=== PATIENT | female | born 1945 | race Caucasian/White ===

== ENCOUNTER → 2022-07-23 00:59 | Outpatient (CLI) | payer BC, SELFPAY ==
--- NOTE | 2022-07-23 08:15 | DI.MRI_ITS ---
Exam(s) MR LOWER JOINT LT WO EXAM: MR LOWER JOINT LT WO CLINICAL HISTORY: Left hip pain, weakness,TROCHANTERIC BURSITIS, M70.62,S76.012A TECHNIQUE: Multiplanar multisequence MRI of the knee was performed. COMPARISON: DX XR HIP RT MIN 2V AND PELVIS from 12/28/2012 MR MR HIP RT WO CONTRAST from 01/09/2021 FINDINGS: MARROW:No evidence of stress fracture nor avascular necrosis nor ominous osseous lesions in the left hip. Some degenerative change is noted with degenerative subarticular cysts evident in the superior aspect of the acetabulum. There are no degenerative subarticular cysts in the femoral head and no ev idence of femoral head osteophytes. Labrum: No obvious labral tear. No evidence of paralabral cyst. Main finding here is prominent signal abnormality in the left gluteus medius muscle with signal abnor mality in this muscle quite prominent above the hip joint level and extending down to the hip and inv olving the tendon consistent with tear. There is also prominent fluid at and below this level with c raniocaudal measurement of 6 cm and approximately 2 cm wide, consistent with prominent ipsilateral tr ochanteric bursitis. Incidentally noted is artifact projected over the left sacroiliac joint consistent with 2 parallel la teral to medial directed screws across the left SI joint. No abnormal intraosseous signal at this le ciaran. On the opposite-right side there is a right hip prosthesis. There are 2 separate fluid collections o n the right side. There is a fluid collection lateral to the greater trochanter consistent with prob able trochanteric bursitis. This measures 3 cm AP by 1.5 cm wide by 6 cm craniocaudal. Fluid is als o seen related to the distal gluteus medius tendon on this side. The 2nd fluid collection on the right side is more medially located, measuring 9.5 cm craniocaudal by 4 cm wide by 2.8 cm AP. This is intimately related to the ischial tuberosity and below but also ext ends cephalad to the posterior aspect of the acetabulum. There is some mild bone edema evident in th e bone at this level. IMPRESSION: 1. On the left side prominent signal abnormality in the gluteus medius musculature extending from the iliac crest down to the hip level and there is an associated prominent lobulated fluid collection wi th measurements as above, either related to the tear, trochanteric bursitis, or a combination thereof . There is, however, no abnormal osseous signal in the hip itself. Some degenerative changes noted in the hip with degenerative subarticular cysts in the superior aspect of the left hip acetabulum. 2. On the opposite-right side there is a prosthesis and 2 separate prominent fluid collections as andreas cribed above, 1 of which is similar but smaller to the opposite side and probably consistent with tro chanteric bursitis. The other separate 2nd right-side fluid collection is more medially located exte nding from the posterior acetabulum down to and slightly below the ischial tuberosity level. This ma y be related to prior hamstring muscle group tear. DATA REPOSITORY:
== END ==
PROVIDERS: PCP Neuromusculoskeletal Medicine & OMM; Visit Provider Student in an Organized Health Care Education/Training Program
DX: M70.62 Trochanteric bursitis, left hip (principal); S76.012A Strain of muscle, fascia and tendon of left hip, initial encounter; Z96.641 Presence of right artificial hip joint
CPT/HCPCS: 73721

== ENCOUNTER 2023-02-08 16:13 | Outpatient (CLI) | payer BC, SELFPAY ==
--- NOTE | 2023-02-08 15:30 | DI.RAD_ITS ---
Exam(s) XR HIP PELVIS ADULT BL EXAM: XR HIP PELVIS ADULT BL CLINICAL HISTORY: bilateral hip pain. TECHNIQUE: 2D digital imaging was performed of the pelvis and bilateral hips. Three images were obt ained. AP pelvis and lateral views of both hips were obtained. COMPARISON: DX XR HIP RT MIN 2V AND PELVIS from 12/28/2012 RF XR HIP MIN 2V LT from 05/20/2022 FINDINGS: BONES: No acute fracture is present. No bony destructive lesion is seen. JOINTS: No dislocation present. The patient's right total hip replacement is stable. There are degen erative changes seen in the left hip with joint space narrowing present. Postsurgical changes are ag ain seen in the left SI joint. This is incompletely imaged. SOFT TISSUE: Normal. IMPRESSION: 1. Stable right total hip replacement. 2. Degenerative changes in the left hip. DATA REPOSITORY: RADIATION DOSE DELIVERED:
== END 2023-02-08 16:14 | disposition home or self-care (01) ==
LOC: DIORS 16:14
PROVIDERS: PCP Neuromusculoskeletal Medicine & OMM; Referring Provider Neuromusculoskeletal Medicine & OMM; Visit Provider Physician Assistant
DX: Z47.1 Aftercare following joint replacement surgery (principal); M16.12 Unilateral primary osteoarthritis, left hip
CPT/HCPCS: 73521

== ENCOUNTER 2023-03-09 01:38 | Outpatient (CLI) | payer BC, SELFPAY ==
--- NOTE | 2023-03-09 08:00 | DI.MRI_ITS ---
Exam(s) MR LOWER JOINT RT WO EXAM: MR LOWER JOINT RT WO CLINICAL HISTORY: R HIP PAIN, TEAR RT GLUTEUS MEDIUS TENDON, TROCHANTERIC BURSITIS, S76.011A, TECHNIQUE: Multiplanar multisequence MRI of right hip was performed COMPARISON: MR MR HIP RT WO CONTRAST from 01/09/2021 MR MR LOWER JOINT LT WO from 07/23/2022 FINDINGS: Bones: There is artifact from the patient's right total hip replacement. There is again seen a flui d collection adjacent to the greater trochanter on the right hip. It shows interval increase in size and extent compared to the prior examination. It now measures 6.1 cm long compared to 2.8 cm long o n the prior examination. No bone marrow edema is seen. There are postsurgical changes seen in the le ft sacroiliac joint. The right sacroiliac joint appears unremarkable as does the symphysis pubis. Musculotendinous structures: There is marked atrophy again seen of the right gluteus medius and mini mus muscles. There is a tear of the right gluteus medius tendon. There also appears to be a tear of the left gluteus medius tendon. There is fluid seen adjacent to the left greater trochanter. The h yperintense signal associated with the right hamstrings has resolved. IMPRESSION: 1. Tear of the right and left gluteus medius tendons. 2. Artifact from the patient's right total hip replacement is noted. 3. Fluid adjacent to the greater trochanter on the right hip measuring 6.1 cm long. 4. Stable marked atrophy of the right gluteus medius and minimus muscles. DATA REPOSITORY:
== END 2023-03-09 01:58 ==
LOC: DI 01:39
PROVIDERS: PCP Neuromusculoskeletal Medicine & OMM; Visit Provider Student in an Organized Health Care Education/Training Program
DX: M70.61 Trochanteric bursitis, right hip (principal); S76.011A Strain of muscle, fascia and tendon of right hip, initial encounter; Z96.641 Presence of right artificial hip joint; T84.090A Other mechanical complication of internal right hip prosthesis, initial encounter
CPT/HCPCS: 73721

== ENCOUNTER 2023-04-08 10:18 | Day surgery (SDC) | payer BC, SELFPAY ==
[2023-04-08] VITALS (8 sets, daily range): BP systolic 130–173; BP diastolic 85–103; PULSE 61–73; RESP 14–19; TEMP 36.2–36.7; O2SAT 96–100; BMI 22.6
--- NOTE | 2023-04-08 07:26 | W.PM.DSUDISC ---
Date of service: 04/08/23 Time of Service: 14:00 Discharge Plan Disposition Patient Disposition: Home Condition: Stable Discharge Details Attending Provider: Kade Hodge Primary Care Provider: Chaz Lott [place] Meds and New Rx's Prescriptions: New ondansetron 4 mg tablet,disintegrating 4 mg PO Q6H PRN (Reason: nausea or vomiting) Qty: 5 0RF oxycodone 5 mg tablet 2.5 - 5 mg PO .Q4-6H MDD 6 tabs PRN (Reason: severe pain) Qty: 18 0RF aspirin 81 mg capsule 81 mg PO DAILY 14 Days Qty: 14 0RF Continued Nucala 100 mg/mL auto-injector 100 mg subcut Q4W Qty: 1 12RF albuterol sulfate 90 mcg/actuation HFA aerosol inhaler 2 puff inhalation Q4H PRN coenzyme Q10 [Co Q-10] 100 mg capsule 100 mg PO DAILY fluticasone propionate [Flonase Allergy Relief] 50 mcg/actuation spray,suspension 1 spray intranasal BID Rx Instructions: administer into each nostril magnesium oxide 500 mg tablet 250 mg PO BID polyethylene glycol 3350 [Miralax] 17 gram/dose powder 17 g PO BID multivitamin Tablet 1 tab PO DAILY potassium chloride 10 mEq capsule, extended release 10 meq PO DAILY sertraline 50 mg tablet 50 mg PO DAILY Trelegy Ellipta 200-62.5-25 mcg blister with device 1 inh inhalation DAILY triamterene-hydrochlorothiazid 37.5-25 mg tablet 1 tab PO DAILY acetaminophen [Tylenol Arthritis Pain] 650 mg tablet extended release 1,300 mg PO Q12H PRN celecoxib 200 mg capsule 200 mg PO DAILY Discontinued diazepam 5 mg tablet 5 mg PO PRN (Reason: Claustrophobia) Rx Instructions: Take 1 60 minutes prior to MRI. Take an additional 1 if still anxious 30 minutes prior to MRI. Discharge Instructions Additional Instructions: Surgery: Right hip endoscopy with iliotibial band release, trochanteric bursectomy, and removal of permanent suture material; Partial gluteal tendon tearing Activity: Weightbearing as tolerated. May use crutches or walker as needed for a few days. Gradually advance to full range of motion and activity over the next few weeks. A physical therapy prescription will be provided separately in the office at follow up if needed. Prescriptions: Aspirin 81 mg take 1 daily to prevent a blood clot for 2 weeks, starting tomorrow Use home prescription for Celebrex (celecoxib) 200 mg Oxycodone 2.5-5 mg take 0.5-1 tablet every 4-6 hours as needed for severe pain You may use [id number] Tylenol (acetaminophen) as needed for mild pain. These pain medications may be taken all at once or in different combinations as needed. Also, recommend Colace (docusate) as a stool softener as surgery and pain medicine cause constipation. You may try [id number] diphenhydramine (Benadryl) 25-50 mg nightly as a sleep aid Ondansetron (Zofran) 4 mg take 1 orally dissolving tablet every 6 hours as needed for nausea or vomiting Dressings: Leave dressing in place for 3 days. May then remove and leave open to air or cover incisions with Band-Aids. Leave the sticky Steri-Strips in place until they fall off or remove them after you shower. May shower after 5 days. Follow-up: 10-[address] Hodge You may take off the leg compression stockings this evening at home. You may also leave them on a few days longer if you have a history of leg swelling or edema. Let us know right away if you develop any redness, drainage, fevers, chest pain, or trouble breathing. Do not drink alcohol or drive for at least 24 hours after anesthesia. Please call the office during business hours with any questions or concerns. Discharge Orders Discharge Orders: Discharge Order (Routine); Ordered 04/08/23 Ordered By: Kiera Muller DS: Diagnosis Discharge Diagnosis (1) Tear of right gluteus medius tendon: Status: Acute (2) Trochanteric bursitis, right hip: Status: Acute
--- NOTE | 2023-04-08 07:28 | ROE_ITS ---
Date of service: 04/08/23 Time of Service: 12:30 Operative Note Operative Note DATE OF PROCEDURE: 04/08/23 PRE-OP DIAGNOSIS: Right hip 1. Recurrent iliotibial band syndrome 2. Recurrent trochanteric bursitis 3. Chronic gluteal tendon tear POST-OP DIAGNOSIS: same PROCEDURE: Right hip endoscopic 1. Revision iiliotibial band release, CPT# 81588 2. Revision trochanteric bursectomy, CPT# 12456 3. Removal of hardware, CPT# 81652: Permanent suture material from prior gluteal gluteal tendon repair to trochanteric bone SURGEON: aKde Hodge [employer]: Kiera Muller ANESTHESIA TYPE: Local By Surgeon and General LMA/ETT Refer to Anesthesia Record ESTIMATED BLOOD LOSS: 5 COMPLICATIONS: None Patient was transported to: PACU Patient's condition: stable Indications: Please see complete medical record for details. Findings: Taught and scarred iliotibial band. Thickened trochanteric bursa. Diffuse mild to moderate grade partial tearing about the greater trochanter involving the vastus lateralis, gluteus minimus, and gluteus medius. Largely intact gluteus medius tendon at site of prior repair posteriorly and proximally to the greater trochanter. Loose prior repair suture material at the site of largely healed prior repair. Procedure Description: In the operating room, general anesthesia was induced. The patient was positioned supine on the [place] operating room table. All bony prominences were well-padded. Preoperative antibiotics were administered. The hip was prepped and draped in the usual sterile fashion. The correct patient, procedure, and side of the procedure were all verified prior to incision. 20 cc of 0.25% bupivacaine containing epinephrine was infiltrated about the subcutaneous tissues for the planned anterior lateral and distal anterolateral portals as well as deeply over the greater trochanter. A knife was used to incise the skin for the anterior lateral and distal anterolateral portals followed by blunt dissection subcutaneously. Under fluoroscopic guidance, a switching stick and arthroscope were inserted localizing the iliotibial band over the greater trochanter. Blunt dissection and the mechanical shaver were used to resect fat and overlying tissue about the center of the iliotibial band and carefully expose the anterior and posterior margins. Once there was adequate exposure of the IT band, the greater trochanter was again localized under fluoroscopic guidance with a spinal needle inserted through the skin down to bone. This central area was marked using the radiofrequency ablator. A Weber blade was brought in and used to create a 2 cm longitudinal incision in line with the IT band fibers as well as extending it in a cruciate fashion with 2 cm incisions anteriorly and posteriorly. The radiofrequency ablator was used to achieve hemostasis. The mechanical shaver was then used to widely debride the IT band released edges exposing the trochanteric bursa. The mechanical shaver was then used to excise the trochanteric bursa, going layer by layer switching with blunt instruments to ensure proper removal given revision setting with abnormal scar tissue, taking care to protect musculature about the margins of the greater trochanter as well as neurovascular structures especially posteriorly. There was excellent visualization of the vastus lateralis as well as gluteus medius confirming appropriate bursa excision. Debridement and trochanteric bursa excision was expanded more widely given the revision setting. Gluteus job tendon was visualized as well as far down the lateral thigh below the iliotibial band. The hip was brought through range of motion including internal and external rotation and there was no impinging iliotibial band tissue or remaining pathologic bursa. The viewing and working portals were switched and appropriate IT band release, trochanteric bursa excision, and hemostasis confirmed. There was some unusual appearing synovitis actually in the chronic defect space proximal and posterior to the greater trochanter that was debrided with mechanical shaver. The prior site of gluteus medius repair had white permanent suture material. It was probed and found to be loose. It was removed in pieces with a pituitary rongeur and fairly extensive in length. The tendon repair was otherwise intact and not displaced off the greater tuberosity. The superficial fraying of the medius, minimus, and lateralis about the lateral margin of the trochanter did not warrant repair. However, there did appear to be significant chronic atrophy fairly globally about the gluteal tendon musculature. Suction was used to remove fluid from the endoscopic space. The portals were closed using 3-0 Monocryl in a buried fashion. Steri-Strips were applied over the incisions followed by Xeroform, 4 x 4 gauze, an ABD pad, and secured with tape. The patient awoke from anesthesia without complication and was transferred to the recovery room in a stable condition.
[2023-04-08] MEDS: Lactated Ringers 1,000 ML 30 ML IV (11:10)
--- NOTE | 2023-04-08 11:15 | W.ANESPRE ---
General Info Date of Service Date Performed: 04/08/23 Height: 5 ft 3 in Weight: 57.8 kg Body Mass Index (BMI): 22.6 Surgical Procedure: Operation Date: 04/08/23 12:20 Proposed Procedure Side Surgeon p Endoscopic Iliotibial Band Release w/Trochanteric Bursectomy, Possible Gluteal Repair Right Kade Hodge MD Meds Allergies and Home Medications Allergies Allergy/AdvReac Type Severity Reaction Status Date / Time hydrocodone AdvReac Mild Nausea Verified 04/08/23 10:36 tramadol AdvReac Mild Nausea Verified 04/08/23 10:36 codeine AdvReac Nausea Verified 04/08/23 10:36 hydromorphone AdvReac Nausea Verified 04/08/23 10:36 Home Medication Medication Instructions Recorded acetaminophen 650 mg 1,300 mg PO Q12H PRN 06/08/22 tablet,extended release (Tylenol Arthritis Pain) albuterol sulfate 90 mcg/actuation 2 puff inhalation Q4H PRN 06/08/22 aerosol inhaler coenzyme Q10 100 mg capsule (Co 100 mg PO DAILY 06/08/22 Q-10) fluticasone fur. 200 mcg-umeclid 1 inh inhalation DAILY 06/08/22 62.5 mcg-vilant 25 mcg inhalat.powder (Trelegy Ellipta) fluticasone propionate 50 1 spray intranasal BID 06/08/22 mcg/actuation nasal spray,suspension (Flonase Allergy Relief) magnesium oxide 500 mg tablet 250 mg PO BID 06/08/22 multivitamin 1 tab PO DAILY 06/08/22 polyethylene glycol 3350 17 17 g PO BID 06/08/22 gram/dose oral powder (Miralax) potassium chloride 10 mEq 10 meq PO DAILY 06/08/22 capsule,extended release sertraline 50 mg tablet 50 mg PO DAILY 06/08/22 triamterene 37.5 1 tab PO DAILY 06/08/22 mg-hydrochlorothiazide 25 mg tablet celecoxib 200 mg capsule 200 mg PO DAILY 02/04/23 mepolizumab 100 mg/mL subcutaneous 100 mg subcut Q4W #1 mL 02/15/23 auto-injector (Nucala) aspirin 81 mg capsule 81 mg PO DAILY prevent blood clot 04/08/23 14 days #14 caps diazepam 5 mg tablet 5 mg PO PRN Claustrophobia 04/08/23 ondansetron 4 mg disintegrating 4 mg PO Q6H PRN nausea or vomiting 04/08/23 tablet #5 tabs oxycodone 5 mg tablet 2.5 - 5 mg PO .Q4-6H PRN severe 04/08/23 pain #18 tabs Current Visit Medications: Current Medications Generic Name Dose Route Start Last Admin Trade Name Pankaj PRN Reason Stop Dose Admin Ringer's Solution 1,000 mls @ 30 mls/hr 04/08/23 06:00 IV 04/08/23 16:00 INFUSION ALEXANDER Cefazolin Sodium/Dextrose 2 gm in 50 mls @ 100 mls/hr 04/08/23 06:00 Ancef Duplex IVPB 04/08/23 23:59 PREOP ALEXANDER IV Miscellaneous Supplies 1 each 04/08/23 06:00 Iv Access IV 04/08/23 23:59 DIRECTED ALEXANDER Sodium Chloride 0 ml 04/08/23 06:00 Normal Saline Flush 10 Ml Syr IV 04/08/23 23:59 PRN PRN Sodium Chloride 0 ml 04/08/23 06:00 Normal Saline 10 Ml Vial IJ 04/08/23 23:59 DIRECTED PRN Sterile Water 0 ml 04/08/23 06:00 Water,Injection,Sterile 10 Ml Vial IJ 04/08/23 23:59 DIRECTED PRN PFSH Active Problems Active Problems: Problem Status Onset Code Tear of right gluteus medius tendon S76.011A Trochanteric bursitis, right hip M70.61 Proximal humeral fracture S42.209A Postoperative nausea and vomiting R11.2, Z98.890 Breast calcification seen on mammogram R92.1 Left hip pain M25.552 Hand joint pain M25.549 GERD (gastroesophageal reflux disease) K21.9 Trochanteric bursitis of left hip M70.62 Tear of left gluteus medius tendon S76.012A Medical History Medical History Allergic rhinitis Alopecia Anemia Anxiety Chronic constipation Claustrophobia Degenerative joint disease involving multiple joints Gastric ulcer Hyperlipidemia Hypertensive disorder Hypokalemia Iliotibial band syndrome of left side Moderate persistent asthma Osteoporosis Spinal stenosis of lumbar region Medical History Comments:: Hx spinal fusion, lumbar stenosis Surgical History Surgical History History of appendectomy 09/19/66 History of colonoscopy History of esophagogastroduodenoscopy (EGD) 04/04/19 History of hysterectomy 09/19/92 History of spinal fusion 01/2018 Hx of cholecystectomy 09/19/70 Status post arthroscopy of hip 03/29/20 Tobacco Smoking/Tobacco Use Status: Former Tobacco Use Alcohol Alcohol Intake: current Alcohol intake frequency: holidays/special occasions only Substance Use Substance use: Never Substance use type: does not use Vital Signs and Lab Results Vital Signs Most Recent Vital Signs in EMR: Most Recent Vital Signs Temp Pulse Resp BP Pulse Ox 36.7 C 73 16 163/103 H 98 04/08/23 10:20 04/08/23 10:20 04/08/23 10:20 04/08/23 10:20 04/08/23 10:20 Lab Results Blood Type / Crossmatch: No Data to Display Complete Blood Count: No Data to Display Complete Metabolic Panel: No Data to Display Liver Function Panel: No Data to Display Coagulation Panel: No Data to Display Cardiac Panel: No Data to Display Arterial Blood Gas: No Data to Display Venous Blood Gas: No Data to Display Pancreas Panel: No Data to Display Thyroid Panel: No Data to Display Infectious Disease: No Data to Display Blood Cultures: No Data to Display Toxicology Panel: No Data to Display Anesthesia Assessment and Plan Anesthesia History Personal History: PONV Family History: No Family History of Anesthesia Complications Exercise Tolerance Exercise Tolerance: Metabolic Equivalents>4 Pertinent Negatives Pertinent Negatives: No Major Cardiovascular Symptoms or Complaints, No Major Pulmonary Symptoms or Complaints and No History of CVA/TIA Cardiac & Pulmonary Exam Cardiac Exam: Normal S1/S2 Heart Sounds Pulmonary Exam: Clear Bilateral Breath Sounds Cardiac and Pulmonary Comment:: Last two weeks has used her rescue inhaler 2-3 times a day due to heat, high humidity, and smoke. Used her albuterol inhaler this am. Implantable Cardiac Device Does patient have a Pacemaker or an ICD?: No Airway Exam Known Difficult Airway: No Mallampati Class: 2 Mouth Opening: Normal (> 3cm) Thyromental Distance: Greater than 3 cm Neck Range of Motion: Full ROM Neck Circumference: Normal Teeth Condition: Removable Dentures/Plates Upper (partial) and Removable Dentures/Plates Lower (partial) ASA Classification ASA Score: ASA 3 Emergency Case?: No NPO Status NPO Status: NPO Clears >2 hours, Solids >8 hours Anesthesia Plan Resuscitation Status: Full Code Anesthesia Technique: General Anesthesia Airway Planned: Endotracheal Tube Monitors Used: Standard Monitors
[2023-04-08] MEDS: ceFAZolin 2 GM/50 ML BAG IVPB (12:20)
--- NOTE | 2023-04-08 13:31 | DI.RAD_ITS ---
Exam(s) XR HIP RT IN OR EXAM: XR HIP RT IN OR CLINICAL HISTORY: ENDOSCOPIC ILIOTIBIAL BAND RELEASE. TECHNIQUE: 2D and realtime digital imaging was performed. COMPARISON: No exams were available for comparison FINDINGS: Please see procedure note for details. Fluoro time: 4.4seconds RADIATION DOSE DELIVERED: ana Ramirez=0.434 mGy
[2023-04-08] MEDS: EPINEPHrine 30 MG/30 ML VIAL (14:01)
--- NOTE | 2023-04-08 14:35 | W.ANESPOSTOP ---
Postoperative Evaluation Date, Time and Location Date Performed: 04/08/23 Time Performed: 14:25 Patient Location: PACU Vital Signs Most Recent Imported Vital Signs: Most Recent Vital Signs Temp Pulse Resp BP Pulse Ox 36.2 C L 61 16 165/100 H 96 04/08/23 14:27 04/08/23 14:27 04/08/23 14:27 04/08/23 14:27 04/08/23 14:27 Pain Score Most Recent Pain Score: Most Recent Pain Score Pain Level 3 04/08/23 10:20 Assessment Mental Status: Awake (Alert & Oriented to Patient Baseline) Airway and Respiratory Function: Patent airway with normal (patient baseline) respiratory exam Cardiovascular Function: Hemodynamically Stable Hydration Status: Adequately Hydrated Nausea & Vomiting: No Nausea or Vomiting Pain: Pain is tolerable per patient Peripheral Nerve Block: Patient did not receive a nerve block
== END 2023-04-08 15:27 | disposition home or self-care (01) ==
PROVIDERS: PCP Neuromusculoskeletal Medicine & OMM; Visit Provider Student in an Organized Health Care Education/Training Program
PROC: (CPT 29863; principal; 2023-04-08 12:00)
DX: M70.61 Trochanteric bursitis, right hip; M76.31 Iliotibial band syndrome, right leg; M76.01 Gluteal tendinitis, right hip
CPT/HCPCS: 27062; 27305; 20680; 73501; J0131; J0690; J1100; J2001; J2405; J2704; J3010

== ENCOUNTER 2024-04-12 15:11 | Outpatient (CLI) | payer BC, SELFPAY ==
--- OUTSIDE RECORDS SUMMARY | 2024-04-12 15:13 | XMS_ITS | Continuity of Care Document ---
Author Organization [facility] Address [address] [place] [address] Care Team Providers Care Pet Care Associate Name Role Phone Jade Stewart Primary Care Physician [phone] Encounter [place] Date(s): 01/15/24 - 01/15/[address] [address] Discharge Disposition: Home or Self Care Attending Physician: Vitor Jasso MD Admitting Physician: Vitor Jasso MD Referring Physician: Vitor Jasso MD Allergies, Adverse Reactions, Alerts Substance Reaction Severity Status codeine Nausea Severe Active HYDROmorphone Nausea Severe Active HYDROcodone Nausea Severe Active traMADol Nausea Severe Active Hayfever Unknown Unknown Active Assessment and Plan Future Scheduled Tests Radiology* XR Sitz Marker Day 5 01/12/24 Immunizations Given and Recorded Vaccine Date Status Refusal Reason influenza, unspecified formulation 1 06/30/23 Issa rded influenza, unspecified formulation 07/06/22 Record ed influenza, unspecified formulation 06/21/21 Record ed influenza, unspecified formulation 05/24/18 Record ed RSV vaccine, preF A-preF B, recombinant 2 06/30/23 Recorded SARS-CoV-2 (COVID-19) mRNA-1273(6y+ biva 09/05/22 Recorded SARS-CoV-2 (COVID-19) mRNA-1273 vaccine 08/21/21 R ecorded SARS-CoV-2 (COVID-19) mRNA-1273 vaccine 12/03/20 R ecorded SARS-CoV-2 (COVID-19) mRNA-1273 vaccine 11/05/20 R ecorded influenza virus vaccine, live 05/31/20 Recorded influenza virus vaccine, live 05/20/19 Recorded zoster vaccine live 04/03/18 Recorded zoster vaccine live 04/13/12 Recorded influenza virus vaccine, inactivated 07/24/17 Issa rded influenza virus vaccine, inactivated 05/15/16 Issa rded influenza virus vaccine, inactivated 05/01/15 Issa rded influenza virus vaccine, inactivated 06/18/14 Issa rded influenza virus vaccine, inactivated 07/30/13 Issa rded influenza virus vaccine, inactivated 06/23/12 Issa rded influenza virus vaccine, inactivated 05/20/11 Issa rded pneumococcal 13-valent conjugate vaccine 08/02/15 Recorded tetanus/diphth/pertuss (Tdap) adult/adol 01/28/12 Recorded pneumococcal 23-polyvalent vaccine 08/06/11 Record ed pneumococcal 23-polyvalent vaccine 02/17/01 Record ed tetanus-diphth toxoids (Td) adult/adol 06/07/07 Re corded 1Result Comment: pharmacy 2Result Comment: pharmacy Medications albuterol 90 mcg/inh aerosol inhaler 180 mcg 2 puffs, Inhale, every 4 hr, PRN as needed for wheezing, # 18 g, 3 Refill(s), Pharmacy: [facility] #[id number], 160.02, cm, 08/11/22 18:03:00 EST, Height/Length Dosing, 61.23, kg, 08/11/22 18:03:00 EST, Weight Dosing Start Date: 04/06/23 Status: Ordered celecoxib 200 mg oral capsule 200 mg = 1 cap, Oral, Daily, # 90 cap, 3 Refill(s), Pharmacy: [facility] #[id number], 160.02, cm, 08/11/22 18:03:00 EST, Height/Length Dosing, 61.23, kg, 08/11/22 18:03:00 EST, Weight Dosing Start Date: 08/29/23 Status: Ordered Co-Q10 100 mg oral capsule 100 mg = 1 cap, Oral, Daily, # 30 cap, 0 Refill(s) Start Date: 03/15/22 Status: Ordered doxycycline hyclate 100 mg oral capsule 100 mg = 1 cap, Oral, BID, # 28 cap, 0 Refill(s), Pharmacy: [facility] #[id number], 160.02, cm, 08/11/22 18:03:00 EST, Height/Length Dosing, 58.9, kg, 10/03/23 10:45:00 EST, Weight Dosing Start Date: 10/03/23 Stop Date: 10/17/23 Status: Ordered fluticasone 50 mcg/inh nasal spray 1 sprays, !-Nasal, BID, SHAKE LIQUID., # 48 g, 0 Refill(s), Pharmacy: [facility] #[id number], 162.56, cm, 11/08/23 11:40:00 EST, Height, 58.7, kg, 11/08/23 11:40:00 EST, Weight Dosing Start Date: 01/09/24 Status: Ordered magnesium oxide 250 mg oral tablet 250 mg = 1 tab, Oral, BID, 0 Refill(s) Start Date: 03/15/22 Status: Ordered MiraLax oral powder for reconstitution 17 g, Oral, BID, dissolve in water before taking, # 255 g, 0 Refill(s) Start Date: 03/15/22 Status: Ordered multivitamin adult, oral tablet 1 tab, Oral, Daily, # 30 tab, 0 Refill(s) Start Date: 03/15/22 Status: Ordered Nucala 100 mg subcutaneous injection See Instructions, Inject 1 pen under skin every 28 days, # 1 EA, 11 Refill(s), Pharmacy: [facility], 160.02, cm, 08/11/22 18:03:00 EST, Height/Length Dosing, 61.23, kg, 08/11/22 18:03:00 EST, Weight Dosing Start Date: 09/17/22 Status: Ordered potassium chloride 10 mEq oral capsule, extended release 20 mEq = 2 cap, Oral, Daily, # 180 cap, 3 Refill(s), Pharmacy: [facility] #[id number], 160.02,cm, 08/11/22 18:03:00 EST, Height/Length Dosing, 61.23, kg, 08/11/22 18:03:00 EST, Weight Dosing Start Date: 03/18/23 Stop Date: 03/12/24 Status: Ordered predniSONE 20 mg oral tablet 20 mg = 1 tab, Oral, BID, # 10 tab, 0 Refill(s), Pharmacy: [facility] #[id number], 160.02, cm,08/11/22 18:03:00 EST, Height/Length Dosing, 58.9, kg, 10/03/23 10:45:00 EST, Weight Dosing Start Date: 10/03/23 Stop Date: 10/08/23 Status: Ordered sertraline 50 mg oral tablet 50 mg = 1 tab, Oral, Daily, # 90 tab, 3 Refill(s), Pharmacy: [facility] #[id number], 160.02, cm, 08/11/22 18:03:00 EST, Height/Length Dosing, 61.23, kg, 08/11/22 18:03:00 EST, Weight Dosing Start Date: 03/18/23 Status: Ordered Trelegy Ellipta 200 mcg-62.5 mcg-25 mcg/inh inhalation powder 1 puffs, Inhale, Daily, for 360 days, # 3 EA, 6 Refill(s), Pharmacy: [facility] #[id number], 160.02, cm, 08/11/22 18:03:00 EST, Height/Length Dosing, 61.23, kg, 08/11/22 18:03:00 EST, Weight Dosing Start Date: 02/08/23 Status: Ordered triamterene-hydrochlorothiazide 37.5 mg-25 mg oral tablet 2 tab, Oral, Daily, # 90 tab, 3 Refill(s), Pharmacy: [facility] #[id number], 160.02, cm, 08/11/22 18:03:00 EST, Height/Length Dosing, 61.23, kg, 08/11/22 18:03:00 EST, Weight Dosing Start Date: 03/18/23 Status: Ordered Tylenol 8 HR Arthritis Pain 650 mg oral tablet, extended release 1,300 mg = 2 tab, Oral, BID, 0 Refill(s) Start Date: 03/15/22 Status: Ordered Problem List Condition Confirmation Course Effective Dates Status H ealth Status Informant Allergic rhinitis Confirmed Active Alopecia Confirmed Active Anemia Confirmed 01/12/19 Active Anxiety Confirmed 02/22/19 Active Chronic constipation Confirmed 02/22/19 Active Claustrophobia Confirmed Active Dysfunction of vestibular system Confirmed Active Proximal humerus fracture Confirmed Active Gastric ulcer Confirmed 02/22/19 Active Gastroesophageal reflux disease Confirmed Active Generalized abdominal pain Confirmed Active Hand joint pain Confirmed Active Left hip pain Confirmed Active Hyperlipidemia Confirmed Active Hypertensive disorder Confirmed Active Hypokalemia Confirmed Active Mammographic calcification of breast Confirmed Active Moderate persistent asthma Confirmed Active Degenerative joint disease involving multiple joints 1 Confirmed 02/22/19 Active Osteoporosis Confirmed 06/20/18 Active Postoperative nausea and vomiting Confirmed 03/29/19 Active Seasonal allergic rhinitis Confirmed Active Spinal stenosis of lumbar region Confirmed Active Wrinkle Confirmed Active 1From 09-15-2021 visit: Continue celebrex and tylenol arthritis for pain mangement. 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 2002. 1997 Social History Social History Type Response Smoking Status Smoking tobacco use: Former tobacco user;Never; Number used per day: 1/2 ppd; Number of years: 25; 1 entered on: 03/18/23 Sex Female 1quit 1971 Patient Care team information Care Team Personnel Name: Jade Stewart NP Position: Physician Member Role: Informed Provider Address: Address: [address] [place] [phone] [place] Care Team Related Persons Name: GEO AMEZCUA Address: Home [address] [place] [phone] [place] Name: DOMINGO MUNROE
--- OUTSIDE RECORDS SUMMARY | 2024-04-12 15:13 | XMS_ITS | Continuity of Care Document ---
Author Organization [facility] Address [address] [place] [address] Care Team Providers Care On Site Coordinator Name Role Phone Jade Stewart Primary Care Physician Encounter [place] Date(s): 01/13/24 - 01/13/[address] [address] Encounter Diagnosis Chronic constipation(Discharge Diagnosis) - 01/13/24 Discharge Disposition: Home or Self Care Attending Physician: Vitor Jasso MD Admitting Physician: Vitor Jasso MD Referring Physician: Vitor Jasso MD Allergies, Adverse Reactions, Alerts Substance Reaction Severity Status codeine Nausea Severe Active HYDROmorphone Nausea Severe Active HYDROcodone Nausea Severe Active traMADol Nausea Severe Active Hayfever Unknown Unknown Active Assessment and Plan Future Scheduled Tests Radiology* XR Sitz Marker Day 3 01/12/24 * XR Sitz Marker Day 5 01/12/24 Immunizations [...] wheezing, # 18 g, 3 Refill(s), Pharmacy: [facility] #[id number], 160.02, cm, 08/11/22 18:03:00 EST, Height/Length Dosing, 61.23, kg, 08/11/22 18:03:00 EST, Weight Dosing Start Date: 04/06/23 Status: Ordered celecoxib 200 mg oral capsule 200 mg = 1 cap, Oral, Daily, # 90 cap, 3 Refill(s), Pharmacy: [facility] #[id number], 160.02, cm, 08/11/22 18:03:00 EST, Height/Length Dosing, 61.23, kg, 08/11/22 18:03:00 EST, Weight Dosing Start Date: 08/29/23 Status: Ordered Co-Q10 100 mg oral capsule 100 mg = 1 cap, Oral, Daily, # 30 cap, 0 Refill(s) Start Date: 03/15/22 Status: Ordered doxycycline hyclate 100 mg oral capsule 100 mg = 1 cap, Oral, BID, # 28 cap, 0 Refill(s), Pharmacy: [facility] #[id number], 160.02, cm, 08/11/22 18:03:00 EST, Height/Length Dosing, 58.9, kg, 10/03/23 10:45:00 EST, Weight Dosing Start Date: 10/03/23 Stop Date: 10/17/23 Status: Ordered fluticasone 50 mcg/inh nasal spray 1 sprays, !-Nasal, BID, SHAKE LIQUID., # 48 g, 0 Refill(s), Pharmacy: [facility] #[id number], 162.56, cm, 11/08/23 11:40:00 EST, Height, 58.7, [...] days, # 1 EA, 11 Refill(s), Pharmacy: [facility], 160.02, cm, 08/11/22 18:03:00 EST, Height/Length Dosing, 61.23, kg, 08/11/22 18:03:00 EST, Weight Dosing Start Date: 09/17/22 Status: Ordered potassium chloride 10 mEq oral capsule, extended release 20 mEq = 2 cap, Oral, Daily, # 180 cap, 3 Refill(s), Pharmacy: [facility] #[id number], 160.02,cm, 08/11/22 18:03:00 EST, Height/Length Dosing, 61.23, kg, 08/11/22 18:03:00 EST, Weight Dosing Start Date: 03/18/23 Stop Date: 03/12/24 Status: Ordered predniSONE 20 mg oral tablet 20 mg = 1 tab, Oral, BID, # 10 tab, 0 Refill(s), Pharmacy: [facility] #[id number], 160.02, cm,08/11/22 18:03:00 EST, Height/Length Dosing, 58.9, kg, 10/03/23 10:45:00 EST, Weight Dosing Start Date: 10/03/23 Stop Date: 10/08/23 Status: Ordered sertraline 50 mg oral tablet 50 mg = 1 tab, Oral, Daily, # 90 tab, 3 Refill(s), Pharmacy: [facility] #[id number], 160.02, cm, 08/11/22 18:03:00 EST, Height/Length Dosing, 61.23, kg, 08/11/22 18:03:00 EST, Weight Dosing Start Date: 03/18/23 Status: Ordered Trelegy Ellipta 200 mcg-62.5 mcg-25 mcg/inh inhalation powder 1 puffs, Inhale, Daily, for 360 days, # 3 EA, 6 Refill(s), Pharmacy: [facility] #[id number], 160.02, cm, 08/11/22 18:03:00 EST, Height/Length Dosing, 61.23, kg, 08/11/22 18:03:00 EST, Weight Dosing Start Date: 02/08/23 Status: Ordered triamterene-hydrochlorothiazide 37.5 mg-25 mg oral tablet 2 tab, Oral, Daily, # 90 tab, 3 Refill(s), Pharmacy: [facility] #[id number], 160.02, cm, 08/11/22 18:03:00 EST, Height/Length Dosing, [...] gastric ulcer 11/01/12 3WNL 04/08/14 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 2002. 1997 Social History Social History Type Response Smoking Status Smoking tobacco use: Former tobacco user;Never; Number used per day: 1/2 ppd; Number of years: 25; 1 entered on: 03/18/23 Sex Female 1quit 1971 Patient Care team information Care Team Personnel Name: Jade Stewart NP Position: Physician Member Role: Informed Provider Address: Address: [address] [place] [phone] [place] Care Team Related Persons Name: GEO AMEZCUA Address: Home [address] [place] [phone] [place] Name: DOMINGO MUNROE
--- OUTSIDE RECORDS SUMMARY | 2024-04-12 15:13 | XMS_ITS | Continuity of Care Document ---
Author Organization [facility] Address [address] [place] [address] Care Team Providers Care Barbering Teacher Name Role Phone Jade Stewart Primary Care Physician [phone] Encounter [place] Date(s): 02/28/24 - 02/28/[address] [address] Discharge Disposition: Home Allergies, Adverse Reactions, Alerts Substance Reaction Severity Status codeine Nausea Severe Active HYDROmorphone Nausea Severe Active HYDROcodone Nausea Severe Active traMADol Nausea Severe Active Hayfever Unknown Unknown Active Assessment and Plan Future Scheduled Tests Radiology* MG Mammo Screening Bilateral w/ Waldemar 02/28/24 Immunizations Given and Recorded Vaccine Date Status [...] wheezing, # 18 g, 3 Refill(s), Pharmacy: [facility] #[id number], 160.02, cm, 08/11/22 18:03:00 EST, Height/Length Dosing, 61.23, kg, 08/11/22 18:03:00 EST, Weight Dosing Start Date: 04/06/23 Status: Ordered celecoxib 200 mg oral capsule 200 mg = 1 cap, Oral, Daily, # 90 cap, 3 Refill(s), Pharmacy: [facility] #[id number], 160.02, cm, 08/11/22 18:03:00 EST, Height/Length Dosing, 61.23, kg, 08/11/22 18:03:00 EST, Weight Dosing Start Date: 08/29/23 Status: Ordered Co-Q10 100 mg oral capsule 100 mg = 1 cap, Oral, Daily, # 30 cap, 0 Refill(s) Start Date: 03/15/22 Status: Ordered doxycycline hyclate 100 mg oral capsule 100 mg = 1 cap, Oral, BID, # 28 cap, 0 Refill(s), Pharmacy: [facility] #[id number], 160.02, cm, 08/11/22 18:03:00 EST, Height/Length Dosing, 58.9, kg, 10/03/23 10:45:00 EST, Weight Dosing Start Date: 10/03/23 Stop Date: 10/17/23 Status: Ordered fluticasone 50 mcg/inh nasal spray 1 sprays, !-Nasal, BID, SHAKE LIQUID., # 48 g, 0 Refill(s), Pharmacy: [facility] #[id number], 162.56, cm, 11/08/23 11:40:00 EST, Height, 58.7, [...] days, # 1 EA, 11 Refill(s), Pharmacy: [facility], 160.02, cm, 08/11/22 18:03:00 EST, Height/Length Dosing, 61.23, kg, 08/11/22 18:03:00 EST, Weight Dosing Start Date: 09/17/22 Status: Ordered potassium chloride 10 mEq oral capsule, extended release 20 mEq = 2 cap, Oral, Daily, # 180 cap, 3 Refill(s), Pharmacy: [facility] #[id number], 160.02,cm, 08/11/22 18:03:00 EST, Height/Length Dosing, 61.23, kg, 08/11/22 18:03:00 EST, Weight Dosing Start Date: 03/18/23 Stop Date: 03/12/24 Status: Ordered predniSONE 20 mg oral tablet 20 mg = 1 tab, Oral, BID, # 10 tab, 0 Refill(s), Pharmacy: [facility] #[id number], 160.02, cm,08/11/22 18:03:00 EST, Height/Length Dosing, 58.9, kg, 10/03/23 10:45:00 EST, Weight Dosing Start Date: 10/03/23 Stop Date: 10/08/23 Status: Ordered sertraline 50 mg oral tablet 50 mg = 1 tab, Oral, Daily, # 90 tab, 3 Refill(s), Pharmacy: [facility] #[id number], 160.02, cm, 08/11/22 18:03:00 EST, Height/Length Dosing, 61.23, kg, 08/11/22 18:03:00 EST, Weight Dosing Start Date: 03/18/23 Status: Ordered Trelegy Ellipta 200 mcg-62.5 mcg-25 mcg/inh inhalation powder 1 puffs, Inhale, Daily, for 360 days, # 3 EA, 6 Refill(s), Pharmacy: [facility] #[id number], 160.02, cm, 08/11/22 18:03:00 EST, Height/Length Dosing, 61.23, kg, 08/11/22 18:03:00 EST, Weight Dosing Start Date: 02/08/23 Status: Ordered triamterene-hydrochlorothiazide 37.5 mg-25 mg oral tablet 2 tab, Oral, Daily, # 90 tab, 0 Refill(s), Pharmacy: [facility] #[id number], 163, cm, 01/11/2413:11:00 EDT, Height, 58.8, kg, 01/12/24 13:36:00 EDT, Weight Dosing Start Date: 02/02/24 Status: Ordered Tylenol 8 HR Arthritis Pain [...] Procedure Date Related Diagnosis Body Site Status Colonoscopy 01/11/24 Completed Fusion procedure (procedure) 1 04/19/21 Completed Arthroscopy [...] Physician Member Role: Informed Provider Address: Address: [address] [place] [phone] [place] Care Team Related Persons Name: GEO AMEZCUA Address: Home [address] [place] [phone] [place] Name: DOMINGO MUNROE Address: Home
--- OUTSIDE RECORDS SUMMARY | 2024-04-12 15:13 | XMS_ITS | Continuity of Care Document ---
Author Organization [facility] Address [address] [place] [address] Care Team Providers Care Gypsum Roofer Name Role Phone Jade Stewart Primary Care Physician Encounter [place] Date(s): 03/07/24 - 03/07/[address] [address] Discharge Disposition: Home or Self Care Attending Physician: Adal Phillips MD Admitting Physician: Adal Phillips MD Referring Physician: Adal Phillips MD Allergies, Adverse Reactions, Alerts Substance Reaction Severity Status codeine Nausea Severe Active HYDROmorphone Nausea Severe Active HYDROcodone Nausea Severe Active traMADol Nausea Severe Active Hayfever Unknown Unknown Active Assessment and Plan Future Appointments Diagnostic Tests Pending * Generic Orderable RUST/FRISCO 03/07/24 Future Scheduled Tests Radiology* MG Mammo Screening Bilateral w/ Waldemar 02/28/24 * CT Chest w/o Contrast 03/07/24 Immunizations Given and Recorded Vaccine Date Status [...] wheezing, # 18 g, 3 Refill(s), Pharmacy: [facility] #[id number], 160.02, cm, 08/11/22 18:03:00 EST, Height/Length Dosing, 61.23, kg, 08/11/22 18:03:00 EST, Weight Dosing Start Date: 04/06/23 Status: Ordered amoxicillin-clavulanate 875 mg-125 mg oral tablet 1 tab, Oral, every 12 hr, # 20 tab, 0 Refill(s), Pharmacy: [facility] #[id number], 163, cm, 01/12/24 13:11:00 EDT, Height, 59.7, kg, 03/05/24 15:10:00 EDT, Weight Dosing Start Date: 03/05/24 Stop Date: 03/15/24 Status: Ordered azithromycin 250 mg oral tablet See Instruction, Oral, Daily, take 2 tabs on day 1 and 1 tabs on day 2-5, # 6 tab, 0 Refill(s), Pharmacy: [facility] #[id number], 163, cm, 01/12/24 13:11:00 EDT, Height, 59.7, kg, 03/05/24 15:10:00 EDT, Weight Dosing Start Date: 03/05/24 Status: Ordered benzonatate 200 mg oral capsule 200 mg = 1 cap, Oral, TID, PRN as needed for cough, # 30 cap, 0 Refill(s), Pharmacy: [facility] #[id number], 163, cm, 01/12/24 13:11:00 EDT, Height, 59.7, kg, 03/05/24 15:10:00 EDT, Weight Dosing Start Date: 03/05/24 Stop Date: 03/15/24 Status: Ordered celecoxib 200 mg oral capsule 200 mg = 1 cap, Oral, Daily, # 90 cap, 3 Refill(s), Pharmacy: [facility] #[id number], 160.02, cm, 08/11/22 18:03:00 EST, Height/Length Dosing, 61.23, kg, 08/11/22 18:03:00 EST, Weight Dosing Start Date: 08/29/23 Status: Ordered Co-Q10 100 mg oral capsule 100 mg = 1 cap, Oral, Daily, # 30 cap, 0 Refill(s) Start Date: 03/15/22 Status: Ordered fluticasone 50 mcg/inh nasal spray 1 sprays, !-Nasal, BID, SHAKE LIQUID., # 48 g, 0 Refill(s), Pharmacy: [facility] #[id number], 162.56, cm, 11/08/23 11:40:00 EST, Height, 58.7, [...] # 1 EA, 11 Refill(s), Pharmacy: [facility], 160.02, cm, 08/11/22 18:03:00 EST, Height/Length Dosing, 61.23, kg, 08/11/22 18:03:00 EST, Weight Dosing Start Date: 09/17/22 Status: Ordered potassium chloride 10 mEq oral capsule, extended release 20 mEq = 2 cap, Oral, Daily, # 180 cap, 3 Refill(s), Pharmacy: [facility] #[id number], 160.02,cm, 08/11/22 18:03:00 EST, Height/Length Dosing, 61.23, kg, 08/11/22 18:03:00 EST, Weight Dosing Start Date: 03/18/23 Stop Date: 03/12/24 Status: Ordered predniSONE 20 mg oral tablet 20 mg = 1 tab, Oral, BID, # 20 tab, 0 Refill(s), Pharmacy: [facility] #[id number], 163, cm, 01/12/24 13:11:00 EDT, Height, 59.7, kg, 03/05/24 15:10:00 EDT, Weight Dosing Start Date: 03/05/24 Status: Ordered sertraline 50 mg oral tablet 50 mg = 1 tab, Oral, Daily, # 90 tab, 3 Refill(s), Pharmacy: [facility] #[id number], 160.02, cm, 08/11/22 18:03:00 EST, Height/Length Dosing, 61.23, kg, 08/11/22 18:03:00 EST, Weight Dosing Start Date: 03/18/23 Status: Ordered Trelegy Ellipta 200 mcg-62.5 mcg-25 mcg/inh inhalation powder 1 puffs, Inhale, Daily, for 360 days, # 3 EA, 6 Refill(s), Pharmacy: [facility] #[id number], 160.02, cm, 08/11/22 18:03:00 EST, Height/Length Dosing, 61.23, kg, 08/11/22 18:03:00 EST, Weight Dosing Start Date: 02/08/23 Status: Ordered triamterene-hydrochlorothiazide 37.5 mg-25 mg oral tablet 2 tab, Oral, Daily, # 90 tab, 0 Refill(s), Pharmacy: [facility] #[id number], 163, cm, 01/11/2413:11:00 EDT, Height, 58.8, kg, [...] 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 2002. 1997 Results Laboratory List Name Date Automated Diff 03/07/24 C-Reactive Protein (CRP) 03/07/24 CBC w/ Diff 03/07/24 Comprehensive Metabolic Panel (CMP) 03/07 D-Dimer 03/07/24 Procalcitonin 03/07/24 Most recent to oldest [Reference Range]: 1 WBC [5.0-10.0 x10^3/mcL] 7.0 x10^3/mcL (03/07/24 9:52 AM) RBC [4.1-5.3 x10^6/mcL] 4.3 x10^6/mcL (03/07/24 9:52 AM) Neutro Auto [40.0-75.0 %] 75.6 % *HI* (03/07/24 9:52 AM) Lymph Auto [20.0-50.0 %] 18.5 % *LOW* (03/07/24 9:52 AM) [place] Auto [2.0-15.0 %] 3.9 % (03/07/24 9:52 AM) Basophil Auto [0.0-1.0 %] 0.6 % (03/07/24 9:52 AM) BUN [7-18 mg/dL] 24 mg/dL *HI* (03/07/24 9:52 AM) Glucose Level [74-106 mg/dL] 101 mg/dL (03/07/24 9:52 AM) Potassium Level [3.5-5.1 mmol/L] 3.7 mmo l/L (03/07/24 9:52 AM) MCV [80.0-96.0 fL] 89.1 fL (03/07/24 9:52 AM) CRP [<=10.0 mg/L] 0.8 mg/L (03/07/24 9:52 AM) AST [15-37 unit/L] 27 unit/L (03/07/24 9:52 AM) ALT [14-59 unit/L] 29 unit/L (03/07/24 9:52 AM) MCHC [31.0-35.0 g/dL] 34.1 g/dL (03/07/24 9:52 AM) Sodium Level [136-145 mmol/L] 131 mmol/L *LOW* (03/07/24 9:52 AM) Hct [37.0-47.0 %] 38.4 % (03/07/24 9:52 AM) Calcium Level [8.5-10.1 mg/dL] 9.2 mg/dL (03/07/24 9:52 AM) Albumin Level [3.4-5.0 g/dL] 3.7 g/dL (03/07/24 9:52 AM) Protein Total [6.4-8.2 g/dL] 7.2 g/dL (03/07/24 9:52 AM) MCH [26.0-32.0 pg] 30.4 pg (03/07/24 9:52 AM) Neutro Absolute 5.3 x10^3/mcL *NA* (03/07/24 9:52 AM) Bilirubin Total [0.2-1.0 mg/dL] 0.7 mg/d L (03/07/24 9:52 AM) Hgb [12.0-16.0 g/dL] 13.1 g/dL (03/07/24 9:52 AM) Alk Phos [46-146 unit/L] 74 unit/L (03/07/24 9:52 AM) Platelets [130-450 x10^3/mcL] 270 x10^3/ mcL (03/07/24 9:52 AM) CO2 [21-32 mmol/L] 29 mmol/L (03/07/24 9:52 AM) eGFR Non-AA [>=60] 62 (03/07/24 9:52 AM) eGFR AA [>=60] 62 (03/07/24 9:52 AM) Chloride Level [98-107 mmol/L] 95 mmol/L *LOW* (03/07/24 9:52 AM) Procalcitonin [0.00-0.50 ng/mL] <0.15 ng /mL (03/07/24 9:52 AM) RDW-CV [11.5-14.5 %] 13.0 % (03/07/24 9:52 AM) Imm Gran Auto [0.0-0.9 %] 0.7 % (03/07/24 9:52 AM) Creatinine Level [0.55-1.02 mg/dL] 0.94 mg/dL (03/07/24 9:52 AM) D Dimer, (Quant.) [0.00-0.50 mg/L] 0.78 mg/L 1 *HI* (03/07/24 9:52 AM) Eos, Auto [1.0-6.0 %] 0.7 % *LOW* (03/07/24 9:52 AM) 1Interpretive Data: Exclusion of PE: Effective June 07, 2012 a new D-Dimer assay [INNOVANCE] is being implemented, this test has a new reference range <0.50 mg/L FEU. This assay was evaluated in a multi-center study to validate the exclusion of PE using fresh specimens collected from 701 consecutive patients presenting in the ED with suspected PE. Study patients were evaluated using the Wells' rules to estimate high, moderate or low probability of PE, a D-Dimer result of <0.50 mg/L FEU was considered negative and a D-Dimer result >/= 0.50 was considered positive for PE. Social History Social History Type Response Smoking Status Smoking tobacco use: Former tobacco user;Never; Number used per day: 1/2 ppd; Number of years: 25; 1 entered on: 03/18/23 Sex Female 1quit 1971 Patient Care team information Care Team Personnel Name: Jade Stewart NP Position: Physician Member Role: Informed Provider Address: Address: [address] [place] [phone] [place] Care Team Related Persons Name: GEO AMEZCUA Address: Home [address] [place] [phone] [place] Name: DOMINGO MUNROE Address: Home
--- OUTSIDE RECORDS SUMMARY | 2024-04-12 15:13 | XMS_ITS | Continuity of Care Document ---
Author Organization [facility] Address [address] [place] [address] Care Team Providers Care City Bailiff Name Role Phone Jade Stewart Primary Care Physician [phone] Encounter [facility] Date(s): 01/12/24 - 01/12/[address] [address] Encounter Diagnosis Chronic constipation(Discharge Diagnosis) - 01/12/24 Colon polyps(Discharge Diagnosis) - 01/12/24 Other constipation(Final) - Other hemorrhoids(Final) - Benign neoplasm of ascending colon(Final) - Benign neoplasm of transverse colon(Final) - Benign neoplasm of sigmoid colon(Final) - Discharge Disposition: Home or Self Care Attending Physician: Vitor Jasso MD Admitting Physician: Vitor Jasso MD Referring Physician: Vitor Jasso MD Allergies, Adverse Reactions, Alerts Substance Reaction Severity Status codeine Nausea Severe Active HYDROmorphone Nausea Severe Active HYDROcodone Nausea Severe Active traMADol Nausea Severe Active Hayfever Unknown Unknown Active Assessment and Plan Diagnostic Tests Pending * Surgical Pathology [facility] 01/12/24 Future Scheduled Tests Radiology* XR Sitz Marker Day 1 01/12/24 * XR Sitz Marker Day 3 01/12/24 * XR Sitz Marker Day 5 01/12/24 Functional Status 01/12/24 Recent Travel History No recent travel Other exposure to Infectious Disease Non e Immunizations Given and Recorded Vaccine Date Status [...] wheezing, # 18 g, 3 Refill(s), Pharmacy: [facility] #[id number], 160.02, cm, 08/11/22 18:03:00 EST, Height/Length Dosing, 61.23, kg, 08/11/22 18:03:00 EST, Weight Dosing Start Date: 04/06/23 Status: Ordered celecoxib 200 mg oral capsule 200 mg = 1 cap, Oral, Daily, # 90 cap, 3 Refill(s), Pharmacy: [facility] #[id number], 160.02, cm, 08/11/22 18:03:00 EST, Height/Length Dosing, 61.23, kg, 08/11/22 18:03:00 EST, Weight Dosing Start Date: 08/29/23 Status: Ordered Co-Q10 100 mg oral capsule 100 mg = 1 cap, Oral, Daily, # 30 cap, 0 Refill(s) Start Date: 03/15/22 Status: Ordered doxycycline hyclate 100 mg oral capsule 100 mg = 1 cap, Oral, BID, # 28 cap, 0 Refill(s), Pharmacy: [facility] #[id number], 160.02, cm, 08/11/22 18:03:00 EST, Height/Length Dosing, 58.9, kg, 10/03/23 10:45:00 EST, Weight Dosing Start Date: 10/03/23 Stop Date: 10/17/23 Status: Ordered fluticasone 50 mcg/inh nasal spray 1 sprays, !-Nasal, BID, SHAKE LIQUID., # 48 g, 0 Refill(s), Pharmacy: [facility] #[id number], 162.56, cm, 11/08/23 11:40:00 EST, Height, 58.7, [...] days, # 1 EA, 11 Refill(s), Pharmacy: [facility], 160.02, cm, 08/11/22 18:03:00 EST, Height/Length Dosing, 61.23, kg, 08/11/22 18:03:00 EST, Weight Dosing Start Date: 09/17/22 Status: Ordered potassium chloride 10 mEq oral capsule, extended release 20 mEq = 2 cap, Oral, Daily, # 180 cap, 3 Refill(s), [id number], 160.02,cm, 08/11/22 18:03:00 EST, Height/Length Dosing, 61.23, kg, 08/11/22 18:03:00 EST, Weight Dosing Start Date: 03/18/23 Stop Date: 03/12/24 Status: Ordered predniSONE 20 mg oral tablet 20 mg = 1 tab, Oral, BID, # 10 tab, 0 Refill(s), [id number], 160.02, cm,08/11/22 18:03:00 EST, Height/Length Dosing, 58.9, kg, 10/03/23 10:45:00 EST, Weight Dosing Start Date: 10/03/23 Stop Date: 10/08/23 Status: Ordered sertraline 50 mg oral tablet 50 mg = 1 tab, Oral, Daily, # 90 tab, 3 Refill(s), [facility][id number], 160.02, cm, 08/11/22 18:03:00 EST, Height/Length Dosing, 61.23, kg, 08/11/22 18:03:00 EST, Weight Dosing Start Date: 03/18/23 Status: Ordered Trelegy Ellipta 200 mcg-62.5 mcg-25 mcg/inh inhalation powder 1 puffs, Inhale, Daily, for 360 days, # 3 EA, 6 Refill(s), Pharmacy: [facility] #[id number], 160.02, cm, 08/11/22 18:03:00 EST, Height/Length Dosing, 61.23, kg, 08/11/22 18:03:00 EST, Weight Dosing Start Date: 02/08/23 Status: Ordered triamterene-hydrochlorothiazide 37.5 mg-25 mg oral tablet 2 tab, Oral, Daily, # 90 tab, 3 Refill(s), Pharmacy: [facility] #[id number], 160.02, cm, 08/11/22 18:03:00 EST, Height/Length Dosing, [...] 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 2002. 1997 Vital Signs Most recent to oldest [Reference Range]: 1 2 3 4 Temperature Oral [35.8-37.3 Deg C] 36.7 Deg C (01/12/24 1:11 PM) Temperature Temporal Artery [36-38 Deg C] 36.0 Deg C (01/12/24 4:10 PM) 36.0 Deg C (01/12/24 3:35 PM) 35.8 Deg C *LOW* (01/12/24 3:20 PM) 35.9 Deg C *LOW* (01/12/24 3:20 PM) Temperature Temporal Artery (DegF) [97.3-100 Deg F] 96.8 Deg F *LOW* (01/12/24 4:10 PM) 96.44 Deg F *LOW* (01/12/24 3:20 PM) Peripheral Pulse Rate [60-100 bpm] 68 bpm (01/12/24 4:10 PM) 71 bpm (01/12/24 3:50 PM) 88 bpm (01/12/24 3:45 PM) Heart Rate Monitored [60-100 bpm] 64 bpm (01/12/24 4:10 PM) 71 bpm (01/12/24 3:50 PM) 88 bpm (01/12/24 3:45 PM) Respiratory Rate [12-24 br/min] 15 br/min (01/12/24 4:10 PM) 16 br/min (01/12/24 3:50 PM) 10 br/min *LOW* (01/12/24 3:45 PM) Blood Pressure [90-140/60-90 mmHg] 171/94mmHg *HI* (01/12/24 4:10 PM) 175/103mmHg *HI* (01/12/24 3:50 PM) 170/102mmHg *HI* (01/12/24 3:45 PM) Mean Arterial Pressure, Cuff [65-140 mmHg] 120 mmHg (01/12/24 4:10 PM) 127 mmHg (01/12/24 3:50 PM) 125 mmHg (01/12/24 3:45 PM) Weight 58.8 kg (01/12/24 1:11 PM) Weight Dosing 58.800 kg (01/12/24 1:11 PM) Weight Estimated 61.23 kg (01/04/24 9:18 AM) Height 163 cm (01/12/24 1:11 PM) Body Mass Index 22.13 kg/m2 (01/12/24 1:11 PM) Social History Social History Type Response Smoking Status Smoking tobacco use: Former tobacco user;Never; Number used per day: 1/2 ppd; Number of years: 25; 1 entered on: 03/18/23 Sex Female 1quit 1970 Hospital Discharge Instructions Patient Education 01/12/2024 14:37:46 ss colonoscopy discharge instructions (CUSTOM) Three small polyps removed today. We'll call with pathology, typically in about two weeks. Otherwise normal colonoscopy. Bowel prep was excellent. Sitzmark capsule taken today. Please go to radiology department to have xrays on the following days: 01/12 01/14 01/16 COLONOSCOPY / SIGMOIDOSCOPY Following day: Return to full activity, including work. Diet: Eat and drink normally, unless instructed otherwise. Treatment for common after affects: Mild abdominal pain, bloating, or excessive gas: Rest, eat lightly and use a heating pad. Symptoms to watch for and report to your physician: SEVERE abdominal pain or bloating. Fever within 24 hours after procedure. A large amount of rectal bleeding. (A small amount of blood from the rectum is not serious, especially if hemorrhoids are present.) If a polyp has been removed- for the next seven days: Do not take aspirin. If you did NOT stop taking aspirin before your procedure, continue taking it even if you???ve had a polyp removed. If bright red rectal bleeding occurs, call your physician. If you have had a Colonoscopy: Do not attempt to drive a vehicle or operate power equipment of any kind for at least 24 hours after discharge from the hospital. Do not consume alcoholic beverages or other mood-altering drugs on the day of surgery. Mild irritation at needle site: Apply warm, moist pack to area for 20 minutes four times a day for 2-3 days. Call physician if persistent redness and/or drainage at needle site. In the event of any problems after surgery, do not hesitate to contact your doctor, [facility] , or the Emergency Room at [phone]. Diagnosis: Doctor: Follow Up Appointment: Discharge instructions * Tiny Cisse V RN: PERFORM Event Display: Discharge Instructions Authored Date: [id number] FUNMI AMEZCUA :1945 Age:78 years Sex:Female Visit Date:01/12/2024 Primary Care Physician: Jade Stewart NP Hospital Discharge Instructions We would like to thank you for allowing us to assist you with your healthcare needs. The following includes patient education materials and information regarding your injury/illness. Your Next Steps Discharge Orders Discharge Patient Instructions, Rest today. Resume diet and activities as tolerated. Future Orders XR Sitz Marker Day 1, 01/12/24, Routine, Reason: Sitzmarks, Transport Mode: Ambulatory, Chronic constipation, Exam to be performed outside organization? XR Sitz Marker Day 3, 01/12/24, Routine, Reason: Sitzmarks, Transport Mode: Ambulatory, Chronic constipation, Exam to be performed outside organization? XR Sitz Marker Day 5, 01/12/24, Routine, Reason: Sitzmarks, Transport Mode: Ambulatory, Chronic constipation, Exam to be performed outside organization? Your Summary Your Care Team Admitting Physician - Vitor Jasso MD Attending Physician - Vitor Jasso MD Primary Care Physician - Jade Stewart NP Referring Physician - Vitor Jasso MD Your Diagnosis Chronic constipation Colon polyps Tests Performed/Pending Surgical Pathology [facility]?-- Results Pending -- Education Materials Three small polyps removed today. We'll call with pathology, typically in about two weeks. ? Otherwise normal colonoscopy. ? Bowel prep was excellent. ? Sitzmark capsule taken today. Please go to radiology department to have xrays on the following days: 01/12 01/14 01/16 ? COLONOSCOPY / SIGMOIDOSCOPY ? Following day: Return to full activity, including work. Diet: Eat and drink normally, unless instructed otherwise. ? Treatment for common after affects: Mild abdominal pain, bloating, or excessive gas: Rest, eat lightly and use a heating pad. ? Symptoms to watch for and report to your physician: SEVERE abdominal pain or bloating. ? Fever within 24 hours after procedure. ? A large amount of rectal bleeding. (A small amount of blood from the rectum is not serious, especially if hemorrhoids are present.) ? If a polyp has been removed- for the next seven days: Do not take aspirin. If you did NOT stop taking aspirin before your procedure, continue taking it even if you???ve had a polyp removed. ? If bright red rectal bleeding occurs, call your physician. ? If you have had a Colonoscopy: Do not attempt to drive a vehicle or operate power equipment of any kind for at least 24 hours after discharge from the hospital. ? Do not consume alcoholic beverages or other mood-altering drugs on the day of surgery. ? Mild irritation at needle site: Apply warm, moist pack to area for 20 minutes four times a day for 2-3 days. ? Call physician if persistent redness and/or drainage at needle site. ? In the event of any problems after surgery, do not hesitate to contact your doctor, [facility] , or the Emergency Room at [phone]. Diagnosis: Doctor: Follow Up Appointment: Patient/Software Quality Manager Signature Patient Name:FUNMI AMEZCUA Tim I have received this information and my questions have been answered. Patient/Software Quality Manager Name: Patient/Software Quality Manager Signature: Relationship to Patient: Witness Name/Signature: Date: Electronically Signed on: 01/12/2024 16:04 EDTSigned by:NAJMA History and physical note * Vitor Jasso MD: PERFORM Event Display: History and Physical Authored Date: [id number] FUNMI AMEZCUA :1945 Age:78 years Sex:Female Visit Date:01/12/2024 Primary Care Physician: Jade Stewart NP History of Present Illness 78 year old female recently presented for evaluation of constipation. She uses dulcolax up to 5 times a day as well as Miralax, still reports feeling like she has a blockage at the end of her bowel near the rectum. ?? Her last colonoscopy was in January 2019, findings notable for melanosis coli, internal hemorrhoids. ?? She has had worsening symptoms over time, to the point where she does not feel like she would naturally have a bowel movement if she did not take the laxatives and stool softeners. She has had some mild efficacy with small enemas but has not tried them with frequency. ?? She has had a hysterectomy in the past.?? Denies??rectal/hemorrhoidal prolapse, hematochezia, melena, UI/FI.? BMs are small in volume/caliber, also frequent (every hour or two) and never a full evacuation. ?? Associated with mild pain, primarily on the left side. ?? She denies family history of colon polyps, cancer, or other colorectal disease. ?? No significant changes to PMH/PSH since most recent visit. ? Review of Systems A complete 12 point ROS was obtained and negative except for those mentioned in the HPI. ? Physical Exam ?Vitals & Measurements ?HT:??162.56??cm?? WT:??58.7??kg?? BMI:??22.21?? BSA:??1.63?? General: NAD, A+O x4 ?? Pulm: Non-labored breathing pattern ?? Cardio: RRR ?? Abdominal: Soft, NT, ND ? 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 ?Recommend??diagnostic??colonoscopy??under anesthesia with extended prep??with Get[employer] Capsule imaging after. ?Risk, benefits and alternatives to the procedure were discussed with the patient in detail. Risk, including but not limited to, bleeding, infection, perforation, missed lesions, need to reoperate, failure to resolve symptoms and pain were discussed with the patient who understood these risks and requested to proceed as planned.?Answered all questions. Patient understood and agreed to this plan. ?? I have reviewed the EMR, including records from PCP, specialists along with review of imaging/diagnostics, which were discussed with the patient where applicable to current presentation. ?? Scribed remotely??by Nannette Hernandez for Vitor Jasso MD Electronically Signed on 01/12/24 02:53 PM Vitor Jasso MD Patient Care team information Care Team Personnel Name: Jade Stewart NP Position: Physician Member Role: Informed Provider Address: Address: [address] [place] [phone] [place] Care Team Related Persons Name: GEO AMEZCUA Address: Home [address] [place] [phone] [place] Name: DOMINGO MUNROE
--- OUTSIDE RECORDS SUMMARY | 2024-04-12 15:13 | XMS_ITS | Continuity of Care Document ---
Author Organization [facility] Address [address] [place] [address] Care Team Providers Care Stone Dresser Name Role Phone Jade Stewart Primary Care Physician [phone] Encounter [facility] Date(s): 03/07/24 - 03/07/[address] [address] Discharge Disposition: Home Allergies, Adverse Reactions, Alerts Substance Reaction Severity Status codeine Nausea Severe Active HYDROmorphone Nausea Severe Active HYDROcodone Nausea Severe Active traMADol Nausea Severe Active Hayfever Unknown Unknown Active Assessment and Plan Future Appointments Future Scheduled Tests Radiology* MG Mammo Screening [...] wheezing, # 18 g, 3 Refill(s), Pharmacy: [facility] #[id number], 160.02, cm, 08/11/22 18:03:00 EST, Height/Length Dosing, 61.23, kg, 08/11/22 18:03:00 EST, Weight Dosing Start Date: 04/06/23 Status: Ordered amoxicillin-clavulanate 875 mg-125 mg oral tablet 1 tab, Oral, every 12 hr, # 20 tab, 0 Refill(s), Pharmacy: [facility] #[id number], 163, cm, 01/12/24 13:11:00 EDT, Height, 59.7, kg, 03/05/24 15:10:00 EDT, Weight Dosing Start Date: 03/05/24 Stop Date: 03/15/24 Status: Ordered azithromycin 250 mg oral tablet See Instruction, Oral, Daily, take 2 tabs on day 1 and 1 tabs on day 2-5, # 6 tab, 0 Refill(s), Pharmacy: [facility] #[id number], 163, cm, 01/12/24 13:11:00 EDT, Height, 59.7, kg, 03/05/24 15:10:00 EDT, Weight Dosing Start Date: 03/05/24 Status: Ordered benzonatate 200 mg oral capsule 200 mg = 1 cap, Oral, TID, PRN as needed for cough, # 30 cap, 0 Refill(s), Pharmacy: [facility] #[id number], 163, cm, 01/12/24 13:11:00 EDT, Height, 59.7, kg, 03/05/24 15:10:00 EDT, Weight Dosing Start Date: 03/05/24 Stop Date: 03/15/24 Status: Ordered celecoxib 200 mg oral capsule 200 mg = 1 cap, Oral, Daily, # 90 cap, 3 Refill(s), Pharmacy: [facility] #[id number], 160.02, cm, 08/11/22 18:03:00 EST, Height/Length Dosing, 61.23, kg, 08/11/22 18:03:00 EST, Weight Dosing Start Date: 08/29/23 Status: Ordered Co-Q10 100 mg oral capsule 100 mg = 1 cap, Oral, Daily, # 30 cap, 0 Refill(s) Start Date: 03/15/22 Status: Ordered fluticasone 50 mcg/inh nasal spray 1 sprays, !-Nasal, BID, SHAKE LIQUID., # 48 g, 0 Refill(s), Pharmacy: [facility] #[id number], 162.56, cm, 11/08/23 11:40:00 EST, Height, 58.7, [...] EA, 11 Refill(s), Pharmacy: [facility], 160.02, cm, 08/11/22 18:03:00 EST, Height/Length Dosing, 61.23, kg, 08/11/22 18:03:00 EST, Weight Dosing Start Date: 09/17/22 Status: Ordered potassium chloride 10 mEq oral capsule, extended release 20 mEq = 2 cap, Oral, Daily, # 180 cap, 3 Refill(s), [id number], 160.02,cm, 08/11/22 18:03:00 EST, Height/Length Dosing, 61.23, kg, 08/11/22 18:03:00 EST, Weight Dosing Start Date: 03/18/23 Stop Date: 03/12/24 Status: Ordered predniSONE 20 mg oral tablet 20 mg = 1 tab, Oral, BID, # 20 tab, 0 Refill(s), Pharmacy: [facility] #[id number], 163, cm, 01/12/24 13:11:00 EDT, Height, 59.7, kg, 03/05/24 15:10:00 EDT, Weight Dosing Start Date: 03/05/24 Status: Ordered sertraline 50 mg oral tablet 50 mg = 1 tab, Oral, Daily, # 90 tab, 3 Refill(s), Pharmacy: [facility] #[id number], 160.02, cm, 08/11/22 18:03:00 EST, Height/Length Dosing, 61.23, kg, 08/11/22 18:03:00 EST, Weight Dosing Start Date: 03/18/23 Status: Ordered Trelegy Ellipta 200 mcg-62.5 mcg-25 mcg/inh inhalation powder 1 puffs, Inhale, Daily, for 360 days, # 3 EA, 6 Refill(s), [facility] #[id number], 160.02, cm, 08/11/22 18:03:00 EST, Height/Length Dosing, 61.23, kg, 08/11/22 18:03:00 EST, Weight Dosing Start Date: 02/08/23 Status: Ordered triamterene-hydrochlorothiazide 37.5 mg-25 mg oral tablet 2 tab, Oral, Daily, # 90 tab, 0 Refill(s), Pharmacy: [facility] #[id number], 163, cm, 01/11/2413:11:00 EDT, Height, 58.8, kg, [...] Physician Member Role: Informed Provider Address: Address: [address] [place] [phone] Care Team Related Persons Name: SEVEN GEO F Address: Home [address] [place] [address], [place] [phone] [place] Name: DOMINGO MUNROE Address: Home
--- OUTSIDE RECORDS SUMMARY | 2024-04-12 15:13 | XMS_ITS | Continuity of Care Document ---
Author Organization [facility] Address [address] [place] [address] Care Team Providers Care Rib Cutter Name Role Phone Jade Stewart Primary Care Physician [phone] Encounter [facility] Date(s): 01/17/24 - 01/17/[address] [address] Encounter Diagnosis Chronic constipation(Discharge Diagnosis) - 01/17/24 Discharge Disposition: Home or Self Care Attending Physician: Vitor Jasso MD Admitting Physician: Vitor Jasso MD Referring Physician: Vitor Jasso MD Allergies, Adverse Reactions, Alerts Substance Reaction Severity Status codeine Nausea Severe Active HYDROmorphone Nausea Severe Active HYDROcodone Nausea Severe Active traMADol Nausea Severe Active Hayfever Unknown Unknown Active Immunizations Given and Recorded Vaccine Date Status [...] wheezing, # 18 g, 3 Refill(s), Pharmacy: [facility] #[id number], 160.02, cm, 08/11/22 18:03:00 EST, Height/Length Dosing, 61.23, kg, 08/11/22 18:03:00 EST, Weight Dosing Start Date: 04/06/23 Status: Ordered celecoxib 200 mg oral capsule 200 mg = 1 cap, Oral, Daily, # 90 cap, 3 Refill(s), Pharmacy: [facility] #[id number], 160.02, cm, 08/11/22 18:03:00 EST, Height/Length Dosing, 61.23, kg, 08/11/22 18:03:00 EST, Weight Dosing Start Date: 08/29/23 Status: Ordered Co-Q10 100 mg oral capsule 100 mg = 1 cap, Oral, Daily, # 30 cap, 0 Refill(s) Start Date: 03/15/22 Status: Ordered doxycycline hyclate 100 mg oral capsule 100 mg = 1 cap, Oral, BID, # 28 cap, 0 Refill(s), Pharmacy: [facility] #[id number], 160.02, cm, 08/11/22 18:03:00 EST, Height/Length Dosing, 58.9, kg, 10/03/23 10:45:00 EST, Weight Dosing Start Date: 10/03/23 Stop Date: 10/17/23 Status: Ordered fluticasone 50 mcg/inh nasal spray 1 sprays, !-Nasal, BID, SHAKE LIQUID., # 48 g, 0 Refill(s), Pharmacy: [facility] #[id number], 162.56, cm, 11/08/23 11:40:00 EST, Height, 58.7, [...] # 1 EA, 11 Refill(s), Pharmacy: [facility], 160.02, cm, 08/11/22 18:03:00 EST, Height/Length Dosing, 61.23, kg, 08/11/22 18:03:00 EST, Weight Dosing Start Date: 09/17/22 Status: Ordered potassium chloride 10 mEq oral capsule, extended release 20 mEq = 2 cap, Oral, Daily, # 180 cap, 3 Refill(s), Pharmacy: [facility] #[id number], 160.02,cm, 08/11/22 18:03:00 EST, Height/Length Dosing, 61.23, kg, 08/11/22 18:03:00 EST, Weight Dosing Start Date: 03/18/23 Stop Date: 03/12/24 Status: Ordered predniSONE 20 mg oral tablet 20 mg = 1 tab, Oral, BID, # 10 tab, 0 Refill(s), Pharmacy: [facility] #[id number], 160.02, cm,08/11/22 18:03:00 EST, Height/Length Dosing, 58.9, kg, 10/03/23 10:45:00 EST, Weight Dosing Start Date: 10/03/23 Stop Date: 10/08/23 Status: Ordered sertraline 50 mg oral tablet 50 mg = 1 tab, Oral, Daily, # 90 tab, 3 Refill(s), Pharmacy: [facility] #[id number], 160.02, cm, 08/11/22 18:03:00 EST, Height/Length Dosing, 61.23, kg, 08/11/22 18:03:00 EST, Weight Dosing Start Date: 03/18/23 Status: Ordered Trelegy Ellipta 200 mcg-62.5 mcg-25 mcg/inh inhalation powder 1 puffs, Inhale, Daily, for 360 days, # 3 EA, 6 Refill(s), Pharmacy: [facility] #[id number], 160.02, cm, 08/11/22 18:03:00 EST, Height/Length Dosing, 61.23, kg, 08/11/22 18:03:00 EST, Weight Dosing Start Date: 02/08/23 Status: Ordered triamterene-hydrochlorothiazide 37.5 mg-25 mg oral tablet 2 tab, Oral, Daily, # 90 tab, 3 Refill(s), Pharmacy: [facility] #[id number], 160.02, cm, 08/11/22 18:03:00 EST, Height/Length Dosing, [...] Physician Member Role: Informed Provider Address: Address: [address] [place] [phone] [place] Care Team Related Persons Name: GEO AMEZCUA Address: [address] [phone] [place] Name: DOMINGO MUNROE
--- OUTSIDE RECORDS SUMMARY | 2024-04-12 15:13 | XMS_ITS | Continuity of Care Document ---
Author Organization [facility] Address [address] [place] [address] Care Team Providers Care First Breaker Feeder Name Role Phone Jade Stewart Primary Care Physician [phone] Encounter [facility] Date(s): 01/13/24 - 01/13/[address] [address] Discharge Disposition: Home Allergies, Adverse Reactions, Alerts [...] wheezing, # 18 g, 3 Refill(s), Pharmacy: [facility] #[id number], 160.02, cm, 08/11/22 18:03:00 EST, Height/Length Dosing, 61.23, kg, 08/11/22 18:03:00 EST, Weight Dosing Start Date: 04/06/23 Status: Ordered celecoxib 200 mg oral capsule 200 mg = 1 cap, Oral, Daily, # 90 cap, 3 Refill(s), Pharmacy: [facility] #[id number], 160.02, cm, 08/11/22 18:03:00 EST, Height/Length Dosing, 61.23, kg, 08/11/22 18:03:00 EST, Weight Dosing Start Date: 08/29/23 Status: Ordered Co-Q10 100 mg oral capsule 100 mg = 1 cap, Oral, Daily, # 30 cap, 0 Refill(s) Start Date: 03/15/22 Status: Ordered doxycycline hyclate 100 mg oral capsule 100 mg = 1 cap, Oral, BID, # 28 cap, 0 Refill(s), Pharmacy: [facility] #[id number], 160.02, cm, 08/11/22 18:03:00 EST, Height/Length Dosing, 58.9, kg, 10/03/23 10:45:00 EST, Weight Dosing Start Date: 10/03/23 Stop Date: 10/17/23 Status: Ordered fluticasone 50 mcg/inh nasal spray 1 sprays, !-Nasal, BID, SHAKE LIQUID., # 48 g, 0 Refill(s), Pharmacy: [facility] #[id number], 162.56, cm, 11/08/23 11:40:00 EST, Height, 58.7, [...] days, # 1 EA, 11 Refill(s), Pharmacy: [facility], 160.02, cm, 08/11/22 18:03:00 EST, Height/Length Dosing, 61.23, kg, 08/11/22 18:03:00 EST, Weight Dosing Start Date: 09/17/22 Status: Ordered potassium chloride 10 mEq oral capsule, extended release 20 mEq = 2 cap, Oral, Daily, # 180 cap, 3 Refill(s), Pharmacy: [facility] #[id number], 160.02,cm, 08/11/22 18:03:00 EST, Height/Length Dosing, 61.23, kg, 08/11/22 18:03:00 EST, Weight Dosing Start Date: 03/18/23 Stop Date: 03/12/24 Status: Ordered predniSONE 20 mg oral tablet 20 mg = 1 tab, Oral, BID, # 10 tab, 0 Refill(s), Pharmacy: [facility] #[id number], 160.02, cm,08/11/22 18:03:00 EST, Height/Length Dosing, 58.9, kg, 10/03/23 10:45:00 EST, Weight Dosing Start Date: 10/03/23 Stop Date: 10/08/23 Status: Ordered sertraline 50 mg oral tablet 50 mg = 1 tab, Oral, Daily, # 90 tab, 3 Refill(s), Pharmacy: [facility] #[id number], 160.02, cm, 08/11/22 18:03:00 EST, Height/Length Dosing, 61.23, kg, 08/11/22 18:03:00 EST, Weight Dosing Start Date: 03/18/23 Status: Ordered Trelegy Ellipta 200 mcg-62.5 mcg-25 mcg/inh inhalation powder 1 puffs, Inhale, Daily, for 360 days, # 3 EA, 6 Refill(s), Pharmacy: [facility] #[id number], 160.02, cm, 08/11/22 18:03:00 EST, Height/Length Dosing, 61.23, kg, 08/11/22 18:03:00 EST, Weight Dosing Start Date: 02/08/23 Status: Ordered triamterene-hydrochlorothiazide 37.5 mg-25 mg oral tablet 2 tab, Oral, Daily, # 90 tab, 3 Refill(s), Pharmacy: [facility] #[id number], 160.02, cm, 08/11/22 18:03:00 EST, Height/Length Dosing, [...] Physician Member Role: Informed Provider Address: Address: [address] [place] [phone] [place] Care Team Related Persons Name: GEO AMEZCUA Address: Home [address] [place] [phone] [place] Name: DOMINGO MUNROE
--- OUTSIDE RECORDS SUMMARY | 2024-04-12 15:13 | XMS_ITS | Continuity of Care Document ---
Author Organization 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 Allergies, Adverse Reactions, Alerts Substance Reaction Severity Status codeine Nausea Severe Active HYDROmorphone Nausea Severe Active HYDROcodone Nausea Severe Active traMADol Nausea Severe Active Hayfever Unknown Unknown Active Assessment and Plan Future Appointments Immunizations Given and Recorded Vaccine Date Status [...] 1Result Comment: pharmacy 2Result Comment: pharmacy Medications !-Flonase 50 mcg/inh nasal spray 50 mcg 1 sprays, Nasal, BID, # 16 g, 3 Refill(s), Pharmacy: [facility] #[id number], 160.02, cm, 08/11/22 18:03:00 EST, Height/Length Dosing, 61.23, kg, 08/11/22 18:03:00 EST, Weight Dosing Start Date: 06/06/23 Stop Date: 05/31/24 Status: Ordered albuterol 90 mcg/inh aerosol inhaler 180 mcg 2 puffs, Inhale, every 4 hr, PRN as needed for wheezing, # 18 g, 3 Refill(s), Pharmacy: [facility] #[id number], 160.02, cm, 08/11/22 18:03:00 EST, Height/Length Dosing, 61.23, kg, 08/11/22 18:03:00 EST, Weight Dosing Start Date: 04/06/23 Status: Ordered celecoxib 200 mg oral capsule 200 mg = 1 cap, Oral, Daily, # 90 cap, 3 Refill(s), Pharmacy: [facility] #[id number], 160.02, cm, 08/11/22 18:03:00 EST, Height/Length Dosing, 61.23, kg, 08/11/22 18:03:00 EST, Weight Dosing Start Date: 08/29/23 Status: Ordered Co-Q10 100 mg oral capsule 100 mg = 1 cap, Oral, Daily, # 30 cap, 0 Refill(s) Start Date: 03/15/22 Status: Ordered magnesium oxide 250 mg oral [...] days, # 1 EA, 11 Refill(s), Pharmacy: [facility], 160.02, cm, 08/11/22 18:03:00 EST, Height/Length Dosing, 61.23, kg, 08/11/22 18:03:00 EST, Weight Dosing Start Date: 09/17/22 Status: Ordered potassium chloride 10 mEq oral capsule, extended release 20 mEq = 2 cap, Oral, Daily, # 180 cap, 3 Refill(s), Pharmacy: [facility] #[id number], 160.02,cm, 08/11/22 18:03:00 EST, Height/Length Dosing, 61.23, kg, 08/11/22 18:03:00 EST, Weight Dosing Start Date: 03/18/23 Stop Date: 03/12/24 Status: Ordered sertraline 50 mg oral tablet 50 mg = 1 tab, Oral, Daily, # 90 tab, 3 Refill(s), Pharmacy: [facility] #[id number], 160.02, cm, 08/11/22 18:03:00 EST, Height/Length Dosing, 61.23, kg, 08/11/22 18:03:00 EST, Weight Dosing Start Date: 03/18/23 Status: Ordered Trelegy Ellipta 200 mcg-62.5 mcg-25 mcg/inh inhalation powder 1 puffs, Inhale, Daily, for 360 days, # 3 EA, 6 Refill(s), Pharmacy: [facility] #[id number], 160.02, cm, 08/11/22 18:03:00 EST, Height/Length Dosing, 61.23, kg, 08/11/22 18:03:00 EST, Weight Dosing Start Date: 02/08/23 Status: Ordered triamterene-hydrochlorothiazide 37.5 mg-25 mg oral tablet 2 tab, Oral, Daily, # 90 tab, 3 Refill(s), Pharmacy: [facility] #[id number], 160.02, cm, 08/11/22 18:03:00 EST, Height/Length Dosing, [...] 2002. 1997 Results Laboratory List Name Date CBC w/ Diff 09/21/23 Comprehensive Metabolic Panel (CMP) Hemoglobin A1c 09/21/23 T3, Total [facility] 09/21/23 TSH w/ Rflx to Free T4 09/21/23 Automated Diff 09/21/23 Most recent to oldest [Reference Range]: 1 WBC [5.0-10.0 x10^3/mcL] 5.2 x10^3/mcL (09/21/23 8:41 AM) RBC [4.1-5.3 x10^6/mcL] 4.4 x10^6/mcL (09/21/23 8:41 AM) Neutro Auto [40.0-75.0 %] 46.9 % (09/21/23 8:41 AM) Lymph Auto [20.0-50.0 %] 43.2 % (09/21/23 8:41 AM) Schleicher Auto [2.0-15.0 %] 7.8 % (09/21/23 8:41 AM) Basophil Auto [0.0-1.0 %] 0.6 % (09/21/23 8:41 AM) BUN [7-18 mg/dL] 21 mg/dL *HI* (09/21/23 8:41 AM) Glucose Level [74-106 mg/dL] 103 mg/dL (09/21/23 8:41 AM) Potassium Level [3.5-5.1 mmol/L] 3.7 mmo l/L (09/21/23 8:41 AM) MCV [80.0-96.0 fL] 88.7 fL (09/21/23 8:41 AM) AST [15-37 unit/L] 26 unit/L (09/21/23 8:41 AM) ALT [14-59 unit/L] 31 unit/L (09/21/23 8:41 AM) MCHC [31.0-35.0 g/dL] 35.0 g/dL (09/21/23 8:41 AM) Sodium Level [136-145 mmol/L] 136 mmol/L (09/21/23 8:41 AM) Hct [37.0-47.0 %] 39.4 % (09/21/23 8:41 AM) Calcium Level [8.5-10.1 mg/dL] 9.8 mg/dL (09/21/23 8:41 AM) Albumin Level [3.4-5.0 g/dL] 3.7 g/dL (09/21/23 8:41 AM) Protein Total [6.4-8.2 g/dL] 7.3 g/dL (09/21/23 8:41 AM) MCH [26.0-32.0 pg] 31.1 pg (09/21/23 8:41 AM) Neutro Absolute 2.4 x10^3/mcL *NA* (09/21/23 8:41 AM) Bilirubin Total [0.2-1.0 mg/dL] 0.7 mg/d L (09/21/23 8:41 AM) Hgb [12.0-16.0 g/dL] 13.8 g/dL (09/21/23 8:41 AM) Alk Phos [46-146 unit/L] 76 unit/L (09/21/23 8:41 AM) Platelets [130-450 x10^3/mcL] 263 x10^3/ mcL (09/21/23 8:41 AM) CO2 [21-32 mmol/L] 29 mmol/L (09/21/23 8:41 AM) TSH [0.358-3.740 mcIntlUnit/mL] 1.219 mc IntlUnit/mL (09/21/23 8:41 AM) eGFR Non-AA [>=60] 70 (09/21/23 8:41 AM) eGFR AA [>=60] 70 (09/21/23 8:41 AM) Hemoglobin A1c [4.0-6.0 %] 5.8 % (09/21/23 8:41 AM) Chloride Level [98-107 mmol/L] 98 mmol/L (09/21/23 8:41 AM) RDW-CV [11.5-14.5 %] 14.1 % (09/21/23 8:41 AM) Imm Gran Auto [0.0-0.9 %] 0.2 % (09/21/23 8:41 AM) Creatinine Level [0.55-1.02 mg/dL] 0.85 mg/dL (09/21/23 8:41 AM) T3, Total [facility] [97-169 ng/dL] 111 ng/dL 1 *NA* (09/21/23 8:41 AM) Eos, Auto [1.0-6.0 %] 1.3 % (09/21/23 8:41 AM) 1Result Comment: Test performed [place] [address] Social History Social History Type Response Smoking Status Smoking tobacco use: Former tobacco user;Never; Number used per day: 1/2 ppd; Number of years: 25; 1 entered on: 03/18/23 Sex Female 1quit 1971 Patient Care team information Care Team Personnel Name: Jade Stewart NP Position: Physician Member Role: Informed Provider Address: Address: [address] [place] [phone] [place] Care Team Related Persons Name: GOE AMEZCUA Address: Home [address] [place] [phone] [place] Name: DOMINGO MUNROE
--- OUTSIDE RECORDS SUMMARY | 2024-04-12 15:14 | XMS_ITS | Encounter Summary ---
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 [address] [place] [address] Jerome Fontanez MD [address] [facility] [place] [address] Disorder of sacrum Discharge Disposition: Home Social History Tobacco Use Types Packs/Day Years Used Date Smoking Tobacco: Former Cigarettes 0.5 25 1 945 - 1970 Smokeless Tobacco: Never Alcohol Use Standard Drinks/Week Comments Yes 0 (1 standard drink = 0.6 oz pur e alcohol) SELDOM Sex and Gender Information Value Date Recorded Sex Assigned at Not on file Gender Identity Female 09/25/2020 7:37 PM EST Sexual Orientation Not on file documented as of this encounter Last Filed Vital Signs Vital Sign Reading Time Taken Comments Blood Pressure 172/103 05/12/2021 3:37 PM EDT Pulse 64 05/12/2021 3:37 PM EDT Temperature 36 ??C (96.8 ??F) 05/12/2021 2:47 PM EDT Respiratory Rate 15 05/12/2021 3:37 PM EDT Oxygen Saturation 99% 05/12/2021 3:37 PM EDT Inhaled Oxygen Concentration - - Weight 61.2 kg (135 lb) 05/12/2021 10:43 AM EDT Height 162.6 cm (5' 4) 05/12/2021 10:43 AM EDT Body Mass Index 23.17 05/12/2021 10:43 AM EDT documented in this encounter Discharge Instructions * Patient Instructions* Janee Stewart PA - 05/12/2021 12:38 PM EDT PAIN: ??? Keep ice to the surgical site as much as possible for pain relief and to minimize swelling for 48 hours, then as needed intermitently. ??? You were given a prescription for pain medication prior to surgery: ??? Take this medication as directed. ??? As pain begins to resolve, taper down your usage. ??? You may take Tylenol or Ibuprofen if tolerated, as needed for pain in addition to your prescribed medications, as directed by your provider. ??? If pain persists or worsens over the next few days you should contact the office. FOLLOW UP APPOINTMENTS: ??? You will have a post-operative follow up appointment with your surgeon/physician???s bilingual sales assistant scheduled. If you have any questions, please call . MEDICATIONS: ??? Take your medicine at the time your doctor ordered. ??? Keep a list of your medicines, vitamins, and herbal supplement you take. Keep this list with you at all times. Show it to your caregiver at every visit. Keep the list up-to-date. ??? Ask your caregiver or pharmacist to write an explanation of each medicine you are taking. This should include: why you are taking it, possible side effects, best time of day to take it, what foods to take the medication with or foods to avoid, and when to stop taking it. ??? Only take lfxt-hvv-xutvxva or prescription medicine for pain, discomfort or fever as directed by your caregiver. ??? Consult your doctor or pharmacist with any questions. NEW MEDICATIONS AT DISCHARGE: []None, []Given prescriptions in office preoperatively OR: Medication Dose/Route/ Frequency Prescription given? Reason for medication Medscape monograph discussed []Yes []No []Yes []No []Yes []No []Yes []No DIET: ??? Resume your normal diet as tolerated. ??? Be sure to drink plenty of fluids, particularly water. ??? Eat whole grain cereals, fruits and fruit juices to combat constipation sometimes cause by painmedication. ??? You may take Colace 100 mg, twice a day, as a stool softener if tolerated. ??? Contact your provider if constipation develops. ACTIVITY: ??? No impact activities until cleared by the provider to do so. ??? You may walk to the bathroom and kitchen as needed. ??? Sexual activity can be resumed a few weeks after surgery. POST ANESTHESIA/SEDATION: ??? You have received medication for sedation and comfort during your procedure. Because these havenot completely left your system, please observe the following precautions: o Plan to be mostly sedentary for the rest of the day. o DO NOT drive or operate machinery until advised by your surgeon/PA. o Avoid alcohol for the next 24 hours or while using narcotic pain medication. o Do not make any important personal or business decisions today. BANDAGE/SHOWERING: ??? After 3 days, you may shower: o Do not use soap on incision. o Do not rub or scrub incision. o Do not soak in a bath or hot tub or immerse incision. o Gently pat the surgical site dry. ??? Do not remove papertape (this will be done in office at first post-op checkup). CALL YOUR SURGEON IF: ??? You develop worsening pain. ??? You notice any unusual redness, swelling, or drainage from the incisions. ??? There is persistent bleeding from an incision. ??? You notice a foul smell coming from the wound. ??? You develop an oral temperature above 101 degrees F (you may have a milder temperature increasefor three to five days after surgery). ??? You are unable to drink/keep fluids down due to nausea. ??? Any other worrisome condition, questions or concerns. SMOKING CESSATION INFORMATION: ??? [place] QUITLINE: ??? [place] QUITLINE: ??? [email or web address] If you smoke, it is recommended that you stop now! MAKE SURE YOU: ??? Understand these instructions. ??? Will seek medical care if you are feeling poor, or get worse. ??? Will call the surgeon???s office with any questions or concerns at : [phone] ??? Nursing information only: ??? Original document to medical records ??? Copy given to patient at discharge ??? Belongings/Valuables returned to patient ??? All questions answered ??? IV and hospital equipment removed from patient as appropriate The above information has been presented or demonstrated. I/we have had the opportunity to ask questions. I/we fully understand the instructions given. I/we have received a copy of this form. documented in this encounter Medications at Time of Discharge Medication Sig Dispensed Refills Start Date End Date polyethylene glycoL (Miralax) 17 gram Powder in PacketIndications:con stipation Take 17 g by mouth daily as needed (Bowel health). Indications: constipation acetaminophen-codeine (Tylenol #3) 300-30 mg Tablet Take 1-2 tablets by mouth every 6 hours as needed for Pain. 15 tablet 05/12/2021 Nucala 100 mg/mL Auto-InjectorIndicati ons:next dose due 05/27/21 Inject 100 mg subcutaneously every 30 days. Indications: next dose due 05/27/21 02/26/2021 Breo Ellipta 200-25 mcg/dose Disk with Device Inhale 1 puff into the lungs every morning. 03/20/2021 diazePAM (Valium) 5 mg TabletIndications:Cla ustrophobia,S/P hip arthroscopy,Chronic right hip pain 10 mg by mouth 45 minutes prior to MRI. May take additional 5 mg by mouth at time of MRI. 3 tablet 01/02/2021 Trelegy Ellipta 200-62.5-25 mcg Disk with Device Inhale 1 puff into the lungs daily. 09/20/2020 mepolizumab (Nucala) Recon Soln injection Inject 1 each subcutaneously every 30 days. ondansetron ODT (Zofran-ODT) 4 mg Tablet, Rapid Dissolve Place 1 tablet (4mg) on top of tongue, allow to disolve and swallow Q6H PRN Nausea and voimitting 20 tablet 01/23/2020 cetirizine (ZyrTEC) 10 mg TabletIndications:sea josselyn allergic rhinitis Take 10 mg by mouth daily as needed for Allergies. Indications: seasonal runny nose senna (Senokot) 8.6 mg TabletIndications:con stipation,PT STATES SHE TAKES EIGHT TABS Take 8 tablets by mouth daily. Indications: constipation, PT STATES SHE TAKES EIGHT TABS triamterene-hydroCHLO ROthiazide (Dyazide) 37.5-25 mg Capsule Take 2 capsules by mouth every morning. potassium chloride (K-DUR/KLOR-CON) 10 mEq Tablet Sustained Release Take 10 mEq by mouth daily. 0 04/21/2019 sertraline (ZOLOFT) 50 mg TabletIndications:Dayday es around 2pm Take 1 tablet by mouth every morning. Indications: Takes around 2pm 0 04/10/2019 celecoxib (CELEBREX) 200 mg Capsule Take 200 mg by mouth every morning. 1 05/03/2019 albuterol (PROVENTIL HFA) 90 mcg/actuation HFA Aerosol Inhaler 2 puffs every 4 hours as needed. albuterol (PROVENTIL) 2.5 mg /3 mL (0.083 %) Solution for NebulizationIndicatio ns:every 4 to 6 hours as needed Take 2.5 mg by nebulization. Indications: every 4 to 6 hours as needed fluticasone propionate (FLONASE) 50 mcg/actuation [place], Suspension 2 sprays by Each Nare route nightly. Magnesium Oxide 250 mg magnesium Tablet Take 2 tablets by mouth daily. multivitamin (THERAGRAN) Tablet Take 1 tablet by mouth daily. documented as of this encounter Progress Notes * Jennifer Schuler RN - 05/12/2021 1:28 PM EDT Surgical site marked by Dr Fontanez * Jennifer Schuler RN - 05/12/2021 12:[address] Fontanez declined to antonio surgical side. Site marked by pt. documented in this encounter H&P Notes * Janee Stewart PA - 05/12/2021 12:35 PM EDT Patient Name: Jigna Espinoza Patient Age: 76 y.o. Birthdate: 1945 Admit date: 05/12/2021 Attending Physician: Jerome Fontanez MD The patient's history and physical exam have been reviewed and completed. There has been no interval change from that of the pre-operative history and physical exam done within the last 30 days. documented in this encounter Miscellaneous Notes * Op Note - Jerome Fontanez MD - 05/12/2021 1:54 PM EDT [facility] [address] Patient Name: Jigna Espinoza : [id number] MR#: [id number] Case Date: 05/12/2021 Case Scheduled Time: 1208 Surgeon: Surgeon(s) and Role: * Jerome Fontanez MD - Primary * Janee Stewart PA - Physician Golf Range Attendant Preoperative diagnosis: LEFT SIJD Postoperative diagnosis: LEFT SIJD Actual procedure: Left sacroiliac joint instrumented fusion using computer- assisted stereotactic volumetric image guidance (Minimus Spinealth). Use of the Hingham screw system. Use of bone morphogenic protein and locally harvested bone. Anesthesia: General Estimated Blood Loss: * No values recorded between 05/12/2021 1:54 PM and 05/12/2021 2:39 PM * Specimens removed during surgery: None Drains: * No LDAs found * Surgical Closure: Primary Closure - skin incision is completely closed without any wires, madiha, drains or other devices Disposition: awakened from anesthesia, extubated and taken to the recovery room in a stable condition, having suffered no apparent untoward event. Condition: doing well without problems Complications: None (Please see the Surgical Encounter Summary for any Implant and Specimen details pertinent to this patient.) Findings: Excellent screw placement was confirmed with post implant CT scan. No complications or problems. No csf. No unusual bleeding. No motor discharges. Sponge and needle counts correct. Surgical Indications: Jigna Espinoza is a 76 y.o. 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 Please refer to my office notes for details of presentation, findings on exam,and medical decision making. she has requested that we consider surgical treatment of this condition. Pros and cons, rationale and risks, options and alternatives have been thoroughly reviewed. The patient acknowledges the extensive list of risk of this surgery as explained in no uncertain terms. The patient acknowledges that I cannot provide a guarantee regarding the success of the procedure, the avoidance of complication, or the durability of the result. There has been ample opportunity for the patient to ask and have answered any and all questions, seek any additional information needed tomake an informed decision, or seek additional professional opinion if desired. Understanding all ofthis, she requests that we proceed with operation. Procedure Description: Jigna Espinoza was brought into the operating room and an appropriate general endotracheal anesthetic was established. She was positioned prone on the [place] table and padded appropriately. The back was prepped and draped in usual sterile fashion. We then pause to confirm her identification, site and type of surgery to be performed, available of all necessary equipment and implants, presence of films, administration of antibiotics, and all the requisite preoperative data. Once is all been confirmed we proceeded to localize the left posterior superior iliac spine. We made our incision starting just above and lateral to this point and extending inferolaterally in an oblique direction. Dissection of the subcutaneous tissue was carried out with monopolar electrocautery. We identified the posterior superior iliac spine and exposed it with monopolar electrocautery. We then implanted a percutaneous pin into the iliac crest superior to the PSIS. We mounted the Stealth arc. We obtained an intraoperative CT scan and fed this data into the Minimus Spinealth station. We planned our screw trajectories. We then implanted 2 screws using the following algorithm: First the entry points are identified visually and on Stealth. Using an image guided all tip tap a co pilot hole is created along the course of the screw trajectory. The tap is withdrawn and the hole palpated to ensure nounexpected breach of cortex. Next the Hingham bone harvest device and Is utilized under live image guidance down the co pilot hole. The tap is withdrawn and cleaned of its bone harvest. This is then implanted into the central channel of the Hingham screw. Bone morphogenic protein sponges also utilized in the central channel of the screw. The screw was then implanted under live image guidance. Prior toimplanting that screw the hole is palpated again with with the image guided feeler to ensure no unexpected breach of cortex. This was accomplished at both locations without any difficulty. Post implant CT scan was obtained confirming excellent placement of the screws. We then infiltrated the musculature subcutaneous and subcuticular tissues with 10 cc of 0 half percent Marcaine. We flushed the wound thoroughly with antibiotic solution. We closed the gluteal fascia with 2-0 Vicryl stitches. We closed the subcutaneous tissues with inverted 2-0 Vicryl stitches. The skin edges were approximated with inverted 3-0 Vicryl stitches Dermabond benzoin and paper tape. Patient was then allowed to awaken from anesthetic and transferred to the postanesthesia care unit in stable condition. Infection Bundle used? N/A Janee Stewart PA-C worked under my direction for the duration of the operative session. The bilingual sales assistant adequately prepped the operative site and maintained the best possible exposure of anatomy incident to the procedure. Jerome Fontanez MD 05/12/2021 documented in this encounter Plan of Treatment Not on file documented as of this encounter Procedures Procedure Name Priority Date/Time Associated Diagnosis Comments XR O-ARM NO RAD - OR USE Routine 05/12/2021 2:47 PM EDT MODIFIER MEDTRONIC - RIALTO 05/12/2021 1:29 PM EDT LEFT SIJD MODIFIER MEDTRONIC - NAVIGATION / STEALTH 05/12/2021 1:29 PM EDT LEFT SIJD Arthrodesis Sacroiliac Joint Percutaneous (48741) 05/12/2021 1:29 PM EDT LEFT SIJD IMPLANTABLE DEVICES SCAN 05/12/2021 12:00 AM EDT documented in this encounter Results * XR O-Arm No Rad <1Hr - OR Use (05/12/2021 2:47 PM EDT) Anatomical Region Laterality Modality N/A Radio Fluoroscop y Impressions 05/12/2021 2:56 PM EDT On the first of the cone-beam CTs a metallic structure is been placed in the posterior superior aspect of the iliac bone on the left. On the second of the CT studies additional screws have been placed extending from the lateral aspect of the iliac bone across the sacroiliac joint and into the left aspect of the sacrum. On the radiographs and one of the CT studies, pedicle screws are partially imaged at L4, presumably from old posterior fixation Thank you for letting us participate in the care of this patient. ??If you are a health care provider and have any questions regarding this report, please contact the number below. ??For patients who have questions please contact the health director of health care marketing that requested your imaging first. ? Electronically signed by: Kunal Shepherd MD, [facility] ([phone]), at 05/12/2021 2:56 PM Narrative 05/12/2021 2:56 PM EDT EXAMINATION: XR O-ARM NO RAD - OR USE CLINICAL HISTORY: surgery TECHNIQUE: Series: The submitted images consist of radiographs and two cone-beam CT studies of the lower lumbar spine and upper sacrum Procedure Note Kunal Shepherd MD - 05/12/2021 EXAMINATION: XR O-ARM NO RAD - OR USE CLINICAL HISTORY: surgery TECHNIQUE: Series: The submitted images consist of radiographs and two cone-beam CTstudies of the lower lumbar spine and upper sacrum IMPRESSION On the first of the cone-beam CTs a metallic structure is been placed inthe posterior superior aspect of the iliac bone on the left. On the second ofthe CT studies additional screws have been placed extending from the lateralaspect of the iliac bone across the sacroiliac joint and into the left aspect ofthe sacrum. On the radiographs and one of the CT studies, pedicle screws are partially imaged at L4, presumably from old posterior fixation Thank you for letting us participate in the care of this patient. If youare a health care provider and have any questions regarding this report,please contact the number below. For patients who have questions please contactthe health director of health care marketing that requested your imaging first. Electronically signed by: Kunal Shepherd MD, [facility]([phone]), at 05/12/2021 2:56 PM Jerome Fontanez MD IMG FLUORO ORDERABLE S * SCAN DOC: IMPLANTABLE DEVICES (05/12/2021 12:00 AM EDT) Unknown MEDIA MGR SCAN EXT O RDR/RSLT documented in this encounter Visit Diagnoses Diagnosis Disorder of sacrum Disorders of sacrum documented in this encounter Administered Medications Inactive Administered Medications - up to 3 most recent administrations Medication Order MAR Action Action Date Dose Rate Site lactated ringers infusion 1,000 mL, at 50 mL/hr, Intravenous, CONTINUOUS, Starting on Tue05/12/21 at 1115, Until Tue05/12/21 at 1608, Day of Surgery (Day of Procedure) New Bag 05/12/2021 11:04 AM EDT 1,000 mLs 50 mL/hr documented in this encounter Active and Recently Administered Medications Times are shown in EDT. Scheduled Medication Order 05/10/2021 05/11/2021 05/12/2021 ceFAZolin (Ancef) 2 g in dextrose 5% 100 mL infusion (COMPLETED) 2 g, Intravenous, ONCE, 1 dose, On Tue05/12/21 at 1115, Administer over 30 Minutes, To be administered upon arrival to the OR within one hour prior to incision., Day of Surgery (Day of Procedure), Indication for (Active or Suspected): Prophylaxis 1338 (Given - Provid er: Chay Lott CRNA) Continuous Medication Order 05/10/2021 05/11/2021 05/12/2021 lactated ringers infusion (CANCELED) 1,000 mL, at 50 mL/hr, Intravenous, CONTINUOUS, Starting on Tue05/12/21 at 1115, Until Tue05/12/21 at 1608, Day of Surgery (Day of Procedure) 1104 (New Bag - Prov ider: Jennifer Schuler RN) PRN Medication Order 05/10/2021 05/11/2021 05/12/2021 BUpivacaine (pf) (Marcaine) (5 mg/mL) 0.5% injection (CANCELED) ONCE PRN, Starting on Tue05/12/21 at 1348, Until Tue05/12/21 at 1609, Intra-Operative (Intra-Procedure), Routine 1348 (Given - Provid er: Jerome Fontanez MD) documented in this encounter Care Teams Alligator Shear Operator Relationship Specialty Start Date End Date Ritu Bolaños APRN [address] [place] [id number] PCP - General 05/07/15 02/03/22 documented as of this encounter
--- OUTSIDE RECORDS SUMMARY | 2024-04-12 15:14 | XMS_ITS | Encounter Summary ---
Author Organization [facility] [place] [address] Care Team Providers Care Compounding Pharmacy Technician Name Role Phone Ritu Bolaños APRN Primary Care Provider [phone]- [phone] Reason for Referral * Consultation (Routine) - Closed Specialty Diagnoses / Procedures Referred By Lennox jaramillo Referred To Contact Neurology Diagnoses Sacroiliac joint dysfunction of both sides Roberto Carlos Aguilar MD [address] [place] [address] Neurology, [address] [address] Referral ID Status Reason Start Date Expiration Date V isits Requested Visits Authorized [id number] Closed Consult, Test & Treat 02/05/2021 08/04/2021 1 1 Encounter Details Date Type Department Care Team (Latest Contact Info) Description 02/04/2021 3:45 PM EDT TH Visit (TeleHealth) Sports Medicine at [facility] [address] [place] [address] Roberto Carlos Aguilar MD [address] [place] [address] Gluteal tendinitis of right buttock; Hamstring tendinitis of right thigh; Trochanteric bursitis of right hip; Sacroiliac joint dysfunction of both sides Social History Tobacco Use Types Packs/Day Years [...] on file documented as of this encounter Patient Instructions * Patient Instructions* Roberto Carlos Aguilar MD - 02/04/2021 3:45 PM EDT Platelet Rich Plasma - Patient Information What is platelet-rich plasma therapy? Platelet rich plasma (PRP) is a treatment used to promote healing of injured joints, muscles, ligaments and tendons. It is mostly used in athletes and active individuals who wish to return to their sport or activity quickly. It is considered in healthy individuals who have failed to respond to first line conservative treatments of rest, medication and physical therapy. What growth and healing factors are present in PRP? The different types of growth and healing factors include: ??? Platelet derived growth factor ??? Fibroblast growth factor ??? Vascular endothelial growth factor ??? Interleukin 8 ??? Transforming growth factor beta ??? Insulin like growth factor 1, 2 ??? Epidermal growth factor What conditions might benefit from platelet-rich plasma therapy? Some of the conditions that may benefit from PRP injections include: ??? Chronic tendon injuries such as: ??? Achilles tendonitis ??? Tennis elbow ??? Inflammation of the patellar tendon ??? Ligament and muscle injuries such as: ??? Pulled hamstring muscles ??? Knee sprains ??? Moderate osteoarthritis of the: ??? Shoulder ??? Hip ??? Knee How is platelet rich plasma obtained? Platelet-rich plasma is produced by: ??? Drawing blood from the patient???s own body ??? the liquid portion of the blood (plasma) from the solid portion (red blood cells, white blood cells, platelets, etc.) ??? Addition of the concentrated platelets to the plasma How is the PRP injection administered? The PRP injection can be performed as an outpatient procedure. A local anesthetic is applied at thesite and the PRP is injected into the damaged tissue. Occasionally, your doctor may use ultrasound guidance to administer the injection accurately. The number of injections based on the severity of your condition and response to therapy. What happens after PRP injections are administered? The injection of PRP is an outpatient procedure, so you will be able to leave home immediately after. Following the treatment, you may experience irritation and mild pain for a few days. You will be prescribed pain medication to keep you comfortable during the healing process. As PRP therapy uses the patient???s own blood, the treatment is associated with minimal risk factors or contraindications. +++++VERY IMPORTANT+++++ Please stop all non-steroidal medications at least one week prior to your PRP procedure (ibuprofen,aspirin, Aleve, meloxicam, Celebrex, Voltaren, Naproxen, etc...). You may take acetaminophen, gabapentin, tramadol right up until your procedure if needed for pain. documented in this encounter Progress Notes * Saniya Patterson CMA - 02/04/2021 3:45 PM EDTSummary: EPF: RIGHT Hip Pain Images from the original note were not included. Sports Medicine Outpatient Follow Up Note Patient consented to telehealth visit in lieu of office visit, due to public health emergency. Patient was informed prior to this telehealth visit, that it will be conducted similarly to an office visit, and that it may be billed similarly to an in-clinic office visit. Chief Complaint: RIGHT Hip Pain History of Present Illness or Injury: Jigna Espinoza is a 75 y.o. year old female, returns to the clinic for follow up after having an MRI. She reports that her right hip continues to bother her significantly with daily life. Sitting is painful, walking and standing are painful in the posterior and lateral hip. She has had no interval falls or trauma. She did have an MRI since our last telemedicine visit which is copied below demonstrating atrophy of the gluteus minimus and gluteus medius along with tenosynovitis of the proximal hamstring tendons. Fluid in the trochanteric bursa is also noted. HPI from 12/11/2020 THV: I performed ultrasound-guided trochanteric bursal cortisone injection on this patient on 10/02/2020. She reports that she had complete resolution of pain with ability to walk without limping or pain for 3 days. After 3 days pain gradually returned to previous levels over the next 2 weeks and is nowas bad or worse than ever. She has pain with weightbearing and cannot exercise without increasing pa in significantly. She has difficulty getting comfortable at night. Rising from a chair is uncomfortable with pain localizing to the lateral right hip without radiation of pain numbness or tingling into the groin, down the leg or into the foot. She has no numbness or tingling. She had no side effects from her injection. She is frustrated by her lack of progress. Relevant Imaging: Physical Examination: Physical exam deferred due to telehealth. PE from 10/02/2020 visit: Age-appropriate woman no acute distress. No tenderness palpation or fist percussion along the spine or SI joints. Gluteus medius mildly tender right, nontender left. Greater trochanter moderately tender right, slightly tender left. Iliotibial band moderately tender right, nontender left. Gait is somewhat antalgic with right-sided Trendelenburg gait. She has great difficulty standing on her rightfoot and keeping her balance. She does a much better job standing on her left foot and keeping her balance. 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 Temporary benefit from trochanteric bursal cortisone injection in September as described above. Plan: We have discussed at length platelet rich plasma injection therapy as a therapeutic option for which may give her benefit. I told her this is a treatment that is not covered by most commercial insurance carriers and is controversial as to effectiveness. PRP carries an [id number] cost $325 in this office. I do not have a lot of other good options for her. Repeat cortisone is likely to only giveher temporary relief and over time we can her already somewhat atrophied tendons. I recommend that she continue with her physical therapy and home exercises as tolerated and able. Continue with nonprovocative, minimally provocative activities as able and tolerated. Continue with Celebrex and as needed Tylenol. Follow-up as scheduled with Dr. Lara Follow-up with Gwendolyn Onrelas and Dr. Cox as scheduled I have asked her to contact me if she would like to proceed with PRP injection for the above. I have included information about platelet rich plasma in her after visit summary. documented in this encounter Miscellaneous Notes * Addendum Note - Suzie Corley LPN - 02/04/2021 3:45 PM EDTAddended by: SUZIE CORLEY on: 02/05/2021 11:19 AM Modules accepted: Orders documented in this encounter Plan of Treatment Scheduled Referrals Name Type Priority Associated Diagnoses Orde r Schedule Referral to Neurosurgery Outpatient Referral Routine Sacroiliac joint dysfunction of both sides Ordered: 02/05/2021 documented as of this encounter Visit Diagnoses Diagnosis Gluteal tendinitis of right buttock Enthesopathy of hip region Hamstring tendinitis of right thigh Trochanteric bursitis of right hip Enthesopathy of hip region Sacroiliac joint dysfunction of both sides Disorders of sacrum documented in this encounter Care Teams Compounding Pharmacy Technician Relationship Specialty Start Date End Date Ritu Bolaños APRN [address] [place] [address] PCP - General 05/07/15 02/03/22 documented as of this encounter
--- OUTSIDE RECORDS SUMMARY | 2024-04-12 15:14 | XMS_ITS | Continuity of Care Document ---
Author Organization [facility] Address [address] [place] [address] Care Team Providers Care Marine Mechanic Name Role Phone Jade Stewart Primary Care Physician Encounter [facility] Date(s): 03/05/24 - 03/05/24 [facility] [address] [place] [address] Discharge Disposition: Home Allergies, Adverse Reactions, Alerts Substance Reaction Severity Status codeine Nausea Severe Active HYDROmorphone Nausea Severe Active HYDROcodone Nausea Severe Active traMADol Nausea Severe Active Hayfever Unknown Unknown Active Assessment and Plan Future Appointments Future Scheduled Tests Laboratory* CBC w/ Diff 03/05/24 * Comprehensive Metabolic Panel 03/05/24 * Legionella Ag, Ur [place] 03/05/24 * Strep pneu IgG Abs, 23 Serotypes, S [place] 03/05/24 * C-Reactive Protein 03/05/24 * D-Dimer 03/05/24 * Procalcitonin 03/05/24 Radiology* MG Mammo Screening Bilateral w/ Waldemar 02/28/24 * CT Chest w/ + w/o Contrast 03/05/24 Immunizations Given and Recorded Vaccine Date Status [...] wheezing, # 18 g, 3 Refill(s), Pharmacy: [facility] #[id number], 160.02, cm, 08/11/22 18:03:00 EST, Height/Length Dosing, 61.23, kg, 08/11/22 18:03:00 EST, Weight Dosing Start Date: 04/06/23 Status: Ordered amoxicillin-clavulanate 875 mg-125 mg oral tablet 1 tab, Oral, every 12 hr, # 20 tab, 0 Refill(s), Pharmacy: [facility] #[id number], 163, cm, 01/12/24 13:11:00 EDT, Height, 59.7, kg, 03/05/24 15:10:00 EDT, Weight Dosing Start Date: 03/05/24 Stop Date: 03/15/24 Status: Ordered azithromycin 250 mg oral tablet See Instruction, Oral, Daily, take 2 tabs on day 1 and 1 tabs on day 2-5, # 6 tab, 0 Refill(s), Pharmacy: [facility] #[id number], 163, cm, 01/12/24 13:11:00 EDT, Height, 59.7, kg, 03/05/24 15:10:00 EDT, Weight Dosing Start Date: 03/05/24 Status: Ordered benzonatate 200 mg oral capsule 200 mg = 1 cap, Oral, TID, PRN as needed for cough, # 30 cap, 0 Refill(s), Pharmacy: [facility] #[id number], 163, cm, 01/12/24 13:11:00 EDT, Height, 59.7, kg, 03/05/24 15:10:00 EDT, Weight Dosing Start Date: 03/05/24 Stop Date: 03/15/24 Status: Ordered celecoxib 200 mg oral capsule 200 mg = 1 cap, Oral, Daily, # 90 cap, 3 Refill(s), Pharmacy: [facility] #[id number], 160.02, cm, 08/11/22 18:03:00 EST, Height/Length Dosing, 61.23, kg, 08/11/22 18:03:00 EST, Weight Dosing Start Date: 08/29/23 Status: Ordered Co-Q10 100 mg oral capsule 100 mg = 1 cap, Oral, Daily, # 30 cap, 0 Refill(s) Start Date: 03/15/22 Status: Ordered fluticasone 50 mcg/inh nasal spray 1 sprays, !-Nasal, BID, SHAKE LIQUID., # 48 g, 0 Refill(s), Pharmacy: [facility] #[id number], 162.56, cm, 11/08/23 11:40:00 EST, Height, 58.7, [...] days, # 1 EA, 11 Refill(s), Pharmacy: [facility], 160.02, cm, 08/11/22 18:03:00 EST, Height/Length Dosing, 61.23, kg, 08/11/22 18:03:00 EST, Weight Dosing Start Date: 09/17/22 Status: Ordered potassium chloride 10 mEq oral capsule, extended release 20 mEq = 2 cap, Oral, Daily, # 180 cap, 3 Refill(s), Pharmacy: [facility] #[id number], 160.02,cm, 08/11/22 18:03:00 EST, Height/Length Dosing, 61.23, kg, 08/11/22 18:03:00 EST, Weight Dosing Start Date: 03/18/23 Stop Date: 03/12/24 Status: Ordered predniSONE 20 mg oral tablet 20 mg = 1 tab, Oral, BID, # 20 tab, 0 Refill(s), Pharmacy: [facility] #[id number], 163, cm, 01/12/24 13:11:00 EDT, Height, 59.7, kg, 03/05/24 15:10:00 EDT, Weight Dosing Start Date: 03/05/24 Status: Ordered sertraline 50 mg oral tablet 50 mg = 1 tab, Oral, Daily, # 90 tab, 3 Refill(s), Pharmacy: [facility] #[id number], 160.02, cm, 08/11/22 18:03:00 EST, Height/Length Dosing, 61.23, kg, 08/11/22 18:03:00 EST, Weight Dosing Start Date: 03/18/23 Status: Ordered Trelegy Ellipta 200 mcg-62.5 mcg-25 mcg/inh inhalation powder 1 puffs, Inhale, Daily, for 360 days, # 3 EA, 6 Refill(s), Pharmacy: [facility] #[id number], 160.02, cm, 08/11/22 18:03:00 EST, Height/Length Dosing, 61.23, kg, 08/11/22 18:03:00 EST, Weight Dosing Start Date: 02/08/23 Status: Ordered triamterene-hydrochlorothiazide 37.5 mg-25 mg oral tablet 2 tab, Oral, Daily, # 90 tab, 0 Refill(s), Pharmacy: [facility] #[id number], 163, cm, 01/11/2413:11:00 EDT, Height, 58.8, kg, [...] Physician Member Role: Informed Provider Address: Address: [address] [place] [phone] [place] Care Team Related Persons Name: GEO AMEZCUA Address: [address] [id number] [place] Name: DOMINGO MUNROE
--- OUTSIDE RECORDS SUMMARY | 2024-04-12 15:14 | XMS_ITS | Encounter Summary ---
Author Organization [facility] [place] [address] Care Team Providers Care Premix Operator Concentrate Name Role Phone Ritu Bolaños APRN Primary Care Provider [phone]- [phone] Reason for Visit * - Closed Specialty Diagnoses / Procedures Referred By Lennox jaramillo Referred To Contact Procedures Film Library- Storage Only MR Hip Ritu Bolaños APRN [address] [place] [address] Referral ID Status Reason Start Date Expiration Date Visits Re quested Visits Authorized [id number] Closed 01/30/2021 01/30/2022 1 1 Encounter Details Date Type Department Care Team ([facility] st Contact Info) Description 01/09/2021 Ancillary Procedure [place] [address] Ritu Bolaños APRN [address] [place] [address] Social History Tobacco Use Types Packs/Day Years [...] on file documented as of this encounter Plan of Treatment Not on file documented as of this encounter Procedures Procedure Name Priority Date/Time Associated Diagnosis Comments FILM LIBRARY STORAGE ONLY MR HIP Routine 01/09/2021 12:00 AM EDT documented in this encounter Results * Film Library- Storage Only MR Hip (01/09/2021 12:00 AM EDT) Narrative [facility] - 01/30/2021 1:17 PM EDT This exam is auto-finalizing. It's purpose is for storage only. Ritu Bolaños APRN IMG FILM LIBRARY O RDERABLES Performing Organization Address City/State/[facility] Co de Phone Number [place], [place] documented in this encounter Visit Diagnoses Not on filedocumented in this encounter Care Teams Premix Operator Concentrate Relationship Specialty Start Date End Date Ritu Bolaños APRN [address] [place] [phone] PCP - General 05/07/15 02/03/22 documented as of this encounter
--- OUTSIDE RECORDS SUMMARY | 2024-04-12 15:14 | XMS_ITS | Continuity of Care Document ---
Author Organization [facility] Address [address] [place] [address] Care Team Providers Care Assistant Facility Manager Name Role Phone Jade Stewart Primary Care Physician Encounter [facility] Date(s): 10/03/23 - 10/03/[address] [address] Encounter Diagnosis Bronchitis, not specified as acute or chronic(Discharge Diagnosis) - 10/03/23 Discharge Disposition: Home or Self Care Attending Physician: Ismael Barksdale NP Admitting Physician: Ismael Barksdale NP Referring Physician: Ismael Barksdale ADMINISTRATIVE ASSOCIATE Allergies, Adverse Reactions, Alerts Substance Reaction Severity [...] BID, # 16 g, 3 Refill(s), Pharmacy: [facility] #[id number], 160.02, cm, 08/11/22 18:03:00 EST, Height/Length Dosing, 61.23, kg, 08/11/22 18:03:00 EST, Weight Dosing Start Date: 06/06/23 Stop Date: 05/31/24 Status: Ordered albuterol 90 mcg/inh aerosol inhaler 180 mcg 2 puffs, Inhale, every 4 hr, PRN as needed for wheezing, # 18 g, 3 Refill(s), Pharmacy: [facility] #[id number], 160.02, cm, 08/11/22 18:03:00 EST, Height/Length Dosing, 61.23, kg, 08/11/22 18:03:00 EST, Weight Dosing Start Date: 04/06/23 Status: Ordered celecoxib 200 mg oral capsule 200 mg = 1 cap, Oral, Daily, # 90 cap, 3 Refill(s), Pharmacy: [facility] #[id number], 160.02, cm, 08/11/22 18:03:00 EST, Height/Length Dosing, 61.23, kg, 08/11/22 18:03:00 EST, Weight Dosing Start Date: 08/29/23 Status: Ordered Co-Q10 100 mg oral capsule 100 mg = 1 cap, Oral, Daily, # 30 cap, 0 Refill(s) Start Date: 03/15/22 Status: Ordered doxycycline hyclate 100 mg oral capsule 100 mg = 1 cap, Oral, BID, # 28 cap, 0 Refill(s), Pharmacy: [facility] #[id number], 160.02, cm, 08/11/22 18:03:00 EST, Height/Length Dosing, 58.9, kg, 10/03/23 10:45:00 EST, Weight Dosing Start Date: 10/03/23 Stop Date: 10/17/23 Status: Ordered magnesium oxide 250 mg oral [...] # 1 EA, 11 Refill(s), Pharmacy: [facility], 160.02, cm, 08/11/22 18:03:00 EST, Height/Length Dosing, 61.23, kg, 08/11/22 18:03:00 EST, Weight Dosing Start Date: 09/17/22 Status: Ordered potassium chloride 10 mEq oral capsule, extended release 20 mEq = 2 cap, Oral, Daily, # 180 cap, 3 Refill(s), Pharmacy: [facility] #[id number], 160.02,cm, 08/11/22 18:03:00 EST, Height/Length Dosing, 61.23, kg, 08/11/22 18:03:00 EST, Weight Dosing Start Date: 03/18/23 Stop Date: 03/12/24 Status: Ordered predniSONE 20 mg oral tablet 20 mg = 1 tab, Oral, BID, # 10 tab, 0 Refill(s), Pharmacy: [facility] #[id number], 160.02, cm,08/11/22 18:03:00 EST, Height/Length Dosing, 58.9, kg, 10/03/23 10:45:00 EST, Weight Dosing Start Date: 10/03/23 Stop Date: 10/08/23 Status: Ordered sertraline 50 mg oral tablet 50 mg = 1 tab, Oral, Daily, # 90 tab, 3 Refill(s), Pharmacy: [facility] #[id number], 160.02, cm, 08/11/22 18:03:00 EST, Height/Length Dosing, 61.23, kg, 08/11/22 18:03:00 EST, Weight Dosing Start Date: 03/18/23 Status: Ordered Trelegy Ellipta 200 mcg-62.5 mcg-25 mcg/inh inhalation powder 1 puffs, Inhale, Daily, for 360 days, # 3 EA, 6 Refill(s), Pharmacy: [facility] #[id number], 160.02, cm, 08/11/22 18:03:00 EST, Height/Length Dosing, 61.23, kg, 08/11/22 18:03:00 EST, Weight Dosing Start Date: 02/08/23 Status: Ordered triamterene-hydrochlorothiazide 37.5 mg-25 mg oral tablet 2 tab, Oral, Daily, # 90 tab, 3 Refill(s), Pharmacy: [facility] #[id number], 160.02, cm, 08/11/22 18:03:00 EST, Height/Length Dosing, [...] Physician Member Role: Informed Provider Address: Address: [address] [place] [phone] [place] Care Team Related Persons Name: GEO AMEZCUA Address: [address] [id number] [place] Name: DOMINGO MUNROE
--- OUTSIDE RECORDS SUMMARY | 2024-04-12 15:14 | XMS_ITS | Encounter Summary ---
Author Organization [facility] [place] [address] Care Team Providers Care Electrical Tests Supervisor Name Role Phone Ritu Bolaños APRN Primary Care Provider [phone]- [phone] Encounter Details Date Type Department Care Team (Late st Contact Info) Description 01/02/2021 Refill Sports Medicine at [facility] [address] [place] [address] Roberto Carlos Aguilar MD [address] [place] [address] Claustrophobia; S/P hip arthroscopy; right greater troch bursectomy; 01/23/2020; Dr. Cox; Chronic right hip pain Social History Tobacco Use Types Packs/Day Years [...] on file documented as of this encounter Miscellaneous Notes * Addendum Note - Talita Patterson CMA - 01/02/2021 1:45 PM EDTAddended by: TALITA PATTERSON on: 01/02/2021 01:45 PM Modules accepted: Orders * Telephone Encounter - Mainor Beauchamp - 01/02/2021 1:24 PM EDT Jigna calls to update her pharmacy. She would like her prescriptions called into [facility] in [place], [place]. She is requesting valium for her upcoming MRI on 01/28. documented in this encounter Plan of Treatment Not on file documented as of this encounter Visit Diagnoses Diagnosis Claustrophobia Other isolated or specific phobias S/P hip arthroscopy; right greater troch bursectomy; 01/23/2020; Dr. Cox Chronic right hip pain Pain in joint, pelvic region and thigh documented in this encounter Care Teams Electrical Tests Supervisor Relationship Specialty Start Date End Date Ritu Bolaños APRN [address] [place] [address] PCP - General 05/07/15 02/03/22 documented as of this encounter
--- OUTSIDE RECORDS SUMMARY | 2024-04-12 15:14 | XMS_ITS | Encounter Summary ---
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 Procedures PRO ARTHRODESIS SACROILIAC JOINT PERCUTANEOUS ARTHRODESIS,SACROILIAC JOINT FUSION MODIFIER MEDTRONIC - NAVIGATION / STEALTH MODIFIER MEDTRONIC - RIALTO Referral ID Status Reason Start Date Expiration Date Visits Re quested Visits Authorized [id number] 1 1 Encounter Details Date Type Department Care Team (Late st Contact Info) Description 05/12/2021 1:27 PM EDT Anesthesia [place] [address] [place] [address] Anesthesia Record Procedure Summary Procedure Name Responsible Anesthesiologist Anesthesia Start Time Anesthesia Stop Time ARTHRODESIS,SACROIL IAC JOINT FUSION (WRVU 12.13) (Left: Back) Chay Lott CRNA 05/12/21 1327 05/12/21 1500 Events Date Time Event Comment 05/12/2021 1310 1327 AN Verify 1327 Start 1329 An Start Data 1334 An Induction 1336 An Intubation 1338 Anesthesia Ready 1354 Procedure Start 1440 Procedure Stop 1444 Extubation/LMA Out 1444 an stop data 1500 Recovery or ICU Handoff Karley ent care was transferred to the destination unit staff after review of the patient's medical history, current anesthetic/surgical status and plan, according to the Provider Handoff Checklist. 1500 Stop Meds Name Total Midazolam 4 mg fentaNYL 100 mcg Propofol 300 mg Propofol INF 208.08 mg Rocuronium 40 mg Ondansetron 8 mg Dexamethasone 4 mg ceFAZolin (Ancef) 2 g in dextrose 5% 100 mL infusion 2 g Sugammadex 200 mg lactated ringers infusion 0 mL * Agents Name O2 Air N2O Sevoflurane (et) * Blood No blood administrations on file. Lines, Drains, and Airways Type Details Placement Removal Incision 06/19/19; 0812; hip; 05/12/21; 1607 06/19/19 0812 by Sophia De Anda RN 05/12/21 1607 by Sherie Simpson RN Incision 01/23/20; 1155; hip; arthroscopic punctures (specify); 05/12/21; 1607 01/23/20 1155 by Celia Dunaway RN 05/12/21 1607 by Sherie Simpson RN (RETIRED) Peripheral IV Line - Single Lumen 05/12/21; 1102; metacarpal vein (top of hand), left; ulax-ian-qunjfm catheter system; Anatomical Landmarks; 20 gauge; Alejandro Schuler rn; distraction; 05/12/21; 1607 05/12/21 1102 by Jennifer Schuler RN 05/12/21 1607 by Sherie Simpson RN ETT ETT Type: Cuffed, Or al; ETT Size: 7 mm; Mac Blade: 3; Indirect: Video; Notes: Asleep, Pre-O2, Stylette; Attempts: 2; Laryngoscopy Grade: 1; ETT Placement Verified By: Auscultation, Capnometry, Visual; Secured at Teeth: 22 cm; Inserted by: Bia Lott CRNA; Removal Date: 05/12/21; Removal Time: 1444 05/12/21 1336 by Chay Lott CRNA 05/12/21 1444 by Chay Lott CRNA Incision 05/12/21; 1354; Left ; sacral spine; 05/17/22 (LDA cleanup utility RA#[id number]); 1715 (LDA cleanup utility RA#[id number]) 05/12/21 1354 by Yaa Wright RN 05/17/22 1715 by Yasmani Wood documented in this encounter Social History Tobacco Use Types Packs/Day Years [...] on file documented as of this encounter OR Notes * Anesthesia Postprocedure Evaluation - Chay Lott CRNA - 05/12/2021 3:42 PM EDT Department of Anesthesiology Post-procedure Note Patient: Jigna Espinoza Procedure Summary Date: 05/12/21 Room / Location: [facility] MAIN OR Anesthesia Start: 1327 Anesthesia Stop: Procedures: ARTHRODESIS,SACROILIAC JOINT FUSION (Left Back) MODIFIER MEDTRONIC - NAVIGATION / STEALTH (Left Back) MODIFIER MEDTRONIC - RIALTO (Left Back) Diagnosis: (LEFT SIJD) Surgeons: Jerome Fontanez MD Responsible Provider: Chay Lott CRNA Anesthesia Type: general ASA Status: 2 All Anesthesia Providers: JACKY Independent: Chay Lott CRNA Vitals Value Taken Time BP 162/90 05/12/21 1521 Temp 36 ??C (96.8 ??F) 05/12/21 1447 Pulse 65 05/12/21 1521 Resp 14 05/12/21 1521 SpO2 98 % 05/12/21 1521 Pain Level 0 05/12/21 1521 Patient Location: PACU Level of Consciousness: Awake and Alert Pain Management: Pain Being Addressed PONV: None Cardiovascular Status: At Baseline Respiratory Status: At Baseline Postoperative Fluid Status: Intravascular EUvolemia Possible Anesthetic Complications: NONE apparent at time of evaluation Final Primary Anesthesia Type: General (The anesthetic type performed was the same as planned.) Comments: See PACU Flow Sheet. Continues to present HTN post op. Restarted on home Rx. * Anesthesia Preprocedure Evaluation - Chay Lott, PIGS FEET CLEANER - 05/12/2021 1:09 PM EDT Pre-Anesthesia Evaluation for: Jigna Espinoza a 76 y.o. female. Procedure(s): ARTHRODESIS,SACROILIAC JOINT FUSION MODIFIER MEDTRONIC - NAVIGATION / STEALTH MODIFIER MEDTRONIC - RIALTO Patient Active Problem List Diagnosis ??? S/P hip arthroscopy; right greater troch bursectomy; 01/23/2020; Dr. Cox ??? Hypokalemia ??? Hypotension ??? Claustrophobia ??? Alopecia ??? Anxiety ??? Arthritis ??? Asthma ??? Osteoarthrosis ??? Chronic constipation ??? Depressive disorder ??? Fatigue ??? Gastroesophageal reflux disease ??? Hyperlipidemia ??? Hypertension ??? Osteoporosis ??? Neck pain ??? Leg length discrepancy ??? Vertiginous syndrome and labyrinthine disorder ??? Seborrheic keratosis ??? Sacroiliac joint dysfunction of both sides ??? Lumbar spinal stenosis ??? Breast calcifications ??? Pain in right hip Past Medical History: Diagnosis Date ??? Allergic rhinitis 02/28/2019 ??? Asthma ??? Basal cell carcinoma of skin 02/28/2019 ??? Cancer bcc ??? Chronic pain ??? Claustrophobia 06/11/2019 ??? Gastroesophageal reflux ??? Hand pain, right 02/28/2019 ??? Hand pain, right 02/28/2019 ??? High blood pressure ??? Hyperlipidemia ??? Hypokalemia 11/29/2019 ??? Irregular heart beat PALPITATIONS ??? L3 vertebral fracture 02/28/2019 ??? 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 Osteopenia 02/28/2019 ??? Pain in joint, pelvic region and thigh 02/07/2017 ??? Pain in right hip 01/30/2019 ??? Peptic ulcer disease 02/201904/04/2019 EGD SHOWED HEALED ULCER ??? Rupture of biceps tendon 02/28/2019 ??? S/P lumbar fusion 02/28/2019 ??? S/P lumbar fusion 02/28/2019 ??? Sacroiliac joint dysfunction of both sides 02/28/2019 ??? Status post total hip replacement, right 06/18/2019 Past Surgical History: Procedure Laterality Date ??? APPENDECTOMY 1967 ??? CHOLECYSTECTOMY 1971 ??? COLONOSCOPY 04/04/2019 ??? CT GUIDED INJECTION SI JOINT 01/30/2019 CT Guided Injection SI Joint 01/30/2019 [facility] RAD CAT SCAN ??? CT GUIDED INJECTION SI JOINT 03/24/2021 CT Guided Injection SI Joint 03/24/2021 [facility] RAD CAT SCAN ??? CT GUIDED JOINT INJECTION 09/04/2018 CT Guided Joint Injection 09/04/2018 [facility] RAD CAT SCAN ??? HIP SURGERY 05/25/2017 ??? HYSTERECTOMY ??? JOINT REPLACEMENT Right 06/19/2019 THR ??? OVARY REMOVAL ??? PRO TOTAL HIP ARTHROPLASTY Right 06/19/2019 @TOTAL HIP ARTHROPLASTY, ANTERIOR APPROACH (WRVU 20.72) performed by Eric Soto MD at [facility] MAIN OR ??? PRO UNLISTED PROCEDURE ARTHROSCOPY Right 01/23/2020 ARTHROSCOPIC GREATER TROCHANTERIC BURSECTOMY W ILIOTIBIAL BAND RELEASE performed by Claudio Cox MD at [facility] MAIN OR ??? SPINAL FUSION 01/2018 ??? UPPER GASTROINTESTINAL ENDOSCOPY AND 04/04/2019 ??? XR FLUORO INJECTION DRAINAGE JOINT LG RIGHT Right 03/16/2019 XR Fluoro Guided Joint Injection Large Right 03/16/2019 [facility] RAD XRAY Social History Tobacco Use ??? Smoking status: Former Smoker Packs/day: 0.50 Years: 25.00 Pack years: 12.50 Types: Cigarettes Quit date: 1970 Years since quittin.6 ??? Smokeless tobacco: Never Used Substance Use Topics ??? Alcohol use: Yes Comment: SELDOM Social History Substance and Sexual Activity Drug Use Never Allergies Allergen Reactions ??? Codeine Nausea Only ??? Hydrocodone Nausea Only ??? Hydromorphone Nausea Only ??? Ketorolac Nausea And Vomiting and Other (See Comments) black stools ??? Tramadol Nausea Only Medications: MAR and/or home medications have been reviewed. Physical Exam: Preprocedure Vitals Current as of 05/12/21 1309 BP: 157/87 Pulse: 75 Resp: 16 SpO2: 99 Temp: 37 ??C (98.6 ??F) Height: 162.6 cm (5' 4) (05/12/21) Weight: 61.2 kg (135 lb) (05/12/21) BMI: 23.17 IBW: 54.7 kg (120 lb 10.7 oz) Last edited 05/12/21 1208 by ED Currently displaying vitals information from multiple entries within 90 minutes of most recent vitals. Airway Assessment: Mallampati: II TM distance: >3 FB Neck ROM: full Cardiovascular Assessment: Rhythm: regular Rate: normal Pulmonary Assessment: breath sounds clear to auscultation Dental Assessment: (+) upper dentures and lower dentures Misc Assessment: Patient is wearing No contact(s). IV access: Peripheral line Last Filed Perioperative Cognitive Screening None Anesthesia Plan: ASA 2 general, with a(n) intravenous induction Informed Consent: Anesthetic plan and risks discussed with patient. Anesthesia Screening documented in this encounter Plan of Treatment Not on file documented as of this encounter Visit Diagnoses Not on filedocumented in this encounter Administered Medications Inactive Administered Medications - up to 3 most recent administrations Medication Order MAR Action Action Date Dose Rate Site ceFAZolin (Ancef) 2 g in dextrose 5% 100 mL infusion 2 g, Intravenous, ONCE, 1 dose, On Tue05/12/21 at 1115, Administer over 30 Minutes, To be administered upon arrival to the OR within one hour prior to incision., Day of Surgery (Day of Procedure), Indication for (Active or Suspected): Prophylaxis Given 05/12/2021 1:38 PM EDT 2 g dexamethasone (Decadron) injection Intravenous, PRN, Starting on Tue05/12/21 at 1353, Until Tue05/12/21 at 1546, Anesthesia Intra-op, Routine Given 05/12/2021 1:53 PM EDT 4 mg fentaNYL (pf) (50 mcg/mL) multi-dose injection Intravenous, PRN, Starting on Tue05/12/21 at 1334, Until Tue05/12/21 at 1546, Anesthesia Intra-op, Routine Given 05/12/2021 1:47 PM EDT 50 mcg Given 05/12/2021 1:34 PM EDT 50 mcg midazolam (pf) (Versed) (1 mg/mL) multi-dose injection Intravenous, PRN, Starting on Tue05/12/21 at 1327, Until Tue05/12/21 at 1546, Anesthesia Intra-op, Routine Given 05/12/2021 1:47 PM EDT 2 mg Given 05/12/2021 1:27 PM EDT 2 mg ondansetron (pf) (Zofran) (2 mg/mL) injection Intravenous, PRN, Starting on Tue05/12/21 at 1353, Until Tue05/12/21 at 1546, Anesthesia Intra-op, Routine Given 05/12/2021 1:53 PM EDT 8 mg propofoL (Diprivan) 10 mg/mL bolus injection (Anesthesia) Intravenous, PRN, Starting on Tue05/12/21 at 1334, Until Tue05/12/21 at 1546, Anesthesia Intra-op Given 05/12/2021 1:34 PM EDT 300 mg propofoL (Diprivan) infusion Intravenous, CONTINUOUS PRN, Starting on Tue05/12/21 at 1350, Until Tue05/12/21 at 1546, Anesthesia Intra-op, Routine Rate/Dose Change 05/12/2021 2:28 PM EDT 125 mcg/kg/min 45.9 mL/hr New Bag 05/12/2021 1:50 PM EDT 50 mcg/kg/min 18.36 mL/h r rocuronium (Zemuron) 10 mg/mL injection Intravenous, PRN, Starting on Tue05/12/21 at 1334, Until Tue05/12/21 at 1546, Anesthesia Intra-op, Routine Given 05/12/2021 1:34 PM EDT 40 mg sugammadex (Bridion) 100 mg/mL injection Intravenous, PRN, Starting on Tue05/12/21 at 1428, Until Tue05/12/21 at 1546, Anesthesia Intra-op, Routine Given 05/12/2021 2:28 PM EDT 200 mg documented in this encounter Care Teams Stock Plan Administrator Relationship Specialty Start Date End Date Ritu Bolaños APRN [address] [place] [address] PCP - General 05/07/15 02/03/22 documented as of this encounter
--- OUTSIDE RECORDS SUMMARY | 2024-04-12 15:14 | XMS_ITS | Continuity of Care Document ---
Author Organization [facility] Address [address] [place] [address] Care Team Providers Care Continuous Pillowcase Cutter Name Role Phone Jade Stewart Primary Care Physician Encounter [facility] Date(s): 03/19/24 - 03/19/[address] [address] Discharge Disposition: Home Allergies, Adverse Reactions, Alerts Substance Reaction Severity Status codeine Nausea Severe Active HYDROmorphone Nausea Severe Active HYDROcodone Nausea Severe Active traMADol Nausea Severe Active Hayfever Unknown Unknown Active Assessment and Plan Future Appointments Future Scheduled Tests Radiology* MG Mammo Screening Bilateral w/ Waldemar 02/28/24 * CT Angio Chest 03/19/24 Immunizations Given and Recorded Vaccine Date Status [...] wheezing, # 18 g, 3 Refill(s), Pharmacy: [facility] #[id number], 160.02, cm, 08/11/22 18:03:00 EST, Height/Length Dosing, 61.23, kg, 08/11/22 18:03:00 EST, Weight Dosing Start Date: 04/06/23 Status: Ordered celecoxib 200 mg oral capsule 200 mg = 1 cap, Oral, Daily, # 90 cap, 3 Refill(s), Pharmacy: [facility] #[id number], 160.02, cm, 08/11/22 18:03:00 EST, Height/Length Dosing, 61.23, kg, 08/11/22 18:03:00 EST, Weight Dosing Start Date: 08/29/23 Status: Ordered Co-Q10 100 mg oral capsule 100 mg = 1 cap, Oral, Daily, # 30 cap, 0 Refill(s) Start Date: 03/15/22 Status: Ordered fluticasone 50 mcg/inh nasal spray 1 sprays, !-Nasal, BID, SHAKE LIQUID., # 48 g, 0 Refill(s), Pharmacy: [facility] #[id number], 162.56, cm, 11/08/23 11:40:00 EST, Height, 58.7, [...] # 1 EA, 11 Refill(s), Pharmacy: [facility], 160.02, cm, 08/11/22 18:03:00 EST, Height/Length Dosing, 61.23, kg, 08/11/22 18:03:00 EST, Weight Dosing Start Date: 09/17/22 Status: Ordered potassium chloride 10 mEq oral capsule, extended release 20 mEq = 2 cap, Oral, Daily, # 180 cap, 3 Refill(s), Pharmacy: [facility] #[id number], 160.02,cm, 08/11/22 18:03:00 EST, Height/Length Dosing, 61.23, kg, 08/11/22 18:03:00 EST, Weight Dosing Start Date: 03/18/23 Stop Date: 03/12/24 Status: Ordered predniSONE 10 mg oral tablet 10 mg = 1 tab, Oral, Daily, # 30 tab, 0 Refill(s), Pharmacy: [facility] #[id number], 163, cm, 01/12/24 13:11:00 EDT, Height, 58, kg, 03/19/24 13:27:00 EDT, Weight Dosing Start Date: 03/19/24 Status: Ordered sertraline 50 mg oral tablet 50 mg = 1 tab, Oral, Daily, # 90 tab, 3 Refill(s), Pharmacy: [facility] #[id number], 160.02, cm, 08/11/22 18:03:00 EST, Height/Length Dosing, 61.23, kg, 08/11/22 18:03:00 EST, Weight Dosing Start Date: 03/18/23 Status: Ordered Trelegy Ellipta 200 mcg-62.5 mcg-25 mcg/inh inhalation powder 1 puffs, Inhale, Daily, for 360 days, # 3 EA, 6 Refill(s), Pharmacy: [facility] #[id number], 160.02, cm, 08/11/22 18:03:00 EST, Height/Length Dosing, 61.23, kg, 08/11/22 18:03:00 EST, Weight Dosing Start Date: 02/08/23 Status: Ordered triamterene-hydrochlorothiazide 37.5 mg-25 mg oral tablet 2 tab, Oral, Daily, # 90 tab, 0 Refill(s), Pharmacy: [facility] #[id number], 163, cm, 01/11/2413:11:00 EDT, Height, 59.7, kg, 03/05/24 15:10:00 EDT, Weight Dosing Start Date: 03/19/24 Status: Ordered Tylenol 8 HR Arthritis Pain 650 mg oral tablet, extended release 1,300 mg = 2 tab, Oral, BID, 0 Refill(s) Start Date: 03/15/22 Status: Ordered Problem List Condition Confirmation Course Effective Dates Status H ealth Status Informant Allergic rhinitis Confirmed Active Alopecia Confirmed Active Anemia Confirmed 01/12/19 Active Anxiety Confirmed 02/22/19 Active Chronic constipation Confirmed 02/22/19 Active Chronic cough Confirmed Active Refractory chronic cough Confirmed Active Claustrophobia Confirmed Active Cough Confirmed Active Elevated d-dimer Confirmed Active Dysfunction of vestibular system Confirmed Active Proximal humerus fracture Confirmed Active Gastric ulcer Confirmed 02/22/19 Active Gastroesophageal reflux disease Confirmed Active Generalized abdominal pain Confirmed Active Hand joint pain Confirmed Active Left hip pain Confirmed Active Hyperlipidemia Confirmed Active Hypertensive disorder Confirmed Active Hypokalemia Confirmed Active Mammographic calcification of breast Confirmed Active Moderate persistent asthma Confirmed Active Polyarthralgia Confirmed Active Degenerative joint disease involving multiple [...] Number of years: 25; 1 entered on: 03/19/24 Sex Female 1quit 1971 Patient Care team information Care Team Personnel Name: Jade Stewart NP Position: Physician Member Role: Informed Provider Address: Address: [address] [place] [phone] [place] Care Team Related Persons Name: GEO AMEZCUA Address: Home [address] [place] [phone] [place] Name: DOMINGO MUNROE
--- OUTSIDE RECORDS SUMMARY | 2024-04-12 15:14 | XMS_ITS | Encounter Summary ---
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 Procedures PRO ARTHRODESIS SACROILIAC JOINT PERCUTANEOUS ARTHRODESIS,SACROILIAC JOINT FUSION MODIFIER [employer] - NAVIGATION / STEALTH MODIFIER [employer] - RIALTO Referral ID Status Reason Start Date Expiration Date Visits Re quested Visits Authorized [id number] 1 1 Encounter Details Date Type Department Care Team (Late st Contact Info) Description 05/12/2021 11:40 AM EDT Ancillary Procedure Radiology [place]ray at [place] [address] Social History Tobacco Use Types Packs/Day Years [...] OR USE Routine 05/12/2021 2:47 PM EDT documented in this encounter Results * [...] who have questions please contact the health furnace caretaker that requested your imaging first. ? Narrative 05/12/2021 2:56 PM EDT EXAMINATION: XR [...] patients who have questions please contactthe health furnace caretaker that requested your imaging first. Jerome Fontanez MD IMG FLUORO ORDERABLE S documented in this encounter Visit Diagnoses Not on filedocumented in this encounter Care Teams Office Runner Relationship Specialty Start Date End Date Ritu Bolaños APRN [address] [place] [id number] PCP - General 05/07/15 02/03/22 documented as of this encounter
--- OUTSIDE RECORDS SUMMARY | 2024-04-12 15:14 | XMS_ITS | Continuity of Care Document ---
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 Name Role Phone Jade Stewart Primary Care Physician Encounter [facility] Date(s): 03/21/24 - 03/21/[address] [address] Encounter Diagnosis Pulmonary embolism(Discharge Diagnosis) - 03/22/24 Discharge Disposition: Higher Level of Care Attending Physician: Ted Bermudez MD Admitting Physician: Ted Bermudez MD Allergies, Adverse Reactions, Alerts Substance Reaction Severity Status codeine Nausea Severe Active HYDROmorphone Nausea Severe Active HYDROcodone Nausea Severe Active traMADol Nausea Severe Active Hayfever Unknown Unknown Active Assessment and Plan Extracted from: Title:ED Provider Note Author:Seamus Lauren MD Date:03/22/24 Assessment/Plan 1.??Pulmonary embolism??I26.99 Orders: Xarelto 15 mg oral tablet, 15 mg = 1 tab, Oral, BID, with food, X 21 days, # 42 tab, 0 Refill(s), 04/11/24 23:26:00 EDT, Pharmacy: [id number], 163, cm, 01/12/24 13:11:00 EDT, Height, 58, kg, 03/19/24 13:27:00 EDT, Weight Dosing CV EKG ED, 03/21/24 19:12:00 EDT, Stat, Reason: Chest Pain, Stop date and time 03/21/24 19:12:00 EDT, ORD_SET_REQ_DT_RANGE, Priya's Internal Person Id Patient Education Pulmonary Embolism Follow Up With When Contact Information Adal Guillermo MD Within 1 to 2 days [place] [phone] ?? Additional Instructions: Future Appointments Future Scheduled Tests Radiology* MG [...] wheezing, # 18 g, 3 Refill(s), Pharmacy: [facility] #[id number], 160.02, cm, 08/11/22 18:03:00 EST, Height/Length Dosing, 61.23, kg, 08/11/22 18:03:00 EST, Weight Dosing Start Date: 04/06/23 Status: Ordered celecoxib 200 mg oral capsule 200 mg = 1 cap, Oral, Daily, # 90 cap, 3 Refill(s), Pharmacy: [facility] #[id number], 160.02, cm, 08/11/22 18:03:00 EST, Height/Length Dosing, 61.23, kg, 08/11/22 18:03:00 EST, Weight Dosing Start Date: 08/29/23 Status: Ordered Co-Q10 100 mg oral capsule 100 mg = 1 cap, Oral, Daily, # 30 cap, 0 Refill(s) Start Date: 03/15/22 Status: Ordered fluticasone 50 mcg/inh nasal spray 1 sprays, !-Nasal, BID, SHAKE LIQUID., # 48 g, 0 Refill(s), Pharmacy: [facility] #[id number], 162.56, cm, 11/08/23 11:40:00 EST, Height, 58.7, [...] # 1 EA, 11 Refill(s), Pharmacy: [facility], 160.02, cm, 08/11/22 18:03:00 EST, Height/Length Dosing, 61.23, kg, 08/11/22 18:03:00 EST, Weight Dosing Start Date: 09/17/22 Status: Ordered potassium chloride 10 mEq oral capsule, extended release 20 mEq = 2 cap, Oral, Daily, # 180 cap, 3 Refill(s), Pharmacy: [facility] #[id number], 160.02,cm, 08/11/22 18:03:00 EST, Height/Length Dosing, 61.23, kg, 08/11/22 18:03:00 EST, Weight Dosing Start Date: 03/18/23 Stop Date: 03/12/24 Status: Ordered predniSONE 10 mg oral tablet 10 mg = 1 tab, Oral, Daily, # 30 tab, 0 Refill(s), Pharmacy: [facility] #[id number], 163, cm, 01/12/24 13:11:00 EDT, Height, 58, kg, 03/19/24 13:27:00 EDT, Weight Dosing Start Date: 03/19/24 Status: Ordered sertraline 50 mg oral tablet 50 mg = 1 tab, Oral, Daily, # 90 tab, 3 Refill(s), Pharmacy: [facility] #[id number], 160.02, cm, 08/11/22 18:03:00 EST, Height/Length Dosing, 61.23, kg, 08/11/22 18:03:00 EST, Weight Dosing Start Date: 03/18/23 Status: Ordered Trelegy Ellipta 200 mcg-62.5 mcg-25 mcg/inh inhalation powder 1 puffs, Inhale, Daily, for 360 days, # 3 EA, 6 Refill(s), Pharmacy: [facility] #[id number], 160.02, cm, 08/11/22 18:03:00 EST, Height/Length Dosing, 61.23, kg, 08/11/22 18:03:00 EST, Weight Dosing Start Date: 02/08/23 Status: Ordered triamterene-hydrochlorothiazide 37.5 mg-25 mg oral tablet 2 tab, Oral, Daily, # 90 tab, 0 Refill(s), Pharmacy: [facility] #[id number], 163, cm, 01/11/2413:11:00 EDT, Height, 59.7, kg, 03/05/24 15:10:00 EDT, Weight Dosing Start Date: 03/19/24 Status: Ordered Tylenol 8 HR Arthritis Pain 650 mg oral tablet, extended release 1,300 mg = 2 tab, Oral, BID, 0 Refill(s) Start Date: 03/15/22 Status: Ordered Xarelto 15 mg oral tablet 15 mg = 1 tab, Oral, BID, with food, X 21 days, # 42 tab, 0 Refill(s), 04/11/24 10:26:00 PM CDT, Pharmacy: [id number], 163, cm, 01/12/24 13:11:00 EDT, Height, 58, kg, 03/19/24 13:27:00 EDT,Weight Dosing Start Date: 03/21/24 Stop Date: 04/11/24 Status: Ordered Problem List Condition Confirmation Course [...] 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 2002. 1997 Results Laboratory List Name Date CBC w/ Diff 03/21/24 Comprehensive Metabolic Panel 03/21/24 D-Dimer 03/21/24 NT- Pro BNP 03/21/24 Troponin-I 03/21/24 Automated Diff 03/21/24 Most recent to oldest [Reference Range]: 1 WBC [5.0-10.0 x10^3/mcL] 6.0 x10^3/mcL (03/21/24 7: PM) RBC [4.1-5.3 x10^6/mcL] 3.9 x10^6/mcL *LOW* (03/21/24 7: PM) Neutro Auto [40.0-75.0 %] 55.8 % (03/21/24 7: PM) Lymph Auto [20.0-50.0 %] 33.3 % (03/21/24 7: PM) Solano Auto [2.0-15.0 %] 8.4 % (03/21/24 7: PM) Basophil Auto [0.0-1.0 %] 0.3 % (03/21/24 7: PM) BUN [7-18 mg/dL] 19 mg/dL *HI* (03/21/24 7: PM) Glucose Level [74-106 mg/dL] 116 mg/dL *HI* (03/21/24 7: PM) Potassium Level [3.5-5.1 mmol/L] 3.6 mmo l/L (03/21/24 7: PM) MCV [80.0-96.0 fL] 89.4 fL (03/21/24 7: PM) AST [15-37 unit/L] 23 unit/L (03/21/24 7: PM) ALT [14-59 unit/L] 27 unit/L (03/21/24 7: PM) MCHC [31.0-35.0 g/dL] 35.2 g/dL *HI* (03/21/24 7: PM) Troponin-I [0.0-51.4 pg/mL] 9.7 pg/mL (03/21/24 7: PM) Sodium Level [136-145 mmol/L] 132 mmol/L *LOW* (03/21/24 PM) Hct [37.0-47.0 %] 34.7 % *LOW* (03/21/24 PM) Calcium Level [8.5-10.1 mg/dL] 9.0 mg/dL (03/21/24 PM) Albumin Level [3.4-5.0 g/dL] 3.2 g/dL *LOW* (03/21/24 PM) Protein Total [6.4-8.2 g/dL] 6.2 g/dL *LOW* (03/21/24 PM) MCH [26.0-32.0 pg] 31.4 pg (03/21/24 PM) Neutro Absolute 3.4 x10^3/mcL *NA* (03/21/24 PM) Bilirubin Total [0.2-1.0 mg/dL] 0.3 mg/d L (03/21/24 PM) Hgb [12.0-16.0 g/dL] 12.2 g/dL (03/21/24 PM) Alk Phos [46-146 unit/L] 99 unit/L (03/21/24 PM) Platelets [130-450 x10^3/mcL] 268 x10^3/ mcL (03/21/24 PM) CO2 [21-32 mmol/L] 29 mmol/L (03/21/24 PM) eGFR Non-AA [>=60] 66 (03/21/24 PM) eGFR AA [>=60] 66 (03/21/24 PM) NT-proBNP [0-450 pg/mL] 125 pg/mL (03/21/24 PM) Chloride Level [98-107 mmol/L] 96 mmol/L *LOW* (03/21/24 PM) RDW-CV [11.5-14.5 %] 13.9 % (03/21/24 PM) Imm Gran Auto [0.0-0.9 %] 0.5 % (03/21/24 PM) Slide Review Not Indicated (7/3/24 7:27 PM) Creatinine Level [0.55-1.02 mg/dL] 0.88 mg/dL (03/21/24 7:27 PM) D Dimer, (Quant.) [0.00-0.50 mg/L] 0.42 mg/L 1 (03/21/24 7:27 PM) Eos, Auto [1.0-6.0 %] 1.7 % (03/21/24 7:27 PM) 1Interpretive Data: Exclusion of PE: Effective June 07, 2012 a new D-Dimer assay [whereIstand.com] is being implemented, this test has a [...] >/= 0.50 was considered positive for PE. Vital Signs Most recent to oldest [Reference Range]: 1 Temperature Temporal Artery [36-38 Deg C ] 36.4 Deg C (03/21/24 6:40 PM) Peripheral Pulse Rate [60-100 bpm] 80 bp m (03/21/24 6:40 PM) Respiratory Rate [12-24 br/min] 19 br/mi n (03/21/24 6:40 PM) Blood Pressure [90-140/60-90 mmHg] 153/8 6mmHg *HI* (03/21/24 6:40 PM) Mean Arterial Pressure, Cuff [65-140 mmH g] 108 mmHg (03/21/24 6:40 PM) Social History Social History Type Response Smoking Status Smoking tobacco use: Former tobacco user;Never; Number used per day: 1/2 ppd; Number of years: 25; 1 entered on: 03/19/24 Sex Female 1quit 1970 Hospital Discharge Instructions Patient Education 03/21/2024 19:17:56 Pulmonary Embolism Pulmonary Embolism A pulmonary embolism (PE) is a sudden blockage or decrease of blood flow in one or both lungs that happens when a clot travels into the arteries of the lung (pulmonary arteries). Most blockages come from a blood clot that forms in the vein of a leg or arm (deep vein thrombosis, DVT) and travels to the lungs. A clot is blood that has thickened into a gel or solid. PE is a dangerous and life-threatening condition that needs to be treated right away. What are the causes? This condition is usually caused by a blood clot that forms in a vein and moves to the lungs. In rare cases, it may be caused by air, fat, part of a tumor, or other tissue that moves through the veins and into the lungs. What increases the risk? The following factors may make you more likely to develop this condition: ??? Experiencing a traumatic injury, such as breaking a hip or leg. ??? Having: ??? A spinal cord injury. ??? Major surgery, especially hip or knee replacement, or surgery on parts of the nervous system oron the abdomen. ??? A stroke. ??? A blood-clotting disease. ??? Long-term (chronic) lung or heart disease. ??? Cancer, especially if you are being treated with chemotherapy. ??? A central venous catheter. ??? Taking medicines that contain estrogen. These include control pills and hormone replacement therapy. ??? Being: ??? . ??? In the period of time after your baby is delivered (). ??? Older than age 60. ??? Overweight. ??? A smoker, especially if you have other risks. ??? Not very active (sedentary), not being able to move at all, or spending long periods sitting, such as travel over 6 hours. You are also at a greater risk if you have a leg in a cast or splint. What are the signs or symptoms? Symptoms of this condition usually start suddenly and include: ??? Shortness of breath during activity or at rest. ??? Coughing, coughing up blood, or coughing up bloody mucus. ??? Chest pain, back pain, or shoulder blade pain that gets worse with deep breaths. ??? Rapid or irregular heartbeat. ??? Feeling light-headed or dizzy, or fainting. ??? Feeling anxious. ??? Pain and swelling in a leg. This is a symptom of DVT, which can lead to PE. How is this diagnosed? This condition may be diagnosed based on your medical history, a physical exam, and tests. Tests may include: ??? Blood tests. ??? An ECG (electrocardiogram) of the heart. ??? A CT pulmonary angiogram. This test checks blood flow in and around your lungs. ??? A ventilation???perfusion scan, also called a lung VQ scan. This test measures air flow and blood flow to the lungs. ??? An ultrasound to check for a DVT. How is this treated? Treatment for this condition depends on many factors, such as the cause of your PE, your risk for bleeding or developing more clots, and other medical conditions you may have. Treatment aims to stop blood clots from forming or growing larger. In some cases, treatment may be aimed at breaking apart or removing the blood clot. Treatment may include: ??? Medicines, such as: ??? Blood thinning medicines, also called anticoagulants, to stop clots from forming and growing. ??? Medicines that break apart clots (fibrinolytics). ??? Procedures, such as: ??? Using a flexible tube to remove a blood clot (embolectomy) or to deliver medicine to destroy it(catheter-directed thrombolysis). ??? Surgery to remove the clot (surgical embolectomy). This is rare. You may need a combination of immediate, long-term, and extended treatments. Your treatment may continue for several months (maintenance therapy) or longer depending on your medical conditions. You and your health care provider will work together to choose the treatment program that is best for you. Follow these instructions at home: Medicines ??? Take [id number] and prescription medicines only as told by your health care provider. ??? If you are taking blood thinners: ??? Talk with your health care provider before you take any medicines that contain aspirin or NSAIDs, such as ibuprofen. These medicines increase your risk for dangerous bleeding. ??? Take your medicine exactly as told, at the same time every day. ??? Avoid activities that could cause injury or bruising, and follow instructions about how to prevent falls. ??? Wear a medical alert bracelet or carry a card that lists what medicines you take. ??? Understand what foods and drugs interact with any medicines that you are taking. General instructions ??? Ask your health care provider when you may return to your normal activities. Avoid sitting or lying for a long time without moving. ??? Maintain a healthy weight. Ask your health care provider what weight is healthy for you. ??? Do not use any products that contain nicotine or tobacco. These products include cigarettes, chewing tobacco, and vaping devices, such as e-cigarettes. If you need help quitting, ask your health care provider. ??? Talk with your health care provider about any travel plans. It is important to make sure that you are still able to take your medicine while traveling. ??? Keep all follow-up visits. This is important. Where to find more information ??? [place] [employer] Association: www.lung.org ??? Centers for Disease Control and Prevention: www.cdc.gov Contact a health care provider if: ??? You missed a dose of your blood thinner medicine. ??? You have a fever. Get help right away if: ??? You have: ??? New or increased pain, swelling, warmth, or redness in an arm or leg. ??? Shortness of breath that gets worse during activity or at rest. ??? Worsening chest pain. ??? A rapid or irregular heartbeat. ??? A severe headache. ??? Vision changes. ??? A serious fall or accident, or you hit your head. ??? Blood in your vomit, stool, or urine. ??? A cut that will not stop bleeding. ??? You cough up blood. ??? You feel light-headed or dizzy, and that feeling does not go away. ??? You cannot move your arms or legs. ??? You are confused or have memory loss. These symptoms may represent a serious problem that is an emergency. Do not wait to see if the symptoms will go away. Get medical help right away. Call your local emergency services (911 in the [place] Do not drive yourself to the hospital. Summary ??? A pulmonary embolism (PE) is a serious and potentially life-threatening condition. It happens when a blood clot from one part of the body travels to the arteries of the lung, causing a sudden blockage or decrease of blood flow to the lungs. This may result in shortness of breath, chest pain, dizziness, and fainting. ??? Treatments for this condition usually include medicines to thin your blood (anticoagulants) or medicines to break apart blood clots. ??? If you are given blood thinners, take your medicine exactly as told by your health care provider, at the same time every day. This is important. ??? Understand what foods and drugs interact with any medicines that you are taking. ??? If you have signs of PE or DVT, call your local emergency services (911 in the [place] This information is not intended to replace advice given to you by your health care provider. Make sure you discuss any questions you have with your health care provider. Document Revised: 08/07/2021 Document Reviewed: 08/07/2021 [employer] Patient Education ?? 2022 [employer] ([employer] Follow Up Care 03/21/2024 18:35:02 With:Adal Guillermo MD Address: [facility] [place] [phone] When:1 to 2 days Physician Emergency department Note * Seamus Lauren MD: PERFORM Event Display: ED Note Physician Authored Date: [id number] FUNMI AMEZCUA :1945 Age:79 years Sex:Female Visit Date:03/21/2024 Primary Care Physician: Jade Stewart NP Basic Information Time Seen: Seamus Lauren MD / 03/21/2024 19:10 Chief Complaint had a ct done today ordered by dr. guillermo. was told I have a small blood clot in my left lung with right heart strain. pt states she has had a awful cough for a while denies sob admits to chest tightness when she exhales History Of Present Illness: Patient had an episode in September 2023 where she had sudden onset of severe??chest pain that lastedabout 20 seconds and then went away.?? Since then she is dealt with chronic cough that has been investigated in the outpatient setting initially with a Noncon chest CT and a D-dimer which ultimately proved positive then she went for a CT angiogram of the chest and that was earlier today and that demonstrated??a subsegmental??pulmonary embolism. ??Patient denies any short of breath of exertion??denies any pleuritic chest pain. ??Her only complaint is a persistent dry cough. Review of Systems: Constitutional:?No??fevers,?No??chills,?No??sweats Eye:?No??recent visual problems ENT:?No??ear pain,?No??nasal congestion,?No??sore throat Respiratory:?No??shortness of breath,? Cardiovascular:?No??Chest pain,?No??palpitations,?No??syncope Gastrointestinal:?Nonausea,?No??vomiting,?No??diarrhea Genitourinary:?No??hematuria Bartolo/Lymph:?No??bruising tendency,?No??swollen lymph glands Endocrine:?No??excessive thirst,??No??excessive hunger Musculoskeletal:??No??back pain,??No??neck pain,??No??joint pain,??No??muscle pain,??No??decreased range of motion Integumentary:?No??rash,?No??pruritus,?No??abrasions Neurologic: Alert & oriented X 4 Psychiatric:?No??anxiety,?No??depression Physical Exam Vitals & Measurements T:??36.4?C ??(Temporal Artery)?? HR:??80??(Peripheral)?? RR:??19?? BP:??153/86?? SpO2:??96%?? O2 Therapy:??Room air?? General: Alert and oriented, well nourished,?? No acute distress Eye: PERRL, EOMI,?? Normal?? conjunctiva HENT: Normocephalic,?? Normal?hearing, moist oral mucosa,?? No scleral icterus,?? No sinus tenderness Neck: Supple, non-tender,?? No JVD,?? No lymphadenopathy Lungs:?? Respiration: Non-Labored Heart:?? Normal?rate,?? Regular rhythm,?? No edema Abdomen: Soft, non-tender, non-distended,?? No masses Musculoskeletal:?? Normal?range of motion and strength,?? No tenderness,?? No swelling Skin: Skin is warm, dry and pink,?? No rashes,?? No lesions Neurologic: Awake, alert and oriented X4, CN II-XII intact Psychiatric: Cooperative, appropriate mood and affect Medical Decision Making: Patient with stable vital signs and no pleuritic chest pain.?? Her only complaint is cough. ??No shortness of breath on exertion.?? Anticoagulation with a NOAC was started in the emergency departmentand she will??begin a Xarelto starter pack. ??Follow-up with her outpatient PMD for continued anticoagulation. ??CT scan of the chest showed suggestion of possible RV strain but her troponin and her BNP was negative. ??She would also benefit from an outpatient echocardiogram. Procedure No Qualifying Data Assessment/Plan 1.??Pulmonary embolism??I26.99 Orders: Xarelto 15 mg oral tablet, 15 mg = 1 tab, Oral, BID, with food, X 21 days, # 42 tab, 0 Refill(s), 04/11/24 23:26:00 EDT, Pharmacy: [id number], 163, cm, 01/12/24 13:11:00 EDT, Height, 58, kg, 03/19/24 13:27:00 EDT, Weight Dosing CV EKG ED, 03/21/24 19:12:00 EDT, Stat, Reason: Chest Pain, Stop date and time 03/21/24 19:12:00 EDT, ORD_SET_REQ_DT_RANGE, Priya's Internal Person Id Patient Education Pulmonary Embolism Follow Up With When Contact Information Adal Guillermo MD Within 1 to 2 days [facility] [address] [phone]- Additional Instructions: Medication Reconciliation New Prescription rivaroxaban (Xarelto 15 mg oral tablet)1 tab Oral (given by mouth) 2 times a day for 21 Days. with food. Refills: 0. ?? Unchanged acetaminophen (Tylenol 8 HR Arthritis Pain 650 mg oral tablet, extended release)2 tab Oral (given by mouth) 2 times a day. ?? albuterol (albuterol 90 mcg/inh aerosol inhaler)2 Puffs Inhale (breathe in) every 4 hours as neededas needed for wheezing. Refills: 3. ?? celecoxib (celecoxib 200 mg oral capsule)1 Capsules Oral (given by mouth) every day. Refills: 3. ?? fluticasone nasal (fluticasone 50 mcg/inh nasal spray)1 Sprays Nasal (into the nose) 2 times a day.SHAKE LIQUID.. Refills: 0. ?? fluticasone/umeclidinium/vilanterol (Trelegy Ellipta 200 mcg-62.5 mcg-25 mcg/inh inhalation powder)1 Puffs Inhale (breathe in) every day. for 360 days. Refills: 6. ?? magnesium oxide (magnesium oxide 250 mg oral tablet)1 tab Oral (given by mouth) 2 times a day. ?? mepolizumab (Nucala 100 mg subcutaneous injection)Inject 1 pen under skin every 28 days. Refills: 11. ?? multivitamin (multivitamin adult, oral tablet)1 tab Oral (given by mouth) every day. ?? polyethylene glycol 3350 (MiraLax oral powder for reconstitution)17 Gram Oral (given by mouth) 2 times a day. dissolve in water before taking. ?? potassium chloride (potassium chloride 10 mEq oral capsule, extended release)2 Capsules Oral (givenby mouth) every day for 90 Days. Refills: 3. ?? predniSONE (predniSONE 10 mg oral tablet)1 tab Oral (given by mouth) every day. Refills: 0. ?? sertraline (sertraline 50 mg oral tablet)1 tab Oral (given by mouth) every day. Refills: 3. ?? triamterene-hydrochlorothiazide (triamterene-hydrochlorothiazide 37.5 mg-25 mg oral tablet)2 tab Oral (given by mouth) every day. Refills: 0. ?? ubiquinone (Co-Q10 100 mg oral capsule)1 Capsules Oral (given by mouth) every day. 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 Elevated d-dimer Gastric ulcer Gastroesophageal reflux disease Generalized abdominal pain Hand joint pain Hyperlipidemia Hypertensive disorder Hypokalemia Left hip pain Mammographic calcification of breast Moderate persistent asthma Osteoporosis Polyarthralgia Postoperative nausea and vomiting Proximal humerus fracture Refractory chronic cough Seasonal allergic rhinitis Spinal stenosis of lumbar region Wrinkle Historical Disorder of tendon Procedure/Surgical History ???Colonoscopy (01/12/2024)???Fusion procedure (procedure) (04/19/2021)???Arthroscopy of hip (procedure) (03/29/2020)???EGD - Esophagogastroduodenoscopy (04/04/2019)???Colonoscopy (02/13/2019)???Spinal fusion (01/2018)???Hysterectomy (09/19/1992)???Cholecystectomy (09/19/1970)???Appendectomy (09/19/1966) Medication Administration Given Xarelto, 15 mg, Oral Allergies HYDROcodone??(Nausea) HYDROmorphone??(Nausea) codeine??(Nausea) traMADol??(Nausea) Hayfever??(Unknown) Social History Electronic Cigarette/Vaping Electronic Cigarette Use: Never. Tobacco Former tobacco user Tobacco Use:. 1/2 ppd per day. 25 year(s). Never Smokeless Tobacco use:.- Comments: quit 1970 Family History Alzheimer's disease: Mother. Lymphoma: Brother. Prostate cancer: Father. Family Member(s): ?? FATHER, at age: 82 Years. Cause of : Family Member(s): ?? MOTHER, at age: 77 Years. Cause of : Diagnostic Results ECG EKG shows a sinus rate of 72 with an occasional premature atrial contraction. ??No ST changes consistent with ischemia no significant intraventricular conduction delay.?? No [id number] pattern. Lab Results CBC and Differential?? LATEST RESULTS?? HISTORICAL RESULTS?? WBC?? 03/21/24 19:27?? 6.0?? 03/07/24?? 7.0?? RBC?? 03/21/24 19:27?? 3.9 ??Low?? 03/07/24?? 4.3?? Hgb?? 03/21/24 19:27?? 12.2?? 03/07/24?? 13.1?? Hct?? 03/21/24 19:27?? 34.7 ??Low?? 03/07/24?? 38.4?? MCV?? 03/21/24 19:27?? 89.4?? 03/07/24?? 89.1?? MCH?? 03/21/24 19:27?? 31.4?? 03/07/24?? 30.4?? MCHC?? 03/21/24 19:27?? 35.2 ??High?? 03/07/24?? 34.1?? RDW-CV?? 03/21/24 19:27?? 13.9?? 03/07/24?? 13.0?? Platelets?? 03/21/24 19:27?? 268?? 03/07/24?? 270?? Neutro Auto?? 03/21/24 19:27?? 55.8?? 03/07/24?? 75.6 ??High?? Lymph Auto?? 03/21/24 19:27?? 33.3?? 03/07/24?? 18.5 ??Low?? Solano Auto?? 03/21/24 19:27?? 8.4?? 03/07/24?? 3.9?? Eos, Auto?? 03/21/24 19:27?? 1.7?? 03/07/24?? 0.7 ??Low?? Basophil Auto?? 03/21/24 19:27?? 0.3?? 03/07/24?? 0.6?? Imm Gran Auto?? 03/21/24 19:27?? 0.5?? 03/07/24?? 0.7?? Neutro Absolute?? 03/21/24 19:27?? 3.4?? 03/07/24?? 5.3?? Slide Review?? 03/21/24 19:27?? Not Indicated? Coagulation?? LATEST RESULTS?? HISTORICAL RESULTS?? D Dimer, (Quant.)?? 03/21/24 19:27?? 0.42?? 03/07/24?? 0.78 ??High? Routine Chemistry?? LATEST RESULTS?? HISTORICAL RESULTS?? Sodium Level?? 03/21/24 19:27?? 132 ??Low?? 03/07/24?? 131 ??Low?? Potassium Level?? 03/21/24 19:27?? 3.6?? 03/07/24?? 3.7?? Chloride Level?? 03/21/24 19:27?? 96 ??Low?? 03/07/24?? 95 ??Low?? CO2?? 03/21/24 19:27?? 29?? 03/07/24?? 29?? Alk Phos?? 03/21/24 19:27?? 99?? 03/07/24?? 74?? AST?? 03/21/24 19:27?? 23?? 03/07/24?? 27?? ALT?? 03/21/24 19:27?? 27?? 03/07/24?? 29?? BUN?? 03/21/24 19:27?? 19 ??High?? 03/07/24?? 24 ??High?? Glucose Level?? 03/21/24 19:27?? 116 ??High?? 03/07/24?? 101?? Creatinine Level?? 03/21/24 19:27?? 0.88?? 03/07/24?? 0.94?? eGFR AA?? 03/21/24 19:27?? 66?? 03/07/24?? 62?? eGFR Non-AA?? 03/21/24 19:27?? 66?? 03/07/24?? 62?? Calcium Level?? 03/21/24 19:27?? 9.0?? 03/07/24?? 9.2?? Protein Total?? 03/21/24 19:27?? 6.2 ??Low?? 03/07/24?? 7.2?? Albumin Level?? 03/21/24 19:27?? 3.2 ??Low?? 03/07/24?? 3.7?? Bilirubin Total?? 03/21/24 19:27?? 0.3?? 03/07/24?? 0.7? Cardiac Isoenzymes?? LATEST RESULTS?? Troponin-I?? 03/21/24 19:27?? 9.7?? NT-proBNP?? 03/21/24 19:27?? 125? Electronically Signed on 03/22/2024 02:25 EDT Seamus Lauren MD Emergency department Discharge instructions * Seamus Lauren MD: PERFORM Event Display: ED Discharge Information Authored Date: [id number] FUNMI AMEZCUA :1945 Age:79 years Sex:Female Visit Date:03/21/2024 Primary Care Physician: Jade Stewart NP Discharge Instructions We would like to thank you for allowing us to assist you with your healthcare needs. The following includes patient education materials and information regarding your injury/illness. Discharge Vitals Temperature??(Temporal Artery) 97.5 ??F (36.4 ??C) Heart Rate??(Peripheral) 80 Respiratory Rate?? 19 Blood Pressure?? 153/86?? SpO2?? 96% Allergies HYDROcodone??(Nausea) HYDROmorphone??(Nausea) codeine??(Nausea) traMADol??(Nausea) Hayfever??(Unknown) What to Do Next You Need to Schedule the Following Appointments Follow Up with??Adal Guillermo MD When:??Within 1 to 2 days Where: [facility] [address] [address]- Upcoming Scheduled Appointments Tuesday 10:40 AM EDT ?? With: Jade Stewart NP Where: [facility] [address] [address] Status: Confirmed You were treated today on an emergency basis; it may be bahena to contact your primary care provider to notify them of your visit today. You may have been referred to your regular doctor or a specialist, please follow up as instructed. If your condition worsens or you can't get in to see the doctor, contact the Emergency Department. Medications What How Much When Why Instructions Next Dose New rivaroxaban (Xarelto 15 mg oral tablet) 1 tab Oral (given by mouth) 2 times a day Duration: 21 Days with food ?? Pickup at [facility] Unchanged acetaminophen (Tylenol 8 HR Arthritis Pain 650 mg oral tablet, extended release) 2 tab Oral (given by mouth) 2 times a day Unchanged albuterol (albuterol 90 mcg/ inh aerosol inhaler) 2 Puffs Inhale (breathe in) Every 4 hours as needed for as needed for wheezing Unchanged celecoxib (celecoxib 200 mg oral capsule) 1 Capsules Oral (given by mouth) Every day Unchanged fluticasone nasal (fluticasone 50 mcg/ inh nasal spray) 1 Sprays Nasal (into the nose) 2 times a day SHAKE LIQUID. ?? Unchanged fluticasone/ umeclidinium/ vilanterol (Trelegy Ellipta 200 mcg-62.5 mcg-25 mcg/ inh inhalation powder) 1 Puffs Inhale (breathe in) Every day for 360 days ?? Unchanged magnesium oxide (magnesium oxide 250 mg oral tablet) 1 tab Oral (given by mouth) 2 times a day Unchanged mepolizumab (Nucala 100 mg subcutaneous injection) See instructions Inject 1 pen under skin every 28 days ?? Unchanged multivitamin (multivitamin adult, oral tablet) 1 tab Oral (given by mouth) Every day Unchanged polyethylene glycol 3350 (MiraLax oral powder for reconstitution) 17 Gram Oral (given by mouth) 2 times a day dissolve in water before taking ?? Unchanged potassium chloride (potassium chloride 10 mEq oral capsule, extended release) 2 Capsules Oral (given by mouth) Every day Duration: 90 Days Unchanged predniSONE (predniSONE 10 mg oral tablet) 1 tab Oral (given by mouth) Every day Polyarthralgia Unchanged sertraline (sertraline 50 mg oral tablet) 1 tab Oral (given by mouth) Every day Anxiety Unchanged triamterene-hydrochlorothiazide (triamterene-hydrochlorothiazide 37.5 mg-25 mg oral tablet) 2 tab Oral (given by mouth) Every day Unchanged ubiquinone (Co-Q10 100 mg oral capsule) 1 Capsules Oral (given by mouth) Every day Pharmacy Information [facility] #[id number]: [address] [phone] Education Materials Pulmonary Embolism A pulmonary embolism (PE) is a sudden blockage or decrease of blood flow in one or both lungs that happens when a clot travels into the arteries of the lung (pulmonary arteries). Most blockages come from a blood clot that forms in the vein of a leg or arm (deep vein thrombosis, DVT) and travels to the lungs. A clot is blood that has thickened into a gel or solid. PE is a dangerous and life-threatening condition that needs to be treated right away. What are the causes? This condition is usually caused by a blood clot that forms in a vein and moves to the lungs. In rare cases, it may be caused by air, fat, part of a tumor, or other tissue that moves through the veins and into the lungs. What increases the risk? The following factors may make you more likely to develop this condition: ? Experiencing a traumatic injury, such as breaking a hip or leg. ? Having: ? A spinal cord injury. ? Major surgery, especially hip or knee replacement, or surgery on parts of the nervous system or on the abdomen. ? A stroke. ? A blood-clotting disease. ? Long-term (chronic) lung or heart disease. ? Cancer, especially if you are being treated with chemotherapy. ? A central venous catheter. ? Taking medicines that contain estrogen. These include control pills and hormone replacement therapy. ? Being: ? . ? In the period of time after your baby is delivered (). ? Older than age 60. ? Overweight. ? A smoker, especially if you have other risks. ? Not very active (sedentary), not being able to move at all, or spending long periods sitting, such as travel over 6 hours. You are also at a greater risk if you have a leg in a cast or splint. What are the signs or symptoms? Symptoms of this condition usually start suddenly and include: ? Shortness of breath during activity or at rest. ? Coughing, coughing up blood, or coughing up bloody mucus. ? Chest pain, back pain, or shoulder blade pain that gets worse with deep breaths. ? Rapid or irregular heartbeat. ? Feeling light-headed or dizzy, or fainting. ? Feeling anxious. ? Pain and swelling in a leg. This is a symptom of DVT, which can lead to PE. How is this diagnosed? This condition may be diagnosed based on your medical history, a physical exam, and tests. Tests may include: ? Blood tests. ? An ECG (electrocardiogram) of the heart. ? A CT pulmonary angiogram. This test checks blood flow in and around your lungs. ? A ventilation???perfusion scan, also called a lung VQ scan. This test measures air flow and blood flow to the lungs. ? An ultrasound to check for a DVT. How is this treated? Treatment for this condition depends on many factors, such as the cause of your PE, your risk for bleeding or developing more clots, and other medical conditions you may have. Treatment aims to stop blood clots from forming or growing larger. In some cases, treatment may be aimed at breaking apart or removing the blood clot. Treatment may include: ? Medicines, such as: ? Blood thinning medicines, also called anticoagulants, to stop clots from forming and growing. ? Medicines that break apart clots (fibrinolytics). ? Procedures, such as: ? Using a flexible tube to remove a blood clot (embolectomy) or to deliver medicine to destroy it (catheter-directed thrombolysis). ? Surgery to remove the clot (surgical embolectomy). This is rare. You may need a combination of immediate, long-term, and extended treatments. Your treatment may continue for several months (maintenance therapy) or longer depending on your medical conditions. You and your health care provider will work together to choose the treatment program that is best for you. Follow these instructions at home: Medicines ? Take xzjs-ilx-xkviqbs and prescription medicines only as told by your health care provider. ? If you are taking blood thinners: ? Talk with your health care provider before you take any medicines that contain aspirin or NSAIDs, such as ibuprofen. These medicines increase your risk for dangerous bleeding. ? Take your medicine exactly as told, at the same time every day. ? Avoid activities that could cause injury or bruising, and follow instructions about how to prevent falls. ? Wear a medical alert bracelet or carry a card that lists what medicines you take. ? Understand what foods and drugs interact with any medicines that you are taking. General instructions ? Ask your health care provider when you may return to your normal activities. Avoid sitting or lyingfor a long time without moving. ? Maintain a healthy weight. Ask your health care provider what weight is healthy for you. ? Do not use any products that contain nicotine or tobacco. These products include cigarettes, chewing tobacco, and vaping devices, such as e-cigarettes. If you need help quitting, ask your health careprovider. ? Talk with your health care provider about any travel plans. It is important to make sure that you are still able to take your medicine while traveling. ? Keep all follow-up visits. This is important. Where to find more information ? [place] Lung Association: www.lung.org ? Centers for Disease Control and Prevention: www.cdc.gov Contact a health care provider if: ? You missed a dose of your blood thinner medicine. ? You have a fever. Get help right away if: ? You have: ? New or increased pain, swelling, warmth, or redness in an arm or leg. ? Shortness of breath that gets worse during activity or at rest. ? Worsening chest pain. ? A rapid or irregular heartbeat. ? A severe headache. ? Vision changes. ? A serious fall or accident, or you hit your head. ? Blood in your vomit, stool, or urine. ? A cut that will not stop bleeding. ? You cough up blood. ? You feel light-headed or dizzy, and that feeling does not go away. ? You cannot move your arms or legs. ? You are confused or have memory loss. These symptoms may represent a serious problem that is an emergency. Do not wait to see if the symptoms will go away. Get medical help right away. Call your local emergency services (911 in the [place] Do not drive yourself to the hospital. Summary ? A pulmonary embolism (PE) is a serious and potentially life-threatening condition. It happens when a blood clot from one part of the body travels to the arteries of the lung, causing a sudden blockage or decrease of blood flow to the lungs. This may result in shortness of breath, chest pain, dizziness, and fainting. ? Treatments for this condition usually include medicines to thin your blood (anticoagulants) or medicines to break apart blood clots. ? If you are given blood thinners, take your medicine exactly as told by your health care provider, at the same time every day. This is important. ? Understand what foods and drugs interact with any medicines that you are taking. ? If you have signs of PE or DVT, call your local emergency services (911 in the [place] This information is not intended to replace advice given to you by your health care provider. Make sure you discuss any questions you have with your health care provider. Document Revised: 08/07/2021 Document Reviewed: 08/07/2021 Apptive Patient Education ?? 2022 [employer] ([employer]). Tests Performed Lab Test Name Test Result Date/Time WBC 6.0 x10^3/mcL 03/21/2024 19:27 EDT RBC 3.9 x10^6/mcL 03/21/2024 19:27 EDT Hgb 12.2 g/dL 03/21/2024 19:27 EDT Hct 34.7 % 03/21/2024 19:27 EDT MCV 89.4 fL 03/21/2024 19:27 EDT MCH 31.4 pg 03/21/2024 19:27 EDT MCHC 35.2 g/dL 03/21/2024 19:27 EDT RDW-CV 13.9 % 03/21/2024 19:27 EDT Platelets 268 x10^3/mcL 03/21/2024 19:27 EDT Neutro Auto 55.8 % 03/21/2024 19:27 EDT Lymph Auto 33.3 % 03/21/2024 19:27 EDT Solano Auto 8.4 % 03/21/2024 19:27 EDT Eos, Auto 1.7 % 03/21/2024 19:27 EDT Basophil Auto 0.3 % 03/21/2024 19:27 EDT Imm Gran Auto 0.5 % 03/21/2024 19:27 EDT Neutro Absolute 3.4 x10^3/mcL 03/21/2024 19:27 EDT Slide Review Not Indicated 03/21/2024 19:27 EDT D Dimer, (Quant.) 0.42 mg/L 03/21/2024 19:27 EDT Sodium Level 132 mmol/L 03/21/2024 19:27 EDT Potassium Level 3.6 mmol/L 03/21/2024 19:27 EDT Chloride Level 96 mmol/L 03/21/2024 19:27 EDT CO2 29 mmol/L 03/21/2024 19:27 EDT Alk Phos 99 unit/L 03/21/2024 19:27 EDT AST 23 unit/L 03/21/2024 19:27 EDT ALT 27 unit/L 03/21/2024 19:27 EDT BUN 19 mg/dL 03/21/2024 19:27 EDT Glucose Level 116 mg/dL 03/21/2024 19:27 EDT Creatinine Level 0.88 mg/dL 03/21/2024 19:27 EDT eGFR AA 66 03/21/2024 19:27 EDT eGFR Non-AA 66 03/21/2024 19:27 EDT Calcium Level 9.0 mg/dL 03/21/2024 19:27 EDT Protein Total 6.2 g/dL 03/21/2024 19:27 EDT Albumin Level 3.2 g/dL 03/21/2024 19:27 EDT Bilirubin Total 0.3 mg/dL 03/21/2024 19:27 EDT Troponin-I 9.7 pg/mL 03/21/2024 19:27 EDT NT-proBNP 125 pg/mL 03/21/2024 19:27 EDT Patient/Ice Skating Instructor Signature Patient Name:FUNMI AMEZCUA Tim I have received this information and my questions have been answered. Patient/Ice Skating Instructor Name: Patient/Ice Skating Instructor Signature: Relationship to Patient: Witness Name/Signature: Date: Electronically Signed on: 03/21/2024 20:18 EDTSigned by:FRANCIE Discharge summary * Jp Bermudez J: PERFORM Event Display: Discharge Summary Authored Date: [id number] Patient Care team information Care Team Personnel Name: Jade Stewart NP Position: Physician Member Role: Informed Provider Address: Address: [address] [place] [address], [place] [address] [place] Care Team Related Persons Name: GEO AMEZCUA Address: [address], [place] [id number] Address: [facility] Name: DOMINGO MUNROE
--- OUTSIDE RECORDS SUMMARY | 2024-04-12 15:14 | XMS_ITS | Encounter Summary ---
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 Procedures PRO ARTHRODESIS SACROILIAC JOINT PERCUTANEOUS ARTHRODESIS,SACROILIAC JOINT FUSION MODIFIER MEDTRONIC - NAVIGATION / STEALTH MODIFIER [employer]TRONIC - RIALTO Referral ID Status Reason Start Date Expiration Date Visits Re quested Visits Authorized [id number] 1 1 Encounter Details Date Type Department Care Team (Late st Contact Info) Description 05/12/2021 12:08 PM EDT - 05/12/2021 2:06 PM EDT [facility] [address] [place] [address] Jerome Fontanez MD [address] [place] [address] ARTHRODESIS,SACROILIAC JOINT FUSION (WRVU 12.13) Social History Tobacco Use Types Packs/Day Years [...] Sign Reading Time Taken Comments Blood Pressure 157/87 05/12/2021 12:08 PM EDT Pulse 75 05/12/2021 10:43 AM EDT Temperature 37 ??C (98.6 ??F) 05/12/2021 10:43 AM EDT Respiratory Rate 16 05/12/2021 10:43 AM EDT Oxygen Saturation 99% 05/12/2021 10:43 AM EDT Inhaled Oxygen Concentration - - Weight [...] post-operative follow up appointment with your surgeon/physician???s junior administrative assistant scheduled. If you have any questions, [...] to stop taking it. ??? Only take rxca-zzt-cbrtibu or prescription medicine for pain, discomfort or [...] ??? [place] QUITLINE: ??? [place] QUITLINE: ??? [email or web address] If you smoke, it is recommended that you stop now! MAKE SURE YOU: ??? Understand these instructions. ??? Will seek medical care if you are feeling poor, or get worse. ??? Will call the surgeon???s office with any questions or concerns at : [phone] ??? Nursing information only: ??? Original document [...] as needed fluticasone propionate (FLONASE) 50 mcg/actuation [place], Suspension 2 sprays by Each Nare route [...] Fontanez MD - 05/12/2021 1:54 PM EDT [facility] [place] [address] Patient Name: Jigna Espinoza : [id number] MR#: [id number] Case Date: 05/12/2021 Case Scheduled Time: 1208 Surgeon: Surgeon(s) and Role: * Jerome Fontanez MD - Primary * Jnaee Stewart PA - Physician Equity Research Analyst Preoperative diagnosis: LEFT SIJD Postoperative diagnosis: LEFT SIJD Actual procedure: Left sacroiliac joint instrumented fusion using computer- assisted stereotactic volumetric image guidance (Stealth). Use of the Bloomfield screw system. Use of bone morphogenic protein [...] superior to the PSIS. We mounted the LiveBidalth arc. We obtained an intraoperative CT scan and fed this data into the [employer] station. We planned our screw trajectories. We then implanted 2 screws using the following algorithm: First the entry points are identified visually and on Stealth. Using an image guided all tip tap a commercial drone pilot hole is created along the course of the screw trajectory. The tap is withdrawn and the hole palpated to ensure nounexpected breach of cortex. Next the Bloomfield bone harvest device and Is utilized under live image guidance down the commercial drone pilot hole. The tap is withdrawn and cleaned of its bone harvest. This is then implanted into the central channel of the Bloomfield screw. Bone morphogenic protein sponges also utilized [...] the duration of the operative session. The junior administrative assistant adequately prepped the operative site and [...] EDT LEFT SIJD Arthrodesis Sacroiliac Joint Percutaneous (01275) 05/12/2021 1:29 PM EDT LEFT SIJD IMPLANTABLE [...] who have questions please contact the health health care facilities inspector that requested your imaging first. ? Electronically signed by: Kunal Shepherd MD, [facility] ([phone]), at 05/12/2021 2:56 PM Narrative 05/12/2021 2:56 [...] patients who have questions please contactthe health health care facilities inspector that requested your imaging first. Electronically signed by: Kunal Shepherd MD, [facility]([phone]), at 05/12/2021 2:56 PM Jerome Fontanez MD IMG FLUORO ORDERABLE S * SCAN DOC: IMPLANTABLE DEVICES (05/12/2021 12:00 AM EDT) Unknown MEDIA MGR SCAN EXT O RDR/RSLT documented in this encounter Visit Diagnoses Not on filedocumented in this encounter Administered Medications Inactive Administered Medications - up to 3 most recent administrations Medication Order MAR Action Action Date Dose Rate Site BUpivacaine (pf) (Marcaine) (5 mg/mL) 0.5% injection ONCE PRN, Starting on Tue05/12/21 at 1348, Until Tue05/12/21 at 1609, Intra-Operative (Intra-Procedure), Routine Given 05/12/2021 1:48 PM EDT 10 mLs 19- Surgical Site lactated ringers infusion 1,000 mL, at [...] MD) documented in this encounter Care Teams Senior Estimator Relationship Specialty Start Date End Date Ritu Bolaños APRN [address] [place] [id number] PCP - General 05/07/15 02/03/22 documented as of this encounter
--- OUTSIDE RECORDS SUMMARY | 2024-04-12 15:14 | XMS_ITS | Clinical Summary ---
Author Organization [facility] Address [facility] [place] [address] Care Team Providers Care Plating And Point Assembly Supervisor Name Role Phone Roma Magaña MD Primary Care Provider Allergies Active Allergy Reactions Criticality Noted Date Comments Codeine Nausea Only Medium Hydrocodone Nausea Only Medium 06/11/2019 Hydromorphone Nausea Only Medium 06/11/2019 Ketorolac Nausea And Vomiting, Other (See Comments) Medium 09/28/2018 black stools Tramadol Nausea Only Medium 06/11/2019 Medications Medication Sig Dispensed Refills Start Date End Date Status albuterol (PROVENTIL HFA) 90 mcg/actuation HFA Aerosol Inhaler 2 puffs every 4 hours as needed. Active albuterol (PROVENTIL) 2.5 mg /3 mL (0.083 %) Solution for NebulizationIndic ations:every 4 to 6 hours as needed Take 2.5 mg by nebulization. Indications: every 4 to 6 hours as needed Active fluticasone propionate (FLONASE) 50 mcg/actuation [place], Suspension 2 sprays by Each Nare route nightly. Active Magnesium Oxide 250 mg magnesium Tablet Take 2 tablets by mouth daily. Active multivitamin (THERAGRAN) Tablet Take 1 tablet by mouth daily. Active potassium chloride (K-DUR/KLOR-CON) 10 mEq Tablet Sustained Release Take 10 mEq by mouth daily. 0 04/21/2019 Active sertraline (ZOLOFT) 50 mg TabletIndications :Takes around 2pm Take 1 tablet by mouth every morning. Indications: Takes around 2pm 0 04/10/2019 Active celecoxib (CELEBREX) 200 mg Capsule Take 200 mg by mouth every morning. 1 05/03/2019 Active triamterene-hydro CHLOROthiazide (Dyazide) 37.5-25 mg Capsule Take 2 capsules by mouth every morning. Active cetirizine (ZyrTEC) 10 mg TabletIndications :seasonal allergic rhinitis Take 10 mg by mouth daily as needed for Allergies. Indications: seasonal runny nose Active senna (Senokot) 8.6 mg TabletIndications :constipation,PT STATES SHE TAKES EIGHT TABS Take 8 tablets by mouth daily. Indications: constipation, PT STATES SHE TAKES EIGHT TABS Active ondansetron ODT (Zofran-ODT) 4 mg Tablet, Rapid Dissolve Place 1 tablet (4mg) on top of tongue, allow to disolve and swallow Q6H PRN Nausea and voimitting 20 tablet 01/23/2020 Active Trelegy Ellipta 200-62.5-25 mcg Disk with Device Inhale 1 puff into the lungs daily. 09/20/2020 Active mepolizumab (Nucala) Recon Soln injection Inject 1 each subcutaneously every 30 days. Active diazePAM (Valium) 5 mg TabletIndications :Claustrophobia,S /P hip arthroscopy,Chron ic right hip pain 10 mg by mouth 45 minutes prior to MRI. May take additional 5 mg by mouth at time of MRI. 3 tablet 01/02/2021 Active Nucala 100 mg/mL Auto-InjectorIndi cations:next dose due 05/27/21 Inject 100 mg subcutaneously every 30 days. Indications: next dose due 05/27/21 02/26/2021 Active Breo Ellipta 200-25 mcg/dose Disk with Device Inhale 1 puff into the lungs every morning. 03/20/2021 Active polyethylene glycoL (Miralax) 17 gram Powder in PacketIndications :constipation Take 17 g by mouth daily as needed (Bowel health). Indications: constipation Active acetaminophen-cod eine (Tylenol #3) 300-30 mg Tablet Take 1-2 tablets by mouth every 6 hours as needed for Pain. 15 tablet 05/12/2021 Active Active Problems Problem Noted Date Diagnosed Date S/P hip arthroscopy; right g reater troch bursectomy; 01/23/2020; Dr. Cox 01/23/2020 Hypokalemia 11/29/2019 Hypotension 06/19/2019 Claustrophobia 06/11/2019 Alopecia 02/28/2019 Anxiety 02/28/2019 Arthritis 02/28/2019 Asthma 02/28/2019 Osteoarthrosis 02/28/2019 Chronic constipation 02/28/2019 Depressive disorder 02/28/2019 Fatigue 02/28/2019 Gastroesophageal reflux disease 02/28/2019 Hyperlipidemia 02/28/2019 Hypertension 02/28/2019 Osteoporosis 02/28/2019 Neck pain 02/28/2019 Leg length discrepancy 02/28/2019 Vertiginous syndrome and labyrinthine disorder 0 02/28/2019 Seborrheic keratosis 02/28/2019 Sacroiliac joint dysfunction of both sides 02/28 Lumbar spinal stenosis 02/28/2019 Breast calcifications 02/28/2019 Pain in right hip 01/30/2019 Resolved Problems Problem Noted Date Diagnosed Date Resolved Date Status post total hip replacement, right 06/18/2019 01/10/2020 Allergic rhinitis 02/28/2019 07/23/2019 Basal cell carcinoma of skin 02/28/2019 07/23/2019 Hand pain, right 02/28/2019 01/10/2020 L3 vertebral fracture 02/28/20192019 Osteopenia 02/28/2019 07/23/2019 Rupture of biceps tendon 02/28/2019 S/P lumbar fusion 02/28/2019 01/10/2020 Pain in joint, pelvic region and thigh 02/07/2017 01/10/2020 Encounters Date Type Department Care Team Description 04/03/2024 9:30 AM EDT - 04/03/2024 11:59 PM EDT Hospital [place] [address] Adal Phillips MD Pulmonary embolism without acute cor pulmonale, unspecified chronicity, unspecified pulmonary embolism type; Other specified abnormal findings of blood chemistry Discharge Disposition: Home from Last 3 Months Immunizations Name Administration Dates Next Due Influenza Adjunated (FluAd) Trivalent, PF 65yrs+ 05/20/2019 Influenza PF, Split 05/18/2018,05/07/2016 Influenza Quadrivalent (FluAd) Adjuvanted 2019 Family History Medical History Relation Comments Lymphoma Brother Prostate Cancer Father Alzheimer Disease Mother Breast Cancer Neg Hx Relation Status Comments Brother Father Mother Social History Tobacco Use Types Packs/Day Years [...] PM EST Sexual Orientation Not on file Last Filed Vital Signs Vital Sign Reading [...] Mass Index 23.17 05/12/2021 10:43 AM EDT Plan of Treatment Health Maintenance Due Date Last Done Comments Pneumoccocal Vaccine: 65+ (1 of 2 - PCV) 1950 Hepatitis C Screening 1962 Tdap adult 1963 Tetanus vaccine 1963 Zoster vaccine (1 of 2) 1994 Advance Directive 1999 Bone Density Scan 2009 Covid-19 Vaccine (5 - 2022-2 4 season) 2023 09/05/2022, 08/21/2021, 12/03/2020, Additional history exists Influenza (Flu) vaccine (1 o f 1 - Influenza standard series) 05/20/2024 05/31/2020, 05/20/2019, 05/18/2018, Additional history exists Breast Cancer screening Discontinued 02/22/20, 02/07/2019, 10/28/2017, Additional history exists Medical Devices Implanted Type Area Linen Grader Device Identifier Shelf Expiration Date Model / Serial / Lot Cup,Hip,Aceta b,Bernardo,R3,3h, 50mm ([id number]) (Autoreq) - [id number] Implanted:Qty : 1 on 06/19/2019 by Eric Soto MD at [facility] IMPLANTS Right: Hip [employer] - HAM[employer]D NEPH 03/04/2029 [id number] / / [id number] Liner,R3,0d,X lpe,Acetb,32x 50mm ([id number]) (Autoreq) - [id number] Implanted:Qty : 1 on 06/19/2019 by Eric Soto MD at [facility] IMPLANTS Right: Hip [employer] - [employer] NEPH 04/15/2029 [id number] / / [id number] Polarstem Cone Wcol 1214 Sz3 ([id number]) ([employer]oreq) - [id number] Implanted:Qty : 1 on 06/19/2019 by Eric Soto MD at [facility] IMPLANTS Right: Hip [employer] - [employer]PH 03/14/2026 [id number] / / [id number] Head,Fmrl,Oxi n,+0mm,12/14, 32mm ([id number]) ([employer]oreq) - [id number] Implanted:Qty : 1 on 06/19/2019 by Eric Soto MD at [facility] IMPLANTS Right: Hip [employer] - [employer] NEPH 04/06/2029 [id number] / / [id number] Screw Spinal [id number] Sacroiliac Thread Sld Ti ([id number]) ([employer]oreq) - [id number] Implanted:Qty : 1 on 05/12/2021 by Jerome Fontanez MD at [facility] IMPLANTS Left: Sacrum [employer] - [employer] 12/04/2027 [id number] / / [id number] Screw Spinal [id number] Sacroiliac Thread Sld Ti ([id number]) ([employer]oreq) - [id number] Implanted:Qty : 1 on 05/12/2021 by Jerome Fontanez MD at [facility] IMPLANTS Left: Sacrum [employer] 08/01/2028 [id number] / / [id number] Kit Graft Bone Sponge 2.8cc Bmp Syringe Sm Granules Infuse ([id number]) ([employer]oreq) - [id number] Implanted:Qty : 1 on 05/12/2021 by Jerome Fontanez MD at [facility] IMPLANTS Left: Sacrum [employer] 01/17/2023 [id number] / / [id number] Explanted Type Area Linen Grader Device Identifier Shelf Expiration Date Model / Serial / Lot Pin Fixation 100mm Ant Cerv Jeana Walker ([id number]) (Autoreq) - [id number] Explanted:Qty : 1 on 05/12/2021 by Jerome Fontanez MD at [facility] IMPLANTS Left: Sacrum [employer] - [employer] 06/28/2023 [id number] / / [id number] Procedures Procedure Name Priority Date/Time Associated Diagnosis Comments ECHO COMPLETE Routine 04/03/2024 1:21 PM EDT Pulmonary embolism without acute cor pulmonale, unspecified chronicity, unspecified pulmonary embolism type Other specified abnormal findings of blood chemistry MAMMO SCREENING CAD AND WALDEMAR BILATERAL Routine 02/22/2020 11:19 AM EDT Encounter for screening mammogram for breast cancer from Last 3 Months or Most Recently Relevant to Health Maintenance Results * ECHO COMPLETE (04/03/2024 1:21 PM EDT) Anatomical Region Laterality Modality Other 04/03/2024 8:00 AM EDT Narrative 04/03/2024 2:02 PM EDT 1 [place] [address] ? Echocardiogram Report Name: FUNMI AMEZCUA ? Study Date: 04/03/2024 08:00 AMBP: 120/74 mmHg ? Patient Location: : 1945 ? Height: 163 cm ? Account: [id number] Age: 79 yrs ? Weight: 58 kg Gender: Female ?BSA: 1.6 m2 Ordering Physician: VISHAL Referring Physician: ADAL PHILLIPS Performed By: Elaine Ibarra RDCS Reason For Study: Elevated d-dimer. Pulmonary embolism without acute cor pulmonale. Exam Location: [facility]. Interpretation Summary -Left ventricle is of normal size. Wall thickness is moderately increased. Left ventricular size and systolic function are normal. Left ventricular ejection fraction is estimated visually at 65-70%. There are no segmental wall motion abnormalities. -The right ventricle is of normal size. Right ventricular systolic function is normal. RV free wall strain is normal. RSVP is 26 mmHg. -There is moderate tricuspid regurgitation. -No prior study available for comparison. Procedure Complete-[id number]. Satisfactory quality. There is normal sinus rhythm. Left Ventricle Left ventricle is of normal size. Wall thickness is moderately increased. There is no left ventricular outflow tract obstruction. Left ventricular size and systolic function are normal. Left ventricular ejection fraction is estimated visually at 65-70%. There are no segmental wall motion abnormalities. Right Ventricle The right ventricle is of normal size. Right ventricular systolic function is normal. RV free wall strain is normal. Left Atrium The left atrium is normal. No abnormality of the interatrial septum is identified. Right Atrium The right atrium is mildly dilated. Aortic Valve The aortic valve is tricuspid. The noncoronary cusp of the aortic valve is moderately thickened. There is aortic valve sclerosis without stenosis. There is no aortic regurgitation. Mitral Valve The mitral valve leaflets are thickened. There is no mitral stenosis. There is trivial mitral regurgitation. Tricuspid Valve The tricuspid valve is structurally normal. Mild prolapse of the posterior leaflet of the tricuspid valve. There is no tricuspid stenosis. There is moderate tricuspid regurgitation. Pulmonic Valve The pulmonic valve appears to be structurally normal. There is no valvular pulmonic stenosis. There is trace pulmonic valve regurgitation. Great Arteries The aortic root is of normal size. No abnormalities are identified. Ascending aorta is normal in size. No abnormalities of the pulmonary artery are identified. Venous Inferior vena cava is normal in size. Inferior vena cava collapse greater than 50% with respiration. Pericardium/Pleural The pericardium appears normal. Hemodynamics There is Grade I LV diastolic dysfunction (abnormal relaxation with normal left ventricular filling pressure). The peak right ventricular systolic pressure is 26.4 mmHg . The right ventricular systolic pressure is normal. Ejection Fraction ?2D Measurements ? Volumes LV Biplane EF: 69.0 % ? IVSd: 1.6 cm ? LA Volume Index: ?LVIDd: 2.8 cm ?LVIDs: 1.4 cm ?20.1 ml/m2 ?LVPWd: 1.2 cm ?EDV Biplane: 49.5 ml ? EDV BP Indexed: ?RWT: 0.84 {ratio} ?30.5 ml/m2 ?LV mass(C)d: 131.2 grams ? ESV Biplane: 15.3 ml ?LV mass(C)dI: 81.0 grams/m2 ?Ao root diam: 3.4 cm ? ESV BP Indexed: 9.5 ml/m2 ?Ao root diam index: 2.1 ?SV(LVOT): 84.8 ml ?asc Aorta Diam: 3.1 cm ? LV Stroke Volume: 84.8 ml ?LVOT diam: 2.2 cm ?SI(LVOT): 52.4 ml/m2 ?TAPSE_phl: 2.4 cm Doppler ?3D/Strain/TomTec LV V1 VTI: 22.7 cm ?LV GLS (S3P): -14.5 % LVOT max Velocity: 117.1 cm/sec MV E max hernan: 74.1 cm/sec MV A max hernan: 90.2 cm/sec MV E/A: 0.82 MV dec time: 0.32 sec MV mean P.6 mmHg Lat Peak E' Hernan: 6.5 cm/sec E/e' (lat): 11.4 Med Peak E' Hernan: 5.6 cm/sec E/e' (med): 13.2 E/e' Average: 12.3 ZAKIYA traced: 2.1 cm2 TR max hernan: 240.8 cm/sec RVSP(TR): 26.4 mmHg Tricuspid Regurgitation Volume: 29.5 ml I ?WMSI = 1.00 ? % Normal = 100 ?Segments ??Size X - Cannot ?2 - ?4 - ?1-2 ? small Interpret ?1 - Normal ?? Hypokinetic 3 - Akinetic Dyskinetic ?? 3-5 ? moderate 5 - ? 6-14 ?large Aneurysmal ?15-16 ?? diffuse Procedure Note Aidan Del Rio MD - 04/03/2024 [address] [place] [id number] Echocardiogram Report Name: FUNMI AMEZCUA Study Date: 04/03/2024 08:00 AMBP:120/74 mmHg Patient Location: : 1945 Height: 163 cmAccount: [id number] Age: 79 yrs Weight: 58 kg Gender: Female BSA: 1.6 m2 Ordering Physician: VISHAL Referring Physician: ADAL PHILLIPS Performed By: Elaine Ibarra RDCS Reason For Study: Elevated d-dimer. Pulmonary embolism without acute cor pulmonale. Exam Location: [facility]. Interpretation Summary -Left ventricle is of normal size. Wall thickness is moderately increased.Left ventricular size and systolic function are normal. Left ventricularejection fraction is estimated visually at 65-70%. There are no segmental wallmotion abnormalities. -The right ventricle is of normal size. Right ventricular systolicfunction is normal. RV free wall strain is normal. RSVP is 26 mmHg. -There is moderate tricuspid regurgitation. -No prior study available for comparison. Procedure Complete-[id number]. Satisfactory quality. There is normal sinus rhythm. Left Ventricle Left ventricle is of normal size. Wall thickness is moderately increased.There is no left ventricular outflow tract obstruction. Left ventricular size andsystolic function are normal. Left ventricular ejection fraction is estimatedvisually at 65-70%. There are no segmental wall motion abnormalities. Right Ventricle The right ventricle is of normal size. Right ventricular systolic functionis normal. RV free wall strain is normal. Left Atrium The left atrium is normal. No abnormality of the interatrial septum isidentified. Right Atrium The right atrium is mildly dilated. Aortic Valve The aortic valve is tricuspid. The noncoronary cusp of the aortic valveis moderately thickened. There is aortic valve sclerosis without stenosis.There is no aortic regurgitation. Mitral Valve The mitral valve leaflets are thickened. There is no mitral stenosis.There is trivial mitral regurgitation. Tricuspid Valve The tricuspid valve is structurally normal. Mild prolapse of the posteriorleaflet of the tricuspid valve. There is no tricuspid stenosis. There ismoderate tricuspid regurgitation. Pulmonic Valve The pulmonic valve appears to be structurally normal. There is novalvular pulmonic stenosis. There is trace pulmonic valve regurgitation. Great Arteries The aortic root is of normal size. No abnormalities are identified.Ascending aorta is normal in size. No abnormalities of the pulmonary artery areidentified. Venous Inferior vena cava is normal in size. Inferior vena cava collapse greaterthan 50% with respiration. Pericardium/Pleural The pericardium appears normal. Hemodynamics There is Grade I LV diastolic dysfunction (abnormal relaxation with normalleft ventricular filling pressure). The peak right ventricular systolicpressure is 26.4 mmHg . The right ventricular systolic pressure is normal. Ejection Fraction 2D Measurements Volumes LV Biplane EF: 69.0 % IVSd: 1.6 cm LA VolumeIndex: LVIDd: 2.8 cm LVIDs: 1.4 cm 20.1 ml/m2 LVPWd: 1.2 cm EDV Biplane: 49.5ml EDV BP Indexed: RWT: 0.84 {ratio} 30.5 ml/m2 LV mass(C)d: 131.2 grams ESV Biplane: 15.3ml LV mass(C)dI: 81.0 grams/m2 Ao root diam: 3.4 cm ESV BP Indexed:9.5 ml/m2 Ao root diam index: 2.1 SV(LVOT): 84.8ml asc Aorta Diam: 3.1 cm LV Stroke Volume:84.8 ml LVOT diam: 2.2 cm SI(LVOT): 52.4ml/m2 TAPSE_phl: 2.4 cm Doppler 3D/Strain/TomTec LV V1 VTI: 22.7 cm LV GLS (S3P): -14.5 % LVOT max Velocity: 117.1 cm/sec MV E max hernan: 74.1 cm/sec MV A max hernan: 90.2 cm/sec MV E/A: 0.82 MV dec time: 0.32 sec MV mean P.6 mmHg Lat Peak E' Hernan: 6.5 cm/sec E/e' (lat): 11.4 Med Peak E' Hernan: 5.6 cm/sec E/e' (med): 13.2 E/e' Average: 12.3 ZAKIYA traced: 2.1 cm2 TR max hernan: 240.8 cm/sec RVSP(TR): 26.4 mmHg Tricuspid Regurgitation Volume: 29.5 ml I WMSI = 1.00 % Normal = 100 SegmentsSize X - Cannot 2 - 4 - 1-2small Interpret 1 - Normal Hypokinetic 3 - Akinetic Dyskinetic 3-5moderate 5 - 6-14large Aneurysmal 15-16diffuse Adal Phillips MD ECHO ORDERABLES * Mammo Screening Cad and Waldemar Bilateral (02/22/2020 11:19 AM EDT) Anatomical Region Laterality Modality Breast Bilateral Mammography Narrative 02/22/2020 11:27 AM EDT BILATERAL MAMMOGRAPHY REASON FOR EXAM: Screening TECHNIQUE: CC and MLO views were obtained of each breast using standard 2-D mammography as well as 3-D tomosynthesis. Computer aided detection was used. This is compared with prior images. FINDINGS: There are scattered areas of fibroglandular density. There are no suspicious microcalcifications, masses, or areas of distortion. The pattern is stable. CONCLUSION: No mammographic evidence of malignancy. RECOMMENDATION: Regular screening mammograms starting between age 40 and 50 reduces the risk of from breast cancer. All screening tests have both risks and benefits. These risks and benefits should be assessed for each individual patient through discussion with their provider to determine their preferred breast cancer screening schedule. Women should report any breast changes to a health care provider right away. Some women, because of their family history, a genetic tendency, or other factors, should be screened with annual breast MRI as well as with mammograms. (The number of women who fall into this category is very small). Patients and health care providers should discuss each patient? s history to decide if earlier screening and/or breast MRI are appropriate. Screening should continue as long as a woman is in good health and is expected to live 10 years or longer. Screening mammography may not detect 10-15% of breast cancers. A result letter has been sent to this patient by [facility]. 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 04/04/2019 9:36 AM Pablo Alexis * Attempt Cardiopulmonary Resuscitation - Inpatient (Latest Code Status on File) Date Activated Date Inactivated Comments 05/12/2021 12:38 PM 05/12/2021 6:10 PM Question Answer Comments Code Status decision made by: Patient * Full Code Date Activated Date Inactivated Comments 06/19/2019 10:44 PM 06/21/2019 6:43 PM Question Answer Comments Does patient have capacity to make decision: Yes * Full Code Date Activated Date Inactivated Comments 06/18/2019 3:12 PM 06/19/2019 8:36 PM Question Answer Comments Does patient have capacity to make decision: Yes Care Teams Plating And Point Assembly Supervisor Relationship Specialty Start Date End Date Roma Magaña MD [address] [place] [address] PCP - General 02/04/22
--- OUTSIDE RECORDS SUMMARY | 2024-04-12 15:14 | XMS_ITS | Continuity of Care Document ---
Author Organization [facility] Address [address] [place] [address] Care Team Providers Care Tool Room Machinist Name Role Phone Jade Stewart Primary Care Physician Encounter [facility] Date(s): 03/21/24 - 03/21/[address] [address] Encounter Diagnosis Elevated d-dimer(Discharge Diagnosis) - 03/21/24 Discharge Disposition: Home or Self Care Attending [...] wheezing, # 18 g, 3 Refill(s), Pharmacy: [facility] #[id number], 160.02, cm, 08/11/22 18:03:00 EST, Height/Length Dosing, 61.23, kg, 08/11/22 18:03:00 EST, Weight Dosing Start Date: 04/06/23 Status: Ordered celecoxib 200 mg oral capsule 200 mg = 1 cap, Oral, Daily, # 90 cap, 3 Refill(s), Pharmacy: [facility] #[id number], 160.02, cm, 08/11/22 18:03:00 EST, Height/Length Dosing, 61.23, kg, 08/11/22 18:03:00 EST, Weight Dosing Start Date: 08/29/23 Status: Ordered Co-Q10 100 mg oral capsule 100 mg = 1 cap, Oral, Daily, # 30 cap, 0 Refill(s) Start Date: 03/15/22 Status: Ordered fluticasone 50 mcg/inh nasal spray 1 sprays, !-Nasal, BID, SHAKE LIQUID., # 48 g, 0 Refill(s), Pharmacy: [facility] #[id number], 162.56, cm, 11/08/23 11:40:00 EST, Height, 58.7, [...] days, # 1 EA, 11 Refill(s), Pharmacy: [facility], 160.02, cm, 08/11/22 18:03:00 EST, Height/Length Dosing, 61.23, kg, 08/11/22 18:03:00 EST, Weight Dosing Start Date: 09/17/22 Status: Ordered potassium chloride 10 mEq oral capsule, extended release 20 mEq = 2 cap, Oral, Daily, # 180 cap, 3 Refill(s), Pharmacy: [facility] #[id number], 160.02,cm, 08/11/22 18:03:00 EST, Height/Length Dosing, 61.23, kg, 08/11/22 18:03:00 EST, Weight Dosing Start Date: 03/18/23 Stop Date: 03/12/24 Status: Ordered predniSONE 10 mg oral tablet 10 mg = 1 tab, Oral, Daily, # 30 tab, 0 Refill(s), Pharmacy: [facility] #[id number], 163, cm, 01/12/24 13:11:00 EDT, Height, 58, kg, 03/19/24 13:27:00 EDT, Weight Dosing Start Date: 03/19/24 Status: Ordered sertraline 50 mg oral tablet 50 mg = 1 tab, Oral, Daily, # 90 tab, 3 Refill(s), Pharmacy: [facility] #[id number], 160.02, cm, 08/11/22 18:03:00 EST, Height/Length Dosing, 61.23, kg, 08/11/22 18:03:00 EST, Weight Dosing Start Date: 03/18/23 Status: Ordered Trelegy Ellipta 200 mcg-62.5 mcg-25 mcg/inh inhalation powder 1 puffs, Inhale, Daily, for 360 days, # 3 EA, 6 Refill(s), Pharmacy: [facility] #[id number], 160.02, cm, 08/11/22 18:03:00 EST, Height/Length Dosing, 61.23, kg, 08/11/22 18:03:00 EST, Weight Dosing Start Date: 02/08/23 Status: Ordered triamterene-hydrochlorothiazide 37.5 mg-25 mg oral tablet 2 tab, Oral, Daily, # 90 tab, 0 Refill(s), Pharmacy: [facility] #[id number], 163, cm, 01/11/2413:11:00 EDT, Height, 59.7, kg, [...] 0 Refill(s), 04/11/24 10:26:00 PM CDT, Pharmacy: [id number], 163, cm, 01/12/24 13:11:00 EDT, [...] Physician Member Role: Informed Provider Address: Address: [address] [place] [id number] [place] Care Team Related Persons Name: GEO AMEZCUA Address: Home [address] [place] [id number] Address: [facility] Name: DOMINOG MUNROE
--- OUTSIDE RECORDS SUMMARY | 2024-04-12 15:14 | XMS_ITS | Encounter Summary ---
Author Organization [facility] [address] Care Team Providers Care Baker Biscuit Name Role Phone Ritu Bolaños RAEANN Primary Care Provider [phone] Encounter Details Date Type Department Care Team (Late st Contact Info) Description 05/05/2021 12:45 PM EDT Telephone Pre-Admission Testing at [facility] [place] [address] Social History Tobacco Use Types Packs/Day Years [...] on file documented as of this encounter Progress Notes * Shital Mayorga RN - 05/05/2021 1:00 PM EDTSummary: covid COVID-19 SCREENING: In the past 14 days, have you had any of the following symptoms: [] Fever (subjective or documented fever) [] Chills [] Cough [] Shortness of breath or difficulty breathing [] Fatigue [] Muscle or body aches [] Headache [] New loss of taste or smell [] Sore throat [] Nausea or vomiting [] Diarrhea [x]NONE OF THE ABOVE Vaccinated documented in this encounter Plan of Treatment Not on file documented as of this encounter Visit Diagnoses Not on filedocumented in this encounter Care Teams Baker Biscuit Relationship Specialty Start Date End Date Ritu Bolaños APRN [address] [place] [phone] PCP - General 05/07/15 02/03/22 documented as of this encounter
--- OUTSIDE RECORDS SUMMARY | 2024-04-12 15:14 | XMS_ITS | Continuity of Care Document ---
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 Name Role Phone Jade Stewart Primary Care Physician [phone] Encounter NCTY_[place] Date(s): 03/09/24 - 03/09/[address] [address] Encounter Diagnosis Cough(Discharge Diagnosis) - 03/09/24 Discharge Disposition: Home or Self Care Attending [...] wheezing, # 18 g, 3 Refill(s), Pharmacy: [facility] #[id number], 160.02, cm, 08/11/22 18:03:00 EST, Height/Length Dosing, 61.23, kg, 08/11/22 18:03:00 EST, Weight Dosing Start Date: 04/06/23 Status: Ordered amoxicillin-clavulanate 875 mg-125 mg oral tablet 1 tab, Oral, every 12 hr, # 20 tab, 0 Refill(s), Pharmacy: [facility] #[id number], 163, cm, 01/12/24 13:11:00 EDT, Height, 59.7, kg, 03/05/24 15:10:00 EDT, Weight Dosing Start Date: 03/05/24 Stop Date: 03/15/24 Status: Ordered azithromycin 250 mg oral tablet See Instruction, Oral, Daily, take 2 tabs on day 1 and 1 tabs on day 2-5, # 6 tab, 0 Refill(s), Pharmacy: [facility] #[id number], 163, cm, 01/12/24 13:11:00 EDT, Height, 59.7, kg, 03/05/24 15:10:00 EDT, Weight Dosing Start Date: 03/05/24 Status: Ordered benzonatate 200 mg oral capsule 200 mg = 1 cap, Oral, TID, PRN as needed for cough, # 30 cap, 0 Refill(s), [id number], 163, cm, 01/12/24 13:11:00 EDT, Height, 59.7, kg, 03/05/24 15:10:00 EDT, Weight Dosing Start Date: 03/05/24 Stop Date: 03/15/24 Status: Ordered celecoxib 200 mg oral capsule 200 mg = 1 cap, Oral, Daily, # 90 cap, 3 Refill(s), Pharmacy: [facility] #[id number], 160.02, cm, 08/11/22 18:03:00 EST, Height/Length Dosing, 61.23, kg, 08/11/22 18:03:00 EST, Weight Dosing Start Date: 08/29/23 Status: Ordered Co-Q10 100 mg oral capsule 100 mg = 1 cap, Oral, Daily, # 30 cap, 0 Refill(s) Start Date: 03/15/22 Status: Ordered fluticasone 50 mcg/inh nasal spray 1 sprays, !-Nasal, BID, SHAKE LIQUID., # 48 g, 0 Refill(s), Pharmacy: [facility] #[id number], 162.56, cm, 11/08/23 11:40:00 EST, Height, 58.7, [...] # 1 EA, 11 Refill(s), Pharmacy: [facility], 160.02, cm, 08/11/22 18:03:00 EST, Height/Length Dosing, 61.23, kg, 08/11/22 18:03:00 EST, Weight Dosing Start Date: 09/17/22 Status: Ordered potassium chloride 10 mEq oral capsule, extended release 20 mEq = 2 cap, Oral, Daily, # 180 cap, 3 Refill(s), Pharmacy: [facility] #[id number], 160.02,cm, 08/11/22 18:03:00 EST, Height/Length Dosing, 61.23, kg, 08/11/22 18:03:00 EST, Weight Dosing Start Date: 03/18/23 Stop Date: 03/12/24 Status: Ordered predniSONE 20 mg oral tablet 20 mg = 1 tab, Oral, BID, # 20 tab, 0 Refill(s), Pharmacy: [facility] #[id number], 163, cm, 01/12/24 13:11:00 EDT, Height, 59.7, kg, 03/05/24 15:10:00 EDT, Weight Dosing Start Date: 03/05/24 Status: Ordered sertraline 50 mg oral tablet 50 mg = 1 tab, Oral, Daily, # 90 tab, 3 Refill(s), Pharmacy: [facility] #[id number], 160.02, cm, 08/11/22 18:03:00 EST, Height/Length Dosing, 61.23, kg, 08/11/22 18:03:00 EST, Weight Dosing Start Date: 03/18/23 Status: Ordered Trelegy Ellipta 200 mcg-62.5 mcg-25 mcg/inh inhalation powder 1 puffs, Inhale, Daily, for 360 days, # 3 EA, 6 Refill(s), Pharmacy: [facility] #[id number], 160.02, cm, 08/11/22 18:03:00 EST, Height/Length Dosing, 61.23, kg, 08/11/22 18:03:00 EST, Weight Dosing Start Date: 02/08/23 Status: Ordered triamterene-hydrochlorothiazide 37.5 mg-25 mg oral tablet 2 tab, Oral, Daily, # 90 tab, 0 Refill(s), Pharmacy: [facility] #[id number], 163, cm, 01/11/2413:11:00 EDT, Height, 58.8, kg, [...] information Care Team Personnel Name: Jade Stewart PROGRAMMING DIRECTOR Position: Physician Member Role: Informed Provider Address: Address: [address] [place] [phone] [place] Care Team Related Persons Name: GEO AMEZCUA Address: Home [address] [place] [phone] Name: DOMINGO MUNROE
--- OUTSIDE RECORDS SUMMARY | 2024-04-12 15:14 | XMS_ITS | Encounter Summary ---
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 Name Role Phone Mami Ritu CARY Primary Care Provider [phone] Reason for Referral * Diagnostic Test (Routine) - Closed Specialty Diagnoses / Procedures Referred By Contac t Referred To Contact Radiology Diagnoses Chronic left SI joint pain Sacro-iliac pain Procedures CT Guided Injection SI Joint Adal Rutherford PA [address] [place] [address] [facility] [place] [address] Referral ID Status Reason Start Date Expiration Date V isits Requested Visits Authorized [id number] Closed Specialty Service Requested 02/25/2021 08/27/2022 1 1 Reason for Visit * Diagnostic Test (Routine) - Closed Specialty Diagnoses / Procedures Referred By Contac t Referred To Contact Radiology Diagnoses Chronic left SI joint pain Sacro-iliac pain Procedures CT Guided Injection SI Joint Adal Rutherford PA [address] [place] [address] [facility] [place] [address] Referral ID Status Reason Start Date Expiration Date V isits Requested Visits Authorized [id number] Closed Specialty Service Requested 02/25/2021 08/27/2022 1 1 Encounter Details Date Type Department Care Team (Latest Contact Info) Description 03/24/2021 10:45 AM EDT - 03/24/2021 11:59 PM EDT Hospital [place] [address] Adal Rutherford PA [address] [place] [address] Chronic left SI joint pain; Sacro-iliac pain Discharge Disposition: Home Social History Tobacco Use Types Packs/Day Years Used Date Smoking Tobacco: Former Cigarettes 0.5 25 1 945 - 7119 Smokeless Tobacco: Never Alcohol Use Standard Drinks/Week Comments Yes 0 (1 standard drink = 0.6 oz pur e alcohol) SELDOM Sex and Gender Information Value Date Recorded Sex Assigned at Not on file Gender Identity Female 09/25/2020 7:37 PM EST Sexual Orientation Not on file documented as of this encounter Medications at Time of Discharge Medication Sig Dispensed Refills Start Date End Date Nucala 100 mg/mL Auto-InjectorIndicat ions:next dose due 05/27/21 Inject 100 mg subcutaneously every 30 days. Indications: next dose due 05/27/21 02/26/2021 Breo Ellipta 200-25 mcg/dose Disk with Device Inhale 1 puff into the lungs every morning. 03/20/2021 diazePAM (Valium) 5 mg TabletIndications:Cl austrophobia,S/P hip arthroscopy,Chronic right hip pain 10 mg [...] 20 tablet 01/23/2020 cetirizine (ZyrTEC) 10 mg TabletIndications:se asonal allergic rhinitis Take 10 mg by mouth daily as needed for Allergies. Indications: seasonal runny nose senna (Senokot) 8.6 mg TabletIndications:co nstipation,PT STATES SHE TAKES EIGHT TABS Take 8 tablets by mouth daily. Indications: constipation, PT STATES SHE TAKES EIGHT TABS triamterene-hydroCHL OROthiazide (Dyazide) 37.5-25 mg Capsule Take 2 capsules by mouth every morning. potassium chloride (K-DUR/KLOR-CON) 10 mEq Tablet Sustained Release Take 10 mEq by mouth daily. 0 04/21/2019 sertraline (ZOLOFT) 50 mg TabletIndications:Ta kes around 2pm Take 1 tablet by mouth every morning. Indications: Takes around 2pm 0 04/10/2019 celecoxib (CELEBREX) 200 mg Capsule Take 200 mg by mouth every morning. 1 05/03/2019 albuterol (PROVENTIL HFA) 90 mcg/actuation HFA Aerosol Inhaler 2 puffs every 4 hours as needed. albuterol (PROVENTIL) 2.5 mg /3 mL (0.083 %) Solution for NebulizationIndicati ons:every 4 to 6 hours as needed Take 2.5 mg by nebulization. Indications: every 4 to 6 hours as needed fluticasone propionate (FLONASE) 50 mcg/actuation [place], Suspension 2 sprays by Each Nare route nightly. Magnesium Oxide 250 mg magnesium Tablet Take 2 tablets by mouth daily. multivitamin (THERAGRAN) Tablet Take 1 tablet by mouth daily. ubidecarenone/omega- 3/vit E (CO O-63-MHQNHCI E-FISH OIL ORAL) Take 1 tablet by mouth daily. 05/12/2021 documented as of this encounter Plan of Treatment Not on file documented as of this encounter Procedures Procedure Name Priority Date/Time Associated Diagnosis Comments CT GUIDED INJECTION SI JOINT Routine 03/24/2021 12:35 PM EDT Chronic left SI joint pain Sacro-iliac pain documented in this encounter Results * CT Guided Injection SI Joint (03/24/2021 12:35 PM EDT) Anatomical Region Laterality Modality Computed Tomogra phy Impressions 03/24/2021 1:[address]-guided left sacroiliac joint anesthetic and steroid injection. Resident: Dr. Savita MD Attending: Dr. Jasper MD I, Vitor Hutchinson MD, was present for critical portions of the procedure including site selection, needle placement, and was immediately available throughout. Preliminary report signed by: Jason Savita at 03/24/2021 12:47 PM I have personally reviewed the image(s) and the resident's interpretation and agree with the findings, Vitor Hutchinson MD at 03/24/2021 1:57 PM Thank you for letting us participate in the care of this patient. ??If you are a health care provider and have any questions regarding this report, please contact the number below. ??For patients who have questions please contact the health child care giver that requested your imaging first. ? Narrative 03/24/2021 1:57 PM EDT EXAMINATION: CT-Guided Sacroiliac Joint Injection CLINICAL HISTORY: Left SI Joint Pain, Sacroiliac joint dysfunction of both sides. COMPARISON: CT-guided left sacroiliac joint injection of 01/30/2019, CTA pelvis 06/20/2019 TECHNIQUE: The risks and benefits of the procedure were discussed with the patient, and written informed consent was obtained. ??The patient was positioned prone on the CT table, and noncontrast images of the sacrum were obtained. ??An appropriate level and access path were chosen. ??The skin was then marked, prepped and draped in the usual sterile fashion. 1% lidocaine used for local anesthesia. ?? With intermittent CT fluoroscopic guidance, a 22-gauge spinal needle was advanced into the left sacroiliac joint. Into the joint, 2 mL of 0.5% bupivacaine mixed with 80 mg of Depo-Medrol was injected. ??The needle was removed. The patient tolerated the procedure well with no immediate complications. ?? FINDINGS: Partially visualized lower lumbar posterior instrumented fusion and right hip prosthesis. Lower lumbar and sacroiliac degenerative change is present. Specifically, there is asymmetric joint space narrowing of the sacroiliac joints with osteoproliferative change. Preprocedure pain: 5/10 Postprocedure pain: 0/10 ?? Procedure Note Vitor Hutchinson MD - 03/24/2021 EXAMINATION: CT-Guided Sacroiliac Joint Injection CLINICAL HISTORY: Left SI Joint Pain, Sacroiliac joint dysfunction ofboth sides. COMPARISON: CT-guided left sacroiliac joint injection of 01/30/2019, CTApelvis 06/20/2019 TECHNIQUE: The risks and benefits of the procedure were discussed with the patient,and written informed consent was obtained. The patient was positioned proneon the CT table, and noncontrast images of the sacrum were obtained. Anappropriate level and access path were chosen. The skin was then marked, prepped anddraped in the usual sterile fashion. 1% lidocaine used for local anesthesia. With intermittent CT fluoroscopic guidance, a 22-gauge spinal needle was advanced into the left sacroiliac joint. Into the joint, 2 mL of 0.5% bupivacaine mixed with 80 mg of Depo-Medrol was injected. The needlewas removed. The patient tolerated the procedure well with no immediate complications. FINDINGS: Partially visualized lower lumbar posterior instrumented fusionand right hip prosthesis. Lower lumbar and sacroiliac degenerative change is present. Specifically, there is asymmetric joint space narrowing of the sacroiliac joints with osteoproliferative change. Preprocedure pain: 5/10 Postprocedure pain: 0/[address]-guided left sacroiliac joint anesthetic and steroidinjection. Resident: Dr. Savita MD Attending: Dr. Jasper MD I, Vitor Hutchinson MD, was present for critical portions of the procedure including site selection, needle placement, and was immediatelyavailable throughout. Preliminary report signed by: Jason Barney at 03/24/2021 12:47 PM I have personally reviewed the image(s) and the resident's interpretationand agree with the findings, Vitor Hucthinson MD at 03/24/2021 1:57 PM Thank you for letting us participate in the care of this patient. If youare a health care provider and have any questions regarding this report,please contact the number below. For patients who have questions please contactthe health child care giver that requested your imaging first. Adal BUTT IMG CT ORDERABLES documented in this encounter Visit Diagnoses Diagnosis Chronic left SI joint pain Disorders of sacrum Sacro-iliac pain Disorders of sacrum documented in this encounter Care Teams Deep Well Contractor Relationship Specialty Start Date End Date Ritu Bolaños APRN [address] [place] [address] PCP - General 05/07/15 02/03/22 documented as of this encounter
--- OUTSIDE RECORDS SUMMARY | 2024-04-12 15:14 | XMS_ITS | Continuity of Care Document ---
Author Organization [facility] Address [address] [place] [address] Care Team Providers Care Co Founder Name Role Phone Jade Stewart Primary Care Physician Encounter NCTY_[place] Date(s): 04/03/24 - 04/03/[address] [address] Discharge Disposition: Home or Self Care Attending [...] hr, PRN as needed for wheezing, # 3 EA, 3 Refill(s), Pharmacy: [facility] #[id number], 163, cm, 01/12/24 13:11:00 EDT, Height, 57.9, kg, 04/04/24 10:43:00 EDT, Weight Dosing Start Date: 04/04/24 Status: Ordered celecoxib 200 mg oral capsule 200 mg = 1 cap, Oral, Daily, # 90 cap, 3 Refill(s), Pharmacy: [facility] #[id number], 160.02, cm, 08/11/22 18:03:00 EST, Height/Length Dosing, 61.23, kg, 08/11/22 18:03:00 EST, Weight Dosing Start Date: 08/29/23 Status: Ordered Co-Q10 100 mg oral capsule 100 mg = 1 cap, Oral, Daily, # 30 cap, 0 Refill(s) Start Date: 03/15/22 Status: Ordered fluticasone 50 mcg/inh nasal spray 1 sprays, !-Nasal, BID, SHAKE LIQUID., # 48 g, 0 Refill(s), Pharmacy: [facility] #[id number], 162.56, cm, 11/08/23 11:40:00 EST, Height, 58.7, [...] days, # 1 EA, 11 Refill(s), Pharmacy: [facility], 160.02, cm, 08/11/22 18:03:00 EST, Height/Length Dosing, 61.23, kg, 08/11/22 18:03:00 EST, Weight Dosing Start Date: 09/17/22 Status: Ordered potassium chloride 10 mEq oral capsule, extended release 2 cap, Oral, Daily, # 180 cap, 0 Refill(s), Pharmacy: [facility] #[id number], 163, cm, 01/12/24 13:11:00 EDT, Height, 58, kg, 03/19/24 13:27:00 EDT, Weight Dosing Start Date: 03/27/24 Status: Ordered sertraline 50 mg oral tablet 50 mg = 1 tab, Oral, Daily, # 90 tab, 3 Refill(s), Pharmacy: [facility] #[id number], 160.02, cm, 08/11/22 18:03:00 EST, Height/Length Dosing, 61.23, kg, 08/11/22 18:03:00 EST, Weight Dosing Start Date: 03/18/23 Status: Ordered Trelegy Ellipta 200 mcg-62.5 mcg-25 mcg/inh inhalation powder 1 puffs, Inhale, Daily, for 360 days, # 3 EA, 6 Refill(s), Pharmacy: [facility] #[id number], 160.02, cm, 08/11/22 18:03:00 EST, Height/Length Dosing, 61.23, kg, 08/11/22 18:03:00 EST, Weight Dosing Start Date: 02/08/23 Status: Ordered triamterene-hydrochlorothiazide 37.5mg-25mg oral capsule 2 cap, Oral, Daily, # 180 cap, 3 Refill(s), Pharmacy: [facility] #[id number], 163, cm, 01/12/24 13:11:00 EDT, Height, 57.9, kg, 04/04/24 10:43:00 EDT, Weight Dosing Start Date: 04/04/24 Status: Ordered Tylenol 8 HR Arthritis Pain 650 mg oral tablet, extended release 1,300 mg = 2 tab, Oral, BID, 0 Refill(s) Start Date: 03/15/22 Status: Ordered Xarelto 20 mg oral tablet 20 mg = 1 tab, Oral, every evening, with evening meal, # 60 tab, 0 Refill(s), Pharmacy: [facility] #[id number], 163, cm, 01/12/24 13:11:00 EDT, Height, 57.9, kg, 04/04/24 10:43:00 EDT, Weight Dosing Start Date: 04/04/24 Stop Date: 06/03/24 Status: Ordered Problem List Condition Confirmation Course [...] Postoperative nausea and vomiting Confirmed 03/29/19 Active Pulmonary embolism Confirmed Active Seasonal allergic rhinitis Confirmed Active Spinal [...] entered on: 03/19/24 Sex Female 1quit 1971 [facility] Heart * Izabela Peterson: PERFORM Event Display: Echo Report Authored Date: [id number] Patient Care team information Care Team Personnel Name: Jade Stewart NP Position: Physician Member Role: Informed Provider Address: Address: [address] [place] [phone] [place] Care Team Related Persons Name: GEO AMEZCUA Address: Home [address] [place] [phone] Address: [facility] Name: DOMINGO MUNROE
--- OUTSIDE RECORDS SUMMARY | 2024-04-12 15:14 | XMS_ITS | Encounter Summary ---
Author Organization 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 Name Role Phone Ritu Bolaños RAEANN Primary Care Provider [phone]- [phone] Encounter Details Date Type Department Care Team (Late st Contact Info) Description 05/11/2021 External Results Pre-Admission Testing at [facility] [address] [place] [id number] Social History Tobacco Use Types Packs/Day Years Used Date Smoking Tobacco: Former Cigarettes 0.5 25 1 945 - 2199 Smokeless Tobacco: Never Alcohol Use Standard Drinks/Week [...] Procedure Name Priority Date/Time Associated Diagnosis Comments LAB SCAN Routine 05/05/2021 ECG SCAN Routine 05/05/2021 documented in this encounter Results * Scan Doc: Lab (05/05/2021) Historical Provider MD MEDIA MGR SCAN EX T ORDR/RSLT * Scan Doc: ECG (05/05/2021) Historical Provider MD MEDIA MGR SCAN EX T ORDR/RSLT documented in this encounter Visit Diagnoses Not on filedocumented in this encounter Care Teams Gasoline Locomotive Crane Operator Relationship Specialty Start Date End Date Ritu Bolaños APRN [address] [place] [phone] PCP - General 05/07/15 02/03/22 documented as of this encounter
--- OUTSIDE RECORDS SUMMARY | 2024-04-12 15:14 | XMS_ITS | Continuity of Care Document ---
Author Organization [facility] Address [address] [place] [address] Care Team Providers Care Ware Tester Name Role Phone Jade Stewart Primary Care Physician Encounter [facility]CT[facility]_[place] Date(s): 01/13/24 - 01/13/24 [facility] [address] [place] [address] Discharge Disposition: Home Allergies, Adverse Reactions, Alerts [...] wheezing, # 18 g, 3 Refill(s), Pharmacy: [facility] #[id number], 160.02, cm, 08/11/22 18:03:00 EST, Height/Length Dosing, 61.23, kg, 08/11/22 18:03:00 EST, Weight Dosing Start Date: 04/06/23 Status: Ordered celecoxib 200 mg oral capsule 200 mg = 1 cap, Oral, Daily, # 90 cap, 3 Refill(s), Pharmacy: [facility] #[id number], 160.02, cm, 08/11/22 18:03:00 EST, Height/Length Dosing, 61.23, kg, 08/11/22 18:03:00 EST, Weight Dosing Start Date: 08/29/23 Status: Ordered Co-Q10 100 mg oral capsule 100 mg = 1 cap, Oral, Daily, # 30 cap, 0 Refill(s) Start Date: 03/15/22 Status: Ordered doxycycline hyclate 100 mg oral capsule 100 mg = 1 cap, Oral, BID, # 28 cap, 0 Refill(s), Pharmacy: [facility] #[id number], 160.02, cm, 08/11/22 18:03:00 EST, Height/Length Dosing, 58.9, kg, 10/03/23 10:45:00 EST, Weight Dosing Start Date: 10/03/23 Stop Date: 10/17/23 Status: Ordered fluticasone 50 mcg/inh nasal spray 1 sprays, !-Nasal, BID, SHAKE LIQUID., # 48 g, 0 Refill(s), Pharmacy: [facility] #[id number], 162.56, cm, 11/08/23 11:40:00 EST, Height, 58.7, [...] days, # 1 EA, 11 Refill(s), Pharmacy: [facility], 160.02, cm, 08/11/22 18:03:00 EST, Height/Length Dosing, 61.23, kg, 08/11/22 18:03:00 EST, Weight Dosing Start Date: 09/17/22 Status: Ordered potassium chloride 10 mEq oral capsule, extended release 20 mEq = 2 cap, Oral, Daily, # 180 cap, 3 Refill(s), Pharmacy: [facility] #[id number], 160.02,cm, 08/11/22 18:03:00 EST, Height/Length Dosing, 61.23, kg, 08/11/22 18:03:00 EST, Weight Dosing Start Date: 03/18/23 Stop Date: 03/12/24 Status: Ordered predniSONE 20 mg oral tablet 20 mg = 1 tab, Oral, BID, # 10 tab, 0 Refill(s), Pharmacy: [facility] #[id number], 160.02, cm,08/11/22 18:03:00 EST, Height/Length Dosing, 58.9, kg, 10/03/23 10:45:00 EST, Weight Dosing Start Date: 10/03/23 Stop Date: 10/08/23 Status: Ordered sertraline 50 mg oral tablet 50 mg = 1 tab, Oral, Daily, # 90 tab, 3 Refill(s), Pharmacy: [facility] #[id number], 160.02, cm, 08/11/22 18:03:00 EST, Height/Length Dosing, 61.23, kg, 08/11/22 18:03:00 EST, Weight Dosing Start Date: 03/18/23 Status: Ordered Trelegy Ellipta 200 mcg-62.5 mcg-25 mcg/inh inhalation powder 1 puffs, Inhale, Daily, for 360 days, # 3 EA, 6 Refill(s), Pharmacy: [facility] #[id number], 160.02, cm, 08/11/22 18:03:00 EST, Height/Length Dosing, 61.23, kg, 08/11/22 18:03:00 EST, Weight Dosing Start Date: 02/08/23 Status: Ordered triamterene-hydrochlorothiazide 37.5 mg-25 mg oral tablet 2 tab, Oral, Daily, # 90 tab, 3 Refill(s), Pharmacy: [facility] #[id number], 160.02, cm, 08/11/22 18:03:00 EST, Height/Length Dosing, [...] Physician Member Role: Informed Provider Address: Address: [address] [place] [phone] [place] Care Team Related Persons Name: GEO AMEZCUA Address: Home [address] [place] [phone] [place] Name: DOMINGO MUNROE
--- OUTSIDE RECORDS SUMMARY | 2024-04-12 15:14 | XMS_ITS | Encounter Summary ---
[place] [address] Care Team Providers Care Manager Retention Name Role Phone Roma Magaña MD Primary Care Provider Reason for Referral * Diagnostic Test (Routine) - Closed Specialty Diagnoses / Procedures Referred By Contac t Referred To Contact Cardiology Diagnoses Pulmonary embolism without acute cor pulmonale, unspecified chronicity, unspecified pulmonary embolism type Other specified abnormal findings of blood chemistry Procedures Mobile Sierra Veras MD [address] [place] [address] [id number] [facility] [place] [address] Referral ID Status Reason Start Date Expiration Date V isits Requested Visits Authorized [id number] Closed Specialty Service Requested 04/03/2024 04/03/2025 1 1 Reason for Visit * Diagnostic Test (Routine) - Closed Specialty Diagnoses / Procedures Referred By Contac t Referred To Contact Cardiology Diagnoses Pulmonary embolism without acute cor pulmonale, unspecified chronicity, unspecified pulmonary embolism type Other specified abnormal findings of blood chemistry Procedures Mobile Sierra Veras MD [address] [place] [address] [id number] [facility] [place] [address] Referral ID Status Reason Start Date Expiration Date V isits Requested Visits Authorized [id number] Closed Specialty Service Requested 04/03/2024 04/03/2025 1 1 Encounter Details Date Type Department Care Team (Latest Contact Info) Description 04/03/2024 9:30 AM EDT - 04/03/2024 11:59 PM EDT Hospital Encounter [place] [address] Sierra Phillips MD [address] [place] [address] [place] [address] Pulmonary embolism without acute cor pulmonale, unspecified chronicity, unspecified pulmonary embolism type; Other specified abnormal findings of blood chemistry Discharge Disposition: Home Social History Tobacco Use Types Packs/Day Years Used Date Smoking Tobacco: Former Cigarettes 0.5 25 1 759 - 4732 Smokeless Tobacco: Never Alcohol Use Standard Drinks/Week [...] as needed fluticasone propionate (FLONASE) 50 mcg/actuation [place], Suspension 2 sprays by Each Nare route nightly. Magnesium Oxide 250 mg magnesium Tablet Take 2 tablets by mouth daily. multivitamin (THERAGRAN) Tablet Take 1 tablet by mouth daily. documented as of this encounter Plan of Treatment Not on file documented as of this encounter Procedures Procedure Name Priority Date/Time Associated Diagnosis Comments ECHO COMPLETE Routine 04/03/2024 1:21 PM EDT Pulmonary embolism without acute cor pulmonale, unspecified chronicity, unspecified pulmonary embolism type Other specified abnormal findings of blood chemistry documented in this encounter Results * ECHO COMPLETE (04/03/2024 1:21 PM EDT) Anatomical Region Laterality Modality Other 04/03/2024 8:00 AM EDT Narrative 04/03/2024 2:02 PM EDT [address] [place] [address] ? Echocardiogram Report Name: JIGNA AMEZCUA ? Study Date: 04/03/2024 08:00 AMBP: 120/74 mmHg ? Patient Location: : 1945 ? Height: 163 cm ? Account: [id number] Age: 79 yrs ? Weight: 58 kg Gender: Female ?BSA: 1.6 m2 Ordering Physician: LEIGH ANN^SIERRA Referring Physician: SIERRA PHILLIPS Performed By: Elaine Ibarra RDCS Reason For Study: Elevated d-dimer. Pulmonary embolism without acute cor pulmonale. Exam Location: [facility]. Interpretation Summary -Left ventricle is of normal [...] -No prior study available for comparison. Procedure Complete-[id number]. Satisfactory quality. There is normal sinus rhythm. [...] Aidan Del Rio MD - 04/03/2024 [address] [place] [address] Echocardiogram Report Name: JIGNA AMZECUA Study Date: 04/03/2024 08:00 AMBP:120/74 mmHg Patient Location: : 1945 Height: 163 cmAccount: [id number] Age: 79 yrs Weight: 58 kg Gender: Female BSA: 1.6 m2 Ordering Physician: VISHAL Referring Physician: SIERRA PHILLIPS Performed By: Elaine Ibarra RDCS Reason For Study: Elevated d-dimer. Pulmonary embolism without acute cor pulmonale. Exam Location: [facility]. Interpretation Summary -Left ventricle is of normal [...] -No prior study available for comparison. Procedure Complete-[id number]. Satisfactory quality. There is normal sinus rhythm. [...] Dyskinetic 3-5moderate 5 - 6-14large Aneurysmal 15-16diffuse Sierra Phillips MD ECHO ORDERABLES documented in this encounter Visit Diagnoses Diagnosis Pulmonary embolism without acute cor pulmonale, unspecified chronicity, unspecified pulmonary embolism type Other specified abnormal findings of blood chemistry documented in this encounter Care Teams Manager Retention Relationship Specialty Start Date End Date Roma Magaña MD [address] [place] [address] PCP - General 02/04/22 documented as of this encounter
--- OUTSIDE RECORDS SUMMARY | 2024-04-12 15:15 | XMS_ITS | Encounter Summary ---
[place] [address] Care Team Providers Care Milk Inspector Name Role Phone Ritu Bolaños APRN Primary Care Provider [phone] Encounter Details Date Type Department Care Team (Latest Contact Info) Description 07/06/2019 10:30 AM EDT Ancillary Procedure Radiology Ultrasound at the [facility] [address] [place] [address] Eric Soto MD [address] [place] [address] Status post total replacement of right hip Social History Tobacco Use Types Packs/Day Years Used Date Smoking Tobacco: Never Smokeless Tobacco: Never Alcohol Use Standard Drinks/Week [...] Procedure Name Priority Date/Time Associated Diagnosis Comments US DVT LOWER EXTREMITY LIMITED RIGHT STAT 07/06/2019 10:59 AM EDT Status post total replacement of right hip documented in this encounter Results * US DVT Lower Extremity Limited Right (07/06/2019 10:59 AM EDT) Anatomical Region Laterality Modality Arm, Shoulder, Elbow, Forear m, Wrist, Hand, Hip, Thigh, Knee, Leg, Ankle, Foot Right Ultrasound Impressions 07/06/2019 11:08 AM EDT No evidence of a deep vein thrombosis. Thank you for letting us participate in the care of this patient. For questions regarding this report, please contact the number below. ? Narrative 07/06/2019 11:08 AM EDT EXAMINATION: US DVT LOWER EXTREMITY LIMITED RIGHT ? CLINICAL HISTORY: rule out dvt s/p rt thr not anticoagulated TECHNIQUE: Duplex imaging of the right lower extremity. COMPARISON: None FINDINGS: The common femoral, superficial femoral, deep femoral and popliteal veins are patent. Visualized portions of the greater saphenous vein and calf veins are patent. Procedure Note Atif Murrell MD - 07/06/2019 EXAMINATION: US DVT LOWER EXTREMITY LIMITED RIGHT CLINICAL HISTORY: rule out dvt s/p rt thr not anticoagulated TECHNIQUE: Duplex imaging of the right lower extremity. COMPARISON: None FINDINGS: The common femoral, superficial femoral, deep femoral and popliteal veinsare patent. Visualized portions of the greater saphenous vein and calf veinsare patent. IMPRESSION No evidence of a deep vein thrombosis. Thank you for letting us participate in the care of this patient. Forquestions regarding this report, please contact the number below. Electronically signed by: MICHELLE Scherer [facility]([phone]), at 07/06/2019 11:08 AM Eric Soto MD IMG US GEN ORDERABLE S documented in this encounter Visit Diagnoses Diagnosis Status post total replacement of right hip documented in this encounter Care Teams Milk Inspector Relationship Specialty Start Date End Date Ritu Bolaños APRN [address] [place] [id number] PCP - General 05/07/15 02/03/22 documented as of this encounter
--- OUTSIDE RECORDS SUMMARY | 2024-04-12 15:15 | XMS_ITS | Encounter Summary ---
Author Organization [facility] [place] [address] Care Team Providers Care Social Media Editor Name Role Phone Ritu Bolaños APRN Primary Care Provider [phone] Reason for Visit * Auth/Cert Specialty Diagnoses / Procedures Referred By Contac t Referred To Contact Diagnoses s/p total hip arthroplasty with IT band entrapment Procedures PRO UNLISTED PROCEDURE ARTHROSCOPY ARTHROSCOPIC GREATER TROCHANTERIC BURSECTOMY W ILIOTIBIAL BAND RELEASE MODIFIER [facility] MODIFIER [facility] Referral ID Status Reason Start Date Expiration Date Visits Re quested Visits Authorized [id number] 1 1 Encounter Details Date Type Department Care Team (Latest Contact Info) Description 01/23/2020 9:03 AM EDT - 01/23/2020 3:05 PM EDT Hospital Encounter Post Acute Care Unit at [address] [id number] Claudio Cox MD [address] [place] [address] S/P hip arthroscopy; right greater troch bursectomy; 01/23/2020; Dr. Cox Discharge Disposition: Home Social History Tobacco Use [...] Sign Reading Time Taken Comments Blood Pressure 137/78 01/23/2020 2:20 PM EDT Pulse 73 01/23/2020 2:20 PM EDT Temperature 36.6 ??C (97.9 ??F) 01/23/2020 1:28 PM ED T Respiratory Rate 16 01/23/2020 2:20 PM EDT Oxygen Saturation 100% 01/23/2020 2:20 PM EDT Inhaled Oxygen Concentration - - Weight 61.2 kg (135 lb) 01/23/2020 9:32 AM EDT Height 162.6 cm (5' 4) 01/23/2020 9:32 AM EDT Body Mass Index 23.17 01/23/2020 9:32 AM EDT documented in this encounter Discharge Instructions * Patient Instructions* Regla Cox PA - 01/23/2020 10:54 AM EDT Precautions: ??? Avoid sitting for longer than an hour when not asleep. Short walks around the home are recommended; increase the distance to your tolerance. ??? Stairs can be difficult after surgery; use an assistive walking device for stair safety. ??? A sudden increase in hip or leg swelling and pain may indicate that you are doing too much after surgery. Rest, elevation, ice, and use of compression are helpful if this happens. ??? Use of pain medications and muscle relaxants can have a sedating effect; please use caution as this may increase your risk of a fall. Restrictions: ??? Do not drive a car. The ability to drive will be decided by your physician, physician assistantand physical therapist. ??? To be able to return to driving the following is recommended: o No longer taking pain medications. o Have the strength to press down hard on the brakes. o Clearance is usually between 2-4 weeks after surgery. Home Care Instructions: ??? Good personal hygiene and hand washing is recommended at home as they are critical to preventing illness and infection. If soap and water are unavailable, you can use an alcohol-based hand pad machine operator to clean your hands. ??? Rremove your post-op bandages 3-4 days after surgery. This will be done during telehealth visitwith your provider. o Gently remove the Silverlon band aids, keeping the steri-strips in place. o Apply a small amount of normal saline to the silver pad on the band aids and apply the band aid over your incisions. o Remove Silverlon band aids 5 days after you apply them. ??? Once the Silverlon band aids are removed you often do not need additional dressings to cover your incision unless otherwise instructed by your physician, physician orthopedic assistant, or nurse. ??? Steri-strips have been placed on your incision and should fall off on their own. If they have not fallen off they can be gently removed 14-21 days after your surgery. ??? You may shower on the third day after surgery (no bathing), with the Silverlon band aids covering your incision sites. Pat the incision/dressing dry with a clean, dry towel. ??? A shower seat is recommended for safety. ??? Do not apply ointments, lotions, or creams to your incision sites. Exercise/Activities: ??? Activities of daily living as tolerated. ??? You will begin outpatient physical therapy usually within 1-2 weeks after surgery. The physicaltherapist will help you guide you through your recovery and therapy process to regain strength and range of motion. ??? Use an assistive walking device (cane, crutches, or walker): You may put as much weight on yoursurgical leg as is comfortable for you (weight bearing as tolerated). Diet: ??? Continue your usual diet. Fresh fruits, vegetables, and foods containing fiber and iron are recommended. ??? Drink plenty of fluids especially water. Comfort: ??? Surgical site soreness can be expected. ??? Frequent use of ice is recommended. ??? Take pain medications as prescribed. Lessen the use of pain medication as pain decreases. ??? You may take Ibuprofen and Tylenol (Acetaminophen) for mild to moderate pain. o Please avoid the use of these iibw-iuj-zbyxavw medications if you have an allergy or sensitivity to them. - Ibuprofen 800 mg may be taken every 8 hours with food. - Tylenol 650-1000 mg may be taken every 8 hours. Do not take more than 3000 mg of Tylenol in a 24-hour period of time. - Alternating the use of Ibuprofen and Tylenol every 4 hours throughout the day is often helpful. ??? Your throat may be sore for the first 2-3 days following surgery; throat lozenges may be helpful. ??? Pain medications can cause you to become constipated. o Stool softeners or mild laxatives are encouraged and may be needed for the duration of pain medication use. o Cyiq-gyj-bixolio options: Colace 100 mg twice daily or MiraLAX 17 grams mixed in 8 ounces of water once daily. ??? Call the orthopaedic office to discuss pain medication refills if needed. The prescriptions will need to be picked up at the office or could be mailed to you with several days??? notice. ??? Pain medication refills are provided for a maximum of 8 weeks after surgery based on your levelof post-operative pain. FOLLOW-UP APPOINTMENTS: ??? A follow-up appointment will be arranged for you in about 3-4 days after your surgery for a bandage change. MEDICATIONS: ??? Read all medication instructions and take as prescribed. ??? Keep a list of your medicines, vitamins, and herbal supplement you take. Keep this list with you at all times. Show it to all of your caregivers at every visit. Keep the list up-to-date. ??? If any new medications are prescribed as a result of this surgery and you have questions, please ask for written information on their side effects, interactions, foods to avoid and when to stop taking it. Information will be provided by the pharmacy that fills the prescription. ??? Only take auhp-crg-mzieiqf or prescription medicine for pain, discomfort or fever as directed by your caregiver. ??? Consult your Orthopaedic provider, nurse or pharmacist with any questions. Call Your Physician IF: (these could be signs of an infection) ??? You have a fever over 101.5 degrees Fahrenheit. ??? You have increased pain, tenderness, or redness in your calf or leg. ??? You have increased swelling of your thigh, calf, ankle, or foot. ??? You develop redness, swelling, or drainage from your incision. ??? You have increased knee pain with both activity and rest. CALL 911 IF: ??? You have shortness of breath or chest pain with breathing. SMOKING CESSATION INFORMATION: ??? [place] QUITLINE: ??? [place] QUITLINE: ??? [email or web address] If you smoke, stop now! Smoking may impede healing. MAKE SURE YOU: ??? Understand these instructions. ??? Will seek medical care if you are feeling poor, or get worse. ??? Will call the Orthopaedic Department with questions or concerns at . We are very pleased you have decided to come to [facility] and the Orthopaedic Department for your care and we look forward to seeing you in the office soon. documented in this encounter Medications at Time of Discharge Medication Sig Dispensed Refills Start Date End Date ondansetron ODT (Zofran-ODT) 4 mg Tablet, Rapid Dissolve Place 1 tablet (4mg) on top of tongue, allow to disolve and swallow Q6H PRN Nausea and voimitting 20 tablet 01/23/2020 cetirizine (ZyrTEC) 10 mg TabletIndications:seas onal allergic rhinitis Take 10 mg by mouth daily as needed for Allergies. Indications: seasonal runny nose senna (Senokot) 8.6 mg TabletIndications:cons tipation,PT STATES SHE TAKES EIGHT TABS Take 8 tablets by mouth daily. Indications: constipation, PT STATES SHE TAKES EIGHT TABS triamterene-hydroCHLOR Othiazide (Dyazide) 37.5-25 mg Capsule Take 2 capsules by mouth every morning. potassium chloride (K-DUR/KLOR-CON) 10 mEq Tablet Sustained Release Take 10 mEq by mouth daily. 0 04/21/2019 sertraline (ZOLOFT) 50 mg TabletIndications:Take s around 2pm Take 1 tablet by mouth every morning. Indications: Takes around 2pm 0 04/10/2019 celecoxib (CELEBREX) 200 mg Capsule Take 200 mg by mouth every morning. 1 05/03/2019 albuterol (PROVENTIL HFA) 90 mcg/actuation HFA Aerosol Inhaler 2 puffs every 4 hours as needed. albuterol (PROVENTIL) 2.5 mg /3 mL (0.083 %) Solution for NebulizationIndication s:every 4 to 6 hours as needed Take 2.5 mg by nebulization. Indications: every 4 to 6 hours as needed fluticasone propionate (FLONASE) 50 mcg/actuation [place], Suspension 2 sprays by Each Nare route nightly. Magnesium Oxide 250 mg magnesium Tablet Take 2 tablets by mouth daily. multivitamin (THERAGRAN) Tablet Take 1 tablet by mouth daily. acetaminophen (Tylenol) 500 mg Tablet Take 1-2 tablets by mouth every 8 hours as needed (post-op pain). DO NOT take more than 3000 mg Tylenol from all sources 0 01/23/2020 10/02/2020 HYDROcodone-acetaminop hen ([place]) 5-325 mg Tablet Take 1 tablet by mouth every 4 hours as needed (Post Operative pain). 30 tablet 01/23/2020 02/01/2020 polyethylene glycol (Miralax) 17 gram Powder in Packet Take 17 g by mouth daily as needed (constipation). 14 each 01/23/2020 02/18/2020 diclofenac (VOLTAREN) 1 % Gel Apply 1 g topically 4 times daily as needed. 1 Tube 1 10/10/2019 10/02/2020 budesonide (PULMICORT FLEXHALER) 180 mcg/actuation Aerosol Powdr Breath Activated Inhale 1 puff into the lungs 2 times daily. 10/02/2020 salmeterol (SEREVENT DISKUS) 50 mcg/dose Disk with Device Inhale 1 puff into the lungs 2 times daily. 10/02/2020 loratadine (CLARITIN) 10 mg Tablet Take 10 mg by mouth daily as needed for Allergies. 01/24/2020 alendronate (FOSAMAX) 70 mg TabletIndications:TAKE S EITHER TUESDAY OR TUESDAY Take 70 mg by mouth every 7 days. Indications: TAKES EITHER TUESDAY OR Tuesday10/02/2018 05/06/2020 ubidecarenone/omega-3/ vit E (CO [id number] E-FISH OIL ORAL) Take 1 tablet by mouth daily. 05/12/2021 documented as of this encounter Progress Notes * Lucia Gomez RN - 01/23/2020 3:23 PM EDT Discharge instructions reviewed with patient and her , Don. All questions answered. Dressingchange materials given along with copy of d/c instructions. * Lucia Gomez RN - 01/23/2020 2:59 PM EDT Patient is meeting d/c criteria for PACU. She reports minimal pain to right hip. Patient continues to tolerate po fluids well. She ambulated to using walker, steady gait, able to void. Patient is now getting dressed. This underwriter spoke with her , Theo, after permission received from patient; updating Don on Pat's status. * Jenniffer Alexander RN - 01/23/2020 10:15 AM EDT Pt complained of nerve pain on insertion, running down to R thumb, some swelling at site, but good blood return, infuses well. Pt given specific instructions what to watch for documented in this encounter H&P Notes * Claudio Cox MD - 01/23/2020 10:32 AM EDT [facility] History and Physical Note Problem List-based Assessment & Plan: Planned surgery: right hip arthroscopic greater trochanter bursectomy with IT band release Service: Orthopaedics There are no hospital problems to display for this patient. Active Non-Hospital Problems Diagnosis ??? Hypokalemia ??? Hypotension ??? Claustrophobia ??? [...] Breast calcifications ??? Pain in right hip History of Present Illness: Jigna Espinoza is a 74 y.o. female. She presents with 2 year??historyof Right lateral hip pain.?She presents today at the request of her orthopedic surgeon Dr. Eric Soto??at [facility] who performed her hip replacement in June 2019. ??She has had pain at the greater trochanteric region of her right hip prior to and ever since abductor surgical repair performed by Dr. Cox in May 2017. ??In the interim she is also had 3 back surgeries including laminectomy, and 2 fusion surgeries all performed by Dr. Nick Fontanez[facility]. ??Patient has pain with ambulation along with feeling of weakness and instabilityand snapping in the lateral aspect of her right hip when she bears weight. ??She is to be a very avid runner and athlete participating in 5K runs. ??Her last 5K was in 2016. ??She is now been able torun since her multiple surgeries. ??She is back to walking 1 mile per day on a treadmill along withsome light weights. ??She does a little bit of gardening but is having to be very careful with activities. ??She does take a generic version of Celebrex but does not feel like it gives her a lot of relief. ??She is not having any numbness or tingling down the legs and she denies saddle anesthesia, incontinence of bladder or bowel or numbness or tingling below the waist. ??She just finished 20 sessions of physical therapy near her home in [facility]. ??She feels like the exercises given to her PT often make her hip feel worse. ??There is been focus on mobilizing the iliotibial band and lateral hip region. ?? She reports that she continues to have pain and popping along her greater trochanteric bursal region and iliotibial band of her right leg that continues to radiate down her leg. She is very frustrated with the olguin and its effect on her ambulation, ADLs and sleep. It was determined that she would benefit from undergoing a right hip arthroscopic greater trochanter bursectomy with IT band release. Review of Systems: Review of Systems Constitutional: Negative for appetite change, fatigue, fever and unexpected weight change. HENT: Negative for congestion, ear pain, mouth sores, postnasal drip, sinus pressure, sinus pain and sore throat. Seasonal allergies, runny nose Eyes: Negative for pain and visual disturbance. Seasonal allergies: watery itchy eyes Respiratory: Negative for cough, chest tightness, shortness of breath and wheezing. Cardiovascular: Negative for chest pain and palpitations. Gastrointestinal: Negative for abdominal pain, constipation, diarrhea, nausea and vomiting. Genitourinary: Negative for difficulty urinating, dysuria, flank pain and frequency. Musculoskeletal: Negative for back pain and neck pain. Right lateral hip pain and popping Skin: Negative for rash and wound. Allergic/Immunologic: Positive for environmental allergies. Negative for immunocompromised state. Neurological: Negative for dizziness, syncope, light-headedness and headaches. Hematological: Negative for adenopathy. Does not bruise/bleed easily. Psychiatric/Behavioral: Negative for behavioral problems and confusion. Past Medical and Surgical History: Past Medical History: Diagnosis Date ??? Allergic rhinitis 02/28/2019 ??? Asthma ??? Basal cell carcinoma of skin 02/28/2019 ??? Cancer bcc ??? Chronic pain ??? Claustrophobia 06/11/2019 ??? Gastroesophageal reflux ??? Hand pain, right 02/28/2019 ??? Hand pain, right 02/28/2019 ??? High blood pressure ??? Hypokalemia 11/29/2019 ??? Irregular heart beat PALPITATIONS ??? L3 vertebral fracture 02/28/2019 ??? [place] cell skin cancer of right lower leg [...] 01/30/2019 CT Guided Injection SI Joint 01/30/2019 [facility] RAD CAT SCAN ??? CT GUIDED JOINT INJECTION 09/04/2018 CT Guided Joint Injection 09/04/2018 [facility] RAD CAT SCAN ??? HIP SURGERY 05/25/2017 ??? HYSTERECTOMY ??? JOINT REPLACEMENT Right 06/19/2019 THR ??? OVARY REMOVAL ??? PRO TOTAL HIP ARTHROPLASTY Right 06/19/2019 @TOTAL HIP ARTHROPLASTY, ANTERIOR APPROACH (WRVU 20.72) performed by Eric Soto MD at [facility] OR ??? SPINAL FUSION 01/2018 ??? UPPER GASTROINTESTINAL ENDOSCOPY AND 04/04/2019 ??? XR FLUORO INJECTION DRAINAGE JOINT LG RIGHT Right 03/16/2019 XR Fluoro Guided Joint Injection Large Right 03/16/2019 [facility] RAD XRAY Medications: Medications Prior to Admission Medication Sig Dispense Refill Last Dose ??? cetirizine (ZyrTEC) 10 mg Tablet Take 10 mg by mouth daily as needed for Allergies. Indications: seasonal runny nose ??? senna (Senokot) 8.6 mg Tablet Take 8 tablets by mouth daily. Indications: constipation, PT STATES SHE TAKES EIGHT TABS ??? triamterene-hydroCHLOROthiazide (Dyazide) 37.5-25 mg Capsule Take 2 capsules by mouth every morning. ??? diclofenac (VOLTAREN) 1 % Gel Apply 1 g topically 4 times daily as needed. 1 Tube 1 ??? potassium chloride (K-DUR/KLOR-CON) 10 mEq Tablet Sustained Release Take 10 mEq by mouth daily.0 Taking ??? sertraline (ZOLOFT) 50 mg Tablet Take 1 tablet by mouth nightly. 0 Taking ??? celecoxib (CELEBREX) 200 mg Capsule 200 mg daily. 1 11/28/2019 ??? albuterol (PROVENTIL HFA) 90 mcg/actuation HFA Aerosol Inhaler 2 puffs every 4 hours as needed.Taking ??? budesonide (PULMICORT FLEXHALER) 180 mcg/actuation Aerosol Powdr Breath Activated Inhale 1 puffinto the lungs 2 times daily. Taking ??? salmeterol (SEREVENT DISKUS) 50 mcg/dose Disk with Device Inhale 1 puff into the lungs 2 times daily. Taking ??? albuterol (PROVENTIL) 2.5 mg /3 mL (0.083 %) Solution for Nebulization Take 2.5 mg by nebulization. Indications: every 4 to 6 hours as needed Taking ??? loratadine (CLARITIN) 10 mg Tablet Take 10 mg by mouth daily as needed for Allergies. Taking ??? fluticasone propionate (FLONASE) 50 mcg/actuation [place], Suspension 2 sprays by Each Nare routedaily. Taking ??? Magnesium Oxide 250 mg magnesium Tablet Take 2 tablets by mouth daily. Taking ??? alendronate (FOSAMAX) 70 mg Tablet Take 70 mg by mouth every 7 days. Indications: TAKES EITHER TUESDAY OR TUESDAY Taking ??? multivitamin (THERAGRAN) Tablet Take 1 tablet by mouth daily. 11/28/2019 ??? ubidecarenone/omega-3/vit E (CO C-[id number] E-FISH OIL ORAL) Take 1 tablet by mouth daily. 11/28/2019 Allergies: Allergies Allergen Reactions ??? Ketorolac Other (See Comments) Other reaction(s): black stools, nausea and vomting ??? Codeine Nausea Only ??? Hydrocodone Nausea Only ??? Hydromorphone Nausea Only ??? Tramadol Nausea Only Family History: Family History Problem Relation Age of Onset ??? Alzheimer Disease Mother ??? Prostate Cancer Father ??? Lymphoma Brother ??? Breast Cancer Neg Hx Social History and Habits: Social History Tobacco Use ??? Smoking status: Never Smoker ??? Smokeless tobacco: Never Used Substance Use Topics ??? Alcohol use: Yes Comment: SELDOM ??? Drug use: Never Last Set of Vitals and range of vitals over past 24 hours: Last value Range last 24 hrs Temperature Temp: 36.2 ??C (97.2 ??F) Temp: [36.2 ??C (97.2 ??F)] Heart Rate Heart Rate: 89 Heart Rate: [89] Blood Pressure BP: (!) 165/92 BP: (165)/(92) Respiratory Rate Resp: 18 Resp: [18] SpO2 SpO2: 99 % SpO2: [99 %] Physical Exam: Physical Exam Constitutional: General: She is not in acute distress. Appearance: Normal appearance. HENT: Head: Normocephalic and atraumatic. Right Ear: Tympanic membrane, ear canal and external ear normal. Left Ear: Tympanic membrane, ear canal and external ear normal. Nose: Nose normal. No congestion. Mouth/Throat: Pharynx: No oropharyngeal exudate or posterior oropharyngeal erythema. Eyes: Extraocular Movements: Extraocular movements intact. Conjunctiva/sclera: Conjunctivae normal. Pupils: Pupils are equal, round, and reactive to light. Neck: Musculoskeletal: Normal range of motion and neck supple. Cardiovascular: Rate and Rhythm: Normal rate and regular rhythm. Pulses: Normal pulses. Heart sounds: Normal heart sounds. No murmur. No gallop. Pulmonary: Effort: Pulmonary effort is normal. Breath sounds: Normal breath sounds. No wheezing or rales. Abdominal: General: Bowel sounds are normal. Palpations: Abdomen is soft. Tenderness: There is no abdominal tenderness. There is no guarding. Musculoskeletal: Comments: Right Hip Exam: Inspection: no ecchymosis, no erythema, positive edema laterally with subcutaneous fluctuance Palpation: very tender to palpation along greater trochanteric bursal region and proximal ITB ROM: Lateral and posterior lateral pain to FABE, maintaining good flexion and IR and ER Strength: lateral hip pain to resisted ABD and flexion but with good strength to resisted flexion and ADD Orthopedic testing: unable to perform Trendelenberg due to pain Skin: General: Skin is warm and dry. Capillary Refill: Capillary refill takes less than 2 seconds. Neurological: General: No focal deficit present. Mental Status: She is alert and oriented to person, place, and time. Psychiatric: Mood and Affect: Mood normal. Behavior: Behavior normal. Judgment: Judgment normal. Laboratory (Last 24 Hours): Last 3 wbc, hgb, hct plt 11/23/2019 WBC 5.1 HGB 12.6 HCT 36.5 PLATELET 254 Last 3 Lytes 11/23/2019 NA 135 K 4.1 CL 97 CO2 27 BUN 22 CREATININE 0.9 Studies/Imaging reviewed in eDH. Remarkable for the following: XR Pelvis & Lateral Hip RIGHT: IMPRESSION Total hip arthroplasty on the right without complication. 11/29/2019: Non-DH EKG: EKG unchanged Discussed Advanced Directives and Code Status. The patient wishes to be Full Code. Plan: Patient medically cleared to undergo surgical intervention. No medical changes since evaluation with PCP on 11/27/2019. Prepare for surgery at [facility]. Planned Procedure: right hip arthroscopic greater trochanter bursectomy with IT band release . DAQUAN Harman 01/23/2020 documented in this encounter Miscellaneous Notes * Op Note - Claudio Cox MD - 01/23/2020 12:59 PM EDT [facility] Operative Note [facility] [address] [place] [address] Patient Name: Jigna Espinoza : [id number] MR#: [id number] Case Date: 01/23/2020 Case Scheduled Time: 1058 Surgeon: Surgeon(s) and Role: * Claudio Cox MD - Primary * Regla Cox PA - Physician Perfect Binder Feeder Offbearer Preoperative diagnosis: s/p right total hip arthroplasty and right gluteus medius tendon repair with painful adherent fibrotic tissue and subcutaneous level and greater trochanteric bursal level and iliotibial band incarceration Postoperative diagnosis: same, gluteus medius repair intact and well healed Procedure: Right hip arthroscopic debridement of adherent fibrotic tissue at level of greater trochanteric bursa, arthroscopic release of incarcerated iliotibial band from adherent fibrotic tissue, percutaneous release of adherent fibrotic tissue subcutaneous level Anesthesia: Spinal Estimated Blood Loss: 5 cc Specimens removed during surgery: None Drains: None Surgical Closure: Primary Closure - skin incision is completely closed without any wires, madiha, drains or other devices Disposition: awakened from anesthesia, extubated and taken to the recovery room in a stable condition, having suffered no apparent untoward event. Condition: doing well without problems Complications: None Hardware: None Findings: Above The patient is a very pleasant active 74-year-old female. She had undergone staged previous right hip gluteus medius tendon tear repair with Dr. Claudio Cox at [facility]. She then underwent total hip arthroplasty with Dr. Silveira at [facility] through a direct anterior approach. The patient initially had been progressing well but began developing increased pain on the lateral aspect of her right hip. This pain then began to interfere with her ability to progress withtherapy for strengthening and gait training. She was seen in orthopedic surgery clinic at [facility] and attempted with conservative therapy including soft tissue massage, physical therapy, and ultrasound-guided cortisone injection. When the pain worsened it was felt the patient would benefit by undergoing arthroscopic debridement of adherent fibrotic tissue. An MRI had been obtainedwhich was positive for a great deal of inflammatory changes within the greater trochanteric bursal space as well as fluid accumulation posterior to this. There were also changes consistent with adherent fibrotic tissue. The options risks and benefits procedure were thoroughly discussed with the patient. The patient understood these options risks and benefits and consented to surgery. She was prepared for surgery at [facility]. The patient was brought to [facility] on January 23, 2020. She was brought to the operatingroom. She was placed on the operating room table in supine position. She was then placed under adequate general endotracheal intubation anesthesia by anesthesiology. Patient was given 2 g of Ancef IVprior to beginning of surgery. Patient was given 1 g of transemic acid IV prior to beginning of surgery as well. Patient had Venodyne boots placed on both lower extremities throughout the entirety ofthe case to decrease risk of deep vein thrombosis. Patient's feet and heels were placed in well-padded eggcrate type padding to protect the skin. Patient's right lateral hip and thigh were then prepped and draped in the usual sterile manner. It should be noted that all providers present within the operating room were appropriate personal protective equipment to reduce risk of transmission for COVID-19 pandemic precautions. The previous longitudinal lateral incision over the greater trochanteric region was clearly demarcated using blue skin pen. There was obvious adherence of the subcuticular layer to the underlying subcutaneous layer. An 11 blade was used to make the proximal and distal portal incisions. These were placed at the proximal and distal aspects of the previous incision used for the gluteus medius repair. At this point Metzenbaum scissor technique was then used to lyse adherent fibrotic tissue within the subcutaneous space. Once this had been accomplished an 11 blade was then used again to complete the portal incision approach proximally and distally through the iliotibial band. A blunt obturator was then passed in the interval medial to the iliotibial band and lateral to the greater trochanter. There was found to be a great deal of adherent fibrotic tissue throughout the entire area. The trocar for water inflow, outflow, and camera was then brought to this level through the distal portal. The area was then infused with sterile normal saline water. There were found to be a great deal of adherent fibrotic tissue incarcerating and adhering the iliotibial band to the lateral aspect of the greater trochanter. Initiation of debridement of adherent fibrotic tissue was begun using a combination of an up biter, a 4.5 full-radius shaver, and a 90 degree Mytek Vapor ablation wand. Once a thorough debridement had been performed with the proximal portal as the working portal the trocar for water inflow and outflow and care was then brought through the proximal portal to the level lateral to the greater trochanter and medial to the iliotibial band and this was reinfused with sterile normal saline water. Again there was found to be a great deal of adherent fibrotic tissue distally as well. Again using combination of an upbiter, a 4.5 full-radius shaver, and a 90 degree MytekVapor ablation wand, all adherent fibrotic tissue was lysed and debrided. This nicely released the previously adhered iliotibial band creating anatomic space and excursion of the iliotibial band. Thegreater trochanter at the level of the gluteus medius and minimus insertions was probed. Previous sutures were found to be intact as well as the gluteus medius and gluteus minimus tendons were found to be well-healed with complete coverage and without fraying or tearing whatsoever. The area was thoroughly irrigated using copious amounts of sterile normal saline water. All instruments were removed. The area of the lateral hip was then infused with a combination of Exparel long- acting liposomal bupivacaine mixed with 1/2% Marcaine solution without epinephrine as per industry instructions. Portal incisions were closed using simple buried 4-0 Monocryl suture. These were covered with sterile Steri-Strips. This is covered sterile Guero Silverlon Band-Aids. This cover sterile 4 x 4. This coversterile ABD pad. This is covered with tape. Patient was carefully extubated as per COVID-19 pandemic precautions. Patient was then carefully transferred to her hospital bed. She was taken to postoperative recovery room in stable condition. Infection Bundle used? N/A Regla Cox (Physician Perfect Binder Feeder Offbearer [[id number]]) worked under my direction for the duration of the operative session. The orthopedic assistant adequately prepped the operative site and maintained the best possible exposure of anatomy incident to the procedure. Claudio Cox MD 01/23/2020 documented in this encounter Plan of Treatment Not on file documented as of this encounter Procedures Procedure Name Priority Date/Time Associated Diagnosis Comments ANNMARIE SJ 01/23/2020 11:07 AM EDT Status post total hip replacement, right Iliotibial band syndrome, right Pain in right hip [facility] 01/23/2020 11:07 AM EDT Status post total hip replacement, right Iliotibial band syndrome, right Pain in right hip Unlisted Procedure Arthroscopy (38675) 01/23/2020 11:07 AM EDT Status post total hip replacement, right Iliotibial band syndrome, right Pain in right hip documented in this encounter Visit Diagnoses Diagnosis S/P hip arthroscopy; right greater troch bursectomy; 01/23/2020; Dr. Cox S/P hip arthroscopy; right greater troch bursectomy; 01/23/2020; Dr. Cox documented in this encounter Administered Medications Inactive Administered Medications - up to 3 most recent administrations Medication Order MAR Action Action Date Dose Rate Site fentaNYL 50 mcg/mL multi-dose injection 25-50 mcg, Intravenous, EVERY 5 MIN PRN, Starting on Tue01/23/20 at 1304, Until Tue01/23/20 at 1523, Pain, Give 25 mcg every 5 minutes PRN for mild to moderate pain (1-5) Give 50 mcg every 5 minutes PRN for moderate to severe pain (6-10). Hold for respiratory rate less than 10 per minute. Maximum dose 250 mcg over one hour. If ordered with hydromorphone or morphine, give hydromorphone or morphine first and use fentanyl for breakthrough pain., PACU Recovery, Routine Given 01/23/2020 2:26 PM EDT 25 mcg Given 01/23/2020 2:04 PM EDT 25 mcg heparin (Porcine) subcutaneous injection 5,000 Units 5,000 Units, Subcutaneous, ONCE, 1 dose, On Tue01/23/20 at 1330, PACU Recovery, Routine Given 01/23/2020 1:54 PM EDT 5,000 Units Left Lower Quadrant HYDROcodone-acetaminophen ([place]) 5-325 mg per tablet 1 tablet 1 tablet, Oral, EVERY 4 HOURS PRN, Starting on Tue01/23/20 at 1304, Until Tue01/23/20 at 1523, Pain, Initial dose 5 mg. If pain control not adequate in 60 minutes, give an additional 5 mg, PACU Recovery, Routine Given 01/23/2020 2:31 PM EDT 1 tablet ondansetron (ZOFRAN) injection 4 mg 4 mg, Intravenous, EVERY 30 MIN PRN, Starting on Tue01/23/20 at 1304, Until Tue01/23/20 at 1523, Nausea, May repeat 4 mg once in 30 minutes. If multiple antiemetics ordered, use ondansetron first and if ineffective use prochlorperazine second and if ineffective use promethazine, PACU Recovery, Routine Given 01/23/2020 1:52 PM EDT 4 mg documented in this encounter Active and Recently Administered Medications Times are shown in EDT. Scheduled Medication Order 01/21/2020 01/22/2020 01/23/2020 ceFAZolin (Ancef) 2g in dextrose 5% 100 mL (CANCELED) 2 g, Intravenous, EVERY 4 HOURS, First dose on Tue01/23/20 at 1015, Until Discontinued, Administer over 30 Minutes, Administer over 30 minutes, Redose after 4 hours., Intra-Operative (Intra-Procedure), Indication for (Active or Suspected): Prophylaxis 1015 (Due)1127 (Give n - Provider: Humphrey Schmitz CRNA)1415 (Due) heparin (Porcine) subcutaneous injection 5,000 Units (COMPLETED) 5,000 Units, Subcutaneous, ONCE, 1 dose, On Tue01/23/20 at 1330, PACU Recovery, Routine 1354 (Given - Provid er: Lucia Gomez RN) Continuous Medication Order 01/21/2020 01/22/2020 01/23/2020 lactated ringers infusion (CANCELED) 1,000 mL, at 50 mL/hr, Intravenous, CONTINUOUS, Starting on Tue01/23/20 at 1115, Until Tue01/23/20 at 1523, Day of Surgery (Day of Procedure) 1107 (New Bag - Prov ider: Humphrey Schmitz CRNA)1205 (Anesthesia Volume Adjustment - Provider: Humhprey Schmitz CRNA) PRN Medication Order 01/21/2020 01/22/2020 01/23/2020 BUpivacaine (PF) (MARCAINE) 0.5 % (5 mg/mL) injection (CANCELED) ONCE PRN, Starting on Tue01/23/20 at 1210, Until Tue01/23/20 at 1522, Intra-Operative (Intra-Procedure), Routine 1210 (Given - Provid er: Claudio Cox MD) BUpivacaine liposome (PF) (EXPAREL) 1.3 % (13.3 mg/mL) injection for infiltration (CANCELED) ONCE PRN, Starting on Tue01/23/20 at 1210, Until Tue01/23/20 at 1522, Intra-Operative (Intra-Procedure) 1210 (Given - Provid er: Claudio Cox MD) fentaNYL 50 mcg/mL multi-dose injection (CANCELED) 25-50 mcg, Intravenous, EVERY 5 MIN PRN, Starting on Tue01/23/20 at 1304, Until Tue01/23/20 at 1523, Pain, Give 25 mcg every 5 minutes PRN for mild to moderate pain (1-5) Give 50 mcg every 5 minutes PRN for moderate to severe pain (6-10). Hold for respiratory rate less than 10 per minute. Maximum dose 250 mcg over one hour. If ordered with hydromorphone or morphine, give hydromorphone or morphine first and use fentanyl for breakthrough pain., PACU Recovery, Routine 1404 (Given - Provid er: Lucia Gomez RN)1426 (Given - Provider: Lucia Gomez RN) HYDROcodone-acetaminophen ([place]) 5-325 mg per tablet 1 tablet (CANCELED) 1 tablet, Oral, EVERY 4 HOURS PRN, Starting on Tue01/23/20 at 1304, Until Tue01/23/20 at 1523, Pain, Initial dose 5 mg. If pain control not adequate in 60 minutes, give an additional 5 mg, PACU Recovery, Routine 1431 (Given - Provid er: Lucia Gomez RN) ondansetron (ZOFRAN) injection 4 mg (CANCELED) 4 mg, Intravenous, EVERY 30 MIN PRN, Starting on Tue01/23/20 at 1304, Until Tue01/23/20 at 1523, Nausea, May repeat 4 mg once in 30 minutes. If multiple antiemetics ordered, use ondansetron first and if ineffective use prochlorperazine second and if ineffective use promethazine, PACU Recovery, Routine 1352 (Given - Provid er: Lucia Gomez RN) documented in this encounter Care Teams Social Media Editor Relationship Specialty Start Date End Date Ritu Bolaños APRN [address] [place] [address] PCP - General 05/07/15 02/03/22 documented as of this encounter
--- OUTSIDE RECORDS SUMMARY | 2024-04-12 15:15 | XMS_ITS | Encounter Summary ---
[place] [address] Care Team Providers Care Food Sales Clerk Name Role Phone Ritu Bolaños APRN Primary Care Provider [phone] Encounter Details Date Type Department Care Team (Latest Contact Info) Description 03/24/2020 10:55 AM EDT Ancillary Procedure [facility] [address] [place] [address] Claudio Cox MD [address] [place] [address] S/P hip arthroscopy; right greater troch bursectomy; 01/23/2020; Dr. Cox Social History Tobacco Use Types Packs/Day Years Used Date Smoking Tobacco: Former Cigarettes Q uit: 1970 Smokeless Tobacco: Never Alcohol Use Standard [...] Name Priority Date/Time Associated Diagnosis Comments XR KNEE STANDING ALIGNMENT Routine 03/24/2020 11:07 AM EDT S/P hip arthroscopy; right greater troch bursectomy; 01/23/2020; Dr. Cox documented in this encounter Results * XR Knee Standing Alignment (Generic) (03/24/2020 11:07 AM EDT) Anatomical Region Laterality Modality N/A Digital Radiogra phy Impressions 03/24/2020 11:56 AM EDT The right femur (including a prosthesis) is slightly longer than the left. Thank you for letting us participate in the care of this patient. For questions regarding this report, please contact the number below. ? Narrative 03/24/2020 11:56 AM EDT EXAMINATION: XR KNEE STANDING ALIGNMENT (GENERIC) CLINICAL HISTORY: assess leg length TECHNIQUE: Separate images of the pelvis, knees and feet were acquired in the AP projection with the patient standing. These images were stitched together to form a composite image of the pelvis and legs allowing for evaluation of lower extremity alignment in the weight bearing position. COMPARISON: None FINDINGS: There is very mild lateral deviation of the weightbearing axis of the right leg and normal alignment of the left leg. A total right hip prosthesis is present. Leg length Right femur: 47.8 cm Right tibia: 37 cm Right leg (excluding joint space): 84.8 cm Left femur: 46.5 cm Left tibia: 37.3 cm Left leg (excluding joint space): 83.8 cm Procedure Note Brady Alvarez MD - 03/24/2020 EXAMINATION: XR KNEE STANDING ALIGNMENT (GENERIC) CLINICAL HISTORY: assess leg length TECHNIQUE: Separate images of the pelvis, knees and feet were acquired inthe AP projection with the patient standing. These images were stitched togetherto form a composite image of the pelvis and legs allowing for evaluation oflower extremity alignment in the weight bearing position. COMPARISON: None FINDINGS: There is very mild lateral deviation of the weightbearing axis of theright leg and normal alignment of the left leg. A total right hip prosthesis is present. Leg length Right femur: 47.8 cm Right tibia: 37 cm Right leg (excluding joint space): 84.8 cm Left femur: 46.5 cm Left tibia: 37.3 cm Left leg (excluding joint space): 83.8 cm IMPRESSION The right femur (including a prosthesis) is slightly longer than theleft. Thank you for letting us participate in the care of this patient. Forquestions regarding this report, please contact the number below. Claudio Cox MD IMG DX ORDERABLES documented in this encounter Visit Diagnoses Diagnosis S/P hip arthroscopy; right greater troch bursectomy; 01/23/2020; Dr. Cox documented in this encounter Care Teams Food Sales Clerk Relationship Specialty Start Date End Date Ritu Bolaños APRN [address] [place] [address] PCP - General 05/07/15 02/03/22 documented as of this encounter
--- OUTSIDE RECORDS SUMMARY | 2024-04-12 15:15 | XMS_ITS | Encounter Summary ---
[place] [address] Care Team Providers Care Metalsmith Name Role Phone Ritu Bolaños APRN Primary Care Provider [phone]- [phone] Reason for Visit * Reason Onset Date Comments Medication Refill 07/05/2019 Encounter Details Date Type Department Care Team (Late st Contact Info) Description 07/05/2019 Refill Orthopaedics at [facility] [address] [place] [address] Eric Donahue MD [address] [place] [address] Social History Tobacco Use Types Packs/Day Years [...] as of this encounter Miscellaneous Notes * Telephone Encounter - Elizabeht Holguin RN - 07/05/2019 9:[address] donahue, deisi to try low dose gababpentin, 300mg nightly. Will send in small amount for patient to try. Patient agrees. documented in this encounter Plan of Treatment Not on file documented as of this encounter Visit Diagnoses Not on filedocumented in this encounter Care Teams Metalsmith Relationship Specialty Start Date End Date Ritu Bolaños APRN [address] [place] [id number] PCP - General 05/07/15 02/03/22 documented as of this encounter
--- OUTSIDE RECORDS SUMMARY | 2024-04-12 15:15 | XMS_ITS | Encounter Summary ---
Author Organization [facility] [place] [address] Care Team Providers Care Underwriting Analyst Name Role Phone Ritu Bolaños APRN Primary Care Provider [phone] Reason for Visit * Auth/Cert Specialty Diagnoses / Procedures Referred By Lennox t Referred To Contact Diagnoses s/p total hip arthroplasty with IT band entrapment Procedures PRO UNLISTED PROCEDURE ARTHROSCOPY ARTHROSCOPIC GREATER TROCHANTERIC BURSECTOMY W ILIOTIBIAL BAND RELEASE MODIFIER [facility] [employer] [facility] ORTHO MODIFIER MITEK Referral ID Status Reason Start Date Expiration Date Visits Re quested Visits Authorized [id number] 1 1 Encounter Details Date Type Department Care Team (Late st Contact Info) Description 01/23/2020 10:58 AM EDT - 01/23/2020 1:43 PM EDT Surgery Operating Room [address] [address] Claudio Cox MD [address] [place] [address] ARTHROSCOPIC GREATER TROCHANTERIC BURSECTOMY W ILIOTIBIAL BAND RELEASE (WRVU 12.47) Social History Tobacco Use Types Packs/Day Years [...] Sign Reading Time Taken Comments Blood Pressure 136/82 01/23/2020 1:40 PM EDT Pulse 78 01/23/2020 1:40 PM EDT Temperature 36.6 ??C (97.9 ??F) 01/23/2020 1:28 PM ED T Respiratory Rate 20 01/23/2020 1:40 PM EDT Oxygen Saturation 96% 01/23/2020 1:40 PM EDT Inhaled Oxygen Concentration - - [...] unavailable, you can use an alcohol-based hand director risk to clean your hands. ??? Rremove your [...] unless otherwise instructed by your physician, physician tutoring assistant, or nurse. ??? Steri-strips have been [...] o Please avoid the use of these ogrj-nfs-vdiyyrr medications if you have an allergy or [...] the duration of pain medication use. o Zbro-cxv-fdqzkpz options: Colace 100 mg twice daily or [...] that fills the prescription. ??? Only take pgex-vdy-lgyhcly or prescription medicine for pain, discomfort or [...] pain with breathing. SMOKING CESSATION INFORMATION: ??? [place] QUITLINE: ??? [place] QUITLINE: ??? [email or web address] If you smoke, stop now! Smoking may impede healing. MAKE SURE YOU: ??? Understand these instructions. ??? Will seek medical care if you are feeling poor, or get worse. ??? Will call the Orthopaedic Department with questions or concerns at . We are very pleased you have decided to come to [facility] and the Orthopaedic Department for your care [...] as needed fluticasone propionate (FLONASE) 50 mcg/actuation [place], Suspension 2 sprays by Each Nare route nightly. Magnesium Oxide 250 mg magnesium Tablet Take 2 tablets by mouth daily. multivitamin (THERAGRAN) Tablet Take 1 tablet by mouth daily. acetaminophen (Tylenol) 500 mg Tablet Take 1-2 tablets by mouth every 8 hours as needed (post-op pain). DO NOT take more than 3000 mg Tylenol from all sources 0 01/23/2020 10/02/2020 HYDROcodone-acetaminop hen (Rice) 5-325 mg Tablet Take 1 tablet by [...] OR Tuesday10/02/2018 05/06/2020 ubidecarenone/omega-3/ vit E (CO [id number] E-FISH OIL ORAL) Take 1 tablet by [...] void. Patient is now getting dressed. This chart writer spoke with her , Theo, after permission [...] Cox MD - 01/23/2020 10:32 AM EDT [facility] History and Physical Note Problem List-based Assessment [...] of her orthopedic surgeon Dr. Eric Soto??at [facility] who performed her hip replacement in June 2019. ??She has had pain at the greater trochanteric region of her right hip prior to and ever since abductor surgical repair performed by Dr. Cox in May 2017. ??In the interim she is also had 3 back surgeries including laminectomy, and 2 fusion surgeries all performed by Dr. Nick Fontanez??of [facility] neurologyand neurosurgery. ??Patient has pain with ambulation [...] of physical therapy near her home in [facility]. ??She feels like the exercises given [...] 01/30/2019 CT Guided Injection SI Joint 01/30/2019 [facility] RAD CAT SCAN ??? CT GUIDED JOINT INJECTION 09/04/2018 CT Guided Joint Injection 09/04/2018 [facility] RAD CAT SCAN ??? HIP SURGERY 05/25/2017 ??? HYSTERECTOMY ??? JOINT REPLACEMENT Right 06/19/2019 THR ??? OVARY REMOVAL ??? PRO TOTAL HIP ARTHROPLASTY Right 06/19/2019 @TOTAL HIP ARTHROPLASTY, ANTERIOR APPROACH (WRVU 20.72) performed by Eric Soto MD at [facility] MA[facility] OR ??? SPINAL FUSION 01/2018 ??? UPPER GASTROINTESTINAL ENDOSCOPY AND 04/04/2019 ??? XR FLUORO INJECTION DRAINAGE JOINT LG RIGHT Right 03/16/2019 XR Fluoro Guided Joint Injection Large Right 03/16/2019 [facility] RAD XRAY Medications: Medications Prior to [...] Taking ??? fluticasone propionate (FLONASE) 50 mcg/actuation [place], Suspension 2 sprays by Each Nare routedaily. Taking ??? Magnesium Oxide 250 mg magnesium Tablet Take 2 tablets by mouth daily. Taking ??? alendronate (FOSAMAX) 70 mg Tablet Take 70 mg by mouth every 7 days. Indications: TAKES EITHER TUESDAY OR TUESDAY Taking ??? multivitamin (THERAGRAN) Tablet Take 1 tablet by mouth daily. 11/28/2019 ??? ubidecarenone/omega-3/vit E (CO [id number] E-FISH OIL ORAL) Take 1 tablet by [...] PCP on 11/27/2019. Prepare for surgery at [facility]. Planned Procedure: right hip arthroscopic greater trochanter bursectomy with IT band release . DAQUAN Harman 01/23/2020 documented in this encounter Miscellaneous Notes * Op Note - Claudio Cox MD - 01/23/2020 12:59 PM EDT [facility] Operative Note [facility] [address] [id number] Patient Name: Jigna Espinoza : [id number] MR#: [id number] Case Date: 01/23/2020 Case Scheduled Time: 1058 Surgeon: Surgeon(s) and Role: * Claudio Cox MD - Primary * Regla Cox PA - Physician Big Data Platform Architect Preoperative diagnosis: s/p right total hip arthroplasty [...] tear repair with Dr. Claudio Cox at [facility]. She then underwent total hip arthroplasty with Dr. Silveira at [facility] through a direct anterior approach. The patient initially had been progressing well but began developing increased pain on the lateral aspect of her right hip. This pain then began to interfere with her ability to progress withtherapy for strengthening and gait training. She was seen in orthopedic surgery clinic at [facility] and attempted with conservative [...] surgery. She was prepared for surgery at [facility]. The patient was brought to [facility] on January 23, 2020. She was brought [...] with sterile Steri-Strips. This is covered sterile [place] Silverlon Band-Aids. This cover sterile 4 x 4. This coversterile ABD pad. This is covered with tape. Patient was carefully extubated as per COVID-19 pandemic precautions. Patient was then carefully transferred to her hospital bed. She was taken to postoperative recovery room in stable condition. Infection Bundle used? N/A Regla Cox (Physician Big Data Platform Architect [[id number]]) worked under my direction for the duration of the operative session. The tutoring assistant adequately prepped the operative site and [...] Pain in right hip Unlisted Procedure Arthroscopy (87205) 01/23/2020 11:07 AM EDT Status post total hip replacement, right Iliotibial band syndrome, right Pain in right hip documented in this encounter Visit Diagnoses Diagnosis S/P hip arthroscopy; right greater troch bursectomy; 01/23/2020; Dr. Cox S/P hip arthroscopy; right greater troch bursectomy; 01/23/2020; Dr. Cox Status post total hip replacement, right Iliotibial band syndrome, right Pain in right hip Pain in joint, pelvic region and thigh documented in this encounter Administered Medications Inactive Administered Medications - up to 3 most recent administrations Medication Order MAR Action Action Date Dose Rate Site BUpivacaine (PF) (MARCAINE) 0.5 % (5 mg/mL) injection ONCE PRN, Starting on Tue01/23/20 at 1210, Until Tue01/23/20 at 1522, Intra-Operative (Intra-Procedure), Routine Given 01/23/2020 12:10 PM EDT 25 mLs 19- Surgical Site BUpivacaine liposome (PF) (EXPAREL) 1.3 % (13.3 mg/mL) injection for infiltration ONCE PRN, Starting on Tue01/23/20 at 1210, Until Tue01/23/20 at 1522, Intra-Operative (Intra-Procedure) Given 01/23/2020 12:10 PM EDT 20 mLs 19- Surgical Site fentaNYL 50 mcg/mL multi-dose injection 25-50 [...] EDT 5,000 Units Left Lower Quadrant HYDROcodone-acetaminophen (Rice) 5-325 mg per tablet 1 tablet 1 [...] Schmitz CRNA)1205 (Anesthesia Volume Adjustment - Provider: Humphrey Schmitz CRNA) PRN Medication Order 01/21/2020 01/22/2020 [...] (Given - Provider: Lucia Gomez RN) HYDROcodone-acetaminophen (Rice) 5-325 mg per tablet 1 tablet (CANCELED) 1 tablet, Oral, EVERY 4 HOURS PRN, Starting on Tue01/23/20 at 1304, Until Tue01/23/20 at 1523, Pain, Initial dose 5 mg. If pain control not adequate in 60 minutes, give an additional 5 mg, PACU Recovery, Routine 1431 (Given - Provid er: Lucia Gomez, CHATO) ondansetron (ZOFRAN) injection 4 mg (CANCELED) 4 mg, Intravenous, EVERY 30 MIN PRN, Starting on Tue01/23/20 at 1304, Until Tue01/23/20 at 1523, Nausea, May repeat 4 mg once in 30 minutes. If multiple antiemetics ordered, use ondansetron first and if ineffective use prochlorperazine second and if ineffective use promethazine, PACU Recovery, Routine 1352 (Given - Provid er: Lucia Gomez, CHATO) documented in this encounter Care Teams Underwriting Analyst Relationship Specialty Start Date End Date Ritu Bolaños APRN [address] [place] [id number] PCP - General 05/07/15 02/03/22 documented as of this encounter
--- OUTSIDE RECORDS SUMMARY | 2024-04-12 15:15 | XMS_ITS | Encounter Summary ---
Author Organization [facility] [place] [address] Care Team Providers Care Manual Training Teacher Name Role Phone Ritu Bolaños APRN Primary Care Provider [phone]- [phone] Reason for Visit * Consultation (Routine) - Closed Specialty Diagnoses / Procedures Referred By Lennox t Referred To Contact Sports Medicine Diagnoses Pain in left hip Presence of left artificial hip joint Christiana Gaspar PA [address] [place] [address] Roberto Carlos Aguilar MD [address] [facility] [place] [address] Referral ID Status Reason Start Date Expiration Date V isits Requested Visits Authorized [id number] Closed Consult, Test & Treat 10/10/2019 10/09/2020 1 1 Encounter Details Date Type Department Care Team (Late st Contact Info) Description 10/10/2019 3:15 PM EST Office Visit Sports Medicine at [facility] [address] [place] [address] Roberto Carlos Aguilar MD [address] [facility] [place] [address] Trochanteric bursitis, right hip (Primary Dx); Pain in left hip; Presence of left artificial hip joint; Pain in right hip; Presence of right artificial hip joint Social History Tobacco Use Types Packs/Day Years [...] Sign Reading Time Taken Comments Blood Pressure 142/84 10/10/2019 3:03 PM EST Pulse 74 10/10/2019 3:03 PM EST Temperature - - Respiratory Rate 16 10/10/2019 3:03 PM EST Oxygen Saturation 97% 10/10/2019 3:03 PM EST Inhaled Oxygen Concentration - - Weight 60.3 kg (133 lb) 10/10/2019 3:03 PM EST Height 162.6 cm (5' 4) 10/10/2019 3:03 PM EST Body Mass Index 22.83 10/10/2019 3:03 PM EST documented in this encounter Patient Instructions * Patient Instructions* Roberto Carlos Aguilar MD - 10/10/2019 3:15 PM EST Post cortisone injection instructions Relative rest of affected area for 48 hours -do not overdo it with significant increase in activityif you are feeling better after the injection. This can lead to a steroid flare which can cause significant to dramatic pain and swelling for several days. Joint may feel slightly swollen or achy after injection -may last up to 24 to 48 hours For patients who are diabetic or prediabetic, cortisone may cause a transient elevation of blood sugar. Cortisone may cause temporary headache, facial flushing, jittery feeling, anxious feeling, insomnia, increased energy -if these side effects occur, they usually resolve within 24 to 48 hours Anything that feels slightly different than normal physically or psychologically may well be related to the cortisone injection. For severe symptoms or symptoms lasting longer than 48 hours please contact our office. Immediate relief of pain status post injection is usually the result of numbing medication/lidocaine. This will usually wear off with in 1 to 2 hours. Cortisone usually takes 36 to 72 hours to start to take effect and provide pain relief. Gradual return to normal activities after 72 hours documented in this encounter Progress Notes * Roberto Carlos Aguilar MD - 10/10/2019 3:15 PM EST CC - Right lateral hip pain HPI - Jigna Espinoza is a 74 y.o. female who presents with a 2 year history of Right lateral hip pain. She presents today at the request of her orthopedic surgeon Dr. Eric Soto at [facility] who performed her hip replacement in June 2019. She has had pain at the greater trochanteric region of her right hip prior to and ever since abductor surgical repair performed by Dr. Gallo in May 2017. In the interim she is also had 3 back surgeries including laminectomy, and 2 fusion surgeries all performed by Dr. Nick Fontanez of [facility] neurology and neurosurgery. Patient has pain with ambulation along with feeling of weakness and instability and snapping in the lateral aspect of her right hip when she bears weight. She is to be a very avid runner and athlete participating in 5K runs. Her last 5K was in 2015. She is now been able to run since her multiple surgeries. She is back to walking 1 mile per day on a treadmill along with some light weights. She does a little bitof gardening but is having to be very careful with activities. She does take a generic version of Celebrex but does not feel like it gives her a lot of relief. She is not having any numbness or tingling down the legs and she denies saddle anesthesia, incontinence of bladder or bowel or numbness or tingling below the waist. She just finished 20 sessions of physical therapy near her home in [facility]. She feels like the exercises given to her PT often make her hip feel worse. There is been focus on mobilizing the iliotibial band and lateral hip region Injury/Trauma: yes Date of injury - surgery - abductor repair R hip 06/05, JACQUIE 07/07 Course since onset - has worsened slightly Treatments to date - rest, NSAIDs, physical therapy, injection therapy, surgery, home exercise program and tylenol Imaging - x ray Goals for today's visit: decrease pain, improve function, return to exercise, improve sleep and getrid of cane with ambulation Physical Examination: Lean, spry age-appropriate woman alert and oriented x3 no acute distress. Sitting comfortably with her Back [id number] surgical scars. No tenderness palpation or fist percussion along the spine orSI joints. Right gluteus medius is very tender from origin to insertion with point of maximal intensity at the greater trochanter on the right side. No similar tenderness on the left. There is a snapping and palpable subluxation with flexion and extension of the right hip at the left lateral greater trochanteric region consistent with iliotibial band subluxation. This is tender when it occurs. Patient has sharp discomfort in flexion when the iliotibial is subluxed and sequestered posterior to the greater trochanter. When performed gently we can avoid this subluxation with flexion and slight abduction in the supine position. She has reasonable range of motion on abduction and abduction in flexion with discomfort at end range of both no similar tenderness on the left where she has normal range of motion without pain. Straight leg raise is negative bilaterally. Strength 5 out of 5 and symmetric on quadricep, hamstring great toe testing bilaterally. Sensation to sharp nonoptical discrimination symmetric and intact bilaterally. Reflexes 1+ in the right patella, 2+ left patella, 1+ right and left Achilles tendons bilaterally. Gait is antalgic with slight right-sided Trendelenburg. Proprioceptive deficiency right greater than left on 1 foot in stance with eyes open, cannot perform with eyes closed. Patient can do a 2 footed and 1 foot and toe raise with slightly more difficulty on the right as compared to the left. Ultrasound of the lateral hip demonstrates a significant hypoechoic fluid collection just superficial to the greater trochanter consistent with possible inflamed trochanteric bursa. There is some hypoechoic detritus floating in the anechoic fluid. The gluteus medius insertion is thickened secondaryto previous surgery and likely tendinosis. Surgical stitches are visible on ultrasound as well. There is no visible disruption or retraction of gluteus medius, gluteus job or gluteus minimus. No visible distortion or thickening of piriformis, obturator or Gemellus Assessment: Trochanteric bursitis right hip status post abductor surgical repair in 2017 and hip replacement surgery in 2019. Of note patient also has significant lumbar spondylosis, spondylolisthesis and is status post laminectomy and 2 surgical fusion procedures in 2018. Plan: Patient is frustrated by her persistent pain and inability to get back to activities that sheenjoyed prior to her surgery. She is hopeful for some relief. We discussed the possibility of bursal aspiration for diagnostic and hopefully therapeutic purposes. She would like to proceed with this.We did discuss at length the risks including infection, vascular injury, nerve injury, worsening ofsymptoms, failure to improve in the significance of an infection in a prosthetic joint. She acceptsthese risks and would like to proceed. Procedure:Ultrasound-guided right trochanteric bursal injection Risks reviewed-infection, allergic reaction, vascular injury, nerve injury, worsening of symptoms, failure to improve, side effects from steroids. Patient consents to procedure Lateral decubitus position. Gluteus medius and trochanteric bursa identified using ProvidajobP9 ultrasound with low-frequency curvilinear probe. After sterile prep with chlorhexidine and alcohol, anesthetized a wheal under the skin using 1% lidocaine. We then switched to a 3.5 inch 18 g needle, and advanced the needle tip under ultrasound guidance in long axis view to the trochanteric bursa . Aspirated 4.5 cc blood-tinged serous fluid from the bursa, decompressing the bursa completely. I then switched syringes and injected 1 mL betamethasone, 1 mL dexamethasone, 1 mL lidocaine and 1 mL Marcaine intrabursally. Patient had minimal discomfort during the procedure. There were no complications. Skin was cleaned and injection site covered with Band-Aid. Post injection instructions given in oral and written form. Follow-up 2 months. Red flag symptoms and reasons to call reviewed. documented in this encounter Miscellaneous Notes * Addendum Note - Flo Corley LPN - 10/10/2019 3:15 PM ESTAddended by: FLO CORLEY on: 10/10/2019 05:48 PM Modules accepted: Orders * Addendum Note - Yassine Sparks Jr., RN - 10/10/2019 3:15 PM ESTAddended by: YASSINE SPARKS JR. on: 10/10/2019 05:51 PM Modules accepted: Orders documented in this encounter Plan of Treatment Scheduled Orders Name Type Priority Associated Diagnoses Orde r Schedule Cell Count Body Fluid Lab STAT Trochanteric bursitis, right hip Pain in right hip Presence of right artificial hip joint Ordered: 10/10/2019 Crystal Exam Body Fluid Lab STAT Trochanteric bursitis, right hip Pain in right hip Presence of right artificial hip joint Ordered: 10/10/2019 Prosthetic Joint Culture, Extended Hold Joint Fluid; Hip, Right Microbiology Routine Trochanteric bursitis, right hip Pain in right hip Presence of right artificial hip joint Ordered: 10/10/2019 documented as of this encounter Procedures Procedure Name Priority Date/Time Associated Diagnosis Comments JOINT CULTURE Routine 10/10/2019 4:15 PM EST ANAEROBIC CULTURE Routine 10/10/2019 4:1 5 PM EST CRYSTAL EXAM BODY FLUID Routine 10/10/2019 4:15 PM EST CELL COUNT BODY FLUID Routine 10/10/2019 4:15 PM EST documented in this encounter Results * Crystal Exam Body Fluid (10/10/2019 4:15 PM EST) Crystal BF Type [facility] Crystal BF None [facility] Hip joint synovial fluid (specimen) Other / Unknown 10/10/2019 4:15 PM EST 10/10/2019 5:00 PM EST Narrative Resulting Agency Comment Spec In Lab / APD Roberto Carlos Aguilar MD BODY FLUIDS AND MARCELLUS LEWIS ORDERABLES [facility] [address] [place] [address] * Cell Count Body Fluid (10/10/2019 4:15 PM EST) Spec Type BF Hip [facility] Color BF Red [facility] Appearance BF Clotted [facility] WBC BF Ct Clotted [facility] Comment: specimen clotted, unable to perform cell count Guideline listed below apply to all body fluids. Differentials on BAL specimens are performed by the Cytology lab section. When Body Fluid WBC count is greater than Zero, a smear is made and scanned. All scan information is correlated with numeric results prior to being released to patients chart. Polymorph % Clotted [facility] Comment: Polymorphonuclear cell percent and absolute values may contain Neutrophils, Eosinophils, and Basophils. Body fluid smear will be scanned manually for concordance. Mononuc % Clotted [facility] Comment: Mononuclear cell percent and absolute values may contain Lymphocytes and Monocytes. Body fluid smear will be scanned manually for concordance. Hip joint synovial fluid (specimen) Other / Unknown 10/10/2019 4:15 PM EST 10/10/2019 5:00 PM EST Narrative Resulting Agency Comment Spec In Lab / APD Roberto Carlos Aguilar MD BODY FLUIDS AND STOO LS ORDERABLES [facility] [address] [place] [address] * Anaerobic Culture (10/10/2019 4:15 PM EST) Anaerobic Culture No anaerobic organisms isolated [facility] Joint fluid specimen (specimen) HIP REGION STRUCTURE / Unknown 10/10/2019 4:15 PM EST 10/11/2019 11:06 AM EST Narrative Resulting Agency Comment Spec In Lab / APD Roberto Carlos Aguilar MD MICROBIOLOGY - GENER AL ORDERABLES [facility] [place] [address] * (ABNORMAL) Joint Culture (10/10/2019 4:15 PM EST) Joint Culture Cutibacterium acnes (Propionibacteriu m acnes) isolated from broth culture. No growth on original plates. (A) [facility] Gram Stain Cytocentrifuge Gram Stain performed Neutrophils seen No microorganisms seen. (A) [facility] Organism Cutibacterium acnes (Propionibacteriu m acnes)(A) [facility] Joint fluid specimen (specimen) HIP REGION STRUCTURE / Unknown 10/10/2019 4:15 PM EST 10/11/2019 11:06 AM EST Narrative Resulting Agency Comment Spec In Lab / APD Organism Antibiotic Method Susceptibility Cutibacterium acnes (propionibacterium acnes) Clindamycin MINIMUM INHIBITORY CONCENTRATION 0.064: Sensitive Cutibacterium acnes (propionibacterium acnes) Meropenem MINIMUM INHIBITORY CONCENTRATION 0.064: Sensitive Cutibacterium acnes (propionibacterium acnes) Moxifloxacin MINIMUM INHIBITORY CONCENTRATION 0.125: Sensitive Cutibacterium acnes (propionibacterium acnes) Penicillin MINIMUM INHIBITORY CONCENTRATION 0.032: Sensitive Cutibacterium acnes (propionibacterium acnes) Vancomycin MINIMUM INHIBITORY CONCENTRATION 0.75 Roberto Carlos Aguilar MD MICROBIOLOGY - [facility] ORDERABLES [facility] [place] [address] documented in this encounter Visit Diagnoses Diagnosis Trochanteric bursitis, right hip- Primary Pain in left hip Pain in joint, pelvic region and thigh Presence of left artificial hip joint Hip joint replacement by other means Pain in right hip Pain in joint, pelvic region and thigh Presence of right artificial hip joint Hip joint replacement by other means documented in this encounter Administered Medications Inactive Administered Medications - up to 3 most recent administrations Medication Order MAR Action Action Date Dose Rate Site betamethasone acetate-betamethasone sodium phosphate (CELESTONE) injection 6 mg 6 mg, Other, ONCE, 1 dose, On Tue10/10/19 at 1800, intrabursal, Routine Given 10/10/2019 5:47 PM EST 6 mg dexamethasone (DECADRON) injection 4 mg 4 mg, Intra-articular, ONCE, 1 dose, On Tue10/10/19 at 1800, This injection was done intra bursal, Routine Given 10/10/2019 5:46 PM EST 4 mg lidocaine (XYLOCAINE) 10 mg/mL (1 %) injection 30 mg 30 mg (3 mL), INTRABURSAL, ONCE, 1 dose, On Tue10/10/19 at 1800, Routine Given 10/10/2019 5:45 PM EST 30 mg documented in this encounter Care Teams Manual Training Teacher Relationship Specialty Start Date End Date Ritu Bolaños APRN [address] [place] [address] PCP - General 05/07/15 02/03/22 documented as of this encounter
--- OUTSIDE RECORDS SUMMARY | 2024-04-12 15:15 | XMS_ITS | Encounter Summary ---
Author Organization Counts Include [facility] Address [facility] [place] [address] Care Team Providers Care Traveling Construction Superintendent Name Role Phone Ritu Bolaños APRN Primary Care Provider [phone]- [phone] Encounter Details Date Type Department Care Team (Latest Contact Info) Description 02/22/2020 10:05 AM EDT - 02/22/2020 11:59 PM EDT Hospital Encounter Mammography/[place] [id number] Ritu Bolaoñs APRN [address] [place] [phone] Encounter for screening mammogram for breast cancer Discharge Disposition: Home Social History Tobacco Use [...] as needed fluticasone propionate (FLONASE) 50 mcg/actuation [place], Suspension 2 sprays by Each Nare route nightly. Magnesium Oxide 250 mg magnesium Tablet Take 2 tablets by mouth daily. multivitamin (THERAGRAN) Tablet Take 1 tablet by mouth daily. methylPREDNISolone (MEDROL DOSPACK) 4 mg Tablets, Dose Pack Use as directed on product package. 21 tablet 02/19/2020 05/06/2020 acetaminophen (Tylenol) 500 mg Tablet Take 1-2 tablets by mouth every 8 hours as needed (post-op pain). DO NOT take more than 3000 mg Tylenol from all sources 0 01/23/2020 10/02/2020 diclofenac (VOLTAREN) 1 % Gel Apply 1 g topically 4 times daily as needed. 1 Tube 1 10/10/2019 10/02/2020 budesonide (PULMICORT FLEXHALER) 180 mcg/actuation Aerosol Powdr Breath Activated Inhale 1 puff into the lungs 2 times daily. 10/02/2020 salmeterol (SEREVENT DISKUS) 50 mcg/dose Disk with Device Inhale 1 puff into the lungs 2 times daily. 10/02/2020 alendronate (FOSAMAX) 70 mg TabletIndications:TAKE S EITHER TUESDAY OR TUESDAY Take 70 mg by mouth every 7 days. Indications: TAKES EITHER TUESDAY OR Tuesday10/02/2018 05/06/2020 ubidecarenone/omega-3/ vit E (CO U-70-[id number] E-FISH OIL ORAL) Take 1 tablet by mouth daily. 05/12/2021 documented as of this encounter Plan of Treatment Not on file documented as of this encounter Procedures Procedure Name Priority Date/Time Associated Diagnosis Comments MAMMO SCREENING CAD AND ANETTE BILATERAL Routine 02/22/2020 11:19 AM EDT Encounter for screening mammogram for breast cancer documented in this encounter Results * Mammo Screening Cad and Anette Bilateral (02/22/2020 11:19 AM EDT) Anatomical Region [...] BIRADS CATEGORY 1: NEGATIVE Ritu Bolaños APRN IMG MAMMO ORDERABL ES documented in this encounter Visit Diagnoses Diagnosis Encounter for screening mammogram for breast cancer documented in this encounter Care Teams Traveling Construction Superintendent Relationship Specialty Start Date End Date Ritu Boalños APRN [address] [place] [address] PCP - General 05/07/15 02/03/22 documented as of this encounter
--- OUTSIDE RECORDS SUMMARY | 2024-04-12 15:15 | XMS_ITS | Encounter Summary ---
Author Organization [facility] [place] [address] Care Team Providers Care Electroplater Apprentice Name Role Phone Ritu Bolaños APRN Primary Care Provider [phone]- [phone] Reason for Visit * Reason Comments Right Hip Pain consent signing Encounter Details Date Type Department Care Team (Late st Contact Info) Description 11/29/2019 11:45 AM EDT Office Visit Orthopaedics at [facility] [address] [place] [address] Claudio Cox MD [address] [place] [address] Pain in right hip; Status post total hip replacement, right; Pre-op exam; Trochanteric bursitis of right hip Social History Tobacco Use [...] this encounter Patient Instructions * Patient Instructions* Karen Tenorio - 11/29/2019 11:45 AM EDT SURGICAL CONSENT - The patient is very frustrated with their worsening pain, weakness, and decreased range of motion. The pain is affecting their quality of life and ability to perfrom ADL's. The patient would like to proceed with surgical intervention. - Non-operative options were reviewed: activity modification, physical therapy, medication, injection, assistive devices. The patient has failed with these non- operative modalities. - Planned surgical procedure right hip arthroscopic greater trochanteric bursectomy with IT bad release - Code Status: Full Code. -Sleep Apnea: If you have a C PAP please bring it with you to surgery. - The options, risks, and benefits of the procedure were reviewed and any patient questions were answered. - The consent was reviewed with the patient in its entirety and signed during the office visit today. - The patient will be prepared for surgery at [facility]. H&P - The patient has been seen by their PCP and has been medically cleared to proceed with the plannedprocedure. Post op instructions: - Patient will follow up with occupational / physical therapy postoperatively. The patient will be provided with bandage change supplies at discharge and given instructions to change the bandage 3-4 days post op. - Patient will be seen in office on 12/25/19 for post operative follow up. - If you have any questions, please call us at and ask to speak with the Registered Nurse. documented in this encounter Progress Notes * Claudio Cox MD - 11/29/2019 11:45 AM EDT Chief Complaint Patient presents with ??? Right Hip Pain consent signing Reason for visit: Discussion of surgery Planned Procedure: right hip arthroscopic greater trochanter bursectomy with IT band release Date of Surgery: 12/07/19 Jigna Espinoza was seen today for further discussion of surgery. She had a few additional questions, which we reviewed. We also reviewed the procedure, associated risks, and post operative expectations and restrictions. She appears to understand the plan and the associated risks and is ready to go forward with the planned procedure right hip arthroscopic greater trochanteric bursectomy and possible ITB release. Our consultation lasted approximately 15 minutes and the majority of this time was spent in counseling about the treatment options and the relative risks and benefits of surgery. REVIEW OF SYSTEMS Constitutional: Denies fever, chills, fatigue Cardiovascular: Denies chest pain Respiratory: Denies shortness of breath Gastrointestinal: Denies nausea, vomiting, diarrhea, constipation or abdominal pain Neurovascular: Denies numbness or tingling Musculoskeletal: Admits pain in the right hip Psychiatric: Mood and affect appropriate Opioid Risk Tool Female Male 1. Family history of Substance Abuse Alcohol [] 1 [] 3 Illegal Drugs [] 2 [] 3 Prescription Drugs [] 4 [] 4 2. Personal History of Substance Abuse Alcohol [] 3 [] 3 Illegal Drugs [] 4 [] 4 Prescription Drugs [] 5 [] 5 3. Age (antonio box if 16-45) [] 1 [] 1 4. History of Preadolescent Sexual Abuse [] 3 [] 0 5. Psychological Disease Attention Deficit Disorder, Obsessive Compulsive D/o, Bipolar, Schizophrenia [] 2 [] 2 Depression [x] 1 [] 1 TOTAL: 1 Comments about ORT in relation to this patient: Opioid Risk Category: low risk 0-3 SURGICAL CONSENT - The patient is very frustrated with their worsening pain, weakness, and decreased range of motion. The pain is affecting their quality of life and ability to perfrom ADL's. The patient would like to proceed with surgical intervention. - Non-operative options were reviewed: activity modification, physical therapy, medication, injection, assistive devices. The patient has failed with these non- operative modalities. - Planned surgical procedure right hip arthroscopic greater trochanteric bursectomy with IT bad release - Code Status: Full Code. -Sleep Apnea: If you have a C PAP please bring it with you to surgery. - The options, risks, and benefits of the procedure were reviewed and any patient questions were answered. - The consent was reviewed with the patient in its entirety and signed during the office visit today. - The patient will be prepared for surgery at [facility]. H&P - The patient has been seen by their PCP and has been medically cleared to proceed with the plannedprocedure. Post op instructions: - Patient will follow up with occupational / physical therapy postoperatively. The patient will be provided with bandage change supplies at discharge and given instructions to change the bandage 3-4 days post op. - Patient will be seen in office on 12/25/19 for post operative follow up. - If you have any questions, please call us at and ask to speak with the Registered Nurse. documented in this encounter Plan of Treatment Not on file documented as of this encounter Visit Diagnoses Diagnosis Pain in right hip Pain in joint, pelvic region and thigh Status post total hip replacement, right Pre-op exam Preoperative examination, unspecified Trochanteric bursitis of right hip Enthesopathy of hip region documented in this encounter Care Teams Electroplater Apprentice Relationship Specialty Start Date End Date Ritu Bolaños APRN [address] [place] [address] PCP - General 05/07/15 02/03/22 documented as of this encounter
--- OUTSIDE RECORDS SUMMARY | 2024-04-12 15:15 | XMS_ITS | Encounter Summary ---
Author Organization Replaced By [facility] [place] [address] Care Team Providers Care Pipe Installer Name Role Phone Ritu Bolaños APRN Primary Care Provider +1- [phone] Reason for Visit * Reason Comments Follow Up Surgery S/P Right hip greate r trochanteric bursectomy wit IT band release DOS 01/23/2020 Encounter Details Date Type Department Care Team (Late st Contact Info) Description 03/24/2020 10:00 AM EDT Office Visit Orthopaedics at [address] [address] Regla Cox PA [address] [place] [address] S/P hip arthroscopy; right greater troch bursectomy; [...] as of this encounter Progress Notes * Regla Cox PA - 03/24/2020 10:00 AM EDT PATIENT NAME: Jigna Espinoza AGE: 75 y.o. MR#: [id number] DATE OF VISIT: 03/24/2020 DATE OF SURGICAL PROCEDURE: 01/23/2020 SURGICAL PROCEDURE PERFORMED: Right hip arthroscopic debridement of adherent fibrotic tissue at level of greater trochanteric bursa, arthroscopic release of incarcerated iliotibial band from adherentfibrotic tissue, percutaneous release of adherent fibrotic tissue subcutaneous level SURGEON: Claudio Cox MD CHIEF COMPLAINT: Post-op visit s/p hip arthroscopy HISTORY OF PRESENT ILLNESS Jigna Espinoza a 75 y.o. female presents to the office in follow-up after undergoing a right lateral hip arthroscopy. She continues to have quite a bit of pain and swelling along the lateral hip and thigh into the knee. She is having difficulty sleeping and usually uses a pillow between her knees. The greatest pain is after she sits for a period of time. She will have to stand and let the pain subside before she starts walking again. She is recovering at home, icing frequently, and increasing activity level to to lerance. The patient is full weight bearing with use of a straight cane for assistance primarily when leaving the house. She admits a limp that worsens as she starts to get tired with walking. She has been placing a shoe lift in her right shoe. Pain Medications: Celebrex 200 mg once daily. Tylenol 1300 mg twice daily. She was treated with a Medrol dose shari without benefit. Post-op DVT Prophylaxis: Aspirin 81 mg once daily. Physical Therapy: Light home exercises. Outpatient PT at [facility] without benefit. I called and spoke with Maki, Physical Therapist. PT has been working on strengthening, massage, and manual therapies but without great benefit. She feels that Jigna is doing too much. X-rays were obtained during today's office visit. REVIEW OF SYMPTOMS: Constitutional: Denies fever, chills, fatigue Cardiovascular: Denies chest pain Respiratory: Denies shortness of breath Gastrointestinal: Denies nausea, vomiting, diarrhea, constipation or abdominal pain Neurovascular: Denies numbness or tingling Musculoskeletal: Admits mild postop lateral hip and thigh pain, mild swelling lateral hip and thigh, limited range of motion due to stiffness and pain Psychiatric: Mood and affect appropriate PHYSICAL EXAM: General: alert, oriented, and in no acute distress Right Hip Exam: Inspection: no ecchymosis, no erythema, mild swelling, no deformity, gluteus medius/minimus atrophyand decreased definition compared to left side Palpation: tenderness to palpation of gluteals, TFL, piriformis, IT Band, and greatest over greatertrochanteric bursal region ROM: pain elicited with end range of motion, but overall maintaining good passive and active motion, a lateral hip clicking is noted Strength: 4/5 hip flexion, 4/5 hip extension, 4/5 abduction, 4/5 adduction, 3+/5 internal rotation,4-/5 external rotation, and 4+/5 knee flexion/extension Orthopedic testing: Trendelenburg positive, KADE positive , Ruben positive , SI Joint positive , Straight Leg Raise negative , Hip Scour Test negative , Piriformis Test positive and Leg Length abnormal with right leg short on supine to sit testing and rotated sacroiliac joint alignment Neurovascular: normal sensation to light touch along lower extremity nerve distributions. DP and PTpulses are 2+ and equal bilaterally with good foot perfusion. Imaging: Pelvis and Right Hip xray's performed on 03/24/2020: Right total hip prothesis in stable alignment with no signs of periprosthetic fracture or lucency, left hip with mild osteoarthritis, lumbar spine DJD present with end of hardware visible XR Knee Standing Alignment performed on 03/24/2020: FINDINGS: There is very mild lateral deviation of the weightbearing axis of the right leg and normal alignment of the left leg. A total right hip prosthesis is present. ?? Leg length Right femur: 47.8 cm Right tibia: 37 cm Right leg (excluding joint space): 84.8 cm ?? Left femur: 46.5 cm Left tibia: 37.3 cm Left leg (excluding joint space): 83.8 cm ?? IMPRESSION The right femur (including a prosthesis) is slightly longer than the left. ?? Thank you for letting us participate in the care of this patient. For questions regarding this report, please contact the number below. Electronically signed by: Brady Alvarez [facility] ([phone]), at 03/24/2020 11:56 AM ASSESSMENT/PLAN: Jigna Espinoza is a 75 y.o. female presents to the office in follow-up s/p Right hip arthroscopicdebridement of adherent fibrotic tissue at level of greater trochanteric bursa, arthroscopic release of incarcerated iliotibial band from adherent fibrotic tissue, percutaneous release of adherent fibrotic tissue subcutaneous level performed on 01/23/[address] Cox. The patient is frustrated by the ongoing pain, swelling, weakness, and antalgic gait. Use of a cane until strength/balance improve. Avoid limping, encouraged use of a cane, especially as she gets tired. Strongly encouraged wearing supportive sneakers for all daily activities an avoid flip flops and walking barefoot at this time. Discontinue use of shoe lift on right, as this pain be increasing the hip elevation and SI joint dysfunction. Physical therapy to focus on SI joint dysfunction/manual therapies, soft tissue and trigger point massage, guidance on strengthening exercises and normalized gait pattern. Perform self trigger point releases with a tennis ball. Perform self maneuvers for the SI joint dysfunction, reviewed several techniques that were beneficial in the office today. Perform home exercises daily, focus on gluteal strengthening and core stabilization exercises. Consider use of SI joint belt or hip spica wrap for improved stability and support. Recommend performing exercises in front of a mirror to educate on avoidance of the hip drop. Recommend icing, rest, and elevation. Use of Tylenol 500 mg every 4 hours or 1000 mg orally every 8 hours or 1300 mg BID as needed for postoperative pain. Do not take more than 3000 mg of Tylenol from all sources in a 24-hour. Use of Celebrex 200 mg once daily with food for postoperative pain and inflammation. Use of OTC Voltaren gel topically on the lateral hip. Consider returning to see Roberto Carlos Aguilar MD, for additional non-surgical treatment options for chronic lateral hip pain after 3 months post-op. Plan to follow-up 4-6 weeks. Please call the office if you have any questions or concerns prior to your next follow-up visit. documented in this encounter Plan of Treatment Not on file documented as of this encounter Results * XR Pelvis and Hip 2 Views Right (03/24/2020 11:07 AM EDT) Anatomical Region Laterality Modality Pelvis, Hip Right Digital Radiogra phy Impressions 03/24/2020 11:22 AM EDT The right hip prosthesis is without complication or change. Thank you for letting us participate in the care of this patient. For questions regarding this report, please contact the number below. ? Electronically signed by: Brady Alvarez [facility] ([phone]), at 03/24/2020 11:22 AM Narrative 03/24/2020 11:22 AM EDT EXAMINATION: XR PELVIS AND HIP 2 VIEWS RIGHT CLINICAL HISTORY: assess hip pain TECHNIQUE: AP pelvis, AP right hip, lateral right hip COMPARISON: July 06, 2019 FINDINGS: A right-sided total hip prosthesis is present. The prostheses are well-positioned without periprosthetic lucency or fracture. There is no change in appearance of the prostheses since the prior study. Mild osteoarthritis of the left hip is unchanged. Degenerative disease is evident in the lower lumbar spine. The inferior aspect of a lumbar spine fixation device is seen. Procedure Note Brady Alvarez MD - 03/24/2020 EXAMINATION: XR PELVIS AND HIP 2 VIEWS RIGHT CLINICAL HISTORY: assess hip pain TECHNIQUE: AP pelvis, AP right hip, lateral right hip COMPARISON: July 06, 2019 FINDINGS: A right-sided total hip prosthesis is present. The prostheses are well-positioned without periprosthetic lucency or fracture. There is nochange in appearance of the prostheses since the prior study. Mild osteoarthritis of the left hip is unchanged. Degenerative disease is evident in the lower lumbar spine. The inferioraspect of a lumbar spine fixation device is seen. IMPRESSION The right hip prosthesis is without complication or change. Thank you for letting us participate in the care of this patient. Forquestions regarding this report, please contact the number below. Electronically signed by: MICHELLE Rehman [facility]([phone]), at 03/24/2020 11:22 AM Claudio Cox MD IMG DX ORDERABLES * XR Knee Standing Alignment (Generic) (03/24/2020 11:07 AM EDT) Anatomical Region Laterality Modality N/A Digital Radiogra phy Impressions 03/24/2020 11:56 AM EDT The right femur (including a prosthesis) is slightly longer than the left. Thank you for letting us participate in the care of this patient. For questions regarding this report, please contact the number below. ? Electronically signed by: Brady Alvarez [facility] ([phone]), at 03/24/2020 11:56 AM Narrative 03/24/2020 11:56 AM EDT EXAMINATION: XR [...] Cox documented in this encounter Care Teams Pipe Installer Relationship Specialty Start Date End Date Ritu Bolaños APRN [address] [place] [address] PCP - General 05/07/15 02/03/22 documented as of this encounter
--- OUTSIDE RECORDS SUMMARY | 2024-04-12 15:15 | XMS_ITS | Encounter Summary ---
Author Organization Pending Sale To [place] [address] Care Team Providers Care Audit Consultant Name Role Phone Ritu Bolaños APRN Primary Care Provider +1- [phone] Encounter Details Date Type Department Care Team ([facility] st Contact Info) Description 01/16/2020 11:15 AM EDT Telephone Pre-Admission Testing at [facility] [place] [address] Social History Tobacco Use Types Packs/Day Years [...] on filedocumented in this encounter Care Teams Audit Consultant Relationship Specialty Start Date End Date Ritu Bolaños APRN [address] [place] [address] PCP - General 05/07/15 02/03/22 documented as of this encounter
--- OUTSIDE RECORDS SUMMARY | 2024-04-12 15:15 | XMS_ITS | Encounter Summary ---
Author Organization [facility] [place] [address] Care Team Providers Care Ssas Developer Name Role Phone Ritu Bolaños APRN Primary Care Provider +1- [phone] Reason for Visit * Reason Onset Date Comments Medication Refill 06/22/2019 Post Procedure Call 06/22/2019 DOS: 06/19/19 RT THR Encounter Details Date Type Department Care Team (Late st Contact Info) Description 06/22/2019 Telephone Orthopaedics at [facility] [address] [place] [address] Eric Soto MD [address] [place] [address] Medication Refill; Post Procedure Call (DOS: 06/19/19 RT THR) Social History Tobacco Use Types Packs/Day Years [...] encounter Miscellaneous Notes * Telephone Encounter - Jennifer Manjarrez RN - 06/22/2019 4:09 PM EDT Jigna Espinoza is contacted by the office today to follow up with then and check in to see how they're doing since their recent surgery. Jigna Espinoza is status post right total hip replacement which was performed on 06/19/19 by Eric Soto MD . The patient states I am doing better than I was now that I am at home; however, I do feel rather nauseous from the stronger opioid medication. [facility] [place] is at [place] resting comfortably after being in the ICU. The patient denies fever or chills. The patient reports that dressing is clean dry and intact without discharge or redness. Patient reports pain at a 3-4 on a scale of 0/10 described as generalized discomfort and tenderness. Patient reports that they are icing the surgical site, resting, and elevating appropriate. Patient reports taking Celebrex 200 mg daily, acetaminophen 1000 mg every eight hours in conjunction with oxycodone 5 mg tablets every 4 hours for pain control as needed. Patient has 40 pills remaining out of 40 pills dispensed. Patient stated that she has had a hard time with the oxycodone side effect of nausea and vomiting, but stated that it has provided effective pain relieving measures. Patient advised that we would prescribe zofran 4 mg tablet for her to use with the oxycodone to prevent the vomiting. Patient is partial weight bearing and is using a walker for ambulation. Patient is currently taking aspirin 81 mg for DVT prophylaxis. Patient has had a bowel movement since surgery. Patient denies nausea, but endorses flatulence and bloating. Patient was instructed to continue miralax and colace daily for the duration of the opioids. Patient has been contacted by [facility]. The patient states that she does not have questions regarding her post operative instructions. The patient is advised to call the clinic with any concerns or questions that may arise. The patient has a follow up appointment scheduled for 07/16/19. documented in this encounter Plan of Treatment Not on file documented as of this encounter Visit Diagnoses Diagnosis Status post total replacement of right hip documented in this encounter Care Teams Ssas Developer Relationship Specialty Start Date End Date Ritu Bolaños APRN [address] [place] [address] PCP - General 05/07/15 02/03/22 documented as of this encounter
--- OUTSIDE RECORDS SUMMARY | 2024-04-12 15:15 | XMS_ITS | Encounter Summary ---
Author Organization [facility] [place] [address] Care Team Providers Care Master Control Operator Name Role Phone Ritu Bolaños APRN Primary Care Provider +1- [phone] Encounter Details Date Type Department Care Team ([facility] st Contact Info) Description 11/29/2019 Abstract [facility] [address] [place] [address] Provider, His MD Raquel Social History Tobacco Use Types Packs/Day Years [...] on filedocumented in this encounter Care Teams Master Control Operator Relationship Specialty Start Date End Date Ritu Bolaños APRN [address] [place] [address] PCP - General 05/07/15 02/03/22 documented as of this encounter
--- OUTSIDE RECORDS SUMMARY | 2024-04-12 15:15 | XMS_ITS | Encounter Summary ---
[place] [address] Care Team Providers Care Collar Baster Jumpbasting Name Role Phone Ritu Bolaños APRN Primary Care Provider +1- [phone] Encounter Details Date Type Department Care Team (Latest Contact Info) Description 07/06/2019 9:45 AM EDT Ancillary Procedure Radiology XRay at [facility] at [facility] [address] [place] [address] Eric Soto MD [address] [place] [address] Presence of right artificial hip joint Social [...] Name Priority Date/Time Associated Diagnosis Comments XR PELVIS AND LAT HIP RIGHT Routine 07/06/2019 9:13 AM EDT Presence of right artificial hip joint documented in this encounter Results * XR Pelvis & Lat Hip Right (Generic) (07/06/2019 9:13 AM EDT) Anatomical Region Laterality Modality Pelvis, Hip Right Digital Radiogra phy Impressions 07/06/2019 9:21 AM EDT Total hip arthroplasty on the right without complication. Thank you for letting us participate in the care of this patient. For questions regarding this report, please contact the number below. ? Electronically signed by: Atif Murrell [facility] ([phone]), at 07/06/2019 9:21 AM Narrative 07/06/2019 9:21 AM EDT EXAMINATION: XR PELVIS AND LAT HIP RIGHT (GENERIC) CLINICAL HISTORY: s/p rt thr ap pelvis and frogleg lateral hip right TECHNIQUE: Frontal projection of the pelvis and a frog-leg lateral view of the right hip. COMPARISON: Previous examination 06/20/2019 FINDINGS: There is a right total hip arthroplasty in good positioning. The acetabular and the femoral components are in good alignment. There is no evidence of a periprosthetic fracture or prosthetic loosening. Minor osteoarthritic disease is identified in the left hip with joint space narrowing and sclerosis in the acetabulum without change. The bony pelvis is intact. Visualized portions of the SI joints and sacrum demonstrate no abnormalities. Procedure Note Atif Murrell MD - 07/06/2019 EXAMINATION: XR PELVIS AND LAT HIP RIGHT (GENERIC) CLINICAL HISTORY: s/p rt thr ap pelvis and frogleg lateral hip right TECHNIQUE: Frontal projection of the pelvis and a frog-leg lateral view of the righthip. COMPARISON: Previous examination 06/20/2019 FINDINGS: There is a right total hip arthroplasty in good positioning. Theacetabular and the femoral components are in good alignment. There is no evidence of a periprosthetic fracture or prosthetic loosening. Minor osteoarthriticdisease is identified in the left hip with joint space narrowing and sclerosis inthe acetabulum without change. The bony pelvis is intact. Visualized portionsof the SI joints and sacrum demonstrate no abnormalities. IMPRESSION Total hip arthroplasty on the right without complication. Thank you for letting us participate in the care of this patient. Forquestions regarding this report, please contact the number below. Electronically signed by: Atif Murrell [facility]([phone]), at 07/06/2019 9:21 AM Eric Soto MD IMG DX ORDERABLES documented in this encounter Visit Diagnoses Diagnosis Presence of right artificial hip joint Hip joint replacement by other means documented in this encounter Care Teams Collar Baster Jumpbasting Relationship Specialty Start Date End Date Ritu Bolaños APRN [address] [place] [address] PCP - General 05/07/15 02/03/22 documented as of this encounter
--- OUTSIDE RECORDS SUMMARY | 2024-04-12 15:15 | XMS_ITS | Encounter Summary ---
[place] [address] Care Team Providers Care Rubber Calender Helper Name Role Phone Ritu Bolaños APRN Primary Care Provider +1- [phone] Reason for Visit * Reason Onset Date Comments Results 07/09/2019 Encounter Details Date Type Department Care Team (Late st Contact Info) Description 07/09/2019 Telephone Orthopaedics at [facility] [place] [address] Talita Patterson CMA Results Social History Tobacco Use Types Packs/Day Years [...] encounter Miscellaneous Notes * Telephone Encounter - Talita Patterson CMA - 07/27/2019 1:05 PM EST Images from the original note were not included. please return patient's call regarding email you sent her Received: 3 days ago Message Contents Nuha Arteaga Jennifer L, CMA ?? HI Patient called regarding email you sent her yesterday would like a call back please Thanks Alpa Left message for patient. * Addendum Note - Talita Patterson CMA - 07/23/2019 1:33 PM ESTAddended by: TALITA PATTERSON on: 07/23/2019 01:33 PM Modules accepted: Orders * Telephone Encounter - Talita Patterson CMA - 07/23/2019 1:29 PM EST Per BVD, patient should re-check iron level in 8 weeks (from 06/22/19). Order in. * Telephone Encounter - Talita Patterson CMA - 07/09/2019 10:54 AM EDT Spoke with patient. Patient has an OTC iron supplement, and was taking it, but had to stop it whiletaking the oxycodone due to the chronic constipation. Patient will increase frequency of iron as she discontinues oxycodone; she will continue bowel regimen. * Telephone Encounter - Talita Patterson CMA - 07/09/2019 10:54 AM EDT ----- Message from Talita Patterson CMA sent at 07/09/2019 10:41 AM EDT ----- ----- Message ----- From: Regla Cox PA Sent: 07/08/2019 2:48 PM EDT To: Claudio Orozco Jr., RN Could any ortho nurse please call Jigna to let her know that her labs have continued to improve.She could consider adding an iron supplement or we could send a prescription to the pharmacy (ferrous sulfate 325 mg once daily). Let her know that increased iron intake can lead to constipation, so she should take a bowel med. Gwendolyn Addison documented in this encounter Plan of Treatment Not on file documented as of this encounter Visit Diagnoses Diagnosis Chronic constipation Unspecified constipation Osteoporosis without current pathological fracture, unspecified osteoporosis type Status post total hip replacement, right Iron deficiency Iron deficiency anemia, unspecified documented in this encounter Care Teams Rubber Calender Helper Relationship Specialty Start Date End Date Ritu Bolaños APRN [address] [place] [address] PCP - General 05/07/15 02/03/22 documented as of this encounter
--- OUTSIDE RECORDS SUMMARY | 2024-04-12 15:15 | XMS_ITS | Encounter Summary ---
Author Organization [facility] [place] [address] Care Team Providers Care Conveyor Belt Installer Name Role Phone Ritu Bolaños RAEANN Primary Care Provider [phone]- [phone] Reason for Visit * Auth/Cert Specialty Diagnoses / Procedures Referred By Lennox t Referred To Contact Diagnoses s/p total hip arthroplasty with IT band entrapment Procedures PRO UNLISTED PROCEDURE ARTHROSCOPY ARTHROSCOPIC GREATER TROCHANTERIC BURSECTOMY W ILIOTIBIAL BAND RELEASE MODIFIER HAMMOND & NEPHEW ORTHO MODIFIER MITEK Referral ID Status Reason Start Date Expiration Date Visits Re quested Visits Authorized [id number] 1 1 Encounter Details Date Type Department Care Team (Late st Contact Info) Description 01/23/2020 11:07 AM EDT [place]est[place] [address] Vitor Lugo, SENIOR CLINICAL STUDY MANAGER [place] [address] Claudio Monteiro, [place]ACK[place] [address] Anesthesia Record Procedure Summary Procedure Name Responsible Anesthesiologist Anesthesia Start Time Anesthesia Stop Time ARTHROSCOPIC GREATER TROCHANTERIC BURSECTOMY W ILIOTIBIAL BAND RELEASE (WRVU 12.47) (Right: Hip) Vitor Lugo, SENIOR CLINICAL STUDY MANAGER 01/23/20 1107 01/23/20 1336 Events Date Time Event Comment 01/23/2020 1045 1107 AN Verify 1107 Start 1107 An Start Data 1115 An Induction 1118 An Intubation 1122 Anesthesia Ready 1155 Procedure Start 1311 Extubation/LMA Out 1326 an stop data 1326 Recovery or ICU Handoff Karley ent care was transferred to the destination unit staff after review of the patient's medical history, current anesthetic/surgical status and plan, according to the Provider Handoff Checklist. 1336 Stop Meds Name Total Midazolam 2 mg fentaNYL 100 mcg IV Lidocaine 50 mg Propofol 150 mg Rocuronium 50 mg Glycopyrrolate 0.2 mg Tranexamic Acid 1,000 mg PHENYLephrine 160 mcg ceFAZolin (Ancef) 2g in dextrose 5% 100 mL 2 g lactated ringers infusion 1,000 mL * Agents Name O2 Air N2O Sevoflurane (et) * Blood No blood administrations on file. Lines, Drains, and Airways Type Details Placement Removal Incision 06/19/19; 0812; hip; 05/12/21; 1607 06/19/19 0812 by Sophia De Anda RN 05/12/21 1607 by Sherie Simpson, CHATO (RETIRED) Peripheral IV Line - Single Lumen 01/23/20; 1004; cephalic vein (lateral side of arm), right; [id number] catheter system; 20 gauge; G Catherine; complained of discomfort, appears comfortable, tolerated well, distraction; 0; 01/23/20; 1458 01/23/20 1004 by Jenniffer Alexander RN 01/23/20 1458 by Lucia Gomez RN ETT Mask Ventilation: No t Attempted (0); ETT Type: Cuffed, Oral; ETT Size: 7 mm; Mac Blade: 3; Notes: Asleep, Pre-O2, Stylette; Attempts: 1; Laryngoscopy Grade: 1; Secured at Teeth: 22 cm; Inserted by: JACKY Schmitz; Removal Date: 01/23/20; Removal Time: 1311 01/23/20 1118 by Humphrey Schmitz CRNA 01/23/20 1311 by Vitor Lugo CRNA Incision 01/23/20; 1155; hip; arthroscopic punctures (specify); 05/12/21; 1607 01/23/20 1155 by Celia Dunaway RN 05/12/21 1607 by Sherie Simpson RN documented in this encounter Social History Tobacco [...] OR Notes * Anesthesia Postprocedure Evaluation - Vitor Lugo CRNA - 01/23/2020 1:36 PM EDT Department of Anesthesiology Post-procedure Note Patient: Jigna Espinoza Procedure Summary Date: 01/23/20 Room / Location: [facility] OR MAIN OR Anesthesia Start: 1107 Anesthesia Stop: 1336 Procedures: ARTHROSCOPIC GREATER TROCHANTERIC BURSECTOMY W ILIOTIBIAL BAND RELEASE (Right Hip) MODIFIER HAMMOND & NEPHEW ORTHO (Right Hip) MODIFIER MITEK (Right Hip) Diagnosis: Status post total hip replacement, right Iliotibial band syndrome, right Pain in right hip (s/p total hip arthroplasty with IT band entrapment) Surgeon: Claudio Cox MD Responsible Provider: Vitor Lugo CRNA Anesthesia Type: spinal ASA Status: 2 All Anesthesia Providers: JACKY Independent: Vitor Lugo CRNA; Humphrey Schmitz CRNA Vitals Value Taken Time BP Temp Pulse Resp SpO2 Pain Level Patient Location: PACU Level of Consciousness: Awake and Alert Pain Management: Pain Being Addressed PONV: None Cardiovascular Status: At Baseline Respiratory Status: At Baseline Postoperative Fluid Status: Intravascular EUvolemia Possible Anesthetic Complications: NONE apparent at time of evaluation Final Primary Anesthesia Type: General (The anesthetic type performed was the same as planned.) Comments: VSS report and care to RN * Anesthesia Preprocedure Evaluation - Humphrey Schmitz CRNA - 01/23/2020 10:43 AM EDT Pre-Anesthesia Evaluation for: Jigna Espinoza a 74 y.o. female. Procedure(s): @TOTAL HIP ARTHROPLASTY, ANTERIOR APPROACH (WRVU 20.72) MODIFIER HAMMOND & NEPHEW - R3 ACETABULAR CUP MODIFIER HAMMOND & NEPHEW - POLAR STEM CEMENTLESS Patient Active Problem List Diagnosis ??? Hypokalemia ??? Hypotension ??? Claustrophobia [...] PALPITATIONS ??? L3 vertebral fracture 02/28/2019 ??? 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 CT GUIDED JOINT INJECTION 09/04/2018 CT Guided Joint Injection 09/04/2018 [facility] RAD CAT SCAN ??? HIP SURGERY 05/25/2017 ??? HYSTERECTOMY ??? JOINT REPLACEMENT Right 06/19/2019 THR ??? OVARY REMOVAL ??? PRO TOTAL HIP ARTHROPLASTY Right 06/19/2019 @TOTAL HIP ARTHROPLASTY, ANTERIOR APPROACH (WRVU 20.72) performed by Eric Soto MD at [facility] MAIN OR ??? SPINAL FUSION 01/2018 ??? UPPER GASTROINTESTINAL ENDOSCOPY AND 04/04/2019 ??? XR FLUORO INJECTION DRAINAGE JOINT LG RIGHT Right 03/16/2019 XR Fluoro Guided Joint Injection Large Right 03/16/2019 [facility] RAD XRAY Social History Tobacco Use ??? Smoking status: Never Smoker ??? Smokeless tobacco: Never Used Substance Use Topics ??? Alcohol use: Yes Comment: SELDOM Social History Substance and Sexual Activity Drug Use Never Allergies Allergen Reactions ??? Ketorolac Other (See Comments) Other reaction(s): black stools, nausea and vomting ??? Codeine Nausea Only ??? Hydrocodone Nausea Only ??? Hydromorphone Nausea Only ??? Tramadol Nausea Only Medications: MAR and/or home medications have been reviewed. Physical Exam: There were no vitals filed for this visit. There is no height or weight on file to calculate BMI. Airway Assessment: Mallampati: II TM distance: >3 FB Neck ROM: full Cardiovascular Assessment: cardiovascular exam normal Pulmonary Assessment: pulmonary exam normal Dental Assessment: (+) upper dentures and lower dentures Misc Assessment: Patient is wearing No contact(s). IV access: Peripheral line Other exam findings: Partial upper and lower dentures. Anesthesia Plan: ASA 2 spinal, with a(n) intravenous induction Informed Consent: Anesthetic plan and risks discussed with patient. PAT Clinic Note documented in this encounter Plan of Treatment Not on file documented as of this encounter Visit Diagnoses Not on filedocumented in this encounter Administered Medications Inactive Administered Medications - up to 3 most recent administrations Medication Order MAR Action Action Date Dose Rate Site ceFAZolin (Ancef) 2g in dextrose 5% 100 mL 2 g, Intravenous, EVERY 4 HOURS, First dose on Tue01/23/20 at 1015, Until Discontinued, Administer over 30 Minutes, Administer over 30 minutes, Redose after 4 hours., Intra-Operative (Intra-Procedure), Indication for (Active or Suspected): Prophylaxis Given 01/23/2020 11:27 AM EDT 2 g fentaNYL 50 mcg/mL multi-dose injection PRN, Starting on Tue01/23/20 at 1119, Until Tue01/23/20 at 1336, Anesthesia Intra-op, Routine Given 01/23/2020 12:14 PM EDT 50 mcg Given 01/23/2020 11:19 AM EDT 50 mcg glycopyrrolate (ROBINUL) injection PRN, Starting on Tue01/23/20 at 1107, Until Tue01/23/20 at 1336, Anesthesia Intra-op, Routine Given 01/23/2020 11:07 AM EDT 0.2 mg lactated ringers infusion 1,000 mL, at 50 mL/hr, Intravenous, CONTINUOUS, Starting on Tue01/23/20 at 1115, Until Tue01/23/20 at 1523, Day of Surgery (Day of Procedure) New Bag 01/23/2020 11:07 AM EDT lidocaine (PF) (XYLOCAINE) 100 mg/5 mL (2 %) injection PRN, Starting on Tue01/23/20 at 1115, Until Tue01/23/20 at 1336, Anesthesia Intra-op, Routine Given 01/23/2020 11:15 AM EDT 50 mg midazolam (PF) (VERSED) multi-dose injection PRN, Starting on Tue01/23/20 at 1107, Until Tue01/23/20 at 1336, Anesthesia Intra-op, Routine Given 01/23/2020 11:07 AM EDT 2 mg PHENYLephrine (RYLIE-SYNEPHRINE) injection PRN, Starting on Tue01/23/20 at 1151, Until Tue01/23/20 at 1336, Anesthesia Intra-op, Routine Given 01/23/2020 12:04 PM EDT 80 mcg Given 01/23/2020 11:57 AM EDT 40 mcg Given 01/23/2020 11:51 AM EDT 40 mcg propofol (DIPRIVAN) 10 mg/mL bolus injection (Anesthesia) PRN, Starting on Tue01/23/20 at 1115, Until Tue01/23/20 at 1336, Anesthesia Intra-op Given 01/23/2020 11:15 AM EDT 150 mg rocuronium (Zemuron) 10 mg/mL injection PRN, Starting on Tue01/23/20 at 1115, Until Tue01/23/20 at 1336, Anesthesia Intra-op, Routine Given 01/23/2020 11:15 AM EDT 50 mg tranexamic acid (CYKLOKAPRON) 100 mg/mL bolus injection (Anesthesia) PRN, Starting on Tue01/23/20 at 1130, Until Tue01/23/20 at 1336, Anesthesia Intra-op, Routine Given 01/23/2020 11:30 AM EDT 1,000 mg documented in this encounter Care Teams Conveyor Belt Installer Relationship Specialty Start Date End Date Ritu Bolaños APRN [address] [place] [address] PCP - General 05/07/15 02/03/22 documented as of this encounter
--- OUTSIDE RECORDS SUMMARY | 2024-04-12 15:15 | XMS_ITS | Encounter Summary ---
Author Organization [facility] Address [address] [facility] [place] [address] Care Team Providers Care Rotating Equipment Specialist Name Role Phone Ritu Bolaños APRN Primary Care Provider +1- [phone] Encounter Details Date Type Department Care Team (Late st Contact Info) Description 01/23/2020 Interpretation Only Radiology [address] [facility] [place] [address] Unknown None Social History Tobacco Use Types Packs/Day Years [...] Procedure Name Priority Date/Time Associated Diagnosis Comments APD OR ENDOSCOPY Routine 01/23/2020 1:00 PM EDT documented in this encounter Results * APD OR Endoscopy (01/23/2020 1:00 PM EDT) Anatomical Region Laterality Modality Other Narrative 01/23/2020 1:00 PM EDT Photographs ? Images Procedure Note Unknown - 01/23/2020 Photographs ? Images Unknown EA IMAGES documented in this encounter Visit Diagnoses Not on filedocumented in this encounter Care Teams Rotating Equipment Specialist Relationship Specialty Start Date End Date Ritu Bolaños APRN [address] [place] [address] PCP - General 05/07/15 02/03/22 documented as of this encounter
--- OUTSIDE RECORDS SUMMARY | 2024-04-12 15:15 | XMS_ITS | Encounter Summary ---
Author Organization [place] [address] Care Team Providers Care Greens Tier Name Role Phone Ritu Bolaños APRN Primary Care Provider +1- [phone] Reason for Referral * Home Health Care (Routine) - Closed Specialty Diagnoses / Procedures Referred By Contac t Referred To Contact Diagnoses Iliotibial band syndrome, right Pain in right hip Trochanteric bursitis of right hip Claudio Cox MD [address] [place] [address] Unknown None Referral ID Status Reason Start Date Expiration Date V isits Requested Visits Authorized [id number] Closed Continuity of Care 11/27/2019 05/25/2020 1 1 Encounter Details Date Type Department Care Team (Late st Contact Info) Description 11/27/2019 Orders Only Orthopaedics at [facility] [address] [place] [address] Claudio Cox MD [address] [place] [address] Iliotibial band syndrome, right; Pain in right hip; Trochanteric bursitis of right hip Social History [...] as of this encounter Plan of Treatment Scheduled Referrals Name Type Priority Associated Diagnoses Orde r Schedule Referral to Home Health - Clinic Use Outpatient Referral Routine Iliotibial band syndrome, right Pain in right hip Trochanteric bursitis of right hip Ordered: 11/27/2019 documented as of this encounter Visit Diagnoses Diagnosis Iliotibial band syndrome, right Pain in right hip Pain in joint, pelvic region and thigh Trochanteric bursitis of right hip Enthesopathy of hip region documented in this encounter Care Teams Greens Tier Relationship Specialty Start Date End Date Ritu Bolaños APRN [address] [place] [address] PCP - General 05/07/15 02/03/22 documented as of this encounter
--- OUTSIDE RECORDS SUMMARY | 2024-04-12 15:15 | XMS_ITS | Encounter Summary ---
[place] [address] Care Team Providers Care Electrician Wiring Name Role Phone Ritu Bolaños APRN Primary Care Provider +1- [phone] Reason for Visit * Reason Comments Follow Up Surgery Encounter Details Date Type Department Care Team (Late st Contact Info) Description 10/10/2019 3:00 PM EST Office Visit Orthopaedics at [facility] [address] [place] [address] Christiana Gaspar PA [address] [place] [address] Status post total hip replacement, right; Lateral pain of right hip Social History Tobacco Use [...] as of this encounter Progress Notes * Christiana Gaspar PA - 10/10/2019 3:00 PM EST Date of Surgery: 06/19/2019 Procedure: Right total hip arthroplasty via direct anterior approach Jigna Espinoza is a 74 y.o. female presents today for a third postoperative visit after undergoing a total hip arthroplasty with Dr. Soto. She is now approximately 3 months status post right totalhip arthroplasty. She underwent a abductor tendon repair with about a year ago. She tells me today that she is frustrated by her ongoing pain. Her pain is primarily lateral in nature. She does feel as though she has a leg length discrepancy, complains that her surgical extremity is shorter. She tells me that she cannot lie on the right side. She can only walk short distances before she develops a limp in the right lower extremity. She has had [address] Fontanez including a laminectomy and then two fusions. She is currently full weightbearing with the assistance of a cane. Pain: 3/10 Current pain medications: None DVT Prophylaxis: Completed 4 weeks post op Physical Therapy: Last day was yesterday Leg Length Discrepancy: Admits PHYSICAL EXAM: Well-appearing female in NAD. A&O x 3 and answers all questions appropriately. Slowly gets up from a seated position. Trendelenberg gait with a cane. Right leg 2mm shorter TTP over the gluteus medius insertion Incision is well healed without erythema or drainage. Decreased sensation in the anterolateral thigh. Hip ROM: 90 degrees flexion, 10 degrees IR, 40 degrees ER, 30 degrees abduction Strength: 5/5 hip flexion, 3/5 abduction, 5/5 adduction, 4/5 clam shell Lateral hip pain with resisted hip flexion Calves are soft and nontender. Negative Eliecer's. X-RAYS: AP pelvis and frog leg lateral views were reviewed and demonstrate a stable, well seated total hip arthroplasty in good position with no evidence of loosening, subsidence or periprosthetic fracture. ASSESSMENT: 16 weeks s/p Right total hip arthroplasty via direct anterior approach with Dr. Soto, persistent lateral hip pain PLAN: Jigna is now approximately 3 and half months status post right total hip arthroplasty with Dr. Soto. At this point she is frustrated and feels as though she is no longer making any progress. She has persistent lateral hip pain. She did have a abductor tendon repair with about a year ago. She continues to have weakness in her hip abductors and walks with a Trendelenburg gait. We discussed that at this point she has no further restrictions in regards to the hip replacement. She should continue to increase her activity to tolerance. In regards to her lateral hip pain we have sent a prescription for topical Voltaren gel. She was also given a referral to sports medicine with . He is able to see her today for evaluation. We did discuss that it seems that her pain is coming from the gluteus medius insertion and bursa however there is certainly a possibility that some ofthis could be radicular pain from her lower back however she has no other neurologic deficits. We discussed the appropriate precautions surrounding dental prophylaxis. The patient should avoid elective dental procedures for the first 6 months after surgery. After 6 months, antibiotics will notbe required for routine dental cleanings. Patient advised to call our office before any more invasive dental work to determine if a prophylactic antibiotic is warranted. documented in this encounter Plan of Treatment Not on file documented as of this encounter Visit Diagnoses Diagnosis Status post total hip replacement, right Lateral pain of right hip documented in this encounter Care Teams Electrician Wiring Relationship Specialty Start Date End Date Ritu Bolaños APRN [address] [place] [address] PCP - General 05/07/15 02/03/22 documented as of this encounter
--- OUTSIDE RECORDS SUMMARY | 2024-04-12 15:15 | XMS_ITS | Encounter Summary ---
Author Organization [facility] [place] [address] Care Team Providers Care Animal Cruelty Investigation Supervisor Name Role Phone Ritu Bolaños APRN Primary Care Provider [phone] Reason for Visit * Reason Comments Follow-up Back Pain with RIGHT Lateral Hip Pain, IT band snapping, & leg length discrepancy * Consultation (Routine) - Closed Specialty Diagnoses / Procedures Referred By Lennox jaramillo Referred To Contact Sports Medicine Diagnoses S/P hip arthroscopy Sacroiliac joint dysfunction of both sides Regla Cox PA [address] [place] [address] Roberto Carlos Aguilar MD [address] [place] [address] Referral ID Status Reason Start Date Expiration Date V isits Requested Visits Authorized [id number] Closed Specialty Service Requested 05/06/2020 05/06/2021 1 1 Encounter Details Date Type Department Care Team (Late st Contact Info) Description 10/02/2020 2:00 PM EST [facility] [address] [place] [id number] Roberto Carlos Aguilar MD [address] [facility] [place] [id number] Iliotibial band syndrome, right (Primary Dx); Trochanteric bursitis, right hip Social History Tobacco Use Types Packs/Day Years Used Date Smoking Tobacco: Former Cigarettes 0.5 25 1 945 - 1969 Smokeless Tobacco: Never Alcohol Use Standard Drinks/Week Comments Yes 0 (1 standard drink = 0.6 oz pur e alcohol) SELDOM Sex and Gender Information Value Date Recorded Sex Assigned at Not on file Gender Identity Female 09/25/2020 7:37 PM EST Sexual Orientation Not on file documented as of this encounter Last Filed Vital Signs Vital Sign Reading Time Taken Comments Blood Pressure 123/78 10/02/2020 1:59 PM EST Pulse 80 10/02/2020 1:59 PM EST Temperature 36.1 ??C (97 ??F) 10/02/2020 1:59 PM EST Respiratory Rate 20 10/02/2020 1:59 PM EST Oxygen Saturation 97% 10/02/2020 1:59 PM EST Inhaled Oxygen Concentration - - Weight 62 kg (136 lb 11 oz) 10/02/2020 1:[address] Height 159.5 cm (5' 2.8) 10/02/2020 1:59 PM EST Body Mass Index 24.37 10/02/2020 1:59 PM EST documented in this encounter Patient Instructions * Patient Instructions* Roberto Carlos Aguilar MD - 10/02/2020 2:00 PM EST Images from the original note were not included. Jigna: It was nice to see you today. Below are your instructions after your injections today. In addition to instructions for post cortisone injection protocols is an information sheet about perineural dextrose injection therapy if you are interested. There is a link to a website which will give you more information on this as well. Please keep a pain log until her follow-up visit which will be in 4 to 6 weeks by telemedicine. Call with any questions or concerns. Post cortisone injection instructions Relative rest of [...] to take effect and provide pain relief. Perineural dextrose injection therapy - information sheet Our bodies contain billions of nerve cells, all constantly providing feedback to our brains about what is going on in our bodies. This includes telling our brain when something hurts and when we are in pain. Many times when experiencing pain, what we describe as a ???pulled muscle?? or a ???knot?? may actually be nerve tension, where the nerve has become caught in the fascia and is being pulled. However, there are exciting new treatments available to address these issues. [facility] sports medicine offers Perineural Injection Treatment as an option for the treatment of both acute and chronic pain. The Treatment The Perineural Injection Treatment protocol was originally pioneered by [facility] physician, Dr. Claudio Aparicio (pronounced ???Liftoff?? ). He has published research and has found great results with this type of treatment. Prior to any treatment being performed, a trained physician should provide an accurate diagnosis and assessment of your symptoms. Dr. Aguilar will first perform a physical exam to determine the potential cause of your pain and assess if this treatment would be appropriate to treat your specific situation. The treatment utilizes a buffered, diluted glucose (sugar) solution and a series of microinjections are performed around the affected area. Not only is the affected area treated, but oftentimes patients have good results from treating the entire distribution of the nerve. Most people will experience pain relief for multiple hours up to multiple days, then will notice a recurrence of their symptoms. With each subsequent treatment, your nerves are being ???calmed down?? , and the results last longer. Many patients require 6-8 treatments, at 2-3 week intervals, with improving results each time. The Science In our nerve cells, we have various receptors and fibers that are equipped to sense a variety of stimuli including those that are chemical, physical and hormonal. Some of these fibers, up to about half, are called ???pain fibers?? , or more scientifically, peptidergic nociceptors. When these are activated, they sometimes don???t shut off properly and contribute to chronic pain. Perineural Injection Treatment works to responds to neurogenic inflammation and restore homeostasisto the internal environment of the nerve. It ???calms down?? the nerves, and allows them to returnto the state where they should exist. Part of this is related to the mechanism of peptidergic nociceptors themselves. In addition to transmitting impulses regarding pain, they are also able to detect imbalances in acid levels or glucose levels. By introducing a glucose/sugar solution, homeostasis can be restored, and pain can be relieved. For more information, please visit Dr. Aparicio???s website at: [email or web address] Patient Education Hip Bursitis: Care Instructions Your Care Instructions Bursitis is inflammation of the bursa. A bursa is a small sac of fluid that cushions a joint and helps it move easily. A bursa sits between a bone in the hip and the muscles and tendons in the thigh and buttock. Injury or overuse of the hip can cause bursitis. Activities that can lead to bursitis include twisting and rapid joint movement. Bursitis can cause hip pain. Bursitis usually gets better if you avoid the activity that caused it. If pain lasts or gets worse despite home treatment, your doctor may draw fluid from the bursa through a needle. This may relieveyour pain and help your doctor know if you have an infection. If so, your doctor will prescribe antibiotics. If you have inflammation only, you may get a corticosteroid shot to reduce swelling and pain. Sometimes surgery is needed to drain or remove the bursa. Follow-up care is a hampton part of your treatment and safety. Be sure to make and go to all appointments, and call your doctor if you are having problems. It's also a good idea to know your test resultsand keep a list of the medicines you take. How can you care for yourself at home? ?? Put ice or a cold pack on your hip for 10 to 20 minutes at a time. Put a thin cloth between the ice and your skin. ?? After 3 days of using ice, you may use heat on your hip. You can use a hot water bottle, a heating pad set on low, or a warm, moist towel. ?? Rest your hip. Stop any activities that cause pain. Switch to activities that do not stress yourhip. ?? Take your medicines exactly as prescribed. Call your doctor if you think you are having a problem with your medicine. ?? Ask your doctor if you can take an kuju-xjx-aqevplq pain medicine, such as acetaminophen (Tylenol), ibuprofen (Advil, Motrin), or naproxen (Aleve). Be safe with medicines. Read and follow all instructions on the label. ?? To prevent stiffness, gently move the hip joint as much as you can without pain every day. As the pain gets better, keep doing nkyxn-yi-sovcgs exercises. Ask your doctor for exercises that will make the muscles around the hip joint stronger. Do these as directed. ?? You can slowly return to the activity that caused the pain, but do it with less effort until youcan do it without pain or swelling. Be sure to warm up before and stretch after you do the activity. When should you call for help? Call your doctor now or seek immediate medical care if: ? You have a fever. ? You have increased swelling or redness in your hip. ? You cannot use your hip, or the pain in your hip gets worse. Watch closely for changes in your health, and be sure to contact your doctor if: ? You have pain for 2 weeks or longer despite home treatment. Where can you learn more? Visit our [employer] information library at [email or web address]o You can also view health information on [employer], your personal patient account. Log in or sign uptoday. Enter I156 in the search box to learn more about Hip Bursitis: Care Instructions. Current as of: November 19, 2019?Content Version: 12.7 ?? [employer]. Care instructions adapted under license by [facility]. If you have questions about a medical condition or this instruction, always ask your healthcare professional. [employer] disclaims any warranty or liability for your use of this information. Patient Education Hip Bursitis: Exercises Introduction Here are some examples of exercises for you to try. The exercises may be suggested for a condition or for rehabilitation. Start each exercise slowly. Ease off the exercises if you start to have pain. You will be told when to start these exercises and which ones will work best for you. How to do the exercises Hip rotator stretch 1. Lie on your back with both knees bent and your feet flat on the floor. 2. Put the ankle of your affected leg on your opposite thigh near your knee. 3. Use your hand to gently push your knee away from your body until you feel a gentle stretch around your hip. 4. Hold the stretch for 15 to 30 seconds. 5. Repeat 2 to 4 times. 6. Repeat steps 1 through 5, but this time use your hand to gently pull your knee toward your opposite shoulder. Iliotibial band stretch 1. Lean sideways against a wall. If you are not steady on your feet, hold on to a chair or counter. 2. Stand on the leg with the affected hip, with that leg close to the wall. Then cross your other leg in front of it. 3. Let your affected hip drop out to the side of your body and against wall. Then lean away from your affected hip until you feel a stretch. 4. Hold the stretch for 15 to 30 seconds. 5. Repeat 2 to 4 times. Straight-leg raises to the outside 1. Lie on your side, with your affected hip on top. 2. Tighten the front thigh muscles of your top leg to keep your knee straight. 3. Keep your hip and your leg straight in line with the rest of your body, and keep your knee pointing forward. Do not drop your hip back. 4. Lift your top leg straight up toward the ceiling, about 12 inches off the floor. Hold for about 6 seconds, then slowly lower your leg. 5. Repeat 8 to 12 times. Clamshell 1. Lie on your side, with your affected hip on top and your head propped on a pillow. Keep your feet and knees together and your knees bent. 2. Raise your top knee, but keep your feet together. Do not let your hips roll back. Your legs should open up like a clamshell. 3. Hold for 6 seconds. 4. Slowly lower your knee back down. Rest for 10 seconds. 5. Repeat 8 to 12 times. Follow-up care is a hampton part of your treatment and safety. Be sure to make and go to all appointments, and call your doctor if you are having problems. It's also a good idea to know your test resultsand keep a list of the medicines you take. Where can you learn more? Visit our [employer] information library at [email or web address]/Flite You can also view health information on [employer], your personal patient account. Log in or sign uptoday. Enter H674 in the search box to learn more about Hip Bursitis: Exercises. Current as of: November 19, 2019?Content Version: 12.7 ?? [employer]. Care instructions adapted under license by [facility]. If you have questions about a medical condition or this instruction, always ask your healthcare professional. [employer] disclaims any warranty or liability for your use of this information. documented in this encounter Progress Notes * Roberto Carlos Aguilar MD - 10/02/2020 2:00 PM EST CC - Right lateral hip pain HPI - Jigna Espinoza is a 75 y.o. female who presents with a 2 year history of Right lateral hip pain. She presents today at the request of Gwendolyn Cox of [facility] orthopedics. She has had pain at the greater trochanteric region of her right hip prior to and ever since abductor surgical repair performed by Dr. Cox in May 2017. She had another lateral hip arthroscopy with Dr. Cox in January2020. She felt better for a while but her lateral hip and thigh is again bothering her with pain and weakness. She has a Trendelenburg gait and feels better when she is in the Trendelenburg position.She feels unstable when she has her weight on her right foot. She took a fall in May and fractured her right humeral head. She was treated nonsurgically for her right shoulder fracture. She is trying to be active and just completed physical therapy for her shoulder. She tries to do her home exercises for gluteal strengthening and is frustrated by lack of progress. She continues to take Celebrex once per day. She denies any numbness or tingling down the legs and denies saddle anesthesia, de nies incontinence of bowel or bladder. Physical exam: Age-appropriate woman no acute distress. No tenderness palpation or fist percussion along the spine or SI joints. Gluteus medius mildly tender right, nontender left. Greater trochantermoderately tender right, slightly tender left. Iliotibial band moderately tender right, nontender left. Gait is somewhat antalgic with right-sided Trendelenburg gait. She has great difficulty standing on her right foot and keeping her balance. She does a much better job standing on her left foot and keeping her balance. Assessment: Trochanteric bursitis right hip status post abductor surgical repair in 2016 and hip replacement surgery in 2018. Repeat Right hip arthroscopic January 2020 for debridement of adherent fibrotic tissue at level of greater trochanteric bursa, arthroscopic release of incarcerated iliotibial band from adherent fibrotic tissue, percutaneous release of adherent fibrotic tissue Plan: Trial of trochanteric bursal injection with tensor fascia daniel/iliotibial band perineural dextrose injection therapy. Continue with stretching and home exercises for gluteal strengthening, balance and core stability. Follow-up by telemedicine in 4 to 6 weeks. Patient will keep a pain log in the interim. We may repeat this procedure if beneficial. Procedure:Ultrasound-guided right trochanteric bursal injection Risks reviewed-infection, allergic reaction, vascular injury, nerve injury, worsening of symptoms, failure to improve, side effects from steroids. Patient consents to procedure Lateral decubitus position. Gluteus medius and trochanteric bursa identified using CorvilP9 ultrasound with low-frequency curvilinear probe. After sterile prep with chlorhexidine and alcohol, anesthetized a wheal under the skin using 1% lidocaine using a 2 inch 25 g needle. I then switched syringes and injected 1 mL triamcinolone, 3 ml 1% lidocaine. I then prepped the lateral right thigh from tensor fascia daniel to the lateral femoral condyle with chlorhexidine and alcohol and injected along the tibial band with a 0.5 inch 27-gauge needle, injecting 5% dextrose buffered with lidocaine into the subcutaneous fascia and a peppering 1 x 1 cm grid fashion. Total of 34 injections, equally dividing 3 mL 1% lidocaine, 3 mL sodium chloride, 0.5 mL 50% dextrose. Injection sites covered with gauze and paper tape and postinjection instructions given. Follow-up as above by telemedicine in 4 to 6 weeks, earlier with questions or concerns. Avoid pools, hot tubs and bathing for the next 72 hours. Showers are okay documented in this encounter Plan of Treatment Not on file documented as of this encounter Visit Diagnoses Diagnosis Iliotibial band syndrome, right- Primary Trochanteric bursitis, right hip documented in this encounter Administered Medications Inactive Administered Medications - up to 3 most recent administrations Medication Order MAR Action Action Date Dose Rate Site dextrose 50% intravenous solution 0.5 mL 0.5 mL, Intravenous, ONCE, 1 dose, On Tammy 10/02/20 at 1515, Warning Vesicant/Irritant Medication , Routine Given 10/02/2020 2:48 PM EST 0.5 mLs lidocaine (pf) (Xylocaine) (10 mg/mL) 1% injection 30 mg 30 mg (3 mL), Intra-articular, ONCE, 1 dose, On Tammy 10/02/20 at 1515, Routine Given 10/02/2020 2:49 PM EST 30 mg sodium chloride 0.9 % (flush) flush 3 mL 3 mL, Intravenous, ONCE, 1 dose, On Tammy 10/02/20 at 1515, Routine Given 10/02/2020 2:51 PM EST 3 mLs triamcinolone acetonide (Kenalog-40) (40 mg/mL) injection 40 mg 40 mg, Intramuscular, ONCE, 1 dose, On Tammy 10/02/20 at 1515, Routine Given 10/02/2020 2:51 PM EST 40 mg documented in this encounter Care Teams Animal Cruelty Investigation Supervisor Relationship Specialty Start Date End Date Ritu Bolaños APRN [address] [place] [address] PCP - General 05/07/15 02/03/22 documented as of this encounter
--- OUTSIDE RECORDS SUMMARY | 2024-04-12 15:15 | XMS_ITS | Encounter Summary ---
[place] [address] Care Team Providers Care Hotel Staff Member Name Role Phone Ritu Bolaños APRN Primary Care Provider [phone]- [phone] Reason for Visit * Reason Comments Follow-up Right hip pain Encounter Details Date Type Department Care Team (Late st Contact Info) Description 11/22/2019 1:00 PM EST Office Visit Orthopaedics at [facility] [address] [place] [address] Claudio Cox MD [address] [place] [address] Status post total hip replacement, right; Iliotibial band syndrome, right; Pain in right [...] as of this encounter Progress Notes * Claudio Cox MD - 11/22/2019 1:00 PM EST Chief Complaint: Chief Complaint Patient presents with ??? Follow-up Right hip pain PCP: Ritu Bolaños APRN Workers Comp: No Jigna Dumont Alexis is a 74 y.o. female presents to the orthopedic clinic at the request of Roberto Carlos Aguilar for right hip pain. She is accompanied by her for today's visit. 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 HPI: Pertinent information obtained from Roberto Carlos Aguilar's note dated 10/10/19 Jigna Espinoza is a 74 y.o. female who presents with a 2 year history of Right lateral hip pain. She presents today at the request of her orthopedic surgeon Dr. Eric Soto at [facility] who performed her hip replacement in June 2019. She has had pain at the greater trochanteric region of her right hip prior to and ever since abductor surgical repair performed by Dr. Cox in May 2017. In the interim she is also had 3 back surgeries including laminectomy, and 2 fusion surgeries all performed by Dr. Nick Fontanez of [facility] neurology and neurosurgery. Patient has pain with ambulation along with feeling of weakness and instability and snapping in the lateral aspect of her right hip when she bears weight. She is to be a very avid runner and athlete participating in [employer]. Her last 5K was in 2015. She is now been able to run since her multiple surgeries. She is back to walking 1 mile per day on a treadmill along with some light weights. She does a little bit of gardening but [...] of physical therapy near her home in [facility]. She feels like the exercises given to her PT often make her hip feel worse. There is been focuson mobilizing the iliotibial band and lateral hip region She reports that she continues to have pain and popping along her greater trochanteric bursal region and iliotibial band of her right leg that continues to radiate down her leg. She is very frustrated with the olguin and its effect on her ambulation, ADLs and sleep. Imaging: Right hip xrays have been performed recently to further assess her hip complaint The imaging was available and reviewed in clinic with the patient. The findings are documented in the physical exam below. REVIEW OF SYSTEMS: Constitutional: Denies fever, chills, fatigue Cardiovascular: Denies chest pain Respiratory: Denies shortness of breath Gastrointestinal: Denies nausea, vomiting, diarrhea, constipation or abdominal pain Neurovascular: Denies numbness or tingling Musculoskeletal: Admits constant pain in the right hip Psychiatric: Mood and affect appropriate Radiating pain: none Physical Exam: There were no vitals taken for this visit. Constitutional: well-developed, well-nourished, well-groomed, body habitus normal Head/Face : Atraumatic, normocephalic General: alert and oriented x3. Gait/Station: gets up slowly from a seated position, walking with limp due to right hip pain Right Hip Exam: Inspection: no ecchymosis, no [...] unable to perform Trendelenberg due to pain Neurovascular: Normal sensation to light touch along lower extremity nerve distributions. DP and PTpulses are 2+ and equal bilaterally with good foot perfusion. Imaging: Previous MRI with large fluid collection in region lateral to greater trochanter and medial to iliotibial band, fraying of ITB, gluteus medius repair appears intact Assessment/Plan Jigna Espinoza presents to clinic for follow up for continued right lateral hip pain. She has undergone previous gluteus medius tendon tear repair followed by staged total hp arthroplasty She is frustrated by continued right hip and lateral thigh pain that has persisted for almost three years despite conservative therapies including cortisone injections and fluid aspirations. She continues to have painful popping sensations, pain radiating down her leg, and walks with a limp. The pain is interfering with her ability to be as active as she desires, ability to perform normal ADL's and is interfering with her sleep despite conservative therapies. The pathophysiology and treatment options were discussed in detail. Her treatment plan will be determined by how she is able to do what she want to do. Treatment options were discussed with the patient to include surgical intervention of arthroscopic greater trochanteric bursectomy with IT band release SURGICAL CASE INFO: Procedure: right hip arthroscopic greater trochanter bursectomy with iliotibial band release CPT Codes: email coding ( [place] 34[address], and [address]22 this is going to be arthroscopic not sure ofcodes) Equipment/Implants: Equipment Required: [employer] arthroscopy set (Enter special request type in comments) and InToTally wand Patient Position: Supine with penny stand and large pillow Anesthesia Request: General C-Arm: None Scheduling Instructions: Experel documented in this encounter Plan of Treatment Scheduled Orders Name Type Priority Associated Diagnoses Orde r Schedule TROCHANTERIC BURSA EXCISION Procedures Routine Status post total hip replacement, right Iliotibial band syndrome, right Pain in right hip Ordered: 11/22/2019 documented as of this encounter Visit Diagnoses Diagnosis Status post total hip replacement, right Iliotibial band syndrome, right Pain in right hip Pain in joint, pelvic region and thigh Trochanteric bursitis of right hip Enthesopathy of hip region documented in this encounter Care Teams Hotel Staff Member Relationship Specialty Start Date End Date Ritu Bolaños APRN [address] [place] [address] PCP - General 05/07/15 02/03/22 documented as of this encounter
--- OUTSIDE RECORDS SUMMARY | 2024-04-12 15:15 | XMS_ITS | Encounter Summary ---
Author Organization [place] [address] Care Team Providers Care Loom Operator Name Role Phone Ritu Bolaños APRN Primary Care Provider +1- [phone] Reason for Referral * Consultation (Routine) - Closed Specialty Diagnoses / Procedures Referred By Lennox jaramillo Referred To Contact Sports Medicine Diagnoses S/P hip arthroscopy Sacroiliac joint dysfunction of both sides Regla Cox PA [address] [id number] Roberto Carlos Aguilar MD 10 [facility] [place] [id number] Referral ID Status Reason Start Date Expiration Date V isits Requested Visits Authorized [id number] Closed Specialty Service Requested 05/06/2020 05/06/2021 1 1 Encounter Details Date Type Department Care Team (Late st Contact Info) Description 05/06/2020 10:30 AM EDT Office Visit Orthopaedics at [facility] [address] [place] [id number] Regla Cox PA [address] [place] [address] S/P hip arthroscopy; right greater troch bursectomy; 01/23/2020; Dr. Cox; Sacroiliac joint dysfunction of both sides Social [...] Progress Notes * Regla Cox PA - 05/06/2020 10:30 AM EDTSummary: S/P right hip arthroscopy PATIENT NAME: Jigna Espinoza AGE: 75 y.o. MR#: [id number] DATE OF VISIT: 05/06/2020 DATE OF SURGICAL PROCEDURE: 01/23/2020 SURGICAL PROCEDURE PERFORMED: Right hip arthroscopic debridement of adherent fibrotic tissue at level of greater trochanteric bursa, arthroscopic release of incarcerated iliotibial band from adherentfibrotic tissue, percutaneous release of adherent fibrotic tissue subcutaneous level SURGEON: Claudio Cox MD CHIEF COMPLAINT: Post-op visit s/p hip arthroscopy HISTORY OF PRESENT ILLNESS Jigna gilman 75 y.o. female presents to the office in follow-up after undergoing a right lateral hip arthroscopy. She continues to have quite a bit of discomfort and mild swelling along the lateral hip and thigh, traveling into the knee at time. She is having difficulty sleeping and usually uses a pillow betweenher knees. The greatest pain is after she sits for a period of time. She will have to stand and letthe pain subside before she starts walking again. She is recovering at home, icing frequently, and increasing activity level to tolerance. The patient is full weight bearing with use of a straight cane for assistance primarily when leaving the house. She admits a limp that worsens as she starts to get tired with walking. She had been placing a shoe lift in her right shoe and after obtaining standing alignment films showing the right leg measures 1 cm longer, she attempted to remove the lift andwork on SI joint therapies but this was without benefit. She clearly walks with a short right leg and unlevel hips without the lift in her shoe. She feels she might be a little better than at the previous visit and is in better spirits, but still feels the pain and weakness. She is frustrated that she has not been able to return to walking for exercises. She reports she is still getting the snapping in her lateral hip but it only occurs with she hip flexes to the end of her range to work on stretching the gluteals and it is not painful but makes her hip 'jerk'. She has a long history of left si joint pain with walking or standing too long but has no pain today. Pain Medications: Celebrex 200 mg once daily. Tylenol 1300 mg twice daily. She was treated with a Medrol dose shari without benefit. Post-op DVT Prophylaxis: Aspirin 81 mg once daily. Physical Therapy: Light home exercises. Outpatient PT at [facility] without benefit. PT has been working on strengthening, massage, and manual therapies but without great benefit. Jigna feels that PT is not able to offer anything more than the are currently doing and she is ready to discontinue. X-rays were obtained during today's office visit. REVIEW OF SYMPTOMS: Constitutional: Denies fever, chills, fatigue Cardiovascular: Denies chest pain Respiratory: Denies shortness of breath Gastrointestinal: Denies nausea, vomiting, diarrhea, constipation or abdominal pain Neurovascular: Denies numbness or tingling Musculoskeletal: Admits lateral hip/snap and thigh pain, mild swelling lateral hip and thigh Psychiatric: Mood and affect appropriate PHYSICAL EXAM: General: alert, oriented, and in no acute distress Right Hip Exam: Inspection: no ecchymosis, no erythema, mild swelling, no deformity, gluteus medius/minimus atrophyand decreased definition compared to left side Palpation: mild tenderness to palpation of gluteals, TFL, piriformis, IT Band, and greatest over greater trochanteric bursal region; very good muscle activation with palpation during hip extension, gluteal squeeze, and abduction ROM: Discomfort and IT Band snapping elicited with end range of motion with hip flexion, but overall maintaining good passive and active motion; quadriceps tight and lead to hip lift in prone position (right > left) Strength: 4+/5 hip flexion, 4/5 hip extension in standing but unable to perform hip extension from a prone position, 4/5 abduction, 4/5 adduction, 4-/5 internal rotation, 4-/5 external rotation, and 4+/5 knee flexion/extension Orthopedic testing: Trendelenburg positive but with improved control, KADE positive for lateral discomfort, Ruben positive , SI Joint positive dysfunction but no pain, Straight Leg Raise negative , Hip Scour Test negative, Piriformis Test positive and Leg Length abnormal with right leg 1 cm short in standing and with supine to sit testing; appears to have rotated sacroiliac joint alignment with no benefit from manual therapies Neurovascular: normal sensation to light touch along [...] prosthesis) is slightly longer than the left. Electronically signed by: Brady Alvarez [facility] ([phone]), at 03/24/2020 11:56 AM ASSESSMENT/PLAN: Jigna Espinoza [...] ongoing pain, swelling, weakness, and antalgic gait. Examination today shows improvement in her strength and slightly better tolerance to single leg stance. She continues to have sacroiliac dysfunction that has failed to improve with ongoing SI joint manual therapies at PT. Plan to discontinue physical therapy as it is no longer provided benefit. Strongly encouraged continuation of home exercise program for strengthening. Advised patient to discontinue stretching her hip/gluteals to the point that it causes the snappingpain. Recommend avoiding this to reduce the constant friction and inflammation in the area. She is quite flexible when stretching the hamstrings and gluteals and I do not think this is offering benefit, instead exacerbating her symptoms. Provided a hand out with SI joint muscle energy techniques that she can perform at home. Recommend stretching the quadriceps and hip flexors, primarily on the right. Can use a tennis ball and foam roller as needed. Use of a cane until strength/balance improve. Avoid limping, encouraged use of a cane or walking sticks, especially as she gets tired. Encouraged wearing supportive sneakers for all daily activities an avoid flip flops and walking barefoot at this time. Return to use of right shoe insert, recommend a full length insert. Consider use of SI joint belt or hip spica wrap for improved stability and support. Recommend performing exercises in front of a mirror to educate on avoidance of the hip drop. Use of Tylenol 500 mg every 4 hours or 1000 mg orally every 8 hours or 1300 mg BID as needed for postoperative pain. Do not take more than 3000 mg of Tylenol from all sources in a 24-hour. Use of Celebrex 200 mg once daily with food for postoperative pain and inflammation. Use of OTC Voltaren gel topically on the lateral hip. Provided a referral to return to see Roberto Carlos Aguilar MD, for additional non- surgical treatment options for chronic lateral hip pain. Plan to follow-up 3 months. Please call the office if you have any questions or concerns prior to your next follow-up visit. documented in this encounter Plan of Treatment Scheduled Referrals Name Type Priority Associated Diagnoses Orde r Schedule Referral to Sports Medicine Outpatient Referral Routine S/P hip arthroscopy; right greater troch bursectomy; 01/23/2020; Dr. Cox Sacroiliac joint dysfunction of both sides Ordered: 05/06/2020 documented as of this encounter Visit Diagnoses Diagnosis S/P hip arthroscopy; right greater troch bursectomy; 01/23/2020; Dr. Cox Sacroiliac joint dysfunction of both sides Disorders of sacrum documented in this encounter Care Teams Loom Operator Relationship Specialty Start Date End Date Ritu Bolaños APRN [address] [place] [address] PCP - General 05/07/15 02/03/22 documented as of this encounter
--- OUTSIDE RECORDS SUMMARY | 2024-04-12 15:15 | XMS_ITS | Encounter Summary ---
Author Organization [facility] [place] [address] Care Team Providers Care Hedge Trimmer Name Role Phone Ritu Bolaños APRN Primary Care Provider +1- [phone] Encounter Details Date Type Department Care Team (Late st Contact Info) Description 07/04/2020 Abstract Surgical Specialties at [facility] [place] [address] Sherie Antunez, [facility] Social History Tobacco Use Types Packs/Day Years [...] on filedocumented in this encounter Care Teams Hedge Trimmer Relationship Specialty Start Date End Date Ritu Bolaños APRN [address] [place] [address] PCP - General 05/07/15 02/03/22 documented as of this encounter
--- OUTSIDE RECORDS SUMMARY | 2024-04-12 15:15 | XMS_ITS | Encounter Summary ---
Author Organization [facility] [place] [address] Care Team Providers Care Floor Worker Well Service Name Role Phone Ritu Bolaños APRN Primary Care Provider +1- [phone] Encounter Details Date Type Department Care Team (Late st Contact Info) Description 07/18/2019 Orders Only Orthopaedics at [facility] [address] [place] [address] Eric Soto MD [address] [email or web address] [address] Social History Tobacco Use Types Packs/Day Years [...] on filedocumented in this encounter Care Teams Floor Worker Well Service Relationship Specialty Start Date End Date Ritu Bolaños APRN [address] [place] [id number] PCP - General 05/07/15 02/03/22 documented as of this encounter
--- OUTSIDE RECORDS SUMMARY | 2024-04-12 15:15 | XMS_ITS | Encounter Summary ---
Author Organization [facility] [address] Care Team Providers Care Park Guard Name Role Phone Ritu Bolaños APRN Primary Care Provider +1- [phone] Encounter Details Date Type Department Care Team (Latest Contact Info) Description 02/19/2020 9:00 AM EDT TH Visit (TeleHealth) Orthopaedics at [facility] [address] [place] [address] Regla Cox PA [address] [place] [address] S/P hip arthroscopy; right greater troch bursectomy; [...] this encounter Patient Instructions * Patient Instructions* Regla Cox PA - 02/19/2020 9:00 AM EDT Weight bearing as tolerated. Use of a cane until strength/balance improve. Avoid limping, encouraged use of a cane as she gets tired. Strongly encouraged wearing supportive sneakers for all daily activities an avoid flip flops and walking barefoot at this time. Physical therapy to focus on edema reduction, pain management, scar tissue prevention, hip range ofmotion to tolerance and guided progression with strengthening exercises (especially gluteals). Recommend icing, rest, and elevation above the level of the heart. Use of Tylenol 500 mg every 4 hours or 1000 mg orally every 8 hours or 1300 mg BID as needed for postoperative pain. Do not take more than 3000 mg of Tylenol from all sources in a 24-hour. Use of Celebrex 200 mg once daily with food for postoperative pain and inflammation. Use of OTC Voltaren gel topically on the lateral hip. Prescribed a Medrol dose shari to reduce localized pain and inflammation. Avoid use of NSAIDS with this medication and then resume the Celebrex once the rx is complete. Consider use of a hip spica wrap or SI joint belt for support of the hip and compression to reduce localized hip inflammation. Plan to follow-up at 4 weeks postop. Please call the office if you have any questions or concerns prior to your next follow-up visit. documented in this encounter Progress Notes * Regla Cox PA - 02/19/2020 9:00 AM EDT PATIENT NAME: Jigna Espinoza AGE: 74 y.o. MR#: [id number] DATE OF TELEHEALTH VISIT: 02/19/2020 DATE OF SURGICAL PROCEDURE: 01/23/2020 SURGICAL PROCEDURE PERFORMED: Right hip arthroscopic debridement of adherent fibrotic tissue at level of greater trochanteric bursa, arthroscopic release of incarcerated iliotibial band from adherentfibrotic tissue, percutaneous release of adherent fibrotic tissue subcutaneous level SURGEON: Claudio Cox MD CHIEF COMPLAINT: Post-op visit s/p hip arthroscopy HISTORY OF PRESENT ILLNESS Jigna Espinoza a 74 y.o. female is contacted for a telehealth visit infollow-up after undergoing a right lateral hip arthroscopy. She is having quite a bit of pain and swelling along the lateral hip and thigh into the knee. She is having difficulty sleeping and usually uses a pillow between her knees. The greatest pain is aftershe sits for a period of time. She [...] to get tired with walking. She has only been wearing flip flops or is barefoot in her home. Pain Medications: Celebrex 200 mg once daily. Tylenol 1300 mg twice daily. Post-op DVT Prophylaxis: Aspirin 81 mg once daily. Physical Therapy: Light home exercises. Outpatient PT starts tomorrow at [facility]. X-rays were not obtained during today's office visit. REVIEW OF SYMPTOMS: Constitutional: Denies fever, chills, fatigue Cardiovascular: Denies chest pain Respiratory: Denies shortness of breath Gastrointestinal: Denies nausea, vomiting, diarrhea, constipation or abdominal pain Neurovascular: Denies numbness or tingling Musculoskeletal: Admits mild postop lateral hip and thigh pain, mild swelling lateral hip and thigh, limitation of range of motion due to stiffness and pain Psychiatric: Mood and affect appropriate PHYSICAL EXAM via telephone discussion: General: alert, oriented, and in no acute distress Hip Exam via telehealth discussion: The patient reports her surgical incisions are well healed and benign in appearance, no ecchymosis,no erythema, generalized swelling over the lateral hip and thigh. She states her lateral hip and thigh are very tender to the touch and she states her ROM is limited by pain and stiffness. She reports normal sensation to light touch, good foot perfusion. ASSESSMENT/PLAN: Jigna Espinoza is a 74 y.o. female is contacted for a telehealth visit in follow-up s/p Right hiparthroscopic debridement of adherent fibrotic tissue at level of greater trochanteric bursa, arthroscopic release of incarcerated iliotibial band from adherent fibrotic tissue, percutaneous release of adherent fibrotic tissue subcutaneous level performed on 01/23/[address] Cox. The patient is frustrated by the developing pain and persistent swelling since surgery. She is scheduled to start physical therapy tomorrow. Weight bearing as tolerated. Use of a cane until strength/balance improve. Avoid limping, encouraged use of a cane as she gets tired. Strongly encouraged wearing supportive sneakers for all daily activities an avoid flip flops and walking barefoot at this time. Physical therapy to focus on edema reduction, pain management, scar tissue prevention, hip range ofmotion to tolerance and guided progression with strengthening exercises (especially gluteals). Recommend icing, rest, and elevation above the level of the heart. Use of Tylenol 500 mg every 4 hours or 1000 mg orally every 8 hours or 1300 mg BID as needed for postoperative pain. Do not take more than 3000 mg of Tylenol from all sources in a 24-hour. Use of Celebrex 200 mg once daily with food for postoperative pain and inflammation. Use of OTC Voltaren gel topically on the lateral hip. Prescribed a Medrol dose shari to reduce localized pain and inflammation. Avoid use of NSAIDS with this medication and then resume the Celebrex once the rx is complete. Consider use of a hip spica wrap or SI joint belt for support of the hip and compression to reduce localized hip inflammation. Plan to follow-up at 4 weeks postop. Please call the office if you have any questions or concerns prior to your next follow-up visit. Patient verbally consents to this telehealth visit and understands that this visit may be billed, similar to a clinic office visit. I provided care to the patient today via telehealth telephone encounter. The total time associated with this visit was 20 minutes. documented in this encounter Plan of Treatment Not on file documented as of this encounter Visit Diagnoses Diagnosis S/P hip arthroscopy; right greater troch bursectomy; 01/23/2020; Dr. Cox documented in this encounter Care Teams Park Guard Relationship Specialty Start Date End Date Ritu Bolaños APRN [address] [place] [address] PCP - General 05/07/15 02/03/22 documented as of this encounter
--- OUTSIDE RECORDS SUMMARY | 2024-04-12 15:15 | XMS_ITS | Encounter Summary ---
Author Organization [facility] [place] [address] Care Team Providers Care Pbx Manager Name Role Phone Ritu Bolaños APRN Primary Care Provider +1- [phone] Encounter Details Date Type Department Care Team (Late st Contact Info) Description 06/22/2019 Telephone Orthopaedics at [facility] [address] [place] [address] [place] [phone] Eric Soto MD [address] [place] [address] Social History Tobacco Use Types Packs/Day Years [...] on filedocumented in this encounter Care Teams Pbx Manager Relationship Specialty Start Date End Date Ritu Bolaños APRN [address] [place] [phone] PCP - General 05/07/15 02/03/22 documented as of this encounter
--- OUTSIDE RECORDS SUMMARY | 2024-04-12 15:15 | XMS_ITS | Encounter Summary ---
Author Organization [facility] [place] [address] Care Team Providers Care Garnishment Specialist Name Role Phone Ritu Bolaños RAEANN Primary Care Provider +1- [phone] Encounter Details Date Type Department Care Team (Late st Contact Info) Description 01/15/2020 Telephone Orthopaedics at [facility] [address] [place] [phone] Regla Cox PA [address] [place] [address] Social History Tobacco Use Types Packs/Day Years [...] encounter Miscellaneous Notes * Telephone Encounter - Regla Cox PA - 01/15/2020 10:56 AM EDT Per our telephone conversation today, 01/15/2020, Jigna would like to proceed with her previouslyscheduled right hip arthroscopic greater trochanter bursectomy with IT band release that had been previously cancelled due to the coronavirus pandemic. She continues to have snapping hip pain that she is trying to push through. Due to the lateral hip pain and snapping she will have weakness/fatigue and can feel off balance. She is using a cane for walking activities outside the home. She started walking outside about 1 1/2 weeks ago. documented in this encounter Plan of Treatment Not on file documented as of this encounter Visit Diagnoses Not on filedocumented in this encounter Care Teams Garnishment Specialist Relationship Specialty Start Date End Date Ritu Bolaños APRN [address] [place] [address] PCP - General 05/07/15 02/03/22 documented as of this encounter
--- OUTSIDE RECORDS SUMMARY | 2024-04-12 15:15 | XMS_ITS | Encounter Summary ---
Author Organization [facility] [place] [address] Care Team Providers Care Capital Equipment Specialist Name Role Phone Ritu Bolaños APRN Primary Care Provider +1- [phone] Encounter Details Date Type Department Care Team (Latest Contact Info) Description 12/11/2020 10:00 AM EDT TH Visit (TeleHealth) Sports Medicine at [facility] [address] [facility] [place] [address] Roberto Carlos Aguilar MD [address] [facility] [place] [address] Chronic right hip pain (Primary Dx) Social History Tobacco Use Types Packs/Day Years [...] as of this encounter Progress Notes * Roberto Carlos Aguilar MD - 12/11/2020 10:00 AM EDT CC - Right lateral hip pain HPI -this is a telemedicine telephone follow-up visit for the above issue. I performed ultrasound-guided trochanteric bursal cortisone injection on this patient on 10/02/2020. She reports that she hadcomplete resolution of pain with ability to walk without limping or pain for 3 days. After 3 days pain gradually returned to previous levels over the next 2 weeks and is now as bad or worse than ever. She has pain with weightbearing and cannot exercise without increasing pain significantly. She hasdifficulty getting comfortable at night. Rising from a chair is uncomfortable with pain localizing to the lateral right hip without radiation of pain numbness or tingling into the groin, down the leg or into the foot. She has no numbness or tingling. She had no side effects from her injection. She is frustrated by her lack of progress. A previous note is copied below for review: Jigna Espinoza is a 75 y.o. female who presents with a 2 year history of Right lateral hip pain. She presents today at the request of Gwendolyn Cox of [facility] orthopedics. She has had pain at the greater trochanteric region of her right hip prior to and ever since abductor surgical repair performedby Dr. Cox in May 2017. She had another lateral hip arthroscopy with Dr. Cox in January 2020.She felt better for a while but her lateral hip and thigh is again bothering her with pain and weakness. She has a Trendelenburg gait and feels better when she is in the Trendelenburg position. She feels unstable when she has her weight on her right foot. She took a fall in May and fractured her right humeral head. She was treated nonsurgically for her right shoulder fracture. She is tryingto be active and just completed physical therapy for her shoulder. She tries to do her home exercises for gluteal strengthening and is frustrated by lack of progress. She continues to take Celebrex once per day. She denies any numbness or tingling down the legs and denies saddle anesthesia, denies incontinence of bowel or bladder. Physical exam: [...] in 2016 and hip replacement surgery in 2019. Repeat Right hip arthroscopic January 2020 for [...] Gluteus medius and trochanteric bursa identified using SigmatixP9 ultrasound with low-frequency curvilinear probe. After sterile [...] the next 72 hours. Showers are okay Return to note of today (12/11/2020): Assessment: Chronic right hip pain status post right hip arthroplasty in June 2019, abductor surgical repair in May 2017 and hip arthroscopy/debridement of seroma in May 2020. Temporary benefit from trochanteric bursal cortisone injection in September as described above. Plan: I discussed with Dr. Cox and Gwendolyn Cox, the surgical team who performed the 3 surgeries described above in this patient. We decided together to proceed with MRI of the hip to evaluate for new injury, recurrence of gluteal tendon tear, other intra versus extra-articular process. In theinterim continue with nonprovocative, minimally provocative activities as able and tolerated. Continue with Celebrex and as needed Tylenol documented in this encounter Plan of Treatment Not on file documented as of this encounter Visit Diagnoses Diagnosis Chronic right hip pain- Primary Pain in joint, pelvic region and thigh documented in this encounter Care Teams Capital Equipment Specialist Relationship Specialty Start Date End Date Ritu Bolaños APRN [address] [place] [address] PCP - General 05/07/15 02/03/22 documented as of this encounter
--- OUTSIDE RECORDS SUMMARY | 2024-04-12 15:15 | XMS_ITS | Encounter Summary ---
Author Organization [facility] [place] [address] Care Team Providers Care Highway Truck Driver Name Role Phone Ritu Bolaños APRN Primary Care Provider +1- [phone] Reason for Referral * Physical Therapy (Routine) - Closed Specialty Diagnoses / Procedures Referred By Lennox t Referred To Contact Physical Therapy Diagnoses Status post total replacement of right hip Edema of lower extremity Right thigh pain Regla Cox PA [address] [place] [address] Physical Therapy, [facility] [address] [place] [id number] Referral ID Status Reason Start Date Expiration Date V isits Requested Visits Authorized [id number] Closed Evaluate and Treat 07/06/2019 01/02/2020 12 12 Reason for Visit * Reason Comments Follow Up Surgery right THR Encounter Details Date Type Department Care Team (Late st Contact Info) Description 07/06/2019 10:00 AM EDT Office Visit Orthopaedics at [facility] [address] [place] [address] Eric Soto MD [address] [place] [address] Regla Cox PA [address] [place] [address] Status post total replacement of right hip; Edema of lower extremity; Right thigh pain Social History Tobacco Use Types Packs/Day [...] Sign Reading Time Taken Comments Blood Pressure - - Pulse - - Temperature 36.7 ??C (98.1 ??F) 07/06/2019 9:35 AM ED T Respiratory Rate - - Oxygen Saturation - - Inhaled Oxygen Concentration - - Weight - - Height - - Body Mass Index - - documented in this encounter Progress Notes * Regla Cox PA - 07/06/2019 10:00 AM EDT PATIENT NAME: Jigna Espinoza AGE: 74 y.o. MR#: [id number] DATE OF VISIT: 07/06/2019 DATE OF SURGICAL PROCEDURE: 06/19/2019 SURGICAL PROCEDURE PERFORMED: Right Total Hip Arthroplasty, direct anterior approach SURGEON: Eric Soto MD CHIEF COMPLAINT: Post-op visit s/p hip replacement HISTORY OF PRESENT ILLNESS Jigna Espinoza a 74 y.o. female comes into clinic today for follow-up after undergoing a right total hip replacement. Her post-op recovery was complicated by suspected hemorrhagic shock in the setting of postoperative hematomas. She was transferred to for acute management, where she was transfused 2 units PRBC's, monitored, and discharged home on 06/21/2019. She is recovering slower than expected from surgery due to the post-op complications and significant persistent swelling in the right lower extremity. She is recovering at home, icing frequently, andwalking short distances to tolerance. The patient is partial to full weight bearing with use of a front wheeled walker for assistance. She has tried using a cane in the house but is having difficultywith the amount of swelling, stiffness and pain in her leg. Pain Medications: Tylenol 500 mg every 4-6 hours, Celebrex 200 mg once daily, and OxyCodone 5 mg occasionally. She was started on Gabapentin 300 mg at bedtime yesterday. Post-op DVT Prophylaxis: Aspirin was the planned anticoagulant, but due to the post-op bleeding, she was advised not to continue at time of discharge from [facility] She has not been anti-coagulated following surgery. Physical Therapy: patient had declined PT services at time of discharge, but is not opposed to starting therapy. Leg Length Discrepancy: The patient denies concerns for a leg length discrepancy. X-rays were obtained during today's office visit. Labs were obtained during today's office visit. REVIEW OF SYMPTOMS: Constitutional: Denies fever, chills, fatigue Cardiovascular: Denies chest pain Respiratory: Denies shortness of breath Gastrointestinal: Denies nausea, vomiting, diarrhea, constipation or abdominal pain Neurovascular: Denies numbness or tingling Musculoskeletal: Hans hip joint pain, Admits thigh, posterolateral knee, and calf pain and swelling, limitation of range of motion due to the pain associated with the swelling Psychiatric: Mood and affect appropriate PHYSICAL EXAM: Temperature 36.7 ??C (98.1 ??F), temperature source Temporal. General: alert, oriented, and in no acute distress Hip Exam: Inspection: surgical incision healing well and benign in appearance, mild scattered ecchymosis, no erythema, moderate to severe post-op swelling with soft tissue fullness/tightness along the proximalanterior and lateral thigh, along the IT Band, and calf Palpation: very tender to palpation of anterior and lateral thigh, IT Band, posterior and lateral knee, and very tender to palpation of calf into the ankle, no mass or defect ROM: tolerates hip flexion to 100 degrees, internal rotation to 15 degrees, and external rotation to 15 degrees, great difficulty with knee ROM due to stiffness/swelling pain (0-60 degrees with assistance) Strength: can maintain strength to light isometrics of hip/knee, PF/DF 5/5 Orthopedic testing: Eliecer's sign negative Neurovascular: Normal sensation to light touch along lower extremity nerve distributions. DP and PTpulses are 2+ and equal bilaterally with good foot perfusion. Imaging: ?? Pelvis and Right Hip, performed 07/06/2019: Femoral and acetabular prosthetic components in stable alignment with no signs of fracture or prosthetic loosening ?? Right LE Doppler, performed 07/06/19: Negative for DVT Labs: Last 3 wbc, hgb, hct plt Recent Labs 07/06/19 1545 07/06/19 1315 06/21/19 0850 06/21/19 0248 WBC 4.2 -- 6.1 5.4 HGB 9.6* 9.5* 7.7* 7.3* HCT 30.4* 30.4* 22.0* 20.1* PLATELET 430* -- 159 135* Last 3 Lytes Recent Labs 07/06/19 1315 06/21/19 0248 06/20/19 0040 NA 139 135 134* K 4.0 3.6 3.8 CL 100 101 101 CO2 28 26 22 BUN 13 11 17 CREATININE 0.66* 0.64* 0.64* ASSESSMENT/PLAN: Jigna Espinoza is a 74 y.o. female who presents to the clinic in follow-up s/p right total hip arthroplasty, direct anterior approach, performed on 06/19/[address] Soto. The patient's post-op recovery was complicated by suspected hemorrhagic shock in the setting of postoperative hematomas. She now has persistent lower extremity swelling/edema from the thigh to the ankle. She feels the swelling has improved but it continues to impede her walking, range of motion, sleep, and ability to perform daily activities. Xrays, labs, and a doppler US study was obtained during todays visit and all results were quite reassuring. Her Hgb has improved from 7.7 to 9.6 in the past 2 weeks. The doppler was negative for a DVT and the xrays show stable alignment of the right JACQUIE without complication. On examination, she tolerates hip ROM without pain, and the greatest concern is associated with the tight soft tissue swelling the length of the right LE. Referral to physical therapy to focus on edema reduction, pain management, scar tissue prevention, and hip/knee/ankle range of motion to tolerance. Introduction of strengthening exercises to tolerance. Encouraged soft tissue massage. Rest, ice, and elevation above the level of the heart after activities. Moist heat to LE and massage daily. Perform ankle pumps and heel slides. Max lifting of 10 lbs for the first month post-op, 20 lbs the second and third month post-op, then increase to tolerance. Use of an assistive device for safety with ambulation until strength and balance improve. No dental work for 6 months post-op. Prior to your first dental appointment please call the office to determine if you will require antibiotics for dental cleanings/procedures. Use of Tylenol 500 mg every 4 hours or 1000 mg orally every 8 hours as needed for postoperative pain. Do not take more than 3000 mg of Tylenol from all sources in a 24-hour. Use of Celebrex 200 mg once daily with food as needed for postoperative pain and inflammation. Use of pain medication as needed for postoperative pain and taper from use as your pain decreases. You have been prescribed OxyCodone. Take 1 tablet every 8- 12 hours as needed for postoperative pain. At this point, we will not return to use of Aspirin. The patient understands to call the office with concerns of increased low leg swelling, redness, or pain, and a repeat doppler would be obtained. Pain medications can be constipating please take stool softeners and laxatives if needed. Use of Senokot twice daily and MiraLAX once daily is recommended as needed. Dr. Soto was present for the evaluation and he agrees with the plan of care. Plan to follow-up at 4 weeks postop with x-rays. Please call the office if you have any questions or concerns prior to your next follow-up visit. documented in this encounter Plan of Treatment Scheduled Referrals Name Type Priority Associated Diagnoses Orde r Schedule Referral to Physical Therapy Outpatient Referral Routine Status post total replacement of right hip Edema of lower extremity Right thigh pain Ordered: 07/06/2019 documented as of this encounter Procedures Procedure Name Priority Date/Time Associated Diagnosis Comments HEMOGRAM Routine 07/06/2019 3:45 PM EDT DIFFERENTIAL, AUTOMATED Routine 07/06/2019 3:45 PM EDT HC CBC,PLT & AUTO DIFF Routine 07/06/2019 3:45 PM EDT documented in this encounter Results * Differential, Automated (07/06/2019 3:45 PM EDT) Neutrophils % 56.6 % [facility] Neutr Abs (ANC) 2.36 1.70 - 6.10 x10(3)/mcL [facility] Lymphocytes % 25.4 % [facility] Lymphocytes Abs 1.1 0.9 - 3.2 x10(3)/mcL [facility] Monocytes % 10.1 % [facility] Monocyte Abs 0.4 0.3 - 0.9 x10(3)/[facility] Eosinophils % 6.7 % [facility] Eosinophils Abs 0.3 0.0 - 0.4 x10(3)/[facility] Basophils % 1.2 % [facility] Basophils Abs 0.0 0.0 - 0.1 x10(3)/[facility] Immature Gran % 0.00 % [facility] Comment: Immature granulocytes(IG's)percentage and absolute count will include metamyelocytes, myelocytes, and promyelocytes. Blood smears from CBCs yielding IG's will be scanned manually for concordance. If this scan disagrees with the automated IG or if promyelocytes are noted, a manual differential will be performed. Estefany Gran Abs 0.00 0.00 - 0.04 x10(3)/[facility] Blood specimen (specimen) 07/06/2019 3:45 PM EDT 07/06/2019 3:45 PM EDT Narrative Resulting Agency Comment Spec In Lab / APD Regla Dejesus [facility] [address] [place] [address] * (ABNORMAL) Hemogram (07/06/2019 3:45 PM EDT) WBC 4.2 4.0 - 9.5 x10(3)/[facility] RBC 3.04(L) 4.00 - 5.21 x10(6)/[facility] Hemoglobin 9.6(L) 11.7 - 15.5 gm/dL [facility] Hematocrit 30.4(L) 35.7 - 45.8 % [facility] MCV 100.0(H) 82.6 - 94.4 fL [facility] Comment: This result has been called to PORSCHE RUIZ by Stephanie Rai on 07 06 2019 at 1615, and has been read back. MCH 31.6 27.1 - 32.0 pg [facility] MCHC 31.6(L) 31.7 - 35.0 gm/dL [facility] Platelets 430(H) 145 - 357 x10(3)/mcL [facility] RDWSD 59.9(H) 37.0 - 46.0 fL [facility] RDWCV 16.0(H) 11.5 - 14.1 % [facility] MPV 9.3 7.6 - 12.9 fL [facility] Blood specimen (specimen) 07/06/2019 3:45 PM EDT 07/06/2019 3:45 PM EDT Narrative Resulting Agency Comment Spec In Lab / APD Regla Dejesus [facility] [address] [place] [address] * (ABNORMAL) Comprehensive metabolic panel (non-fasting) (07/06/2019 1:15 PM EDT) Glucose Lvl 98 65 - 199 mg/dL [facility] Comment:Diabetes: >=200 mg/d L plus symptoms BUN 13 8 - 18 mg/dL [facility] Creatinine 0.66(L) 0.70 - 1.20 mg/dL [facility] Sodium 139 135 - 145 mmol/L [facility] Potassium 4.0 3.5 - 5.0 mmol/L [facility] Comment: Please note: ??Patients with WBC >100,000 may have falsely elevated Potassium levels. ??For accurate Potassium quantification in these patients send serum separator tube (gold top) for subsequent determinations. ??Contact the Clinical Chemistry Laboratory if there are any questions. Chloride 100 98 - 107 mmol/L [facility] CO2 28 22 - 31 mmol/L [facility] Anion Gap 12 5 - 15 mmol/L [facility] Calcium 9.8 8.5 - 10.5 mg/dL [facility] Total Protein 6.9 6.1 - 8.0 gm/dL [facility] Albumin 4.0 3.2 - 5.2 gm/dL [facility] AST 33(H) 0 - 30 unit/L [facility] ALT 22 0 - 30 unit/L [facility] Alk Phos 79 35 - 105 unit/L [facility] Total Bilirubin 0.6 0.2 - 1.3 mg/dL [facility] Estimated GFR 86 >=60 mL/min/1. 73 m?? [facility] Comment: The eGFR was calculated using the CKD-EPI equation. As with all creatinine based estimates of kidney function, eGFR values calculated with the CKD-EPI equation are not accurate in patients with acute kidney failure, extremes of body mass or the acutely ill. http://[employer]/[facility] eGFR 100 >=60 mL/min/1. 73 m?? [facility] Comment: The eGFR was calculated using the CKD-EPI equation. As with all creatinine based estimates of kidney function, eGFR values calculated with the CKD-EPI equation are not accurate in patients with acute kidney failure, extremes of body mass or the acutely ill. http://[employer]/[facility] Blood specimen (specimen) 07/06/2019 1:15 PM EDT 07/06/2019 1:16 PM EDT Narrative Resulting Agency Comment Spec In Lab / APD Eric Soto MD CHEMISTRY ORDERABLES Performing Organization Address City/State/[facility] Co de Phone Number LABORATORY [address] [place] [address] * DVT Lower Extremity Limited Right (07/06/2019 10:59 [...] this report, please contact the number below. Eric Soto MD IMG US GEN ORDERABLE S documented in this encounter Visit Diagnoses Diagnosis Status post total replacement of right hip Edema of lower extremity Edema Right thigh pain Pain in limb Status post total replacement of right hip documented in this encounter Care Teams Highway Truck Driver Relationship Specialty Start Date End Date Ritu Bolaños APRN [address] [place] [address] PCP - General 05/07/15 02/03/22 documented as of this encounter
--- OUTSIDE RECORDS SUMMARY | 2024-04-12 15:15 | XMS_ITS | Encounter Summary ---
Author Organization [facility] [place] [address] Care Team Providers Care Outdoor Adventure Guides Name Role Phone Ritu Bolaños RAEANN Primary Care Provider +1- [phone] Reason for Visit * Reason Onset Date Comments Medication Refill 02/01/2020 Encounter Details Date Type Department Care Team (Late st Contact Info) Description 02/01/2020 Refill Orthopaedics at [facility] [address] [place] [address] Regla Cox PA [address] [place] [address] Social History Tobacco Use Types Packs/Day Years [...] encounter Miscellaneous Notes * Telephone Encounter - Fátima Aldana LNA - 02/01/2020 9:18 AM EDT Jigna would like a refill of her vicodin. She is s/p troch bursectomy and IT band release on 01/23/20. Jigna was taking 1 tab qd but feels like she is in a lot more pain recently and has been taking up to 3 tabs per day. documented in this encounter Plan of Treatment Not on file documented as of this encounter Visit Diagnoses Not on filedocumented in this encounter Care Teams Outdoor Adventure Guides Relationship Specialty Start Date End Date Ritu Bolaños APRN [address] [place] [address] PCP - General 05/07/15 02/03/22 documented as of this encounter
--- OUTSIDE RECORDS SUMMARY | 2024-04-12 15:15 | XMS_ITS | Encounter Summary ---
Author Organization [facility] [place] [address] Care Team Providers Care Passenger Solicitor Name Role Phone Ritu Bolaños APRN Primary Care Provider +1- [phone] Encounter Details Date Type Department Care Team (Late st Contact Info) Description 07/10/2019 Orders Only Orthopaedics at [facility] [address] [address] Eric Soto MD [address] [place] [address] Status post total replacement of right hip (Primary Dx) Social History Tobacco Use Types [...] Diagnosis Status post total replacement of right hip- Primary documented in this encounter Care Teams Passenger Solicitor Relationship Specialty Start Date End Date Ritu Bolaños APRN [address] [place] [id number] PCP - General 05/07/15 02/03/22 documented as of this encounter
--- OUTSIDE RECORDS SUMMARY | 2024-04-12 15:15 | XMS_ITS | Encounter Summary ---
[place] [address] Care Team Providers Care Clinical Trials Systems Administrator Name Role Phone Ritu Bolaños APRN Primary Care Provider +1- [phone] Encounter Details Date Type Department Care Team (Latest Contact Info) Description 03/24/2020 11:00 AM EDT Ancillary Procedure Radiology XRay at [facility] at [facility] [address] [place] [address] Claudio Cox MD [address] [place] [address] S/P hip arthroscopy; right greater troch bursectomy; [...] Date/Time Associated Diagnosis Comments XR PELVIS AND HIP 2 VIEWS RIGHT Routine 03/24/2020 11:07 AM EDT S/P hip arthroscopy; right greater troch bursectomy; 01/23/2020; Dr. Cox documented in this encounter Results * XR Pelvis and [...] contact the number below. ? Narrative 03/24/2020 11:22 AM EDT EXAMINATION: XR [...] Cox documented in this encounter Care Teams Clinical Trials Systems Administrator Relationship Specialty Start Date End Date Ritu Bolaños APRN [address] [place] [address] PCP - General 05/07/15 02/03/22 documented as of this encounter
--- OUTSIDE RECORDS SUMMARY | 2024-04-12 15:15 | XMS_ITS | Encounter Summary ---
Author Organization [facility] [place] [address] Care Team Providers Care Tile Grinder Name Role Phone Ritu Bolaños APRN Primary Care Provider +1- [phone] Encounter Details Date Type Department Care Team ([facility] st Contact Info) Description 11/28/2019 12:45 PM EDT Telephone Pre-Admission Testing at [facility] [place] [address] Social History Tobacco Use Types Packs/Day Years [...] on filedocumented in this encounter Care Teams Tile Grinder Relationship Specialty Start Date End Date Ritu Bolaños APRN [address] [place] [address] PCP - General 05/07/15 02/03/22 documented as of this encounter
--- OUTSIDE RECORDS SUMMARY | 2024-04-12 15:15 | XMS_ITS | Encounter Summary ---
Author Organization [facility] [place] [address] Care Team Providers Care Frame Assembler Name Role Phone Ritu Bolaños RAEANN Primary Care Provider +1- [phone] Encounter Details Date Type Department Care Team (Late st Contact Info) Description 07/03/2019 Telephone Orthopaedics at [facility] [employer] [id number] Eric Soto MD [address] [place] [address] Social History Tobacco Use Types Packs/Day Years [...] encounter Miscellaneous Notes * Telephone Encounter - Elizabeth Holguin RN - 07/03/2019 4:05 PM EDT Patient is s/p rt thr on 06/19/19. She calls today upset/tearful on the phone as she states she has constant throbbing and inflammation. She can't sleep. She just recently got her oxycodone filled again and doesn't feel it does much. She is able to bear weight. I told her this all sounds like normal post op symptoms to me. She is icing and elevating. She did not get VNA services as she went to ICU immediately post op and was discharged from there. Patient wanted to be seen sooner than her post op appt at the end of the month. I was able to get her in this Tuesday with Gwendolyn. documented in this encounter Plan of Treatment Not on file documented as of this encounter Visit Diagnoses Not on filedocumented in this encounter Care Teams Frame Assembler Relationship Specialty Start Date End Date Ritu Bolaños APRN [address] [place] [address] PCP - General 05/07/15 02/03/22 documented as of this encounter
--- OUTSIDE RECORDS SUMMARY | 2024-04-12 15:15 | XMS_ITS | Encounter Summary ---
Author Organization [facility] Address [facility] [place] [address] Care Team Providers Care Livestock Nutritionist Name Role Phone Ritu Bolaños RAEANN Primary Care Provider +1- [phone] Encounter Details Date Type Department Care Team (Latest Contact Info) Description 07/06/2019 11:15 AM EDT Laboratory Appointment Laboratory at [facility] [address] [place] [address] Anemia, unspecified type; Status post total replacement of right hip [...] Procedure Name Priority Date/Time Associated Diagnosis Comments HC HEMOGLOBIN, BLOOD Routine 07/06/2019 1:15 PM EDT Anemia, unspecified type COMPREHENSIVE METABOLIC PANEL (NON-FASTING) Routine 07/06/2019 1:15 PM EDT Status post total replacement of right hip documented in this encounter Results * (ABNORMAL) Comprehensive metabolic panel (non-fasting) (07/06/2019 1:15 PM EDT) Glucose Lvl 98 65 - 199 mg/dL [facility] Comment:Diabetes: >=200 mg/d L plus symptoms BUN 13 8 - 18 mg/dL [facility] Creatinine 0.66(L) 0.70 - 1.20 mg/dL [facility] Sodium 139 135 - 145 mmol/L [facility] Potassium 4.0 3.5 - 5.0 mmol/L [facility] Comment: Please note: ??Patients with WBC >100,000 may have falsely elevated Potassium levels. ??For accurate Potassium quantification in these patients send serum separator tube (gold top) for subsequent determinations. ??Contact the Clinical Chemistry Laboratory if there are any questions. Chloride 100 98 - 107 mmol/L [facility] CO2 28 22 - 31 mmol/L [facility] Anion Gap 12 5 - 15 mmol/L [facility] Calcium 9.8 8.5 - 10.5 mg/dL [facility] Total Protein 6.9 6.1 - 8.0 [...] of body mass or the acutely ill. http://[employer]/[facility] eGFR 100 >=60 mL/min/1. 73 m?? [facility] Comment: The eGFR was calculated using the CKD-EPI equation. As with all creatinine based estimates of kidney function, eGFR values calculated with the CKD-EPI equation are not accurate in patients with acute kidney failure, extremes of body mass or the acutely ill. http://[employer]/[facility] Blood specimen (specimen) 07/06/2019 1:15 PM EDT 07/06/2019 1:16 PM EDT Narrative Resulting Agency Comment Spec In Lab / APD Eric Soto MD CHEMISTRY ORDERABLES Performing Organization Address [facility] Co de Phone Number [facility] [address] [place] [address] * (ABNORMAL) Hemoglobin and Hematocrit, blood (07/06/2019 1:15 PM EDT) Hemoglobin 9.5(L) 11.7 - 15.5 gm/dL [facility] Hematocrit 30.4(L) 35.7 - 45.8 % [facility] Blood specimen (specimen) 07/06/2019 1:15 PM EDT 07/06/2019 1:15 PM EDT Narrative Resulting Agency Comment Spec In Lab / APD Diana Grubbs MD HEMATOLOGY ORDERAB LES Performing Organization Address [facility] Co de Phone Number [facility] [address] [place] [address] documented in this encounter Visit Diagnoses Diagnosis Anemia, unspecified type Status post total replacement of right hip documented in this encounter Care Teams Livestock Nutritionist Relationship Specialty Start Date End Date Ritu Bolaños APRN [address] [place] [address] PCP - General 05/07/15 02/03/22 documented as of this encounter
--- OUTSIDE RECORDS SUMMARY | 2024-04-12 15:15 | XMS_ITS | Encounter Summary ---
Author Organization [facility] [address] Care Team Providers Care Welfare Adviser Name Role Phone Ritu Bolaños APRN Primary Care Provider [phone]- [phone] Reason for Referral * Consultation (Routine) - Closed Specialty Diagnoses / Procedures Referred By Lennox jaramillo Referred To Contact Sports Medicine Diagnoses Pain in left hip Presence of left artificial hip joint Christiana Gaspar PA [address] [place] [address] Roberto Carlos Aguilar MD [address] [facility] [place] [address] Referral ID Status Reason Start Date Expiration Date V isits Requested Visits Authorized [id number] Closed Consult, Test & Treat 10/10/2019 10/09/2020 1 1 Encounter Details Date Type Department Care Team (Late st Contact Info) Description 10/10/2019 Orders Only Orthopaedics at [facility] [address] [place] [address] Christiana Gaspar PA [address] [place] [address] Pain in left hip (Primary Dx); Presence of left artificial hip joint Social History Tobacco Use [...] Referral to Sports Medicine Outpatient Referral Routine Pain in left hip Presence of left artificial hip joint Ordered: 10/10/2019 documented as of this encounter Visit Diagnoses Diagnosis Pain in left hip- Primary Pain in joint, pelvic region and thigh Presence of left artificial hip joint Hip joint replacement by other means documented in this encounter Care Teams Welfare Adviser Relationship Specialty Start Date End Date Ritu Bolaños APRN [address] [place] [address] PCP - General 05/07/15 02/03/22 documented as of this encounter
--- OUTSIDE RECORDS SUMMARY | 2024-04-12 15:15 | XMS_ITS | Encounter Summary ---
Author Organization [facility] [place] [address] Care Team Providers Care Elevator Repairer Apprentice Name Role Phone Ritu Bolaños APRN Primary Care Provider [phone]- [phone] Reason for Referral * Physical Therapy (Routine) - Closed Specialty Diagnoses / Procedures Referred By Lennox jaramillo Referred To Contact Physical Therapy Diagnoses S/P hip arthroscopy Regla Cox PA [address] [place] [address] Physical Therapy, [facility] [address] [place] [id number] Referral ID Status Reason Start Date Expiration Date V isits Requested Visits Authorized [id number] Closed Evaluate and Treat 01/25/2020 07/23/2020 12 12 Encounter Details Date Type Department Care Team (Latest Contact Info) Description 01/25/2020 10:00 AM EDT TH Visit (TeleHealth) Orthopaedics at [facility] [address] [place] [address] Regla Cox PA [address] [place] [address] S/P hip arthroscopy; right greater troch bursectomy; [...] Progress Notes * Regla Cox PA - 01/25/2020 10:00 AM EDT PATIENT NAME: Jigna Espinoza AGE: 74 y.o. MR#: [id number] DATE OF TELEHEALTH VISIT: 01/25/2020 DATE OF SURGICAL PROCEDURE: 01/23/2020 SURGICAL PROCEDURE [...] a right lateral hip arthroscopy. She is recovering as expected from surgery. She is recovering at home, icing frequently, and increasing activity level to tolerance. The patient is full weight bearing with use of a standard walker and straight cane for assistance. Pain Medications: Hydrocodone/Acetaminophen 5-325 mg every 6 hours, Zofran 4 mg OTD about 30 minutes prior to the pain med. Celebrex 200 mg once daily. Post-op DVT Prophylaxis: Aspirin 81 mg once daily. Physical Therapy: Light home exercises. X-rays were not obtained during today's office visit. REVIEW OF SYMPTOMS: Constitutional: Denies fever, chills, fatigue Cardiovascular: Denies chest pain Respiratory: Denies shortness of breath Gastrointestinal: Denies nausea, vomiting, diarrhea, constipation or abdominal pain Neurovascular: Denies numbness or tingling Musculoskeletal: Admits mild postop lateral hip pain, mild swelling lateral hip and thigh, limitation of range of motion due to stiffness Psychiatric: Mood and affect appropriate PHYSICAL EXAM via telephone discussion: There were no vitals taken for this visit. General: alert, oriented, and in no acute distress Hip Exam: Inspection: surgical incision healing well and benign in appearance, patient and removed post-op bandages without complication, mild localized ecchymosis, no erythema, mild generalized post-op swelling over the lateral hip and thigh Palpation: Generalized tenderness to palpation of lateral hip ROM: Hip range of motion limited by stiffness Strength: not tested, patient can easily get up from a seated position (getting off toilet is a little more difficult) and she is walking around the house frequently Orthopedic testing: Not performed Neurovascular: Normal sensation to light touch, good foot perfusion. [...] 01/23/[address] Cox. The patient is doing well with her post-op recovery and has no concerns. Remove silverlon bandaids in 5 days. Steri-strips to remain intact for 3 weeks post-op and then maybe gentle removed. No soaking/bathing. May shower after 3 days post-op. Weight bearing as tolerated. Use of a walker or cane until strength/balance improve. Physical therapy to begin around 4 weeks post-op to focus on edema reduction, pain management, scartissue prevention, hip range of motion to tolerance and guided progression with strengthening exercises (especially gluteals). Recommend icing, rest, and elevation above the level of the heart. Max lifting of 10 lbs for the first 2 months post-op, 20 lbs the third month post-op, then increaseto tolerance. Use of an assistive device for safety with ambulation until strength and balance improve. Use of Tylenol 500 mg every 4 [...] your pain decreases. You have been prescribed Hydrocodone-Acetaminophen. Take 1 tablet every 6 hours as needed for postoperative pain. Use of Zofran 15-30 minutes before taking medication if needed. Pain medications can be constipating please take stool softeners and laxatives if needed. Use of Senokot twice daily and MiraLAX once daily is recommended as needed. Plan to follow-up at 4 weeks postop. [...] Referral to Physical Therapy Outpatient Referral Routine S/P hip arthroscopy; right greater troch bursectomy; 01/23/2020; Dr. Cox Ordered: 01/25/2020 documented as of this encounter Visit Diagnoses Diagnosis S/P hip arthroscopy; right greater troch bursectomy; 01/23/2020; Dr. Cox documented in this encounter Care Teams Elevator Repairer Apprentice Relationship Specialty Start Date End Date Ritu Bolaños APRN [address] [place] [address] PCP - General 05/07/15 02/03/22 documented as of this encounter
--- OUTSIDE RECORDS SUMMARY | 2024-04-12 15:15 | XMS_ITS | Encounter Summary ---
Author Organization [facility] [place] [address] Care Team Providers Care Home Health Assistant Name Role Phone Ritu Bolaños APRN Primary Care Provider [phone]- [phone] Reason for Referral * Physical Therapy (Routine) - Duplicate Referral Specialty Diagnoses / Procedures Referred By Contac t Referred To Contact Physical Therapy Diagnoses Status post total hip replacement, right Iliotibial band syndrome, right Pain in right hip Trochanteric bursitis of right hip Claudoi Cox MD [address] [place] [address] Physical Therapy, [address] [address] Referral ID Status Reason Start Date Expiration Date Visits Requested Visits Authorized [id number] Duplicate Referral Evaluate and Treat 11/22/2019 05/20/2020 12 12 * Consultation (Routine) - Closed Specialty Diagnoses / Procedures Referred By Contac t Referred To Contact Family Medicine Diagnoses Status post total hip replacement, right Iliotibial band syndrome, right Pain in right hip Trochanteric bursitis of right hip Claudio Cox MD [address] [place] [address] Ritu Bolaños APRN [address] [place] [address] Referral ID Status Reason Start Date Expiration Date V isits Requested Visits Authorized [id number] Closed Consult, Test & Treat 11/22/2019 05/20/2020 1 1 Encounter Details Date Type Department Care Team (Late st Contact Info) Description 11/22/2019 Orders Only Orthopaedics at [facility] [address] [place] [address] Claudio Cox MD [address] [place] [address] Status post total hip replacement, right; Iliotibial [...] of this encounter Progress Notes * Claudio Orozco Jr., RN - 11/22/2019 5:03 PM EST STOP-BANG Questionnaire BMI: BMI Readings from Last 1 Encounters: 10/10/19 22.83 kg/m?? Age: 74 y.o. Sex: female STOP 1. Do you snore loudly (louder than talking or loud enough to hear through closed doors?) No 2. Do you often feel tired, fatigued, or sleepy during the daytime? No 3. Has anyone observed you stop breathing during your sleep? No 4. Do you have, or have you ever, been treated for high blood pressure? Yes BANG 1. Is BMI more than 35? No 2. Age over 50? Yes 3. Is neck circumference greater than 16 inches (40 cm)? No 4. Is gender male? No Total Score: 2 High Risk of ELIS: YES 5-8 Intermediate Risk of ELIS: YES 3-4 Low Risk of ELIS: YES 0-2 documented in this encounter Plan of Treatment Scheduled Referrals Name Type Priority Associated Diagnoses Orde r Schedule Referral to General Internal Medicine Outpatient Referral Routine Status post total hip replacement, right Iliotibial band syndrome, right Pain in right hip Trochanteric bursitis of right hip Ordered: 11/22/2019 Referral to Physical Therapy Outpatient Referral Routine Status post total hip replacement, right Iliotibial band syndrome, right Pain in right hip Trochanteric bursitis of right hip Ordered: 11/22/2019 documented as of this encounter Visit Diagnoses Diagnosis Status post total hip replacement, right Iliotibial band syndrome, right Pain in right hip Pain in joint, pelvic region and thigh Trochanteric bursitis of right hip Enthesopathy of hip region documented in this encounter Care Teams Home Health Assistant Relationship Specialty Start Date End Date Ritu Bolaños APRN [address] [place] [phone] PCP - General 05/07/15 02/03/22 documented as of this encounter
--- OUTSIDE RECORDS SUMMARY | 2024-04-12 15:15 | XMS_ITS | Encounter Summary ---
[place] [address] Care Team Providers Care Home Health Clinical Supervisor Name Role Phone Ritu Bolaños APRN Primary Care Provider [phone]- [phone] Reason for Visit * Reason Comments Follow Up Surgery RT THR 06/19/2019 Encounter Details Date Type Department Care Team (Late st Contact Info) Description 07/18/2019 10:00 AM EDT Office Visit Orthopaedics at [address] [address] Eric Soto MD [address] [place] [address] Presence of right artificial hip joint Social [...] this encounter Patient Instructions * Patient Instructions* Eric Soto MD - 07/18/2019 10:00 AM EDT Jigna Espinoza is now 4 weeks after a right total hip arthroplasty. Her postop recovery was significant for significant hypotension in the recovery room, she got about 5 L of fluid boluses in an attempt to keep her blood pressure higher. Likely secondary to all of the fluid resuscitation, she hada significant amount of bleeding into the right thigh. She was transferred to [facility] for further investigation, and after about 2 days of observation she was sent home. Overall she is doing well, she did have a previous right abductor tendon repair with Dr. Claudio Gallo and secondary to the muscle weakness she is still using a cane when she is out in public, at home she goes without a cane. She has started physical therapy. In general she thinks things are proceeding well. She would of course like things to go faster, but I encouraged her and told her that with time things will improve and that I believe her gait and function will improve as well. No new radiographs were taken, and previous films at her last visit show excellent implant position. She has a history of spine surgery which leads to a slight pelvic obliquity and therefore the right leg behaves as though it is a little bit short compared to the left. Examination today shows a well-healed incision with one tiny scab, and range of motion of the hip is improving. I like to see her again in 2 months for another follow-up visit. I am quite happy with how she is doing, and even though she feels like she should be doing better, I told her to be patient, I expect to see further functional improvements as time goes on and as she works with a physical therapist on improving her gait and muscle strength. documented in this encounter Progress Notes * Eric Soto MD - 07/18/2019 10:00 AM EDT Date of Surgery: 06/19/2019 Procedure: Right total hip arthroplasty via direct anterior approach Jigna Espinoza is a 74 y.o. female presents today for a second postoperative visit after undergoing a total hip arthroplasty with Dr. Soto. She is currently full weightbearing with the assistance of a cane. Pain: Mild to moderate on the lateral aspect of the leg Current pain medications: Celebrex Physical Therapy: Started Outpatient PT at [facility] going twice a week. Leg Length Discrepancy: feels the surgical side is longer X-RAYS: AP pelvis and frog leg lateral views were obtained and demonstrate a stable, well seated total hip arthroplasty in good position with no evidence of loosening, subsidence or periprosthetic fracture. REVIEW OF SYMPTOMS: Constitutional: Denies fever, chills, fatigue Cardiovascular: Denies chest pain Respiratory: Denies shortness of breath Gastrointestinal: Denies nausea, vomiting, diarrhea, constipation or abdominal pain Neurovascular: Admtis numbness around the incision Musculoskeletal: Admits pain in the lateral aspect of the right leg Psychiatric: Mood and affect appropriate [facility] Surgical Postop Visit 07/06/2019 PROMIS-10 General Health Very Good PROMIS-10 Quality of Life Very Good PROMIS-10 Physical Health Very Good PROMIS-10 Mental Health Very Good PROMIS-10 Social Activity Good PROMIS-10 Everyday Activities A little PROMIS-10 Pain 6 PROMIS-10 Fatigue Moderate PROMIS-10 Social Roles Fair PROMIS-10 Anxious or Depressed Never PROMIS PHYSICAL HEALTH SCORE 39.8 PROMIS MENTAL HEALTH SCORE 53.3 [facility] Response 02/10/2017 APD HOOS Total Score 4.6 PHYSICAL EXAM: Constitutional : alert, in no acute distress, well-developed, well-nourished, well-groomed, body habitus normal Head/Face : Atraumatic, normocephalic General: alert and oriented. She appears in no acute discomfort and is resting comfortably in a chair in the exam room. Lumbar/Pelvis: Full ROM of lumbar spine in all planes, no point tenderness, no SI joint tenderness Gait/Station: trendelenberg gait with use of cane, Station normal . Right lower extremity : Hip: Inspection/Palpation: no tenderness to palpation, greater trochanteric tenderness, no effusion, no warmth, no swelling Range of Motion: FF 0- 110 degrees, ER 45 degrees, IR 15 degrees, ABD 35 degrees Strength: strength 5/5 Stability: no joint instability Test/Signs actives straight leg raise with groin discomfort, standing abduction is intact Thigh: no tenderness, no ecchymosis, no swelling Knee : Full ROM with no tenderness to palpation Lower leg: No tenderness to palpation, no swelling, no ecchymosis Leg Length Discrepancy: No 1.5-2mm longer on right Skin: no erythema present, no ecchymosis present, no signs of skin lesions or infection Sensation: :sensation to light touch intact in lower extremities, neurovascularly intact Mental status Examination: grossly oriented to person, place and time Mood and Affect: mood normal, affect appropriate Impression/Plan: Jigna Espinoza is now 4 weeks after a right total hip arthroplasty. Her postop recovery was significant for significant hypotension in the recovery room, she got about 5 L of fluidboluses in an attempt to keep her blood pressure higher. Likely secondary to all of the fluid resuscitation, she had a significant amount of bleeding into the right thigh. She was transferred to [facility] for further investigation, and after about 2 days of observation she was sent home. Overall she is doing well, she did have a previous right abductor tendon repair with Dr. Claudio Gallo and secondary to the muscle weakness she is still using a cane when she is out in public, at home she goes without a cane. She has started physical therapy. In general she thinks things are proceeding well. She would of course like things to go faster, but I encouraged her and told her that with timethings will improve and that I believe her gait and function will improve as well. No new radiographs were taken, and previous films at her last visit show excellent implant position. She has a history of spine surgery which leads to a slight pelvic obliquity and therefore the right leg behaves as though it is a little bit short compared to the left. Examination today shows a well-healed incisionwith one tiny scab, and range of motion of the hip is improving. I like to see her again in 2 months for another follow-up visit. I am quite happy with how she is doing, and even though she feels like she should be doing better, I told her to be patient, I expect to see further functional improvements as time goes on and as she works with a physical therapist on improving her gait and muscle strength. I Pat Smith am acting as scribe for Eric Soto MD. All work documented was performed by Eric oSto MD. IEric MD personally performed the services described in this documentation, as scribed by Pat Smith is both accurate and complete. documented in this encounter Plan of Treatment Not on file documented as of this encounter Visit Diagnoses Diagnosis Presence of right artificial hip joint Hip joint replacement by other means documented in this encounter Care Teams Home Health Clinical Supervisor Relationship Specialty Start Date End Date Ritu Bolaños APRN [address] [place] [id number] PCP - General 05/07/15 02/03/22 documented as of this encounter
--- OUTSIDE RECORDS SUMMARY | 2024-04-12 15:15 | XMS_ITS | Encounter Summary ---
Author Organization [facility] [place] [address] Care Team Providers Care Geographic Information Systems Manager Name Role Phone Ritu Bolaños APRN Primary Care Provider +1- [phone] Encounter Details Date Type Department Care Team (Late st Contact Info) Description 07/02/2019 Refill Orthopaedics at [facility] [place] [id number] Jennifer Smith RN Status post total replacement of right hip [...] Telephone Encounter - Jennifer Manjarrez RN - 07/02/2019 2:49 PM EDT Patient contacted clinic today with concerns of increased stiffness and difficulty ambulating afterher surgery. Patient is sp RIGHT total hip replacement performed 06/19/19 by Eric Soto MD. Patient was last contacted by clinic 06/22/19 to follow up with how she is doing regarding recovery. Patient stated that every time she moves everything is completely stiff and she has difficulty with all of the exercisesgiven the current pain levels off the charts. Patient confirmed that she was only taking acetaminophen 1000 mg every 8 hours for pain management and went off of the oxycodone 5 mg tablets because sheran out and did not wish to continue with the opioid medication. Patient feels as if she has made zero gains since last week and is worried about being so stiff and unable to do the various exercisesthat are asked of her to complete. Patient does not have VNA and is doing a lot of these exercises and recovery instructions independently. Patient inquired what the next best thing would be for her to do. Patient denied fever/chills, SOB, excessive swelling, redness/irritation/discharge, or chest palpitations. Patient advised that we will refill the oxycodone 5 mg tablet script for better pain ma nagement to use in conjunction with acetaminophen 1000 mg every 8 hours and celebrex 200 mg daily. Patient advised that we would prescribe zofran 4 mg tablet for her to use with the oxycodone to prevent vomiting. Patient advised to continue to work and do the exercises to the extent of doing them comfortably. Patient advised to make use of miralax and colace daily for duration of opioids and to increase fluid intake and fiber intake. Patient expressed understanding of instructions and will callwith concerns or questions. Patient has follow up appointment scheduled for 07/16/19. documented in this encounter Plan of Treatment Not on file documented as of this encounter Visit Diagnoses Diagnosis Status post total replacement of right hip documented in this encounter Care Teams Geographic Information Systems Manager Relationship Specialty Start Date End Date Ritu Bolaños APRN [address] [place] [address] PCP - General 05/07/15 02/03/22 documented as of this encounter
--- OUTSIDE RECORDS SUMMARY | 2024-04-12 15:16 | XMS_ITS | Encounter Summary ---
Author Organization [facility] [place] [address] Care Team Providers Care Software Applications Designer Name Role Phone Mami Ritu RAEANN Primary Care Provider [phone]- [phone] Encounter Details Date Type Department Care Team (Latest Contact Info) Description 06/08/2019 1:00 PM EDT Laboratory Appointment Laboratory at [facility] [place] [address] Primary osteoarthritis of right hip; Encounter for pre-operative laboratory testing Social History Tobacco Use Types Packs/Day Years Used Date Smoking Tobacco: Never Assessed Sex and Gender Information Value Date Recorded Sex Assigned at Not on file Gender Identity Female 09/25/2020 7:37 PM EST Sexual Orientation Not on file documented as of this encounter Plan of Treatment Not on file documented as of this encounter Procedures Procedure Name Priority Date/Time Associated Diagnosis Comments ANTIBODY SCREEN GEL (APD/NLH) Routine 06/08/2019 1:02 PM EDT Primary osteoarthritis of right hip Encounter for pre-operative laboratory testing ABORH TYPE GEL (APD/NLH) Routine 06/08/2019 1:02 PM EDT Primary osteoarthritis of right hip Encounter for pre-operative laboratory testing HC BLOOD GROUP (ABO) Routine 06/08/2019 1:02 PM EDT Primary osteoarthritis of right hip Encounter for pre-operative laboratory testing HEMOGRAM Routine 06/08/2019 1:02 PM EDT Primary osteoarthritis of right hip Encounter for pre-operative laboratory testing DIFFERENTIAL, AUTOMATED Routine 06/08/2019 1:02 PM EDT Primary osteoarthritis of right hip Encounter for pre-operative laboratory testing HC CBC,PLT & AUTO DIFF Routine 06/08/2019 1:02 PM EDT Primary osteoarthritis of right hip Encounter for pre-operative laboratory testing HC SCREENING CULTURE, SINGLE ORGANISM (STAPH,STREP, OR GC) Routine 06/08/2019 1:02 PM EDT Primary osteoarthritis of right hip Encounter for pre-operative laboratory testing HC VENIPUNCTURE Routine 06/08/2019 1:02 PM EDT Primary osteoarthritis of right hip Encounter for pre-operative laboratory testing documented in this encounter Results * Antibody Screen Gel (APD) (06/08/2019 1:02 PM EDT) AB Screen Interp Negative [facility] Blood specimen (specimen) 06/08/2019 1:02 PM EDT 06/08/2019 2:13 PM EDT Narrative Resulting Agency Comment Spec In Lab / APD Eric Soto MD BLOOD BANK LAB ORDER GREGORIO Performing Organization Address City/[facility]/ZIP Co de Phone Number [email or web address] [address] [place] [address] * ABORh type Gel (APD) (06/08/2019 1:02 PM EDT) Expires at [id number] on: 06/11/2019 [facility] ABORh Type O [facility] Blood specimen (specimen) 06/08/2019 1:02 PM EDT 06/08/2019 2:13 PM EDT Narrative Resulting Agency Comment Spec In Lab / APD Eric Soto MD BLOOD BANK LAB ORDER GREGORIO Performing Organization Address City/[facility]/ZIP Co de Phone Number [facility] [address] [place] [address] * Differential, Automated (06/08/2019 1:02 PM EDT) Neutrophils % 45.7 % [employer] [facility] Neutr Abs (ANC) 2.16 1.70 - 6.10 x10(3)/mcL [facility] Lymphocytes % 37.6 % [facility] Lymphocytes Abs 1.8 0.9 - 3.2 x10(3)/mcL [facility] Monocytes % 9.3 % [facility] Monocyte Abs 0.4 0.3 - 0.9 x10(3)/mcL [facility] Eosinophils % 6.6 % [facility] Eosinophils Abs 0.3 0.0 - 0.4 x10(3)/mcL [facility] Basophils % 0.6 % [facility] Basophils Abs 0.0 0.0 - 0.1 x10(3)/mcL [facility] Immature Gran % 0.20 % [facility] Comment: Immature granulocytes(IG's)percentage and absolute count will include metamyelocytes, myelocytes, and promyelocytes. Blood smears from CBCs yielding IG's will be scanned manually for concordance. If this scan disagrees with the automated IG or if promyelocytes are noted, a manual differential will be performed. Estefany Gran Abs 0.01 0.00 - 0.04 x10(3)/[facility] Blood specimen (specimen) 06/08/2019 1:02 PM EDT 06/08/2019 2:13 PM EDT Narrative Resulting Agency Comment Spec In Lab / APD Eric Soto MD HEMATOLOGY ORDERABLE S [facility] [address] [place] [address] * (ABNORMAL) Hemogram (06/08/2019 1:02 PM EDT) WBC 4.7 4.0 - 9.5 x10(3)/[facility] RBC 4.08 4.00 - 5.21 x10(6)/[facility] Hemoglobin 12.7 11.7 - 15.5 gm/dL [facility] Hematocrit 37.3 35.7 - 45.8 % [facility] MCV 91.4 82.6 - 94.4 fL [facility] MCH 31.1 27.1 - 32.0 pg [facility] MCHC 34.0 31.7 - 35.0 gm/dL [facility] Platelets 287 145 - 357 x10(3)/[facility] RDWSD 48.4(H) 37.0 - 46.0 fL [facility] RDWCV 14.2(H) 11.5 - 14.1 % [facility] MPV 10.2 7.6 - 12.9 fL [facility] Blood specimen (specimen) 06/08/2019 1:02 PM EDT 06/08/2019 2:13 PM EDT Narrative Resulting Agency Comment Spec In Lab / APD Authorizing Provider Result Pb Soto MD HEMATOLOGY ORDERABLE S Performing Organization Address City/[facility]/ZIP Co de Phone Number [facility] [address] [place] [address] * Staph aureus/MRSA Culture Screen Nasal (06/08/2019 1:02 PM EDT) Staphylococcus Screening Culture No Staphylococcus aureus isolated [facility] Specimen from nose (specimen) 06/08/2019 1:02 PM EDT 06/08/2019 3:54 PM EDT Narrative Resulting Agency Comment Spec In Lab / APD Authorizing Provider Result Pb Soto MD MICROBIOLOGY - GENER AL ORDERABLES Performing Organization Address City/[facility]/ZIP Co de Phone Number [facility] [place] [address] * (ABNORMAL) Comprehensive metabolic panel (non-fasting) (06/08/2019 1:02 PM EDT) Glucose Lvl 105 65 - 199 mg/dL [facility] Comment:Diabetes: >=200 mg/d L plus symptoms BUN 16 8 - 18 mg/dL [facility] Creatinine 0.69(L) 0.70 - 1.20 mg/dL [facility] Sodium 134(L) 135 - 145 mmol/L LAB[facility]ORY Potassium 3.9 3.5 - 5.0 mmol/L [facility] Comment: Please note: ??Patients with WBC >100,000 may have falsely elevated Potassium levels. ??For accurate Potassium quantification in these patients send serum separator tube (gold top) for subsequent determinations. ??Contact the Clinical Chemistry Laboratory if there are any questions. Chloride 97(L) 98 - 107 mmol/L LAB[facility]ORY CO2 25 22 - 31 mmol/L [facility] Anion Gap 12 5 - 15 mmol/L LAB[facility] Calcium 9.5 8.5 - 10.5 mg/dL [facility] Total Protein 7.0 6.1 - 8.0 gm/dL [facility] Albumin 4.5 3.2 - 5.2 gm/dL [facility] AST 27 0 - 30 unit/L [facility] ALT 21 0 - 30 unit/L [facility] Alk Phos 71 35 - 105 unit/L [facility] Total Bilirubin 0.4 0.2 - 1.3 mg/dL LAB[facility] Estimated GFR 85 >=60 mL/min/1. 73 m?? LAB[facility]ATORY Comment: The eGFR was calculated using the CKD-EPI equation. As with all creatinine based estimates of kidney function, eGFR values calculated with the CKD-EPI equation are not accurate in patients with acute kidney failure, extremes of body mass or the acutely ill. http://Lottay/[facility]SAnkf eGFR 99 >=60 mL/min/1. 73 m?? [facility]ORY Comment: The eGFR was calculated using the CKD-EPI equation. As with all creatinine based estimates of kidney function, eGFR values calculated with the CKD-EPI equation are not accurate in patients with acute kidney failure, extremes of body mass or the acutely ill. http://Lottay/[facility]SAnkf Blood specimen (specimen) 06/08/2019 1:02 PM EDT 06/08/2019 2:13 PM EDT Narrative Resulting Agency Comment Spec In Lab / APD Eric Soto MD CHEMISTRY ORDERABLES [facility] [address] [place] [address] documented in this encounter Visit Diagnoses Diagnosis Primary osteoarthritis of right hip Primary localized osteoarthrosis, pelvic region and thigh Encounter for pre-operative laboratory testing Preoperative examination, unspecified documented in this encounter Care Teams Software Applications Designer Relationship Specialty Start Date End Date Ritu Bolaños APRN [address] [place] [id number] PCP - General 05/07/15 02/03/22 documented as of this encounter
--- OUTSIDE RECORDS SUMMARY | 2024-04-12 15:16 | XMS_ITS | Encounter Summary ---
[place] [address] Care Team Providers Care Lumber Grader Name Role Phone Ritu Bolaños APRN Primary Care Provider [phone]- [phone] Reason for Visit * Reason Comments Right Hip Pain s/p rt thr 05/25/2017 Encounter Details Date Type Department Care Team (Latest Contact Info) Description 03/02/2019 9:30 AM EDT Office Visit Orthopaedics at [facility] [address] [place] [address] Eric Soto MD [address] [place] [address] Pain in right hip (Primary Dx); Primary osteoarthritis of right hip; Leg length inequality Social History Tobacco Use Types Packs/Day Years Used Date Smoking Tobacco: Never Assessed Sex and Gender Information Value Date Recorded Sex Assigned at Not on file Gender Identity Female 09/25/2020 7:37 PM EST Sexual Orientation Not on file documented as of this encounter Last Filed Vital Signs Vital Sign Reading Time Taken Comments Blood Pressure - - Pulse - - Temperature - - Respiratory Rate - - Oxygen Saturation - - Inhaled Oxygen Concentration - - Weight 61.7 kg (136 lb) 03/02/2019 9:31 AM EDT Height 162.6 cm (5' 4) 03/02/2019 9:31 AM EDT Body Mass Index 23.34 03/02/2019 9:31 AM EDT documented in this encounter Patient Instructions * Patient Instructions* Eric Soto MD - 03/02/2019 9:30 AM EDT I am seeing Jigna for right buttock, lateral hip, and groin pain, I last saw her several years ago when I referred her to Dr. Claudio Cox for repair of a completely torn right abductor tendon. She is also had instrumented spine fusion with Dr. Gentile. She tells me both operations were helpful, theabductor tendon repair it did result in some increased abductor power, although she points out to me that the right hip abductors are still very weak and she walks with a limp as a result. In terms of the spine fusion, a significant amount of her back pain has improved as did her radicular and stenosis symptoms. She is left with discomfort sometimes in the groin, often laterally, and sometimes inthe right buttock. An SI joint injection was done at [facility] earlier this year and resulted in pretty dramatic improvement of her buttock pain for up to 24 hours. She uses a cane, does exercises athome regularly. She is here to find out whether a right hip replacement might help the way her hip functions and specifically help her gait. I reviewed both radiographs and MRIs today of the hip, of the spine, and together these show moderately severe OA of the right hip with focal full- thickness cartilage loss in the hip joint. Bone density appears to be good. Left hip shows no significant OA. Examination today shows markedly diminished strength of the right abductors, perhaps 3+ out of 5 and range of motion of the right hip which provokes groin pain with abduction and internal rotation. Plan: At this point I think it is important to determine what aspects of her pain are originating from the hip joint versus the abductor muscle, versus the SI joint. For that reason we will go ahead with a diagnostic left hip joint injection to be administered by radiology, [facility] only, and I have asked the patient and her to take notes afterwards to see if her symptoms improved. The fact that the SI injection helped her buttock pain leads me to believe that SI fusion with Dr. Liconaay be a good idea. However they will delay any decision until we have done the hip joint injection first. documented in this encounter Progress Notes * Pat Smith LNA - 03/02/2019 9:30 AM EDT Chief Complaint: No chief complaint on file. Date Of Surgery: 05/25/2017 PCP: RAEANN Parham Comp: No The patient presents to the orthopedic clinic for follow up for right hip pain which began years ago. She was last seen in clinic for this complaint on 09/28/2018 with Claudio Cox MD. The pertinent information regarding the patient's hip complaint is documented in the patient's electronic medical record. The patient reports her hip complaint has unchanged. She reports unchanged discomfort in the hip. Would like to talk about other options. Left is longerthan right REVIEW OF SYMPTOMS: Constitutional: Denies fever, chills, fatigue Cardiovascular: Denies chest pain Respiratory: Denies shortness of breath Gastrointestinal: Denies nausea, vomiting, diarrhea, constipation or abdominal pain Neurovascular: Denies numbness or tingling Musculoskeletal: Admits pain in the right hip Psychiatric: Mood and affect appropriate * Eric Soto MD - 03/02/2019 9:30 AM EDT Chief Complaint: Chief Complaint Patient presents with ??? Right Hip Pain s/p rt thr 05/25/2017 Date Of Surgery: 05/25/2017 PCP: RAEANN Parham Comp: No The patient presents to the orthopedic clinic for follow up for right hip pain which began years ago. She was last seen in clinic for this complaint on 09/28/2018 with Claudio Cox MD. The pertinent information regarding the patient's hip complaint is documented in the patient's electronic medical record. The patient reports her hip complaint has unchanged. She reports unchanged discomfort in the hip. Would like to talk about other options. Left is longerthan right REVIEW OF SYMPTOMS: Constitutional: Denies fever, chills, fatigue Cardiovascular: Denies chest pain Respiratory: Denies shortness of breath Gastrointestinal: Denies nausea, vomiting, diarrhea, constipation or abdominal pain Neurovascular: Denies numbness or tingling Musculoskeletal: Admits pain in the right hip Psychiatric: Mood and affect appropriate [facility] Postop Visit 03/02/2019 PROMIS-10 General Health Good PROMIS-10 Quality of Life Good PROMIS-10 Physical Health Good PROMIS-10 Mental Health Very Good PROMIS-10 Social Activity Fair PROMIS-10 Everyday Activities Moderately PROMIS-10 Pain 4 PROMIS-10 Fatigue Mild PROMIS-10 Social Roles Good PROMIS-10 Anxious or Depressed Rarely PROMIS PHYSICAL HEALTH SCORE 42.3 PROMIS MENTAL HEALTH SCORE 45.8 [facility] Response 02/10/2017 APD HOOS Total Score 4.6 No flowsheet data found. PHYSICAL EXAM: Constitutional : alert, in no acute distress, well-developed, well-nourished, well-groomed, body habitus normal Head/Face : Atraumatic, normocephalic Gait/Station: Antalgic Gait, Ambulates with assistance of cane, Station normal . General: alert and oriented. She appears in no acute discomfort and is resting comfortably in a chair in the exam room. Lumbar/Pelvis: Full ROM of lumbar spine in all planes, no point tenderness, left greater than rightSI joint tenderness Right lower extremity : Hip: Inspection/Plan: no tenderness to palpation, greater trochanteric tenderness, no effusion, no warmth, no swelling Range of Motion: FF 0-125 Degrees with groin pain, ER 50 degrees, IR 25 degrees with groin pain, ABD 50 degrees Strength: 5/5 Stability: normal Test/Signs Thigh: no tenderness, no ecchymosis, no swelling Knee : Full ROM with no tenderness to palpation Lower leg: No tenderness to palpation, no swelling, no ecchymosis Left lower extremity : Hip: Inspection/Plan: no tenderness to palpation, no greater trochanteric tenderness, no effusion, no warmth, no swelling Range of Motion: FF 0-130 degrees, ER 45 degrees, IR 35 degrees, ABD 50 degrees Strength: 5/5 Stability: normal Test/Signs Thigh: no tenderness, no ecchymosis, no swelling Knee : Full ROM with no tenderness to palpation Lower leg: No tenderness to palpation, no swelling, no ecchymosis Muscle tone: tone normal Leg Length Discrepancy: Yes, short on right side by 8 mm. Skin: no erythema present, no ecchymosis present, no signs of skin lesions or infection Sensation: : normal sensation, neurovascularly intact Mental status Examination: grossly oriented to person, place and time Mood and Affect: mood normal, affect appropriate Impression/Plan: I am seeing Jigna for right buttock, lateral hip, and groin pain, I last saw her several years ago when I referred her to Dr. Claudio Cox for repair of a completely torn right abductor tendon. She is also had instrumented spine fusion with Dr. Gentile. She tells me both operations were helpful, the abductor tendon repair it did result in some increased abductor power, although she points out to me that the right hip abductors are still very weak and she walks with a limp as a result. In terms of the spine fusion, a significant amount of her back pain has improved as did her radicular and stenosis symptoms. She is left with discomfort sometimes in the groin, often laterally,and sometimes in the right buttock. An SI joint injection was done at [facility] earlier this year and resulted in pretty dramatic improvement of her buttock pain for up to 24 hours. She uses a cane, does exercises at home regularly. She is here to find out whether a right hip replacement might helpthe way her hip functions and specifically help her gait. I reviewed both radiographs and MRIs today of the hip, of the spine, and together these show moderately severe OA of the right hip with focal full- thickness cartilage loss in the hip joint. Bone density appears to be good. Left hip shows no significant OA. Examination today shows markedly diminished strength of the right abductors, perhaps 3+ out of 5 and range of motion of the right hip which provokes groin pain with abduction and internal rotation. Plan: At this point I think it is important to determine what aspects of her pain are originating from the hip joint versus the abductor muscle, versus the SI joint. For that reason we will go ahead with a diagnostic left hip joint injection to be administered by radiology, [facility] only, and I have asked the patient and her to take notes afterwards to see if her symptoms improved. The fact that the SI injection helped her buttock pain leads me to believe that SI fusion with Dr. Liconaay be a good idea. However they will delay any decision until we have done the hip joint injection first. I Mellisa Mora am acting as scribe for Eric Soto MD. All work documented was performed by Eric Soto MD. I, Eric Soto MD personally performed the services described in this documentation, as scribed by Mellisa Mora is both accurate and complete. documented in this encounter Plan of Treatment Not on file documented as of this encounter Results * XR Fluoro Guided Joint Injection Large Right (03/16/2019 1:20 PM EDT) Anatomical Region Laterality Modality Right Radio Fluoroscop y Impressions 03/19/2019 10:29 AM EDT Uneventful right hip joint injection under fluoroscopy. Resident/Fellow: None Attending: There was no attending present for this procedure Procedure performed by Terrie Richey APRN Thank you for letting us participate in the care of this patient. For questions regarding this report, please contact the number below. ? Electronically signed by: Terrie Richey [facility] ([phone]), at 03/19/2019 10:29 AM Narrative 03/19/2019 10:29 AM EDT HISTORY: Right hip and buttock pain, with history of spine and abductor tendon issues, want Marcaine injection to determine whether hip joint is a pain source. RIGHT HIP JOINT INJECTION UNDER FLUOROSCOPY TECHNIQUE: After an extensive conversation with the patient regarding risks and benefits, oral and written consent were obtained.? A pre- procedural time-out was performed, including review of the patient's relevant electronic medical record and allergies, as per [facility] protocol. The patient was placed supine on the fluoroscopic table. ??The skin overlying the right anterior hip was prepped and draped in the usual aseptic manner. 1% Lidocaine was used to achieve local anesthesia. Under fluoroscopic guidance, 22 gauge 3.5 inch spinal needle was advanced into the joint space. ??Small amount of air was injected to document needle placement. ??A mixture of Ropivacaine and triamcinolone acetonide was injected. All needles removed at end of procedure. FINDINGS: 1. ??Small amount of injected air in the right hip joint space.(Unable to load exam) 2. ??PAIN SCORE: ??Before: 4/10 ??After: 0/10 3. Fluoroscopy time: 0.07 minutes 4. Medications: ??Lidocaine 1% - <5 ml, for subcutaneous anesthesia ??Ropivacaine HCL ??0.5% - 3 ml ??Triamciolone Acetonide ??- 40 mg COMPLICATIONS: ??None immediate. POST-PROCEDURE CARE: Information regarding monitor of infection, post- procedural pain and management of steroid flare were reviewed with patient. Procedure Note Terrie Richey, SYSTEM OPERATOR - 03/19/2019 HISTORY: Right hip and buttock pain, with history of spine and abductortendon issues, want Marcaine injection to determine whether hip joint is a painsource. RIGHT HIP JOINT INJECTION UNDER FLUOROSCOPY TECHNIQUE: After an extensive conversation with the patient regarding risks andbenefits, oral and written consent were obtained.? A pre- procedural time-out was performed, including review of the patient's relevant electronic medicalrecord and allergies, as per [facility] protocol. The patient was placed supine on the fluoroscopic table. The skinoverlying the right anterior hip was prepped and draped in the usual aseptic manner.1% Lidocaine was used to achieve local anesthesia. Under fluoroscopicguidance, 22 gauge 3.5 inch spinal needle was advanced into the joint space. Smallamount of air was injected to document needle placement. A mixture of Ropivacaineand triamcinolone acetonide was injected. All needles removed at end ofprocedure. FINDINGS: 1. Small amount of injected air in the right hip joint space.(Unable toload exam) 2. PAIN SCORE: Before: 4/10 After: 0/10 3. Fluoroscopy time: 0.07 minutes 4. Medications: Lidocaine 1% - <5 ml, for subcutaneous anesthesia Ropivacaine HCL 0.5% - 3 ml Triamciolone Acetonide - 40 mg COMPLICATIONS: None immediate. POST-PROCEDURE CARE: Information regarding monitor of infection, post- procedural pain and management of steroid flare were reviewed withpatient. IMPRESSION Uneventful right hip joint injection under fluoroscopy. Resident/Fellow: None Attending: There was no attending present for this procedure Procedure performed by Terrie Richey APRN Thank you for letting us participate in the care of this patient. Forquestions regarding this report, please contact the number below. Electronically signed by: Terrie Richey [facility]([phone]), at 03/19/2019 10:29 AM Eric Soto MD IMG FLUORO ORDERABLE S documented in this encounter Visit Diagnoses Diagnosis Pain in right hip- Primary Pain in joint, pelvic region and thigh Primary osteoarthritis of right hip Primary localized osteoarthrosis, pelvic region and thigh Leg length inequality Unequal leg length (acquired) Pain in right hip Pain in joint, pelvic region and thigh documented in this encounter Care Teams Lumber Grader Relationship Specialty Start Date End Date Ritu Bolaños APRN [address] [place] [address] PCP - General 05/07/15 02/03/22 documented as of this encounter
--- OUTSIDE RECORDS SUMMARY | 2024-04-12 15:16 | XMS_ITS | Encounter Summary ---
Author Organization [facility] Address [facility] [place] [address] Care Team Providers Care Commercial Intelligence Manager Name Role Phone Ritu Bolaños APRN Primary Care Provider +1- [phone] Encounter Details Date Type Department Care Team (Late st Contact Info) Description 03/19/2019 Telephone Orthopaedics at [facility] [address] [facility] [place] [address] Starr Aguilar RN Social History Tobacco Use Types Packs/Day Years Used Date Smoking Tobacco: Never Assessed Sex and Gender Information Value Date Recorded Sex Assigned at Not on file Gender Identity Female 09/25/2020 7:37 PM EST Sexual Orientation Not on file documented as of this encounter Miscellaneous Notes * Telephone Encounter - Starr Aguilar RN - 03/19/2019 9:12 AM EDT Patient called to report the injection she recieved on Tuesday was effective. Pt reports 100% pain relief. She states she believes this means she may have hip surgery now. Will forward this info to nurse Loly and Also recieved call from Terrie Richey APRN stating she wanted to make sure we knew that a steroid was injected in case this affects timing of surgery. documented in this encounter Plan of Treatment Not on file documented as of this encounter Visit Diagnoses Not on filedocumented in this encounter Care Teams Commercial Intelligence Manager Relationship Specialty Start Date End Date Ritu Bolaños APRN [address] [place] [address] PCP - General 05/07/15 02/03/22 documented as of this encounter
--- OUTSIDE RECORDS SUMMARY | 2024-04-12 15:16 | XMS_ITS | Encounter Summary ---
Author Organization [facility] [place] [address] Care Team Providers Care Panelboard Operator Name Role Phone Ritu Bolaños APRN Primary Care Provider +1- [phone] Encounter Details Date Type Department Care Team (Late st Contact Info) Description 06/08/2019 10:00 AM EDT Notes [facility] [place] [address] Social History Tobacco Use Types Packs/Day Years Used Date Smoking Tobacco: Never Assessed Sex and Gender Information Value Date Recorded Sex Assigned at Not on file Gender Identity Female 09/25/2020 7:37 PM EST Sexual Orientation Not on file documented as of this encounter Progress Notes * Jennifer Manjarrez, RN - 06/08/2019 10:00 AM EDT Patient attended joint school today prior to RIGHT THR scheduled for 06/19/19 with Charles. All questions answered during presentation. Patient advised to call clinic with further questions or concerns. documented in this encounter Plan of Treatment Not on file documented as of this encounter Visit Diagnoses Not on filedocumented in this encounter Care Teams Panelboard Operator Relationship Specialty Start Date End Date Ritu Bolaños APRN [address] [place] [address] PCP - General 05/07/15 02/03/22 documented as of this encounter
--- OUTSIDE RECORDS SUMMARY | 2024-04-12 15:16 | XMS_ITS | Encounter Summary ---
Author Organization [facility] [place] [address] Care Team Providers Care Machine Learning Intern Name Role Phone Ritu Bolaños RAEANN Primary Care Provider +1- [phone] Reason for Visit * Auth/Cert Specialty Diagnoses / Procedures Referred By Lennox t Referred To Contact Diagnoses Hip OA/DJD Procedures PRO TOTAL HIP ARTHROPLASTY @TOTAL HIP ARTHROPLASTY, ANTERIOR APPROACH (WRVU 20.72) MODIFIER HAMMOND & NEPHEW - R3 ACETABULAR CUP MODIFIER HAMMOND & NEPHEW - POLAR STEM CEMENTLESS Referral ID Status Reason Start Date Expiration Date Visits Re quested Visits Authorized [id number] 1 1 Encounter Details Date Type Department Care Team (Late st Contact Info) Description 06/19/2019 7:37 AM EDT Anesthesia [place] [address] Claudio Monteiro CRNA [address] [place] [address] Anesthesia Record Procedure Summary Procedure Name Responsible Anesthesiologist Anesthesia Start Time Anesthesia Stop Time TOTAL HIP ARTHROPLASTY, ANTERIOR APPROACH (WRVU 19.6) (Right: Hip) Claudio Monteiro CRNA 06/19/19 0737 06/19/19 0921 Events Date Time Event Comment 06/19/2019 0718 0737 Start 0737 Quick Note Delayed arrival to OR as surgeon was rigo. 0739 AN Verify 0739 An Start Data 0741 Spinal 0746 Anesthesia Ready 0911 an stop data 0914 Recovery or ICU Handoff Karley ent care was transferred to the destination unit staff after review of the patient's medical history, current anesthetic/surgical status and plan, according to the Provider Handoff Checklist. 0921 Stop Meds Name Total Midazolam 3 mg fentaNYL 50 mcg IV Lidocaine 20 mg Propofol INF 339.66 mg Tranexamic Acid 1,000 mg Ondansetron 4 mg Dexamethasone 10 mg ceFAZolin (Ancef) 1 g vial a ttach to sodium chloride 0.9% 100 mL Mini-Bag Plus 2 g BUpivacaine 0.5% 2.5 mL lactated ringers infusion 1,800 mL * Agents Name O2 Air N2O O2 Auxiliary Flowmeter 1 * Blood No blood administrations on file. Lines, Drains, and Airways Type Details Placement Removal (RETIRED) Peripheral IV Line - Single Lumen 06/19/19; 0645; median vein (underside of arm), left; yvxn-van-vcrlmc catheter system; 20 gauge; CHATO Jensen; distraction; removed per policy/procedure; 06/20/19; 0600 06/19/19 0645 by Christal Paula RN 06/20/19 0600 by Jose Roberto Cortes Urethral Catheter 06/19/19; 0750; Physician order; Physician order; indwelling single lumen catheter; 100% silicone; 16; inserted at this facility; 1; 5; 10; none; 06/20/19; 1234 06/19/19 0750 by Sophia De Anda RN 06/20/19 1234 by Yadira Villarreal RN Incision 06/19/19; 0812; hip; 05/12/21; 1607 06/19/19 [...] OR Notes * Anesthesia Postprocedure Evaluation - Claudio Monteiro CRNA - 06/19/2019 9:21 AM EDT Department of Anesthesiology Post-procedure Note Patient: Jigna Espinoza Procedure Summary Date: 06/19/19 Room / Location: [facility] OR MAIN OR Anesthesia Start: 736 Anesthesia Stop: 920 Procedures: @TOTAL HIP ARTHROPLASTY, ANTERIOR APPROACH (WRVU 20.72) (Right Hip) MODIFIER HAMMOND & NEPHEW - R3 ACETABULAR CUP (Right Hip) MODIFIER HAMMOND & NEPHEW - POLAR STEM CEMENTLESS (Right Hip) Diagnosis: Primary osteoarthritis of right hip (Hip OA/DJD) Surgeon: Eric Soto MD Responsible Provider: Claudio Monteiro CRNA Anesthesia Type: spinal ASA Status: 2 All Anesthesia Providers: JACKY Independent: Claudio Monteiro CRNA Vitals Value Taken Time BP 136/75 Temp 36.5 Pulse 74 Resp 18 SpO2 98% Pain Level Patient Location: PACU/SD Level of Consciousness: Awake and Alert Pain Management: Satisfactory Analgesia PONV: None Cardiovascular Status: At Baseline and Hemodynamically Stable Respiratory Status: At Baseline and Supplemental O2 (NC or FM) Postoperative Fluid Status: Intravascular EUvolemia Possible Anesthetic Complications: NONE apparent at time of evaluation Final Primary Anesthesia Type: Spinal (The anesthetic type performed was the same as planned.) Comments: Vital signs stable, report to RN using checklist. 0935 Patient with frequent PACs and drop in BP and nausea. No CP, no SOB. IV fluid bolus, 12 lead EKG and total 10mg ephedrine administered. 0945 nausea resolved 12 lead without changes. VSS Surgeon aware. Discussed with hospitalist, who agrees to see patient. Claudio Monteiro CRNA * Anesthesia Procedure Notes - Claudio Monteiro CRNA - 06/19/2019 8:14 AM EDT Associated Order(s): Neuraxial (Operative Procedure/ APS) Procedure: Neuraxial Block Primary Anesthetic Type: Spinal The patient was greeted. The sedation plan, its benefits, risks and alternatives were discussed with the patient. The patient has consented to the procedure. The medical history and chart were reviewed. The timeout was performed. Start time: 06/19/2019 7:41 AM End time: 06/19/2019 7:45 AM Patient Prep Position: Sitting Prep: Hand Hygiene, Hat, Mask, Sterile Gloves and Povidone-Iodine Injection technique: single-shot Skin Anesthetic Lidocaine 1% 1 ml Procedure Technique Level of needle insertion: L4-5 Needle approach: midline Needle Type: Pencan Gauge: 24 Number of attempts: 1 Medications: Date/Time: 06/19/2019 7:45 AM BUpivacaine 0.5%, 2.5 mL Events/Notes Events: None Additional Notes: #24g pencil point L4-L5 after sterile prep and skin wheel. +CSF, no heme, no paresthesia. 2.5 cc isobaric bupivacaine administered. Patient tolerated well with excellent block results. Resident/TANGIBLE PERSONAL PROPERTY APPRAISER: Claudio Monteiro CRNA Second Resident/TANGIBLE PERSONAL PROPERTY APPRAISER: Fellow: Attending Physician: ~~~~~~~~~~~~~~~~~~~~~~~~~~~~~~~~~~~~~~~~~~~~~~~~~~~~~~~~~~~~ * Anesthesia Preprocedure Evaluation - Claudio Monteiro CRNA - 06/12/2019 8:54 AM EDT Pre-Anesthesia Evaluation for: Jigna Espinoza a 74 y.o. female. Procedure(s): @TOTAL HIP ARTHROPLASTY, ANTERIOR APPROACH (WRVU 20.72) MODIFIER HAMMOND & NEPHEW - R3 ACETABULAR CUP MODIFIER HAMMOND & NEPHEW - POLAR STEM CEMENTLESS Patient Active Problem List Diagnosis ??? Claustrophobia ??? Allergic rhinitis ??? Alopecia ??? Anxiety ??? Arthritis ??? Asthma ??? Osteoarthrosis ??? Basal cell carcinoma of skin ??? Chronic constipation ??? Depressive disorder ??? Fatigue ??? Gastroesophageal reflux disease ??? Hand pain, right ??? Hyperlipidemia ??? Hypertension ??? L3 vertebral fracture ??? Osteoporosis ??? Neck pain ??? Leg length discrepancy ??? Osteopenia ??? Preop testing ??? Rupture of biceps tendon ??? S/P lumbar fusion ??? Vertiginous syndrome and labyrinthine disorder ??? Seborrheic keratosis ??? Sacroiliac joint dysfunction of both sides ??? Lumbar spinal stenosis ??? Breast calcifications ??? Pain in right hip ??? Pain in joint, pelvic region and thigh Past Medical History: Diagnosis Date ??? Asthma ??? Cancer bcc ??? Chronic pain ??? Claustrophobia 06/11/2019 ??? Gastroesophageal reflux ??? [place] cell skin cancer of right lower leg 1992 Past Surgical History: Procedure Laterality Date ??? APPENDECTOMY 1967 ??? CHOLECYSTECTOMY 1971 ??? CT GUIDED INJECTION SI JOINT 01/30/2019 CT Guided Injection SI Joint 01/30/2019 [facility] RAD CAT SCAN ??? CT GUIDED JOINT INJECTION 09/04/2018 CT Guided Joint Injection 09/04/2018 [facility] RAD CAT SCAN ??? HIP SURGERY 05/25/2017 ??? HYSTERECTOMY ??? OVARY REMOVAL ??? SPINAL FUSION 01/2018 ??? XR FLUORO INJECTION DRAINAGE JOINT LG RIGHT Right 03/16/2019 XR Fluoro Guided Joint Injection Large Right 03/16/2019 [facility] RAD XRAY Social History Tobacco Use ??? Smoking status: Never Smoker ??? Smokeless tobacco: Never Used Substance Use Topics ??? Alcohol use: Not on file Social History Substance and Sexual Activity Drug Use Not on file Allergies Allergen Reactions ??? Codeine Nausea Only ??? Hydrocodone Nausea Only ??? Hydromorphone Nausea Only ??? Ketorolac Other reaction(s): black stools, nausea and vomting ??? Tramadol Nausea Only Medications: MAR and/or [...] ASA 2 spinal, with a(n) intravenous induction Pt with lumbar spine disease and S/P lumbar fusion. Patient consents to Spinal Anesthetic after discussion of risks, benefits and questions answered. Patient consents to General Anesthesia as back upplan. Informed Consent: Anesthetic plan and risks discussed with patient. PAT Clinic Note documented in this encounter Miscellaneous Notes * Addendum Note - Claudio Monteiro CRNA - 06/19/2019 4:59 PM EDT Addendum created 06/19/19 1659 by Claudio Monteiro CRNA Order list changed * Addendum Note - Claudio Monteiro CRNA - 06/19/2019 3:37 PM EDT Addendum created 06/19/19 1537 by Claudio Monteiro CRNA Order list changed, Sign clinical note * Addendum Note - Vitor Lugo CRNA - 06/19/2019 12:19 PM EDT Addendum created 06/19/19 1219 by Vitor Lugo CRNA Sign clinical note * Addendum Note - Claudio Monteiro CRNA - 06/19/2019 12:18 PM EDT Addendum created 06/19/19 1218 by Claudio Monteiro CRNA Order list changed, Order sets accessed * Addendum Note - Claudio Monteiro CRNA - 06/19/2019 12:04 PM EDT Addendum created 06/19/19 1204 by Claudio Monteiro CRNA Sign clinical note * Addendum Note - Claudio Monteiro CRNA - 06/19/2019 10:30 AM EDT Addendum created 06/19/19 1030 by Claudio Monteiro CRNA Diagnosis association updated, Order list changed, Order sets accessed * Addendum Note - Claudio Monteiro CRNA - 06/19/2019 9:53 AM EDT Addendum created 06/19/19 0953 by Claudio Monteiro CRNA Diagnosis association updated, Order list changed, Sign clinical note, Visit diagnoses modified documented in this encounter Plan of Treatment Not on file documented as of this encounter Procedures Procedure Name Priority Date/Time Associated Diagnosis Comments ANE NEURAXIAL UPDATED Routine 06/19/2019 8:14 AM EDT documented in this encounter Results * Neuraxial (Operative Procedure/ APS) (06/19/2019 8:14 AM EDT) Narrative Claudio Monteiro CRNA - 06/19/2019 8:14 AM EDT Claudio Monteiro CRNA ? 06/19/2019 ??8:15 AM Procedure: ?? Neuraxial Block Primary Anesthetic Type: Spinal The patient was greeted. The sedation plan, its benefits, risks and alternatives were discussed with the patient. ??The patient has consented to the procedure. ??The medical history and chart were reviewed. ??The timeout was performed. Start time: 06/19/2019 7:41 AM End time: 06/19/2019 7:45 AM Patient Prep Position: Sitting Prep: Hand Hygiene, Hat, Mask, Sterile Gloves and Povidone-Iodine Injection technique: single-shot Skin Anesthetic Lidocaine 1% ??1 ml Procedure Technique Level of needle insertion: L4-5 Needle approach: midline Needle Type: Pencan Gauge: 24 Number of attempts: 1 Medications: Date/Time: ??06/19/2019 7:45 AM BUpivacaine 0.5%, 2.5 mL Events/Notes Events: ??None Additional Notes: ??#24g pencil point L4-L5 after sterile prep and skin wheel. +CSF, no heme, no paresthesia. 2.5 cc isobaric bupivacaine administered. ??Patient tolerated well with excellent block results. Resident/TANGIBLE PERSONAL PROPERTY APPRAISER: ? Claudio Monteiro CRNA Second Resident/TANGIBLE PERSONAL PROPERTY APPRAISER: Fellow: ? Attending Physician: ? ~~~~~~~~~~~~~~~~~~~~~~~~~~~~~~~~~~~~~~~~~~~~~~~~~~~~~~~~~~~~ Claudio Monteiro JACKY DIRECTOR OF GROUP COUNSELING PROGRAM [facility] documented in this encounter Visit Diagnoses Not on filedocumented in this encounter Administered Medications Inactive Administered Medications - up to 3 most recent administrations Medication Order MAR Action Action Date Dose Rate Site BUpivacaine (PF) (MARCAINE) 0.5 % (5 mg/mL) injection Starting on Tue06/19/19 at 0745, Until Tue06/19/19 at 0745, Anesthesia Intra-op, Routine Given 06/19/2019 7:45 AM EDT 2.5 mLs ceFAZolin (Ancef) 1 g vial attach to sodium chloride 0.9% 100 mL Mini-Bag Plus 1 g, Intravenous, EVERY 4 HOURS, First dose on Tue06/19/19 at 0700, Until Discontinued, Administer over 30 minutes, Redose after 4 hours., Intra-Operative (Intra-Procedure), Indication for (Active or Suspected): Prophylaxis New Bag 06/19/2019 7:37 AM EDT 2 g dexamethasone (DECADRON) injection PRN, Starting on Tue06/19/19 at 0754, Until Tue06/19/19 at 0921, Anesthesia Intra-op, Routine Given 06/19/2019 7:54 AM EDT 10 mg fentaNYL 50 mcg/mL multi-dose injection PRN, Starting on Tue06/19/19 at 0907, Until Tue06/19/19 at 0921, Anesthesia Intra-op, Routine Given 06/19/2019 9:07 AM EDT 25 mcg Given 06/19/2019 9:02 AM EDT 25 mcg lactated ringers infusion 1,000 mL, at 50 mL/hr, Intravenous, CONTINUOUS, Starting on Tue06/19/19 at 0700, Until Tue06/19/19 at 2012, Day of Surgery (Day of Procedure) New Bag 06/19/2019 8:31 AM EDT New Bag 06/19/2019 6:50 AM EDT 1,000 mLs 50 mL/hr lidocaine (PF) (XYLOCAINE) 100 mg/5 mL (2 %) injection PRN, Starting on Tue06/19/19 at 0746, Until Tue06/19/19 at 0921, Anesthesia Intra-op, Routine Given 06/19/2019 7:46 AM EDT 20 mg midazolam (PF) (VERSED) multi-dose injection PRN, Starting on Tue06/19/19 at 0737, Until Tue06/19/19 at 0921, Anesthesia Intra-op, Routine Given 06/19/2019 7:40 AM EDT 1 mg Given 06/19/2019 7:37 AM EDT 2 mg ondansetron (ZOFRAN) injection PRN, Starting on Tue06/19/19 at 0754, Until Tue06/19/19 at 0921, Anesthesia Intra-op, Routine Given 06/19/2019 7:54 AM EDT 4 mg propofol (DIPRIVAN) infusion CONTINUOUS PRN, Starting on Tue06/19/19 at 0746, Until Tue06/19/19 at 0921, Anesthesia Intra-op, Routine Rate/Dose Change 06/19/2019 8:57 AM EDT 25 mcg/kg/min 9.2 mL/hr Rate/Dose Change 06/19/2019 8:42 AM EDT 50 mcg/kg/min 18.4 mL/hr New Bag 06/19/2019 7:46 AM EDT 75 mcg/kg/min 27.5 mL/hr tranexamic acid (CYKLOKAPRON) 100 mg/mL bolus injection (Anesthesia) PRN, Starting on Tue06/19/19 at 0737, Until Tue06/19/19 at 0921, Anesthesia Intra-op, Routine Given 06/19/2019 7:37 AM EDT 1,000 mg documented in this encounter Care Teams Machine Learning Intern Relationship Specialty Start Date End Date Ritu Bolaños APRN [address] [place] [address] PCP - General 05/07/15 02/03/22 documented as of this encounter
--- OUTSIDE RECORDS SUMMARY | 2024-04-12 15:16 | XMS_ITS | Encounter Summary ---
Author Organization [facility] [place] [address] Care Team Providers Care Blueprint Blocker Name Role Phone Ritu Bolaños APRN Primary Care Provider [phone] Reason for Visit * Auth/Cert Specialty Diagnoses / Procedures Referred By Lennox t Referred To Contact Diagnoses Hip OA/DJD Procedures PRO TOTAL HIP ARTHROPLASTY @TOTAL HIP ARTHROPLASTY, ANTERIOR APPROACH (WRVU 20.72) MODIFIER SORTO & NEPHEW - R3 ACETABULAR CUP MODIFIER SORTO & NEPHEW - POLAR STEM CEMENTLESS Referral ID Status Reason Start Date Expiration Date Visits Re quested Visits Authorized [id number] 1 1 Encounter Details Date Type Department Care Team (Late st Contact Info) Description 06/19/2019 7:30 AM EDT - 06/19/2019 9:40 AM EDT Surgery Operating Room [address] [id number] [place] [address] TOTAL HIP ARTHROPLASTY, ANTERIOR APPROACH (WRVU 19.6) Social History Tobacco Use Types Packs/Day Years [...] Sign Reading Time Taken Comments Blood Pressure 78/49 06/19/2019 9:40 AM EDT Pulse 77 06/19/2019 9:16 AM EDT Temperature 36.5 ??C (97.7 ??F) 06/19/2019 9:16 AM ED T Respiratory Rate 15 06/19/2019 9:40 AM EDT Oxygen Saturation 100% 06/19/2019 9:40 AM EDT Inhaled Oxygen Concentration - - Weight 61.2 kg (135 lb) 06/19/2019 6:24 AM EDT Height 162.6 cm (5' 4) 06/19/2019 6:24 AM EDT Body Mass Index 23.17 06/19/2019 6:24 AM EDT documented in this encounter Medications at Time of Discharge Medication Sig Dispensed Refills Start Date End Date potassium chloride (K-DUR/KLOR-CON) 10 mEq Tablet Sustained Release Take 10 mEq by mouth daily. 0 04/21/2019 sertraline (ZOLOFT) 50 mg TabletIndications:Takes around 2pm Take 1 tablet by mouth every morning. Indications: Takes around 2pm 0 04/10/2019 celecoxib (CELEBREX) 200 mg Capsule Take 200 mg by mouth every morning. 1 05/03/2019 albuterol (PROVENTIL HFA) 90 mcg/actuation HFA Aerosol Inhaler 2 puffs every 4 hours as needed. albuterol (PROVENTIL) 2.5 mg /3 mL (0.083 %) Solution for NebulizationIndications :every 4 to 6 hours as needed Take 2.5 mg by nebulization. Indications: every 4 to 6 hours as needed fluticasone propionate (FLONASE) 50 mcg/actuation [place], Suspension 2 sprays by Each Nare route nightly. Magnesium Oxide 250 mg magnesium Tablet Take 2 tablets by mouth daily. multivitamin (THERAGRAN) Tablet Take 1 tablet by mouth daily. cephALEXin (KEFLEX) 500 mg Capsule Take 500 mg by mouth every 6 hours. For 5 days 0 06/14/2019 10/10/2019 acetaminophen (TYLENOL) 500 mg Tablet Take 2 tablets by mouth 3 times daily for 10 days. 60 tablet 06/21/2019 07/01/2019 oxyCODONE (ROXICODONE) 5 mg Tablet Take 1 tablet by mouth every 4 hours as needed for Pain. 30 tablet 06/21/2019 07/02/2019 senna-docusate (PERICOLACE) 8.6-50 mg Tablet Take 1 tablet by mouth daily. 60 tablet 11 06/21/2019 10/10/2019 mupirocin (BACTROBAN) 2 % Ointment Apply small amount into each nostril 2 times a day x 5 days prior to surgery 22 g 06/07/2019 06/21/2019 budesonide (PULMICORT FLEXHALER) 180 mcg/actuation Aerosol Powdr Breath Activated Inhale 1 puff into the lungs 2 times daily. 10/02/2020 montelukast (SINGULAIR) 10 mg Tablet Take 10 mg by mouth daily. 11/28/2019 salmeterol (SEREVENT DISKUS) 50 mcg/dose Disk with Device Inhale 1 puff into the lungs 2 times daily. 10/02/2020 loratadine (CLARITIN) 10 mg Tablet Take 10 mg by mouth daily as needed for Allergies. 01/24/2020 triamterene-hydrochloro thiazide (DYAZIDE) 37.5-25 mg Capsule Take 2 capsules by mouth daily. 06/21/2019 ferrous gluconate 240 mg (27 mg iron) Tablet Take 240 mg by mouth daily. 1 02/27/2019 11/28/2019 omeprazole (PRILOSEC) 40 mg Capsule, Delayed Release(E.C.) take 1 capsule by mouth twice a day 0 01/12/2019 11/28/2019 LAXATIVE PEG 3350 17 gram/dose Powder TAKE 17 GRAMS MIXED DIRECTED BY MOUTH ONCE TO THREE TIMES DAILY DIRECTED 1 02/22/2019 01/16/2020 alendronate (FOSAMAX) 70 mg TabletIndications:TAKES EITHER TUESDAY OR TUESDAY Take 70 mg by mouth every 7 days. Indications: TAKES EITHER TUESDAY OR Tuesday10/02/2018 05/06/2020 acetaminophen (TYLENOL) 325 mg Tablet Take 650 mg by mouth every 6 hours as needed for Pain. 06/21/2019 ubidecarenone/omega-3/v it E (CO [id number] E-FISH OIL ORAL) Take 1 tablet by mouth daily. 05/12/2021 documented as of this encounter Progress Notes * Eric Soto MD - 06/19/2019 8:12 PM EDT I am reviewing this patient's progress via EHR, I replaced her right hip yesterday at [facility], unremarkable surgery with average blood loss of about 400 cc. She had recurrent syncopal episodes, atrial fibrillation, and hypotension in the operating room and ultimately we decided on a transfer to after consulting with anesthesia and our hospitalist. I see this morning at radiographs show an intact hip replacement with no evidence of fracture. ACT scan was done, shows an appropriate sized hematoma, perhaps a little larger than normal but certainly not out of the norm for the study obtained today after surgery. This patient received aggressive fluid resuscitation in the PACU yesterday, almost 5 L of fluid, and while some of her drop in hemoglobin is undeniably due to acute blood loss secondary to surgery, there is also a significant dilutional component here. In the absence of clinical evidence of expanding hematoma in the thigh, treatment of the thigh should be to continue icing 24-7, and potentially acompressive wrap. I do not see a surgical indication here at this time. I will continue to follow her via her EHR. * Eric Soto MD - 06/19/2019 3:35 PM EDT Jigna Espinoza is post-op day 0 after right total hip arthroplasty. General appearance: AO x 3, pleasant mood, no distress. Problems post-operatively: 2 syncopal episodes after a run of AF. Has required gentle pressor support, occasional O2 by mask. Spinal has now worn off. On RA with O2 sats ranging from 85-100% at times at bedside in PACU. Anesthesia recovery to date: no nausea now, initially was nauseaous, no vomiting. Pain control good, some hip stiffness. Has eaten some snacks. Has not walked with nursing, Edmondson catheter is in, draining urine.. EXAM: Alert, oriented. Calves soft, negative Eliecer sign Bandage intact. Some thigh swelling (right), but not unusual or excessive, no expanding hematoma visible.. Vascular exam: extremities warm with intact pulses Neuro exam: Able to PF and DF bilaterally, calves soft, normal sensation. PLAN: Ice to hip continuously, analgesia as ordered. Given recurrent episodes of postop syncope after an otherwise unremarkable right JACQUIE, after discussion with our hospitalist (and anesthesia), it is felt that an echo to evaluate cardiac function is necessary. Unfortunately this requires transfer to since we have no vascular or cardiac imaging capabilities here at [facility]. Probable discharge depends on her course next 24 hours and any testing. * Claudio Monteiro CRNA - 06/19/2019 3:15 PM EDT Patient with several episodes of transient hypotension and nausea (one episode with with mild chestdiscomfort) in PACU S/P uneventful JACQUIE with spinal anesthetic this morning. During first episode patient was having atrial ectopy. With other episodes patient had some atrial ectopy and occasional ventricular ectopy. EKG reveals no changes from preoperative EKG and cardiac enzymes negative. Hemoglobin slightly decreased to 10 postoperatively. Electroytes are pending. Patient has been volume resuscitated and has received a couple doses of ephedrine 5 mg. But she continues to have transient hypotension with occasional nausea. Appreciate input from [facility] hospitalist. Case discussed with surgeon and hospitalist who are in agreement that patient should be transferred to [facility] for telemetry and echocardiogram. Dr. Elvis Harris has agreed to accept patient. Mrs. Espinoza is aware of the plan for transfer and is in agreement. We hope to have her return to [facility]. Will continue to follow patient. * Rossy Ford RN - 06/19/2019 3:13 PM EDT PACU recovery complicated by repeated episodes of hypotension, nausea, possible angina (chest tightness, heaviness, neck pain, L hand tingling and aching) all symptoms intermittent and unpredictable, with accompanying, varying cardiac rhythms, mostly sinus bradycardia, NSR, some PVCs&PACs, possible brief atrial tachycardia and afib, and sinus tachycardia.. Pt received repeated doses of ephedrine, fluid boluses, and postural support. In between episodes pt asymptomatic, comfortable. Pt currently awaiting transfer to [facility]. Spouse at bedside. Refer to doc flowsheets or details. Pt in recliner, declining most offering of food, has only had saltines and water since surgery. Awaiting transfer to [facility]. Continues to have episodes of sudden hypotension/nausea possibly triggered by pain, movement, po intake. Spouse at [facility]. Report to Fatuma High RN at the [facility] intermediate special care unit via telephone. Pt departed via ambulance stretcher (Mamie Reyna) see doc flowsheets for complete. * Janett Mcconnell RN - 06/19/2019 1:22 PM EDT Jigna Espinoza 74 y.o. 1945 Pt reported feeling of dizziness and lightheadedness, no EKG changes noted, pt was placed in trendelenburg position BP (!) 87/53 (BP Location (NBP): Right arm) Pulse 77 Temp 36.5 ??C (97.7 ??F) (Temporal) Resp12 Ht 162.6 cm (5' 4) Wt 61.2 kg (135 lb) SpO2 99% BMI 23.17 kg/m?? Vitals as noted at this time, anesthesia Claudio Kinsey TEACHER EMOTIONALLY IMPAIRED to bedside for support and gave 5mg of ephedrine IV for symptomatic hypotension. BP increased to 107/64 as a result, symptoms resolved with higher pressure per pt report. documented in this encounter H&P Notes * Eric Soto MD - 06/19/2019 7:34 AM EDT Patient Name: Jigna Espinoza Patient Age: 74 y.o. Birthdate: 1945 Admit date: 06/19/2019 Attending Physician: Eric Soto MD I have seen and examined the patient, there are no changes in the interval history and physical, ascompleted by the primary care physician, and there is no apparent contraindication to proceeding with surgery. The patient gives no history of fevers, infection or areas of open skin or mucosal wounds. * Dave Reed PA - 06/19/2019 7:23 AM EDT Patient Name: Jigna Espinoza Patient Age: 74 y.o. Birthdate: 1945 Admit date: 06/19/2019 Attending Physician: Eric Soto MD The patient's history and physical exam have been reviewed and completed. There has been no interval change from that of the pre-operative history and physical exam done within the last 30 days. documented in this encounter Miscellaneous Notes * Consult Note - Vitor Lugo CRNA - 06/19/2019 11:00 AM EDT Responded to [facility] for patient to find a AAOX3 pt in [facility] with profound hypotension following repeat vagal episode. Response zimmerman arrived shortly after. Fluid bolus underway, second per hospitalist. Pt remained without CP/discomfort and conversant throughout. Per bedside nursing no LOC or precipitating factors. Pt responded well to fluid. Appreciate hospitalist consult. Pt stable at this time, will continue to follow. * Consult Note - Vitor Lugo CRNA - 06/19/2019 10:32 AM EDT Called to bedside to eval patient for post operative chest discomfort after vagal episode. PT stable at this time. troponins ordered. EKG without changes. Pt reports having similar episodes at home when lying down. Hospitalist consulted, will continue to follow. * Op Note - Eric Soto MD - 06/19/2019 9:22 AM EDT [facility] Operative Note [facility] [address] [id number] Patient Name: Jigna Espinoza : [id number] MR#: [id number] Case Date: 06/19/2019 Surgery Start Time: 811 Surgery Stop Time: 907 Date: 06/19/2019 Surgeon: Eric Soto MD Dry Can Tender: DAQUAN Barrett Bean Picker: Claudio Monteiro CRNA Anesthesia: Spinal and sedation Pre-operative diagnosis: Right hip osteoarthritis, severe Body mass index is 23.17 kg/m??. Post-operative diagnosis: Same Surgical Procedure Performed: Injection right hip with weight-based marcaine 0.25% with epi, 10 mg morphine, ketorolac 30 mg, andExparel (20 mg) into skin, subcutaneous and deep tissues, and joint space. Right total hip arthroplasty, anterior Hueter approach with [place] table Right hip intraoperative radiologic examination Findings: Moderate osteopenia, severe OA with full-thickness cartilage loss Components Used: Sorto and Nephew Polarstem femoral system R3 acetabular system Bearing surface: ceramic on polyethylene Estimated Blood Loss: 450 cc Unexpected Events: None Weight bearing status: Weight bearing as tolerated Wound closure: Monocryl 3-0 and Dermaflex skin adhesive. No stitches or radha to remove. Dressing changes: Surgical dressing to be left in place for 5 days before removal. Follow-up Plan: In [facility] in 4 weeks post-operatively with new x-rays of operated joint. Anticoagulation: As per postop orders Possible barriers to discharge: None Plan for hospital stay: Standard Anticipated Length of Stay: 1 days. Special orders: No dislocation precautions, no abduction pillow. Please use SCDs on both legs This is a patient who has failed nonoperative treatment for severely symptomatic hip osteoarthrosis, including activity modification, pain and anti-inflammatory medications, and physical therapy. Patient continues to have significant activity limiting disability that is reducing quality of life. Prior to this procedure, informed consent was obtained and the patient was fully educated about surgical as well as nonoperative options. Patient understood the benefits of total hip arthroplasty as including a potential reduction of pain and improve joint function. Also understood were potential risks of infection, deep venous thrombosis, pulmonary embolus, stroke, fracture, continued pain or stiffness, bleeding, nerve or blood vessel injury, implant failure that may require further surgical procedures and possible cardiopulmonary morbidity or . Patient understood and elected to proceed with the following procedure. Technique: Patient was taken to the operating room and a spinal anesthetic was induced. According to AAOS recommendations, prophylactic antibiotics were administered within one hour of incision time, 1 g intravenous tranexamic acid. A timeout was performed. Patient was positioned supine on the [place] table, both feet and ankles were padded and then carefully placed in the traction boots. The perineal post wasalso padded with webril. The patient was then prepped and draped in the usual sterile manner using alcohol and then ChloroPrep. Hip Exposure and capsulotomy: We marked out a transverse incision over the anterior aspect of the hip, proceeding distally about 8 cm. Local anesthetic was infiltrated into the skin. Incision was then made and the subcutaneous fat was held apart with small self-retaining retractors. The fascia of the TFL was identified, infiltrated with local anesthetic and then cut longitudinally. The anterior extent of this fascia was held into Allis clamps. Using blunt dissection, the tensor fascia muscle was freed from surrounding tissues and, reflected posteriorly with a Autumn retractor. This exposed theanterior hip capsule, and the narrow femoral retractor was placed over the superior femoral neck, arounded Cobra retractor was placed inferiorly beneath the femoral neck. The perforating leashes of vessels (anterior circumflex artery and veins) were identified and carefully coagulated. The capsulewas then infiltrated with local anesthetic, and an L-shaped capsulotomy was then made with cautery,one limb in line with the superior femoral neck and the other at the base of the neck. Both neck retractors were then placed intracapsular, synovial fluid was suctioned and visible osteophytes were removed. Dislocation and femoral neck cut: The femoral neck was cut twice with a reciprocating saw, once at the anticipated resection site and once more proximally to assist with head removal. A corkscrew on power was then inserted into the femoral head. Four cranks of gross traction were placed on the operated leg, with 60 degrees external rotation, and this allowed distraction of the head from the socket. It also allowed for removal of the femoral head. Acetabular exposure and preparation: Curved retractors were placed anteriorly and posteriorly over the wall of the acetabulum. The femur was translated lateral and posterior to the acetabulum. This allowed excellent acetabular exposure, the labrum was then resected and reaming began at 48 mm. We proceeded incrementally up to 50 mm at which time we had circumferential bleeding bone. An acetabular component was placed and found to have excellent rim fit. No screws were placed. The component was then checked under fluoroscopic control, aiming for a lateral abduction of about 40??, and anteversion of about 20??. A liner was placed and impacted according to horse trekking guide's instructions. Any impinging osteophytes were removed. The socket was then thoroughly irrigated. Attention then turned to the femur. Femoral exposure: After removal of acetabular retractors, the traction was released and the femur was externally rotated to about 100??. The posterior quadrant of the femur was released including thecapsule over the mamillary process, allowing anterior mobilization of the femur. A Avitia retractor was then placed beneath the greater trochanter. A lateral and superior force was applied. This allowed the greater trochanter to disengage from the posterior column of the acetabulum and then to elevate the femur anteriorly. While holding the femur in this position, the positioning arm of the operated leg was dropped to full extension and maximal allowable adduction. No HANA hook was used. The fe mur was then held elevated, a femoral elevator was placed under the calcar and this was used to displace the femur superiorly and laterally. At the same time, the assistant foreman leaned against the thigh to optimize femoral adduction. At this point, special attention was turned to the soft tissues laterally to the resected femoral neck. A rongeur was used to remove any remnant of the femoral neck and we then proceeded to use a Bovie to reflect circumferentially the soft tissues around the resected neck. Finally, all remaining tissues in the piriformis fossa were resected using cautery, giving us a clear view of the entire resected neck footprint, as well as the piriformis fossa and the medialmostaspect of the greater trochanter. Femoral preparation: The rat-tail rasp and then the first broach was used to enter the femoral metaphysis in line with the posterior femoral cortex, at about 10?? of anteversion. The broach was used to enlarge the femoral opening, then broaching continued, applying a force against the greater trochanter to ascertain that the broach remained has fully lateral as possible with every pass. We proceeded with broaching incrementally until a size 3 was fully seated. We then used the calcar planer to resect any remaining calcar that extended proximal to the stem's final resting position. A trial neck and standard femoral head were placed, the Avitia retractor was disengaged and fully relaxed. The operated hip was then brought back into neutral position by bringing the leg out of adduction and extension. After neutral position was reestablished, about 90?? of external rotation were placed on the operated leg followed by 2 cranks of gross traction. The acetabulum was irrigated and cleared of all debris, the hip was then internally rotated to 30?? internal rotation. This allowed easy reduction of the hip. Full rotational range of motion was tested, confirming that there was no impingement of the femoral neck against the acetabular component either anteriorly or posteriorly. Fluoroscopic imaging was used to confirm proper offset and leg length as well as femoral broach position. At this point, 2 cranks of gross traction were placed on the operated leg, again the hip was externally rotated to about 90?? external rotation allowing easy dislocation. All traction was released, and the proximal femur was elevated and pulled laterally. The position of adduction and hip extension was reestablished by moving the positioning arm on the operated leg and then externally rotating the femur to about 90??. Again, the femur was lateralized and lifted, the Avitia retractor was then engaged to support this position. All trial implants were removed, the femoral canal was gently irrigated, the actual femoral implant was then inserted with gentle taps from a mallet, and the femoral head was then impacted on the clean trunion. Again, the proximal femur was lowered, the Avitia retractor wasremoved and the leg was brought back to a neutral position, 2 cranks of traction along with 30?? ofexternal rotation were followed by internal rotation to 20?? and release of traction which allowed reduction of the hip joint. Stability testing was carried out to confirm non-dislocatability, and leg length optimization was confirmed with flouroscopy. Closure: After thorough irrigation, and coagulation of any visible bleeders, the capsule was repaired with interrupted tensor fascia daniel muscle was allowed to come back to its anatomic position and irrigated, and a running Quill #2 suture was used to close the fascia. Fat was closed with inverted Vicryl zero, more superficially with Vicryl 2-0 and then Monocryl and Dermabond were used to close skin, and a dry sterile 4 x 4 dressing was applied and covered with Tegaderm. All counts were correct. Patient was transferred back to the hospital bed from the [place] table and boots were removed. No abduction pillow was placed. The patient returned to the recovery room in stable condition. The psychology assistant, DAQUAN Barrett, worked under my direction for the duration of the operativesession. The assistant foreman meticulously prepped the operative site and maintained the best possible exposure of anatomy incident to the procedure for its duration. Implant Information: Implant Name Type Inv. Item Serial No. Sales Outfitter Lot No. LRB No. Used Action CUP,HIP,ACETAB,DAVID,R3,3H,50MM ([id number]) (AutoReq) - [id number] IMPLANTS CUP,HIP,ACETAB,DAVID,R3,3H,50MM ([id number]) (AutoReq) SORTO & NEPHEW - SORTO NEPH [id number] Right 1 Implanted LINER,R3,0D,XLPE,ACETB,[id number] ([id number]) (AutoReq) - [id number] IMPLANTS LINER,R3,0D,XLPE,ACETB,[id number] ([id number]) (AutoReq) SORTO & NEPHEW - SORTO NEPH [id number] Right 1 Implanted POLARSTEM CONE WCOL 1214 SZ3 ([id number]) (AutoReq) - [id number] IMPLANTS POLARSTEM CONE WCOL 1214 SZ3([id number]) (AutoReq) SORTO & NEPHEW - SORTO NEPH [id number] Right 1 Implanted HEAD,FMRL,OXIN,+0MM,12/14,32MM ([id number]) (AutoReq) - [id number] IMPLANTS HEAD,FMRL,OXIN,+0MM,12/14,32MM ([id number]) (AutoReq) SORTO & NEPHEW - SORTO NEPH [id number] Right 1 Implanted TG 2 RG 1 documented in this encounter Plan of Treatment Not on file documented as of this encounter Procedures Procedure Name Priority Date/Time Associated Diagnosis Comments HC TROPONIN T STAT 06/19/2019 5:18 PM EDT HC MAGNESIUM, SERUM Routine 06/19/2019 3 :13 PM EDT BASIC METABOLIC PANEL (NON-FASTING) Routine 06/19/2019 3:13 PM EDT HEMOGRAM Routine 06/19/2019 11:22 AM EDT DIFFERENTIAL, AUTOMATED Routine 06/19/2019 11:22 AM EDT HC CBC,PLT & AUTO DIFF Routine 06/19/2019 11:22 AM EDT HC TROPONIN T STAT 06/19/2019 10:40 AM EDT EKG 12-LEAD STAT 06/19/2019 10:32 AM EDT Pain in right hip XR FLUORO NO RAD <1HR - OR USE Routine 06/19/2019 9:44 AM EDT EKG 12-LEAD STAT 06/19/2019 9:42 AM EDT Pain in right hip MODIFIER SORTO & NEPHEW - POLAR STEM CEMENTLESS 06/19/2019 7:38 AM EDT Primary osteoarthritis of right hip MODIFIER SORTO & NEPHEW - R3 ACETABULAR CUP 06/19/2019 7:38 AM EDT Primary osteoarthritis of right hip Arthroplasty Acetabular/Prox Fem Prostc Agrft/Algrft ([id number]) 06/19/2019 7:38 AM EDT Primary osteoarthritis of right hip SCAN DOC: TELEMETRY STRIPS 06/19/2019 12:00 AM EDT documented in this encounter Results * Troponin (06/19/2019 5:18 PM EDT) Pathologist [facility] Troponin-T <0.01 0.00 - 0.00 ng/mL [facility] Blood specimen (specimen) 06/19/2019 5:18 PM EDT 06/19/2019 5:18 PM EDT Narrative Resulting Agency Comment Spec In Lab / APD Claudio Monteiro CRNA CHEMISTRY ORDERABLES [facility] [address] [place] [address] * (ABNORMAL) Basic Metabolic Panel (non-fasting) (06/19/2019 3:13 PM EDT) Pathologist [facility] Glucose Lvl 120 65 - 199 mg/dL LAB[facility]ORY Comment:Diabetes: >=200 mg/d L plus symptoms BUN 13 8 - 18 mg/dL [facility] Creatinine 0.69(L) 0.70 - 1.20 mg/dL [facility] Sodium 134(L) 135 - 145 mmol/L [facility] Potassium 3.8 3.5 - 5.0 mmol/L [facility] Comment: Please [...] 12 5 - 15 mmol/L [facility] Calcium 9.0 8.5 - 10.5 mg/dL [facility] Estimated GFR 85 >=60 mL/min/1. 73 m?? [facility] Comment: The eGFR was calculated using the CKD-EPI equation. As with all creatinine based estimates of kidney function, eGFR values calculated with the CKD-EPI equation are not accurate in patients with acute kidney failure, extremes of body mass or the acutely ill. [email or web address] eGFR 99 >=60 mL/min/1. 73 m?? [facility] Comment: The eGFR was calculated using the CKD-EPI equation. As with all creatinine based estimates of kidney function, eGFR values calculated with the CKD-EPI equation are not accurate in patients with acute kidney failure, extremes of body mass or the acutely ill. [email or web address] Blood specimen (specimen) 06/19/2019 3:13 PM EDT 06/19/2019 3:13 PM EDT Narrative Resulting Agency Comment Spec In Lab / APD Claudio Monteiro CRNA CHEMISTRY ORDERABLES [facility] [address] [place] [address] * Magnesium (06/19/2019 3:13 PM EDT) Magnesium 0.80 0.69 - 1.07 mmol/L [facility] Blood specimen (specimen) 06/19/2019 3:13 PM EDT 06/19/2019 3:13 PM EDT Narrative Resulting Agency Comment Spec In Lab / APD Claudio Foster [facility] CHEMISTRY ORDERABLES [facility] [address] [place] [address] * (ABNORMAL) Differential, Automated (06/19/2019 11:22 AM EDT) Neutrophils % 88.4 % [facility] Neutr Abs (ANC) 8.28(H) 1.70 - 6.10 x10(3)/mc L [facility] Lymphocytes % 7.8 % [facility] Lymphocytes Abs 0.7(L) 0.9 - 3.2 x10(3)/mc L [facility] Monocytes % 2.2 % [facility] Monocyte Abs 0.2(L) 0.3 - 0.9 x10(3)/mc L [facility] Eosinophils % 0.9 % [facility] Eosinophils Abs 0.1 0.0 - 0.4 x10(3)/mc L [facility] Basophils % 0.3 % [facility] Basophils Abs 0.0 0.0 - 0.1 x10(3)/mc L [facility] Immature Gran % 0.40 % [facility] Comment: Immature granulocytes(IG's)percentage and absolute count will include metamyelocytes, myelocytes, and promyelocytes. Blood smears from CBCs yielding IG's will be scanned manually for concordance. If this scan disagrees with the automated IG or if promyelocytes are noted, a manual differential will be performed. Estefany Gran Abs 0.04 0.00 - 0.04 x10(3)/mc L [facility] Blood specimen (specimen) 06/19/2019 11:22 AM EDT 06/19/2019 11:22 AM EDT Narrative Resulting Agency Comment Spec In Lab / APD Kevin Hogan MD HEMATOLOGY ORDERABLE S Performing Organization Address [facility] Co de Phone Number [facility] [address] [place] [address] * (ABNORMAL) Hemogram (06/19/2019 11:22 AM EDT) WBC 9.7(H) 4.0 - 9.5 x10(3)/mcL [facility] RBC 3.30(L) 4.00 - 5.21 x10(6)/mcL [facility] Hemoglobin 10.4(L) 11.7 - 15.5 gm/dL [facility] Hematocrit 30.1(L) 35.7 - 45.8 % [facility] MCV 91.2 82.6 - 94.4 fL [facility] MCH 31.5 27.1 - 32.0 pg [facility] MCHC 34.6 31.7 - 35.0 gm/dL [facility] Platelets 227 145 - 357 x10(3)/mcL [facility] RDWSD 44.1 37.0 - 46.0 fL [facility] RDWCV 13.0 11.5 - 14.1 % [facility] MPV 10.2 7.6 - 12.9 fL [facility] Blood specimen (specimen) 06/19/2019 11:22 AM EDT 06/19/2019 11:22 AM EDT Narrative Resulting Agency Comment Spec In Lab / APD Kevin Hogan MD HEMATOLOGY ORDERABLE S Performing Organization Address [facility]/ZIP Co de Phone Number [facility] [address] [place] [address] * Troponin (06/19/2019 10:40 AM EDT) Troponin-T <0.01 0.00 - 0.00 ng/mL [facility] Blood specimen (specimen) 06/19/2019 10:40 AM EDT 06/19/2019 10:56 AM EDT Narrative Resulting Agency Comment Spec In Lab / APD Claudio Monteiro CRNA CHEMISTRY ORDERABLES Performing Organization Address [facility] de Phone Number [facility] [address] [place] [address] * EKG 12 Lead (06/19/2019 10:32 AM EDT) Ventricular rate 67 BPM MUSE SYSTEM Atrial Rate 67 BPM MUSE SYSTEM P-R Interval 170 ms MUSE SYSTEM QRS Duration 80 ms MUSE SYSTEM Q-T Interval 426 ms MUSE SYSTEM QTC Calculated (Bezet) 450 ms MUSE SYSTEM Calculated P [place] 74 degrees MUSE SYSTEM Calculated R [place] -67 degrees MUSE SYSTEM Calculated T [place] 48 degrees MUSE SYSTEM INTERPRETATION Normal sinus rhythm Left axis deviation Inferior infarct (cited on or before 19-JUN-2019) Anteroseptal infarct (cited on or before 19-JUN-2019) Abnormal ECG When compared with ECG of 19-JUN-2019 09:42, Premature ventricular complexes are no longer Present Confirmed by MD Ted, Kwame ([id number]) on 06/19/2019 4:03:23 PM MUSE SYSTEM 06/19/2019 10:3 2 AM EDT 06/19/2019 4:03 PM EDT Claudio Monteiro TEACHER EMOTIONALLY IMPAIRED ECG ORDERABLES Performing Organization Address [facility] de Phone Number MUSE SYSTEM * XR Fluoro No Rad <1Hr - OR Use (06/19/2019 9:44 AM EDT) Narrative RAD - 06/19/2019 9:45 AM EDT This exam is auto-finalizing. No interpretation was done. Eric Soto MD IMG FLUORO ORDERABLE S Performing Organization Address [facility] de Phone Number [place], [place] * EKG 12 Lead (06/19/2019 9:42 AM EDT) Ventricular rate 70 BPM MUSE SYSTEM Atrial Rate 70 BPM MUSE SYSTEM P-R Interval 170 ms MUSE SYSTEM QRS Duration 80 ms MUSE SYSTEM Q-T Interval 432 ms MUSE SYSTEM QTC Calculated (Bezet) 466 ms MUSE SYSTEM Calculated P [place] 80 degrees MUSE SYSTEM Calculated R [place] -68 degrees MUSE SYSTEM Calculated T [place] 40 degrees MUSE SYSTEM INTERPRETATION Sinus rhythm Occasional Premature ventricular complexes Left axis deviation Inferior infarct , age undetermined Anteroseptal infarct , age undetermined Abnormal ECG When compared with ECG of 06-MAR-1993 14:27, Premature ventricular complexes are now Present Anteroseptal infarct is now Present Inferior infarct is now Present Nonspecific T wave abnormality now evident in Inferior leads Confirmed by MD Ted, Kwame ([id number]) on 06/19/2019 4:02:01 PM MUSE SYSTEM 06/19/2019 9:42 AM EDT 06/19/2019 4:02 PM EDT Claudio Monteiro CRNA ECG ORDERABLES MUSE SYSTEM * SCAN DOC: TELEMETRY STRIPS (06/19/2019 12:00 AM EDT) Narrative 06/19/2019 12:00 AM EDT Ordered by an unspecified provider. Scanning Provider MEDIA MGR SCAN EXT O RDR/RSLT documented in this encounter Visit Diagnoses Diagnosis Pain in right hip Pain in joint, pelvic region and thigh Status post total hip replacement, right Primary osteoarthritis of right hip Primary localized osteoarthrosis, pelvic region and thigh documented in this encounter Admitting Diagnoses Diagnosis Status post total hip replacement, right documented in this encounter Administered Medications Inactive Administered Medications - up to 3 most recent administrations Medication Order MAR Action Action Date Dose Rate Site bacitracin injection ONCE PRN, Starting on Tue06/19/19 at 0817, Until Tue06/19/19 at 2009, Intra-Operative (Intra-Procedure), Routine Given 06/19/2019 8:17 AM EDT 50,000 Units 19- Surgical Site BUpivacaine liposome (PF) (EXPAREL) 1.3 % (13.3 mg/mL) injection for infiltration ONCE PRN, Starting on Tue06/19/19 at 0815, Until Tue06/19/19 at 2009, Intra-Operative (Intra-Procedure) Given 06/19/2019 8:15 AM EDT 20 mLs 19- Surgical Site BUpivacaine-EPINEPHri ne 0.25 %-1:200,000 injection ONCE PRN, Starting on Tue06/19/19 at 0815, Until Tue06/19/19 at 2009, Intra-Operative (Intra-Procedure), Routine Given 06/19/2019 8:15 AM EDT 50 mLs 19- Surgical Site cloNIDine injection ONCE PRN, Starting on Tue06/19/19 at 0815, Until Tue06/19/19 at 2009, Intra-Operative (Intra-Procedure), Routine Given 06/19/2019 8:15 AM EDT 10 mcg 19- Surgical Site ketorolac (TORADOL) injection ONCE PRN, Starting on Tue06/19/19 at 0815, Until Tue06/19/19 at 2009, Intra-Operative (Intra-Procedure), Routine Given 06/19/2019 8:15 AM EDT 30 mg 19- Surgical Site morphine 10 mg/mL injection ONCE PRN, Starting on Tue06/19/19 at 0815, Until Tue06/19/19 at 2009, Intra-Operative (Intra-Procedure), Routine Given 06/19/2019 8:15 AM EDT 10 mg 20-Other (document in comment section) documented in this encounter Active and Recently Administered Medications Times are shown in EDT. Scheduled Medication Order 06/17/2019 06/18/2019 06/19/2019 ceFAZolin (Ancef) 1 g vial attach to sodium chloride 0.9% 100 mL Mini-Bag Plus (CANCELED)(Linked Group 1) 1 g, Intravenous, EVERY 4 HOURS, First dose on Tue06/19/19 at 0700, Until Discontinued, Administer over 30 minutes, Redose after 4 hours., Intra-Operative (Intra-Procedure), Indication for (Active or Suspected): Prophylaxis 0737 (New Bag - Prov ider: Claudio Monteiro CRNA)1100 (Due)1500 (Due)1900 (Due) famotidine (PEPCID) injection 20 mg (COMPLETED) 20 mg, Intravenous, ONCE, 1 dose, On Tue06/19/19 at 0700, Day of Surgery (Day of Procedure), Routine 0652 (Given - Provid er: Christal Paula RN) Continuous Medication Order 06/17/2019 06/18/2019 06/19/2019 lactated ringers infusion (CANCELED) 1,000 mL, at 50 mL/hr, Intravenous, CONTINUOUS, Starting on Tue06/19/19 at 0700, Until Tue06/19/19 at 2011, Day of Surgery (Day of Procedure) 0650 (New Bag - Prov ider: Christal Paula RN)0831 (New Bag - Provider: Claudio Monteiro CRNA)0906 (Anesthesia Volume Adjustment - Provider: Claudio Monteiro CRNA) sodium chloride 0.9% infusion (CANCELED) 200 mL/hr, Intravenous, CONTINUOUS, Starting on Tue06/19/19 at 1245, Until Tue06/19/19 at 2011, PACU Recovery 1110 (New Bag - Prov ider: Rossy Ford RN - Comment: hypotesion, code medical) PRN Medication Order 06/17/2019 06/18/2019 06/19/2019 bacitracin injection (CANCELED) ONCE PRN, Starting on Tue06/19/19 at 0817, Until Tue06/19/19 at 2009, Intra-Operative (Intra-Procedure), Routine 0817 (Given - Provid er: Eric Soto MD) BUpivacaine liposome (PF) (EXPAREL) 1.3 % (13.3 mg/mL) injection for infiltration (CANCELED) ONCE PRN, Starting on Tue06/19/19 at 0815, Until Tue06/19/19 at 2009, Intra-Operative (Intra-Procedure) 0815 (Given - Provid er: Eric Soto MD - Comment: Combination: 20ml Exparel 50ml - 0.25% Bupivacaine with epi 1:200,000 10mcg - Clonidine 30mg Ketorolac 10mg - Morphine) BUpivacaine-EPINEPHrine 0.25 %-1:200,000 injection (CANCELED) ONCE PRN, Starting on Tue06/19/19 at 0815, Until Tue06/19/19 at 2009, Intra-Operative (Intra-Procedure), Routine 0815 (Given - Provid er: Eric Soto MD - Comment: Combination: 20ml Exparel 50ml - 0.25% Bupivacaine with epi 1:200,000 10mcg - Clonidine 30mg Ketorolac 10mg - Morphine) cloNIDine injection (CANCELED) ONCE PRN, Starting on Tue06/19/19 at 0815, Until Tue06/19/19 at 2009, Intra-Operative (Intra-Procedure), Routine 0815 (Given - Provid er: Eric Soto MD - Comment: Combination: 20ml Exparel 50ml - 0.25% Bupivacaine with epi 1:200,000 10mcg - Clonidine 30mg Ketorolac 10mg - Morphine) fentaNYL 50 mcg/mL multi-dose injection (CANCELED) 12.5-25 mcg, Intravenous, EVERY 5 MIN PRN, Starting on Tue06/19/19 at 0924, Until Tue06/19/19 at 2011, Pain, Give 12.5 mcg every 5 minutes PRN for mild to moderate pain (1-5) Give 25 mcg every 5 minutes PRN for moderate to severe pain (6-10). Hold for respiratory rate less than 10 per minute. Maximum dose 250 mcg over one hour. If ordered with hydromorphone or morphine, give hydromorphone or morphine first and use fentanyl for breakthrough pain., PACU Recovery, Routine 1626 (Given - Provid er: Rossy Ford RN)1807 (Given - Provider: Rossy Ford RN)1855 (Given - Provider: Rossy Ford RN)1926 (Given - Provider: Rossy Ford RN) ketorolac (TORADOL) injection (CANCELED) ONCE PRN, Starting on Tue06/19/19 at 0815, Until Tue06/19/19 at 2009, Intra-Operative (Intra-Procedure), Routine 08 (Given - Provid er: Eric Soto MD - Comment: Combination: 20ml Exparel 50ml - 0.25% Bupivacaine with epi 1:200,000 10mcg - Clonidine 30mg Ketorolac 10mg - Morphine) morphine 10 mg/mL injection (CANCELED) ONCE PRN, Starting on Tue06/19/19 at 0815, Until Tue06/19/19 at 2009, Intra-Operative (Intra-Procedure), Routine 0815 (Given - Provid er: Eric Soto MD - Comment: Combination: 20ml Exparel 50ml - 0.25% Bupivacaine with epi 1:200,000 10mcg - Clonidine 30mg Ketorolac 10mg - Morphine) ondansetron (ZOFRAN) injection 4 mg (CANCELED) 4 mg, Intravenous, EVERY 30 MIN PRN, Starting on Tue06/19/19 at 0924, Until Tue06/19/19 at 2011, Nausea, May repeat 4 mg once in 30 minutes. If multiple antiemetics ordered, use ondansetron first and if ineffective use prochlorperazine second and if ineffective use promethazine, PACU Recovery, Routine 0936 (Given - Provid er: Rossy Ford RN) Linked Groups Order Group 1: ceFAZolin (Ancef) 1 g vial attach to sodium chloride 0.9% 100 mL Mini-Bag Plus (CANCELED)Jump to med 1 g, Intravenous, EVERY 4 HOURS, First dose on Tue06/19/19 at 0700, Until Discontinued, Administer over 30 minutes, Redose after 4 hours., Intra-Operative (Intra-Procedure), Indication for (Active or Suspected): Prophylaxis And ceFAZolin (Ancef) 1 g vial attach to sodium chloride 0.9% 100 mL Mini-Bag Plus (CANCELED) 1 g, Intravenous, EVERY 4 HOURS, First dose on Tue06/19/19 at 0700, Until Discontinued, Administer over 30 minutes, Redose after 4 hours., Intra-Operative (Intra-Procedure), Indication for (Active or Suspected): Prophylaxis documented in this encounter Care Teams Blueprint Blocker Relationship Specialty Start Date End Date Ritu Bolaños APRN [address] [place] [address] PCP - General 05/07/15 02/03/22 documented as of this encounter
--- OUTSIDE RECORDS SUMMARY | 2024-04-12 15:16 | XMS_ITS | Encounter Summary ---
Author Organization [facility] [place] [address] Care Team Providers Care Tissue Specialist Name Role Phone Ritu Bolaños APRN Primary Care Provider [phone]- [phone] Encounter Details Date Type Department Care Team (Late st Contact Info) Description 06/20/2019 Notes Only Orthopaedics at [address] [phone] Eric Soto MD [address] [facility] [place] [address] Social History Tobacco Use Types Packs/Day Years [...] Progress Notes * Eric Soto MD - 06/20/2019 12:27 PM EDT Date of Note: Jun 20, 2019 @12:26 pm. I am reviewing this patient's progress via EHR, I replaced her right hip yesterday at [facility] AT [facility], unremarkable surgery with average blood loss of [...] continue to follow her via her EHR. documented in this encounter Plan of Treatment Not on file documented as of this encounter Visit Diagnoses Not on filedocumented in this encounter Care Teams Tissue Specialist Relationship Specialty Start Date End Date Ritu Bolaños APRN [address] [place] [address] PCP - General 05/07/15 02/03/22 documented as of this encounter
--- OUTSIDE RECORDS SUMMARY | 2024-04-12 15:16 | XMS_ITS | Encounter Summary ---
Author Organization [facility] [place] [address] Care Team Providers Care Coding And Reimbursement Specialist Name Role Phone Ritu Bolaños APRN Primary Care Provider [phone]- [phone] Reason for Referral * Consultation (Routine) - Closed Specialty Diagnoses / Procedures Referred By Lennox jaramillo Referred To Contact Family Medicine Diagnoses Primary osteoarthritis of right hip Encounter for pre-operative laboratory testing Eric Soto MD [address] [place] [address] Ritu Bolaños APRN [address] [place] [id number] Referral ID Status Reason Start Date Expiration Date V isits Requested Visits Authorized [id number] Closed Consult, Test & Treat 03/27/2019 09/23/2019 1 1 Encounter Details Date Type Department Care Team (Late st Contact Info) Description 03/27/2019 Orders Only Orthopaedics at [address] [phone] Eric Soto MD [address] [place] [phone] Primary osteoarthritis of right hip; Encounter for [...] to General Internal Medicine Outpatient Referral Routine Primary osteoarthritis of right hip Encounter for pre-operative laboratory testing Ordered: 03/27/2019 documented as of this encounter Results * (ABNORMAL) Comprehensive metabolic panel (non-fasting) (06/08/2019 1:02 PM EDT) Glucose Lvl 105 65 - 199 mg/dL LABORATORY Comment:Diabetes: >=200 mg/d L plus symptoms BUN 16 8 - 18 mg/dL [facility] Creatinine 0.69(L) [...] of body mass or the acutely ill. [email or web address] eGFR 99 >=60 mL/min/1. 73 m?? [facility] Comment: The eGFR was calculated using the CKD-EPI equation. As with all creatinine based estimates of kidney function, eGFR values calculated with the CKD-EPI equation are not accurate in patients with acute kidney failure, extremes of body mass or the acutely ill. [email or web address] Blood specimen (specimen) 06/08/2019 1:02 PM EDT 06/08/2019 2:13 PM EDT Narrative Resulting Agency Comment Spec In Lab / APD Eric Soto MD CHEMISTRY ORDERABLES Performing Organization Address City/[facility]/ZIP Co de Phone Number [facility] [address] [place] [address] * Staph aureus/MRSA Culture Screen Nasal (06/08/2019 1:02 PM EDT) Staphylococcus Screening Culture No Staphylococcus aureus isolated [facility] Specimen from nose (specimen) 06/08/2019 1:02 PM EDT 06/08/2019 3:54 PM EDT Narrative Resulting Agency Comment Spec In Lab / APD Authorizing Provider Result Pb Soto MD MICROBIOLOGY - GENER AL ORDERABLES Performing Organization Address City/[facility]/ZIP Co de Phone Number [facility] [place] [address] documented in this encounter Visit Diagnoses Diagnosis Primary osteoarthritis of right hip Primary localized osteoarthrosis, pelvic region and thigh Encounter for pre-operative laboratory testing Preoperative examination, unspecified documented in this encounter Care Teams Coding And Reimbursement Specialist Relationship Specialty Start Date End Date Ritu Bolaños APRN [address] [place] [phone] PCP - General 05/07/15 02/03/22 documented as of this encounter
--- OUTSIDE RECORDS SUMMARY | 2024-04-12 15:16 | XMS_ITS | Encounter Summary ---
[place] [address] Care Team Providers Care Sound Installation Worker Name Role Phone Mami Ritu RAEANN Primary Care Provider [phone]- [phone] Reason for Referral * Diagnostic Test (Routine) - Closed Specialty Diagnoses / Procedures Referred By Contac t Referred To Contact Radiology Diagnoses Spinal stenosis of lumbar region, unspecified whether neurogenic claudication present Procedures CT Guided Injection SI Joint Jerome Fontanez MD [address] [place] [address] [facility] [place] [address] Referral ID Status Reason Start Date Expiration Date V isits Requested Visits Authorized [id number] Closed Specialty Service Requested 12/25/2018 12/25/2019 1 1 Reason for Visit * Diagnostic Test (Routine) - Closed Specialty Diagnoses / Procedures Referred By Contac t Referred To Contact Radiology Diagnoses Spinal stenosis of lumbar region, unspecified whether neurogenic claudication present Procedures CT Guided Injection SI Joint Jerome Fontanez MD [address] [place] [address] [facility] [place] [address] Referral ID Status Reason Start Date Expiration Date V isits Requested Visits Authorized [id number] Closed Specialty Service Requested 12/25/2018 12/25/2019 1 1 Encounter Details Date Type Department Care Team (Latest Contact Info) Description 01/30/2019 7:59 AM EDT - 01/30/2019 11:59 PM EDT Hospital En[place] [id number] Jerome Fontanez MD [address] [place] [id number] Spinal stenosis of lumbar region, unspecified whether neurogenic claudication present Discharge Disposition: Home Social History Tobacco Use Types Packs/Day Years Used Date Smoking Tobacco: Never Assessed Sex and Gender Information Value Date Recorded Sex Assigned at Not on file Gender Identity Female 09/25/2020 7:37 PM EST Sexual Orientation Not on file documented as of this encounter Medications at Time of Discharge Medication Sig Dispensed Refills Start Date End Date omeprazole (PRILOSEC) 40 mg Capsule, Delayed Release(E.C.) take 1 capsule by mouth twice a day 0 01/12/2019 11/28/2019 alendronate (FOSAMAX) 70 mg TabletIndications:TAKES EITHER TUESDAY OR TUESDAY Take 70 mg by mouth every 7 days. Indications: TAKES EITHER TUESDAY OR Tuesday10/02/2018 05/06/2020 documented as of this encounter Plan of Treatment Not on file documented as of this encounter Procedures Procedure Name Priority Date/Time Associated Diagnosis Comments CT GUIDED INJECTION SI JOINT Routine 01/30/2019 9:55 AM EDT Spinal stenosis of lumbar region, unspecified whether neurogenic claudication present documented in this encounter Results * CT Guided Injection SI Joint (01/30/2019 9:55 AM EDT) Anatomical Region Laterality Modality Computed Tomogra phy Impressions 01/30/2019 10:45 AM EDT Uneventful left sacroiliac joint injection under CT Resident/ Fellow: Laura Lewis. I, Dr. corbett, present for the entire procedure. Attending: I have personally reviewed the image(s) and the residents interpretation and agree with the findings, Beto Corbett at 01/30/2019 10:45 AM Thank you for letting us participate in the care of this patient. For questions regarding this report, please contact the number below. ? Narrative 01/30/2019 10:[address] GUIDED left sacroiliac joint INJECTION HISTORY: Left SI joint injection; dx/tx outside order in scanned docs; NO PA REQ TECHNIQUE: After an extensive conversation with the patient regarding risks and benefits, oral and written consent were obtained.? A pre- procedural time-out was performed, including review of the patient's relevant electronic medical record and allergies, as per [facility] [place] [place] protocol. The patient was placed prone on the CT table. ??Axial images of the sacroiliac joints were acquired. The needle entry site was marked using CT guidance. The skin overlying the left sacroiliac joint was prepped and draped in the usual aseptic manner. 1% Lidocaine was used to achieve local anesthesia. Under CT guidance, a 20G spinal needle was advanced into the left sacroiliac joint. ??The location of the needle tip was documented on axial CT images. ??A mixture of Lidocaine and depomedrol was injected. All needles removed at end of procedure and hemostasis achieved. FINDINGS: 1. ??Needle tip positioned within the left sacroiliac joint. 2. ??PAIN SCORE: ??Before: 5/10 ??After: 0/10 3. Medications: ??Lidocaine 1% - <5 ml, for subcutaneous anesthesia Depomedrol: 20 mg 4. 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 Advanced disc and facet degenerative changes in the lower lumbar spine. COMPLICATIONS: ??None immediate. POST-PROCEDURE CARE: Information regarding monitor of infection, post- procedural pain and management of steroid flare were reviewed with patient. Procedure Note Beto Corbett MD - 01/30/2019 CT GUIDED left sacroiliac joint INJECTION HISTORY: Left SI joint injection; dx/tx outside order in scanned docs; NO PA REQ TECHNIQUE: After an extensive conversation with the patient regarding risks andbenefits, oral and written consent were obtained.? A pre- procedural time-out was performed, including review of the patient's relevant electronic medicalrecord and allergies, as per [facility] [place] [place] protocol. The patient was placed prone on the CT table. Axial images of thesacroiliac joints were acquired. The needle entry site was marked using CTguidance. The skin overlying the left sacroiliac joint was prepped and draped in theusual aseptic manner. 1% Lidocaine was used to achieve local anesthesia. UnderCT guidance, a 20G spinal needle was advanced into the left sacroiliac joint.The location of the needle tip was documented on axial CT images. A mixtureof Lidocaine and depomedrol was injected. All needles removed at end ofprocedure and hemostasis achieved. FINDINGS: 1. Needle tip positioned within the left sacroiliac joint. 2. PAIN SCORE: Before: 5/10 After: 0/10 3. Medications: Lidocaine 1% - <5 ml, for subcutaneous anesthesia Depomedrol: 20 mg 4. Mild to moderate sacroiliac joint arthropathy characterized bymarginal osteophyte and subchondral sclerosis. Advanced disc and facetdegenerative changes in the lower lumbar spine. COMPLICATIONS: None immediate. POST-PROCEDURE CARE: Information regarding monitor of infection, post- procedural pain and management of steroid flare were reviewed withpatient. IMPRESSION Uneventful left sacroiliac joint injection under CT Resident/ Fellow: Laura Lewis. I, Dr. corbett, present for the entire procedure. Attending: I have personally reviewed the image(s) and the residents interpretationand agree with the findings, Beto Corbett at 01/30/2019 10:45 AM Thank you for letting us participate in the care of this patient. Forquestions regarding this report, please contact the number below. Jerome Fontanez MD IMG CT ORDERABLES documented in this encounter Visit Diagnoses Diagnosis Spinal stenosis of lumbar region, unspecified whether neurogenic claudication present documented in this encounter Administered Medications Inactive Administered Medications - up to 3 most recent administrations Medication Order MAR Action Action Date Dose Rate Site methylPREDNISolone acetate (DEPO-Medrol) injection 80 mg 80 mg, Intra-articular, ONCE, 1 dose, On Tue01/30/19 at 1015, Routine Given 01/30/2019 10:15 AM EDT 80 mg documented in this encounter Care Teams Sound Installation Worker Relationship Specialty Start Date End Date Ritu Bolaños APRN [address] [place] [address] PCP - General 05/07/15 02/03/22 documented as of this encounter
--- OUTSIDE RECORDS SUMMARY | 2024-04-12 15:16 | XMS_ITS | Encounter Summary ---
Author Organization [facility] [place] [address] Care Team Providers Care Winding Inspector Name Role Phone Ritu Bolaños APRN Primary Care Provider [phone]- [phone] Encounter Details Date Type Department Care Team (Late st Contact Info) Description 05/29/2019 Telephone Orthopaedics at [facility] [address] [place] [address] [place] [address] Eric Soto MD [address] [place] [address] Social History Tobacco Use Types Packs/Day Years Used Date Smoking Tobacco: Never Assessed Sex and Gender Information Value Date Recorded Sex Assigned at Not on file Gender Identity Female 09/25/2020 7:37 PM EST Sexual Orientation Not on file documented as of this encounter Miscellaneous Notes * Telephone Encounter - Elizabeth Holguin RN - 05/29/2019 11:47 AM EDT Patient scheduled for RT THR on 06/19. She had a fall on 05/06 and hurt her wrist. She is seeing an ortho dr closer to her home on 06/06 and is afraid she may need surgery on her wrist. She asks if thiswill affect her hip surgery. I said yes, as she will be using a walker and if her wrist is injured will not be able to hold the walker. She will keep me posted and let me know what the plan is after her appt on 06/06. documented in this encounter Plan of Treatment Not on file documented as of this encounter Visit Diagnoses Not on filedocumented in this encounter Care Teams Winding Inspector Relationship Specialty Start Date End Date Ritu Bolaños APRN [address] [place] [address] PCP - General 05/07/15 02/03/22 documented as of this encounter
--- OUTSIDE RECORDS SUMMARY | 2024-04-12 15:16 | XMS_ITS | Encounter Summary ---
Author Organization [facility] [place] [address] Care Team Providers Care And Drying Supervisor Cooking Casing Name Role Phone Ritu Bolaños APRN Primary Care Provider +1- [phone] Encounter Details Date Type Department Care Team ([facility] st Contact Info) Description 06/12/2019 9:45 AM EDT Telephone Pre-Admission Testing at [facility] [place] [address] Social History Tobacco Use Types Packs/Day Years [...] on filedocumented in this encounter Care Teams And Drying Supervisor Cooking Casing Relationship Specialty Start Date End Date Ritu Bolaños APRN [address] [place] [address] PCP - General 05/07/15 02/03/22 documented as of this encounter
--- OUTSIDE RECORDS SUMMARY | 2024-04-12 15:16 | XMS_ITS | Encounter Summary ---
Author Organization [facility] Address [facility] [place] [address] Care Team Providers Care Development Advisor Name Role Phone Ritu Bolaños APRN Primary Care Provider +1- [phone] Encounter Details Date Type Department Care Team (Late st Contact Info) Description 03/02/2019 Orders Only [facility] [place] [address] Pat Smith, TERRY Social History Tobacco Use Types Packs/Day Years [...] on filedocumented in this encounter Care Teams Development Advisor Relationship Specialty Start Date End Date Ritu Bolaños APRN [address] [place] [phone] PCP - General 05/07/15 02/03/22 documented as of this encounter
--- OUTSIDE RECORDS SUMMARY | 2024-04-12 15:16 | XMS_ITS | Encounter Summary ---
[facility] [place] [address] Care Team Providers Care Softball Player Name Role Phone Ritu Bolaños APRN Primary Care Provider +1- [phone] Encounter Details Date Type Department Care Team (Latest Contact Info) Description 02/07/2019 10:40 AM EDT - 02/07/2019 11:59 PM EDT Hospital Encounter Mammography/[place] [address] Ritu Bolaños APRN [address] [place] [phone] Visit for screening mammogram Discharge Disposition: Home Social History Tobacco Use [...] MAMMO SCREENING CAD AND ANETTE BILATERAL Routine 02/07/2019 11:31 AM EDT Visit for screening mammogram documented in this encounter Results * Mammo Screening Cad and Anette Bilateral (02/07/2019 11:31 AM EDT) Anatomical Region Laterality Modality Breast Bilateral Mammography Narrative 02/07/2019 12:10 PM EDT BILATERAL MAMMOGRAPHY REASON FOR EXAM: Screening [...] CONCLUSION: No mammographic evidence of malignancy. RECOMMENDATION: Medical organizations agree that annual screening mammography beginning at age 40 saves the most lives. The risks of screening are negligible compared to dying from breast cancer or suffering from more aggressive treatment required when detected at a later stage. No woman is at low risk for breast cancer. Some women, because of their family history, a genetic tendency, or certain other factors, should be screened with breast MRI along with mammograms. (The number of women who fall into this category is very small). The patient and health care provider should discuss the patient history and decide if earlier screening and breast MRI are appropriate. Screening should continue as long as a woman is in good health and is expected to live 10 years or longer. Screening mammography may not detect 10-15% of breast cancers. Women should report any breast changes to a health care provider right away. A result letter has been sent to this patient by [facility]. BIRADS CATEGORY 1: NEGATIVE Ritu Bolaños APRN IMG MAMMO ORDERABL ES documented in this encounter Visit Diagnoses Diagnosis Visit for screening mammogram Other screening mammogram documented in this encounter Care Teams Softball Player Relationship Specialty Start Date End Date Ritu Bolaños APRN [address] [place] [address] PCP - General 05/07/15 02/03/22 documented as of this encounter
--- OUTSIDE RECORDS SUMMARY | 2024-04-12 15:16 | XMS_ITS | Encounter Summary ---
Author Organization [facility] [place] [address] Care Team Providers Care Attendance Clerk Name Role Phone Ritu Bolaños APRN Primary Care Provider [phone] Reason for Visit * Auth/Cert Specialty Diagnoses / Procedures Referred By Contac t Referred To Contact Diagnoses Hypotension HYPOTENSION Referral ID Status Reason Start Date Expiration Date Visits Re quested Visits Authorized [id number] 1 1 Encounter Details Date Type Department Care Team (Latest Contact Info) Description 06/19/2019 8:36 PM EDT - 06/21/2019 4:35 PM EDT Hospital Encounter Surgical [place] [id number] [place] [address] [place] [address] Nausea and vomiting, intractability of vomiting not specified, unspecified vomiting type; Anemia, unspecified type Discharge Disposition: Home Social History Tobacco Use [...] Sign Reading Time Taken Comments Blood Pressure 125/55 06/21/2019 12:00 PM EDT Pulse 80 06/20/2019 8:00 PM EDT Temperature 36.7 ??C (98.1 ??F) 06/21/2019 1 2:00 PM EDT Respiratory Rate 12 06/21/2019 7:14 AM EDT Oxygen Saturation 96% 06/21/2019 12: 00 PM EDT Inhaled Oxygen Concentration - - Weight 64.7 kg (142 lb 10.2 oz) 06/19/2019 8:56 PM EDT Height 162.6 cm (5' 4) 06/19/2019 8:56 PM EDT Body Mass Index 24.48 06/19/2019 8:56 PM EDT documented in this encounter Discharge Summaries * Dyllan Grubbs MD - 06/21/2019 4:35 PM EDT Images from the original note were not included. Discharge Summary Patient Name: Jigna Espinoza Patient Age: 74 y.o. Language: Algerian Race: White Ethnicity: Not nor Admit date: 06/19/2019 Discharge date and time: 06/21/19 Attending Physician: Dyllan Grubbs MD Discharge Physician: Dyllan Grubbs MD Follow-up Recommendations for Providers: - monitor H/H - ongoing follow up as scheduled for R JACQUIE - dyazide held during this admission due to hypotension, assess for ability to resume Inpatient Provider Contact Information: For questions regarding this document or issues relating to this hospitalization on the Medical Service, please contact your inpatient physician through the [facility]ouble [employer]ooter . Issues afterhours and on weekends will be handled by the Hospitalist staff on-call. Discharge Diagnoses (Hospital Problems) and Secondary Diagnoses (Chronic Problems): Active Hospital Problems Diagnosis ??? Hypotension Resolved Hospital Problems No resolved problems to display. Active Non-Hospital Problems Diagnosis ??? Status post total hip replacement, right ??? Claustrophobia ??? Allergic rhinitis ??? Alopecia [...] Pain in joint, pelvic region and thigh Operations/Major Procedures: Operations: Other Major Procedures: n/a History of Presentation: Per Dr. Pineda's H&P Jigna Espinoza??( ) is a??74 y.o.??female??with a history of HTN and asthma??who presented on 06/19/2019??with postoperative hypotension.[facility] for an elective right total hip. The procedure was uncomplicated and there was no intraoperative pressor requirement. She received a spinal epidural for pain control. Postoperatively she became hypotensive andnauseous. She was resuscitated with 4L crystalloid. Lab values were significant for a hemoglobin drift from 12 to 10. Due to persistent hypotension, she was transferred to [facility]. On arrival, she was pale diaphorteic and shivering with systolic blood pressures in the 60s. A bedside echo was performedwhich showed hyperdynamic cardiac function, a small LV cavity with near obliteration at the end of systole, no valvular abnormalities, no effusion, a normal RV with normal function and an IVC collapsable in all phases of respiration. A CBC was obtained which revealed a hemoglboin of 5.9. ?? Hospital Course: Jigna Espinoza is a 74 y.o. woman with PMH HTN and asthma admitted in [facility] after an elective R JACQUIE complicated by postoperative hypotension suspected to be due to hemorrhagic shock in setting of postoperative hematomas. ?? #Intramuscular/extramuscular hematoma s/p R JACQUIE #Hemorrhagic/hypovolemic shock resolved #Acute blood loss anemai #Syncope Pt [facility] for elective R JACQUIE for OA. The procedure was reportedly uncomplicated with 400cc EBL in the OR. PACU recovery was complicated by postoperative hypotension requiring low dose josh. She had 2 episodes of syncope in the PACU after a run of tachycardia. She received 4L IVFs and was pe rsistently hypotensive therefore transferred to the [facility] ICU for further management. On arrival shewas hypotensive to the 60s systolic requiring phenylephrine gtt. Hgb was found to be 5.9 (from 12) with tense hematoma in the R thigh. Bedside echo showed hyperdynamic function with collapsible IVC. She was transfused 2U pRBC and was quickly weaned off of pressors. CTA pelvis demonstrated moderate intra and extramuscular hematoma, unable to rule out active extravasation. She was managed conservatively with ice packs and serial H/H which stabilized in the 7.5-8.5 range. Transferred to hospital medicine for further management. After transfer to hospital medicine, Hb dropped slightly to 7.3 but recovered to 7.7 on next check without intervention. RLE examination remained unchanged and the patient was asymptomatic (aside from mild R hip pain) and hemodynamically stable. She was seen by PT who felt she was safe for home andthe patient declined the need for home PT/OT. Pt discharged to home and will follow up with orthopedic surgery and her PCP as outpatient. She was prescribed a short supply of oxycodone for pain in addition to standing tylenol. Will get repeat hemogram in several days for monitoring. Vital Signs at Discharge: BP: 125/55, Heart Rate: 80, Temp: 36.7 ??C (98.1 ??F), Resp: 12, BMI (Calculated): 24.48 Height: 162.6 cm (5' 4) (06/19/192055) Weight: 64.7 kg (142 lb 10.2 oz) (06/19/192055) Functional and Cognitive Status: stable Important Studies and Lab Data: Labs: Last 3 wbc, hgb, hct plt Recent Labs 06/21/19 0850 06/21/19 0248 06/20/19 1830 WBC 6.1 5.4 6.0 HGB 7.7* 7.3* 8.1* HCT 22.0* 20.1* 22.8* PLATELET 159 135* 153 Last 3 Lytes Recent Labs 06/21/19 0248 06/20/19 0040 06/19/19 2320 NA 135 134* 132* K 3.6 3.8 3.6 CL 101 101 101 CO2 26 22 20* BUN 11 17 16 CREATININE 0.64* 0.64* 0.60* Last 3 LFTs Recent Labs 06/08/19 1302 AST 27 ALT 21 ALKPHOS 71 BILITOT 0.4 Last Ca, Mg, Phos Recent Labs 06/21/19 0248 06/20/19 0040 CALCIUM 7.9* 7.1* PHOS -- 4.0 Last 3 Coags Recent Labs 06/20/19 0016 06/19/19 2320 PT 14.0* 14.5* INR 1.2 1.3 PTT 24* 23* Studies: CTA pelvis 06/20/19 ?? IMPRESSION Moderate-sized intra-muscular and extra-muscular hematomas within the thigh and about the pelvis. Multiple foci of hyperdensity within the upper thigh and about the pelvis of indeterminate etiology; osseous fragments related to procedure with a consideration although active extravasation cannot be convincingly excluded given this appearance as well as the hematomas. ?? XR pelvis and R femur 06/20/19 IMPRESSION 1. ??Status post right total hip arthroplasty with no evidence of periprosthetic fracture or dislocation. 2. ??Known intramuscular hematoma is better appreciated on CT angiogram and pelvis from today. ? Other Studies: EKG 06/20/19 Sinus tachycardia Left axis deviation Possible Anteroseptal infarct Abnormal ECG ?? Pending Studies and Lab Data: n/a Discharge Conditions/Prognosis: stable Discharge to: home Updated Allergies/ADRs: Allergies Allergen Reactions ??? Ketorolac Other (See Comments) Other reaction(s): black stools, nausea and vomting ??? Codeine Nausea Only ??? Hydrocodone Nausea Only ??? Hydromorphone Nausea Only ??? Tramadol Nausea Only Immunizations Given this Hospitalization: There is no immunization history on file for this patient. Discharge Medications: Your Medications New Medications Dose Details oxyCODONE 5 mg Tab Commonly known as: ROXICODONE Take 1 tablet by mouth every 4 hours as needed for Pain. 5 mg Quantity: 30 tablet Refills: 0 senna-docusate 8.6-50 mg Tab Commonly known as: PERICOLACE Take 1 tablet by mouth daily. 1 tablet Quantity: 60 tablet Refills: 11 Continued medications with new dosing Dose Details acetaminophen 500 mg Tab Commonly known as: TYLENOL Take 2 tablets by mouth 3 times daily for 10 days. What changed: ?? medication strength ?? how much to take ?? when to take this ?? reasons to take this 1,000 mg Quantity: 60 tablet Refills: 0 Continued medications, unchanged Dose Details celecoxib 200 mg Cap Commonly known as: CeleBREX 200 mg daily. 200 mg Refills: 1 CO [id number] E-FISH OIL ORAL Take 1 tablet by mouth daily. 1 tablet Refills: 0 ferrous gluconate 240 mg (27 mg iron) Tab Take 240 mg by mouth daily. 240 mg Refills: 1 fluticasone propionate 50 mcg/actuation Spsn Commonly known as: FLONASE 2 sprays by Each Nare route daily. 2 spray Refills: 0 FOSAMAX 70 mg Tab Take 70 mg by mouth every 7 days. Indications: TAKES EITHER TUESDAY OR TUESDAY Generic drug: alendronate 70 mg Refills: 0 LAXATIVE PEG 3350 17 gram/dose Powd TAKE 17 GRAMS MIXED DIRECTED BY MOUTH ONCE TO THREE TIMES DAILY DIRECTED Generic drug: polyethylene glycol Refills: 1 loratadine 10 mg Tab Commonly known as: CLARITIN Take 10 mg by mouth daily as needed for Allergies. 10 mg Refills: 0 Magnesium Oxide 250 mg magnesium Tab Take 2 tablets by mouth daily. 2 tablet Refills: 0 multivitamin Tab Commonly known as: THERAGRAN Take 1 tablet by mouth daily. 1 tablet Refills: 0 omeprazole 40 mg Cpdr Commonly known as: PriLOSEC take 1 capsule by mouth twice a day Refills: 0 potassium chloride 10 mEq Tbsr Commonly known as: K-DUR/KLOR-CON Take 20 mEq by mouth 2 times daily. 20 mEq Refills: 0 * PROVENTIL HFA 90 mcg/actuation Hfaa 2 puffs every 4 hours as needed. Generic drug: albuterol 2 puff Refills: 0 * albuterol 2.5 mg /3 mL (0.083 %) Nebu Commonly known as: PROVENTIL Take 2.5 mg by nebulization. Indications: every 4 to 6 hours as needed 2.5 mg Refills: 0 PULMICORT FLEXHALER 180 mcg/actuation Aepb Inhale 1 puff into the lungs 2 times daily. Generic drug: budesonide 1 puff Refills: 0 SEREVENT DISKUS 50 mcg/dose Dsdv Inhale 1 puff into the lungs 2 times daily. Generic drug: salmeterol 1 puff Refills: 0 sertraline 50 mg Tab Commonly known as: ZOLOFT Take 1 tablet by mouth daily. 1 tablet Refills: 0 SINGULAIR 10 mg Tab Take 10 mg by mouth daily. Generic drug: montelukast 10 mg Refills: 0 * This list has 2 medication(s) that are the same as other medications prescribed for you. Read thedirections carefully, and ask your doctor or other care provider to review them with you. STOPPED Medications DYAZIDE 37.5-25 mg Cap Generic drug: triamterene-hydrochlorothiazide mupirocin 2 % Oint Commonly known as: BACTROBAN Smoking Status at Discharge: Social History Tobacco Use Smoking Status Never Smoker Smokeless Tobacco Never Used Instructions Given to Patient at Discharge: Patient Instructions Instructions on Discharge to Home Why you were hospitalized - You were admitted to the hospital with anemia and low blood pressures after your operation. You were found to have a low hemoglobin to 5.9 and you were transfused 2 units of blood. You had a CT scan showing blood collection (hematoma) around the surgical site. Your hemoglobin improved after receiving blood and then remained approximately stable in the 7-8 range. Please make sure to follow up withyour orthopedic surgeon as scheduled below and call if there is any concern for recurrent bleeding. Call your doctor or seek medical attention if you develop the following - chest pain, shortness of breath, fever, cough, weakness in an arm or leg Activity level - no restrictions, but take it easy for a few days Diet - no change in previous diet Driving - as before hospitalization Shower/Bath - permitted Home Oxygen therapy - none Changes in Your Medications: New Medications: - oxycodone every 4-6hours as needed for pain - acetaminophen (tylenol) every 8 hours (three times a day) Medication dose changes: n/a Stop these medications: dyazide Workup to be followed: - Please get a blood draw on 06/25/19 to monitor your blood counts. Follow-up: - You have an appointment with Ritu Bolaños APRN on June 26 at 10AM. Please check whether to restart the dyazide medication based on your blood pressure. Future Appointments Date Time Provider Department Center 07/16/2019 1:30 PM [facility] DX RM2 [facility] XRAY [facility] Rad Clin 07/16/2019 2:30 PM Regla Cox PA [facility] ORTHO [facility] Your Inpatient Doctor: Dyllan Grubbs MD Your Primary Care Provider: Ritu Bolaños, MERCHANDISING DIRECTOR [phone] For questions regarding this document or issues relating to this hospitalization on the Medical Service, please contact your inpatient physician through the [facility] . Issues afterhours and on weekends will be handled by the Hospitalist staff on-call. General Instructions Activity: 1. Your weight-bearing status is - weight bearing as tolerated of right leg. 2. Remember to use a walker or crutches as needed for balance and protection. Your physical therapist may progress you to using a cane when appropriate. 3. Remember your hip precautions: Standard: You should transition from sit to stand and stand to sit utilizing a broad based stance with feet and knees wider than hips. Weight bearing status: Weight bearing as tolerated ?? Wound closure: Monocryl 3-0 and Dermaflex skin adhesive. No stitches or radha to remove. ?? Dressing changes: Surgical dressing to be left in place for 5 days before removal. ?? Follow-up Plan: In [facility] in 4 weeks post-operatively with new x-rays of operated joint. ?? Anticoagulation: None Diet: Resume your usual diet but increase your intake of fluids and fiber while you are on narcoticpain meds to prevent constipation. Driving: None until you are cleared to do so by your Orthopedic surgeon. You should not drive whileyou are on narcotic pain meds as they can affect your judgment and reaction time. Call your surgeonwith any questions/concerns. Medications: 1. The pain medication you are on can cause constipation so increase your intake of fluids and fiber while you are on them. The stool softener, Pericolace, that has been prescribed can also be taken to facilitate a bowel movement. You can also take an jzvu-ilq-eakcebo medication, Miralax if needed to combat constipation. 2. If you need a renewal on your narcotic pain medication, you need to give the Orthopedic clinic enough time to process your request. This can take up to three days, so plan accordingly. 3. Continue acetaminophen (Tylenol) 1,000mg every 8 hours around the clock until 06/30/19 (for ten days after your surgery). This can be effective in controlling pain along with your other medications. After that you can take Tylenol as needed per package insert. Do not take more than 3,000mg of acetaminophen in a 24 hour period. 4. You have been discharged on a short acting narcotic, oxycodone every 4-6 hours as needed for pain. You will be on this medication for a limited period of time only. Take the smallest dose possibleto control your pain. As your pain improves take smaller, less frequent doses. You may break the tablet to achieve a smaller dose. Shower (internal sutures): 1. You can shower but remember your activity limitations and always have a chair available for balance and protection. DO NOT submerge the dressing/incision. Misc: Remember that ICE and elevation are very important after surgery to help decrease swelling and control pain. Use ICE for 20-30 minutes at a time and keep your leg elevated as much as possible. Call your doctor ([phone]) if you develop: 1. Fever greater than 100.5 2. Severe nausea or vomiting 3. Increasing pain that is not controlled by pain medications 4. Increasing redness, swelling, or drainage from incisions 5. Change in sensation FOLLOW-UP APPOINTMENTS: 1. You will have follow-up appointments at [facility] as indicated below in Future Appointment and Orders. 2. You will need to have x-rays prior to your follow-up appointment on 07/16/19. Future Appointments Date Time Provider Department Center 07/16/2019 1:30 PM [facility] DX RM2 [facility] XRAY [facility] Rad Clin 07/16/2019 2:30 PM Regla Cox PA [facility] ORTHO [facility] If you have questions or concerns: Tuesday through Tuesday, 8 AM - 5 PM, please call Dr. Dyllan Grubbs MD's office at . If it is after 5 PM, the weekend, or holidays, please call and ask to speak with theOrthopedic resident on-call. Future Appointments and Orders Future Appointments and Orders Future Appointments Provider Department Dept Phone 07/16/2019 1:30 PM [facility] DX [facility]2 Radiology XRay [facility] at [facility] Level 07/16/2019 2:30 PM Regla Cox PA Orthopaedics at [facility] Level Future Orders Complete By Expires Hemoglobin and Hematocrit, blood [[id number] Custom] 06/25/2019 (Approximate) 12/25/2019 Process Instructions: Scheduling Instructions: Comments: Questions: Discharge References/Attachments Hip Replacement (Anterior): Post-op (Algerian) documented in this encounter Discharge Instructions * Discharge Instructions* Dyllan Grubbs MD - 06/21/2019 3:14 PM EDT Activity: 1. Your weight-bearing status is - weight bearing as tolerated of right leg. 2. Remember to use a walker or crutches as needed for balance and protection. Your physical therapist may progress you to using a cane when appropriate. 3. Remember your hip precautions: Standard: You should transition from sit to stand and stand to sit utilizing a broad based stance with feet and knees wider than hips. Weight bearing status: Weight bearing as tolerated ?? Wound closure: Monocryl 3-0 and Dermaflex skin adhesive. No stitches or radha to remove. ?? Dressing changes: Surgical dressing to be left in place for 5 days before removal. ?? Follow-up Plan: [facility] in 4 weeks post-operatively with new x-rays of operated joint. ?? Anticoagulation: None Diet: Resume your usual diet but increase your intake of fluids and fiber while you are on narcoticpain meds to prevent constipation. Driving: None until you are cleared to do so by your Orthopedic surgeon. You should not drive whileyou are on narcotic pain meds as they can affect your judgment and reaction time. Call your surgeonwith any questions/concerns. Medications: 1. The pain medication you are on can cause constipation so increase your intake of fluids and fiber while you are on them. The stool softener, Pericolace, that has been prescribed can also be taken to facilitate a bowel movement. You can also take an cbzq-hvj-foigywg medication, Miralax if needed to combat constipation. 2. If you need a renewal on your narcotic pain medication, you need to give the Orthopedic clinic enough time to process your request. This can take up to three days, so plan accordingly. 3. Continue acetaminophen (Tylenol) 1,000mg every 8 hours around the clock until 06/30/19 (for ten days after your surgery). This can be effective in controlling pain along with your other medications. After that you can take Tylenol as needed per package insert. Do not take more than 3,000mg of acetaminophen in a 24 hour period. 4. You have been discharged on a short acting narcotic, oxycodone every 4-6 hours as needed for pain. You will be on this medication for a limited period of time only. Take the smallest dose possibleto control your pain. As your pain improves take smaller, less frequent doses. You may break the tablet to achieve a smaller dose. Shower (internal sutures): 1. You can shower but remember your activity limitations and always have a chair available for balance and protection. DO NOT submerge the dressing/incision. Misc: Remember that ICE and elevation are very important after surgery to help decrease swelling and control pain. Use ICE for 20-30 minutes at a time and keep your leg elevated as much as possible. Call your doctor ([phone]) if you develop: 1. Fever greater than 100.5 2. Severe nausea or vomiting 3. Increasing pain that is not controlled by pain medications 4. Increasing redness, swelling, or drainage from incisions 5. Change in sensation FOLLOW-UP APPOINTMENTS: 1. You will have follow-up appointments at [facility] as indicated below in Future Appointment and Orders. 2. You will need to have x-rays prior to your follow-up appointment on 07/16/19. Future Appointments Date Time Provider Department Center 07/16/2019 1:30 PM [facility] DX RM2 [facility] XRAY [facility] Rad Clin 07/16/2019 2:30 PM Regla Cox PA [facility] ORTHO [facility] If you have questions or concerns: Tuesday through Tuesday, 8 AM - 5 PM, please call Dr. Dyllan Grubbs MD's office at . If it is after 5 PM, the weekend, or holidays, please call and ask to speak with theOrthopedic resident on-call. * Patient Instructions* Dyllan Grubbs MD - 06/21/2019 2:41 PM EDT Instructions on Discharge to Home Why you were hospitalized - You were admitted to the hospital with anemia and low blood pressures after your operation. You were found to have a low hemoglobin to 5.9 and you were transfused 2 units of blood. You had a CT scan showing blood collection (hematoma) around the surgical site. Your hemoglobin improved after receiving blood and then remained approximately stable in the 7-8 range. Please make sure to follow up withyour orthopedic surgeon as scheduled below and call if there is any concern for recurrent bleeding. Call your doctor or seek medical attention if you develop the following - chest pain, shortness of breath, fever, cough, weakness in an arm or leg Activity level - no restrictions, but take it easy for a few days Diet - no change in previous diet Driving - as before hospitalization Shower/Bath - permitted Home Oxygen therapy - none Changes in Your Medications: New Medications: - oxycodone every 4-6hours as needed for pain - acetaminophen (tylenol) every 8 hours (three times a day) Medication dose changes: n/a Stop these medications: dyazide Workup to be followed: - Please get a blood draw on 06/25/19 to monitor your blood counts. Follow-up: - You have an appointment with Ritu Bolaños APRN on June 26 at 10AM. Please check whether to restart the dyazide medication based on your blood pressure. Future Appointments Date Time Provider Department Center 07/16/2019 1:30 PM [facility] DX RM2 [facility] XRAY [facility] Rad Clin 07/16/2019 2:30 PM Regla Cox PA [facility] ORTHO [facility] Your Inpatient Doctor: Dyllan Grubbs MD Your Primary Care Provider: Ritu Bolaños APRN [phone] For questions regarding this document or issues relating to this hospitalization on the Medical Service, please contact your inpatient physician through the [facility]ouble [employer]ooter . Issues afterhours and on weekends will be handled by the Hospitalist staff on-call. * Attachments The following attachments cannot be sent through Care Everywhere. * Hip Replacement (Anterior): Post-op (Algerian) documented in this encounter Medications at Time [...] as needed fluticasone propionate (FLONASE) 50 mcg/actuation [place], Suspension 2 sprays by Each Nare [...] mouth daily. 60 tablet 11 06/21/2019 10/10/2019 budesonide (PULMICORT FLEXHALER) 180 mcg/actuation Aerosol Powdr [...] mouth daily as needed for Allergies. 01/24/2020 ferrous gluconate 240 mg (27 mg iron) [...] Indications: TAKES EITHER TUESDAY OR Tuesday10/02/2018 05/06/2020 ubidecarenone/omega-3/v it E (CO [id number] E-FISH OIL ORAL) Take 1 tablet by mouth daily. 05/12/2021 documented as of this encounter Progress Notes * Dyllan Grubbs MD - 06/21/2019 4:35 PM EDT Hospital Medicine - Attending Day of Discharge Documentation Discharge diagnosis Active Hospital Problems Diagnosis ??? Hypotension Resolved Hospital Problems No resolved problems to display. Secondary Issues Active Non-Hospital Problems Diagnosis ??? Status post total hip replacement, right ??? Claustrophobia ??? Allergic rhinitis ??? Alopecia [...] Pain in joint, pelvic region and thigh I have personally seen and examined the patient and they are ready for discharge. I spent >30 minutes (Day of Discharge Code 33981) involved in the final examination of the patient, discussion of the hospital stay, instructions for continuing care to all relevant caregivers, and preparation of discharge records, prescriptions and referral forms. Plans ? Discharge to home ? Follow-up scheduled with orthopedic surgery, PCP ? Please see the Discharge Summary for complete details of any medication changes and additional plans. * Fiona Mackenzie, RN - 06/21/2019 3:20 PM EDT 1200 CM spkewithpt and spouse in room.Pt dened needing VNA at [place]. 1300 Orthopedic MD called CM to ask re if VNA could be ordered for pt . CM informed MD that pt had declined wanting VNAat home again this AM when CM had asked her and had said she would do outpt Theray at [facility] if needed. stated she would page CM if pt agreed ti VNA at ID. * Jason Nichols MD - 06/21/2019 5:42 AM EDT ORTHOPAEDIC SURGERY INPATIENT PROGRESS NOTE Patient Name: Jigna Espinoza Age: 74 y.o. Surgery/Issue: R JACQUIE Attending: Dr. Soto (APD - transferred for post-op hypoTN) Date of surgery: 06/19/19 SUBJECTIVE / INTERVAL HISTORY: Ms. Espinoza reports that has continued to improve. Vitals WNL - Hgb 7.3 (2u pRBCs in SICU yesterday -IVF since then). She does report pain to Right hip, but has only taken Tylenol since coming to [facility] for pain. CTA completed yesterday demonstrated hematoma, unlikely active extravasation. Denies SOB, chest pain, N/V. FOCUSED REVIEW OF SYSTEMS: as above. Active Hospital Problems Diagnosis ??? Hypotension Resolved Hospital Problems No resolved problems to display. Active Non-Hospital Problems Diagnosis ??? Status post total hip replacement, right ??? Claustrophobia ??? Allergic rhinitis ??? Alopecia [...] Pain in joint, pelvic region and thigh MEDICATIONS: ??? oxyCODONE (ROXICODONE) immediate release tablet 5 mg ??? glucose (GLUTOSE) 40% oral gel OR dextrose 50% intravenous solution 25- 50 mL OR glucagon (human recombinant) injection SolR 1 mg ??? POCT Fingerstick Glucose AND insulin lispro (HumaLOG) VIAL injection 1-4 Units ??? montelukast (SINGULAIR) tablet 10 mg ??? ondansetron (ZOFRAN) injection 4 mg ??? acetaminophen (TYLENOL) tablet 650 mg ??? sertraline (ZOLOFT) tablet 50 mg ??? sodium chloride 0.9 % (flush) flush 5 mL ??? sodium chloride 0.9 % (flush) flush 5-20 mL ??? lidocaine (XYLOCAINE) 10 mg/mL (1 %) injection 3 mg ??? albuterol (PROVENTIL) nebulizer solution 2.5 mg ??? pantoprazole (PROTONIX) tablet 40 mg ??? prochlorperazine (COMPAZINE) injection 5 mg OBJECTIVE: Temp: [36.3 ??C (97.3 ??F)-37.3 ??C (99.1 ??F)] Heart Rate: [71-94] Resp: [12-25] BP: (96-140)/(47-83) Intake/Output Summary (Last 24 hours) at 06/21/2019 0554 Last data filed at 06/21/2019 0516 Gross per 24 hour Intake 1815 ml Output 2555 ml Net -740 ml BMI: Weight: 64.7 kg (142 lb 10.2 oz) (06/19/192055) BMI (Calculated): 24.48 BMI Classification: Normal Weight Body mass index is 24.48 kg/m??. PE: General: awake/alert, responds to questions CV: RRR assessed peripherally Resp: Breathing comfortably on RA RLE: Transverse anterior thigh dressing c/d/i, minor surrounding ecchymosis Effusion about proximal hip with associated of minor tense sensation to palpation, but soft, compressible No effusion in knee / ankle No TTP knee, tib/fib, ankle, foot; minor TTP over incision site Compartments soft. No crepitus Hip/knee ROM deferred. Painless range of motion of ankle Sensation intact to light touch in Saphenous/Sural/LFC/Femoral/MP/LP/T/DP/SP distributions Motor intact (5/5) ankle flexion/extension, EHL/FHL/TA Brisk capillary refill distally 2+ DP/PT pulses Lab Results Component Value Date NA 135 06/21/2019 K 3.6 06/21/2019 CL 101 06/21/2019 CO2 26 06/21/2019 BUN 11 06/21/2019 CREATININE 0.64 (L) 06/21/2019 GLUCOSE 108 06/21/2019 CALCIUM 7.9 (L) 06/21/2019 Lab Results Component Value Date WBC 5.4 06/21/2019 HGB 7.3 (L) 06/21/2019 HCT 20.1 (L) 06/21/2019 MCV 84.8 06/21/2019 PLATELET 135 (L) 06/21/2019 Lab Results Component Value Date INR 1.2 06/20/2019 IMAGING: EXAMINATION: CT ANGIOGRAM PELVIS W CONTRAST IMPRESSION Moderate-sized intra-muscular and extra-muscular hematomas within the thigh and about the pelvis. Multiple foci of hyperdensity within the upper thigh and about the pelvis of indeterminate etiology; osseous fragments related to procedure with a consideration although active extravasation cannot be convincingly excluded given this appearance as well as the hematomas. XR RIGHT FEMUR, PELVIS/HIP: FINDINGS: AP pelvis: Status post right JACQUIE with no periprosthetic fracture or dislocation. Expected soft tissue swelling and subcutaneous gas. Left hip-joint space narrowing, osteophyte formation subchondral sclerosis, unchanged. Incidentally noted is the distal end of spine fusion hardware. ASSESSMENT / PLAN: Jigna Espinoza is a 74 y.o. female who presents status post right hip arthroplasty with Dr. Vegas yesterday 06/19/[address] [facility] ICU with concerns of postoperative hypotension and concomitant hemoglobin drop. ?? Patient doing well in ICU since receiving 2 units PRBCs yesterday morning. She remains A&Ox3 and not currently requiring pressors and although RLE is swollen, but no excess effusion with limb compressible, soft and dressing c/d/i and no significant increase in limb size. Hgb 7.3 this morning. If there is a continued concern for potential ongoing bleed - recommend IR consult for their analysis. ?? - Activity: may progress to WBAT w/PT/OT consult - DVT prophylaxis: per primary (holding in acute post op period) - Diet: per primary - Follow up and other orders in regard to post op care per Dr. Charles Nichols MD 06/21/2019 Future Appointments Date Time Provider Department Center 07/16/2019 1:30 PM APD [facility] DX RM2 APD XRAY [facility]D Rad Clin 07/16/2019 2:30 PM Regla Cox PA APD ORTHO APD * Yadira Villarreal RN - 06/20/2019 6:29 PM EDT OUTCOME EVALUATION NOTE: OUTCOME SUMMARY: -Pt denies numbness/tingling in RLE-intermittent pain with movement relieved with tylenol prn -hematoma still present on RLE-unchanged -tolerating regular diet without issue -elaine removed-up to bedside commode to void w/ 1 assist and walker -downgrade to floor status PLAN MOVING FORWARD: Hemogram q8, vitals q4, pain management CPG GOAL OUTCOME EVALUATION: * Vitor Richey MD - 06/20/2019 9:37 AM EDT ICU STAFF PROGRESS NOTE Critical Care Medicine Author: Juan Richey Patient seen and examined on critical care rounds. History of Present Illness: Jigna Espinoza is a 74 y.o. female with a PMH of HTN and asthma who is s/p elective right JACQUIE on [facility] under spinal anesthesia. She developed postoperative hypotension, andwas found to have Hgb 5.9 with a tense hematoma in her right thigh. She was transferred to [facility] SICU in the tool adjuster of 06/20/19 for hemodynamic support requiring 2 uPRBCs and transient pressors.Her intraoperative course was uneventful, patient tolerated spinal with 12.5mg bupivacaine and low dose propofol gtt with no vasopressor requirement throughout the case. On arrival to the ICU the bedside TTE showed hyperdynamic LV, LVEF ~70-80%, mild LVH, no significant valvular abnormalities, IVC < 1cm with significant respirophasic variation. Past Medical History: Past Medical History: Diagnosis Date ??? Asthma ??? Cancer bcc ??? Chronic pain ??? Claustrophobia 06/11/2019 ??? Gastroesophageal reflux ??? High blood pressure ??? Irregular heart beat PALPITATIONS ??? 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 Peptic ulcer disease 02/201904/04/2019 EGD SHOWED HEALED ULCER Past Surgical History: Past Surgical History: Procedure Laterality Date ??? APPENDECTOMY 1967 ??? CHOLECYSTECTOMY 1971 ??? COLONOSCOPY 04/04/2019 ??? CT GUIDED INJECTION SI JOINT 01/30/2019 CT Guided Injection SI Joint 01/30/2019 [facility] RAD CAT SCAN ??? CT GUIDED JOINT INJECTION 09/04/2018 CT Guided Joint Injection 09/04/2018 [facility] RAD CAT SCAN ??? HIP SURGERY 05/25/2017 ??? HYSTERECTOMY ??? OVARY REMOVAL ??? PRO TOTAL HIP ARTHROPLASTY Right 06/19/2019 @TOTAL HIP ARTHROPLASTY, ANTERIOR APPROACH (WRVU 20.72) performed by Eric Soto MD at [facility] MA[facility] OR ??? SPINAL FUSION 01/2018 ??? UPPER GASTROINTESTINAL ENDOSCOPY AND 04/04/2019 ??? XR FLUORO INJECTION DRAINAGE JOINT LG RIGHT Right 03/16/2019 XR Fluoro Guided Joint Injection Large Right 03/16/2019 [facility] RAD XRAY Prior To Admission Medications: Medications Prior to Admission Medication Sig Dispense Refill Last Dose ??? mupirocin (BACTROBAN) 2 % Ointment Apply small amount into each nostril 2 times a day x 5 days prior to surgery 22 g 0 06/19/2019 at Unknown time ??? potassium chloride (K-DUR/KLOR-CON) 10 mEq Tablet Sustained Release Take 20 mEq by mouth 2 times daily. 0 06/18/2019 at Unknown time ??? sertraline (ZOLOFT) 50 mg Tablet Take 1 tablet by mouth daily. 0 06/18/2019 at Unknown time ??? celecoxib (CELEBREX) 200 mg Capsule 200 mg daily. 1 06/18/2019 at Unknown time ??? albuterol (PROVENTIL HFA) 90 mcg/actuation HFA Aerosol Inhaler 2 puffs every 4 hours as needed.06/19/2019 at Unknown time ??? budesonide (PULMICORT FLEXHALER) 180 mcg/actuation Aerosol Powdr Breath Activated Inhale 1 puffinto the lungs 2 times daily. 06/19/2019 at Unknown time ??? montelukast (SINGULAIR) 10 mg Tablet Take 10 mg by mouth daily. 06/19/2019 at Unknown time ??? salmeterol (SEREVENT DISKUS) 50 mcg/dose Disk with Device Inhale 1 puff into the lungs 2 times daily. 06/19/2019 at Unknown time ??? albuterol (PROVENTIL) 2.5 mg /3 mL (0.083 %) Solution for Nebulization Take 2.5 mg by nebulization. Indications: every 4 to 6 hours as needed 06/19/2019 at Unknown time ??? loratadine (CLARITIN) 10 mg Tablet Take 10 mg by mouth daily as needed for Allergies. More thana month at Unknown time ??? triamterene-hydrochlorothiazide (DYAZIDE) 37.5-25 mg Capsule Take 2 capsules by mouth daily. 06/18/2019 at Unknown time ??? fluticasone propionate (FLONASE) 50 mcg/actuation [place], Suspension 2 sprays by Each Nare routedaily. 06/19/2019 at Unknown time ??? Magnesium Oxide 250 mg magnesium Tablet Take 2 tablets by mouth daily. Past Week at Unknown time ??? ferrous gluconate 240 mg (27 mg iron) Tablet Take 240 mg by mouth daily. 1 06/18/2019 at Unknowntime ??? omeprazole (PRILOSEC) 40 mg Capsule, Delayed Release(E.C.) take 1 capsule by mouth twice a day 0 06/19/2019 at Unknown time ??? LAXATIVE PEG 3350 17 gram/dose Powder TAKE 17 GRAMS MIXED DIRECTED BY MOUTH ONCE TO THREE TIMES DAILY DIRECTED 1 Past Week at Unknown time ??? alendronate (FOSAMAX) 70 mg Tablet Take 70 mg by mouth every 7 days. Indications: TAKES EITHER TUESDAY OR TUESDAY Past Month at Unknown time ??? multivitamin (THERAGRAN) Tablet Take 1 tablet by mouth daily. Past Week at Unknown time ??? acetaminophen (TYLENOL) 325 mg Tablet Take 650 mg by mouth every 6 hours as needed for Pain. More than a month at Unknown time ??? ubidecarenone/omega-3/vit E (CO U-66-TYPSSIZ E-FISH OIL ORAL) Take 1 tablet by mouth daily. Past Week at Unknown time Allergies: Allergies Allergen Reactions ??? Ketorolac Other (See Comments) Other reaction(s): black stools, nausea and vomting ??? Codeine Nausea Only ??? Hydrocodone Nausea Only ??? Hydromorphone Nausea Only ??? Tramadol Nausea Only Family History: Family History Problem Relation Age of Onset ??? Breast Cancer Neg Hx Social History and Habits: Social History Socioeconomic History ??? Marital status: Spouse name: Not on file ??? Number of children: Not on file ??? Years of education: Not on file ??? Highest education level: Not on file Occupational History ??? Not on file Social Needs ??? Financial resource strain: Not on file ??? Food insecurity: Worry: Not on file Inability: Not on file ??? Transportation needs: Medical: Not on file Non-medical: Not on file Tobacco Use ??? Smoking status: Never Smoker ??? Smokeless tobacco: Never Used Substance and Sexual Activity ??? Alcohol use: Yes Comment: SELDOM ??? Drug use: Never ??? Sexual activity: Not on file Lifestyle ??? Physical activity: Days per week: Not on file Minutes per session: Not on file ??? Stress: Not on file Relationships ??? Social connections: Talks on phone: Not on file Gets together: Not on file Attends mormonism service: Not on file Active member of club or organization: Not on file Attends meetings of clubs or organizations: Not on file Relationship status: Not on file ??? Intimate partner violence: Fear of current or ex partner: Not on file Emotionally abused: Not on file Physically abused: Not on file Forced sexual activity: Not on file Other Topics Concern ??? Not on file Social History Narrative ??? Not on file Problems this admission Active Problems: Hypotension ??? insulin lispro 1-4 Units Subcutaneous TID AC ??? sertraline 50 mg Oral Daily ??? sodium chloride 0.9 % (flush) 5 mL Intravenous BID ??? pantoprazole 40 mg Oral QAM AC Exam: Last value Range last 24 hrs Temperature Temp: 36.7 ??C (98.1 ??F) Temp: [36.3 ??C (97.3 ??F)-36.8 ??C (98.2 ??F)] Heart Rate Heart Rate: 72 Heart Rate: [63-109] Blood Pressure BP: 117/64 BP: (64-133)/(39-83) Respiratory Rate Resp: 18 Resp: [10-26] SpO2 SpO2: 100 % SpO2: [95 %-100 %] Art BP BP (Arterial Line): -- Intake/Output Summary (Last 24 hours) at 06/20/2019 1540 Last data filed at 06/20/2019 1400 Gross per 24 hour Intake 3792 ml Output 1010 ml Net 2782 ml PEx: Gen WDWN in NAD Neuro A/O, nonfocal Skin No rash HEENT PERRL, OP clear without thrush LNs No AC/PC/Ax GLENN Chest CTA without rales, wheezes or rhonchi Cor Without MRG Abd Soft, NT, +BS, without organomegaly MS No active synovitis Ext No clubbing, trace edema Psych Normal affect and demeanor Ventilator: on RA Labs/studies: Recent Labs 06/20/19 1047 06/20/19 0610 06/20/19 0040 WBC 5.9 7.1 8.5 HGB 7.6* 8.4* 5.7* HCT 21.3* 23.7* 16.6* PLATELET 141* 135* 148 NEUTROABS 3.93 5.44 7.33* Recent Labs 06/20/19 0040 06/19/19 2320 06/19/19 1513 NA 134* 132* 134* K 3.8 3.6 3.8 CL 101 101 97* CO2 22 20* 25 BUN 17 16 13 CREATININE 0.64* 0.60* 0.69* No results for input(s): AST, ALT, ALKPHOS, BILITOT, BILIDIR in the last 168 hours. Recent Labs 06/20/193906/19/19231906/19/19 1513 CALCIUM 7.1* 7.0* 9.0 MAGNESIUM 0.70 -- 0.80 PHOS 4.0 -- -- Recent Labs 06/20/19 0610 06/20/19 0016 06/19/192319 PT -- 14.0* 14.5* PTT -- 24* 23* FIBRINOGEN 158* -- -- No results for input(s): LDH, URICACID in the last 168 hours. ABG (Arterial Blood Gas) Lab Results Component Value Date pH Art 7.37 06/20/2019 pO2 Art 77 (L) 06/20/2019 pCO2 Art 33 (L) 06/20/2019 Microbiology Results (Last 30 days) Procedure Component Value Units Date/Time Staph aureus/MRSA Culture Screen Nasal [[id number]] Collected: 06/08/19 1302 Lab Status: Final result Specimen: Nasal Updated: 06/10/19 1211 Staphylococcus Screening Culture No Staphylococcus aureus isolated Overnight events: ?? Pt underwent JACQUIE ?? Transfused 2 units PRBCs ?? Weaned off pressors ?? CT scan of the right leg revealed hematoma with indeterminate extavasation ASSESSMENT, MANAGEMENT, and DECISION MAKING: Plan: ?? Neuro: No acute issues, h/o MDD on SSRI at home -Continue neuro checks -ok to continue home sertraline -pain control with PO oxy PRN with IV for brak through as needed -tylenol -PT/OT -avoid benzodiazepines ?? Cardio: No acute issues, HD stable off pressors -Continue to monitor ?? Pulmonary: H/o asthma -would cont home albuterol PRN -cont home Pulmicort -cont home montelukast -cont home salmeterol or equivalent -continuous pulse oximetry -IS 10x/hr -titrate FiO2 to keep sats greater than 92% ?? Gastrointestinal: No acute issues -would cont protonix for GI prophylaxis -advance diet as tolerated as no operative intervention planned for today -continue bowel regimen ?? /FEN: no acute issues -continue daily serum lytes -replete Mg to 1 -d/c elaine catheter -strict I&O ?? Heme/ID: Acute blood loss anemia, hemorrhagic shock now resolved, Hgb improved after 2u PRBC andoff pressors -serial cbc Q6 hours to f/u Hgb for concern re: continued bleeding into hematoma -transfuse for Hgb < 7 -will consider IR consult if Hgb continues to decrease -hold off on chemoprphylaxis for now -cont to monitor RLE for neurovascular compromise from hematoma -cont SCDs ?? Endocrine: no h/o of endocrinopathies; -would cont to monitor BG per protocol -hypoglycemia protocol -ISS IS PATIENT CRITICALLY ILL ? Is there a high potential of sudden, clinically significant, or life threatening deterioration? Yes Is there a need for direct personal assessment and management to treat/prevent multiple vital organfailure/deterioration? No PATIENT IS CRITICALLY ILL WITH THESE DIAGNOSES BEING MANAGED BY [facility] TEAM: Acidosis Lactic Anemia Acute blood loss Hypotension Arterial, Postoperative and With Shock Hypovolemic/Hemorrhagic Shock Hypovolemic/Hemorrhagic I personally performed 30 minutes of aggregate critical care time exclusive of procedures and teaching. This includes time spent during direct patient evaluation and reassessment, interpreting diagnostic tests, directing life and/or organ supporting interventions and documentation on the unit. Juan Richey MD VOICE RECOGNITION DISCLAIMER ?? This report has been created through the use of voice recognition software. Typographical and content errors may occur with this process. While efforts are made to correct such errors, in some cases, errors will persist. For this reason, wording in this documentation should be considered in the proper context and not strictly verbatim. If, when reviewing the document an error is discovered, please let the office know. documented in this encounter H&P Notes * Dyllan Grubbs MD - 06/20/2019 5:15 PM EDT Inpatient Hospital Medicine - Admission Note Problem List: Active Hospital Problems Diagnosis ??? Hypotension Resolved Hospital Problems No resolved problems to display. Active Non-Hospital Problems Diagnosis ??? Status post total hip replacement, right ??? Claustrophobia ??? Allergic rhinitis ??? Alopecia [...] Pain in joint, pelvic region and thigh ID: 74 y.o. Female presents to [facility] with hypotension and nausea after elective R JACQUIE today. History of Present Illness: HPI Per Dr. Pineda's H&P Jigna Espinoza ( ) is a 74 y.o. female with a history of HTN and asthma who presented on 06/19/2019 with postoperative hypotension.[facility] today for an electiveright total hip. The procedure was uncomplicated and there was no intraoperative pressor requirement. She received a spinal epidural for pain control. Postoperatively she became hypotensive and nauseous. She was resuscitated with 4L crystalloid. Lab values were significant for a hemoglobin drift from 12 to 10. Due to persistent hypotension, she was transferred to [facility]. On arrival, she was pale diaphorteic and shivering with systolic blood pressures in the 60s. A bedside echo was performed whichshowed hyperdynamic cardiac function, a small LV cavity with near obliteration at the end of systole, no valvular abnormalities, no effusion, a normal RV with normal function and an IVC collapsable in all phases of respiration. A CBC was obtained which revealed a hemoglboin of 5.9. Hospital Course: Jigna Espinoza is a 74 y.o. woman with PMH HTN and asthma admitted in transfer [facility] after an elective R JACQUIE complicated by postoperative hypotension suspected to be due to hemorrhagic shock in setting of postoperative hematomas. Pt [facility] for elective R JACQUIE for OA. The procedure was reportedly uncomplicated with 400cc EBL in the OR. PACU recovery was complicated by postoperative hypotension requiring low dose josh. She had 2 episodes of syncope in the PACU after a run of tachycardia. She received 4L IVFs and was pe rsistently hypotensive therefore transferred to the [facility] ICU for further management. On arrival shewas hypotensive to the 60s systolic requiring phenylephrine gtt. Hgb was found to be 5.9 (from 12) with tense hematoma in the R thigh. Bedside echo showed hyperdynamic function with collapsible IVC. She was transfused 2U pRBC and was quickly weaned off of pressors. CTA pelvis demonstrated moderate intra and extramuscular hematoma, unable to rule out active extravasation. She was managed conservatively with ice packs and serial H/H which stabilized in the 7.5-8.5 range. Transferred to hospital medicine for further management. Subjective: Pt reports feeling well overall, much improved compared to last night. Notes 4- 5/10 discomfort in the R hip, but tolerable. Was able to walk a short distance with PT today. Had no other complaints including dizziness, lightheadedness, chest pain, dyspnea, abd pain, nausea/vomiting, dysuria, diarrhea/constipation. Review of Systems: Review of Systems Constitutional: Negative. HENT: Negative. Eyes: Negative. Respiratory: Negative. Cardiovascular: Negative. Gastrointestinal: Negative. Endocrine: Negative. Genitourinary: Negative. Musculoskeletal: Positive for arthralgias. R hip pain Skin: Negative. Allergic/Immunologic: Negative. Neurological: Negative. Hematological: Negative. Psychiatric/Behavioral: Negative. All other systems reviewed and are negative. Past Medical and Surgical History: Past Medical History: Diagnosis Date ??? Asthma ??? Cancer bcc ??? Chronic pain ??? Claustrophobia 06/11/2019 ??? Gastroesophageal reflux ??? High blood pressure ??? Irregular heart beat PALPITATIONS ??? 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 Peptic ulcer disease 02/201904/04/2019 EGD SHOWED HEALED ULCER Past Surgical History: Procedure Laterality Date ??? APPENDECTOMY 1967 ??? CHOLECYSTECTOMY 1971 ??? COLONOSCOPY 04/04/2019 ??? CT GUIDED INJECTION SI JOINT 01/30/2019 CT Guided Injection SI Joint 01/30/2019 [facility] RAD CAT SCAN ??? CT GUIDED JOINT INJECTION 09/04/2018 CT Guided Joint Injection 09/04/2018 [facility] RAD CAT SCAN ??? HIP SURGERY 05/25/2017 ??? HYSTERECTOMY ??? OVARY REMOVAL ??? SPINAL FUSION 01/2018 ??? UPPER GASTROINTESTINAL ENDOSCOPY AND 04/04/2019 ??? XR FLUORO INJECTION DRAINAGE JOINT LG RIGHT Right 03/16/2019 XR Fluoro Guided Joint Injection Large Right 03/16/2019 [facility] RAD XRAY Prior To Admission Medications: Medications Prior to Admission Medication Sig Dispense Refill Last Dose ??? mupirocin (BACTROBAN) 2 % Ointment Apply small amount into each nostril 2 times a day x 5 days prior to surgery 22 g 0 06/19/2019 at Unknown time ??? potassium chloride (K-DUR/KLOR-CON) 10 mEq Tablet Sustained Release Take 20 mEq by mouth 2 times daily. 0 06/18/2019 at Unknown time ??? sertraline (ZOLOFT) 50 mg Tablet Take 1 tablet by mouth daily. 0 06/18/2019 at Unknown time ??? celecoxib (CELEBREX) 200 mg Capsule 200 mg daily. 1 06/18/2019 at Unknown time ??? albuterol (PROVENTIL HFA) 90 mcg/actuation HFA Aerosol Inhaler 2 puffs every 4 hours as needed.06/19/2019 at Unknown time ??? budesonide (PULMICORT FLEXHALER) 180 mcg/actuation Aerosol Powdr Breath Activated Inhale 1 puffinto the lungs 2 times daily. 06/19/2019 at Unknown time ??? montelukast (SINGULAIR) 10 mg Tablet Take 10 mg by mouth daily. 06/19/2019 at Unknown time ??? salmeterol (SEREVENT DISKUS) 50 mcg/dose Disk with Device Inhale 1 puff into the lungs 2 times daily. 06/19/2019 at Unknown time ??? albuterol (PROVENTIL) 2.5 mg /3 mL (0.083 %) Solution for Nebulization Take 2.5 mg by nebulization. Indications: every 4 to 6 hours as needed 06/19/2019 at Unknown time ??? loratadine (CLARITIN) 10 mg Tablet Take 10 mg by mouth daily as needed for Allergies. More thana month at Unknown time ??? triamterene-hydrochlorothiazide (DYAZIDE) 37.5-25 mg Capsule Take 2 capsules by mouth daily. 06/18/2019 at Unknown time ??? fluticasone propionate (FLONASE) 50 mcg/actuation [place], Suspension 2 sprays by Each Nare routedaily. 06/19/2019 at Unknown time ??? Magnesium Oxide 250 mg magnesium Tablet Take 2 tablets by mouth daily. Past Week at Unknown time ??? ferrous gluconate 240 mg (27 mg iron) Tablet Take 240 mg by mouth daily. 1 06/18/2019 at Unknowntime ??? omeprazole (PRILOSEC) 40 mg Capsule, Delayed Release(E.C.) take 1 capsule by mouth twice a day 0 06/19/2019 at Unknown time ??? LAXATIVE PEG 3350 17 gram/dose Powder TAKE 17 GRAMS MIXED DIRECTED BY MOUTH ONCE TO THREE TIMES DAILY DIRECTED 1 Past Week at Unknown time ??? alendronate (FOSAMAX) 70 mg Tablet Take 70 mg by mouth every 7 days. Indications: TAKES EITHER TUESDAY OR TUESDAY Past Month at Unknown time ??? multivitamin (THERAGRAN) Tablet Take 1 tablet by mouth daily. Past Week at Unknown time ??? acetaminophen (TYLENOL) 325 mg Tablet Take 650 mg by mouth every 6 hours as needed for Pain. More than a month at Unknown time ??? ubidecarenone/omega-3/vit E (CO V-[id number] E-FISH OIL ORAL) Take 1 tablet by mouth daily. Past Week at Unknown time Allergies: Allergies Allergen Reactions ??? Ketorolac Other (See Comments) Other reaction(s): black stools, nausea and vomting ??? Codeine Nausea Only ??? Hydrocodone Nausea Only ??? Hydromorphone Nausea Only ??? Tramadol Nausea Only Family History: Family History Problem Relation Age of Onset ??? Breast Cancer Neg Hx Social History and Habits: Social History Socioeconomic History ??? Marital status: Spouse name: Not on file ??? Number of children: Not on file ??? Years of education: Not on file ??? Highest education level: Not on file Occupational History ??? Not on file Social Needs ??? Financial resource strain: Not on file ??? Food insecurity: Worry: Not on file Inability: Not on file ??? Transportation needs: Medical: Not on file Non-medical: Not on file Tobacco Use ??? Smoking status: Never Smoker ??? Smokeless tobacco: Never Used Substance and Sexual Activity ??? Alcohol use: Yes Comment: SELDOM ??? Drug use: Never ??? Sexual activity: Not on file Lifestyle ??? Physical activity: Days per week: Not on file Minutes per session: Not on file ??? Stress: Not on file Relationships ??? Social connections: Talks on phone: Not on file Gets together: Not on file Attends mormonism service: Not on file Active member of club or organization: Not on file Attends meetings of clubs or organizations: Not on file Relationship status: Not on file ??? Intimate partner violence: Fear of current or ex partner: Not on file Emotionally abused: Not on file Physically abused: Not on file Forced sexual activity: Not on file Other Topics Concern ??? Not on file Social History Narrative ??? Not on file Immunizations: There is no immunization history on file for this patient. Physical Exam: Last Set of Vitals and range of vitals over past 24 hours: Last value Range last 24 hrs Temperature Temp: 36.3 ??C (97.3 ??F) Temp: [36.3 ??C (97.3 ??F)-36.8 ??C (98.2 ??F)] Heart Rate Heart Rate: 66 Heart Rate: [63-109] Blood Pressure BP: (!) 89/50 BP: (62-168)/(39-84) Respiratory Rate Resp: 12 Resp: [10-27] SpO2 SpO2: 98 % SpO2: [94 %-100 %] Body mass index is 24.48 kg/m??. Physical Exam Constitutional: She is oriented to person, place, and time. She appears well- developed and well-nourished. No distress. HENT: Head: Normocephalic and atraumatic. Mouth/Throat: No oropharyngeal exudate. Eyes: Pupils are equal, round, and reactive to light. EOM are normal. No scleral icterus. Neck: Normal range of motion. Neck supple. Cardiovascular: Normal rate and regular rhythm. No murmur heard. Pulmonary/Chest: Effort normal and breath sounds normal. No stridor. No respiratory distress. She has no wheezes. She has no rales. Abdominal: Soft. Bowel sounds are normal. She exhibits no distension. There is no tenderness. Musculoskeletal: She exhibits edema and tenderness. R thigh with surgical site dressings in place, c/d/i, hematoma TTP, compartments soft; entire RLE edematous Neurological: She is alert and oriented to person, place, and time. No cranial nerve deficit. Skin: Skin is warm and dry. She is not diaphoretic. R thigh hematoma Psychiatric: She has a normal mood and affect. Nursing note and vitals reviewed. Laboratory (Last 24 Hours): Recent Results (from the past 24 hour(s)) Troponin Result Value Ref Range Troponin-T <0.01 0.00 - 0.00 ng/mL Hemogram Result Value Ref Range WBC 9.7 (H) 4.0 - 9.5 x10(3)/mcL RBC 3.30 (L) 4.00 - 5.21 x10(6)/mcL Hemoglobin 10.4 (L) 11.7 - 15.5 gm/dL Hematocrit 30.1 (L) 35.7 - 45.8 % MCV 91.2 82.6 - 94.4 fL MCH 31.5 27.1 - 32.0 pg MCHC 34.6 31.7 - 35.0 gm/dL Platelets 227 145 - 357 x10(3)/mcL RDWSD 44.1 37.0 - 46.0 fL RDWCV 13.0 11.5 - 14.1 % MPV 10.2 7.6 - 12.9 fL Differential, Automated Result Value Ref Range Neutrophils % 88.4 % Neutr Abs (ANC) 8.28 (H) 1.70 - 6.10 x10(3)/mcL Lymphocytes % 7.8 % Lymphocytes Abs 0.7 (L) 0.9 - 3.2 x10(3)/mcL Monocytes % 2.2 % Monocyte Abs 0.2 (L) 0.3 - 0.9 x10(3)/mcL Eosinophils % 0.9 % Eosinophils Abs 0.1 0.0 - 0.4 x10(3)/mcL Basophils % 0.3 % Basophils Abs 0.0 0.0 - 0.1 x10(3)/mcL Immature Gran % 0.40 % Estefany Gran Abs 0.04 0.00 - 0.04 x10(3)/mcL Magnesium Result Value Ref Range Magnesium 0.80 0.69 - 1.07 mmol/L Basic Metabolic Panel (non-fasting) Result Value Ref Range Glucose Lvl 120 65 - 199 mg/dL BUN 13 8 - 18 mg/dL Creatinine 0.69 (L) 0.70 - 1.20 mg/dL Sodium 134 (L) 135 - 145 mmol/L Potassium 3.8 3.5 - 5.0 mmol/L Chloride 97 (L) 98 - 107 mmol/L CO2 25 22 - 31 mmol/L Anion Gap 12 5 - 15 mmol/L Calcium 9.0 8.5 - 10.5 mg/dL eGFR 85 >=60 mL/min/1.73 m?? eGFR 99 >=60 mL/min/1.73 m?? Troponin Result Value Ref Range Troponin-T <0.01 0.00 - 0.00 ng/mL POCT Glucose Result Value Ref Range POC Glucose 233 (H) 65 - 199 mg/dL Radiology: CTA pelvis 06/20/19 ?? IMPRESSION Moderate-sized intra-muscular and extra-muscular hematomas within the thigh and about the pelvis. Multiple foci of hyperdensity within the upper thigh and about the pelvis of indeterminate etiology; osseous fragments related to procedure with a consideration although active extravasation cannot be convincingly excluded given this appearance as well as the hematomas. XR pelvis and R femur 06/20/19 IMPRESSION 1. Status post right total hip arthroplasty with no evidence of periprosthetic fracture or dislocation. 2. Known intramuscular hematoma is better appreciated on CT angiogram and pelvis from today. Other Studies: EKG 06/20/19 Sinus tachycardia Left axis deviation Possible Anteroseptal infarct Abnormal ECG Assessment: Jigna Espinoza is a 74 y.o. woman with PMH of asthma, HTN, OA, depression admitted [facility] after elective R JACQUIE c/b postoperative hemorrhagic/hypovolemic shock in setting of postop hematoma. #Intramuscular hematoma s/p R JACQUIE #Hemorrhagic/hypovolemic shock resolved - monitor H/H, space out to q8h - hold DVT ppx - ice - appreciate orthopedic surgery recommendations - if concern for worsening bleeding, would contact IR #R JACQUIE - appreciate ortho recs - PT/OT - tylenol PRN pain #Hx asthma - home singulair #Hx HTN - holding dyazide for now #Hx depression - zoloft #GERD - ppi Plan: ?? Admit to hospital medicine ?? Physical Therapy referral ?? DVT Prophylaxis on hold ?? If currently a smoker - advised about smoking cessation and will provide smoking cessation material and support. ?? Pneumovax and Influenza Immunizations given as needed. ?? Discussed Advanced Directives and Code Status. The patient wishesto be Full Code. A copy of this document will be sent to the patient's Primary Care Physician and/or Referring Physician. BEVERLY MONTANA MD 06/19/2019 * Vitor Pineda MD - 06/20/2019 12:33 AM EDT CRITICAL CARE SERVICE ADMISSION HISTORY AND PHYSICAL History of Present Illness: Jigna Espinoza ( ) is a 74 y.o. female with a history ofHTN and asthma who presented on 06/19/2019 with postoperative hypotension.[facility] today for an elective right total hip. The procedure was uncomplicated and there was no intraoperative pressor requirement. She received a spinal epidural for pain control. Postoperatively she became hypotensive and nauseous. She was resuscitated with 4L crystalloid. Lab values were significant for a hemoglobin drift from 12 to 10. Due to persistent hypotension, she was transferred to [facility].On arrival, she was pale diaphorteic and shivering with systolic blood pressures in the 60s. A bedside echo was performed which showed hyperdynamic cardiac function, a small LV cavity with near obliteration at the end of systole, no valvular abnormalities, no effusion, a normal RV with normal function and an IVC collapsable in all phases of respiration. A CBC was obtained which revealed a hemoglboin of 5.9. Review of Systems: Positive as above, otherwise negative. Past Medical History: Past Medical History: Diagnosis Date ??? Asthma ??? Cancer bcc ??? Chronic pain ??? Claustrophobia 06/11/2019 ??? Gastroesophageal reflux ??? High blood pressure ??? Irregular heart beat PALPITATIONS ??? 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 Peptic ulcer disease 02/201904/04/2019 EGD SHOWED HEALED ULCER Past Surgical History: Past Surgical History: Procedure Laterality Date ??? APPENDECTOMY 1967 ??? CHOLECYSTECTOMY 1971 ??? COLONOSCOPY 04/04/2019 ??? CT GUIDED INJECTION SI JOINT 01/30/2019 CT Guided Injection SI Joint 01/30/2019 [facility] RAD CAT SCAN ??? CT GUIDED JOINT INJECTION 09/04/2018 CT Guided Joint Injection 09/04/2018 [facility] RAD CAT SCAN ??? HIP SURGERY 05/25/2017 ??? HYSTERECTOMY ??? OVARY REMOVAL ??? SPINAL FUSION 01/2018 ??? UPPER GASTROINTESTINAL ENDOSCOPY AND 04/04/2019 ??? XR FLUORO INJECTION DRAINAGE JOINT LG RIGHT Right 03/16/2019 XR Fluoro Guided Joint Injection Large Right 03/16/2019 [facility] RAD XRAY Allergies: Allergies Allergen Reactions ??? Ketorolac Other (See Comments) Other reaction(s): black stools, nausea and vomting ??? Codeine Nausea Only ??? Hydrocodone Nausea Only ??? Hydromorphone Nausea Only ??? Tramadol Nausea Only Home Medications: Medications Prior to Admission Medication Sig Dispense Refill Last Dose ??? mupirocin (BACTROBAN) 2 % Ointment Apply small amount into each nostril 2 times a day x 5 days prior to surgery 22 g 0 06/19/2019 at Unknown time ??? potassium chloride (K-DUR/KLOR-CON) 10 mEq Tablet Sustained Release Take 20 mEq by mouth 2 times daily. 0 06/18/2019 at Unknown time ??? sertraline (ZOLOFT) 50 mg Tablet Take 1 tablet by mouth daily. 0 06/18/2019 at Unknown time ??? celecoxib (CELEBREX) 200 mg Capsule 200 mg daily. 1 06/18/2019 at Unknown time ??? albuterol (PROVENTIL HFA) 90 mcg/actuation HFA Aerosol Inhaler 2 puffs every 4 hours as needed.06/19/2019 at Unknown time ??? budesonide (PULMICORT FLEXHALER) 180 mcg/actuation Aerosol Powdr Breath Activated Inhale 1 puffinto the lungs 2 times daily. 06/19/2019 at Unknown time ??? montelukast (SINGULAIR) 10 mg Tablet Take 10 mg by mouth daily. 06/19/2019 at Unknown time ??? salmeterol (SEREVENT DISKUS) 50 mcg/dose Disk with Device Inhale 1 puff into the lungs 2 times daily. 06/19/2019 at Unknown time ??? albuterol (PROVENTIL) 2.5 mg /3 mL (0.083 %) Solution for Nebulization Take 2.5 mg by nebulization. Indications: every 4 to 6 hours as needed 06/19/2019 at Unknown time ??? loratadine (CLARITIN) 10 mg Tablet Take 10 mg by mouth daily as needed for Allergies. More thana month at Unknown time ??? triamterene-hydrochlorothiazide (DYAZIDE) 37.5-25 mg Capsule Take 2 capsules by mouth daily. 06/18/2019 at Unknown time ??? fluticasone propionate (FLONASE) 50 mcg/actuation [place], Suspension 2 sprays by Each Nare routedaily. 06/19/2019 at Unknown time ??? Magnesium Oxide 250 mg magnesium Tablet Take 2 tablets by mouth daily. Past Week at Unknown time ??? ferrous gluconate 240 mg (27 mg iron) Tablet Take 240 mg by mouth daily. 1 06/18/2019 at Unknowntime ??? omeprazole (PRILOSEC) 40 mg Capsule, Delayed Release(E.C.) take 1 capsule by mouth twice a day 0 06/19/2019 at Unknown time ??? LAXATIVE PEG 3350 17 gram/dose Powder TAKE 17 GRAMS MIXED DIRECTED BY MOUTH ONCE TO THREE TIMES DAILY DIRECTED 1 Past Week at Unknown time ??? alendronate (FOSAMAX) 70 mg Tablet Take 70 mg by mouth every 7 days. Indications: TAKES EITHER TUESDAY OR TUESDAY Past Month at Unknown time ??? multivitamin (THERAGRAN) Tablet Take 1 tablet by mouth daily. Past Week at Unknown time ??? acetaminophen (TYLENOL) 325 mg Tablet Take 650 mg by mouth every 6 hours as needed for Pain. More than a month at Unknown time ??? ubidecarenone/omega-3/vit E (CO I-39-[id number] E-FISH OIL ORAL) Take 1 tablet by mouth daily. Past Week at Unknown time Family History: Family History Problem Relation Age of Onset ??? Breast Cancer Neg Hx Social History: Social History Socioeconomic History ??? Marital status: Spouse name: Not on file ??? Number of children: Not on file ??? Years of education: Not on file ??? Highest education level: Not on file Occupational History ??? Not on file Social Needs ??? Financial resource strain: Not on file ??? Food insecurity: Worry: Not on file Inability: Not on file ??? Transportation needs: Medical: Not on file Non-medical: Not on file Tobacco Use ??? Smoking status: Never Smoker ??? Smokeless tobacco: Never Used Substance and Sexual Activity ??? Alcohol use: Yes Comment: SELDOM ??? Drug use: Never ??? Sexual activity: Not on file Lifestyle ??? Physical activity: Days per week: Not on file Minutes per session: Not on file ??? Stress: Not on file Relationships ??? Social connections: Talks on phone: Not on file Gets together: Not on file Attends mormonism service: Not on file Active member of club or organization: Not on file Attends meetings of clubs or organizations: Not on file Relationship status: Not on file ??? Intimate partner violence: Fear of current or ex partner: Not on file Emotionally abused: Not on file Physically abused: Not on file Forced sexual activity: Not on file Other Topics Concern ??? Not on file Social History Narrative ??? Not on file Vitals: Last value Range last 24 hrs Temperature Temp: 36.5 ??C (97.7 ??F) Temp: [36.3 ??C (97.3 ??F)-36.8 ??C (98.2 ??F)] Heart Rate Heart Rate: 89 Heart Rate: [63-109] Cuff BP BP: 101/61 BP: (62-168)/(39-84) Arterial BP BP (Arterial Line): -- CVP CVP: -- Respiratory Rate Resp: 11 Resp: [10-27] SpO2 SpO2: 100 % SpO2: [94 %-100 %] Vent: Mode PEEP PS FiO2 Rate TV MV ABG: No results for input(s): PHART, [id number], PO2ART, SIQ0WNX in the last 168 hours. Physical Exam: General: Diaphoretic, shivering, Neurological: Awake, alert, responds to questions appropriately. CV: +S1S2, normal rate and rhythm, no murmur. Pulm: Normal effort, lung cho clear to auscultation bilaterally. No wheezes or rales. Abd: soft, non-distended, no peritoneal signs. Musculoskeletal: RLE hip tense with ecchymosis Skin: warm and dry. Labs: Recent Labs 06/20/19 0040 06/20/191506/19/192319 WBC 8.5 8.6 9.2 HGB 5.7* 6.0* 5.9* HCT 16.6* 18.0* 16.6* PLATELET 148 137* 136* Recent Labs 06/20/191506/19/192319 PT 14.0* 14.5* PTT 24* 23* INR 1.2 1.3 Recent Labs 06/19/19231906/19/19 1513 NA 132* 134* K 3.6 3.8 CL 101 97* CO2 20* 25 BUN 16 13 CREATININE 0.60* 0.69* GLUCOSE 209* 120 Recent Labs 06/19/19231906/19/19 1513 CALCIUM 7.0* 9.0 MAGNESIUM -- 0.80 No results for input(s): AST, ALT, ALKPHOS, BILITOT, BILIDIR, AMYLASE, LIPASE in the last 168 hours. No results for input(s): PHART, ZEB3XJA, PO2ART, ADZ2BSQ, BEART in the last 168 hours. Lactate: 2.12 CBC Q4 2 U PBBRC Josh Zulma CTA when stable Ortho consult Q1hr neurovascular checks DC lovenox Minimize IVF, resusitate with blood Assessment: 74 y.o. female POD #0 s/p right total hip presenting with hypotension and acute blood loss anemia. Bedside echo revealed hyperdynamic function and a collapsible IVC suggesting hypovolemia. Her right hip is tense and ecchymotic. After she is adequately resuscitated with blood product and hemodynamically stable, she will need a CTA pelvis and RLE to determine if there is active extravasation. Plan: - Neuro: -pain: acetaminophen -neurovascular checks: Q1 hour CV: -2 U PBRC -pressors: phenylephrine in line -goal MAP >65 -If no response to PBRC, place A-line Pulm: -IS -Alburerol GI: -Diet: NPO diet (Give Meds). -Stress ulcer prophylaxis: Protonix. /FEK: -mIVFs: LR @ 100hr -goal UOP / fluid goal: euvolemia -zofran MSK: -s/p R TH: Q1 hour neurovascular, -CTA Pelvis, RLE when HDS ID: -abx: non indicated Heme: -hgb: 5.9 -Q4 hour CBC -SCDs -Hold chemoprophylaxis Endo: -no active issues. Activity: -Bed rest Lines: -PIV, elaine catheter Primary Service: Hospital Medicine Consults: -Orthopedics -PT -OT -CRC Code Status: Full Code Dispo: -admit to ICU, Critical Care Red 2 Team Vitor Pineda MD 06/20/2019 Associated attestation - Juancarlos Ayers MD - 06/20/2019 2:21 AM EDT Attending Attestation I have seen the patient and reviewed the resident's history above and I agree with the details except as noted. The assessment and plan were formulated in discussion with me and I agree with them as documented. Pertinent History: Jigna Espinoza is a 74 y.o. female with h/o HTN and asthma s/p elective right JACQUIE on the [facility] of [facility]19/19 [facility] under spinal anesthesia, who developed postoperative hypotension, found to have Hgb 5.9 and tense hematoma in right thigh, admitted to the SICU for hemodynamic support. Intraoperative course was uneventful, patient tolerated spinal with 12.5mg bupivacaine and low dose propofol gtt with no vasopressor requirement. Starting Hgb 12, and patient had received ~4L fluids over the course of the day. Bedside TTE showed hyperdynamic LV, LVEF ~70-80%, mild LVH, no significant valvular abnormalities, IVC < 1cm with significant respirophasic variation. Pertinent Exam: Gen: pale, fatigued, lying supine in bed N: resting, but communicating and mentating appropriately. Moving all extremities CV: RRR, no MRG R: CTAB Abd: soft, NT, ND Ext: right thigh swollen and tense, mild ecchymosis. palpable b/l pedal pulses TLD: PIV Troponin negative INR 1.2, PTT 24, Fibrinogen pending Plan: 74 y.o. female s/p elective right JACQUIE transferred from the ISCU to the SICU for hemorrhagic and hypovolemic shock, requiring urgent transfusion, and phenylephrine gtt to support until blood is available. Reassuringly, patient is mentating well, though very fatigued and intermittently nauseous. No significant coagulopathy; fibrinogen pending. Her swollen and tense right thigh is concerning for potentially expanding hematoma (though likely tamponaded by this time), but reassuringly has intact distal pulses. Plan to monitor q1h neurovascular checks in her right leg, obtain CT scan of leg. Ask orthopedic team to reassess right thigh. - Code status: Full Code - Prophylaxis: SCD's, hold chemoprophylaxis for now in setting of hemorrhagic shock - Primary: Hospital medicine with orthopedic consult Dispo: SICU //////////////////////////////////////////////////////////////////////////////// //// Attestation: IS PATIENT CRITICALLY ILL ? Is there a high potential of sudden, clinically significant, or life threatening deterioration? yes Is there a need for direct personal assessment and management to treat/prevent multiple vital organfailure/deterioration? yes PATIENT IS CRITICALLY ILL WITH THESE DIAGNOSES BEING MANAGED BY [facility] TEAM: Hemorrhagic shock Hypovolemic shock Acute blood loss anemia I personally performed 82min of aggregate critical care time exclusive of procedures and teaching. This includes time spent during direct patient evaluation and reassessment, interpreting diagnostic tests, directing life and/or organ supporting interventions and documentation on the unit. Juancarlos Ayers MD documented in this encounter Miscellaneous Notes * Plan of Care - Lorena Trinh, PT - 06/21/2019 4:06 PM EDT Physical Therapy Note Treatment Number PT: 2 Patient profile: Jigna Espinoza is a 74 y.o. R handed female admitted on 06/19/[address] Roque Rolle MD s/p anterior JACQUIE by Dr Soto at [facility]. Hypotension post op requiring transfer to [facility] and fluid resuscitation. On pressors briefly and received [address] [facility].+R thigh hematoma. ?? Patient with the following active problems: Past Medical History: Diagnosis Date ??? Asthma ? Cancer ? bcc ??? Chronic pain ? Claustrophobia 06/11/2019 ??? Gastroesophageal reflux ? High blood pressure ? Irregular heart beat ? PALPITATIONS ??? 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 Peptic ulcer disease 02/2019 ?? 04/04/2019 EGD SHOWED HEALED ULCER ?? Past Surgical History: Procedure Laterality Date ??? APPENDECTOMY ?? 1967 ??? CHOLECYSTECTOMY ?? 1971 ??? COLONOSCOPY ?? 04/04/2019 ??? CT GUIDED INJECTION SI JOINT ?? 01/30/2019 ?? CT Guided Injection SI Joint 01/30/2019 [facility] RAD CAT SCAN ??? CT GUIDED JOINT INJECTION ?? 09/04/2018 ?? CT Guided Joint Injection 09/04/2018 [facility] RAD CAT SCAN ??? HIP SURGERY ?? 05/25/2017 ? HYSTERECTOMY ? OVARY REMOVAL ? SPINAL FUSION ?? 01/2018 ??? UPPER GASTROINTESTINAL ENDOSCOPY ?? AND 04/04/2019 ??? XR FLUORO INJECTION DRAINAGE JOINT LG RIGHT Right 03/16/2019 ?? XR Fluoro Guided Joint Injection Large Right 03/16/2019 [facility] RAD XRAY ?? Social History: Home set-up: Lives in a 1 level home with her spouse who is home art class model. Bathroom Set-up: walk in shower with seat Stairs: 1+1 MEKA Baseline Mobility: independent, uses cane when out of the home, had leg length discrepancy after gluteal tear and surgery, +driving, cooking, cleaning, laundry Equipment at home: cane, FWW, shower seat Fall history: none ?? Precautions/Special Considerations: fall, skin breakdown risk Lines: PIV R UE Activity Orders: WBAT Diet: NPO ?? Mobility and Positioning Recommendations: ?? Pt. to utilize FWW and supervision for transfers with nursing. ?? Please encourage up to chair for meal times as able. ?? Hypotensive this date and would recommend transfers only until BPs improve. Subjective: I feel pretty good. Objective: Patient seen for physical therapy and demonstrated the following: Pain: Number Location At rest 5/10 R hip With activity 5/10 R hip Vital Signs: BP pre activity: 125/55(72) BP post activity: 138/78(93) Cognition/Vision: intact Bed Mobility: Supine to Sit: independent with increased time Sit to Supine: independent with increased time, instructed in leg service associate use Transfers: Sit to Stand: modified independent using rolling walker Stand to Sit: modified independent using rolling walker Bed to Chair: NT Gait: Distance: 100' Device used: rolling walker Level of assist: modified independent Gait mechanics: swing through, mild antalgia Stairs: 1(6) stairs x3 reps with supervision, initial instruction in technique, pt able to verbalize technique, L UE support on rail, R support by therapist, discussed technique for home Balance: Sitting Static: good Sitting Dynamic: good Standing Static: fair to good Standing Dynamic / Gait: fair to good Education: leg service associate use, assistive devices, car transfers, outpatient physical therapy follow up,ice Therex: issued handout and performed x10 reps each of the following with intermittent cues, quad sets, gluteal sets, ankle pumps, heel slides with leg service associate and with active assistance from therapist, attempted seated hip flexion however pt having too much pain, deferred hamstring set and LAQ due to quad pain from hematoma. Pt left supine in bed following visit. Call maria in reach and RN aware of patient progress. Assessment: Jigna Espinoza was seen today for physical therapy treatment session for continuationof POC. Pt with much improved hemodynamic response. No dizziness or hypotension throughout session.Mobilizing with conditional independence without a device. Pt has met all goals of acute PT. While she would benefit from home PT, she would prefer outpatient. Recommend discharge to home with support from spouse and home PT once medically cleared. Discharge Recommendations: Based on the current findings, Anticipated Discharge Disposition: home with assist, home with outpatient services when medically ready for hospital discharge. Consult Recommendations: No other consults recommended at this time. Equipment needs: Patient has all necessary equipment Physical Therapy Goals: To be achieved by 06/23/19: ALL MET 06/21/19 ?? 1. Pt. to demonstrate knowledge of safety limitations and precautions and will appropriately request assistance for functional activities and to mobilize. 2. Pt. to demonstrate understanding of appropriate R LE exercises. 3. Pt. to perform bed mobility independently. 4. Pt. to perform stand step transfers with modified independence using a front wheeled walker. 5. Pt. to ambulate 150 feet with modified independence using a a front wheeled walker. 6. Pt. to ambulate up/down 1 step/stairs using front wheeled walker with CGA. 7. Pt will tolerate progression towards upright with stable vital signs. ?? Plan: Therapy Frequency: monitor. Patient agrees with plan as stated. Time IN / OUT: 1332-4064 Total Evaluation Minutes, Physical Therapy: 40(1 therex, 2 GT) LORENA TRINH, PT Pager: [phone] Physical Therapy Inpatient Rehabilitation Department * Plan of Care - Jose Roberto Cortes - 06/21/2019 5:29 AM EDT Problem: Patient Care Overview Goal: Plan of Care Review 06/21/19 0527 Plan of Care Review Progress progress towards functional goals is fair Coping/Psychosocial Plan Of Care Reviewed With patient OUTCOME EVALUATION NOTE: OUTCOME SUMMARY: Patient rested well most of the evening. Increasing pain in RLE this morning. Covering MD paged forpain med adjustment. Awaiting orders. Mobilizing well w/ 1 assist. Q4H VS & neurovascular checks completed. Awaiting floor bed. CAHTO Trujillo-CCRN * Plan of Care - Zeferino Tate OT - 06/20/2019 1:31 PM EDT Occupational Therapy Evaluation Patient profile: Jigna Espinoza is a 74 y.o. R handed female admitted on 06/19/[address] Roque Rolle MD s/p anterior JACQUIE by Dr Soto at [facility]. Hypotension post op requiring transfer to [facility] and fluid resuscitation. On pressors briefly and received [address] [facility].+R thigh hematoma. Past Medical History: Diagnosis Date ??? Asthma ??? Cancer bcc ??? Chronic pain ??? Claustrophobia 06/11/2019 ??? Gastroesophageal reflux ??? High blood pressure ??? Irregular heart beat PALPITATIONS ??? 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 Peptic ulcer disease 02/201904/04/2019 EGD SHOWED HEALED ULCER Past Surgical History: Procedure Laterality Date ??? APPENDECTOMY 1967 ??? CHOLECYSTECTOMY 1971 ??? COLONOSCOPY 04/04/2019 ??? CT GUIDED INJECTION SI JOINT 01/30/2019 CT Guided Injection SI Joint 01/30/2019 [facility] RAD CAT SCAN ??? CT GUIDED JOINT INJECTION 09/04/2018 CT Guided Joint Injection 09/04/2018 [facility] RAD CAT SCAN ??? HIP SURGERY 05/25/2017 ??? HYSTERECTOMY ??? OVARY REMOVAL ??? SPINAL FUSION 01/2018 ??? UPPER GASTROINTESTINAL ENDOSCOPY AND 04/04/2019 ??? XR FLUORO INJECTION DRAINAGE JOINT LG RIGHT Right 03/16/2019 XR Fluoro Guided Joint Injection Large Right 03/16/2019 [facility] RAD XRAY Social History: Patient lives with her in a 1 level home with 1+1 step to enter. The bathroom has a walk inshower with a seat. DME: shower seat, cane, FWW Baseline ADL/Mobility: fully independent, uses a cane outdoors. Precautions/Special Considerations: fall risk, WBAT Subjective: This isn't the way I thought it would be. Objective: Seen today for OT evaluation. Cognitive Status/Behavior: ?? Behavior / Mood: alert and cooperative ?? Alert and oriented to: person, place, time and situation ?? Follows commands: multi step ?? Attention: WFL ?? Safety awareness: WFL Vision & Perception: ?? WNL/WFL Communication: WFL Range of motion, strength, coordination: BUEs are within functional limitations for ADL BLEs moving against gravity Sensation: denies deficits Activities of Daily Living: Self-feeding: anticipate seated with set up (currently NPO) Grooming: seated with set up Dressing: mod A for socks Toileting: elaine in place, anticipate min A for toileting Functional Mobility: Supine to sit: supervision with HOB slightly raised Sit to stand: supervision with walker Ambulation: ~15 ft with CGA and walker Stand to sit: supervision Sit to supine: not observed Balance: Sitting balance: good Standing balance: good with walker IADL???s: Assistance available to patient. Vitals: At Rest With Activity SpO2 98% RA 98% Heart Rate 78 92 Blood Pressure 102/61 81/49 standing 91/50 after settling in the chair Pain: minimal c/o pain Education: patient have been educated on Role of occupational therapy/rehabilitation, ADL, Positioning, Safety, Precautions/Protocol, Functional Mobility and Recommendations and verbalizes understanding. Patient status, treatment, and mobility recommendations discussed with nursing. Assessment: Pt has been seen for occupational therapy evaluation. Jigna Espinoza presents with the following performance skill deficits and client factors: increased pain, decreased activity tolerance, decreased flexibility/ROM, decreased strength, hemodynamic instability and precautions/bracing.These performance deficits have led to activity limitations and participation restrictions in the following areas of occupation: dressing, bathing, toileting, transfers/mobility and home management. Pt very motivated to participate, limited by symptomatic hypotension. Pt would benefit from further inpatient OT interventions to address performance deficits and maximize participation and independence with occupations of daily living. Equipment needs at discharge: TBD Anticipated Discharge Disposition: (TBD pending progress) - likely home with assist from family Other Recommendations: ?? Utilize upright chair position using bed features or transfer to recliner chair as appropriate with CGA, ambulate as tolerated ?? Encourage participation in ADL's by providing set up A on tray table and physical assist only asneeded Goals: To be achieved by 07/03/19 Pt will demonstrate independence with precautions/restrictions during ADLs. Pt will perform standing ADLs with supervision only. Pt will dress self independently using adaptive technique/equipment as needed. Pt will ambulate independently for ADLs, assistive device as needed. Plan: OT: Therapy Frequency: 2-3 times/wk Planned OT interventions: Role of occupational therapy/rehabilitation, Assistive device/technique, ADL, Positioning, Safety, Precautions/Protocol, Functional Mobility, Activity pacing/Energy conservation, Home Management, Recommendations and Discharge planning. Total Evaluation Minutes, Occupational Therapy: 30(eval) 2016 OT Evaluation Code Rationale: ?? Diagnosis & Pertinent Co-Morbidities affecting Plan of Care: see PMHx ?? Occupational Profile & Client History: Brief Expanded Extensive X ?? Assessment of Occupational Performance: 1-3 performance deficits 3-5 performance deficits 5 + performance deficits X ?? Clinical Decision Making: Low Moderate High X Clinical decision making of high complexity using standardized patient assessment instrument and measurable assessment of functional outcome. Pager: [phone] ZEFERINO TATE OT 06/20/2019 Occupational Therapy Rehabilitation Department * Plan of Care - Lorena Trinh, PT - 06/20/2019 10:24 AM EDT Physical Therapy Evaluation Patient profile: Jigna Espinoza is a 74 y.o. R handed female admitted on 06/19/[address] Roque Rolle MD s/p anterior JACQUIE by Dr Soto at [facility]. Hypotension post op requiring transfer to [facility] and fluid resuscitation. On pressors briefly and received [address] [facility].+R thigh hematoma. Patient with the following active problems: Past Medical History: Diagnosis Date ??? Asthma ??? Cancer bcc ??? Chronic pain ??? Claustrophobia 06/11/2019 ??? Gastroesophageal reflux ??? High blood pressure ??? Irregular heart beat PALPITATIONS ??? 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 Peptic ulcer disease 02/201904/04/2019 EGD SHOWED HEALED ULCER Past Surgical History: Procedure Laterality Date ??? APPENDECTOMY 1967 ??? CHOLECYSTECTOMY 1971 ??? COLONOSCOPY 04/04/2019 ??? CT GUIDED INJECTION SI JOINT 01/30/2019 CT Guided Injection SI Joint 01/30/2019 [facility] RAD CAT SCAN ??? CT GUIDED JOINT INJECTION 09/04/2018 CT Guided Joint Injection 09/04/2018 [facility] RAD CAT SCAN ??? HIP SURGERY 05/25/2017 ??? HYSTERECTOMY ??? OVARY REMOVAL ??? SPINAL FUSION 01/2018 ??? UPPER GASTROINTESTINAL ENDOSCOPY AND 04/04/2019 ??? XR FLUORO INJECTION DRAINAGE JOINT LG RIGHT Right 03/16/2019 XR Fluoro Guided Joint Injection Large Right 03/16/2019 [facility] RAD XRAY Social History: Home set-up: Lives in a 1 level home with her spouse who is home art class model. Bathroom Set-up: walk in shower with seat Stairs: 1+1 MEKA Baseline Mobility: independent, uses cane when out of the home, had leg length discrepancy after gluteal tear and surgery, +driving, cooking, cleaning, laundry Equipment at home: cane, FWW, shower seat Fall history: none Precautions/Special Considerations: fall, skin breakdown risk Lines: PIV R UE Activity Orders: WBAT Diet: NPO Mobility and Positioning Recommendations: ?? Pt. to utilize FWW and hands on assist of 1 for transfers with nursing. ?? Please encourage up to chair for meal times as able. ?? Hypotensive this date and would recommend transfers only until BPs improve. Subjective: ???I feel dizzy. Objective: Pt seen for evaluation today. Pain: Number Location At rest No number provided R hip With activity No number provided R hip Vital Signs: At Rest With Activity SpO2 (RA) 96% 99% BP (MAP) 102/61(71)mmHg 81/49(57)mmHg HR 82bpm Mental Status: alert, oriented to person, place, and time, whifty Skin: dressing to R anterior hip clean, dry and intact, increased R thigh/hip edema, taught and hard to touch, RN notified Musculoskeletal: ROM: limitations in R hip secondary to edema Strength: able to lift R LE out of bed with assistance for L LE as she learned previously Sensation: denies deficits Bed Mobility: Supine to Sit: supervised to the R with HOB at 30 degrees, using technique to assist R LE OOB with L LE without cues Sit to Supine: NT Transfers: Sit to Stand: supervised up to FWW, unable to adjust walker height lower to accommodate appropriateheight for patient Stand to Sit: supervised from FWW, cues for technique and hand placement, good eccentric control Bed to Chair: NT Gait: Distance: 15' Device used: FWW Level of assist: CGA Gait mechanics: slow juliet, step to pattern, antalgic, +leg length discrepancy noted Unable to progress further secondary to symptomatic hypotension after short distance ambulated to chair Stairs: NT Balance: Sitting Static: good Sitting Dynamic: good Standing Static: good Standing Dynamic / Gait: Fair using FWW Therex: reviewed ankle pumps, heel slides Education: patient has been educated on Bed mobility, Transfers, Assistive device/technique, Exercise, Positioning, Safety , Precautions/protocol, Gait , Role of therapy, Balance and Discharge planning and verbalizes and demonstrates understanding. Patient status, treatment, and mobility recommendations discussed with nursing. Assessment: Jigna Espinoza was seen today for physical therapy evaluation. Pt presents with decreased activity tolerance, orthostatic hypotension, increased pain, balance deficits, gait deviations,decreased strength, and increased edema. Pt motivated to participate and able to mobilize with supervision/CGA however limited in ability to continue to participate secondary to symptomatic orthostatic hypotension and nausea. Pt able to remain seated upright in chair at end of session however BP remained soft. RN notified. x2 ice bags applied to R hip/thigh area. The pt would benefit from skilled therapy services while in the hospital to maximize functional abilities. Discharge Recommendations: Based on the current findings, Anticipated Discharge Disposition: home with assist and outpatient PT services when medically ready for hospital discharge. Consult Recommendations: No other consults recommended at this time. Equipment needs: Patient has all necessary equipment Goals: To be achieved by 06/23/19: 1. Pt. to demonstrate knowledge of safety limitations and precautions and will appropriately request assistance for functional activities and to mobilize. 2. Pt. to demonstrate understanding of appropriate R LE exercises. 3. Pt. to perform bed mobility independently. 4. Pt. to perform stand step transfers with modified independence using a front wheeled walker. 5. Pt. to ambulate 150 feet with modified independence using a a front wheeled walker. 6. Pt. to ambulate up/down 1 step/stairs using front wheeled walker with CGA. 7. Pt will tolerate progression towards upright with stable vital signs. Plan: Therapy Frequency: 1-3 more visits for therapy including gait training, home exercise program, patient/family education, stair training and strengthening. Patient/family understand and agree with plan as stated above. 2017 PT Evaluation Code Rationale: ?? Diagnosis & Pertinent Co-Morbidities, personal factors, and present illness affecting Plan of Care: (see above); Additional personal factors or co- morbidities that impact plan: ?? Total # of Factors: 0 1-2 3+ X ?? Examination of body system impairments, functional limitations and behaviors, and/or participation restrictions. Addressing 1-2 elements Addressing 3 + elements Addressing 4 + elements X ?? Clinical presentation: See assessment above. Stable/Uncomplicated Evolving/Fluctuating Symptoms Unstable/Unpredictable X (hypotension) ?? Clinical decision making of high complexity based on pt's functional performance as outlined in this evaluation. Time IN / OUT: 2492-1703 Total Evaluation Minutes, Physical Therapy: 25(high complexity eval) LORENA TRINH PT Pager: [phone] Physical Therapy Inpatient Rehabilitation Department * Initial Assessments - Fiona Mackenzie RN - 06/20/2019 8:48 AM EDT Office of Care Management Initial Assessment Fiona Mackenzie RN reviewed record and discussed patient with Care Team. Source of Information: pt Introduced self/reviewed role; services accepted. Reason for Hospitalization: Reason for Admission as Stated by Patient: they told me to come here Attestation signed by Juancarlos Ayers MD at 06/20/2019 2:21 AM Pertinent History: Jigna Espinoza is a 74 y.o. female with h/o HTN and asthma s/p elective right [facility], who developed postoperative hypotension, found to have Hgb 5.9 and tense hematoma in right thigh, admitted to the SICU for hemodynamic support. Intraoperative course was uneventful, patient tolerated spinal with 12.5mg bupivacaine and low dose propofol gtt with no vasopressor requirement. Starting Hgb 12, and patient had received ~4L fluids over the course of the day. Bedside TTE showed hyperdynamic LV, LVEF ~70-80%, mild LVH, no significant valvular abnormalities, IVC < 1cm with significant respirophasic variation. Past Medical History: Diagnosis Date ??? Asthma ??? Cancer bcc ??? Chronic pain ??? Claustrophobia 06/11/2019 ??? Gastroesophageal reflux ??? High blood pressure ??? Irregular heart beat PALPITATIONS ??? 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 Peptic ulcer disease 02/201904/04/2019 EGD SHOWED HEALED ULCER Hospitalizations Within the Past 30 Days: *see H&P Anticipated Length Of Stay (If known): Expected Length of Hospitalization: just a night and tomorrow Current Decision-Making Capacity: a,ox3 Advance Care Planning: to Pablo [phone]. Who would be surrogate decision maker [place]. Any patient receiving care at [facility] must abide by [place] law. The hierarchy for surrogate decision making is: (a) Patient???s spouse, or civil union partner or common law spouse unless there is a divorce proceeding, separation agreement, or restraining order limiting that person???s relationship with the patient. (b) Any adult son or daughter of the patient. (c) Either parent of the patient. (d) Any adult brother or sister of the patient. (e) Any adult grandchild of the patient. (f) Any grandparent of the patient. (g) Any adult aunt, uncle, niece, or nephew of the patient. (h) A close friend of the patient. (i) The agent with financial power of deputy commonwealth's attorney or a conservator appointed in accordance with RSA 464-A. (j) The guardian of the patient???s estate. Current Coping/Education/Information Needs: CM explained VNA/SNF /OutPtServices with yony castro Current Functional Ability: 1 person assist r/t pain right hip Functional Status Prior to Admission: drove self/100%ADLindi/no DME used Home Environment: lives in one story house with spouse Pablo. 3stepsYTD Social & Family Supports/Community Resources: eveliaedwith adult son Chay living close by and can assist pt as needed. Behavioral Health History: denied Substance Use/Abuse: denied DAST 10 In the past year have you used an illegal drug or used a prescription medication for non-medical reaons?: No In the past year have you used opioids (oxycodone, Vicodin, heroin, fentanyl, buprenorphine, methadone, etc.) for non-medical reasons?: No AUDIT In the past year have you had 4 or more drinks a day containing alcohol?: No Other Pertinent/Service Specific Information: na Health/Prescription Coverage: Primary Insurance: MEDICARE Secondary Insurance: [employer] [facility] Prescription Coverage:sunita Preferred Pharmacy: [facility] Primary Care Provider: Ritu Bolaños APRN [phone] Patient/Caregiver Goals of Treatment: hme-declned services Potential Needs for Transition of Care: Rehab/SNF: declined Home Health: declined DME: na Dialysis: na Community Resources: na Transportation: spouse Anticipated Barriers to Discharge/Special Considerations: none Assessment: 74yowf in from [place] with right JACQUIE and flank hematoma formation and hypotension,tx to DH. Pt is a,ox3. Pt has supportive spouse to drive and assist her at home. Pt .declined needing services.Pt stated she will do therapy outpt at [facility] if needed. A member of the Care Management team will continue to monitor progress, follow for continuity of care and assist with transition of care planning. Fiona Mackenzie, RN Pager: [phone] * Plan of Care - Jose Roberto Cortes - 06/20/2019 7:01 AM EDT Problem: Patient Care Overview Goal: Plan of Care Review Outcome: Ongoing (Interventions Implemented as Appropriate) 06/20/19 0659 Plan of Care Review Progress improving Coping/Psychosocial Plan Of Care Reviewed With patient OUTCOME EVALUATION NOTE: OUTCOME SUMMARY: Patient did well overnight. Josh weaned off prior to blood administration. 2 units PRBC's administered per order. Hypotension resolved. Hg 5.4 ->8.4. Minimal complaints of pain. Turned 2qhrs with assist. Will continue to monitor. CHATO Trujillo-CCRN * Consult Note - Jason Nichols MD - 06/20/2019 3:45 AM EDT Orthopaedic Surgery Consult Note Attending: Dr. Pires We are seeing Jigna Espinoza at the request of Roque Rolle MD for the evaluation of R THAtransferred for hypoTN Chief Complaint: s/p R JACQUIE transferred for hypotension and Hgb drop post-op History of Present Illness: Jigna Espinoza is a 74 y.o. female who underwent Right JACQUIE yesterday with Dr. Soto. Per operation notes and reports, surgery went well and was otherwise uneventful, patient tolerated spinal with 12.5mg bupivacaine and low dose propofol gtt with no vasopressor requirement. In the postoperative setting, patient was noted to be hypotensive with Hgb 12, then 9.7 - patient given over 4 L of fluid intravenously with recheck Hgb of 5.9. Patient also experienced a vagal episode with some chest discomfort (EKG & troponins WNL - brief afib noted). Patient remained persistently hypotensive which prompted a transfer to [facility] ICU. In the ICU, bedside TTE showed hyperdynamic LV, LVEF ~70-80%, mild LVH, no significant valvular abnormalities, IVC < 1cm with significant respirophasic variation. 2u PRBC delivered now in ICU with planned recheck Hgb. No pressor requirement. Patient remains alert and oriented x3 and does not report any neurovascular deficits nor significant increase in pain toright lower extremity nor other extremities. Her blood pressures have improved modestly to SBP 80s to high 90s. Patient denies numbness, tingling, weakness, head strike, LOC, or other injuries, no fatigue, vomiting, dizziness. Endorses some nausea which has subsided. No fever, chest pain, SOB. Operative Details - R JACQUIE (06/19/19 - Dr. Eric Soto): Approach: Transverse anterior hip incision - Components Used: Sorto and Nephew Polarstem femoral system R3 acetabular system Bearing surface: ceramic on polyethylene Estimated Blood Loss: 450 cc Wound closure: Monocryl 3-0 and Dermaflex skin adhesive. No stitches or radha to remove. Dressing changes: Surgical dressing to be left in place for 5 days before removal. Past Medical History: Patient Active Problem List Diagnosis Code ??? Pain in right hip M25.551 ??? Allergic rhinitis J30.9 ??? Alopecia L65.9 ??? Anxiety F41.9 ??? Arthritis M19.90 ??? Asthma J45.909 ??? Osteoarthrosis M19.90 ??? Basal cell carcinoma of skin C44.91 ??? Chronic constipation K59.09 ??? Depressive disorder F32.9 ??? Fatigue R53.83 ??? Gastroesophageal reflux disease K21.9 ??? Hand pain, right M79.641 ??? Hyperlipidemia E78.5 ??? Hypertension I10 ??? L3 vertebral fracture S32.039A ??? Pain in joint, pelvic region and thigh M25.559 ??? Osteoporosis M81.0 ??? Neck pain M54.2 ??? Leg length discrepancy M21.70 ??? Osteopenia M85.80 ??? Preop testing Z01.818 ??? Rupture of biceps tendon S46.219A ??? S/P lumbar fusion Z98.1 ??? 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 Seborrheic keratosis L82.1 ??? Sacroiliac joint dysfunction of both sides M53.3 ??? Lumbar spinal stenosis M48.061 ??? Breast calcifications R92.1 ??? Claustrophobia F40.240 ??? Status post total hip replacement, right Z96.641 ??? Hypotension I95.9 Past Surgical History: Past Surgical History: Procedure Laterality Date ??? APPENDECTOMY 1967 ??? CHOLECYSTECTOMY 1971 ??? COLONOSCOPY 04/04/2019 ??? CT GUIDED INJECTION SI JOINT 01/30/2019 CT Guided Injection SI Joint 01/30/2019 [facility] RAD CAT SCAN ??? CT GUIDED JOINT INJECTION 09/04/2018 CT Guided Joint Injection 09/04/2018 [facility] RAD CAT SCAN ??? HIP SURGERY 05/25/2017 ??? HYSTERECTOMY ??? OVARY REMOVAL ??? SPINAL FUSION 01/2018 ??? UPPER GASTROINTESTINAL ENDOSCOPY AND 04/04/2019 ??? XR FLUORO INJECTION DRAINAGE JOINT LG RIGHT Right 03/16/2019 XR Fluoro Guided Joint Injection Large Right 03/16/2019 [facility] RAD XRAY Allergies Allergen Reactions ??? Ketorolac Other (See Comments) Other reaction(s): black stools, nausea and vomting ??? Codeine Nausea Only ??? Hydrocodone Nausea Only ??? Hydromorphone Nausea Only ??? Tramadol Nausea Only Current Facility-Administered Medications on File Prior to Encounter Medication Dose Route Frequency Provider Last Rate Last Dose ??? [COMPLETED] famotidine (PEPCID) injection 20 mg 20 mg Intravenous Once Claudio Monteiro CRNA 20mg at 06/19/19 0652 ??? [COMPLETED] BUpivacaine (PF) (MARCAINE) 0.5 % (5 mg/mL) injection Claudio Monteiro CRNA 2.5 mL at 06/19/19 0745 ??? [DISCONTINUED] sodium chloride 0.9 % (flush) flush 5-20 mL 5-20 mL Intravenous Q1 Min PRN Claudio Monteiro CRNA ??? [DISCONTINUED] lactated ringers infusion 1,000 mL Intravenous Continuous Claudio Monteiro CRNA 50 mL/hr at 06/19/19 0650 ??? [DISCONTINUED] ceFAZolin (Ancef) 1 g vial attach to sodium chloride 0.9% 100 mL Mini-Bag Plus 1g Intravenous Q4H DerekDave heredia, PA 2 g at 06/19/19 0737 ??? [DISCONTINUED] ceFAZolin (Ancef) 1 g vial attach to sodium chloride 0.9% 100 mL Mini-Bag Plus 1g Intravenous Q4H Dave Reed, PA ??? [DISCONTINUED] naloxone (NARCAN) injection 0.04 mg 0.04 mg Intravenous Q5 Min PRN Judith Monteiro CRNA ??? [DISCONTINUED] sodium chloride 0.9% 250 mL IV bolus Intravenous Once PRN Claudio Monteiro CRNA ??? [DISCONTINUED] ePHEDrine injection 12.5 mg 12.5 mg Intravenous Once PRN Claudio Monteiro CRNA ??? [DISCONTINUED] atropine injection 0.5 mg 0.5 mg Intravenous Once PRN Claudio Monteiro CRNA ??? [DISCONTINUED] fentaNYL 50 mcg/mL multi-dose injection 12.5-25 mcg Intravenous Q5 Min PRN Claudio Monteiro CRNA 25 mcg at 06/19/19 1926 ??? [DISCONTINUED] ondansetron (ZOFRAN) injection 4 mg 4 mg Intravenous Q30 Min PRN Clauido Monteiro CRNA 4 mg at 06/19/19 0936 ??? [DISCONTINUED] midazolam (PF) (VERSED) multi-dose injection PRN Claudio Monteiro CRNA 1 mg at 06/19/19 0740 ??? [DISCONTINUED] lidocaine (PF) (XYLOCAINE) 100 mg/5 mL (2 %) injection PRN Claudio Monteiro CRNA20 mg at 06/19/19 0746 ??? [DISCONTINUED] propofol (DIPRIVAN) infusion Continuous PRN Claudio Monteiro CRNA 9.2 mL/hr at 06/19/19 0857 25 mcg/kg/min at 06/19/19 0857 ??? [DISCONTINUED] tranexamic acid (CYKLOKAPRON) 100 mg/mL bolus injection (Anesthesia) PRN Claudio Monteiro CRNA 1,000 mg at 06/19/19 0737 ??? [DISCONTINUED] ondansetron (ZOFRAN) injection PRN Claudio Monteiro CRNA 4 mg at 06/19/19 0754 ??? [DISCONTINUED] dexamethasone (DECADRON) injection PRN Claudio Monteiro CRNA 10 mg at 06/19/19 0754 ??? [DISCONTINUED] bacitracin injection Once PRN Eric Soto MD 50,000 Units at 06/19/19 0817 ??? [DISCONTINUED] BUpivacaine liposome (PF) (EXPAREL) 1.3 % (13.3 mg/mL) injection for infiltration Once PRN Eric Soto MD 20 mL at 06/19/19814 ??? [DISCONTINUED] BUpivacaine-EPINEPHrine 0.25 %-1:200,000 injection Once PRN Eric Soto MD 50mL at 06/19/19814 ??? [DISCONTINUED] cloNIDine injection Once PRN Eric Soto MD 10 mcg at 06/19/19814 ??? [DISCONTINUED] ketorolac (TORADOL) injection Once PRN Eric Soto MD 30 mg at 06/19/19814 ??? [DISCONTINUED] morphine 10 mg/mL injection Once PRN Eric Soto MD 10 mg at 06/19/19814 ??? [DISCONTINUED] fentaNYL 50 mcg/mL multi-dose injection PRN Claudio Monteiro CRNA 25 mcg at 06/19/19 0907 ??? [DISCONTINUED] morphine 2 mg/mL injection syringe 2-4 mg 2-4 mg Intravenous Q5 Min PRN Claudio Monteiro CRNA ??? [DISCONTINUED] sodium chloride 0.9% infusion 200 mL/hr Intravenous Continuous Claudio Monteiro CRNA 1,000 mL/hr at 06/19/19 1110 1,000 mL/hr at 06/19/19 1110 Current Outpatient Medications on File Prior to Encounter Medication Sig Dispense Refill ??? mupirocin (BACTROBAN) 2 % Ointment Apply small amount into each nostril 2 times a day x 5 days prior to surgery 22 g 0 ??? potassium chloride (K-DUR/KLOR-CON) 10 mEq Tablet Sustained Release Take 20 mEq by mouth 2 times daily. 0 ??? sertraline (ZOLOFT) 50 mg Tablet Take 1 tablet by mouth daily. 0 ??? celecoxib (CELEBREX) 200 mg Capsule 200 mg daily. 1 ??? albuterol (PROVENTIL HFA) 90 mcg/actuation HFA Aerosol Inhaler 2 puffs every 4 hours as needed. ??? budesonide (PULMICORT FLEXHALER) 180 mcg/actuation Aerosol Powdr Breath Activated Inhale 1 puffinto the lungs 2 times daily. ??? montelukast (SINGULAIR) 10 mg Tablet Take 10 mg by mouth daily. ??? salmeterol (SEREVENT DISKUS) 50 mcg/dose Disk with Device Inhale 1 puff into the lungs 2 times daily. ??? albuterol (PROVENTIL) 2.5 mg /3 mL (0.083 %) Solution for Nebulization Take 2.5 mg by nebulization. Indications: every 4 to 6 hours as needed ??? loratadine (CLARITIN) 10 mg Tablet Take 10 mg by mouth daily as needed for Allergies. ??? triamterene-hydrochlorothiazide (DYAZIDE) 37.5-25 mg Capsule Take 2 capsules by mouth daily. ??? fluticasone propionate (FLONASE) 50 mcg/actuation [place], Suspension 2 sprays by Each Nare routedaily. ??? Magnesium Oxide 250 mg magnesium Tablet Take 2 tablets by mouth daily. ??? ferrous gluconate 240 mg (27 mg iron) Tablet Take 240 mg by mouth daily. 1 ??? omeprazole (PRILOSEC) 40 mg Capsule, Delayed Release(E.C.) take 1 capsule by mouth twice a day 0 ??? LAXATIVE PEG 3350 17 gram/dose Powder TAKE 17 GRAMS MIXED DIRECTED BY MOUTH ONCE TO THREE TIMES DAILY DIRECTED 1 ??? alendronate (FOSAMAX) 70 mg Tablet Take 70 mg by mouth every 7 days. Indications: TAKES EITHER TUESDAY OR TUESDAY ??? multivitamin (THERAGRAN) Tablet Take 1 tablet by mouth daily. ??? acetaminophen (TYLENOL) 325 mg Tablet Take 650 mg by mouth every 6 hours as needed for Pain. ??? ubidecarenone/omega-3/vit E (CO [id number] E-FISH OIL ORAL) Take 1 tablet by mouth daily. Family History: Negative for bleeding/clotting disorders or anesthetic complications. Social History: Social History Socioeconomic History ??? Marital status: Spouse name: Not on file ??? Number of children: Not on file ??? Years of education: Not on file ??? Highest education level: Not on file Occupational History ??? Not on file Social Needs ??? Financial resource strain: Not on file ??? Food insecurity: Worry: Not on file Inability: Not on file ??? Transportation needs: Medical: Not on file Non-medical: Not on file Tobacco Use ??? Smoking status: Never Smoker ??? Smokeless tobacco: Never Used Substance and Sexual Activity ??? Alcohol use: Yes Comment: SELDOM ??? Drug use: Never ??? Sexual activity: Not on file Lifestyle ??? Physical activity: Days per week: Not on file Minutes per session: Not on file ??? Stress: Not on file Relationships ??? Social connections: Talks on phone: Not on file Gets together: Not on file Attends mormonism service: Not on file Active member of club or organization: Not on file Attends meetings of clubs or organizations: Not on file Relationship status: Not on file ??? Intimate partner violence: Fear of current or ex partner: Not on file Emotionally abused: Not on file Physically abused: Not on file Forced sexual activity: Not on file Other Topics Concern ??? Not on file Social History Narrative ??? Not on file Review of Systems: As per HPI, otherwise negative Objective: Temp: [36.3 ??C (97.3 ??F)-36.8 ??C (98.2 ??F)] Heart Rate: [63-109] Resp: [10-27] BP: (62-168)/(39-84) SpO2: [94 %-100 %] Heart Rate from SpO2: [50 bpm-108 bpm] Physical Exam General: awake/alert, responds to questions HEENT: normocephalic, atraumatic CVS: regular rate assessed peripherally Pulm: non-labored breathing 2L NC Skin: Intact Psych: Nl mood and affect Right Upper Extremity Exam: No ecchymosis, erythema, or overlying skin changes. No gross deformity. No effusion in shoulder / elbow / wrist No TTP clavicle, shoulder, humerus, elbow, forearm, wrist, hand Compartments soft. No crepitus Painless range of motion of shoulder / elbow / wrist / fingers Sensation intact to light touch in Ax/M/R/U/LABC distributions Motor intact (5/5) shoulder abduction, elbow flexion/extension, wrist flexion/extension, torch shearer, EPL,AIN, IO Brisk capillary refill distally 2+ radial pulse Left Upper Extremity Exam: No ecchymosis, erythema, or overlying skin changes. No gross deformity. No effusion in shoulder / elbow / wrist No TTP clavicle, shoulder, humerus, elbow, forearm, wrist, hand Compartments soft. No crepitus Painless range of motion of shoulder / elbow / wrist / fingers Sensation intact to light touch in Ax/M/R/U/LABC distributions Motor intact (5/5) shoulder abduction, elbow flexion/extension, wrist flexion/extension, torch shearer, EPL,AIN, IO Brisk capillary refill distally 2+ radial pulse Right Lower Extremity Exam: Transverse anterior thigh dressing c/d/i Effusion about proximal hip with associated of minor tense sensation to palpation, but soft, compressible No effusion in knee / ankle No TTP knee, tib/fib, ankle, foot; minor TTP over incision site Compartments soft. No crepitus Hip/knee ROM deferred. Painless range of motion of ankle Sensation intact to light touch in Saphenous/Sural/LFC/Femoral/MP/LP/T/DP/SP distributions Motor intact (5/5) ankle flexion/extension, EHL/FHL/TA Brisk capillary refill distally 2+ DP/PT pulses Left Lower Extremity Exam: No ecchymosis, erythema, or overlying skin changes. No gross deformity. No effusion in knee / ankle No TTP pelvis, hip, femur, knee, tib/fib, ankle, foot Compartments soft. No crepitus Painless range of motion of Hip / knee / ankle Sensation intact to light touch in Saphenous/Sural/LFC/Femoral/MP/LP/T/DP/SP distributions Motor intact (5/5) hip flexion/extension, knee flexion/extension, ankle flexion/extension, EHL/FHL/TA Brisk capillary refill distally 2+ DP/PT pulses Labs: Last wbc, hgb, hct plt Recent Labs 06/20/19 0040 WBC 8.5 HGB 5.7* HCT 16.6* Last 3 Lytes Recent Labs 06/20/19 0040 06/19/19 2320 06/19/19 1513 NA 134* 132* 134* K 3.8 3.6 3.8 CL 101 101 97* CO2 22 20* 25 BUN 17 16 13 CREATININE 0.64* 0.60* 0.69* Last 3 Coags Recent Labs 06/20/19 0016 06/19/19 2320 PT 14.0* 14.5* INR 1.2 1.3 PTT 24* 23* Imaging: Xray Right Hip & Right Femur (06/20/19): Pending CTA RLE (06/20/19): Pending Assessment/Plan: 74 y.o. female who presents status post right hip arthroplasty with Dr. Vegas yesterday 06/19/[address] [facility] ICU with concerns of postoperative hypotension and concomitant hemoglobin drop. Patient continues to be resuscitated in the ICU (receiving 2 units PRBCs). She is A&Ox3 and notcurrently requiring pressors. Will continue to monitor patient's status in conjunction with the ICUteam. Her RLE is swollen, but no excess effusion with limb compressible, soft and dressing c/d/i. Additionally, her pain has not worsened significantly in the post operative period. ICU to obtain CTA exam as well as XR of R hip & femur. - Activity: bedrest while resuscitation underway (robina progress to WBAT w/PT consult) - DVT prophylaxis: hold for OR - Diet: NPO - Imaging needed: Right hip & Right femur XR - Discuss with Dr. Pires I have contacted the referring team and discussed our evaluation and recommendations as listed above. The orthopaedic service will continue to follow this patient. Thank you for the opportunity to assist in their evaluation and treatment. Please call the orthopaedic resident second mate with any questions or concerns. ?? Jason Nichols MD Orthopaedic Surgery Pager: [phone] * Plan of Care - Sandy High RN - 06/20/2019 12:54 AM EDT Problem: Patient Care Overview Goal: Plan of Care Review Outcome: Ongoing (Interventions Implemented as Appropriate) 06/19/19 2200 06/20/19 0042 Plan of Care Review Progress -- declining Coping/Psychosocial Plan Of Care Reviewed With patient -- OUTCOME EVALUATION NOTE: OUTCOME SUMMARY: Patient arrived from OSH AOx4, complains of only mild discomfort in right hip about a 4/10, denies desire for pain meds as it is better with rest. EKG obtained upon arrival, QTc 505, MD aware. Complains of constant nausea unrelieved by compazine or zofran. HR NSR, no ectopy visualized. 2300 BP 60s-40s in multiple extremities, MD aware. Patient denies dizziness or lightheadedness, no chest pain,MARCOS or SOB. Placed on 2LNC for comfort. R hip/thigh swelling noted to be progressing and worsening over time. Dressing of gauze and tegaderm noted to be C/D/I despite swelling. 1L NS bolus given wide open, tolerated well. Labs sent, hgb 5.9 and recheck 6.0. PRBCs ordered. Life safety consulted and patient transferred to ICU for further care. Critical care consulted. ABG drawn. Report given at bedside to TOOLROOM CLERK. Transferred to ICU level of care. Sent with belongings and paperwork. PLAN MOVING FORWARD: Blood products, close BP monitoring INDIVIDUALIZED FALL PREVENTION INTERVENTIONS: Patient-specific fall risk factors per assessment: [current deficits]: Weakness, pain, hypotension Assistance [level of assistance required for transfers and ambulation]: 1-2 assist Supervision [direct monitoring required during toileting and ADLs]: Hands on Surveillance [continuous indirect monitoring]: Bed alarm, call maria in reach, purposeful rounding, room near unit station Patient-specific fall prevention interventions for sensory deficits provided, if applicable: [X] No CPG GOAL OUTCOME EVALUATION: Declining. Goal: Individualization & Mutuality Outcome: Ongoing (Interventions Implemented as Appropriate) 06/19/19 2100 Mutuality/Individual Preferences What Anxieties, Fears or Concerns Do You Have About Your Health or Care? Im just concerned that I can get back to [facility] to start my PT there What Questions Do You Have About Your Health or Care? no What Information Would Help Us Give You More Personalized Care? No Goal: Fall Prevention-Safe Patient Handling 06/19/19 2200 06/20/19 0000 Jett Fall Risk History of Falling 25 -- Secondary Diagnosis 0 -- Ambulatory Aids 0 -- Intravenous Therapy/Heparin/Saline Lock 20 -- Gait/Transferring 10 -- Mental Status 0 -- Score 55 -- OTHER Jett Fall Risk High -- Restraint Interventions Safety Promotion/Fall Prevention -- safety round/check completed;nonskid shoes/slippers when out ofbed;fall prevention program maintained;activity supervised Positioning Body Position -- supine Activity Activity Type -- activity adjusted per tolerance Goal: Infection Control Outcome: Ongoing (Interventions Implemented as Appropriate) 06/19/19 2200 06/20/19 0000 Safety Interventions Isolation Precautions -- standard precautions maintained Infection Prevention -- rest/sleep promoted;environmental surveillance performed Coping Strategies Supportive Measures active listening utilized;decision-making supported;positive reinforcement provided;relaxation techniques promoted;verbalization of feelings encouraged -- Goal: Discharge Needs Assessment Outcome: Ongoing (Interventions Implemented as Appropriate) 06/20/1941 Discharge Needs Assessment Discharge Disposition cancer center Goal: Interdisciplinary Rounds/Family Conf Outcome: Ongoing (Interventions Implemented as Appropriate) 06/20/1941 Interdisciplinary Rounds/Family Conf Participants nursing;patient;physician Problem: Pain, Acute (Adult) Goal: Identify Related Risk Factors and Signs and Symptoms Related risk factors and signs and symptoms are identified upon initiation of Human Response Clinical Practice Guideline (CPG) Outcome: Ongoing (Interventions Implemented as Appropriate) 06/20/1941 Pain, Acute Signs and Symptoms (Acute Pain) nausea/vomiting/anorexia Goal: Acceptable Pain Control/Comfort Level Patient will demonstrate the desired outcomes by discharge/transition of care. Outcome: Ongoing (Interventions Implemented as Appropriate) 06/20/1941 Pain, Acute (Adult) Acceptable Pain Control/Comfort Level making progress toward outcome documented in this encounter Plan of Treatment Not on file documented as of this encounter Procedures Procedure Name Priority Date/Time Associated Diagnosis Comments LAB SCAN 06/22/2019 12:00 AM EDT HC HEMOGLOBIN, BLOOD Timed 06/21/2019 8:50 AM EDT POCT GLUCOSE Routine 06/21/2019 8:15 AM EDT HC HEMOGLOBIN, BLOOD Routine 06/21/2019 2:48 AM EDT BASIC METABOLIC PANEL (NON-FASTING) Routine 06/21/2019 2:48 AM EDT HEMOGRAM Routine 06/20/2019 6:30 PM EDT DIFFERENTIAL, AUTOMATED Routine 06/20/2019 6:30 PM EDT HC CBC,PLT & AUTO DIFF Routine 9 6:30 PM EDT POCT GLUCOSE Routine 06/20/2019 4:13 PM EDT HEMOGRAM Routine 06/20/2019 2:35 PM EDT DIFFERENTIAL, AUTOMATED Routine 06/20/2019 2:35 PM EDT HC CBC,PLT & AUTO DIFF Routine 9 2:35 PM EDT POCT GLUCOSE Routine 06/20/2019 11:52 AM EDT HEMOGRAM Routine 06/20/2019 10:47 AM EDT DIFFERENTIAL, AUTOMATED Routine 06/20/2019 10:47 AM EDT HC CBC,PLT & AUTO DIFF Routine 9 10:47 AM EDT POCT GLUCOSE Routine 06/20/2019 7:47 AM EDT HC PH DETERMINATION, ARTERIAL Routine 06/20/2019 6:10 AM EDT HEMOGRAM Routine 06/20/2019 6:10 AM EDT DIFFERENTIAL, AUTOMATED Routine 06/20/2019 6:10 AM EDT HC FIBRINOGEN TITER Routine 06/20/2019 6 :10 AM EDT HC CBC,PLT & AUTO DIFF Routine 9 6:10 AM EDT XR FEMUR 2 VIEWS RIGHT Routine 9 5:53 AM EDT XR PELVIS Routine 06/20/2019 5:[address] ANGIOGRAM PELVIS W CONTRAST Routine 06/20/2019 5:42 AM EDT TRANSFUSE RED BLOOD CELLS Routine 06/20/2019 3:30 AM EDT TRANSFUSE RED BLOOD CELLS Routine 06/20/2019 1:56 AM EDT POCT GLUCOSE Routine 06/20/2019 12:41 AM EDT HEMOGRAM Routine 06/20/2019 12:40 AM EDT DIFFERENTIAL, AUTOMATED Routine 06/20/2019 12:40 AM EDT HC CBC,PLT & AUTO DIFF Routine 9 12:40 AM EDT HC PHOSPHORUS, SERUM Routine 06/20/2019 12:40 AM EDT HC MAGNESIUM, SERUM Routine 06/20/2019 1 2:40 AM EDT BASIC METABOLIC PANEL (NON-FASTING) Routine 06/20/2019 12:40 AM EDT BLOOD GAS 2 ARTERIAL Routine 06/20/2019 12:29 AM EDT HC HEMOGRAM STAT 06/20/2019 12:16 AM EDT HC PARTIAL THROMBOPLASTIN TIME STAT 06/20/2019 12:16 AM EDT HC PROTHROMBIN TIME STAT 06/20/2019 1 2:16 AM EDT ABORH RECHECK STATUS STAT 06/20/2019 12:15 AM EDT ABO/RH TYPING STAT 06/20/2019 12:15 AM EDT ANTIBODY SCREEN STAT 06/20/2019 12:15 AM EDT HC ANTIBODY DETECTION,CAPTURE-R STAT 06/20/2019 12:15 AM EDT PREPARE RBC Routine 06/20/2019 12:10 AM EDT POCT GLUCOSE Routine 06/19/2019 11:31 PM EDT HEMOGRAM Routine 06/19/2019 11:20 PM EDT DIFFERENTIAL, AUTOMATED Routine 06/19/2019 11:20 PM EDT HC PARTIAL THROMBOPLASTIN TIME Routine 06/19/2019 11:20 PM EDT HC PROTHROMBIN TIME Routine 06/19/2019 1 1:20 PM EDT HC CBC,PLT & AUTO DIFF Routine 9 11:20 PM EDT HC TROPONIN T Routine 06/19/2019 11:20 PM EDT BASIC METABOLIC PANEL (NON-FASTING) Routine 06/19/2019 11:20 PM EDT EKG 12-LEAD STAT 06/19/2019 9:47 PM EDT Nausea and vomiting, intractability of vomiting not specified, unspecified vomiting type documented in this encounter Results * (ABNORMAL) Hemoglobin and Hematocrit, blood (07/06/2019 1:15 PM EDT) Hemoglobin 9.5(L) 11.7 - 15.5 gm/dL [facility] Hematocrit 30.4(L) 35.7 - 45.8 % [facility] Blood specimen (specimen) 07/06/2019 1:15 PM EDT 07/06/2019 1:15 PM EDT Narrative Resulting Agency Comment Spec In Lab / APD Dyllan Grubbs MD HEMATOLOGY ORDERAB LES [facility] [address] [place] [address] * SCAN DOC: LAB (06/22/2019 12:00 AM EDT) Narrative 06/22/2019 12:00 AM EDT Ordered by an unspecified provider. Scanning Provider MEDIA MGR SCAN EXT O RDR/RSLT * (ABNORMAL) Hemogram (06/21/2019 8:50 AM EDT) Pathologist [facility] WBC 6.1 4.0 - 9.5 x10(3)/[facility] RBC 2.54(L) 4.00 - 5.21 x10(6)/[facility] Hemoglobin 7.7(L) 11.7 - 15.5 gm/dL [facility] Hematocrit 22.0(L) 35.7 - 45.8 % [facility] MCV 86.6 82.6 - 94.4 fL [facility] MCH 30.3 27.1 - 32.0 pg [facility] MCHC 35.0 31.7 - 35.0 gm/dL [facility] Platelets 159 145 - 357 x10(3)/[facility] LAB[facility]ORY RDWSD 48.5(H) 37.0 - 46.0 [facility] LAB[facility]AT[facility] RDWCV 15.2(H) 11.5 - 14.1 % [facility] MPV 10.8 7.6 - 12.9 [facility] nRBC % Auto 0.0 % [facility] nRBC Abs Auto 0.000 0.000 - 0.000 x10(3)/[facility] Blood specimen (specimen) 06/21/2019 8:50 AM EDT 06/21/2019 8:52 AM EDT Narrative Resulting Agency Comment Spec In Lab Lis Brown APRN HEMATOLOGY ORDERAB LES [facility] [place] [place] [address] * POCT Glucose (06/21/2019 8:15 AM EDT) Pathologist [facility] POC Glucose 118 65 - 199 mg/dL [facility] Comment: Supplemental ranges: <140 mg/dL before meals <180 mg/dL all other times of the day Blood specimen (specimen) 06/21/2019 8:15 AM EDT 06/21/2019 8:15 AM EDT Dyllan Grubbs MD POINT OF CARE TEST ORDERABLES [facility] [place] [address] * (ABNORMAL) Basic Metabolic Panel (non-fasting) (06/21/2019 2:48 AM EDT) Glucose Lvl 108 65 - 199 mg/dL [facility] Comment:Diabetes: >=200 mg/d L plus symptoms BUN 11 8 - 18 mg/dL [facility] Creatinine 0.64(L) 0.70 - 1.20 mg/dL [facility] Sodium 135 135 - 145 mmol/L [facility] Potassium 3.6 3.5 - 5.0 mmol/L [facility] Comment: Please note: ??Patients with WBC >100,000 may have falsely elevated Potassium levels. ??For accurate Potassium quantification in these patients send serum separator tube (gold top) for subsequent determinations. ??Contact the Clinical Chemistry Laboratory if there are any questions. Chloride 101 98 - 107 mmol/L [facility] CO2 26 22 - 31 mmol/L [facility] Anion Gap 8 5 - 15 mmol/L [facility] Calcium 7.9(L) 8.5 - 10.5 mg/dL [facility] Comment:result rechecked-JSD Estimated GFR 87 >=60 mL/min/1. 73 m?? [facility] Comment: The eGFR was calculated using the CKD-EPI equation. As with all creatinine based estimates of kidney function, eGFR values calculated with the CKD-EPI equation are not accurate in patients with acute kidney failure, extremes of body mass or the acutely ill. [email or web address] [email or web address] eGFR 101 >=60 mL/min/1. 73 m?? [facility] Comment: The eGFR was calculated using the CKD-EPI equation. As with all creatinine based estimates of kidney function, eGFR values calculated with the CKD-EPI equation are not accurate in patients with acute kidney failure, extremes of body mass or the acutely ill. [email or web address] Blood specimen (specimen) 06/21/2019 2:48 AM EDT 06/21/2019 3:16 AM EDT Narrative Resulting Agency Comment Spec In Lab Dyllan Grubbs MD CHEMISTRY ORDERABL ES [facility] [place] [address] * (ABNORMAL) Hemogram (06/21/2019 2:48 AM EDT) WBC 5.4 4.0 - 9.5 x10(3)/[facility] RBC 2.37(L) 4.00 - 5.21 x10(6)/[facility] Hemoglobin 7.3(L) 11.7 - 15.5 gm/dL [facility] Hematocrit 20.1(L) 35.7 - 45.8 % [facility] MCV 84.8 82.6 - 94.4 [facility] MCH 30.8 27.1 - 32.0 pg [facility] MCHC 36.3(H) 31.7 - 35.0 gm/dL [facility] Platelets 135(L) 145 - 357 x10(3)/[facility] LAB[facility] RDWSD 46.9(H) 37.0 - 46.0 [facility] RDWCV 15.1(H) 11.5 - 14.1 % [facility] MPV 10.4 7.6 - 12.9 [facility] nRBC % Auto 0.0 % [facility] nRBC Abs Auto 0.000 0.000 - 0.000 x10(3)/[facility] Blood specimen (specimen) 06/21/2019 2:48 AM EDT 06/21/2019 3:16 AM EDT Narrative Resulting Agency Comment Spec In Lab Dyllan Grubbs MD HEMATOLOGY ORDERAB LES [facility] [place] [address] * Differential, Automated (06/20/2019 6:30 PM EDT) Neutrophils % 68.3 % [facility] Neutr Abs (ANC) 4.10 1.70 - 6.10 x10(3)/[facility] Lymphocytes % 19.8 % [facility] Lymphocytes Abs 1.2 0.9 - 3.2 x10(3)/[facility] Monocytes % 8.5 % [facility] Monocyte Abs 0.5 0.3 - 0.9 x10(3)/[facility] Eosinophils % 2.7 % [facility] Eosinophils Abs 0.2 0.0 - 0.4 x10(3)/[facility] Basophils % 0.5 % [facility] Basophils Abs 0.0 0.0 - 0.1 x10(3)/[facility] Immature Gran % 0.20 % [facility] Comment: Immature granulocytes(IG's)percentage and absolute count will include metamyelocytes, myelocytes, and promyelocytes. Blood smears from CBCs yielding IG's will be scanned manually for concordance. If this scan disagrees with the automated IG or if promyelocytes are noted, a manual differential will be performed. Estefany Gran Abs 0.01 0.00 - 0.04 x10(3)/[facility] LABORATORY Blood specimen (specimen) 06/20/2019 6:30 PM EDT 06/20/2019 6:44 PM EDT Narrative Resulting Agency Comment Spec In Lab Vitor Pineda MD HEMATOLOGY ORDERABL ES [facility] [place] [address] * (ABNORMAL) Hemogram (06/20/2019 6:30 PM EDT) [facility] WBC 6.0 4.0 - 9.5 x10(3)/[facility] LABORATORY RBC 2.60(L) 4.00 - 5.21 x10(6)/[facility] LABORATORY Hemoglobin 8.1(L) 11.7 - 15.5 gm/dL [facility] Hematocrit 22.8(L) 35.7 - 45.8 % [facility] MCV 87.7 82.6 - 94.4 [facility] LABORATORY MCH 31.2 27.1 - 32.0 pg [facility] MCHC 35.5(H) 31.7 - 35.0 gm/dL [facility] Platelets 153 145 - 357 x10(3)/[facility] LABORATORY RDWSD 49.1(H) 37.0 - 46.0 [facility] LABORATORY RDWCV 15.4(H) 11.5 - 14.1 % [facility] MPV 10.4 7.6 - 12.9 [facility] LABORATORY nRBC % Auto 0.0 % [facility] nRBC Abs Auto 0.000 0.000 - 0.000 x10(3)/[facility] LABORATORY Blood specimen (specimen) 06/20/2019 6:30 PM EDT 06/20/2019 6:44 PM EDT Narrative Resulting Agency Comment Spec In Lab Vitor Pineda MD HEMATOLOGY ORDERABL ES [facility] [place] [address] * POCT Glucose (06/20/2019 4:13 PM EDT) Pathologist [facility] POC Glucose 120 65 - 199 mg/dL [facility] Comment: Supplemental ranges: <140 mg/dL before meals <180 mg/dL all other times of the day Blood specimen (specimen) 06/20/2019 4:13 PM EDT 06/20/2019 4:13 PM EDT Roque Rolle MD POINT OF CARE TEST ORDERABLES [facility] [place] [address] * Differential, Automated (06/20/2019 2:35 PM EDT) Neutrophils % 70.1 % [facility] Neutr Abs (ANC) 4.88 1.70 - 6.10 x10(3)/[facility] LABORATORY Lymphocytes % 16.1 % [facility] Lymphocytes Abs 1.1 0.9 - 3.2 x10(3)/[facility] LABORATORY Monocytes % 11.5 % [facility] Monocyte Abs 0.8 0.3 - 0.9 x10(3)/[facility] LABORATORY Eosinophils % 1.4 % [facility] Eosinophils Abs 0.1 0.0 - 0.4 x10(3)/[facility] LABORATORY Basophils % 0.6 % [facility] Basophils Abs 0.0 0.0 - 0.1 x10(3)/[facility] LABORATORY Immature Gran % 0.30 % [facility] Comment: Immature granulocytes(IG's)percentage and absolute count will include metamyelocytes, myelocytes, and promyelocytes. Blood smears from CBCs yielding IG's will be scanned manually for concordance. If this scan disagrees with the automated IG or if promyelocytes are noted, a manual differential will be performed. Estefany Gran Abs 0.02 0.00 - 0.04 x10(3)/[facility] LABORATORY Blood specimen (specimen) 06/20/2019 2:35 PM EDT 06/20/2019 2:43 PM EDT Narrative Resulting Agency Comment Spec In Lab Vitor Pineda MD HEMATOLOGY ORDERABL ES Performing Organization Address City/[facility]/ZIP Co de Phone Number [facility] [place] [address] * (ABNORMAL) Hemogram (06/20/2019 2:35 PM EDT) WBC 7.0 4.0 - 9.5 x10(3)/[facility] LABORATORY RBC 2.69(L) 4.00 - 5.21 x10(6)/[facility] LABORATORY Hemoglobin 8.4(L) 11.7 - 15.5 gm/dL [facility] Hematocrit 23.3(L) 35.7 - 45.8 % [facility] MCV 86.6 82.6 - 94.4 fL [facility] MCH 31.2 27.1 - 32.0 pg [facility] MCHC 36.1(H) 31.7 - 35.0 gm/dL [facility] Platelets 146 145 - 357 x10(3)/[facility] LABORATORY RDWSD 48.5(H) 37.0 - 46.0 [facility] LABORATORY RDWCV 15.4(H) 11.5 - 14.1 % [facility] MPV 10.9 7.6 - 12.9 [facility] LABORATORY nRBC % Auto 0.0 % [facility] nRBC Abs Auto 0.000 0.000 - 0.000 x10(3)/[facility] LABORATORY Blood specimen (specimen) 06/20/2019 2:35 PM EDT 06/20/2019 2:43 PM EDT Narrative Resulting Agency Comment Spec In Lab Vitor Pineda MD HEMATOLOGY ORDERABL ES Performing Organization Address City/[facility]/ZIP Co de Phone Number [facility] [place] [address] * POCT Glucose (06/20/2019 11:52 AM EDT) POC Glucose 114 65 - 199 mg/dL [facility] Comment: Supplemental ranges: <140 mg/dL before meals <180 mg/dL all other times of the day Blood specimen (specimen) 06/20/2019 11:52 AM EDT 06/20/2019 11:52 AM EDT Roque Rolle MD POINT OF CARE TEST ORDERABLES [facility] [place] [address] * Differential, Automated (06/20/2019 10:47 AM EDT) Pathologist [facility] Neutrophils % 66.3 % [facility] Neutr Abs (ANC) 3.93 1.70 - 6.10 x10(3)/[facility] LABORATORY Lymphocytes % 22.8 % [facility] Lymphocytes Abs 1.4 0.9 - 3.2 x10(3)/[facility] LABORATORY Monocytes % 9.4 % [facility] Monocyte Abs 0.6 0.3 - 0.9 x10(3)/[facility] LABORATORY Eosinophils % 1.0 % [facility] Eosinophils Abs 0.1 0.0 - 0.4 x10(3)/[facility] LABORATORY Basophils % 0.2 % [facility] Basophils Abs 0.0 0.0 - 0.1 x10(3)/[facility] LABORATORY Immature Gran % 0.30 % [facility] Comment: Immature granulocytes(IG's)percentage and absolute count will include metamyelocytes, myelocytes, and promyelocytes. Blood smears from CBCs yielding IG's will be scanned manually for concordance. If this scan disagrees with the automated IG or if promyelocytes are noted, a manual differential will be performed. Estefany Gran Abs 0.02 0.00 - 0.04 x10(3)/[facility] LABORATORY Blood specimen (specimen) 06/20/2019 10:47 AM EDT 06/20/2019 10:52 AM EDT Narrative Resulting Agency Comment Spec In Lab Vitor Pineda MD HEMATOLOGY ORDERABL ES [facility] [place] [address] * (ABNORMAL) Hemogram (06/20/2019 10:47 AM EDT) WBC 5.9 4.0 - 9.5 x10(3)/[facility] LABORATORY RBC 2.51(L) 4.00 - 5.21 x10(6)/[facility] LABOR[facility]ORY Hemoglobin 7.6(L) 11.7 - 15.5 gm/dL [facility] Hematocrit 21.3(L) 35.7 - 45.8 % [facility] MCV 84.9 82.6 - 94.4 fL [facility] MCH 30.3 27.1 - 32.0 pg [facility] MCHC 35.7(H) 31.7 - 35.0 gm/dL [facility] Platelets 141(L) 145 - 357 x10(3)/[facility] LABORATORY RDWSD 46.7(H) 37.0 - 46.0 [facility] LABORATORY RDWCV 15.1(H) 11.5 - 14.1 % [facility] MPV 10.6 7.6 - 12.9 [facility] LABOR[facility]ORY nRBC % Auto 0.0 % [facility] nRBC Abs Auto 0.000 0.000 - 0.000 x10(3)/[facility] LABORATORY Blood specimen (specimen) 06/20/2019 10:47 AM EDT 06/20/2019 10:52 AM EDT Narrative Resulting Agency Comment Spec In Lab Vitor Pineda MD HEMATOLOGY ORDERABL ES Performing Organization Address City/[facility]/ZIP Co de Phone Number [facility] [place] [address] * POCT Glucose (06/20/2019 7:47 AM EDT) Pathologist [facility] POC Glucose 122 65 - 199 mg/dL [facility] Comment: Supplemental ranges: <140 mg/dL before meals <180 mg/dL all other times of the day Blood specimen (specimen) 06/20/2019 7:47 AM EDT 06/20/2019 7:47 AM EDT Roque Rolle MD POINT OF CARE TEST ORDERABLES Performing Organization Address [facility] Co de Phone Number [facility] [place] [address] * Differential, Automated (06/20/2019 6:10 AM EDT) Pathologist [facility] Neutrophils % 76.9 % [facility] Neutr Abs (ANC) 5.44 1.70 - 6.10 x10(3)/[facility] LABOR[facility]ORY Lymphocytes % 14.1 % [facility] Lymphocytes Abs 1.0 0.9 - 3.2 x10(3)/[facility] LABORATORY Monocytes % 8.3 % [facility] Monocyte Abs 0.6 0.3 - 0.9 x10(3)/[facility] LABORATORY Eosinophils % 0.0 % [facility] Eosinophils Abs 0.0 0.0 - 0.4 x10(3)/[facility] LABORATORY Basophils % 0.4 % [facility] Basophils Abs 0.0 0.0 - 0.1 x10(3)/[facility] LABORATORY Immature Gran % 0.30 % [facility] Comment: Immature granulocytes(IG's)percentage and absolute count will include metamyelocytes, myelocytes, and promyelocytes. Blood smears from CBCs yielding IG's will be scanned manually for concordance. If this scan disagrees with the automated IG or if promyelocytes are noted, a manual differential will be performed. Estefany Gran Abs 0.02 0.00 - 0.04 x10(3)/[facility] LABORATORY Blood specimen (specimen) 06/20/2019 6:10 AM EDT 06/20/2019 6:23 AM EDT Narrative Resulting Agency Comment Spec In Lab Vitor Pineda MD HEMATOLOGY ORDERABL ES [facility] [place] [address] * (ABNORMAL) Hemogram (06/20/2019 6:10 AM EDT) WBC 7.1 4.0 - 9.5 x10(3)/[facility] LABORATORY RBC 2.71(L) 4.00 - 5.21 x10(6)/[facility] LABOR[facility]ORY Hemoglobin 8.4(L) 11.7 - 15.5 gm/dL [facility] Hematocrit 23.7(L) 35.7 - 45.8 % [facility] MCV 87.5 82.6 - 94.4 [facility] MCH 31.0 27.1 - 32.0 pg [facility] MCHC 35.4(H) 31.7 - 35.0 gm/dL [facility] Platelets 135(L) 145 - 357 x10(3)/[facility] RDWSD 45.5 37.0 - 46.0 [facility] LABORATORY RDWCV 14.4(H) 11.5 - 14.1 % [facility] MPV 10.3 7.6 - 12.9 [facility] nRBC % Auto 0.0 % [facility] nRBC Abs Auto 0.000 0.000 - 0.000 x10(3)/[facility] LABOR[facility]ORY Blood specimen (specimen) 06/20/2019 6:10 AM EDT 06/20/2019 6:23 AM EDT Narrative Resulting Agency Comment Spec In Lab Vitor Pineda MD HEMATOLOGY ORDERABL ES Performing Organization Address [facility] de Phone Number [facility] [place] [address] * (ABNORMAL) Calcium Ionized Whole Blood, RICKY (06/20/2019 6:10 AM EDT) pH Ricky 7.34 7.32 - 7.42 [facility] ICa Whole Blood 1.10(L) 1.15 - 1.33 mmol/L [facility] Comment: Note: ??Total bilirubin higher than 20 mg/dL may lead to falsely low ionized calcium. Blood specimen (specimen) 06/20/2019 6:10 AM EDT 06/20/2019 6:22 AM EDT Narrative Resulting Agency Comment Spec In Lab Roque Rolle MD CHEMISTRY ORDERABL ES Performing Organization Address [facility] Co de Phone Number [facility] [place] [address] * (ABNORMAL) Fibrinogen (06/20/2019 6:10 AM EDT) Fibrinogen 158(L) 200 - 393 mg/dL [facility] Comment: A fibrinogen level >100 mg/dL is adequate for hemostasis in most patients without underlying bleeding disorders. Blood specimen (specimen) 06/20/2019 6:10 AM EDT 06/20/2019 6:23 AM EDT Narrative Resulting Agency Comment Spec In Lab Roque Rolle MD HEMATOLOGY ORDERAB LES Performing Organization Address [facility] de Phone Number [facility] [place] [address] * XR Pelvis (Generic) (06/20/2019 5:53 AM EDT) Anatomical Region Laterality Modality Pelvis N/A Digital Radiogra phy Impressions 06/20/2019 9:35 AM EDT 1. ??Status post right total hip arthroplasty with no evidence of periprosthetic fracture or dislocation. 2. ??Known intramuscular hematoma is better appreciated on CT angiogram and pelvis from today. I have personally reviewed the image(s) and the residents interpretation and agree with the findings, Jojo Fall at 06/20/2019 9:35 AM Thank you for letting us participate in the care of this patient. For questions regarding this report, please contact the number below. ? Narrative 06/20/2019 9:35 AM EDT EXAMINATION: XR PELVIS (GENERIC), XR FEMUR 2 VIEWS RIGHT (GENERIC) CLINICAL HISTORY: s/p RTHA, concern for bleed TECHNIQUE: AP radiograph of the pelvis AP right hip, AP right knee, lateral right hip, lateral right knee radiographs COMPARISON: CT angiogram of the pelvis dated 06/20/2019 at 0531 hours Pelvic radiographs dated 09/26/2017 FINDINGS: AP pelvis: Status post right JACQUIE with no periprosthetic fracture or dislocation. Expected soft tissue swelling and subcutaneous gas. Left hip-joint space narrowing, osteophyte formation subchondral sclerosis, unchanged. Incidentally noted is the distal end of spine fusion hardware. Right Femur: Status post total hip arthroplasty. There is no periprosthetic fracture or dislocation. There is soft tissue swelling, and subcutaneous gas. The known intramuscular hematoma is better appreciated on CT angiogram and pelvis from today. Procedure Note Jojo Fall MD - 06/20/2019 EXAMINATION: XR PELVIS (GENERIC), XR FEMUR 2 VIEWS RIGHT (GENERIC) CLINICAL HISTORY: s/p RTHA, concern for bleed TECHNIQUE: AP radiograph of the pelvis AP right hip, AP right knee, lateral right hip, lateral right kneeradiographs COMPARISON: CT angiogram of the pelvis dated 06/20/2019 at 0531 hours Pelvic radiographs dated 09/26/2017 FINDINGS: AP pelvis: Status post right JACQUIE with no periprosthetic fracture ordislocation. Expected soft tissue swelling and subcutaneous gas. Left hip-joint space narrowing, osteophyte formation subchondralsclerosis, unchanged. Incidentally noted is the distal end of spine fusion hardware. Right Femur: Status post total hip arthroplasty. There is noperiprosthetic fracture or dislocation. There is soft tissue swelling, and subcutaneousgas. The known intramuscular hematoma is better appreciated on CT angiogramand pelvis from today. IMPRESSION 1. Status post right total hip arthroplasty with no evidence ofperiprosthetic fracture or dislocation. 2. Known intramuscular hematoma is better appreciated on CT angiogramand pelvis from today. I have personally reviewed the image(s) and the residents interpretationand agree with the findings, Jojo Fall at 06/20/2019 9:35 AM Thank you for letting us participate in the care of this patient. Forquestions regarding this report, please contact the number below. Roque Rolle MD IMG DX ORDERABLES * XR Femur 2 views Right (Generic) (06/20/2019 5:53 AM EDT) Anatomical Region Laterality Modality Thigh Right Digital Radiogra phy Impressions 06/20/2019 9:35 AM EDT 1. ??Status post right total hip arthroplasty with no evidence of periprosthetic fracture or dislocation. 2. ??Known intramuscular hematoma is better appreciated on CT angiogram and pelvis from today. I have personally reviewed the image(s) and the residents interpretation and agree with the findings, Jojo Fall at 06/20/2019 9:35 AM Thank you for letting us participate in the care of this patient. For questions regarding this report, please contact the number below. ? Narrative 06/20/2019 9:35 AM EDT EXAMINATION: XR PELVIS (GENERIC), XR FEMUR 2 VIEWS RIGHT (GENERIC) CLINICAL HISTORY: s/p RTHA, concern for bleed TECHNIQUE: AP radiograph of the pelvis AP right hip, AP right knee, lateral right hip, lateral right knee radiographs COMPARISON: CT angiogram of the pelvis dated 06/20/2019 at 0531 hours Pelvic radiographs dated 09/26/2017 FINDINGS: AP pelvis: Status post right JACQUIE with no periprosthetic fracture or dislocation. Expected soft tissue swelling and subcutaneous gas. Left hip-joint space narrowing, osteophyte formation subchondral sclerosis, unchanged. Incidentally noted is the distal end of spine fusion hardware. Right Femur: Status post total hip arthroplasty. There is no periprosthetic fracture or dislocation. There is soft tissue swelling, and subcutaneous gas. The known intramuscular hematoma is better appreciated on CT angiogram and pelvis from today. Procedure Note Jojo Fall MD - 06/20/2019 EXAMINATION: XR PELVIS (GENERIC), XR FEMUR 2 VIEWS RIGHT (GENERIC) CLINICAL HISTORY: s/p RTHA, concern for bleed TECHNIQUE: AP radiograph of the pelvis AP right hip, AP right knee, lateral right hip, lateral right kneeradiographs COMPARISON: CT angiogram of the pelvis dated 06/20/2019 at 0531 hours Pelvic radiographs dated 09/26/2017 FINDINGS: AP pelvis: Status post right JACQUIE with no periprosthetic fracture ordislocation. Expected soft tissue swelling and subcutaneous gas. Left hip-joint space narrowing, osteophyte formation subchondralsclerosis, unchanged. Incidentally noted is the distal end of spine fusion hardware. Right Femur: Status post total hip arthroplasty. There is noperiprosthetic fracture or dislocation. There is soft tissue swelling, and subcutaneousgas. The known intramuscular hematoma is better appreciated on CT angiogramand pelvis from today. IMPRESSION 1. Status post right total hip arthroplasty with no evidence ofperiprosthetic fracture or dislocation. 2. Known intramuscular hematoma is better appreciated on CT angiogramand pelvis from today. I have personally reviewed the image(s) and the residents interpretationand agree with the findings, Jojo Fall at 06/20/2019 9:35 AM Thank you for letting us participate in the care of this patient. Forquestions regarding this report, please contact the number below. Roque Rolle MD IMG DX ORDERABLES * CT Angiogram Pelvis w Contrast (06/20/2019 5:42 AM EDT) Anatomical Region Laterality Modality Abdomen, Pelvis Computed Tomogra phy Impressions 06/20/2019 7:32 AM EDT Moderate-sized intra-muscular and extra-muscular hematomas within the thigh and about the pelvis. Multiple foci of hyperdensity within the upper thigh and about the pelvis of indeterminate etiology; osseous fragments related to procedure with a consideration although active extravasation cannot be convincingly excluded given this appearance as well as the hematomas. Preliminary report signed by: Laura Lewis at 06/20/2019 6:47 AM I have personally reviewed the image(s) and the residents interpretation and agree with the findings, Daron Rosales at 06/20/2019 7:32 AM Thank you for letting us participate in the care of this patient. For questions regarding this report, please contact the number below. ? Narrative 06/20/2019 7:32 AM EDT EXAMINATION: CT ANGIOGRAM PELVIS W CONTRAST CLINICAL HISTORY: s/p R JACQUIE, anemic, hypotensive, look for active extrav into RLE TECHNIQUE: Helical CT of the pelvis and proximal lower extremities with 65 cc Omnipaque 350. COMPARISON: None FINDINGS: Study limited by metal artifact from the right hip arthroplasty. The visualized inferior aorta, common iliac arteries, internal and external iliac arteries, common femoral arteries, and included proximal superficial femoral arteries and profundus arteries are patent. There is a moderate-sized hematoma within the anterior compartment of the thigh which effaces and obscures the normal fat planes between the thigh musculature and causes asymmetry in caliber of the proximal lower extremities. Additional intramuscular hematoma about the muscles of the pelvis. There is an additional hematoma measuring 7.5 x 2 cm superficial to the musculature along the upper anterolateral thigh. Diffuse foci of air and soft tissue edema are likely related to the recent procedure. Multiple scattered foci of hyperdensity within the upper thigh and about pelvis are of indeterminate etiology, but are identified on the arterial phase and persist on the delayed phases. Procedure Note Daron Rosales MD - 06/20/2019 EXAMINATION: CT ANGIOGRAM PELVIS W CONTRAST CLINICAL HISTORY: s/p R JACQUIE, anemic, hypotensive, look for active extravinto RLE TECHNIQUE: Helical CT of the pelvis and proximal lower extremities with 65 ccOmnipaque 350. COMPARISON: None FINDINGS: Study limited by metal artifact from the right hip arthroplasty. The visualized inferior aorta, common iliac arteries, internal andexternal iliac arteries, common femoral arteries, and included proximalsuperficial femoral arteries and profundus arteries are patent. There is a moderate-sized hematoma within the anterior compartment of thethigh which effaces and obscures the normal fat planes between the thighmusculature and causes asymmetry in caliber of the proximal lower extremities.Additional intramuscular hematoma about the muscles of the pelvis. There is anadditional hematoma measuring 7.5 x 2 cm superficial to the musculature along theupper anterolateral thigh. Diffuse foci of air and soft tissue edema arelikely related to the recent procedure. Multiple scattered foci of hyperdensitywithin the upper thigh and about pelvis are of indeterminate etiology, but are identified on the arterial phase and persist on the delayed phases. IMPRESSION Moderate-sized intra-muscular and extra-muscular hematomas within thethigh and about the pelvis. Multiple foci of hyperdensity within the upper thigh andabout the pelvis of indeterminate etiology; osseous fragments related toprocedure with a consideration although active extravasation cannot beconvincingly excluded given this appearance as well as the hematomas. Preliminary report signed by: Laura Lewis at 06/20/2019 6:47 AM I have personally reviewed the image(s) and the residents interpretationand agree with the findings, Daron Rosales at 06/20/2019 7:32 AM Thank you for letting us participate in the care of this patient. Forquestions regarding this report, please contact the number below. Roque Rolle MD IMG CT ORDERABLES * Transfuse RBC (06/20/2019 4:53 AM EDT) Roque Rolle MD NURSING TREATMENT ORDERABLES - BLOOD ADMIN * Transfuse RBC (06/20/2019 4:53 AM EDT) Roque Rolle MD NURSING TREATMENT ORDERABLES - BLOOD ADMIN * Transfuse RBC (06/20/2019 3:49 AM EDT) Roque Rolle MD NURSING TREATMENT ORDERABLES - BLOOD ADMIN * Transfuse RBC (06/20/2019 3:49 AM EDT) Roque Rolle MD NURSING TREATMENT ORDERABLES - BLOOD ADMIN * (ABNORMAL) POCT Glucose (06/20/2019 12:41 AM EDT) POC Glucose 244(H) 65 - 199 mg/dL [facility] Comment: Supplemental ranges: <140 mg/dL before meals <180 mg/dL all other times of the day Blood specimen (specimen) 06/20/2019 12:41 AM EDT 06/20/2019 12:41 AM EDT Roque Rolle MD POINT OF CARE TEST ORDERABLES [facility] [place] [address] * (ABNORMAL) Differential, Automated (06/20/2019 12:40 AM EDT) Neutrophils % 86.4 % [facility] Neutr Abs (ANC) 7.33(H) 1.70 - 6.10 x10(3)/ L [facility] Lymphocytes % 7.3 % [facility] Lymphocytes Abs 0.6(L) 0.9 - 3.2 x10(3)/[facility] LABORATORY Monocytes % 5.7 % [facility] Monocyte Abs 0.5 0.3 - 0.9 x10(3)/[facility] LABOR[facility]ORY Eosinophils % 0.0 % [facility] Eosinophils Abs 0.0 0.0 - 0.4 x10(3)/[facility] LAB[facility]ORY Basophils % 0.1 % [facility] Basophils Abs 0.0 0.0 - 0.1 x10(3)/[facility] LABORATORY Immature Gran % 0.50 % [facility] Comment: Immature granulocytes(IG's)percentage and absolute count will include metamyelocytes, myelocytes, and promyelocytes. Blood smears from CBCs yielding IG's will be scanned manually for concordance. If this scan disagrees with the automated IG or if promyelocytes are noted, a manual differential will be performed. Estefany Gran Abs 0.04 0.00 - 0.04 x10(3)/[facility] [facility] Blood specimen (specimen) 06/20/2019 12:40 AM EDT 06/20/2019 12:57 AM EDT Narrative Resulting Agency Comment Spec In Lab Beverly Montana MD HEMATOLOGY ORDERAB LES Performing Organization Address City/[facility]/ZIP Co de Phone Number [facility] [place] [address] * (ABNORMAL) Hemogram (06/20/2019 12:40 AM EDT) WBC 8.5 4.0 - 9.5 x10(3)/mc L [facility] RBC 1.82(L) 4.00 - 5.21 x10(6)/mc L [facility] Hemoglobin 5.7(Critic al) 11.7 - 15.5 gm/dL [facility] Comment: This result has been called to JUAN BLACKBURN by Lorena Tripathi on 06 20 2019 at 0139, and has been read back. Hematocrit 16.6(L) 35.7 - 45.8 % [facility] MCV 91.2 82.6 - 94.4 fL [facility] MCH 31.3 27.1 - 32.0 pg [facility] MCHC 34.3 31.7 - 35.0 gm/dL [facility] Platelets 148 145 - 357 x10(3)/mc L [facility] RDWSD 43.8 37.0 - 46.0 [facility] RDWCV 13.2 11.5 - 14.1 % [facility] MPV 10.5 7.6 - 12.9 [facility] nRBC % Auto 0.0 % [facility] nRBC Abs Auto 0.000 0.000 - 0.000 x10(3)/mc L [facility] Blood specimen (specimen) 06/20/2019 12:40 AM EDT 06/20/2019 12:57 AM EDT Narrative Resulting Agency Comment Spec In Lab Beverly Montana MD HEMATOLOGY ORDERAB LES Performing Organization Address City/[facility]/ZIP Co de Phone Number [facility] [place] [address] * (ABNORMAL) Basic Metabolic Panel (non-fasting) (06/20/2019 12:40 AM EDT) Glucose Lvl 220(H) 65 - 199 mg/dL [facility] Comment:Diabetes: >=200 mg/d L plus symptoms BUN 17 8 - 18 mg/dL [facility] Creatinine 0.64(L) 0.70 - 1.20 mg/dL [facility] Sodium 134(L) 135 - 145 mmol/L [facility] Potassium 3.8 3.5 - 5.0 mmol/L [facility] Comment: Please note: ??Patients with WBC >100,000 may have falsely elevated Potassium levels. ??For accurate Potassium quantification in these patients send serum separator tube (gold top) for subsequent determinations. ??Contact the Clinical Chemistry Laboratory if there are any questions. Chloride 101 98 - 107 mmol/L [facility] CO2 22 22 - 31 mmol/L [facility] Anion Gap 11 5 - 15 mmol/L [facility] Calcium 7.1(L) 8.5 - 10.5 mg/dL [facility] Estimated GFR 87 >=60 mL/min/1. 73 m?? [facility] Comment: The eGFR was calculated using the CKD-EPI equation. As with all creatinine based estimates of kidney function, eGFR values calculated with the CKD-EPI equation are not accurate in patients with acute kidney failure, extremes of body mass or the acutely ill. http://Rundown App/[facility]nkf eGFR 101 >=60 mL/min/1. 73 m?? [facility] Comment: The eGFR was calculated using the CKD-EPI equation. As with all creatinine based estimates of kidney function, eGFR values calculated with the CKD-EPI equation are not accurate in patients with acute kidney failure, extremes of body mass or the acutely ill. [email or web address] [email or web address] Blood specimen (specimen) 06/20/2019 12:40 AM EDT 06/20/2019 12:57 AM EDT Narrative Resulting Agency Comment Spec In Lab Dyllan Grubbs MD CHEMISTRY ORDERABL ES Performing Organization Address City/[facility]/ZIP Co de Phone Number [facility] [place] [address] * Phosphorus (06/20/2019 12:40 AM EDT) Phosphorus 4.0 2.5 - 4.5 mg/dL [facility] Blood specimen (specimen) 06/20/2019 12:40 AM EDT 06/20/2019 12:57 AM EDT Narrative Resulting Agency Comment Spec In Lab Beverly Montana MD CHEMISTRY ORDERABL ES Performing Organization Address [facility] Co de Phone Number [facility] [place] [address] * Magnesium (06/20/2019 12:40 AM EDT) Magnesium 0.70 0.69 - 1.07 mmol/L [facility] Blood specimen (specimen) 06/20/2019 12:40 AM EDT 06/20/2019 12:57 AM EDT Narrative Resulting Agency Comment Spec In Lab Beverly Montana MD CHEMISTRY ORDERABL ES Performing Organization Address City/[facility]/ZIP Co de Phone Number [facility] [place] [address] * (ABNORMAL) BLOOD GAS 2 ARTERIAL (06/20/2019 12:29 AM EDT) pH Art 7.37 7.35 - 7.45 [facility] pCO2 Art 33(L) 35 - 45 mmHg [facility] pO2 Art 77(L) 85 - 104 mmHg [facility] HCO3 Art 18.8(L) 20.0 - 26.0 mmol/L [facility] BE Art -6.4(L) -3.0 - 3.0 mmol/L [facility] Hgb Blood Gas 6.1(L) 11.7 - 15.5 gm/dL [facility] O2HB Art 92.6(L) 94.0 - 97.0 % [facility] COHB Art 0.3 % [facility] Comment: Nonsmokers: 0.5-1.5% COHB Smokers: Variable, but usually less than 10% Toxic: 20-30% COHB Lethal: Greater than 60% COHB METHB Art 0.8 <=1.5 % [facility] Na Whole Blood 126(L) 135 - 145 mmol/L [facility] K Whole Blood 3.5 3.5 - 5.0 mmol/L [facility] Comment: Please note: Patients with WBC >100,000 may have falsely elevated Potassium levels. Contact the Clinical Chemistry Laboratory if there are any questions. ICa Whole Blood 1.06(L) 1.15 - 1.33 mmol/L [facility] Comment: Note: ??Total bilirubin higher than 20 mg/dL may lead to falsely low ionized calcium. CL Whole Blood 102 98 - 107 mmol/L [facility] Gluc Whole Bld 211(H) 65 - 199 mg/dL [facility] Comment:Diabetes: >=200 mg/d L plus symptoms. Lactate WB 2.1 0.5 - 2.2 mmol/L [facility] FIO2 Art 21 % [facility] PF Ratio Art 367 [facility] Blood specimen (specimen) 06/20/2019 12:29 AM EDT 06/20/2019 12:29 AM EDT Roque Rolle MD CHEMISTRY ORDERABL ES [facility] [place] [address] * (ABNORMAL) APTT (06/20/2019 12:16 AM EDT) PTT 24(L) 25 - 37 sec [facility] Comment: The PTT is NOT appropriate for heparin monitoring. Use the Anti-Xa level for heparin monitoring (HEP UFH) or LMWH monitoring (HEP LMW). A PTT less than 37 seconds generally indicates adequate hemostasis. Blood specimen (specimen) 06/20/2019 12:16 AM EDT 06/20/2019 12:25 AM EDT Narrative Resulting Agency Comment Spec In Lab Roque Rolle MD HEMATOLOGY ORDERAB LES Performing Organization Address [facility] de Phone Number [facility] [place] [address] * (ABNORMAL) Prothrombin Time (06/20/2019 12:16 AM EDT) PT 14.0(H) 9.4 - 12.5 sec [facility] INR 1.2 [facility] Comment: An INR <2.0 indicates adequate procoagulant activity for hemostasis in most patients without underlying bleeding disorders, though the INR may not adequately reflect hemostatic capacity in patients with liver disease and synthetic impairment. The recommended target INR range for therapeutic anticoagulation is 2.0 ? 3.0 for most applications, though lower and higher ranges may be appropriate depending on clinical circumstances. Blood specimen (specimen) 06/20/2019 12:16 AM EDT 06/20/2019 12:25 AM EDT Narrative Resulting Agency Comment Spec In Lab Roque Rolle MD HEMATOLOGY ORDERAB LES Performing Organization Address [facility] de Phone Number [facility] [place] [address] * (ABNORMAL) Hemogram (06/20/2019 12:16 AM EDT) WBC 8.6 4.0 - 9.5 x10(3)/[facility] RBC 1.91(L) 4.00 - 5.21 x10(6)/[facility] Hemoglobin 6.0(L) 11.7 - 15.5 gm/dL [facility] Hematocrit 18.0(L) 35.7 - 45.8 % [facility] MCV 94.2 82.6 - 94.4 fL [facility] MCH 31.4 27.1 - 32.0 pg [facility] MCHC 33.3 31.7 - 35.0 gm/dL [facility] Platelets 137(L) 145 - 357 x10(3)/[facility] RDWSD 45.4 37.0 - 46.0 fL [facility] RDWCV 13.2 11.5 - 14.1 % [facility] MPV 10.4 7.6 - 12.9 fL [facility] nRBC % Auto 0.0 % [facility] nRBC Abs Auto 0.000 0.000 - 0.000 x10(3)/[facility] Blood specimen (specimen) 06/20/2019 12:16 AM EDT 06/20/2019 12:25 AM EDT Narrative Resulting Agency Comment Spec In Lab Roque Rolle MD HEMATOLOGY ORDERAB LES [facility] [place] [address] * ABORH Recheck Status (06/20/2019 12:15 AM EDT) Pathologist [facility] ABORH Type Recheck Completed [facility] Blood specimen (specimen) 06/20/2019 12:15 AM EDT 06/20/2019 12:21 AM EDT Narrative Resulting Agency Comment Spec In Lab Vignesh Schmidt MD BLOOD BANK LAB ORDER GREGORIO [facility] [place] [address] * Antibody screen (06/20/2019 12:15 AM EDT) Pathologist [facility] Ab Screen Interp Negative [facility] Expires at [id number] on: 06/23/2019 [facility] Blood specimen (specimen) 06/20/2019 12:15 AM EDT 06/20/2019 12:21 AM EDT Narrative Resulting Agency Comment Spec In Lab Vignesh Schmidt MD BLOOD BANK LAB ORDER GREGORIO Performing Organization Address City/[facility]/ZIP Co de Phone Number [facility] [place] [address] * ABO/Rh Typing (06/20/2019 12:15 AM EDT) ABORH Type O Pos [facility] Blood specimen (specimen) 06/20/2019 12:15 AM EDT 06/20/2019 12:21 AM EDT Narrative Resulting Agency Comment Spec In Lab Vignesh Schmidt MD BLOOD BANK LAB ORDER GREGORIO Performing Organization Address [facility]/ZIP Co de Phone Number [facility] [place] [address] * Prepare RBC (06/20/2019 12:10 AM EDT) Dispensed? Yes [facility] Blood specimen (specimen) 06/20/2019 12:10 AM EDT 06/20/2019 12:10 AM EDT Roque Rolle MD BLOOD BANK PRODUCT ORDERABLES Performing Organization Address City/[facility]/ZIP Co de Phone Number [facility] [place] [address] * (ABNORMAL) POCT Glucose (06/19/2019 11:31 PM EDT) POC Glucose 233(H) 65 - 199 mg/dL [facility] Comment: Supplemental ranges: <140 mg/dL before meals <180 mg/dL all other times of the day Blood specimen (specimen) 06/19/2019 11:31 PM EDT 06/19/2019 11:31 PM EDT Roque Rolle MD POINT OF CARE TEST ORDERABLES Performing Organization Address City/[facility]/ZIP Co de Phone Number [facility] [place] [address] * (ABNORMAL) Differential, Automated (06/19/2019 11:20 PM EDT) Neutrophils % 85.2 % [facility] Neutr Abs (ANC) 7.80(H) 1.70 - 6.10 x10(3)/ L [facility] Lymphocytes % 7.7 % [facility] Lymphocytes Abs 0.7(L) 0.9 - 3.2 x10(3)/[facility] Monocytes % 6.1 % [facility] Monocyte Abs 0.6 0.3 - 0.9 x10(3)/[facility] Eosinophils % 0.0 % [facility] Eosinophils Abs 0.0 0.0 - 0.4 x10(3)/[facility] Basophils % 0.1 % [facility] Basophils Abs 0.0 0.0 - 0.1 x10(3)/[facility] Immature Gran % 0.90 % [facility] Comment: Immature granulocytes(IG's)percentage and absolute count will include metamyelocytes, myelocytes, and promyelocytes. Blood smears from CBCs yielding IG's will be scanned manually for concordance. If this scan disagrees with the automated IG or if promyelocytes are noted, a manual differential will be performed. Estefany Gran Abs 0.08(H) 0.00 - 0.04 x10(3)/ L [facility] Blood specimen (specimen) 06/19/2019 11:20 PM EDT 06/19/2019 11:29 PM EDT Narrative Resulting Agency Comment Spec In Lab Beverly Montana MD HEMATOLOGY ORDERAB LES Performing Organization Address City/[facility]/[place] [address] * (ABNORMAL) Hemogram (06/19/2019 11:20 PM EDT) WBC 9.2 4.0 - 9.5 x10(3)/ L [facility] RBC 1.82(L) 4.00 - 5.21 x10(6)/ L [facility] Hemoglobin 5.9(Critic al) 11.7 - 15.5 gm/dL [facility] Comment: This result has been called to DYLLAN EARL by Lorena Tripathi on 06 20 2019 at 0001, and has been read back. Hematocrit 16.6(L) 35.7 - 45.8 % [facility] MCV 91.2 82.6 - 94.4 fL [facility] MCH 32.4(H) 27.1 - 32.0 pg [facility] MCHC 35.5(H) 31.7 - 35.0 gm/dL [facility] Platelets 136(L) 145 - 357 x10(3)/mc L [facility] RDWSD 43.6 37.0 - 46.0 [facility] RDWCV 13.2 11.5 - 14.1 % [facility] MPV 10.6 7.6 - 12.9 [facility] nRBC % Auto 0.0 % [facility] nRBC Abs Auto 0.000 0.000 - 0.000 x10(3)/ L [facility] Blood specimen (specimen) 06/19/2019 11:20 PM EDT 06/19/2019 11:29 PM EDT Narrative Resulting Agency Comment Spec In Lab Beverly Montana MD HEMATOLOGY ORDERAB LES [facility] [place] [address] * Troponin (06/19/2019 11:20 PM EDT) Pathologist [facility] Troponin-T <0.01 0.00 - 0.00 ng/mL [facility] Comment: The 99th percentile for Troponin T is less than 0.01 ng/mL, any detectable cTnT concentration using this assay should be considered elevated. According to the third universal definition of myocardial infarction the following criteria with a clinical presentation consistent with acute myocardial ischemia meets the diagnosis for a myocardial infarction (AR). Detection of a rise and/or fall of cTnT, with at least one value greater than the 99th percentile (> or = 0.01) and with at least one of the following ?? Symptoms of ischemia ?? New or presumed new significant SA-lterprf-J wave (ST-T) changes or new left bundle branch block (LBBB) ?? Development of pathologic Q waves in the ECG ?? Imaging evidence of new loss of viable myocardium or new regional wall motion abnormality ?? Identification of an intracoronary thrombus by angiography or autopsy Samples for cTnT testing should be obtained serially upon first assessment and again 3 to 6 hours later. If the clinical suspicion is high and previous samples have been negative an additional sample may be indicated. Reference: Third Richey Definition of Myocardial Infarction. Journal of the [employer] [employer] 2012;60:1581-98 Blood specimen (specimen) 06/19/2019 11:20 PM EDT 06/19/2019 11:29 PM EDT Narrative Resulting Agency Comment Spec In Lab Beverly Montana MD CHEMISTRY ORDERABL ES [facility] [place] [address] * (ABNORMAL) APTT (06/19/2019 11:20 PM EDT) PTT 23(L) 25 - 37 sec [facility] Comment: The PTT is NOT appropriate for heparin monitoring. Use the Anti-Xa level for heparin monitoring (HEP UFH) or LMWH monitoring (HEP LMW). A PTT less than 37 seconds generally indicates adequate hemostasis. Blood specimen (specimen) 06/19/2019 11:20 PM EDT 06/19/2019 11:29 PM EDT Narrative Resulting Agency Comment Spec In Lab Beverly Montana MD HEMATOLOGY ORDERAB LES Performing Organization Address [facility] Co de Phone Number [facility] [place] [address] * (ABNORMAL) Prothrombin Time (06/19/2019 11:20 PM EDT) PT 14.5(H) 9.4 - 12.5 sec [facility] INR 1.3 [facility] Comment: An INR <2.0 indicates adequate procoagulant activity for hemostasis in most patients without underlying bleeding disorders, though the INR may not adequately reflect hemostatic capacity in patients with liver disease and synthetic impairment. The recommended target INR range for therapeutic anticoagulation is 2.0 ? 3.0 for most applications, though lower and higher ranges may be appropriate depending on clinical circumstances. Blood specimen (specimen) 06/19/2019 11:20 PM EDT 06/19/2019 11:29 PM EDT Narrative Resulting Agency Comment Spec In Lab Beverly Montana MD HEMATOLOGY ORDERAB LES Performing Organization Address [facility] Co de Phone Number [facility] [place] [address] * (ABNORMAL) Basic Metabolic Panel (non-fasting) (06/19/2019 11:20 PM EDT) Glucose Lvl 209(H) 65 - 199 mg/dL [facility] Comment:Diabetes: >=200 mg/d L plus symptoms BUN 16 8 - 18 mg/dL [facility] Creatinine 0.60(L) 0.70 - 1.20 mg/dL [facility] Sodium 132(L) 135 - 145 mmol/L [facility] Potassium 3.6 3.5 - 5.0 mmol/L [facility] Comment: Please note: ??Patients with WBC >100,000 may have falsely elevated Potassium levels. ??For accurate Potassium quantification in these patients send serum separator tube (gold top) for subsequent determinations. ??Contact the Clinical Chemistry Laboratory if there are any questions. Chloride 101 98 - 107 mmol/L [facility] CO2 20(L) 22 - 31 mmol/L [facility] Anion Gap 11 5 - 15 mmol/L [facility] Calcium 7.0(L) 8.5 - 10.5 mg/dL [facility] Estimated GFR 89 >=60 mL/min/1. 73 m?? [facility] Comment: The eGFR was calculated using the CKD-EPI equation. As with all creatinine based estimates of kidney function, eGFR values calculated with the CKD-EPI equation are not accurate in patients with acute kidney failure, extremes of body mass or the acutely ill. http://Rundown App/[facility] eGFR 103 >=60 mL/min/1. 73 m?? [facility] Comment: The eGFR was calculated using the CKD-EPI equation. As with all creatinine based estimates of kidney function, eGFR values calculated with the CKD-EPI equation are not accurate in patients with acute kidney failure, extremes of body mass or the acutely ill. http://Rundown App/[facility] Blood specimen (specimen) 06/19/2019 11:20 PM EDT 06/19/2019 11:29 PM EDT Narrative Resulting Agency Comment Spec In Lab Beverly Montana MD CHEMISTRY ORDERABL ES [facility] [place] [address] * EKG 12 Lead (06/19/2019 9:47 PM EDT) Ventricular rate 103 BPM MUSE SYSTEM Atrial Rate 103 BPM MUSE SYSTEM P-R Interval 142 ms MUSE SYSTEM QRS Duration 76 ms MUSE SYSTEM Q-T Interval 386 ms MUSE SYSTEM QTC Calculated (Bezet) 505 ms MUSE SYSTEM Calculated P Oran 83 degrees MUSE SYSTEM Calculated R Oran -61 degrees MUSE SYSTEM Calculated T Oran 71 degrees MUSE SYSTEM INTERPRETATION Sinus tachycardia Left axis deviation Possible Anteroseptal infarct Abnormal ECG When compared with ECG of 19-JUN-2019 10:32, Vent. rate has increased BY ??36 BPM Criteria for Inferior infarct are no longer Present Confirmed by MD ZANA, NANO ([id number]) on 06/20/2019 7:55:30 AM MUSE SYSTEM 06/19/2019 9:47 PM EDT 06/20/2019 7:55 AM EDT Beverly Montana MD ECG ORDERABLES MUSE SYSTEM documented in this encounter Visit Diagnoses Diagnosis Nausea and vomiting, intractability of vomiting not specified, unspecified vomiting type Anemia, unspecified type Hypotension Hypotension, unspecified documented in this encounter Admitting Diagnoses Diagnosis Hypotension Hypotension, unspecified documented in this encounter Administered Medications Inactive Administered Medications - up to 3 most recent administrations Medication Order MAR Action Action Date Dose Rate Site acetaminophen (OFIRMEV) injection 1,000 mg 1,000 mg, Intravenous, at 400 mL/hr, Administer over 15 Minutes, ONCE, 1 dose, On Tue06/20/19 at 0415, Routine, Is ketorolac (Toradol) IV contraindicated? Yes, Can this patient tolerate oral medications or suppositories? Yes Given 06/20/2019 4:05 AM EDT 1,000 mg 400 mL/hr acetaminophen (TYLENOL) tablet 650 mg 650 mg, Oral, EVERY 4 HOURS PRN, Starting on Tue06/19/19 at 2247, Until Tammy 06/21/19 at 1838, Pain, Fever, Maximum dose of acetaminophen is 4000 mg from all sources in 24 hours., Routine Given 06/21/2019 1:55 PM EDT 650 mg Given 06/21/2019 4:12 AM EDT 650 mg Given 06/21/2019 12:38 AM EDT 650 mg dextrose 5% and sodium chloride 0.9% infusion 150 mL/hr, Intravenous, CONTINUOUS, Starting on Tue06/19/19 at 2215, Until Tue06/19/19 at 2231 New Bag 06/19/2019 10:06 PM EDT 150 mL/hr 150 mL/hr dextrose 5% and sodium chloride 0.9% infusion 200 mL/hr, Intravenous, CONTINUOUS, Starting on Tue06/19/19 at 2300, Until Tue06/20/19 at 0112 New Bag 06/19/2019 10:57 PM EDT 200 mL/hr 200 mL/hr dextrose 50% intravenous solution 25-50 mL 25-50 mL (12.5-25 g), Intravenous, EVERY 1 HOUR PRN, Starting on Tue06/20/19 at 0220, Until Tammy 06/21/19 at 1838, Low blood sugar, For BG 50-70 mg/dL: Oral treatment preferred:?? If able to drink, give 120 mL Juice or Regular (not diet) soda OR If NPO, give 15 gram glucose 40% oral gel massaged into buccal mucosa OR if unconscious or uncooperative, give 12.5 gram (25 mL) Dextrose 50% IV OR, if no IV access, give 1 mg Glucagon IM. For BG less than 50 mg/dL: Oral treatment preferred:?? If able to drink, give 240 mL Juice or Regular (not diet) soda OR If NPO, give 30 gram glucose 40% oral gel massaged in buccal mucosa OR if unconscious or uncooperative, give 25 gram (50 mL) Dextrose 50% IV OR, if no IV access, give 1 mg Glucagon IM. Recheck BG in 30 minutes. May repeat juice, gel, dextrose or glucagon once per episode. To avoid extravasation, push Dextrose 50% SLOWLY (3 mL over 1 minute) in a patent, running IV, preferably a central line. For persistent hypoglycemia, consider longer-acting treatment for the duration of the active insulin., Routine glucagon (human recombinant) injection SolR 1 mg 1 mg, Intramuscular, EVERY 1 HOUR PRN, Starting on Tue06/20/19 at 0220, Until Tammy 06/21/19 at 1838, Low blood sugar, For BG 50-70 mg/dL: Oral treatment preferred:?? If able to drink, give 120 mL Juice or Regular (not diet) soda OR If NPO, give 15 gram glucose 40% oral gel massaged into buccal mucosa OR if unconscious or uncooperative, give 12.5 gram (25 mL) Dextrose 50% IV OR, if no IV access, give 1 mg Glucagon IM. For BG less than 50 mg/dL: Oral treatment preferred:?? If able to drink, give 240 mL Juice or Regular (not diet) soda OR If NPO, give 30 gram glucose 40% oral gel massaged in buccal mucosa OR if unconscious or uncooperative, give 25 gram (50 mL) Dextrose 50% IV OR, if no IV access, give 1 mg Glucagon IM. Recheck BG in 30 minutes. May repeat juice, gel, dextrose or glucagon once per episode. To avoid extravasation, push Dextrose 50% SLOWLY (3 mL over 1 minute) in a patent, running IV, preferably a central line. For persistent hypoglycemia, consider longer-acting treatment for the duration of the active insulin., Routine glucose (GLUTOSE) 40% oral gel 15-30 g, Buccal, EVERY 30 MIN PRN, Starting on Tue06/20/19 at 0220, Until Tammy 06/21/19 at 1838, Low blood sugar, For BG 50-70 mg/dL: Oral treatment preferred:?? If able to drink, give 120 mL Juice or Regular (not diet) soda OR If NPO, give 15 gram glucose 40% oral gel massaged into buccal mucosa OR if unconscious or uncooperative, give 12.5 gram (25 mL) Dextrose 50% IV OR, if no IV access, give 1 mg Glucagon IM. For BG less than 50 mg/dL: Oral treatment preferred:?? If able to drink, give 240 mL Juice or Regular (not diet) soda OR If NPO, give 30 gram glucose 40% oral gel massaged in buccal mucosa OR if unconscious or uncooperative, give 25 gram (50 mL) Dextrose 50% IV OR, if no IV access, give 1 mg Glucagon IM. Recheck BG in 30 minutes. May repeat juice, gel, dextrose or glucagon once per episode. To avoid extravasation, push Dextrose 50% SLOWLY (3 mL over 1 minute) in a patent, running IV, preferably a central line. For persistent hypoglycemia, consider longer-acting treatment for the duration of the active insulin. 1 tube contains 15 grams of glucose (net weight of tube = 37.5 grams., Routine iohexol (OMNIPAQUE) 350 mg/mL solution 0-200 mL 0-200 mL, Intravenous, ONCE PRN, 1 dose, Starting on Tue06/20/19 at 0542, Until Tue06/20/19 at 0542, Per Protocol, Warning Vesicant/Irritant Medication , Radiology Contrast, Routine Given 06/20/2019 5:42 AM EDT 65 mLs lactated ringers infusion 100 mL/hr, Intravenous, CONTINUOUS, Starting on Tue06/20/19 at 0130, Until Tue06/20/19 at 1226 Rate/Dose Verify 06/20/2019 10:00 AM EDT 100 mL/hr 100 mL/hr Rate/Dose Verify 06/20/2019 8:00 AM EDT 100 mL/hr 100 mL/ hr New Bag 06/20/2019 3:41 AM EDT 100 mL/hr 100 mL/hr magnesium sulfate 2 g in sterile water 50 mL 2 g, Intravenous, ONCE, 1 dose, On Tue06/20/19 at 0245, Administer over 120 Minutes New Bag 06/20/2019 4:29 AM EDT 2 g 25 mL/hr montelukast (SINGULAIR) tablet 10 mg 10 mg, Oral, DAILY, First dose on Tue06/21/19 at 0900, Until Discontinued, Routine Given 06/21/2019 8:40 AM EDT 10 mg ondansetron (ZOFRAN) injection 4 mg 4 mg, Intravenous, EVERY 8 HOURS PRN, Starting on Tue06/19/19 at 2231, Until Tue06/21/19 at 1838, Nausea not relieved with compazine (use compazine first), Routine Given 06/19/2019 11:11 PM EDT 4 mg oxyCODONE (ROXICODONE) immediate release tablet 5 mg 5 mg, Oral, EVERY 4 HOURS PRN, Starting on Tue06/21/19 at 0548, Until Tue06/21/19 at 1838, Pain, Routine Given 06/21/2019 12:41 PM EDT 5 mg Given 06/21/2019 8:39 AM EDT 5 mg pantoprazole (PROTONIX) tablet 40 mg 40 mg, Oral, EVERY MORNING BEFORE BREAKFAST, First dose on Tue06/20/19 at 0730, Until Discontinued Given 06/21/2019 8:39 AM EDT 40 mg Given 06/20/2019 8:21 AM EDT 40 mg prochlorperazine (COMPAZINE) injection 10 mg 10 mg, Intravenous, EVERY 6 HOURS PRN, Starting on Tue06/19/19 at 2149, Until Tue06/19/19 at 2359, Nausea, STAT Given 06/19/2019 9:54 PM EDT 10 mg prochlorperazine (COMPAZINE) injection 5 mg 5 mg, Intravenous, EVERY 6 HOURS PRN, Starting on Tue06/19/19 at 2358, Until Tue06/21/19 at 1838, Nausea, Routine sertraline (ZOLOFT) tablet 50 mg 50 mg, Oral, DAILY, First dose on Tue06/20/19 at 0900, Until Discontinued, Routine Given 06/21/2019 8:39 AM EDT 50 mg Given 06/20/2019 8:21 AM EDT 50 mg sodium chloride 0.9 % (flush) flush 5 mL 5 mL, Intravenous, 2 TIMES DAILY, First dose on Tue06/19/19 at 2315, Until Discontinued, Routine Given 06/21/2019 8:40 AM EDT 5 mLs Given 06/20/2019 9:00 PM EDT 5 mLs Given 06/20/2019 8:22 AM EDT 5 mLs sodium chloride 0.9% 1,000 mL IV bolus at 1,000 mL/hr, Intravenous, ONCE, 1 dose, On Tue06/19/19 at 2330 New Bag 06/19/2019 11:10 PM EDT 1 000 mL/hr documented in this encounter Active and Recently Administered Medications Times are shown in EDT. Scheduled Medication Order 06/19/2019 06/20/2019 06/21/2019 acetaminophen (OFIRMEV) injection 1,000 mg (COMPLETED) 1,000 mg, Intravenous, at 400 mL/hr, Administer over 15 Minutes, ONCE, 1 dose, On Tue06/20/19 at 0415, Routine, Is ketorolac (Toradol) IV contraindicated? Yes, Can this patient tolerate oral medications or suppositories? Yes 0405 (Given - Provider: Jose Roberto Cortes) magnesium sulfate 2 g in sterile water 50 mL (COMPLETED) 2 g, Intravenous, ONCE, 1 dose, On Tue06/20/19 at 0245, Administer over 120 Minutes 0429 (New Bag - Provider: Jose Roberto Cortes)0629 (Stopped - Provider: Jose Roberto Cortes) montelukast (SINGULAIR) tablet 10 mg 10 mg, Oral, DAILY, First dose on Tue06/21/19 at 0900, Until Discontinued, Routine 0840 (Given - Provider: Yadira Villarreal, CHATO) pantoprazole (PROTONIX) tablet 40 mg 40 mg, Oral, EVERY MORNING BEFORE BREAKFAST, First dose on Tue06/20/19 at 0730, Until Discontinued 0821 (Given - Provider: Yadira Villarreal RN) 0839 (Given - Provider: Yadira Villarreal RN) sertraline (ZOLOFT) tablet 50 mg 50 mg, Oral, DAILY, First dose on Tue06/20/19 at 0900, Until Discontinued, Routine 0821 (Given - Provider: Yadira Villarreal, CHATO) 0839 (Given - Provider: Yadira Villarreal RN) sodium chloride 0.9 % (flush) flush 5 mL 5 mL, Intravenous, 2 TIMES DAILY, First dose on Tue06/19/19 at 2315, Until Discontinued, Routine 2257 (Given - Provider: Sandy High RN) 0822 (Given - Provider: Yadira Villarreal RN)2100 (Given - Provider: Jose Roberto Cortes) 0840 (Given - Provider: Yadira Villarreal RN) sodium chloride 0.9% 1,000 mL IV bolus (COMPLETED) at 1,000 mL/hr, Intravenous, ONCE, 1 dose, On Tue06/19/19 at 2330 2310 (New Bag - Provider: Sandy High RN) 0010 (Stopped - Provider: Sandy High RN) Continuous Medication Order 06/19/2019 06/20/2019 06/21/2019 dextrose 5% and sodium chloride 0.9% infusion (CANCELED) 150 mL/hr, Intravenous, CONTINUOUS, Starting on Tue06/19/19 at 2215, Until Tue06/19/19 at 2231 2206 (New Bag - Provider: Sandy High RN)2250 (Stopped - Provider: Sandy High RN) dextrose 5% and sodium chloride 0.9% infusion (CANCELED) 200 mL/hr, Intravenous, CONTINUOUS, Starting on Tue06/19/19 at 2300, Until Tue06/20/19 at 0112 2257 (New Bag - Provider: Sandy High RN) 0340 (Stopped - Provider: Jose Roberto Cortes) lactated ringers infusion (CANCELED) 100 mL/hr, Intravenous, CONTINUOUS, Starting on Tue06/20/19 at 0130, Until Tue06/20/19 at 1226 0341 (New Bag - Provider: Jose Roberto Cortes)0800 (Rate/Dose Verify - Provider: Yadira Villarreal, CHATO)1000 (Rate/Dose Verify - Provider: Yadira Villarreal RN)1451 (Paused - Provider: Elizabeth Valdez, CHATO) PRN Medication Order 06/19/2019 06/20/2019 06/21/2019 acetaminophen (TYLENOL) tablet 650 mg 650 mg, Oral, EVERY 4 HOURS PRN, Starting on Tue06/19/19 at 2247, Until Tue06/21/19 at 1838, Pain, Fever, Maximum dose of acetaminophen is 4000 mg from all sources in 24 hours., Routine 0754 (Given - Provider: Yadira Villarreal RN)1608 (Given - Provider: Yadira Villarreal RN)2102 (Given - Provider: Jose Roberto Cortes) 0038 (Given - Provider: Jose Roberto Cortes)0412 (Given - Provider: Jose Roberto Cortes)1355 (Given - Provider: Elizabeth Valdez, CHATO) albuterol (PROVENTIL) nebulizer solution 2.5 mg 2.5 mg, Nebulization, EVERY 4 HOURS PRN, Starting on Tue06/19/19 at 2247, Until Tammy 06/21/19 at 1838, Wheezing, Shortness of Breath, Routine dextrose 50% intravenous solution 25-50 mL(Linked Group 1) 25-50 mL (12.5-25 g), Intravenous, EVERY 1 HOUR PRN, Starting on Tue06/20/19 at 0220, Until Tue06/21/19 at 1838, Low blood sugar, For BG 50-70 mg/dL: Oral treatment preferred:?? If able to drink, give 120 mL Juice or Regular (not diet) soda OR If NPO, give 15 gram glucose 40% oral gel massaged into buccal mucosa OR if unconscious or uncooperative, give 12.5 gram (25 mL) Dextrose 50% IV OR, if no IV access, give 1 mg Glucagon IM. For BG less than 50 mg/dL: Oral treatment preferred:?? If able to drink, give 240 mL Juice or Regular (not diet) soda OR If NPO, give 30 gram glucose 40% oral gel massaged in buccal mucosa OR if unconscious or uncooperative, give 25 gram (50 mL) Dextrose 50% IV OR, if no IV access, give 1 mg Glucagon IM. Recheck BG in 30 minutes. May repeat juice, gel, dextrose or glucagon once per episode. To avoid extravasation, push Dextrose 50% SLOWLY (3 mL over 1 minute) in a patent, running IV, preferably a central line. For persistent hypoglycemia, consider longer-acting treatment for the duration of the active insulin., Routine glucagon (human recombinant) injection SolR 1 mg(Linked Group 1) 1 mg, Intramuscular, EVERY 1 HOUR PRN, Starting on Tue06/20/19 at 0220, Until Tammy 06/21/19 at 1838, Low blood sugar, For BG 50-70 mg/dL: Oral treatment preferred:?? If able to drink, give 120 mL Juice or Regular (not diet) soda OR If NPO, give 15 gram glucose 40% oral gel massaged into buccal mucosa OR if unconscious or uncooperative, give 12.5 gram (25 mL) Dextrose 50% IV OR, if no IV access, give 1 mg Glucagon IM. For BG less than 50 mg/dL: Oral treatment preferred:?? If able to drink, give 240 mL Juice or Regular (not diet) soda OR If NPO, give 30 gram glucose 40% oral gel massaged in buccal mucosa OR if unconscious or uncooperative, give 25 gram (50 mL) Dextrose 50% IV OR, if no IV access, give 1 mg Glucagon IM. Recheck BG in 30 minutes. May repeat juice, gel, dextrose or glucagon once per episode. To avoid extravasation, push Dextrose 50% SLOWLY (3 mL over 1 minute) in a patent, running IV, preferably a central line. For persistent hypoglycemia, consider longer-acting treatment for the duration of the active insulin., Routine glucose (GLUTOSE) 40% oral gel(Linked Group 1) 15-30 g, Buccal, EVERY 30 MIN PRN, Starting on Tue06/20/19 at 0220, Until Tammy 06/21/19 at 1838, Low blood sugar, For BG 50-70 mg/dL: Oral treatment preferred:?? If able to drink, give 120 mL Juice or Regular (not diet) soda OR If NPO, give 15 gram glucose 40% oral gel massaged into buccal mucosa OR if unconscious or uncooperative, give 12.5 gram (25 mL) Dextrose 50% IV OR, if no IV access, give 1 mg Glucagon IM. For BG less than 50 mg/dL: Oral treatment preferred:?? If able to drink, give 240 mL Juice or Regular (not diet) soda OR If NPO, give 30 gram glucose 40% oral gel massaged in buccal mucosa OR if unconscious or uncooperative, give 25 gram (50 mL) Dextrose 50% IV OR, if no IV access, give 1 mg Glucagon IM. Recheck BG in 30 minutes. May repeat juice, gel, dextrose or glucagon once per episode. To avoid extravasation, push Dextrose 50% SLOWLY (3 mL over 1 minute) in a patent, running IV, preferably a central line. For persistent hypoglycemia, consider longer-acting treatment for the duration of the active insulin. 1 tube contains 15 grams of glucose (net weight of tube = 37.5 grams., Routine iohexol (OMNIPAQUE) 350 mg/mL solution 0-200 mL (COMPLETED) 0-200 mL, Intravenous, ONCE PRN, 1 dose, Starting on Tue06/20/19 at 0542, Until Tue06/20/19 at 0542, Per Protocol, Warning Vesicant/Irritant Medication , Radiology Contrast, Routine 0542 (Given - Provider: Vitor Hazel) lidocaine (XYLOCAINE) 10 mg/mL (1 %) injection 3 mg 3 mg (0.3 mL), Subcutaneous, ONCE PRN, 1 dose, Starting on Tue06/19/19 at 2247, Until Tue06/21/19 at 1838, for discomfort with PIV insertion, Routine ondansetron (ZOFRAN) injection 4 mg 4 mg, Intravenous, EVERY 8 HOURS PRN, Starting on Tue06/19/19 at 2231, Until Tue06/21/19 at 1838, Nausea not relieved with compazine (use compazine first), Routine 2311 (Given - Provider: Sandy High RN) oxyCODONE (ROXICODONE) immediate release tablet 5 mg 5 mg, Oral, EVERY 4 HOURS PRN, Starting on Tue06/21/19 at 0548, Until Tue06/21/19 at 1838, Pain, Routine 0839 (Given - Provider: Yadira Villarreal, RN)1241 (Given - Provider: Yadira Villarreal RN) prochlorperazine (COMPAZINE) injection 10 mg (CANCELED) 10 mg, Intravenous, EVERY 6 HOURS PRN, Starting on Tue06/19/19 at 2149, Until Tue06/19/19 at 2359, Nausea, STAT 2154 (Given - Provider: Sandy High RN) prochlorperazine (COMPAZINE) injection 5 mg 5 mg, Intravenous, EVERY 6 HOURS PRN, Starting on Tue06/19/19 at 2358, Until Tue06/21/19 at 1838, Nausea, Routine sodium chloride 0.9 % (flush) flush 5-20 mL 5-20 mL, Intravenous, EVERY 1 MIN PRN, Starting on Tue06/19/19 at 2247, Until Tue06/21/19 at 1838, flush, Flush pertains to all indwelling lines. Flush per protocol found in the job aid using the link provided on this medication record., Routine Linked Groups Order Group 1: glucose (GLUTOSE) 40% oral gelJump to med 15-30 g, Buccal, EVERY 30 MIN PRN, Starting on Tue06/20/19 at 0220, Until Tue06/21/19 at 1838, Low blood sugar, For BG 50-70 mg/dL: Oral treatment preferred:?? If able to drink, give 120 mL Juice or Regular (not diet) soda OR If NPO, give 15 gram glucose 40% oral gel massaged into buccal mucosa OR if unconscious or uncooperative, give 12.5 gram (25 mL) Dextrose 50% IV OR, if no IV access, give 1 mg Glucagon IM. For BG less than 50 mg/dL: Oral treatment preferred:?? If able to drink, give 240 mL Juice or Regular (not diet) soda OR If NPO, give 30 gram glucose 40% oral gel massaged in buccal mucosa OR if unconscious or uncooperative, give 25 gram (50 mL) Dextrose 50% IV OR, if no IV access, give 1 mg Glucagon IM. Recheck BG in 30 minutes. May repeat juice, gel, dextrose or glucagon once per episode. To avoid extravasation, push Dextrose 50% SLOWLY (3 mL over 1 minute) in a patent, running IV, preferably a central line. For persistent hypoglycemia, consider longer- acting treatment for the duration of the active insulin. 1 tube contains 15 grams of glucose (net weight of tube = 37.5 grams., Routine Or dextrose 50% intravenous solution 25-50 mLJump to med 25-50 mL (12.5-25 g), Intravenous, EVERY 1 HOUR PRN, Starting on Tue06/20/19 at 0220, Until Tammy 06/21/19 at 1838, Low blood sugar, For BG 50-70 mg/dL: Oral treatment preferred:?? If able to drink, give 120 mL Juice or Regular (not diet) soda OR If NPO, give 15 gram glucose 40% oral gel massaged into buccal mucosa OR if unconscious or uncooperative, give 12.5 gram (25 mL) Dextrose 50% IV OR, if no IV access, give 1 mg Glucagon IM. For BG less than 50 mg/dL: Oral treatment preferred:?? If able to drink, give 240 mL Juice or Regular (not diet) soda OR If NPO, give 30 gram glucose 40% oral gel massaged in buccal mucosa OR if unconscious or uncooperative, give 25 gram (50 mL) Dextrose 50% IV OR, if no IV access, give 1 mg Glucagon IM. Recheck BG in 30 minutes. May repeat juice, gel, dextrose or glucagon once per episode. To avoid extravasation, push Dextrose 50% SLOWLY (3 mL over 1 minute) in a patent, running IV, preferably a central line. For persistent hypoglycemia, consider longer-acting treatment for the duration of the active insulin., Routine Or glucagon (human recombinant) injection SolR 1 mgJump to med 1 mg, Intramuscular, EVERY 1 HOUR PRN, Starting on Tue06/20/19 at 0220, Until Tammy 06/21/19 at 1838, Low blood sugar, For BG 50-70 mg/dL: Oral treatment preferred:?? If able to drink, give 120 mL Juice or Regular (not diet) soda OR If NPO, give 15 gram glucose 40% oral gel massaged into buccal mucosa OR if unconscious or uncooperative, give 12.5 gram (25 mL) Dextrose 50% IV OR, if no IV access, give 1 mg Glucagon IM. For BG less than 50 mg/dL: Oral treatment preferred:?? If able to drink, give 240 mL Juice or Regular (not diet) soda OR If NPO, give 30 gram glucose 40% oral gel massaged in buccal mucosa OR if unconscious or uncooperative, give 25 gram (50 mL) Dextrose 50% IV OR, if no IV access, give 1 mg Glucagon IM. Recheck BG in 30 minutes. May repeat juice, gel, dextrose or glucagon once per episode. To avoid extravasation, push Dextrose 50% SLOWLY (3 mL over 1 minute) in a patent, running IV, preferably a central line. For persistent hypoglycemia, consider longer-acting treatment for the duration of the active insulin., Routine documented in this encounter Care Teams Attendance Clerk Relationship Specialty Start Date End Date Ritu Bolaños APRN [address] [place] [address] PCP - General 05/07/15 02/03/22 documented as of this encounter
--- OUTSIDE RECORDS SUMMARY | 2024-04-12 15:16 | XMS_ITS | Encounter Summary ---
Author Organization [facility] [place] [address] Care Team Providers Care Plant Utility Person Name Role Phone Ritu Bolaños APRN Primary Care Provider [phone]- [phone] Encounter Details Date Type Department Care Team (Late st Contact Info) Description 06/18/2019 Orders Only Orthopaedics at [facility] [address] [place] [address] Dave Reed PA [address] [place] [address] Social History Tobacco Use Types Packs/Day Years [...] on filedocumented in this encounter Care Teams Plant Utility Person Relationship Specialty Start Date End Date Ritu Bolaños APRN [address] [place] [id number] PCP - General 05/07/15 02/03/22 documented as of this encounter
--- OUTSIDE RECORDS SUMMARY | 2024-04-12 15:16 | XMS_ITS | Encounter Summary ---
Author Organization [facility] [place] [address] Care Team Providers Care Supersonic Engineer Name Role Phone Ritu Bolaños APRN Primary Care Provider [phone]- [phone] Encounter Details Date Type Department Care Team (Late st Contact Info) Description 03/27/2019 Orders Only Orthopaedics at [facility] [address] [place] [address] Eric Soto MD [address] [place] [address] Presence of right artificial hip joint Social [...] means documented in this encounter Care Teams Supersonic Engineer Relationship Specialty Start Date End Date Ritu Bolaños APRN [address] [place] [phone] PCP - General 05/07/15 02/03/22 documented as of this encounter
--- OUTSIDE RECORDS SUMMARY | 2024-04-12 15:16 | XMS_ITS | Encounter Summary ---
Author Organization [facility] [place] [address] Care Team Providers Care Distiller Name Role Phone Ritu Bolaños RAEANN Primary Care Provider +1- [phone] Reason for Visit * Auth/Cert Specialty Diagnoses / Procedures Referred By Contac t Referred To Contact Diagnoses Hip OA/DJD Procedures PRO TOTAL HIP ARTHROPLASTY @TOTAL HIP ARTHROPLASTY, ANTERIOR APPROACH (WRVU 20.72) MODIFIER HAMMOND & NEPHEW - R3 ACETABULAR CUP MODIFIER HAMMOND [employer] NEPHEW - POLAR STEM CEMENTLESS Referral ID Status Reason Start Date Expiration Date Visits Re quested Visits Authorized [id number] 1 1 Encounter Details Date Type Department Care Team (Late st Contact Info) Description 06/19/2019 7:35 AM EDT Ancillary Procedure Radiology [place]ray [place] [address] Social History Tobacco Use Types Packs/Day Years [...] Name Priority Date/Time Associated Diagnosis Comments XR FLUORO NO RAD <1HR - OR USE Routine 06/19/2019 9:44 AM EDT documented in this encounter Results * XR Fluoro No Rad <1Hr - OR Use (06/19/2019 9:44 AM EDT) Narrative RAD - 06/19/2019 9:45 AM EDT This exam is auto-finalizing. No interpretation was done. Eric Soto MD IMG FLUORO ORDERABLE S Performing Organization Address City/State/[facility] Co de Phone Number [place], [place] documented in this encounter Visit Diagnoses Not on filedocumented in this encounter Care Teams Distiller Relationship Specialty Start Date End Date Ritu Bolaños APRN [address] [place] [phone] PCP - General 05/07/15 02/03/22 documented as of this encounter
--- OUTSIDE RECORDS SUMMARY | 2024-04-12 15:16 | XMS_ITS | Encounter Summary ---
Author Organization [facility] [place] [address] Care Team Providers Care Layout Worker Name Role Phone Ritu Bolaños APRN Primary Care Provider [phone]- [phone] Encounter Details Date Type Department Care Team (Late st Contact Info) Description 03/27/2019 Orders Only Orthopaedics at [facility] [place] [address] [place] [address] Eric Soto MD [address] [place] [address] Primary osteoarthritis of right hip Social History Tobacco Use Types Packs/Day Years Used Date Smoking Tobacco: Never Assessed Sex and Gender Information Value Date Recorded Sex Assigned at Not on file Gender Identity Female 09/25/2020 7:37 PM EST Sexual Orientation Not on file documented as of this encounter Plan of Treatment Scheduled Orders Name Type Priority Associated Diagnoses Orde r Schedule @TOTAL HIP ARTHROPLASTY, ANTERIOR APPROACH Procedures Routine Primary osteoarthritis of right hip Ordered: 03/27/2019 documented as of this encounter Visit Diagnoses Diagnosis Primary osteoarthritis of right hip Primary localized osteoarthrosis, pelvic region and thigh documented in this encounter Care Teams Layout Worker Relationship Specialty Start Date End Date Ritu Bolaños APRN [address] [place] [phone] PCP - General 05/07/15 02/03/22 documented as of this encounter
--- OUTSIDE RECORDS SUMMARY | 2024-04-12 15:16 | XMS_ITS | Encounter Summary ---
[place] [address] Care Team Providers Care Time Study Statistician Name Role Phone Ritu Bolaños APRN Primary Care Provider [phone]- [phone] Reason for Visit * Reason Onset Date Comments Other 06/15/2019 wound on arm Encounter Details Date Type Department Care Team (Late st Contact Info) Description 06/15/2019 Telephone Orthopaedics at [facility] [address] [place] [phone] Eric Soto MD [address] [employer] [place] [address] Other (wound on arm) Social History Tobacco Use Types Packs/Day Years [...] Telephone Encounter - Elizabeth Holguin RN - 06/15/2019 3:48 PM EDT Patient is scheduled for RT THR on 06/19. She states that she has thin skin and she bumped her rt arm on a towel rack. She saw her pcp on 06/14 as it was broken skin, red and swollen. She had a low grade temp of 99 at the appt. The pcp did not feel it was infected but did give her abx for 5 days. She will complete these on Tuesday, the day before surgery. I advised that we would look at the wound on day of surgery but if Dr Soto felt it to be an infection risk then she has the possibility of getting cxld. Patient understood. documented in this encounter Plan of Treatment Not on file documented as of this encounter Visit Diagnoses Not on filedocumented in this encounter Care Teams Time Study Statistician Relationship Specialty Start Date End Date Ritu Bolaños APRN [address] [place] [address] PCP - General 05/07/15 02/03/22 documented as of this encounter
--- OUTSIDE RECORDS SUMMARY | 2024-04-12 15:16 | XMS_ITS | Encounter Summary ---
[place] [address] Care Team Providers Care Loss Prevention Research Engineer Name Role Phone Ritu Bolaños APRN Primary Care Provider [phone] Encounter Details Date Type Department Care Team (Latest Contact Info) Description 06/08/2019 12:00 PM EDT Office Visit Orthopaedics at [address] [address] Eric Soto MD [address] [place] [address] Primary osteoarthritis of right hip Social History Tobacco Use Types Packs/Day Years Used Date Smoking Tobacco: Never Assessed Sex and Gender Information Value Date Recorded Sex Assigned at Not on file Gender Identity Female 09/25/2020 7:37 PM EST Sexual Orientation Not on file documented as of this encounter Patient Instructions * Patient Instructions* Elizabeth Holguin RN - 06/08/2019 12:00 PM EDT Surgical Consent -Surgery: Right direct anterior, total hip arthroplasty with a Sorto and Nephew implant. Date: 06/19/19 - Non-operative options were reviewed: activity modification, physical therapy, medication, injection, assistive devices. The patient has failed with these non- operative modalities. - The patient is significantly impacted with their worsening pain, weakness and decreased range of motion. The pain is affecting their quality of life and ability to perform ADL's. The patient would like to proceed with surgical intervention and will be prepared for surgery at [facility] on 06/19/19. - The consent was reviewed with the patient in its entirety and signed during the office visit today. - I reviewed the surgical as well as non-operative measures, and we discussed the risks of infection, blood clot, fracture, dislocation, leg length inequality, ongoing pain, nerve or blood vessel injury, reoperation and the risk of anesthesia. Pre Op Medical Clearance - The patient has not yet been seen by their PCP and has not yet been medically cleared to proceed with the planned procedure. Pre op exam is on 06/11/19. Pre Op Instructions - No food or drink after midnight the night before surgery. - Hibiclens antimicrobial wash was provided to the patient today. Please wash with Hibiclens the night before surgery and the morning of surgery, paying special attention to the surgical site area. Use clean towels with each shower, put on clean clothes after each shower, and put clean sheets on the bed the night before surgery. You may use your own face wash and shampoo. Recommend avoiding use on genital region. - Confirmed that patient obtained Mupirocin from the pharmacy and reviewed instructions to apply small amount to both nostrils morning and night for 5 consecutive days the week prior to surgery. - You may continue to use NSAIDs for pain control up to the day prior to surgery. (Advil, Motrin, Aleve, ibuprofen, naproxen) - If you take multivitamins containing Vitamin K, Vitamin E, Fish Oil or herbal supplements, you should stop these medications 7 days prior to surgery. - If you take any of the following medications, please contact the office for instructions on when to stop them prior to surgery: methotrexate, Arava (leflunomide), Gold, Azulfidine (sulfasalazine), Plaquenil (hydroychloroquine), Imuran (azathioprine), cyclosporine, Cytoxan (cyclophosphamide), Cuprimine (penicillamine), Enbrel (etanercept ), Humira (adalimumab), Remicade (infliximab), Kineret (anakinra), Rituxan (rituximab). - Items to warp picker and have at home for use after surgery: Prune juice, bottle of Aspirin 81mg tabs, Colace (docusate sodium) 100mg capsules, Miralax powder (polyethylene glycol), Bottle of Extra Strength Tylenol (acetaminophen) 500mg tabs. Sleep Apnea: - Have you ever been diagnosed with sleep apnea? no - If you have a CPAP (continuous positive airway pressure) machine, please bring it with you on theday of surgery. Pre Admission Testing (PAT) - The PAT office will send you a letter in the mail with a phone number and a time to call in. During that call they will give you a 'tentative' arrival time for surgery. Your 'actual' arrival time will be confirmed the day before surgery by a phone call from the Pre-op staff. If you have not received your letter within a week of your surgery, you can reach the nurses in the PAT office at . DVT Prevention - Have you ever had a clot in your leg (Deep Vein Thrombosis or DVT) or a clot in your lung (Pulmonary Embolism or PE)? no - Have any of your family members ever had a DVT or PE? no - Have you had a personal history of cancer in the last two years? no - Do you have a clotting or bleeding disorder? no - Do you take any blood thinning medications such as Coumadin (warfarin), Plavix (clopidogrel) or Xarelto (rivaraoxaban)? no - The patient has no risk factors for thromboembolic disease, in other words no previous DVT (a clot in your leg) or PE (a clot in your lung), no cancer history in the last 2 years, no family historyof DVT, PE or clotting disorder and consequently we will use aspirin 81 mg by mouth twice a day for4 weeks after surgery for clot prevention. Post Op Instructions -Pain medication will be prescribed upon discharge from the hospital -Narcotic pain medications can cause constipation. We recommend taking over the counter Colace (docusate) 100mg by mouth twice daily while taking the pain medication. - After surgery, you can also use Tylenol (acetaminophen) for pain. Extra Strength Tylenol 500mg tablets. Take 2 tablets, 3 times a day. DO NOT EXCEED 3000mg in a 24 hour period. Anesthesia and code status - Anesthesia: Spinal and Sedation Code Status: Full code. Rehabilitation and Post Op Instructions - Rehabilitation: She plans to go home after surgery with [facility] for Physical Therapy. - Expected Length of Stay in hospital:1-2 days - Support at home after surgery: Pablo - Best phone number to reach you at after surgery: [phone] - You may shower the day after surgery. No baths, pools , hot tubs or submerging the incision for 1month post-op or until the wound is completely healed. - Disposition: A post-operative follow-up appointment has already been scheduled. Please plan to arrive early for check-in and x-rays. - No driving for 4 weeks after surgery. - Dressing can be removed 5 days after surgery. You will be given another dressing to apply once the first is removed. Remove 5 days after applying. - Ice is recommended for 20 minutes of every hour. - Bruising, swelling and pain are to be expected during the post-operative recovery period and should resolve over time. Please keep in mind that the initial recovery period is four weeks and total recovery is one year. - Some numbness, burning or stinging can be a normal part of healing after surgery. - Lifting restriction of 10lbs for post-operative month 1, then lifting restriction of 25 lbs for post-op months 2 and 3. Avoid high impact exercises. Avoid twisting motions. Do not pivot on your operative leg. Returning to high impact/endurance activities should be to tolerance after post-op month3. Additional Instructions - No dental procedures for 1 month PRIOR to surgeryand 6 months AFTER surgery. Please call us for antibiotics prior to any dental work. - Bring your walker with you on the day of surgery. Physical therapy will adjust the height for youand assist with proper use. - Post-op follow-up visits are scheduled at 1 month, 3 months, 1 year, 5 year, 10 years. You will have x-rays at all of these visits with the exception of the 3 month visit. - If you have any questions, please call us at . You can ask to speak with any of ourRegistered Nurses. - Patient was provided with the Opioid Factsheet, material reviewed and patient verbalized understanding documented in this encounter Progress Notes * Eric Soto MD - 06/08/2019 12:00 PM EDT Surgical Consent -Surgery: Right direct anterior, total hip arthroplasty with a Sorto and Nephew implant. Date: 06/19/19 - Non-operative options were reviewed: activity modification, physical therapy, medication, injection, assistive devices. The patient has failed with these non- operative modalities. - The patient is significantly impacted with their worsening pain, weakness and decreased range of motion. The pain is affecting their quality of life and ability to perform ADL's. The patient would like to proceed with surgical intervention and will be prepared for surgery at [facility] on 06/19/19. - The consent was reviewed with the patient in its entirety and signed during the office visit today. - I reviewed the surgical as well as non-operative measures, and we discussed the risks of infection, blood clot, fracture, dislocation, leg length inequality, ongoing pain, nerve or blood vessel injury, reoperation and the risk of anesthesia. Pre Op Medical Clearance - The patient has not yet been seen by their PCP and has not yet been medically cleared to proceed with the planned procedure. Pre op exam is on 06/11/19. Pre Op Instructions - No food or drink after midnight the night before surgery. - Hibiclens antimicrobial wash was provided to the patient today. Please wash with Hibiclens the night before surgery and the morning of surgery, paying special attention to the surgical site area. Use clean towels with each shower, put on clean clothes after each shower, and put clean sheets on the bed the night before surgery. You may use your own face wash and shampoo. Recommend avoiding use on genital region. - Confirmed that patient obtained Mupirocin from the pharmacy and reviewed instructions to apply small amount to both nostrils morning and night for 5 consecutive days the week prior to surgery. - You may continue to use NSAIDs for pain control up to the day prior to surgery. (Advil, Motrin, Aleve, ibuprofen, naproxen) - If you take multivitamins containing Vitamin K, Vitamin E, Fish Oil or herbal supplements, you should stop these medications 7 days prior to surgery. - If you take any of the following medications, please contact the office for instructions on when to stop them prior to surgery: methotrexate, Arava (leflunomide), Gold, Azulfidine (sulfasalazine), Plaquenil (hydroychloroquine), Imuran (azathioprine), cyclosporine, Cytoxan (cyclophosphamide), Cuprimine (penicillamine), Enbrel (etanercept ), Humira (adalimumab), Remicade (infliximab), Kineret (anakinra), Rituxan (rituximab). - Items to warp picker and have at home for use after surgery: Prune juice, bottle of Aspirin 81mg tabs, Colace (docusate sodium) 100mg capsules, Miralax powder (polyethylene glycol), Bottle of Extra Strength Tylenol (acetaminophen) 500mg tabs. Sleep Apnea: - Have you ever been diagnosed with sleep apnea? no - If you have a CPAP (continuous positive airway pressure) machine, please bring it with you on theday of surgery. Pre Admission Testing (PAT) - The PAT office will send you a letter in the mail with a phone number and a time to call in. During that call they will give you a 'tentative' arrival time for surgery. Your 'actual' arrival time will be confirmed the day before surgery by a phone call from the Pre-op staff. If you have not received your letter within a week of your surgery, you can reach the nurses in the PAT office at . DVT Prevention - Have you ever had a clot in your leg (Deep Vein Thrombosis or DVT) or a clot in your lung (Pulmonary Embolism or PE)? no - Have any of your family members ever had a DVT or PE? no - Have you had a personal history of cancer in the last two years? no - Do you have a clotting or bleeding disorder? no - Do you take any blood thinning medications such as Coumadin (warfarin), Plavix (clopidogrel) or Xarelto (rivaraoxaban)? no - The patient has no risk factors for thromboembolic disease, in other words no previous DVT (a clot in your leg) or PE (a clot in your lung), no cancer history in the last 2 years, no family historyof DVT, PE or clotting disorder and consequently we will use aspirin 81 mg by mouth twice a day for4 weeks after surgery for clot prevention. Post Op Instructions -Pain medication will be prescribed upon discharge from the hospital -Narcotic pain medications can cause constipation. We recommend taking over the counter Colace (docusate) 100mg by mouth twice daily while taking the pain medication. - After surgery, you can also use Tylenol (acetaminophen) for pain. Extra Strength Tylenol 500mg tablets. Take 2 tablets, 3 times a day. DO NOT EXCEED 3000mg in a 24 hour period. Anesthesia and code status - Anesthesia: Spinal and Sedation Code Status: Full code. Rehabilitation and Post Op Instructions - Rehabilitation: She plans to go home after surgery with [facility] for Physical Therapy. - Expected Length of Stay in hospital:1-2 days - Support at home after surgery: Pablo - Best phone number to reach you at after surgery: [phone] - You may shower the day after surgery. No baths, pools , hot tubs or submerging the incision for 1month post-op or until the wound is completely healed. - Disposition: A post-operative follow-up appointment has already been scheduled. Please plan to arrive early for check-in and x-rays. - No driving for 4 weeks after surgery. - Dressing can be removed 5 days after surgery. You will be given another dressing to apply once the first is removed. Remove 5 days after applying. - Ice is recommended for 20 minutes of every hour. - Bruising, swelling and pain are to be expected during the post-operative recovery period and should resolve over time. Please keep in mind that the initial recovery period is four weeks and total recovery is one year. - Some numbness, burning or stinging can be a normal part of healing after surgery. - Lifting restriction of 10lbs for post-operative month 1, then lifting restriction of 25 lbs for post-op months 2 and 3. Avoid high impact exercises. Avoid twisting motions. Do not pivot on your operative leg. Returning to high impact/endurance activities should be to tolerance after post-op month3. Additional Instructions - No dental procedures for 1 month PRIOR to surgeryand 6 months AFTER surgery. Please call us for antibiotics prior to any dental work. - Bring your walker with you on the day of surgery. Physical therapy will adjust the height for youand assist with proper use. - Post-op follow-up visits are scheduled at 1 month, 3 months, 1 year, 5 year, 10 years. You will have x-rays at all of these visits with the exception of the 3 month visit. - If you have any questions, please call us at . You can ask to speak with any of ourRegistered Nurses. - Patient was provided with the Opioid Factsheet, material reviewed and patient verbalized understanding documented in this encounter Plan of Treatment Not on file documented as of this encounter Visit Diagnoses Diagnosis Primary osteoarthritis of right hip Primary localized osteoarthrosis, pelvic region and thigh documented in this encounter Care Teams Loss Prevention Research Engineer Relationship Specialty Start Date End Date Ritu Bolaños APRN [address] [place] [address] PCP - General 05/07/15 02/03/22 documented as of this encounter
--- OUTSIDE RECORDS SUMMARY | 2024-04-12 15:16 | XMS_ITS | Encounter Summary ---
Author Organization [facility] [place] [address] Care Team Providers Care Tub Mender Name Role Phone Ritu Bolaños APRN Primary Care Provider [phone]- [phone] Encounter Details Date Type Department Care Team (Latest Contact Info) Description 03/16/2019 12:46 PM EDT - 03/16/2019 11:59 PM EDT Hospital Encounter XRay at [address] [place] [address] Eric Soto MD [address] [place] [address] Pain in right hip Discharge Disposition: Home Social History Tobacco Use Types Packs/Day Years Used Date Smoking Tobacco: Never Assessed Sex and Gender Information Value Date Recorded Sex Assigned at Not on file Gender Identity Female 09/25/2020 7:37 PM EST Sexual Orientation Not on file documented as of this encounter Discharge Instructions * Patient Instructions* Vitor Butler - 03/16/2019 1:20 PM EDT Post Injection Patient Injections You received an injection by TERRIE DEL CASTILLO in the diagnostic section of radiology. Procedure: RT HIP INJECTION In the days following the injection: ??? Low intensity movement and exercise of the affected joint. ??? Avoid movements that worsen pain. During the first 48 hours following the injection you may experience mild discomfort at the injection site. If you experience pain or discomfort in the affected area, do the following: ??? Apply cold compress to the affected area. ??? If allowed by your physician, take an anti-inflammatory medication such as ibuprofen (example: Advil), Acetaminophen 9example: Tylenol) or Aspirin. IMPORTANT The risk of infection exists whenever the skin is punctured. The risk can be minimized by keeping the injection site clean. However, be aware of the following signs of an infection: ??? Redness and swelling at the injection site. ??? Increased pain. ??? Fever and/or chills. ??? Decreased range of motion in the joint near the injection site. If you experience any of the signs of infection listed above, telephone the diagnostic section of radiology at [phone]. documented in this encounter Medications at Time of Discharge Medication Sig Dispensed Refills Start Date End Date albuterol (PROVENTIL HFA) 90 mcg/actuation HFA Aerosol Inhaler 2 puffs every 4 hours as needed. albuterol (PROVENTIL) 2.5 mg /3 mL (0.083 %) Solution for NebulizationIndications: every 4 to 6 hours as needed Take 2.5 mg by nebulization. Indications: every 4 to 6 hours as needed fluticasone propionate (FLONASE) 50 mcg/actuation Cade, Suspension 2 sprays by Each Nare route nightly. Magnesium Oxide 250 mg magnesium Tablet Take 2 tablets by mouth daily. multivitamin (THERAGRAN) Tablet Take 1 tablet by mouth daily. budesonide (PULMICORT FLEXHALER) 180 mcg/actuation Aerosol Powdr [...] mouth daily as needed for Allergies. 01/24/2020 triamterene-hydrochlorot hiazide (DYAZIDE) 37.5-25 mg Capsule Take 2 capsules by mouth daily. 06/21/2019 potassium chloride 20 mEq Tablet Sustained Release Take by mouth. 06/05/2019 ferrous gluconate 240 mg (27 mg iron) Tablet Take 240 mg by mouth daily. 1 02/27/2019 11/28/2019 omeprazole (PRILOSEC) 40 mg Capsule, Delayed Release(E.C.) take 1 capsule by mouth twice a day 0 01/12/2019 11/28/2019 LAXATIVE PEG 3350 17 gram/dose Powder TAKE 17 GRAMS MIXED DIRECTED BY MOUTH ONCE TO THREE TIMES DAILY DIRECTED 1 02/22/2019 01/16/2020 sucralfate (CARAFATE) 1 gram Tablet TAKE 1 TABLET BY MOUTH 4 TIMES DAILY DIRECTED BEFORE MEALS AND BEDTIME 1 02/22/2019 06/12/2019 sertraline (ZOLOFT) 25 mg Tablet Take by mouth. 06/05/2019 alendronate (FOSAMAX) 70 mg TabletIndications:TAKES EITHER TUESDAY OR TUESDAY Take 70 mg by mouth every 7 days. Indications: TAKES EITHER TUESDAY OR Tuesday10/02/2018 05/06/2020 acetaminophen (TYLENOL) 325 mg Tablet Take 650 mg by mouth every 6 hours as needed for Pain. 06/21/2019 ubidecarenone/omega-3/vi t E (CO [id number] E-FISH OIL ORAL) Take 1 tablet by mouth daily. 05/12/2021 diflunisal (DOLOBID) 500 mg Tablet Take 500 mg by mouth 2 times daily. 06/12/2019 aspirin 81 mg Tablet, Delayed Release (E.C.) Take 81 mg by mouth daily. 06/12/2019 documented as of this encounter Plan of Treatment Not on file documented as of this encounter Procedures Procedure Name Priority Date/Time Associated Diagnosis Comments XR FLUORO INJECTION DRAINAGE JOINT LG RIGHT Routine 03/16/2019 1:20 PM EDT Pain in right hip documented in this encounter Results * XR Fluoro Guided Joint Injection Large Right (03/16/2019 1:20 PM EDT) Anatomical Region Laterality Modality Right Radio Fluoroscop y Impressions 03/19/2019 10:29 AM EDT Uneventful right hip joint injection under fluoroscopy. Resident/Fellow: None Attending: There was no attending present for this procedure Procedure performed by Terrie Del Castillo APRN Thank you for letting us participate in the care of this patient. For questions regarding this report, please contact the number below. ? Narrative 03/19/2019 10:29 AM EDT HISTORY: Right [...] electronic medical record and allergies, as per [facility] protocol. The patient was placed supine on [...] were reviewed with patient. Procedure Note Terrie Del Castillo APRN - 03/19/2019 HISTORY: Right hip and buttock [...] relevant electronic medicalrecord and allergies, as per [facility] protocol. The patient was placed supine on [...] for this procedure Procedure performed by Terrie Del Castillo APRN Thank you for letting us participate in the care of this patient. Forquestions regarding this report, please contact the number below. Eric MESSINAG FLUORO ORDERABLE S documented in this encounter Visit Diagnoses Diagnosis Pain in right hip Pain in joint, pelvic region and thigh documented in this encounter Administered Medications Inactive Administered Medications - up to 3 most recent administrations Medication Order MAR Action Action Date Dose Rate Site ROpivacaine (PF) 5 mg/mL (0.5 %) 4 mL with triamcinolone acetonide 40 mg injection Intra-articular, ONCE, 1 dose, On Tue03/16/19 at 1345 Given 03/16/2019 1:30 PM EDT 16- Thigh Anterior (Right) documented in this encounter Care Teams Tub Mender Relationship Specialty Start Date End Date Ritu Bolaños APRN [address] [place] [address] PCP - General 05/07/15 02/03/22 documented as of this encounter
--- OUTSIDE RECORDS SUMMARY | 2024-04-12 15:16 | XMS_ITS | Encounter Summary ---
Author Organization [place] [address] Care Team Providers Care Break And Load Operator Name Role Phone Ritu Bolaños APRN Primary Care Provider +1- [phone] Encounter Details Date Type Department Care Team (Latest Contact Info) Description 02/07/2019 1:00 PM EDT Ancillary Procedure Radiology XRay at the [facility] [address] [place] [phone] Jerome Fontanez MD [address] [place] [id number] S/P cervical spinal fusion; S/P lumbar spinal fusion Social History Tobacco Use Types Packs/Day Years Used Date Smoking Tobacco: Never Assessed Sex and Gender Information Value Date Recorded Sex Assigned at Not on file Gender Identity Female 09/25/2020 7:37 PM EST Sexual Orientation Not on file documented as of this encounter Plan of Treatment Not on file documented as of this encounter Procedures Procedure Name Priority Date/Time Associated Diagnosis Comments XR LUMBAR SPINE 2 OR 3 VIEWS Routine 02/07/2019 12:57 PM EDT S/P lumbar spinal fusion documented in this encounter Results * XR Lumbar Spine 2 Or 3 Views (Generic) (02/07/2019 12:57 PM EDT) Anatomical Region Laterality Modality L-spine N/A Digital Radiogra phy Impressions 02/07/2019 1:13 PM EDT No interval change or evidence of interval complication. Thank you for letting us participate in the care of this patient. For questions regarding this report, please contact the number below. ? Narrative 02/07/2019 1:13 PM EDT EXAMINATION: XR LUMBAR SPINE 2 OR 3 VIEWS (GENERIC) CLINICAL HISTORY: s/p lumbar spinal fusion, ap and lat TECHNIQUE: 2 views of the lumbar spine COMPARISON: Frontal and lateral FINDINGS: Status post L2-L4 transpedicular magali and screw fixation. Unchanged grade 1, L2 on L3 and L3 on L4 anterolisthesis with stable height loss of the L3 and L4 vertebral bodies and a slight levoconvex curvature centered at L4. No periprosthetic fracture. No change in appearance or alignment of the hardware components. Advanced disc degenerative change at L4-L5 and L5-S1. Procedure Note Darren Duncan MD - 02/07/2019 EXAMINATION: XR LUMBAR SPINE 2 OR 3 VIEWS (GENERIC) CLINICAL HISTORY: s/p lumbar spinal fusion, ap and lat TECHNIQUE: 2 views of the lumbar spine COMPARISON: Frontal and lateral FINDINGS: Status post L2-L4 transpedicular magali and screw fixation. Unchanged grade1, L2 on L3 and L3 on L4 anterolisthesis with stable height loss of the L3 andL4 vertebral bodies and a slight levoconvex curvature centered at L4. No periprosthetic fracture. No change in appearance or alignment of thehardware components. Advanced disc degenerative change at L4-L5 and L5-S1. IMPRESSION No interval change or evidence of interval complication. Thank you for letting us participate in the care of this patient. Forquestions regarding this report, please contact the number below. Electronically signed by: MICHELLE Ramirez [facility]([phone]), at 02/07/2019 1:13 PM Jerome Fontanez MD IMG DX ORDERABLES documented in this encounter Visit Diagnoses Diagnosis S/P cervical spinal fusion Arthrodesis status S/P lumbar spinal fusion Arthrodesis status documented in this encounter Care Teams Break And Load Operator Relationship Specialty Start Date End Date Ritu Bolaños APRN [address] [place] [address] PCP - General 05/07/15 02/03/22 documented as of this encounter
--- OUTSIDE RECORDS SUMMARY | 2024-04-12 15:16 | XMS_ITS | Encounter Summary ---
Author Organization [facility] Include [address] [facility] [address] Care Team Providers Care Pedigree Tracer Name Role Phone Ritu Bolaños APRN Primary Care Provider +1- [phone] Reason for Visit * Auth/Cert Specialty Diagnoses / Procedures Referred By Lennox t Referred To Contact Diagnoses Hip OA/DJD Procedures PRO TOTAL HIP ARTHROPLASTY @TOTAL HIP ARTHROPLASTY, ANTERIOR APPROACH (WRVU 20.72) MODIFIER SORTO & NEPHEW - R3 ACETABULAR CUP MODIFIER SORTO & NEPHEW - POLAR STEM CEMENTLESS Referral ID Status Reason Start Date Expiration Date Visits Re quested Visits Authorized [id number] 1 1 Encounter Details Date Type Department Care Team (Latest Contact Info) Description 06/19/2019 6:19 AM EDT - 06/19/2019 8:12 PM EDT Hospital Encounter Post Acute Care Unit at [address] [address] Eric Soto MD [address] [place] [address] Pain in right hip Discharge Disposition: Another HCF/Not Defined Social History Tobacco Use Types Packs/Day Years [...] Sign Reading Time Taken Comments Blood Pressure 106/59 06/19/2019 7:50 PM EDT Pulse 77 06/19/2019 9:16 AM EDT Temperature 36.8 ??C (98.2 ??F) 06/19/2019 4:00 PM ED T Respiratory Rate 19 06/19/2019 7:50 PM EDT Oxygen Saturation 98% 06/19/2019 7:50 PM EDT Inhaled Oxygen Concentration - - [...] as needed fluticasone propionate (FLONASE) 50 mcg/actuation [place], Suspension 2 sprays by Each Nare route [...] for Pain. 06/21/2019 ubidecarenone/omega-3/v it E (CO [id number] E-FISH OIL ORAL) Take 1 tablet by mouth daily. 05/12/2021 documented as of this encounter Progress Notes * Eric Soto MD - 06/19/2019 8:12 PM EDT I am reviewing this patient's progress via EHR, I replaced her right hip yesterday at [facility], unremarkable surgery with average blood loss of [...] or cardiac imaging capabilities here at [facility]. Probable discharge depends on her course next [...] with occasional nausea. Appreciate input from [facility] hospitalist. Case discussed with surgeon and hospitalist who are in agreement that patient should be transferred to [facility] for telemetry and echocardiogram. Dr. Elvis Harris has agreed to accept patient. Mrs. Espinoza is aware of the plan for transfer and is in agreement. We [facility] Will continue to follow [...] asymptomatic, comfortable. Pt currently awaiting transfer to [facility]. Spouse at bedside. Refer to doc flowsheets or details. Pt in recliner, declining most offering of food, has only had saltines and water since surgery. Awaiting transfer to [facility]. Continues to have episodes of sudden hypotension/nausea possibly triggered by pain, movement, po intake. Spouse at [facility]. Report to Fatuma High RN at the [facility] intermediate special care unit via [...] noted at this time, anesthesia Claudio Kinsey PATIENT ACCESS REGISTRAR to bedside for support and gave 5mg [...] - 06/19/2019 11:00 AM EDT Responded to [facility] for patient to find a AAOX3 pt in [facility] with profound hypotension following repeat vagal episode. [...] Soto MD - 06/19/2019 9:22 AM EDT [facility] Operative Note [facility] [address] [id number] Patient Name: Jigna Espinoza : [id number] MR#: [id number] Case Date: 06/19/2019 Surgery Start Time: 811 Surgery Stop Time: 907 Date: 06/19/2019 Surgeon: Eric Soto MD Engine Testing Supervisor: DAQUAN Barrett Plate Setter: Claudio Monteiro CRNA Anesthesia: Spinal and sedation Pre-operative diagnosis: Right hip osteoarthritis, severe Body mass index is 23.17 kg/m??. Post-operative diagnosis: Same Surgical Procedure Performed: Injection right hip with weight-based marcaine 0.25% with epi, 10 mg morphine, ketorolac 30 mg, andExparel (20 mg) into skin, subcutaneous and deep tissues, and joint space. Right total hip arthroplasty, anterior Hueter approach with Halifax table Right hip intraoperative radiologic examination Findings: [...] performed. Patient was positioned supine on the Halifax table, both feet and ankles were padded [...] liner was placed and impacted according to product evangelist's instructions. Any impinging osteophytes were removed. The [...] and laterally. At the same time, the bindery library technical assistant leaned against the thigh to optimize femoral [...] back to the hospital bed from the Halifax table and boots were removed. No abduction pillow was placed. The patient returned to the recovery room in stable condition. The surgical forceps fabricator, DAQUAN Barrett, worked under my direction for the duration of the operativesession. The bindery library technical assistant meticulously prepped the operative site and maintained the best possible exposure of anatomy incident to the procedure for its duration. Implant Information: Implant Name Type Inv. Item Serial No. Shaving Machine Operator Lot No. LRB No. Used Action CUP,HIP,ACETAB,DAVID,R3,3H,50MM ([id number]) (AutoReq) - [id number] IMPLANTS CUP,HIP,ACETAB,DAVID,R3,3H,50MM ([id number]) (AutoReq) SORTO [employer] NEPHEW - SORTO NEPH [id number] Right 1 Implanted LINER,R3,0D,XLPE,ACETB,88G50CV ([id number]) (AutoReq) - [id number] IMPLANTS LINER,R3,0D,XLPE,ACETB,[id number] ([id number]) (AutoReq) SORTO [employer] NEPHEW - SORTO NEPH [id number] Right 1 Implanted POLARSTEM CONE WCOL 1214 SZ3 ([id number]) (AutoReq) - [id number] IMPLANTS POLARSTEM CONE WCOL 1214 SZ3([id number]) (AutoReq) SORTO [employer] NEPHEW - SORTO NEPH [id number] Right 1 Implanted HEAD,FMRL,OXIN,+0MM,12/14,32MM ([id number]) (AutoReq) - [id number] IMPLANTS HEAD,FMRL,OXIN,+0MM,12/14,32MM ([id number]) (AutoReq) SORTO [employer] NEPHEW - SORTO NEPH [id number] Right 1 Implanted TG 2 RG 1 [...] right hip Arthroplasty Acetabular/Prox Fem Prostc Agrft/Algrft ([id number]) 06/19/2019 7:38 AM EDT Primary osteoarthritis of right hip SCAN DOC: TELEMETRY STRIPS 06/19/2019 12:00 AM EDT documented in this encounter Results * Troponin (06/19/2019 5:18 PM EDT) Pathologist [facility] Troponin-T <0.01 0.00 - 0.00 ng/mL [facility] Blood specimen (specimen) 06/19/2019 5:18 PM EDT 06/19/2019 5:18 PM EDT Narrative Resulting Agency Comment Spec In Lab / APD Claudio Monteiro CRNA CHEMISTRY ORDERABLES [facility] [address] [place] [address] * (ABNORMAL) Basic Metabolic Panel (non-fasting) (06/19/2019 [...] of body mass or the acutely ill. [email or web address] eGFR 99 >=60 mL/min/1. 73 m?? LABORATORY Comment: The eGFR was calculated using the CKD-EPI equation. As with all creatinine based estimates of kidney function, eGFR values calculated with the CKD-EPI equation are not accurate in patients with acute kidney failure, extremes of body mass or the acutely ill. [email or web address] Blood specimen (specimen) 06/19/2019 3:13 PM EDT 06/19/2019 3:13 PM EDT Narrative Resulting Agency Comment Spec In Lab / APD Claudio Monteiro CRNA CHEMISTRY ORDERABLES LABORATORY [address] [place] [address] * Magnesium (06/19/2019 3:13 PM EDT) Magnesium 0.80 0.69 - 1.07 mmol/L [facility] Blood specimen (specimen) 06/19/2019 3:13 PM EDT 06/19/2019 3:13 PM EDT Narrative Resulting Agency Comment Spec In Lab / APD Claudio Foster [facility] CHEMISTRY ORDERABLES LABORATORY [address] [place] [address] * (ABNORMAL) Differential, Automated (06/19/2019 11:22 AM EDT) Neutrophils % 88.4 % [facility] Neutr Abs (ANC) 8.28(H) 1.70 - 6.10 x10(3)/mc L [facility] Lymphocytes % 7.8 % [facility] Lymphocytes Abs 0.7(L) 0.9 - 3.2 [...] Immature Gran % 0.40 % [facility] Comment: Immature granulocytes(IG's)percentage and absolute count will include metamyelocytes, myelocytes, and promyelocytes. Blood smears from CBCs yielding IG's will be scanned manually for concordance. If this scan disagrees with the automated IG or if promyelocytes are noted, a manual differential will be performed. Estefany Gran Abs 0.04 0.00 - 0.04 x10(3)/mc L [facility] Blood specimen (specimen) 06/19/2019 11:22 AM EDT 06/19/2019 11:22 AM EDT Narrative Resulting Agency Comment Spec In Lab / APD Kevin Hogan MD HEMATOLOGY ORDERABLE S Performing Organization Address [facility] Co de Phone Number [facility] [address] [place] [address] * (ABNORMAL) Hemogram (06/19/2019 11:22 AM EDT) WBC 9.7(H) 4.0 - 9.5 x10(3)/mcL [facility] RBC 3.30(L) 4.00 - 5.21 x10(6)/mcL [facility] Hemoglobin 10.4(L) 11.7 - 15.5 gm/dL [facility] Hematocrit 30.1(L) 35.7 - 45.8 % [facility] MCV 91.2 82.6 - 94.4 fL [facility] MCH 31.5 27.1 - 32.0 pg [facility] MCHC 34.6 31.7 - 35.0 gm/dL [facility] Platelets 227 145 - 357 x10(3)/mcL [facility] RDWSD 44.1 37.0 - 46.0 fL [facility] RDWCV 13.0 11.5 - 14.1 % [facility] MPV 10.2 7.6 - 12.9 fL [facility] Blood specimen (specimen) 06/19/2019 11:22 AM EDT 06/19/2019 11:22 AM EDT Narrative Resulting Agency Comment Spec In Lab / APD Kevin Hogan MD HEMATOLOGY ORDERABLE S Performing Organization Address [facility] Co de Phone Number [facility] [address] [place] [address] * Troponin (06/19/2019 10:40 AM EDT) Troponin-T <0.01 0.00 - 0.00 ng/mL [facility] Blood specimen (specimen) 06/19/2019 10:40 AM EDT 06/19/2019 10:56 AM EDT Narrative Resulting Agency Comment Spec In Lab / APD Claudio Monteiro CRNA CHEMISTRY ORDERABLES Performing Organization Address [facility] Co de Phone Number [facility] [address] [place] [address] * EKG 12 Lead (06/19/2019 10:32 AM EDT) Ventricular rate 67 BPM MUSE SYSTEM Atrial Rate 67 BPM MUSE SYSTEM P-R Interval 170 ms MUSE SYSTEM QRS Duration 80 ms MUSE SYSTEM Q-T Interval 426 ms MUSE SYSTEM QTC Calculated (Bezet) 450 ms MUSE SYSTEM Calculated P [place] 74 degrees MUSE SYSTEM Calculated R [place] -67 degrees MUSE SYSTEM Calculated T [place] 48 degrees MUSE SYSTEM INTERPRETATION Normal sinus [...] EDT 06/19/2019 4:03 PM EDT Claudio Monteiro PATIENT ACCESS REGISTRAR ECG ORDERABLES Performing Organization Address [facility] de Phone Number MUSE SYSTEM * XR Fluoro No Rad <1Hr - OR Use (06/19/2019 9:44 AM EDT) Narrative RAD - 06/19/2019 9:45 AM EDT This exam is auto-finalizing. No interpretation was done. Eric Soto MD IMG FLUORO ORDERABLE S Performing Organization Address [facility] Co de Phone Number [place], [place] * EKG 12 Lead (06/19/2019 9:42 AM EDT) Ventricular rate 70 BPM MUSE SYSTEM Atrial Rate 70 BPM MUSE SYSTEM P-R Interval 170 ms MUSE SYSTEM QRS Duration 80 ms MUSE SYSTEM Q-T Interval 432 ms MUSE SYSTEM QTC Calculated (Bezet) 466 ms MUSE SYSTEM Calculated P [place] 80 degrees MUSE SYSTEM Calculated R [place] -68 degrees MUSE SYSTEM Calculated T [place] 40 degrees MUSE SYSTEM INTERPRETATION Sinus rhythm [...] thigh Status post total hip replacement, right documented in this encounter Admitting Diagnoses Diagnosis Status post total hip replacement, right documented in this encounter Administered Medications Inactive Administered Medications - up to 3 most recent administrations Medication Order MAR Action Action Date Dose Rate Site famotidine (PEPCID) injection 20 mg 20 mg, Intravenous, ONCE, 1 dose, On Tue06/19/19 at 0700, Day of Surgery (Day of Procedure), Routine Given 06/19/2019 6:52 AM EDT 20 mg fentaNYL 50 mcg/mL multi-dose injection 12.5-25 mcg, Intravenous, EVERY 5 MIN PRN, Starting on Tue06/19/19 at 0924, Until Tue06/19/19 at 2012, Pain, Give 12.5 mcg every 5 minutes [...] for breakthrough pain., PACU Recovery, Routine Given 06/19/2019 7:26 PM EDT 25 mcg Given 06/19/2019 6:55 PM EDT 12.5 mcg Given 06/19/2019 6:07 PM EDT 12.5 mcg lactated ringers infusion 1,000 mL, at 50 mL/hr, Intravenous, CONTINUOUS, Starting on Tue06/19/19 at 0700, Until Tue06/19/19 at 2011, Day of Surgery (Day of Procedure) New Bag 06/19/2019 8:31 AM EDT New Bag 06/19/2019 6:50 AM EDT 1,000 mLs 50 mL/hr ondansetron (ZOFRAN) injection 4 mg 4 mg, Intravenous, EVERY 30 MIN PRN, Starting on Tue06/19/19 at 0924, Until Tue06/19/19 at 2011, Nausea, May repeat 4 mg once in 30 minutes. If multiple antiemetics ordered, use ondansetron first and if ineffective use prochlorperazine second and if ineffective use promethazine, PACU Recovery, Routine Given 06/19/2019 9:36 AM EDT 4 mg sodium chloride 0.9% infusion 200 mL/hr, Intravenous, CONTINUOUS, Starting on Tue06/19/19 at 1245, Until Tue06/19/19 at 2012, PACU Recovery New Bag 06/19/2019 11:10 AM EDT 1,000 mL/hr 1000 mL/hr documented in this encounter Active and [...] 2012, Day of Surgery (Day of Procedure) 0650 [...] Until Tue06/19/19 at 2009, Intra-Operative (Intra-Procedure), Routine 814 (Given - Provid er: Eric Soto MD - Comment: Combination: 20ml Exparel 50ml - 0.25% Bupivacaine with epi 1:200,000 10mcg - Clonidine 30mg Ketorolac 10mg - Morphine) cloNIDine injection (CANCELED) ONCE PRN, Starting on Tue06/19/19 at 0815, Until Tue06/19/19 at 2009, Intra-Operative (Intra-Procedure), Routine 814 (Given - Provid er: Eric Soto MD [...] Until Tue06/19/19 at 2009, Intra-Operative (Intra-Procedure), Routine 814 (Given - Provid er: Eric Soto MD [...] Prophylaxis documented in this encounter Care Teams Pedigree Tracer Relationship Specialty Start Date End Date Ritu Bolaños APRN [address] [place] [phone] PCP - General 05/07/15 02/03/22 documented as of this encounter
--- OUTSIDE RECORDS SUMMARY | 2024-04-12 15:17 | XMS_ITS | Encounter Summary ---
Author Organization [facility] Address [facility] [place] [address] Care Team Providers Care Supervisor Boilermaking Shop Name Role Phone Ritu Bolaños APRN Primary Care Provider +1- [phone] Encounter Details Date Type Department Care Team (Late st Contact Info) Description 02/10/2017 Abstract [facility] Conversion Results [address] [place] [address] Apd Conversion, Flowsheet Provider, Social History Tobacco Use Types Packs/Day Years Used Date Smoking Tobacco: Never Assessed Sex and Gender Information Value Date Recorded Sex Assigned at Not on file Gender Identity Female 09/25/2020 7:37 PM EST Sexual Orientation Not on file documented as of this encounter Last Filed Vital Signs Vital Sign Reading Time Taken Comments Blood Pressure 118/72 02/10/2017 10:50 AM EDT Sourced from APD Conversion Pulse - - Temperature - - Respiratory Rate - - Oxygen Saturation - - Inhaled Oxygen Concentration - - Weight 65.9 kg (145 lb 4.5 oz) 02/10/2017 10:50 AM EDT Sourced from APD Conversion Height 160 cm (5' 2.99) 02/10/2017 10: 50 AM EDT Sourced from APD Conversion Body Mass Index 25.74 02/10/2017 10:50 AM EDT documented in this encounter Plan of Treatment Not on file documented as of this encounter Visit Diagnoses Not on filedocumented in this encounter Care Teams Supervisor Boilermaking Shop Relationship Specialty Start Date End Date Ritu Bolaños APRN [address] [place] [phone] PCP - General 05/07/15 02/03/22 documented as of this encounter
--- OUTSIDE RECORDS SUMMARY | 2024-04-12 15:17 | XMS_ITS | Encounter Summary ---
[place] [address] Care Team Providers Care Lollypop Machine Operator Name Role Phone Ritu Bolaños APRN Primary Care Provider +1- [phone] Encounter Details Date Type Department Care Team (Latest Contact Info) Description 10/28/2017 12:24 PM EST - 10/28/2017 11:59 PM EST Hospital En[place] [phone] Ritu Bolaños APRN [address] [place] [address] Visit for screening mammogram Discharge Disposition: Home [...] Associated Diagnosis Comments MAMMO SCREENING CAD AND WALDEMAR BILATERAL Routine 10/28/2017 12:53 PM EST Visit for screening mammogram documented in this encounter Results * Mammo Screen CAD and Waldemar Bilat (Generic) (10/28/2017 12:53 PM EST) Anatomical Region Laterality Modality Breast Bilateral Mammography Narrative 10/30/2017 1:01 PM EST BILATERAL MAMMOGRAPHY REASON FOR EXAM: Screening TECHNIQUE: [...] CONCLUSION: No mammographic evidence of malignancy. RECOMMENDATION: The [employer] and The Society of Breast Imaging recommend annual screening beginning at age 40 for the general female population. Screening should continue as long as a woman is in good health and is expected to live 10 more years or longer. All women should be familiar with the known benefits, limitations, and potential harms linked to breast cancer screening. They should also know how their breasts normally look and feel and report any breast changes to a health care provider right away. Some women - because of their family history, a genetic tendency, or certain other factors - should be screened with MRIs along with mammograms. (The number of women who fall into this category is very small.) The patient and health care provider should discuss the patient history and decide if earlier screening and breast MRI are appropriate. A result letter has been sent to this patient by [facility]. BIRADS CATEGORY 1: NEGATIVE Ritu Bolaños APRN IMG MAMMO ORDERABL ES documented in this encounter Visit Diagnoses Diagnosis Visit for screening mammogram Other screening mammogram documented in this encounter Care Teams Lollypop Machine Operator Relationship Specialty Start Date End Date Ritu Bolaños APRN [address] [place] [address] PCP - General 05/07/15 02/03/22 documented as of this encounter
--- OUTSIDE RECORDS SUMMARY | 2024-04-12 15:17 | XMS_ITS | Encounter Summary ---
Author Organization [facility] [address] Care Team Providers Care Auto Technician Mechanic Name Role Phone Ritu Bolaños APRN Primary Care Provider +1- [phone] Encounter Details Date Type Department Care Team (Late st Contact Info) Description 01/17/2018 Interpretation Only [facility] [address] [place] [phone] Jerome Fontanez MD [address] [place] [id number] Social History Tobacco Use Types Packs/Day Years [...] Priority Date/Time Associated Diagnosis Comments XR O-ARM MORE THAN ONE HOUR Routine 01/17/2018 7:30 AM EDT documented in this encounter Results * XR O-Arm More Than One Hour (01/17/2018 7:30 AM EDT) Anatomical Region Laterality Modality Other 01/17/2018 7:30 AM EDT Impressions 01/17/2018 11:32 AM EDT C-arm fluoroscopy used for intraoperative guidance. Fluoroscopy time: 5.97 seconds Dose (Rad): 0.96 Narrative 01/17/2018 11:32 AM EDT EXAMINATION: O-ARM ( =>1HR ) CLINICAL HISTORY: L3-4 DECOMPRESSION FUSION CORTICAL SCREW - OR ROOM 2, ?? Procedure Note Sana Todd MD - 01/17/2018 EXAMINATION: O-ARM ( =>1HR ) CLINICAL HISTORY: L3-4 DECOMPRESSION FUSION CORTICAL SCREW - OR ROOM 2, IMPRESSION C-arm fluoroscopy used for intraoperative guidance. Fluoroscopy time: 5.97 seconds Dose (Rad): 0.96 Jerome Fontanez MD PACS IMAGES documented in this encounter Visit Diagnoses Not on filedocumented in this encounter Care Teams Auto Technician Mechanic Relationship Specialty Start Date End Date Ritu Bolaños APRN [address] [place] [address] PCP - General 05/07/15 02/03/22 documented as of this encounter
--- OUTSIDE RECORDS SUMMARY | 2024-04-12 15:17 | XMS_ITS | Encounter Summary ---
Author Organization [facility] [place] [address] Care Team Providers Care Back End Web Developer Name Role Phone Beto Perez MD Primary Care Provider [phone] Encounter Details Date Type Department Care Team (Late st Contact Info) Description 05/01/2015 Orders Only Radiology Replaced By [facility] [place] [phone] Ritu Bolaños APRN [address] [place] [address] Social History Tobacco Use Types [...] Procedure Name Priority Date/Time Associated Diagnosis Comments REQUEST FOR 2ND READ MAMMO Routine 05/01/2015 9:25 AM EDT documented in this encounter Results * Request for 2nd read Mammo (05/01/2015 9:25 AM EDT) Anatomical Region Laterality Modality Other 05/01/2015 9:25 AM EDT Narrative 05/01/2015 11:37 AM EDT INTERPRETATION OF OUTSIDE MAMMOGRAMS AND/OR ULTRASOUND I have been asked to consult on this patient by Dr. RITU BOLAÑOS NP because he/she believes a review of this study may change or alter the care of this patient. STUDIES FROM: [facility] DATES: Left diagnostic mammogram 04/28/2015; bilateral mammogram dated 04/25/2015, 04/24/2014, 04/23/2013, 04/20/2012. CLINICAL HISTORY: PLEASE REVIEW O/S BREAST IMAGING FROM [facility] 04/28/2015. LEFT BREAST CALCS. CAT #4. QUESTION MORE IMAGING? QUESTION BX? BREAST DENSITY: Scattered fibroglandular density FINDINGS MAMMOGRAPHY: LEFT breast: BI-RADS ACR category 0 incomplete left mammogram for a 2 mm group of micro-calcifications in the inferior retroareolar left breast, at 6:00, 2 cm from the nipple. The remainder the left breast demonstrates unremarkable fibroglandular pattern, stable compared to prior studies. RIGHT breast: BI-RADS ACR category 1 negative right mammogram. DIAGNOSTIC SUMMARY: LEFT BREAST LESION 1 BIRADS 0. Incomplete: Need additional imaging evaluation FINDING: Group of microcalcifications SIZE: 2 ??mm LOCATION: Inferior retroareolar at 6 O'Clock 2 ??cm from the nipple RECOMMENDATION: Additional mammographic images to further characterize these calcifications, including Left ML magnification view. RIGHT BREAST: BI-RADS ACR Category 1 Negative RIGHT mammogram. The next right mammogram is recommended with the frequency dependent on the patient's age and breast cancer risk factors. Procedure Note Allison Liang MD - 05/01/2015 INTERPRETATION OF OUTSIDE MAMMOGRAMS AND/OR ULTRASOUND I have been asked to consult on this patient by Dr. RITU BOLAÑOS NPbecause he/she believes a review of this study may change or alter the care ofthis patient. STUDIES FROM: [facility] DATES: Left diagnostic mammogram 04/28/2015; bilateral mammogram dated04/25/2015, 04/24/2014, 04/23/2013, 04/20/2012. CLINICAL HISTORY: PLEASE REVIEW O/S BREAST IMAGING FROM [facility] 04/28/2015. LEFT BREAST CALCS. CAT #4. QUESTION MORE IMAGING? QUESTIONBX? BREAST DENSITY: Scattered fibroglandular density FINDINGS MAMMOGRAPHY: LEFT breast: BI-RADS ACR category 0 incomplete left mammogram for a 2 mmgroup of micro-calcifications in the inferior retroareolar left breast, at 6:00,2 cm from the nipple. The remainder the left breast demonstrates unremarkable fibroglandular pattern, stable compared to prior studies. RIGHT breast: BI-RADS ACR category 1 negative right mammogram. DIAGNOSTIC SUMMARY: LEFT BREAST LESION 1 BIRADS 0. Incomplete: Need additional imagingevaluation FINDING: Group of microcalcifications SIZE: 2 mm LOCATION: Inferior retroareolar at 6 O'Clock 2 cm from the nipple RECOMMENDATION: Additional mammographic images to further characterize thesecalcifications, including Left ML magnification view. RIGHT BREAST: BI-RADS ACR Category 1 Negative RIGHT mammogram. The nextright mammogram is recommended with the frequency dependent on the patient's ageand breast cancer risk factors. Ritu Bolaños APRN [employer] OUTSIDE INTERP RETATION ORDERABLES documented in this encounter Visit Diagnoses Not on filedocumented in this encounter Care Teams Back End Web Developer Relationship Specialty Start Date End Date Beto Perez MD [address] [place] [phone] PCP - General 08/11/10 05/06/15 documented as of this encounter
--- OUTSIDE RECORDS SUMMARY | 2024-04-12 15:17 | XMS_ITS | Encounter Summary ---
Author Organization [facility] Address [facility] [place] [address] Care Team Providers Care Groundwater Monitoring Technician Name Role Phone Ritu Bolaños APRN Primary Care Provider [phone] Encounter Details Date Type Department Care Team (Late st Contact Info) Description 12/07/2017 Abstract [facility] Conversion Results [address] [place] [address] Apd Conversion, Flowsheet Provider, Social History Tobacco Use Types Packs/Day Years Used Date Smoking Tobacco: Never Assessed Sex and Gender Information Value Date Recorded Sex Assigned at Not on file Gender Identity Female 09/25/2020 7:37 PM EST Sexual Orientation Not on file documented as of this encounter Last Filed Vital Signs Vital Sign Reading Time Taken Comments Blood Pressure 143/83 12/07/2017 2:05 PM EDT Sourced from APD Conversion Pulse - - Temperature - - Respiratory Rate - - Oxygen Saturation - - Inhaled Oxygen Concentration - - Weight 65.8 kg (145 lb 1 oz) 12/07/2017 2:05 PM EDT Sourced from [facility] Conversion Height 160 cm (5' 2.99) 12/07/2017 2:0 5 PM EDT Sourced from [facility] Conversion Body Mass Index 25.7 12/07/2017 2:05 PM EDT documented in this encounter Plan of Treatment Not on file documented as of this encounter Visit Diagnoses Not on filedocumented in this encounter Care Teams Groundwater Monitoring Technician Relationship Specialty Start Date End Date Ritu Bolaños APRN [address] [place] [address] PCP - General 05/07/15 02/03/22 documented as of this encounter
--- OUTSIDE RECORDS SUMMARY | 2024-04-12 15:17 | XMS_ITS | Encounter Summary ---
Author Organization [facility] [place] [address] Care Team Providers Care Director Labor Standards Name Role Phone Ritu Bolaños RAEANN Primary Care Provider [phone] Encounter Details Date Type Department Care Team (Late st Contact Info) Description 02/24/2018 Interpretation Only [facility] [address] [place] [phone] Janee Stewart PA [address] [place] [address] Social History Tobacco Use Types Packs/Day Years [...] LUMBAR SPINE 2 OR 3 VIEWS Routine 02/24/2018 12:34 PM EDT documented in this encounter Results * XR Lumbar Spine 2 Or 3 Views (Generic) (02/24/2018 12:34 PM EDT) Anatomical Region Laterality Modality L-spine N/A Radiographic Elva ging 02/24/2018 12:3 4 PM EDT Impressions 02/24/2018 12:57 PM EDT Interval instrumented fusion of L3 on L4 vertebral levels without radiographic evidence of complications. Unchanged alignment. Narrative 02/24/2018 12:57 PM EDT EXAMINATION: SPINE LUMBAR (2-3VWS) -ROUTN CLINICAL HISTORY: ASSESS HEALING - S/P FUSION, L5,S1, ?? TECHNIQUE: 2 views of the lumbar spine COMPARISON: November 28, 2017 FINDINGS: Interval instrumented fusion of L3 and L4 vertebral bodies. Grade 1 anterolisthesis of L3 on L4 and intervertebral disc space narrowing are unchanged. Intervertebral disc space narrowing is again seen at L4-L5 and L5-S1 levels. No evidence of hardware complications. Degenerative spondylosis changes Procedure Note Jose Tavares MD - 02/24/2018 EXAMINATION: SPINE LUMBAR (2-3VWS) -ROUTN CLINICAL HISTORY: ASSESS HEALING - S/P FUSION, L5,S1, TECHNIQUE: 2 views of the lumbar spine COMPARISON: November 28, 2017 FINDINGS: Interval instrumented fusion of L3 and L4 vertebral bodies. Grade 1 anterolisthesis of L3 on L4 and intervertebral disc space narrowing are unchanged. Intervertebral disc space narrowing is again seen at L4-L5 andL5-S1 levels. No evidence of hardware complications. Degenerative spondylosischanges IMPRESSION Interval instrumented fusion of L3 on L4 vertebral levels withoutradiographic evidence of complications. Unchanged alignment. 12:52 PM Janee BUTT IMG DX ORDERABLES documented in this encounter Visit Diagnoses Not on filedocumented in this encounter Care Teams Director Labor Standards Relationship Specialty Start Date End Date Ritu Bolaños APRN [address] [place] [address] PCP - General 05/07/15 02/03/22 documented as of this encounter
--- OUTSIDE RECORDS SUMMARY | 2024-04-12 15:17 | XMS_ITS | Encounter Summary ---
Author Organization [facility] Address [facility] [place] [address] Care Team Providers Care Director Of Services Name Role Phone Beto Perez MD Primary Care Provider [phone] Encounter Details Date Type Department Care Team (Late st Contact Info) Description 04/24/2014 Orders Only XRay at [address] [place] [address] Regla Mccormick MD [facility] [place] [address] Social History Tobacco Use Types Packs/Day Years [...] Associated Diagnosis Comments FILM LIBRARY STORAGE ONLY MAMMO Routine 04/24/2014 3:20 PM EDT documented in this encounter Results * Film Library- Storage only Mammo (04/24/2014 3:20 PM EDT) Anatomical Region Laterality Modality Other 04/24/2014 3:20 PM EDT Narrative 04/29/2015 3:36 PM EDT This is a Non-reportable exam Procedure Note MANUEL, UNSIGNED REPORT - 04/29/2015 This is a Non-reportable exam Regla Mccormick MD IM FILM LIBRARY O RDERABLES documented in this encounter Visit Diagnoses Not on filedocumented in this encounter Care Teams Director Of Services Relationship Specialty Start Date End Date Beto Perez MD [address] [place] [phone] PCP - General 08/11/10 05/06/15 documented as of this encounter
--- OUTSIDE RECORDS SUMMARY | 2024-04-12 15:17 | XMS_ITS | Encounter Summary ---
Author Organization [facility] [place] [address] Care Team Providers Care Printed Circuit Board Assembler Name Role Phone Ritu Bolaños RAEANN Primary Care Provider [phone] Encounter Details Date Type Department Care Team (Latest Contact Info) Description 05/07/2015 7:45 AM EDT - 05/07/2015 11:59 PM EDT Hospital En[place] [phone] CLINIC, Beto Horton MD [address] [place] [phone] Abnormal mammogram, unspecified Discharge Disposition: Home Social History Tobacco Use [...] Name Priority Date/Time Associated Diagnosis Comments MAMMO CALL BACK DIAGNOSTIC EXTRA VIEW UNILATERAL Routine 05/07/2015 8:38 AM EDT Abnormal mammogram, unspecified documented in this encounter Results * Mammo Call Back Diagnostic Extra View Unilateral (05/07/2015 8:38 AM EDT) Anatomical Region Laterality Modality Breast N/A Mammography 05/07/2015 8:38 AM EDT Impressions 05/07/2015 8:56 AM EDT IMPRESSION: Left breast: BI-RADS 3, probably benign, short interval follow-up is recommended. Subareolar left breast microcalcifications, favor dystrophic calcifications, recommend spot magnification views in 6 months to again document stability. Note: These findings and recommendations were discussed with the patient who concurs. Narrative 05/07/2015 8:56 AM EDT EXAMINATION: CALL BACK DX EXTRA VIEW UNILAT/LEFT CLINICAL HISTORY: Abnormal Screening. 70-year-old female presents from outside imaging for additional diagnostic views of the left breast. TECHNIQUE: Spot true lateral magnification view of the left breast, digital mammography, direct image capture. COMPARISON: 04/28/2015, 04/25/2015, 04/24/2014, dating back to 2011. FINDINGS: Density, scattered densities. Within the subareolar left breast again noted, calcifications. These appear punctate, somewhat layering, and similar to adjacent dystrophic calcifications. No suspicious findings. Similar dating back to . Procedure Note Jason Hancock MD - 05/07/2015 EXAMINATION: CALL BACK DX EXTRA VIEW UNILAT/LEFT CLINICAL HISTORY: Abnormal Screening. 70[facility] breast. TECHNIQUE: Spot true lateral magnification view of the left breast,digital mammography, direct image capture. COMPARISON: 04/28/2015, 04/25/2015, 04/24/2014, dating back to 2011. FINDINGS: Density, scattered densities. Within the subareolar left breast againnoted, calcifications. These appear punctate, somewhat layering, and similar to adjacent dystrophic calcifications. No suspicious findings. Similar datingback to . IMPRESSION IMPRESSION: Left breast: BI-RADS 3, probably benign, short interval follow-up is recommended. Subareolar left breast microcalcifications, favor dystrophiccalcifications, recommend spot magnification views in 6 months to again documentstability. Note: These findings and recommendations were discussed with the patientwho concurs. Allison Liang MD IMG MAMMO ORD ERABLES documented in this encounter Visit Diagnoses Diagnosis Abnormal mammogram, unspecified documented in this encounter Care Teams Printed Circuit Board Assembler Relationship Specialty Start Date End Date Ritu Bolaños APRN [address] [place] [phone] PCP - General 05/07/15 02/03/22 documented as of this encounter
--- OUTSIDE RECORDS SUMMARY | 2024-04-12 15:17 | XMS_ITS | Encounter Summary ---
Author Organization [facility] Address [address] [place] [address] Care Team Providers Care Reserves Clerk Name Role Phone Unknown, Provider Primary Care Provider Encounter Details Date Type Department Care Team (Late st Contact Info) Description 02/13/2019 Results Only [facility] [phone] Glory Brothers MD [address] [place] [address] Social History Tobacco Use Types Packs/Day Years Used Date Smoking Tobacco: Never Assessed Sex and Gender Information Value Date Recorded Sex Assigned at Not on file Gender Identity Not on file Sexual Orientation Not on file documented as of this encounter Plan of Treatment Not on file documented as of this encounter Procedures Procedure Name Priority Date/Time Associated Diagnosis Comments SURGICAL PATHOLOGY Routine 02/13/2019 8:55 EDT documented in this encounter Results * SURGICAL PATHOLOGY (02/13/2019 8:55 EDT) Pathology Report: SURGICAL PATHOLOGY REPORT Reports generated via electronic interface contain original data; however they are lacking the format of the original report. Caution should be taken when reading/interpreting unformatted reports. Name: ? JINGA AMEZCUA ? Accession #: ? [id number] ? : ? 1945 (Age: 73) ??F ? Collect Date: ? 02/13/2019 ? Location: ? [facility] ? Receive Date: ? 02/14/2019 ? Provider: GLORY BROTHERS MD Copy to: ? Final Pathologic Diagnosis: A. STOMACH, SITE NOT OTHERWISE SPECIFIED, ULCER, BIOPSY: - ??Active chronic gastritis and superimposed features of erosive reactive gastropathy. See comment. - ??Focal ulcer bed with granulation. ?? - ??Negative for Helicobacter pylori by immunostaining. - ??Deeper sections examined. B. GASTROESOPHAGEAL JUNCTION, BIOPSY: - ??Cardia-oxyntic mucosa with reactive changes. - ??Negative for intestinal metaplasia or dysplasia. - ??No squamous mucosa is present. Comment: Part A: Focally, there are a few crushed cells favored inflammatory cells. These cells are no longer seen on deeper levels. Pharmaceutical Salesperson sections reviewed at the intradepartmental GI consensus conference. Document reviewed and electronically signed by: HAKAN ALCAZAR MD Report ??Date: 02/19/2019 12:20 By the signature above, the attending physician certifies that he/she has personally conducted a gross and/or microscopic examination of the described specimens and rendered or confirmed the above diagnosis. Specimen(s) Received: A. ??Gastric ulcer bx B. ??GE junction bx Clinical History: Anemia, abd pain, constipation; gastric ulcer, melanosis coli, external hemorrhoids Gross Description: A. ?Received in formalin labelled with proper patient identification (initials C, P) and gastric ulcer BX are two bailey tissues (0.3 x 0.1 x 0.1 cm and 0.3 x 0.2 x 0.1 cm). Entirely submitted in A1. B. ?Received in formalin labelled with proper patient identification (initials C, P) and GE junction BX is a single bailey-white tissue fragment (0.3 x 0.1 x 0.1 cm). Submitted intact in B1. Rachel Hassan 02/14/2019 10:03 AM End of Report [facility] 02/13/2019 8:55 EDT 02/14/2019 8:55 EDT Glory Brothers MD PATHOLOGY ORDER GREGORIO [facility] [address] [place] [address] documented in this encounter Visit Diagnoses Not on filedocumented in this encounter Care Teams Reserves Clerk Relationship Specialty Start Date End Date Unknown, Provider, PCP - General 08/02/15 documented as of this encounter
--- OUTSIDE RECORDS SUMMARY | 2024-04-12 15:17 | XMS_ITS | Encounter Summary ---
Author Organization [facility] Address [facility] [place] [address] Care Team Providers Care Recreation Officer Name Role Phone Ritu Bolaños APRN Primary Care Provider [phone] Encounter Details Date Type Department Care Team (Latest Contact Info) Description 01/19/2016 2:39 PM EDT - 01/19/2016 11:59 PM EDT Hospital En[place] [address] Jason Hancock MD [facility] [place] [address] Abnormal mammogram Discharge Disposition: Home Social History Tobacco [...] Name Priority Date/Time Associated Diagnosis Comments MAMMO DIRECT DIGITAL WITH CAD LEFT Routine 01/19/2016 3:01 PM EDT Abnormal mammogram documented in this encounter Results * Mammo Direct Digital Left (01/19/2016 3:01 PM EDT) Anatomical Region Laterality Modality Breast Left Mammography Impressions 01/19/2016 3:58 PM EDT IMPRESSION: No interval change in benign-appearing calcifications in the left retroareolar region. Six-month follow-up bilateral diagnostic mammogram advised to continue to confirm this benign impression. BI-RADS Category 3: Probably Benign Finding-short interval follow-up or continued surveillance mammography Narrative 01/19/2016 3:58 PM EDT EXAMINATION: MAMMO DIRECT DIGITAL WITH CAD LEFT CLINICAL HISTORY: f/u cat 3 mammogram TECHNIQUE: Spot compression magnification CC and spot compression magnification true lateral views were obtained of the left breast. COMPARISON: 05/07/2015 FINDINGS: Mammographically there is no change in appearance of amorphous calcifications subtending a rounded structure favoring a benign sclerosing papilloma. Jason Hancock MD IMG MAMMO ORDERABLES documented in this encounter Visit Diagnoses Diagnosis Abnormal mammogram Abnormal mammogram, unspecified documented in this encounter Care Teams Recreation Officer Relationship Specialty Start Date End Date Ritu Bolaños APRN [address] [place] [address] PCP - General 05/07/15 02/03/22 documented as of this encounter
--- OUTSIDE RECORDS SUMMARY | 2024-04-12 15:17 | XMS_ITS | Encounter Summary ---
Author Organization [facility] Address [address] [place] [address] Care Team Providers Care Marketing Database Analyst Name Role Phone Unknown, Provider Primary Care Provider [phone] Encounter Details Date Type Department Care Team (Late st Contact Info) Description 08/20/2020 Lab Requisition [facility] Pathology & Laboratory Medicine - [address] [address] Outr Resulting Lab, Provider Social History Tobacco Use Types Packs/Day Years Used Date Smoking Tobacco: Never Assessed Interpersonal Safety Answer Date Record ed Physically Hurt Never 04/20/2020 Verbally Threaten Not on file 04/20/2020 Sex and Gender Information Value Date Recorded Sex Assigned at Not on file Gender Identity Not on file Sexual Orientation Not on file documented as of this encounter Plan of Treatment Not on file documented as of this encounter Procedures Procedure Name Priority Date/Time Associated Diagnosis Comments IGE Routine 08/20/2020 12:08 EST documented in this encounter Results * (ABNORMAL) IGE (08/20/2020 12:08 EST) IgE 194(H) <158 IU/mL 08/22/2020 10:05 EST [facility] Blood VENOUS BLOOD / Unknown 08/20/2020 12:08 EST 08/20/2020 22:22 EST Provider Outr Resulting Lab CHEMISTRY & BLOOD GAS ORDERABLES [facility] [address] [place] [address] documented in this encounter Visit Diagnoses Not on filedocumented in this encounter Care Teams Marketing Database Analyst Relationship Specialty Start Date End Date Unknown, Provider, PCP - General 08/02/15 documented as of this encounter
--- OUTSIDE RECORDS SUMMARY | 2024-04-12 15:17 | XMS_ITS | Encounter Summary ---
Author Organization [facility] Address [facility] [place] [address] Care Team Providers Care Order To Delivery Supervisor Name Role Phone Ritu Bolaños RAEANN Primary Care Provider [phone] Encounter Details Date Type Department Care Team (Late st Contact Info) Description 12/16/2016 Interpretation Only Radiology [facility] [place] [address] Unknown None Social History Tobacco Use Types [...] Comments XR FLUORO NO RAD <1HR - RADIOLOGY USE Routine 12/16/2016 6:34 AM EDT documented in this encounter Results * XR Fluoro <1Hr - Radiology Use (12/16/2016 6:34 AM EDT) Anatomical Region Laterality Modality N/A Radiographic Elva ging 12/16/2016 6:34 AM EDT Narrative 12/16/2016 6:34 AM EDT [facility] Historical Result Principal Customer Leader: ??BURAK ??PABLO INTRAOPERATIVE FLUOROSCOPY: A total of 10.4 seconds (407.10 mrad) of intraoperative fluoroscopy was used by Dr Fontanez. ?? There was no Radiologist present during the exam. Single spot image documents the procedure. ?? Spot image documents radiopaque instrument and retractors at the L3-4 level. Burak Shah MD [facility]/ [id number] Procedure Note Unknown - 03/19/2019 APD Historical Result Principal Customer Leader: BURAK SHAH INTRAOPERATIVE FLUOROSCOPY: A total of 10.4 seconds (407.10 mrad) of intraoperative fluoroscopy wasused by Dr Fontanez. There was no Radiologist present during the exam. Single spot imagedocuments the procedure. Spot image documents radiopaque instrument and retractors at the L3-4 level. Burak Shah MD [facility]/ [id number] Unknown IMG FLUORO ORDERABLE S documented in this encounter Visit Diagnoses Not on filedocumented in this encounter Care Teams Order To Delivery Supervisor Relationship Specialty Start Date End Date Ritu Bolaños APRN [address] [place] [phone] PCP - General 05/07/15 02/03/22 documented as of this encounter
--- OUTSIDE RECORDS SUMMARY | 2024-04-12 15:17 | XMS_ITS | Encounter Summary ---
Author Organization [facility] Address [facility] [place] [address] Care Team Providers Care Site Leader Name Role Phone Ritu Bolaños APRN Primary Care Provider +1- [phone] Encounter Details Date Type Department Care Team (Late st Contact Info) Description 09/26/2017 Interpretation Only [facility] [address] [place] [id number] Unknown None Social History Tobacco Use Types [...] Priority Date/Time Associated Diagnosis Comments XR PELVIS Routine 09/26/2017 11:30 AM EST documented in this encounter Results * XR Pelvis (Generic) (09/26/2017 11:30 AM EST) Anatomical Region Laterality Modality Pelvis N/A Radiographic Elva ging 09/26/2017 11:3 0 AM EST Impressions 09/26/2017 12:48 PM EST Mild bilateral hip osteoarthritis. Narrative 09/26/2017 12:48 PM EST EXAMINATION: PELVIS (1-2VWS) -ROUTN CLINICAL HISTORY: STANDING AP SINGLE VIEW: ASSESS HIP HEIGHT AND FOR, ADVANCING HIP JOINT DEGENERATIVE CHANGES. TECHNIQUE: AP COMPARISON: None FINDINGS: Mild joint space narrowing with small osteophytes in the bilateral hips. Small femoral head osteophytes. No femoral neck fracture. Procedure Note Sana Todd MD - 09/26/2017 EXAMINATION: PELVIS (1-2VWS) -ROUTN CLINICAL HISTORY: STANDING AP SINGLE VIEW: ASSESS HIP HEIGHT AND FOR,ADVANCING HIP JOINT DEGENERATIVE CHANGES. TECHNIQUE: AP COMPARISON: None FINDINGS: Mild joint space narrowing with small osteophytes in the bilateral hips.Small femoral head osteophytes. No femoral neck fracture. IMPRESSION Mild bilateral hip osteoarthritis. Unknown IMG DX ORDERABLES documented in this encounter Visit Diagnoses Not on filedocumented in this encounter Care Teams Site Leader Relationship Specialty Start Date End Date Ritu Bolaños APRN [address] [place] [address] PCP - General 05/07/15 02/03/22 documented as of this encounter
--- OUTSIDE RECORDS SUMMARY | 2024-04-12 15:17 | XMS_ITS | Encounter Summary ---
Author Organization [facility] Address [facility] [place] [address] Care Team Providers Care Talent Specialist Name Role Phone Beto Perez MD Primary Care Provider [phone] Encounter Details Date Type Department Care Team (Late st Contact Info) Description 04/28/2015 Orders Only XRay at [address] [place] [address] Regla Mccormick MD [facility] [place] [address] Social History Tobacco Use Types Packs/Day Years [...] on filedocumented in this encounter Care Teams Talent Specialist Relationship Specialty Start Date End Date Beto Perez MD [address] [place] [phone] PCP - General 08/11/10 05/06/15 documented as of this encounter
--- OUTSIDE RECORDS SUMMARY | 2024-04-12 15:17 | XMS_ITS | Encounter Summary ---
Author Organization [facility] [place] [address] Care Team Providers Care Computing Consultant Name Role Phone Ritu Bolaños APRN Primary Care Provider [phone]- [phone] Encounter Details Date Type Department Care Team (Late st Contact Info) Description 01/17/2018 Interpretation Only [facility] [address] [place] [phone] Jerome Fontanez MD [address] [place] [address] Social History Tobacco Use Types Packs/Day Years [...] NO RAD <1HR - RADIOLOGY USE Routine 01/17/2018 7:30 AM EDT documented in this encounter Results * XR Fluoro No Rad <1Hr - Radiology Use (01/17/2018 7:30 AM EDT) Anatomical Region Laterality Modality N/A Radiographic Elva ging 01/17/2018 7:30 AM EDT Impressions 01/17/2018 11:31 AM EDT C-arm fluoroscopy used for intraoperative guidance. Fluoroscopy time: 3.7 seconds Dose (mGy): 3.16 Narrative 01/17/2018 11:31 AM EDT EXAMINATION: C-ARM (<1HR) CLINICAL HISTORY: L3-4 DECOMPRESSION FUSION CORTICAL SCREW - OR ROOM 2, ?? Procedure Note Sana Todd MD - 01/17/2018 EXAMINATION: C-ARM (<1HR) CLINICAL HISTORY: L3-4 DECOMPRESSION FUSION CORTICAL SCREW - OR ROOM 2, IMPRESSION C-arm fluoroscopy used for intraoperative guidance. Fluoroscopy time: 3.7 seconds Dose (mGy): 3.16 Jerome Fontanez MD IMG FLUORO ORDERABLE S documented in this encounter Visit Diagnoses Not on filedocumented in this encounter Care Teams Computing Consultant Relationship Specialty Start Date End Date Ritu Bolaños APRN [address] [place] [address] PCP - General 05/07/15 02/03/22 documented as of this encounter
--- OUTSIDE RECORDS SUMMARY | 2024-04-12 15:17 | XMS_ITS | Encounter Summary ---
Author Organization [facility] Address [address] [place] [address] Care Team Providers Care Pulp Screen Operator Name Role Phone Unknown, Provider Primary Care Provider Encounter Details Date Type Department Care Team (Late st Contact Info) Description 09/21/2023 Lab Requisition [facility] Pathology & Laboratory Medicine - [address] [address] Outr Resulting Lab, Provider Social History Tobacco [...] Procedure Name Priority Date/Time Associated Diagnosis Comments T3, TOTAL Routine 09/21/2023 8:41 EST documented in this encounter Results * T3, TOTAL (09/21/2023 8:41 EST) T3, Total 111 97 - 169 ng/dL 09/21/2023 22:56 EST [facility] Blood VENOUS BLOOD / Unknown 09/21/2023 8:41 EST 09/21/2023 21:44 EST Provider Outr Resulting Lab CHEMISTRY & BLOOD GAS ORDERABLES [facility] [address] [place] [address] documented in this encounter Visit Diagnoses Not on filedocumented in this encounter Care Teams Pulp Screen Operator Relationship Specialty Start Date End Date Unknown, Provider, PCP - General 08/02/15 documented as of this encounter
--- OUTSIDE RECORDS SUMMARY | 2024-04-12 15:17 | XMS_ITS | Encounter Summary ---
Author Organization [facility] Address [facility] [place] [address] Care Team Providers Care Estate Planning Counselor Name Role Phone Ritu Bolaños APRN Primary Care Provider [phone]- [phone] Encounter Details Date Type Department Care Team (Late st Contact Info) Description 10/20/2018 External Results Medical Records [facility] [place] [address] Provider, Scanning Social History Tobacco Use Types Packs/Day Years [...] Priority Date/Time Associated Diagnosis Comments SURGICAL PATHOLOGY SCAN Routine 10/20/2018 documented in this encounter Results * Scan Doc: Surgical Pathology (10/20/2018) Historical Provider MD DRUMMOND MGR SCAN EX T ORDR/RSLT documented in this encounter Visit Diagnoses Not on filedocumented in this encounter Care Teams Estate Planning Counselor Relationship Specialty Start Date End Date Ritu Bolaños APRN [address] [place] [address] PCP - General 05/07/15 02/03/22 documented as of this encounter
--- OUTSIDE RECORDS SUMMARY | 2024-04-12 15:17 | XMS_ITS | Encounter Summary ---
Author Organization [facility] Address [facility] [place] [address] Care Team Providers Care Underwriting Manager Name Role Phone Ritu Bolaños APRN Primary Care Provider [phone]- [phone] Encounter Details Date Type Department Care Team ([facility] st Contact Info) Description 01/10/2018 Abstract Tianna Almaguer Lynnette Conversion Results [address] [place] [address] Apd Conversion, Flowsheet Provider, Social History Tobacco Use Types Packs/Day Years Used Date Smoking Tobacco: Never Assessed Sex and Gender Information Value Date Recorded Sex Assigned at Not on file Gender Identity Female 09/25/2020 7:37 PM EST Sexual Orientation Not on file documented as of this encounter Last Filed Vital Signs Vital Sign Reading Time Taken Comments Blood Pressure 148/89 01/10/2018 11:24 AM EDT Sourced from APD Conversion Pulse - - Temperature - - Respiratory Rate - - Oxygen Saturation - - Inhaled Oxygen Concentration - - Weight - - Height - - Body Mass Index - - documented in this encounter Plan of Treatment Not on file documented as of this encounter Visit Diagnoses Not on filedocumented in this encounter Care Teams Underwriting Manager Relationship Specialty Start Date End Date Ritu Bolaños APRN [address] [place] [phone] PCP - General 05/07/15 02/03/22 documented as of this encounter
--- OUTSIDE RECORDS SUMMARY | 2024-04-12 15:17 | XMS_ITS | Encounter Summary ---
Author Organization [place] [address] Care Team Providers Care Orthotic Technician Name Role Phone Ritu Bolaños RAEANN Primary Care Provider [phone]- [phone] Encounter Details Date Type Department Care Team (Latest Contact Info) Description 05/25/2017 9:53 PM EDT - 05/25/2017 11:59 PM EDT Hospital [place] [phone] Discharge Disposition: Home Social History Tobacco Use [...] Priority Date/Time Associated Diagnosis Comments SURGICAL PATHOLOGY REPORT Routine 05/25/2017 12:00 PM EDT documented in this encounter Results * Surgical Pathology Report (05/25/2017 12:00 PM EDT) FINAL DIAGNOSIS (AP) [id number] ? Location: [facility]DO The signing pathologist has (i) examined the relevant preparation(s) for the specimen(s) and (ii) rendered or confirmed the diagnosis(es). . ?Surgical Pathology DIAGNOSIS A - Soft tissue, Right greater trochanteric Bursa, Open right gluteus medius tendon tear repair and greater trochanteric bursectomy. - Fibroconnective tissue, hyperplastic synovium and bursa with reactive changes Electronically signed by: ??Adelso Rosenthal MD Verified: ??05/30/2017 ?[address]ologi st, Bone & Soft Tissue Pathologist CLINICAL INFORMATION Specimen Submitted: A - Right greater trochanteric bursa Clinical History: Right greater trochanteric bursectomy Clinical Diagnosis: Right hip trochanteric bursitis Referring Identifier: ??[id number] SPECIMEN PROCESSING A - Labeled/Fixative: Right greater trochanteric bursa, formalin. Quantity/Size: Fragments, aggregating 4.5 x 2.2 x 0.7 cm. Tissue Description: Montiel-pink fibromembranous tissues. Sections/Processin g: Truck Body Builder sections are submitted. (R2) ??ppsf 05/30/2017 2:05 PM EDT [facility] 05/25/2017 12:0 0 PM EDT Narrative Resulting Agency Comment Spec In Lab / [facility]D Claudio Cox MD PATHOLOGY/CYTOLOGY O RDERABLES [facility] [place] [address] documented in this encounter Visit Diagnoses Not on filedocumented in this encounter Care Teams Orthotic Technician Relationship Specialty Start Date End Date Ritu Bolaños APRN [address] [place] [address] PCP - General 05/07/15 02/03/22 documented as of this encounter
--- OUTSIDE RECORDS SUMMARY | 2024-04-12 15:17 | XMS_ITS | Encounter Summary ---
Author Organization [facility] [place] [address] Care Team Providers Care Program Director Substance Abuse Name Role Phone Ritu Bolaños APRN Primary Care Provider +1- [phone] Encounter Details Date Type Department Care Team (Late st Contact Info) Description 07/20/2018 Interpretation Only [facility] [address] [place] [phone] Claudio Cox MD [address] [place] [address] Social History Tobacco Use Types Packs/Day Years Used Date Smoking Tobacco: Never Assessed Sex and Gender Information Value Date Recorded Sex Assigned at Not on file Gender Identity Female 09/25/2020 7:37 PM EST Sexual Orientation Not on file documented as of this encounter Plan of Treatment Not on file documented as of this encounter Procedures Procedure Name Priority Date/Time Associated Diagnosis Comments XR FEMUR 2 VIEWS RIGHT Routine 07/20/2018 11:23 AM EDT documented in this encounter Results * XR Femur 2 views Right (Generic) (07/20/2018 11:23 AM EDT) Anatomical Region Laterality Modality Thigh Right Radiographic Elva ging 07/20/2018 11:2 3 AM EDT Addenda Addendum by Jojo Fall MD on 08/17/2018 1:54 PM EST --------ADDENDUM #1-------- CLINICAL HISTORY: ??Gluteal tendonitis right hip, Greater trochanter bursitis of right hip. ??Assess femur. --------ORIGINAL REPORT -------- EXAMINATION: FEMUR -RT (2VWS) CLINICAL HISTORY: ??ASSES RT FEMUR , ?? TECHNIQUE: 2 views. COMPARISON: Hip radiograph September 2017 FINDINGS: Bones: Right femur- no fracture, periostitis or bone destruction. Radiolucencies in greater trochanter is unchanged and is nonspecific and could be related to tendinopathy at tendon insertion. Right hip joint: No dislocation is seen. Marginal osteophytes and relatively preserved joint spaces. Soft tissue: Normal. Impression No fracture or dislocation Narrative 07/20/2018 1:02 PM EDT EXAMINATION: FEMUR -RT (2VWS) CLINICAL HISTORY: ??ASSES RT FEMUR , ?? TECHNIQUE: 2 views. COMPARISON: Hip radiograph September 2017 FINDINGS: Bones: Right femur- no fracture, periostitis or bone destruction. Radiolucencies in greater trochanter is unchanged and is nonspecific and could be related to tendinopathy at tendon insertion. Right hip joint: No dislocation is seen. Marginal osteophytes and relatively preserved joint spaces. Soft tissue: Normal. Impression No fracture or dislocation Procedure Note Jojo Fall MD - 07/20/2018 EXAMINATION: FEMUR -RT (2VWS) CLINICAL HISTORY: ASSES RT FEMUR , TECHNIQUE: 2 views. COMPARISON: Hip radiograph September 2017 FINDINGS: Bones: Right femur- no fracture, periostitis or bone destruction. Radiolucenciesin greater trochanter is unchanged and is nonspecific and could be relatedto tendinopathy at tendon insertion. Right hip joint: No dislocation is seen. Marginal osteophytes andrelatively preserved joint spaces. Soft tissue: Normal. Impression No fracture or dislocation Claudio Cox MD IMG DX ORDERABLES documented in this encounter Visit Diagnoses Not on filedocumented in this encounter Care Teams Program Director Substance Abuse Relationship Specialty Start Date End Date Ritu Bolaños APRN [address] [place] [address] PCP - General 05/07/15 02/03/22 documented as of this encounter
--- OUTSIDE RECORDS SUMMARY | 2024-04-12 15:17 | XMS_ITS | Encounter Summary ---
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 Right hip pain Greater trochanteric bursitis of right hip Procedures CT Guided Joint Injection Claudio Cox MD [address] [place] [address] [facility] [place] [address] Referral ID Status Reason Start Date Expiration Date V isits Requested Visits Authorized [id number] Closed Specialty Service Requested 08/29/2018 08/29/2019 1 1 Reason for Visit * Diagnostic Test (Routine) - Closed Specialty Diagnoses / Procedures Referred By Contac t Referred To Contact Radiology Diagnoses Gluteal tendinitis, right hip 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 Right hip pain Greater trochanteric bursitis of right hip Procedures CT Guided Joint Injection Claudio Cox MD [address] [place] [address] [facility] [place] [address] Referral ID Status Reason Start Date Expiration Date V isits Requested Visits Authorized [id number] Closed Specialty Service Requested 08/29/2018 08/29/2019 1 1 Encounter Details Date Type Department Care Team (Latest Contact Info) Description 09/04/2018 8:24 AM EST - 09/04/2018 11:59 PM EST Hospital [place] [address] Claudio Cox MD [address] [place] [address] Gluteal tendinitis, right hip; 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; Right hip pain; Greater trochanteric bursitis of right hip Discharge Disposition: Home Social History [...] Priority Date/Time Associated Diagnosis Comments CT GUIDED JOINT INJECTION Routine 09/04/2018 11:01 AM EST Gluteal tendinitis, right hip 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 Narrative 09/04/2018 1:[address] GUIDED right trochanteric bursa INJECTION HISTORY: Body Part (please add comments as necessary): Ct guided aspiration of fluid collection right lateral greater trochanter with cortisone injection. ; CT guided aspiration of fliud collection right lateral greater trochanter with cortisone injections. TECHNIQUE: After an extensive conversation with the patient regarding risks and benefits, oral and written consent were obtained.? A pre- procedural time-out was performed, including review of the patient's relevant electronic medical record and allergies, as per [facility] protocol. The patient was placed in a supine position on the CT table. ??Axial images of the right hip were acquired. The needle entry site was marked using CT guidance. The skin overlying the right hip was prepped and draped in the usual aseptic manner. 1% Lidocaine was used to achieve local anesthesia. Under CT guidance, an 18-gauge needle was advanced into the soft tissues overlying the greater trochanter of the right hip. ??The location of the needle tip was documented on axial CT images. I was able to aspirate a scant amount of blood-tinged synovial fluid. Injection of air reveals some positioning of the needle within the bursa. A mixture of ropivacaine and depomedrol was injected. All needles removed at end of procedure and hemostasis achieved. FINDINGS: 1. ??Needle tip positioned within the right trochanteric bursa 2. Medications: ??Lidocaine 1% - <5 ml, for subcutaneous anesthesia Depomedrol: 40 mg ? Ropivacaine 0.5%: 1 cc COMPLICATIONS: ??None immediate. POST-PROCEDURE CARE: Information regarding monitor of infection, post- procedural pain and management of steroid flare were reviewed with patient. Procedure Note Chao Daley MD - 09/04/2018 CT GUIDED right trochanteric bursa INJECTION HISTORY: Body Part (please add comments as necessary): Ct guidedaspiration of fluid collection right lateral greater trochanter with cortisoneinjection. ; CT guided aspiration of fliud collection right lateral greater trochanterwith cortisone injections. TECHNIQUE: After an extensive conversation with the patient regarding risks andbenefits, oral and written consent were obtained.? A pre- procedural time-out was performed, including review of the patient's relevant electronic medicalrecord and allergies, as per [facility] protocol. The patient was placed in a supine position on the CT table. Axial imagesof the right hip were acquired. The needle entry site was marked using CTguidance. The skin overlying the right hip was prepped and draped in the usualaseptic manner. 1% Lidocaine was used to achieve local anesthesia. Under CTguidance, an 18-gauge needle was advanced into the soft tissues overlying thegreater trochanter of the right hip. The location of the needle tip wasdocumented on axial CT images. I was able to aspirate a scant amount of blood-tingedsynovial fluid. Injection of air reveals some positioning of the needle within thebursa. A mixture of ropivacaine and depomedrol was injected. All needles removedat end of procedure and hemostasis achieved. FINDINGS: 1. Needle tip positioned within the right trochanteric bursa 2. Medications: Lidocaine 1% - <5 ml, for subcutaneous anesthesia Depomedrol: 40 mg Ropivacaine 0.5%: 1 cc COMPLICATIONS: None immediate. POST-PROCEDURE CARE: Information regarding monitor of infection, post- procedural pain and management of steroid flare were reviewed withpatient. IMPRESSION Uneventful right trochanteric bursa injection under CT Resident/ Fellow: None Attending: Thuy I performed this procedure. 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 Right hip pain Pain in joint, pelvic region and thigh Greater trochanteric bursitis of right hip Enthesopathy of hip region documented in this encounter Administered Medications Inactive Administered Medications - up to 3 most recent administrations Medication Order MAR Action Action Date Dose Rate Site methylPREDNISolone acetate (DEPO-Medrol) injection 80 mg 80 mg, Intra-articular, ONCE, 1 dose, On 09/04/18 at 1130, Routine Given 09/04/2018 11:30 AM EST 80 mg documented in this encounter Care Teams Soap Tender Relationship Specialty Start Date End Date Ritu Bolaños APRN [address] [place] [address] PCP - General 05/07/15 02/03/22 documented as of this encounter
--- OUTSIDE RECORDS SUMMARY | 2024-04-12 15:17 | XMS_ITS | Encounter Summary ---
Author Organization [facility] [place] [address] Care Team Providers Care Stationary Engineer Supervisor Name Role Phone Ritu Bolaños APRN Primary Care Provider +1- [phone] Encounter Details Date Type Department Care Team (Late st Contact Info) Description 04/26/2018 Interpretation Only [facility] [address] [place] [phone] Jerome Fontanez MD [address] [place] [address] Social History Tobacco Use Types Packs/Day Years [...] LUMBAR SPINE 2 OR 3 VIEWS Routine 04/26/2018 10:03 AM EDT documented in this encounter Results * XR Lumbar Spine 2 Or 3 Views (Generic) (04/26/2018 10:03 AM EDT) Anatomical Region Laterality Modality L-spine N/A Radiographic Elva ging 04/26/2018 10:0 3 AM EDT Impressions 04/26/2018 10:21 AM EDT Status post L3-L4 posterior fusion. Stable alignment. No hardware failure. Narrative 04/26/2018 10:21 AM EDT EXAMINATION: SPINE LUMBAR (2-3VWS) -ROUTN CLINICAL HISTORY: ASSES HEALING S/P FUSION - ., L5,S1, ?? TECHNIQUE: Frontal and lateral views of the lumbar spine. COMPARISON: 02/24/2018 FINDINGS: Status post posterior fusion L3-L4. The hardware remains unchanged. The alignment is stable. There is mild spondylolisthesis L3 on L4, unchanged. Minimal compression deformities is of the superior endplates of L3 and L4 vertebral bodies are also seen. This is unchanged. Diffuse degenerative changes are identified throughout the lumbar spine. This is most pronounced within the inferior lumbar spine were severe intervertebral joint spaces narrowing and facet joints arthropathy is seen. Procedure Note Rohan More MD - 04/26/2018 EXAMINATION: SPINE LUMBAR (2-3VWS) -ROUTN CLINICAL HISTORY: ASSES HEALING S/P FUSION - ., L5,S1, TECHNIQUE: Frontal and lateral views of the lumbar spine. COMPARISON: 02/24/2018 FINDINGS: Status post posterior fusion L3-L4. The hardware remains unchanged. The alignment is stable. There is mild spondylolisthesis L3 on L4,unchanged. Minimal compression deformities is of the superior endplates of L3 andL4 vertebral bodies are also seen. This is unchanged. Diffuse degenerativechanges are identified throughout the lumbar spine. This is most pronounced withinthe inferior lumbar spine were severe intervertebral joint spaces narrowingand facet joints arthropathy is seen. IMPRESSION Status post L3-L4 posterior fusion. Stable alignment. No hardwarefailure. 10:16 AM Jerome Fontanez MD IMG DX ORDERABLES documented in this encounter Visit Diagnoses Not on filedocumented in this encounter Care Teams Stationary Engineer Supervisor Relationship Specialty Start Date End Date Ritu Bolaños APRN [address] [place] [phone] PCP - General 05/07/15 02/03/22 documented as of this encounter
--- OUTSIDE RECORDS SUMMARY | 2024-04-12 15:17 | XMS_ITS | Encounter Summary ---
Author Organization [facility] Address [address] [place] [address] Care Team Providers Care Yard Worker Name Role Phone Unavailable Primary Care Provider Unavailabl e Encounter Details Date Type Department Care Team (Late st Contact Info) Description 02/05/2005 Results Only [facility] [address] [place] [address] Hans Macedo DPM [address] [place] [phone] Social History Tobacco Use Types Packs/Day Years Used Date Smoking Tobacco: Never Assessed Sex and Gender Information Value Date Recorded Sex Assigned at Not on file Gender Identity Not on file Sexual Orientation Not on file documented as of this encounter Plan of Treatment Not on file documented as of this encounter Procedures Procedure Name Priority Date/Time Associated Diagnosis Comments SURGICAL PATHOLOGY Routine 02/05/2005 0:00 EDT documented in this encounter Results * SURGICAL PATHOLOGY (02/05/2005 0:00 EDT) Pathology Report: SURGICAL PATHOLOGY REPORT Reports generated via electronic interface contain original data; however they are lacking the format of the original report. Caution should be taken when reading/interpreti ng unformatted reports. Name: ? JIGNA AMEZCUA ? Accession #: ? [id number] ? : ? 1945 (Age: 59) ??F ? Collect Date: ? 02/05/2005 ? Location: ? [facility] ? Receive Date: ? 02/05/2005 ? Provider: HANS MACEDO DPM Copy to: LUDMILA PUENTES MD ? Final Pathologic Diagnosis: ? Foot, left, ganglion, excision: - Consistent with ganglion cyst. Document reviewed and electronically signed by: RUTH DEL CASTILLO MD Report ??Date: 02/09/2005 16:53 By the signature above, the attending physician certifies that he/she has personally conducted a gross and/or microscopic examination of the described specimens and rendered or confirmed the above diagnosis. Specimen(s) Received: ? Ganglion L foot Clinical History: ? Hallux valgus, painful bunion, painful ganglion cyst Gross Description: ? Received in formalin labelled Alexis and ganglion L foot is a dense bailey-white, firm, fibrous unoriented soft tissue measuring 2.0 x 0.7 x 0.3 cm. Upon sectioning, the cut surfaces are bailey-white, firm and fibrous. ??No discrete nodules are identified. ??The specimen is longitudinally bisected and is entirely submitted in one cassette. (Bia Haley)/mpl End of Report PENNY BRITT 02/05/2005 02/05/2005 15: 11 EDT Hans Macedo DPM PATHOLOGY ORDERAB LES PENNY BRITT [address] [place] [address] documented in this encounter Visit Diagnoses Not on filedocumented in this encounter
--- OUTSIDE RECORDS SUMMARY | 2024-04-12 15:17 | XMS_ITS | Encounter Summary ---
Author Organization [facility] Address [facility] [place] [address] Care Team Providers Care Enrollment Management Director Name Role Phone Beto Perez MD Primary Care Provider [phone] Encounter Details Date Type Department Care Team (Late st Contact Info) Description 04/25/2015 Orders Only XRay at [address] [place] [address] Regla Mccormick MD [facility] [place] [address] Social History Tobacco Use Types Packs/Day Years [...] Comments FILM LIBRARY STORAGE ONLY MAMMO Routine 04/25/2015 3:40 PM EDT documented in this encounter Results * Film Library- Storage only Mammo (04/25/2015 3:40 PM EDT) Anatomical Region Laterality Modality Other 04/25/2015 3:40 PM EDT Narrative 04/29/2015 3:54 PM EDT This is a Non-reportable exam Procedure Note MANUEL, UNSIGNED REPORT - 04/29/2015 This is a Non-reportable exam Regla Mccormick MD IM FILM LIBRARY O RDERABLES documented in this encounter Visit Diagnoses Not on filedocumented in this encounter Care Teams Enrollment Management Director Relationship Specialty Start Date End Date Beto Perez MD [address] [place] [phone] PCP - General 08/11/10 05/06/15 documented as of this encounter
--- OUTSIDE RECORDS SUMMARY | 2024-04-12 15:17 | XMS_ITS | Encounter Summary ---
Author Organization [facility] Address [facility] [place] [address] Care Team Providers Care Farmworker General Name Role Phone Ritu Bolaños APRN Primary Care Provider [phone] Encounter Details Date Type Department Care Team (Latest Contact Info) Description 07/23/2016 10:15 AM EDT - 07/23/2016 11:59 PM EDT Hospital Encounter [place] [address] Regla Mccormick MD [facility] [address] [place] [address] Breast calcifications Discharge Disposition: Home Social History Tobacco Use [...] Name Priority Date/Time Associated Diagnosis Comments MAMMO 2D DIGITAL DIAG WALDEMAR WITH CAD BILATERAL Routine 07/23/2016 10:38 AM EDT Breast calcifications documented in this encounter Results * Mammo Diag Waldemar Bilateral (07/23/2016 10:38 AM EDT) Anatomical Region Laterality Modality Breast Bilateral Mammography Impressions 07/23/2016 10:43 AM EDT Left breast: No suspicious findings. Subareolar calcifications have coalesced into a dystrophic group, benign. BI-RADS 2, benign findings. Right breast: Negative mammography. BI-RADS 1, negative. RECOMMENDATION: These findings and recommendations were discussed with the patient. Annual screening mammography was recommended, next due in July 2017. The patient concurs. BI-RADS 2, benign findings. Narrative 07/23/2016 10:43 AM EDT EXAMINATION: BILATERAL BREAST(S) DIAGNOSTIC MAMMOGRAM INDICATION: 6 month follow up, to be done in July 2016. ??71-year-old female for diagnostic mammography, left breast spot magnification views, one year follow-up, BI-RADS 3. TECHNIQUE: Bilateral 2-D/3-D digital mammography, direct image capture. Additional spot magnification views of the left breast. CAD software was utilized. Tomographic imaging was obtained. COMPARISON: 01/19/2016, multiple additional comparisons. FINDINGS: Density, scattered densities. Left breast: No suspicious calcifications, mass, distortion. Specifically, the subareolar left breast group of microcalcifications appears benign, coalescing into a dystrophic appearance without suspicious features. No additional findings. Right breast: No suspicious calcifications, mass, distortion. Regla Mccormick MD IMG MAMMO ORDERABL ES documented in this encounter Visit Diagnoses Diagnosis Breast calcifications Other (abnormal) findings on radiological examination of breast documented in this encounter Care Teams Farmworker General Relationship Specialty Start Date End Date Ritu Bolaños APRN [address] [place] [address] PCP - General 05/07/15 02/03/22 documented as of this encounter
--- OUTSIDE RECORDS SUMMARY | 2024-04-12 15:17 | XMS_ITS | Encounter Summary ---
Author Organization [facility] Address [address] [place] [address] Care Team Providers Care White Sidewall Tire Buffer Name Role Phone Unknown, Provider Primary Care Provider Encounter Details Date Type Department Care Team (Latest Contact Info) Description 02/13/2019 10:13 EDT - 02/13/2019 23:59 EDT Hospital Encounter [address] [address] Unknown, Provider, Discharge Disposition: Home or Self Care Social History Tobacco Use Types Packs/Day Years Used Date Smoking Tobacco: Never Assessed Sex and Gender Information Value Date Recorded Sex Assigned at Not on file Gender Identity Not on file Sexual Orientation Not on file documented as of this encounter Discharge Disposition Disposition Code Departure Means Destination Home or Self Senior Care documented in this encounter Plan of Treatment Not on file documented as of this encounter Visit Diagnoses Not on filedocumented in this encounter Care Teams White Sidewall Tire Buffer Relationship Specialty Start Date End Date Unknown, Provider, PCP - General 08/02/15 documented as of this encounter
--- OUTSIDE RECORDS SUMMARY | 2024-04-12 15:17 | XMS_ITS | Encounter Summary ---
Author Organization [facility] Address [facility] [place] [address] Care Team Providers Care Makeup Artistry Instructor Name Role Phone Ritu Bolaños RAEANN Primary Care Provider [phone] Encounter Details Date Type Department Care Team (Latest Contact Info) Description 10/19/2018 4:41 PM EST - 10/19/2018 11:59 PM EST Hospital [place] [phone] Discharge Disposition: Home Social History Tobacco Use Types Packs/Day Years Used Date Smoking Tobacco: Never Assessed Sex and Gender Information Value Date Recorded Sex Assigned at Not on file Gender Identity Female 09/25/2020 7:37 PM EST Sexual Orientation Not on file documented as of this encounter Medications at Time of Discharge Medication Sig Dispensed Refills Start Date End Date alendronate (FOSAMAX) 70 mg TabletIndications:TAKES EITHER TUESDAY OR TUESDAY Take 70 mg by mouth every 7 days. Indications: TAKES EITHER TUESDAY OR Tuesday10/02/2018 05/06/2020 documented as of this encounter Plan of Treatment Not on file documented as of this encounter Procedures Procedure Name Priority Date/Time Associated Diagnosis Comments SURGICAL PATHOLOGY REPORT Routine 10/19/2018 9:10 AM EST documented in this encounter Results * Surgical Pathology Report (10/19/2018 9:10 AM EST) FINAL DIAGNOSIS (AP) [id number] ? Location: [facility] The signing pathologist has (i) examined the relevant preparation(s) for the specimen(s) and (ii) rendered or confirmed the diagnosis(es). . 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 of Pathology, [place], [place] CLINICAL INFORMATION Specimen Submitted: A - Epidural mass Clinical History and Diagnosis: Epidural mass Referring Identifier: ??[id number] SPECIMEN PROCESSING A - Labeled/Fixative: Epidural mass, formalin. Quantity/Size: Two, 0.7 x 0.4 x 0.2 cm and 1.1 x 0.8 x 0.7 cm. Tissue Description: Irregular bailey-yellow soft tissue is resembling portions of intact and partly collapsed cyst wall and contents. Sections/Processi ng: Entirely submitted in 1 cassette labeled A1. ??pps 10/23/2018 11:27 AM EST [facility] 10/19/2018 9:10 AM EST Narrative Resulting Agency Comment Spec In Lab / [facility] Jerome Fontanez MD PATHOLOGY/CYTOLOGY O RDERABLES [facility] [place] [address] documented in this encounter Visit Diagnoses Not on filedocumented in this encounter Care Teams Makeup Artistry Instructor Relationship Specialty Start Date End Date Ritu Bolaños APRN [address] [place] [address] PCP - General 05/07/15 02/03/22 documented as of this encounter
--- OUTSIDE RECORDS SUMMARY | 2024-04-12 15:17 | XMS_ITS | Encounter Summary ---
Author Organization [facility] Address [facility] [place] [address] Care Team Providers Care Vacuum Drier Operator Name Role Phone Beto Perez MD Primary Care Provider [phone] Encounter Details Date Type Department Care Team (Latest Contact Info) Description 05/01/2015 9:20 AM EDT - 05/01/2015 11:59 PM EDT Hospital Encounter XRay at [address] [place] [address] CL[address], DR [place] Discharge Disposition: Home Social History Tobacco Use [...] on filedocumented in this encounter Care Teams Vacuum Drier Operator Relationship Specialty Start Date End Date Beto Perez MD [address] [place] [phone] PCP - General 08/11/10 05/06/15 documented as of this encounter
--- OUTSIDE RECORDS SUMMARY | 2024-04-12 15:17 | XMS_ITS | Encounter Summary ---
Author Organization [facility] Address [facility] [place] [address] Care Team Providers Care Green Building Energy Engineer Name Role Phone Ritu oBlaños APRN Primary Care Provider [phone] Encounter Details Date Type Department Care Team (Late st Contact Info) Description 07/20/2018 Abstract [facility] Conversion Results [address] [place] [address] [facility] Conversion, Flowsheet Provider, Social History Tobacco [...] - Inhaled Oxygen Concentration - - Weight 61.6 kg (135 lb 12.9 oz) 07/20/2018 10:59 AM EDT Sourced from [facility] Conversion Height 160 cm (5' 2.99) 07/20/2018 10: 59 AM EDT Sourced from [facility] Conversion Body Mass Index 24.06 07/20/2018 10:59 AM EDT documented in this encounter Plan of Treatment Not on file documented as of this encounter Visit Diagnoses Not on filedocumented in this encounter Care Teams Green Building Energy Engineer Relationship Specialty Start Date End Date Ritu Bolaños APRN [address] [place] [phone] PCP - General 05/07/15 02/03/22 documented as of this encounter
--- OUTSIDE RECORDS SUMMARY | 2024-04-12 15:17 | XMS_ITS | Encounter Summary ---
Author Organization [facility] [place] [address] Care Team Providers Care High School Learning Support Teacher Name Role Phone Ritu Bolaños APRN Primary Care Provider [phone] Encounter Details Date Type Department Care Team (Late st Contact Info) Description 10/19/2018 Interpretation Only [facility] [address] [place] [id number] Jerome Fontanez MD [address] [place] [address] Social History Tobacco Use Types Packs/Day Years [...] XR O-ARM MORE THAN ONE HOUR Routine 10/19/2018 7:30 AM EST documented in this encounter Results * XR O-Arm More Than One Hour (10/19/2018 7:30 AM EST) Anatomical Region Laterality Modality Other 10/19/2018 7:30 AM EST Impressions 10/20/2018 8:25 AM EST C-arm fluoroscopy used for intraoperative guidance. Fluoroscopy time: Three seconds Dose (Rcm2): 93 Please refer to the attending neurosurgeon's note for operative details. A transpedicular ghost screw track is noted in L3 on the right side. Thank you for letting us participate in the care of this patient. For questions regarding this report, please contact the number below. ? Narrative 10/20/2018 8:25 AM EST EXAMINATION: O-ARM ( =>1HR ) CLINICAL HISTORY: BILATERAL L2-3 LAMI REVISION L3-4 FUSION - OR ROOM 2, ?? Procedure Note Darren Duncan MD - 10/20/2018 EXAMINATION: O-ARM ( =>1HR ) CLINICAL HISTORY: BILATERAL L2-3 LAMI REVISION L3-4 FUSION - OR ROOM 2, IMPRESSION C-arm fluoroscopy used for intraoperative guidance. Fluoroscopy time: Three seconds Dose (Rcm2): 93 Please refer to the attending neurosurgeon's note for operative details.A transpedicular ghost screw track is noted in L3 on the right side. Thank you for letting us participate in the care of this patient. Forquestions regarding this report, please contact the number below. Electronically signed by: MICHELLE WARNER [facility]([phone]), at 10/20/2018 8:20 AM Jerome Fontanez MD PACS IMAGES documented in this encounter Visit Diagnoses Not on filedocumented in this encounter Care Teams High School Learning Support Teacher Relationship Specialty Start Date End Date Ritu Bolaños APRN [address] [place] [address] PCP - General 05/07/15 02/03/22 documented as of this encounter
--- OUTSIDE RECORDS SUMMARY | 2024-04-12 15:17 | XMS_ITS | Referral Summary ---
Author Organization [facility] Address [address] [place] [address] Care Team Providers Care Online Journalist Name Role Phone Unknown, Provider Primary Care Provider [phone] Encounters Date Type Department Care Team Description 01/12/2024 Lab Requisition [facility] Pathology & Laboratory Medicine - [facility] [address] [place] [address] Vitor Jasso MD Encounter for other general examination from Last 3 Months Social History Tobacco Use Types Packs/Day Years Used Date Smoking Tobacco: Never Assessed Interpersonal Safety Answer Date Record ed Physically Hurt Never 04/20/2020 Verbally Threaten Not on file 04/20/2020 Sex and Gender Information Value Date Recorded Sex Assigned at Not on file Gender Identity Not on file Sexual Orientation Not on file Plan of Treatment Not on file Procedures Procedure Name Priority Date/Time Associated Diagnosis Comments SURGICAL PATHOLOGY Today 01/12/2024 15 :09 EDT from Last 3 Months Results * SURGICAL PATHOLOGY (01/12/2024 15:09 EDT) Note to Patient The following pathology results have been interpreted by your pathologist and may be available to you before your health provider has had the opportunity to review them. Please allow time for your provider to receive these results and explore management options, if applicable. 01/18/2024 9:43 EDT [facility] Final Diagnosis A. COLON, RIGHT, POLYP, BIOPSY: - Colonic mucosa with no specific pathologic features. See comment. B. COLON, TRANSVERSE, POLYP, BIOPSY: - Colonic mucosa with prominent lymphoid aggregate. See comment. C. COLON, SIGMOID, POLYP, BIOPSY: - Hyperplastic polyp. 01/18/2024 9:43 [facility] Diagnosis Comment Deeper levels of (A) and (B) of been examined. 01/18/2024 9:43 [facility] Attestation By the signature below, the attending physician certifies that they have 1) personally conducted a gross and/or microscopic examination of the described specimen(s), and/or personally interpreted the results of laboratory testing of the described specimen(s), and 2) personally rendered or confirmed the above diagnosis. 01/18/2024 9:43 [facility] at 0943 Clinical History Chronic constipation, colon polyps 01/18/2024 9:43 [facility] Gross Description A. Received in formalin labelled with proper patient identification (initials C, P) and Rt colon polyp is a single fragment of pink-bailey tissue (0.4 x 0.3 x 0.2 cm). The specimen is entirely submitted in A1. B. Received in formalin labelled with proper patient identification (initials C, P) and transverse colon polyp is a single fragment of bailey tissue (0.4 x 0.3 x 0.2 cm). The specimen is entirely submitted in B1. C. Received in formalin labelled with proper patient identification (initials C, P) and sigmoid colon polyp is a single fragment of bailey tissue (0.2 x 0.2 x 0.2 cm). The specimen is entirely submitted in C1. DAQUAN JONES(ASCP) 01/13/2024 8:16 01/18/2024 9:43 [facility] Performing Lab [facility] 01/18/2024 9:43 [facility] Scanned Images 01/18/2024 9:43 [facility] Tissue SIGMOID COLON STRUCTURE / Unknown 01/12/2024 15:09 EDT 01/12/2024 22:26 EDT Tissue specimen (specimen) TRANSVERSE COLON STRUCTURE / Unknown 01/12/2024 15:09 EDT 01/12/2024 22:26 EDT Tissue specimen (specimen) SIGMOID COLON STRUCTURE / Unknown 01/12/2024 15:09 EDT 01/12/2024 22:26 EDT Vitor Jasso MD PATHOLOGY ORDERA [facility] [address] [place] [address] from Last 3 Months Care Teams Online Journalist Relationship Specialty Start Date End Date Unknown, Provider, [facility] - General 08/02/15
--- OUTSIDE RECORDS SUMMARY | 2024-04-12 15:17 | XMS_ITS | Encounter Summary ---
Author Organization [facility] [place] [address] Care Team Providers Care Chinese Instructor Name Role Phone Ritu Bolaños APRN Primary Care Provider [phone] Encounter Details Date Type Department Care Team (Latest Contact Info) Description 08/22/2018 - 08/22/2018 11:59 PM EST Hospital Encounter [place] [address] Ritu Bolaños APRN [address] [place] [phone] Discharge Disposition: Home Social History Tobacco Use [...] FILM LIBRARY STORAGE ONLY MR HIP Routine 08/22/2018 12:00 AM EST documented in this encounter Results * Film Library- Storage Only MR Hip (08/22/2018 12:00 AM EST) Narrative TRACY - 08/28/2018 9:45 AM EST This exam is for storage only and is auto-finalizing. Ritu Bolaños APRN IMG FILM LIBRARY O RDERABLES [place], [place] documented in this encounter Visit Diagnoses Not on filedocumented in this encounter Care Teams Chinese Instructor Relationship Specialty Start Date End Date Ritu Bolaños APRN [address] [place] [phone] PCP - General 05/07/15 02/03/22 documented as of this encounter
--- OUTSIDE RECORDS SUMMARY | 2024-04-12 15:17 | XMS_ITS | Encounter Summary ---
Author Organization [facility] Address [facility] [place] [address] Care Team Providers Care Booster Assembler Name Role Phone Ritu Bolaños APRN Primary Care Provider [phone] Encounter Details Date Type Department Care Team (Late st Contact Info) Description 02/10/2017 Interpretation Only Radiology [facility] [place] [address] Unknown None Social History Tobacco Use Types [...] PELVIS AND HIP 2 VIEWS RIGHT Routine 02/10/2017 10:23 AM EDT documented in this encounter Results * XR Pelvis w AP & Lat Hip Right (02/10/2017 10:23 AM EDT) Anatomical Region Laterality Modality Pelvis, Hip Right Radiographic Elva ging 02/10/2017 10:2 3 AM EDT Narrative 02/10/2017 10:23 AM EDT [facility] Historical Result Principal Eclectic Doctor: ??DEEDEE ??RAY AP PELVIS AND RIGHT HIP: TECHNIQUE: ??AP pelvis and two views of the right hip. COMPARISON: ??MR of the right hip dated November 11, 2014, [facility]. FINDINGS: AP pelvis shows disc disease with spondylosis in the lower lumbar spine. ??SI joints look normal. ??There are phleboliths in the pelvis. ??Bowel gas pattern normal. There is osteophyte formation of the superior acetabulum with preservation of the joint space and no arthritic change around the humeral head. There is some osteophyte formation of the lateral acetabulum on the left as well with slight narrowing of the joint space. IMPRESSION: 1) Osteoarthritic changes both hips as described. ??2) Disc disease lower lumbar spine. Deedee Turk MD MR/cn [id number] Procedure Note Unknown - 03/19/2019 [facility] Historical Result Principal Eclectic Doctor: DEEDEE TURK AP PELVIS AND RIGHT HIP: TECHNIQUE: AP pelvis and two views of the right hip. COMPARISON: MR of the right hip dated November 11, 2014, [facility]. FINDINGS: AP pelvis shows disc disease with spondylosis in the lower lumbar spine.SI joints look normal. There are phleboliths in the pelvis. Bowel gas pattern normal. There is osteophyte formation of the superior acetabulum with preservationof the joint space and no arthritic change around the humeral head. There is some osteophyte formation of the lateral acetabulum on the leftas well with slight narrowing of the joint space. IMPRESSION: 1) Osteoarthritic changes both hips as described. 2) Discdisease lower lumbar spine. Deedee Turk MD MR/cn [id number] Unknown IMG DX ORDERABLES documented in this encounter Visit Diagnoses Not on filedocumented in this encounter Care Teams Booster Assembler Relationship Specialty Start Date End Date Ritu Bolaños APRN [address] [place] [address] PCP - General 05/07/15 02/03/22 documented as of this encounter
--- OUTSIDE RECORDS SUMMARY | 2024-04-12 15:17 | XMS_ITS | Encounter Summary ---
Author Organization [facility] Address [facility] [place] [address] Care Team Providers Care Bar Machine Operator Name Role Phone Ritu Bolaños APRN Primary Care Provider [phone]- [phone] Encounter Details Date Type Department Care Team (Late st Contact Info) Description 11/22/2018 Interpretation Only [facility] [address] [facility] [place] [phone] Adal Rutherford PA [address] [facility] [place] [address] Social History Tobacco Use Types Packs/Day Years [...] LUMBAR SPINE 2 OR 3 VIEWS Routine 11/22/2018 1:20 PM EST documented in this encounter Results * XR Lumbar Spine 2 Or 3 Views (Generic) (11/22/2018 1:20 PM EST) Anatomical Region Laterality Modality L-spine N/A Radiographic Elva ging 11/22/2018 1:20 PM EST Impressions 11/22/2018 1:56 PM EST Interval placement of L2 level posterior rods and screws, without hardware complication. Wedge compression fractures, retropulsion and listhesis, as above. Findings similar to comparison. Thank you for letting us participate in the care of this patient. For questions regarding this report, please contact the number below. ? Narrative 11/22/2018 1:56 PM EST EXAMINATION: SPINE LUMBAR (2-3VWS) -ROUTN CLINICAL HISTORY: ?? - ??, ??, S/P LUMBAR FUSION 73-year-old female. TECHNIQUE: Frontal and lateral views of the lumbar spine. COMPARISON: 10/02/2018. FINDINGS: 5 lumbar-shaped vertebral bodies. Posterior rods and screws bridging the L2, L3, and L4 vertebral bodies identified, with interval placement of rods and screws at the L2 level. No hardware complication is identified. Multifocal degenerative changes appreciated. Central and anterior height loss of the L3, and L4 vertebral bodies again identified with focal kyphosis and retropulsion of superior L4 in relation to L3. Mild anterolisthesis of L2 on L3, currently measuring approximately 3.5 mm. Multifocal endplate changes and disc height loss. Posterior element sclerosis. Procedure Note Jason Hancock MD - 11/22/2018 EXAMINATION: SPINE LUMBAR (2-3VWS) -ROUTN CLINICAL HISTORY: - , , S/P LUMBAR FUSION 73-year-old female. TECHNIQUE: Frontal and lateral views of the lumbar spine. COMPARISON: 10/02/2018. FINDINGS: 5 lumbar-shaped vertebral bodies. Posterior rods and screws bridging theL2, L3, and L4 vertebral bodies identified, with interval placement of rods andscrews at the L2 level. No hardware complication is identified. Multifocal degenerative changes appreciated. Central and anterior heightloss of the L3, and L4 vertebral bodies again identified with focal kyphosis and retropulsion of superior L4 in relation to L3. Mild anterolisthesis of L2on L3, currently measuring approximately 3.5 mm. Multifocal endplate changes anddisc height loss. Posterior element sclerosis. IMPRESSION Interval placement of L2 level posterior rods and screws, withouthardware complication. Wedge compression fractures, retropulsion and listhesis, asabove. Findings similar to comparison. Thank you for letting us participate in the care of this patient. Forquestions regarding this report, please contact the number below. Adal BUTT IMG DX ORDERABLES documented in this encounter Visit Diagnoses Not on filedocumented in this encounter Care Teams Bar Machine Operator Relationship Specialty Start Date End Date Ritu Bolaños APRN [address] [place] [address] PCP - General 05/07/15 02/03/22 documented as of this encounter
--- OUTSIDE RECORDS SUMMARY | 2024-04-12 15:17 | XMS_ITS | Encounter Summary ---
Author Organization [facility] Address [facility] [place] [address] Care Team Providers Care Retail Client Solutions Analyst Name Role Phone Ritu Bolaños RAEANN Primary Care Provider [phone]- [phone] Encounter Details Date Type Department Care Team (Late st Contact Info) Description 11/28/2017 Interpretation Only [facility] [address] [place] [id number] Unknown None Social History Tobacco Use Types [...] LUMBAR SPINE 2 OR 3 VIEWS Routine 11/28/2017 11:10 AM EDT documented in this encounter Results * XR Lumbar Spine 2 Or 3 Views (Generic) (11/28/2017 11:10 AM EDT) Anatomical Region Laterality Modality L-spine N/A Radiographic Elva ging 11/28/2017 11:1 0 AM EDT Impressions 11/28/2017 4:27 PM EDT Grade 1 L3-L4 anterolisthesis, measuring approximately 8mm. Moderately advanced degenerative disc disease at the lower 3 lumbar levels. Narrative 11/28/2017 4:27 PM EDT CLINICAL EXAM: ??SPINE LUMBAR (2-3VWS) -ROUTN, AP, lateral, spot L5-S1 HISTORY: ??ASSESS RIGHT SIDED RADICULOPATHY - ., L5,S1, ?? COMPARISON: ??None FINDINGS: ?? Alignment: Mild levolumbar scoliosis apex at L3-L4. Grade 1 L3-L4 anterolisthesis with endplate irregularity. Moderate L4-L5 disc space narrowing and disc osteophyte complex. Moderate ??L5-S1 disc space narrowing with disc osteophyte complexes. Moderate facet arthropathy of the lower 2 lumbar levels. Vertebral body height: No compression fracture. Procedure Note Sana Todd MD - 11/28/2017 CLINICAL EXAM: SPINE LUMBAR (2-3VWS) -ROUTN, AP, lateral, spot L5-S1 HISTORY: ASSESS RIGHT SIDED RADICULOPATHY - ., L5,S1, COMPARISON: None FINDINGS: Alignment: Mild levolumbar scoliosis apex at L3-L4. Grade 1 L3-L4 anterolisthesis with endplate irregularity. Moderate L4-L5 disc spacenarrowing and disc osteophyte complex. Moderate L5-S1 disc space narrowing withdisc osteophyte complexes. Moderate facet arthropathy of the lower 2 lumbarlevels. Vertebral body height: No compression fracture. IMPRESSION Grade 1 L3-L4 anterolisthesis, measuring approximately 8mm. Moderately advanced degenerative disc disease at the lower 3 lumbarlevels. Unknown IMG DX ORDERABLES documented in this encounter Visit Diagnoses Not on filedocumented in this encounter Care Teams Retail Client Solutions Analyst Relationship Specialty Start Date End Date Ritu Bolaños APRN [address] [place] [id number] PCP - General 05/07/15 02/03/22 documented as of this encounter
--- OUTSIDE RECORDS SUMMARY | 2024-04-12 15:17 | XMS_ITS | Encounter Summary ---
Author Organization [facility] Address [address] [place] [address] Care Team Providers Care Cruller Maker Name Role Phone Unavailable Primary Care Provider Unavailabl e Encounter Details Date Type Department Care Team (Late st Contact Info) Description 06/11/2004 Results Only [facility] [address] [place] [address] Min Bolaños, POLISHER SAND [address] [place], [place] [phone] Social History Tobacco Use Types Packs/Day Years Used Date Smoking Tobacco: Never Assessed Sex and Gender Information Value Date Recorded Sex Assigned at Not on file Gender Identity Not on file Sexual Orientation Not on file documented as of this encounter Plan of Treatment Not on file documented as of this encounter Procedures Procedure Name Priority Date/Time Associated Diagnosis Comments CYTOPATHOLOGY Routine 06/11/2004 0:00 EDT documented in this encounter Results * CYTOPATHOLOGY (06/11/2004 0:00 EDT) Pathology Report: CYTOPATHOLOGY REPORT Reports generated via electronic interface contain original data; however they are lacking the format of the original report. Caution should be taken when reading/interpreti ng unformatted reports. Name: ? JIGNA AMEZCUA ? Accession #: ? [id number] : ? 1945 (Age: 59) ??F ?Collect Date: ? 06/11/2004 Location: ? [facility] ? Receive Date: ? 06/15/2004 Provider: ?MIN BOLAÑOS ANP Copy to: ? Specimen/Source: ?ThinPrep Pap Test, Vagina Last Menstrual Period: ? years Hormonal/Contracep tive Status: ? Yes: Estrotest Treatment History: ? Hysterectomy: with BSO for Fibroids ? SPECIMEN ADEQUACY ? Satisfactory for Evaluation - assessment of transformation zone component not applicable ( e.g. atrophy, vaginal sample, hysterectomy) GENERAL CATEGORIZATION ? Negative for Intraepithelial Lesion or Malignancy ? Document reviewed and electronically signed by: ? GALLITO Fontanez(ASCP) ? Report Date: ??06/18/2004 11:43 End of Report PENNY BRITT 06/11/2004 06/15/2004 Min Bolaños POLISHER SAND PATHOLOGY ORDERTeresa JIMENEZ [facility] [address] [place] [address] documented in this encounter Visit Diagnoses Not on filedocumented in this encounter
--- OUTSIDE RECORDS SUMMARY | 2024-04-12 15:17 | XMS_ITS | Encounter Summary ---
Author Organization [facility] [place] [address] Care Team Providers Care Field Reimbursement Manager Name Role Phone Ritu Bolaños APRN Primary Care Provider [phone]- [phone] Encounter Details Date Type Department Care Team (Late st Contact Info) Description 10/02/2018 Interpretation Only [facility] [address] [phone] Jerome Fontanez MD [address] [place] [id number] Social History Tobacco Use Types Packs/Day Years [...] LUMBAR SPINE 2 OR 3 VIEWS Routine 10/02/2018 9:35 AM EST documented in this encounter Results * XR Lumbar Spine 2 Or 3 Views (Generic) (10/02/2018 9:35 AM EST) Anatomical Region Laterality Modality L-spine N/A Radiographic Elva ging 10/02/2018 9:35 AM EST Impressions 10/02/2018 10:16 AM EST No interval change. Narrative 10/02/2018 10:16 AM EST EXAMINATION: SPINE LUMBAR (2-3VWS) -ROUTN CLINICAL HISTORY: ?? - ??, S/P LUMBAR FUSION, ?? TECHNIQUE: AP and lateral COMPARISON: Lumbar spine radiographs 04/26/2018 FINDINGS: Status post L3-L4 transpedicular magali and screw fixation. No change in appearance of the hardware components. Alignment is unchanged with grade 1 L3 on L4 anterolisthesis. There is eccentric disc height loss to the right side with a levoconvex curvature apex at L3-L4. This alignment is also unchanged from prior. Unchanged degenerative change with near complete loss of disc height at L4-L5 and L5-S1. Procedure Note Darren Duncan MD - 10/02/2018 EXAMINATION: SPINE LUMBAR (2-3VWS) -ROUTN CLINICAL HISTORY: - , S/P LUMBAR FUSION, TECHNIQUE: AP and lateral COMPARISON: Lumbar spine radiographs 04/26/2018 FINDINGS: Status post L3-L4 transpedicular magali and screw fixation. No change inappearance of the hardware components. Alignment is unchanged with grade 1 L3 on L4 anterolisthesis. There is eccentric disc height loss to the right sidewith a levoconvex curvature apex at L3-L4. This alignment is also unchanged fromprior. Unchanged degenerative change with near complete loss of disc height atL4-L5 and L5-S1. IMPRESSION No interval change. Jerome Fontanez MD IMG DX ORDERABLES documented in this encounter Visit Diagnoses Not on filedocumented in this encounter Care Teams Field Reimbursement Manager Relationship Specialty Start Date End Date Ritu Bolaños APRN [address] [place] [address] PCP - General 05/07/15 02/03/22 documented as of this encounter
--- OUTSIDE RECORDS SUMMARY | 2024-04-12 15:17 | XMS_ITS | Encounter Summary ---
Author Organization [facility] Address [address] [place] [address] Care Team Providers Care Health Care Technician Name Role Phone Unknown, Provider Primary Care Provider [phone] Encounter Details Date Type Department Care Team (Late st Contact Info) Description 01/12/2024 Lab Requisition [facility] Pathology & Laboratory Medicine - [facility] [address] [place] [address] Vitor Jasso MD [address] [place] [phone] Encounter for other general examination Social History Tobacco Use Types Packs/Day Years [...] SURGICAL PATHOLOGY Today 01/12/2024 15 :09 EDT documented in this encounter Results * SURGICAL PATHOLOGY (01/12/2024 15:09 EDT) Note to Patient The following pathology results have been interpreted by your pathologist and may be available to you before your health provider has had the opportunity to review them. Please allow time for your provider to receive these results and explore management options, if applicable. 01/18/2024 9:43 EDT [facility] Final Diagnosis A. COLON, RIGHT, POLYP, BIOPSY: - Colonic mucosa with no specific pathologic features. See comment. B. COLON, TRANSVERSE, POLYP, BIOPSY: - Colonic mucosa with prominent lymphoid aggregate. See comment. C. COLON, SIGMOID, POLYP, BIOPSY: - Hyperplastic polyp. 01/18/2024 9:43 [facility] Diagnosis Comment Deeper levels of (A) and (B) of been examined. 01/18/2024 9:43 [facility] Attestation By the signature below, the attending physician certifies that they have 1) personally conducted a gross and/or microscopic examination of the described specimen(s), and/or personally interpreted the results of laboratory testing of the described specimen(s), and 2) personally rendered or confirmed the above diagnosis. 01/18/2024 9:43 [facility] at 0943 Clinical History Chronic constipation, colon polyps 01/18/2024 9:43 [facility] Gross Description A. Received [...] C1. DAQUAN JONES(ASCP) 01/13/2024 8:16 01/18/2024 9:43 [facility] Performing Lab [facility] 01/18/2024 9:43 [facility] Scanned Images 01/18/2024 9:43 [facility] Tissue SIGMOID COLON STRUCTURE / Unknown 01/12/2024 15:09 EDT 01/12/2024 22:26 EDT Tissue specimen (specimen) TRANSVERSE COLON STRUCTURE / Unknown 01/12/2024 15:09 EDT 01/12/2024 22:26 EDT Tissue specimen (specimen) SIGMOID COLON STRUCTURE / Unknown 01/12/2024 15:09 EDT 01/12/2024 22:26 EDT Vitor Jasso MD PATHOLOGY ORDERA BLES [facility] [address] [place] [address] documented in this encounter Visit Diagnoses Diagnosis Encounter for other general examination documented in this encounter Care Teams Health Care Technician Relationship Specialty Start Date End Date Unknown, Provider, PCP - General 08/02/15 documented as of this encounter
--- OUTSIDE RECORDS SUMMARY | 2024-04-12 15:17 | XMS_ITS | Encounter Summary ---
Author Organization [facility] [place] [address] Care Team Providers Care Hydroelectric Plant Operator Name Role Phone Ritu Bolaños APRN Primary Care Provider [phone] Encounter Details Date Type Department Care Team (Late st Contact Info) Description 08/24/2018 External Results Laboratory at [facility] [address] [place] [address] Claudio Cox MD [address] [place] [address] Social History Tobacco Use Types Packs/Day Years Used Date Smoking Tobacco: Never Assessed Sex and Gender Information Value Date Recorded Sex Assigned at Not on file Gender Identity Female 09/25/2020 7:37 PM EST Sexual Orientation Not on file documented as of this encounter Plan of Treatment Not on file documented as of this encounter Procedures Procedure Name Priority Date/Time Associated Diagnosis Comments CRP, ACUTE INFLAMMATION Routine 08/24/2018 11:25 AM EST HEMOGRAM Routine 08/24/2018 11:25 AM EST SEDIMENTATION RATE Routine 08/24/2018 11 :25 AM EST documented in this encounter Results * (ABNORMAL) Sedimentation rate (08/24/2018 11:25 AM EST) Sed Rate 5(External Lab) 0 - 30 mm/hr [facility] 08/24/2018 11:2 5 AM EST 08/24/2018 11:58 AM EST Claudio Cox MD HEMATOLOGY ORDERABLE S Performing Organization Address [facility]/[place] [address] * (ABNORMAL) CRP, acute inflammation (08/24/2018 11:25 AM EST) CRP (mg/dL) < 0.2([facility]) 0.0 - 0.9 mg/dL [facility] 08/24/2018 11:2 5 AM EST 08/24/2018 11:58 AM EST Claudio Cox MD CHEMISTRY ORDERABLES Performing Organization Address [facility] Co de Phone Number [place] [phone] * (ABNORMAL) Hemogram (08/24/2018 11:25 AM EST) WBC 5.7([facility]) 4.0 - 10.0 10^3/uL [facility] RBC 4.13(Exter nal Lab) 3.93 - 5.22 10^6/uL [facility] Hemoglobin 13.3(Exter nal Lab) 11.2 - 15.7 g/dL [facility] Hematocrit 38.9(Exter nal Lab) 34.0 - 45.0 % [facility] MCV 94.2(ExtH) 79.0 - 94.0 fL [facility] MCH 32.2(Exter nal Lab) 26.6 - 32.2 pg [facility] MCHC 34.2(Exter nal Lab) 32.0 - 36.5 g/dL [facility] RDWCV 14.1(Exter nal Lab) 10.9 - 14.4 % [facility] RDWSD 47(ExtH) 35 - 46 fL [facility] Platelets 304([facility]) 145 - 370 10^3/uL [facility] MPV 10.2(Exter nal Lab) 9.0 - 12.0 fL [facility] Neutrophils % 55.2(Exter nal Lab) 34.0 - 71.0 % [facility] Lymphocytes % 30.0(Exter nal Lab) 19.0 - 53.0 % [facility] Monocytes % 8.2([facility]) 4.0 - 13.0 % [facility] Eosinophils % 4.7([facility]) 0.0 - 7.0 % [facility] Basophils % 1.9([facility]) 0.0 - 2.0 % [facility] Neutr Abs (ANC) 3.2([facility]) 1.5 - 6.3 ABS # [facility] Lymphocytes Abs 1.7([facility]) 1.0 - 3.6 ABS # [facility] Monocyte Abs 0.5([facility]) 0.2 - 1.0 ABS # [facility] Eosinophils Abs 0.3([facility]) 0.0 - 0.5 ABS # [facility] Basophils Abs 0.1([facility]) 0.0 - 0.2 ABS # [facility] 08/24/2018 11:2 5 AM EST 08/24/2018 11:58 AM EST Claudio Cox MD HEMATOLOGY ORDERABLE S Performing Organization Address City/State/[facility] Co de Phone Number [facility] [address] [place] [address] documented in this encounter Visit Diagnoses Not on filedocumented in this encounter Care Teams Hydroelectric Plant Operator Relationship Specialty Start Date End Date Ritu Bolaños APRN [address] [place] [phone] PCP - General 05/07/15 02/03/22 documented as of this encounter
--- OUTSIDE RECORDS SUMMARY | 2024-04-12 15:17 | XMS_ITS | Encounter Summary ---
Author Organization [facility] Address [facility] [place] [address] Care Team Providers Care Dye Tank Tender Name Role Phone Beto Perez MD Primary Care Provider [phone] Encounter Details Date Type Department Care Team (Late st Contact Info) Description 04/23/2013 Orders Only XRay at [address] [place] [address] Regla Mccormick MD [facility] DIAGNOSTIC [place] [address] Social History Tobacco Use Types Packs/Day Years [...] Comments FILM LIBRARY STORAGE ONLY MAMMO Routine 04/23/2013 3:20 PM EDT documented in this encounter Results * Film Library- Storage only Mammo (04/23/2013 3:20 PM EDT) Anatomical Region Laterality Modality Other 04/23/2013 3:20 PM EDT Narrative 04/29/2015 3:35 PM EDT This is a Non-reportable exam Procedure Note MANUEL, UNSIGNED REPORT - 04/29/2015 This is a Non-reportable exam Regla Mccormick MD IM FILM LIBRARY O RDERABLES documented in this encounter Visit Diagnoses Not on filedocumented in this encounter Care Teams Dye Tank Tender Relationship Specialty Start Date End Date Beto Perez MD [address] [place] [phone] PCP - General 08/11/10 05/06/15 documented as of this encounter
--- OUTSIDE RECORDS SUMMARY | 2024-04-12 15:17 | XMS_ITS | Encounter Summary ---
[place] [address] Care Team Providers Care Superintendent Seed Mill Name Role Phone Ritu Bolaños APRN Primary Care Provider [phone]- [phone] Encounter Details Date Type Department Care Team (Late st Contact Info) Description 05/02/2015 Orders [place] [address] Allison Liang MD [facility] DR DIAGNOSTIC [place] [address] Social History Tobacco Use Types Packs/Day Years [...] on filedocumented in this encounter Care Teams Superintendent Seed Mill Relationship Specialty Start Date End Date Ritu Bolaños APRN [address] [place] [phone] PCP - General 05/07/15 02/03/22 documented as of this encounter
--- OUTSIDE RECORDS SUMMARY | 2024-04-12 15:17 | XMS_ITS | Encounter Summary ---
Author Organization [facility] [place] [address] Care Team Providers Care Christmas Tree Contractor Name Role Phone Ritu Bolaños APRN Primary Care Provider [phone]- [phone] Encounter Details Date Type Department Care Team (Late st Contact Info) Description 10/19/2018 Interpretation Only [facility] [address] [phone] Jerome Fontanez MD [address] [place] [address] Social History Tobacco Use Types Packs/Day Years [...] Priority Date/Time Associated Diagnosis Comments XR FLUORO MORE THAN ONE HOUR Routine 10/19/2018 7:30 AM EST documented in this encounter Results * XR FLUORO MORE THAN ONE HOUR (10/19/2018 7:30 AM EST) Anatomical Region Laterality Modality Other 10/19/2018 7:30 AM EST Impressions 10/20/2018 8:23 AM EST C-arm fluoroscopy used for intraoperative guidance. Fluoroscopy time: One second Dose (mrad): 0.8mGy Please refer to the attending neurosurgeon's note for operative details. Thank you for letting us participate in the care of this patient. For questions regarding this report, please contact the number below. ? Narrative 10/20/2018 8:23 AM EST EXAMINATION: C-ARM (=>1HR) CLINICAL HISTORY: BILATERAL L2-3 LAMI REVISION L3-4 FUSION - OR ROOM 2, ?? Procedure Note Darren Duncan MD - 10/20/2018 EXAMINATION: C-ARM (=>1HR) CLINICAL HISTORY: BILATERAL L2-3 LAMI REVISION L3-4 FUSION - OR ROOM 2, IMPRESSION C-arm fluoroscopy used for intraoperative guidance. Fluoroscopy time: One second Dose (mrad): 0.8mGy Please refer to the attending neurosurgeon's note for operative details. Thank you for letting us participate in the care of this patient. Forquestions regarding this report, please contact the number below. Jerome Fontanez MD PACS IMAGES documented in this encounter Visit Diagnoses Not on filedocumented in this encounter Care Teams Christmas Tree Contractor Relationship Specialty Start Date End Date Ritu Bolaños APRN [address] [place] [phone] PCP - General 05/07/15 02/03/22 documented as of this encounter
--- OUTSIDE RECORDS SUMMARY | 2024-04-12 15:17 | XMS_ITS | Clinical Summary ---
Author Organization [facility] Address [address] [place] [address] Care Team Providers Care Manager Pathology Name Role Phone Unknown, Provider Primary Care Provider [phone] Encounters Date Type Department Care Team Description 01/12/2024 Lab Requisition [facility] Pathology & Laboratory Medicine - [facility] [address] [place] [address] Vitor Jasso MD Encounter for other general [...] Orientation Not on file Plan of Treatment Health Maintenance Due Date Last Done Comments RSV Immunization ( o r 60+ Years) (1 - 1-dose 60+ series) 2004 Fall Risk Screening 2009 COVID-19 Vaccine (2022-24 season) 2023 Procedures Procedure Name Priority Date/Time Associated Diagnosis [...] management options, if applicable. 01/18/2024 9:[address] [facility] Final Diagnosis A. COLON, RIGHT, POLYP, BIOPSY: - Colonic mucosa with no specific pathologic features. See comment. B. COLON, TRANSVERSE, POLYP, BIOPSY: - Colonic mucosa with prominent lymphoid aggregate. See comment. C. COLON, SIGMOID, POLYP, BIOPSY: - Hyperplastic polyp. 01/18/2024 9:43 [facility] Diagnosis Comment Deeper levels of (A) and (B) of been examined. 01/18/2024 9:43 [facility] Attestation By the signature below, the attending physician certifies that they have 1) personally conducted a gross and/or microscopic examination of the described specimen(s), and/or personally interpreted the results of laboratory testing of the described specimen(s), and 2) personally rendered or confirmed the above diagnosis. 01/18/2024 9:43 [facility] at 0943 Clinical History Chronic constipation, colon polyps 01/18/2024 9:43 [facility] Gross Description A. Received in [...] C1. DAQUAN JONES(ASCP) 01/13/2024 8:16 01/18/2024 9:43 [facility] Performing Lab [facility] 01/18/2024 9:43 [facility] Scanned Images 01/18/2024 9:43 [facility] Tissue SIGMOID COLON STRUCTURE / Unknown 01/12/2024 15:09 EDT 01/12/2024 22:26 EDT Tissue specimen (specimen) TRANSVERSE COLON STRUCTURE / Unknown 01/12/2024 15:09 EDT 01/12/2024 22:26 EDT Tissue specimen (specimen) SIGMOID COLON STRUCTURE / Unknown 01/12/2024 15:09 EDT 01/12/2024 22:26 EDT Vitor Jasso MD PATHOLOGY ORDERA BLES [facility] [address] [place] [address] from Last 3 Months Care Teams Manager Pathology Relationship Specialty Start Date End Date Unknown, Provider, PCP - General 08/02/15
--- OUTSIDE RECORDS SUMMARY | 2024-04-12 15:17 | XMS_ITS | Encounter Summary ---
[facility] [place] [address] Care Team Providers Care Registered Safety Engineer Name Role Phone Ritu Bolaños APRN Primary Care Provider [phone] Encounter Details Date Type Department Care Team (Late st Contact Info) Description 05/07/2015 [place] [address] Jason Hancock MD [facility] [address] [place] [address] Abnormal mammogram, unspecified; Abnormal mammogram Social History Tobacco Use Types Packs/Day Years Used Date Smoking Tobacco: Never Assessed Sex and Gender Information Value Date Recorded Sex Assigned at Not on file Gender Identity Female 09/25/2020 7:37 PM EST Sexual Orientation Not on file documented as of this encounter Plan of Treatment Not on file documented as of this encounter Visit Diagnoses Diagnosis Abnormal mammogram, unspecified Abnormal mammogram Abnormal mammogram, unspecified documented in this encounter Care Teams Registered Safety Engineer Relationship Specialty Start Date End Date Ritu Bolaños APRN [address] [place] [id number] PCP - General 05/07/15 02/03/22 documented as of this encounter
--- OUTSIDE RECORDS SUMMARY | 2024-04-12 15:17 | XMS_ITS | Encounter Summary ---
Author Organization [facility] [place] [address] Care Team Providers Care On Air Personality Name Role Phone Ritu Bolaños APRN Primary Care Provider [phone]- [phone] Encounter Details Date Type Department Care Team (Late st Contact Info) Description 05/02/2015 [place] [address] Allison Liang MD [facility] [address] [place] [address] Abnormal mammogram, unspecified Social History Tobacco Use Types Packs/Day Years Used Date Smoking Tobacco: Never Assessed Sex and Gender Information Value Date Recorded Sex Assigned at Not on file Gender Identity Female 09/25/2020 7:37 PM EST Sexual Orientation Not on file documented as of this encounter Plan of Treatment Not on file documented as of this encounter Results * Mammo Call Back [...] CLINICAL HISTORY: Abnormal Screening. 70[facility] [...] and recommendations were discussed with the patientwho concjose m. Allison Liang MD IMG MAMMO ORD ERABLES documented in this encounter Visit Diagnoses Diagnosis Abnormal mammogram, unspecified Abnormal mammogram, unspecified documented in this encounter Care Teams On Air Personality Relationship Specialty Start Date End Date Ritu Bolaños APRN [address] [place] [address] PCP - General 05/07/15 02/03/22 documented as of this encounter
--- OUTSIDE RECORDS SUMMARY | 2024-04-12 15:17 | XMS_ITS | Encounter Summary ---
Author Organization [facility] Address [facility] [place] [address] Care Team Providers Care Police Shift Commander Name Role Phone Ritu Bolaños APRN Primary Care Provider [phone] Encounter Details Date Type Department Care Team (Late st Contact Info) Description 03/24/2017 Abstract [employer] Conversion Results [address] [place] [address] Apd Conversion, Flowsheet Provider, Social History Tobacco [...] Weight 65.9 kg (145 lb 4.5 oz) 03/24/2017 10:51 AM EDT Sourced from [employer] Conversion Height 160 cm (5' 2.99) 03/24/2017 10: 51 AM EDT Sourced from [employer] Conversion Body Mass Index 25.74 03/24/2017 10:51 AM EDT documented in this encounter Plan of Treatment Not on file documented as of this encounter Visit Diagnoses Not on filedocumented in this encounter Care Teams Police Shift Commander Relationship Specialty Start Date End Date Ritu Bolaños APRN [address] [place] [phone] PCP - General 05/07/15 02/03/22 documented as of this encounter
--- OUTSIDE RECORDS SUMMARY | 2024-04-12 15:17 | XMS_ITS | Encounter Summary ---
Author Organization [facility] Address [facility] [place] [address] Care Team Providers Care Senior Revenue Accountant Name Role Phone Beto Perez MD Primary Care Provider [phone] Encounter Details Date Type Department Care Team (Late st Contact Info) Description 04/20/2012 Orders Only XRay at [address] [place] [address] Regla Mccormick MD [facility] [place] [address] Social History Tobacco Use Types Packs/Day Years [...] Comments FILM LIBRARY STORAGE ONLY MAMMO Routine 04/20/2012 3:20 PM EDT documented in this encounter Results * Film Library- Storage only Mammo (04/20/2012 3:20 PM EDT) Anatomical Region Laterality Modality Other 04/20/2012 3:20 PM EDT Narrative 04/29/2015 3:34 PM EDT This is a Non-reportable exam Procedure Note MANUEL, UNSIGNED REPORT - 04/29/2015 This is a Non-reportable exam Regla Mccormick MD IM FILM LIBRARY O RDERABLES documented in this encounter Visit Diagnoses Not on filedocumented in this encounter Care Teams Senior Revenue Accountant Relationship Specialty Start Date End Date Beto Perez MD [address] [place] [id number] PCP - General 08/11/10 05/06/15 documented as of this encounter
[2024-04-12 15:44] LABS: Abs Immature Grans 0.03 10^3/uL (0.0-0.06); Absolute Basophil Count 0.03 10^3/uL (0.0-0.2); Absolute Eosinophil Count 0.06 10^3/uL (0.0-0.7); Absolute Lymphocyte Count 2.06 10^3/uL (1.2-3.4); Absolute Monocyte Count 0.55 10^3/uL (0.1-0.8); Absolute Neutrophil Count 3.72 10^3/uL (1.2-6.7); Basophils % 0.5 %; Eosinophils % 0.9 %; HGB 13.5 g/dL (11.2-15.7); Immature Grans % 0.5 %; Lymphocytes % 31.9 %; MCH 31.3 pg (27.0-33.0); MCHC 34.6 % (32.0-36.0); MCV 91 fL (80-95); MPV 10.1 fL (8.0-11.0); Monocytes % 8.5 %; Neutrophils % 57.7 %; Platelet Count 264 10^3/uL (130-400); RBC 4.31 10^6/uL (3.93-5.22); RDW 13.7 % (11.7-14.6); RDW-SD 45.8 fL; WBC 6.45 10^3/uL (4.4-10.8)
[2024-04-13 09:43] LABS: IgE 286 IU/mL (<158)
[2024-04-14 14:13] LABS: Protein S Ag, Free 105 % (65 - 160)
[2024-04-14 17:09] LABS: Phospholipid Ab, IgG <9.4 GPL; Phospholipid Ab, IgM <9.4 MPL
[2024-04-16 09:35] LABS: Factor V Leiden(R506Q) Mut Negative (Negative); Prothrombin G20210A Mutation Negative (Negative)
[2024-04-16 12:21] LABS: Activated Partial Thrombo Time 40 sec (25 - 37); INR 2.3 (0.9-1.1); Prothrombin Time (PT) 25.3 sec (9.4 - 12.5)
[2024-04-18 10:51] LABS: Protein C, Functional >150 % (71-199)
[2024-04-18 12:21] LABS: DRVVT Confirmation 0.66 ratio (<1.20); Thrombin Time (Bovine) 21.4 sec (15.8-24.9)
== END 2024-04-12 15:12 | disposition home or self-care (01) ==
LOC: LBO 15:11
PROVIDERS: PCP Nurse Anesthetist, Certified Registered; Visit Provider Internal Medicine Critical Care Medicine
DX: I26.93 Single subsegmental thrombotic pulmonary embolism without acute cor pulmonale (principal); J45.40 Moderate persistent asthma, uncomplicated
CPT/HCPCS: 36415; 81240; 81241; 85305; 85390; 85610; 85611; 85613; 85670; 85730; 85732; 86147; 82785; 85025; 85303

== ENCOUNTER 2024-05-17 11:09 | Outpatient (CLI) | payer BC, SELFPAY ==
--- NOTE | 2024-05-17 11:00 | RT.EKG_ITS ---
APPROVED REPORT Exam: Resting ECG Reason for Exam: new patient, hx mod tricuspid regurg Patient Location: O HR:73 bpm ECG Measurements Heart Rate 73 AXIS LA 159 P 58 QRSd 79 QRS -63 QT 390 T 60 QTc 430 Conclusion Sinus rhythm...normal P axis, V-rate 50- 99 Low voltage limb leads Left anterior fascicular block Early transition
== END 2024-05-17 11:10 | disposition home or self-care (01) ==
LOC: DI.CARD 11:10
PROVIDERS: PCP Nurse Anesthetist, Certified Registered; Visit Provider Internal Medicine Cardiovascular Disease
DX: I07.1 Rheumatic tricuspid insufficiency (principal)
CPT/HCPCS: 93010